=== PATIENT | male | born 1995 | race Caucasian/White ===

== ENCOUNTER 2020-09-13 07:13 | Outpatient (REF) | payer BC, SELFPAY | END 2020-09-13 07:14 | disposition home or self-care (01) | LOC: HO.LAB 07:13 | PROVIDERS: PCP Nurse Practitioner Family; Visit Provider Internal Medicine | DX: Z20.822 Contact with and (suspected) exposure to COVID-19 (principal) | CPT/HCPCS: 36415; C9803; U0003 ==

== ENCOUNTER 2021-04-24 15:04 | Emergency (ER) | payer SELFPAY ==
--- NOTE | ~2021-04-24 | CT_ITS ---
EXAMINATION: CT ABDOMEN AND PELVIS WITH CONTRAST CLINICAL INFORMATION: Abdominal pain. History of gastric bypass and fundoplication. COMPARISON: CT abdomen and pelvis 01/20/2020. TECHNIQUE: Multidetector volumetric images were obtained from the superior aspect of the liver through the pubic symphysis following administration 85 mL of Omnipaque 350 intravenous contrast. Sagittal and coronal reformatted images were obtained on the technologist's workstation. Oral contrast: No This CT examination was performed using dose optimization techniques as appropriate, variously including the following: *Automated exposure control *Adjustment of mA and/or kV according to patient size (this includes techniques or standardized protocols for targeted exams where dose is matched to indication/reason for exam; i.e. extremities or head) *Use of iterative reconstruction technique DLP: 934 mGy-cm FINDINGS: LUNG BASES: The visualized lung bases are unremarkable. LIVER, GALLBLADDER, AND BILIARY TREE: The liver is normal in size, shape, and attenuation. No focal hepatic lesion or biliary ductal dilatation is present. The gallbladder is unremarkable with no evidence of radiopaque gallstones, gallbladder wall thickening, or obvious pericholecystic inflammatory changes. PANCREAS: Unremarkable. SPLEEN: The spleen is unremarkable with a small accessory splenule. ADRENAL GLANDS: Unremarkable. KIDNEYS AND URETERS: The kidneys are normal in size, shape, and attenuation. No hydronephrosis, hydroureter, or calculi seen. No perinephric stranding. There is a 2.4 x 2.1 x 1.9 cm lesion upper/midpole right kidney. No additional cyst or solid mass seen. BLADDER: Unremarkable. GASTROINTESTINAL TRACT: There is scattered stool, gas seen throughout the colon without any significant distention. The small bowel loops are normal caliber. The appendix is not visualized with certainty. No inflammatory process seen in the abdomen. Surgical changes along the gastric fundus are. ABDOMINAL WALL: No significant hernia is appreciated. LYMPH NODES: Normal. VASCULAR: Unremarkable. PELVIC VISCERA: There is no free fluid or free air. OSSEOUS STRUCTURES: Unremarkable. CT/CT abdomen pelvis w con IMPRESSION: No acute intra-abdominal process seen. Postsurgical changes in left epigastric region. Question gastric bypass surgery. Small simple cyst upper/mid pole right kidney, benign.
[2021-04-24 15:36] VITALS: BP 171/110; PULSE 110; RESP 18; TEMP 37; O2SAT 100; BMI 38.7
--- NOTE | 2021-04-24 17:22 | ED.ABDPAIN ---
HPI - Abdominal Pain General Chief Complaint: Abdominal Pain Stated Complaint: HERNIA QUESTION NOT EATING Time Seen by Provider: 04/24/21 21:49 Source: patient Mode of arrival: ambulatory Limitations: no limitations History of Present Illness HPI narrative: 25-year-old male with past medical history of gastric bypass and fundal plication presents with nausea, vomiting, and abdominal pain with tremors. States that his tremor started because of the vomiting, has been vomiting for several days. States that his pain feels similar to when he had a hiatal hernia that required surgical repair. He does not describe any fevers, chills, chest pain or pressure, palpitations, abdominal distention, dysuria, hematuria, diarrhea, constipation, edema, lightheadedness or dizziness. MD elicited complaint: abdominal pain Onset (ago): day(s) Pain Consistency: constant Location: diffuse Severity: moderate Quality: cramping and aching Radiation: epigastric Exacerbating factors: vomiting Associated symptoms: nausea, vomiting and anorexia Related Data Previous Rx's Medication Instructions Recorded ondansetron HCl 4 mg tablet 4 mg PO Q8H PRN #10 tab 04/24/21 (Zofran) Allergies Allergy/AdvReac Type Severity Reaction Status Date / Time amoxicillin Allergy Unknown hives Verified 02/03/20 00:00 Penicillins [PENICILLINS] Allergy Unknown ANAPHYLAXIS Unverified 05/12/20 16:18 red dye [RED DYE] Allergy Unknown UNKNOWN Unverified 05/12/20 16:18 shrimp [SHRIMP] Allergy Unknown UNKNOWN Unverified 05/12/20 16:18 Sulfa (Sulfonamide Allergy Unknown hives Verified 02/03/20 00:00 Antibiotics) sulfamethoxazole Allergy Unknown UNKNOWN Unverified 05/12/20 16:18 [From BACTRIM] trimethoprim [From BACTRIM] Allergy Unknown UNKNOWN Unverified 05/12/20 16:18 Biaxin Allergy Unknown hives Uncoded 02/03/20 00:00 SEAFOOD Allergy Unknown UNKNOWN Uncoded 05/12/20 16:18 Review of Systems Review of Systems Constitutional: No Weight loss, No Fever, No Chills, No Night Sweats, No Fatigue, No Malaise ENT/Mouth: No Hearing loss, No Ear Pain, No Nasal Congestion, No Sinus Pain, No Hoarseness, No sore throat, No Rhinorrhea, No Swallowing Difficulty Eyes: No Eye Pain, No Swelling, No Redness, No Foreign Body, No Discharge, No Vision Changes Cardiovascular: No Chest Pain, No SOB, No Dyspnea on Exertion, No Orthopnea, No Edema, No Palpitations Respiratory: No Cough, No Sputum, No Wheezing, No Smoke Exposure, No Dyspnea Gastrointestinal: Positive Nausea, Positive Vomiting, no Diarrhea, positive abdominal Pain, No Hematochezia, No Melena Genitourinary: no irregular bleeding, No Dysuria, No Urinary Frequency, No Hematuria, No Urinary Incontinence, No Urgency, No Flank Pain, No Urinary Flow Changes, No Hesitancy Musculoskeletal: No joint pain, No Myalgias, No Joint Swelling Skin: No Skin Lesions, No rash Neuro: No Weakness, No Numbness, No Paresthesias, No Loss of Consciousness, No Dizziness, No Headache Psych: No Anxiety/Panic, No Depression, No SI/HI/AH/VH, No Social Issues Heme/Lymph: No Bruising, No Bleeding,No Lymphadenopathy Endocrine: No Polyuria, No Polydipsia, No Temperature Intolerance Yes all other systems are reviewed and are negative Physical Exam Vital Signs: Vital Signs: Last Vital Signs Temp 98 F 04/24/21 22:00 Pulse 88 04/24/21 22:00 Resp 16 04/24/21 22:00 BP 162/93 H 04/24/21 22:00 Pulse Ox 97 04/24/21 22:00 Body Mass Index 38.7 Appearance: Alert. Oriented X3. No acute distress. Eyes: Pupils equal, round and reactive to light. Sclera nonicteric ENT: Pharynx normal. Moist mucous membranes. Neck: Normal inspection. Neck supple. CVS: Tachycardic heart rate and rhythm. Pulses normal. Respiratory: No respiratory distress. Breath sounds normal. Abdomen: Soft and diffusely tender however greater in the epigastric area. Skin: Skin warm and dry. Normal skin color. Normal skin turgor. Extremities: Moves all extremities against resistance. Gait well-balanced and well coordinated. Neuro: No motor deficit. No sensory deficit. Cranial nerves 2-12 intact. Course Course Course Narrative: 25-year-old male status post gastric bypass and fundoplication presents with abdominal pain, nausea, vomiting, and tremors. Will order CT scan of abdomen pelvis with contrast, and labs. Will give something for pain, and Zofran for nausea. Labs indicate hypomagnesemia, CT scan is negative for acute findings. Patient continues with nausea, given Reglan and Benadryl. Patient is able to tolerate p.o. fluids. Discussion with on-call bariatric surgery PA, plan is for patient to follow-up in office as needed. Patient verbalizes understanding of and agrees to plan of care discharge home. Consultations Consultation #1: [place] Time: 22:00 MDM - Abdominal Pain Differential Diagnosis Differential diagnosis: Likely abdominal pain, aortic dissection, acute appendicitis, gastroenteritis, gastritis and pancreatitis Medical Records Attestation: I reviewed the patient's medical records. Lab Data Attestation: I reviewed the patient's lab results. Result diagrams: 04/24/21 18:31 04/24/21 18:31 Labs: Lab Results 04/24/21 04/24/21 04/24/21 Range/Units 18:31 18:31 18:31 WBC 10.5 (4.8-10.8) X10*3/uL RBC 4.33 L (4.60-5.80) X10*6/uL Hgb 14.9 (14.0-18.0) g/dl Hct 40.9 L (42-52) % MCV 94.5 (80-98) fL MCH 34.4 H (27.0-33.0) pg MCHC 36.4 H (31.0-36.0) g/dl RDW 13.9 (11.0-16.0) % Plt Count 266 (160-400) X10*3/uL MPV 9.4 (9.4-12.4) fL Immature Gran % (Auto) 0.3 (0.0-0.4) % Neut % (Auto) 85.6 H (45-73) % Lymph % (Auto) 7.1 L (20-40) % [place] % (Auto) 6.8 (2-11) % Eos % (Auto) 0.0 (0-4) % Baso % (Auto) 0.2 (0-2) % Lymph # (Auto) 0.7 L (1.2-4.9) X10*3/uL [place] # (Auto) 0.7 (0.1-1.2) X10*3/uL Eos # (Auto) 0.0 (0.0-0.4) X10*3/uL Baso # (Auto) 0.0 (0.0-0.2) X10*3/uL Abs Immat Gran (auto) 0.03 (0.00-0.03) X10*3/uL Absolute Neuts (auto) 9.0 H (2.0-8.3) X10*3/uL Absolute Nucleated RBC 0.000 (0.0-0.012) X10*3/uL Nucleated RBC % (auto) 0.0 (0.0-0.2) /100WBC Sodium 136 (135-145) mmol/L Potassium 3.6 (3.3-5.1) mmol/L Chloride 93 L (96-108) mmol/L Carbon Dioxide 26 (22-29) mmol/L Anion Gap 21 H (12-20) BUN 6 L (9-16) mg/dL Creatinine 0.76 (0.5-1.4) mg/dL Estim Creat Clear Calc 193.3 Estimated GFR > 60 Random Glucose 116 H (60-115) mg/dL Lactic Acid (0.5-2.0) mmol/L Calcium 9.8 (8.4-10.2) mg/dL Magnesium 1.3 L* (1.6-2.6) mg/dL Total Bilirubin 1.9 H (0.0-1.0) mg/dL Direct Bilirubin 0.8 H (0.0-0.5) mg/dL AST 74 H (5-37) U/L ALT 49 H (0-40) U/L Alkaline Phosphatase 128 H (39-117) U/L Total Protein 7.6 (6.5-8.0) g/dL Albumin 4.6 (3.5-5.0) g/dL Lipase 23 (8-78) U/L Coronavirus (PCR) (Negative) Influenza Type A (PCR) (Negative) Influenza Type B (PCR) (Negative) RSV RNA Qual (PCR) (Negative) 04/24/21 04/24/21 Range/Units 18:31 18:31 WBC (4.8-10.8) X10*3/uL RBC (4.60-5.80) X10*6/uL Hgb (14.0-18.0) g/dl Hct (42-52) % MCV (80-98) fL MCH (27.0-33.0) pg MCHC (31.0-36.0) g/dl RDW (11.0-16.0) % Plt Count (160-400) X10*3/uL MPV (9.4-12.4) fL Immature Gran % (Auto) (0.0-0.4) % Neut % (Auto) (45-73) % Lymph % (Auto) (20-40) % [place] % (Auto) (2-11) % Eos % (Auto) (0-4) % Baso % (Auto) (0-2) % Lymph # (Auto) (1.2-4.9) X10*3/uL [place] # (Auto) (0.1-1.2) X10*3/uL Eos # (Auto) (0.0-0.4) X10*3/uL Baso # (Auto) (0.0-0.2) X10*3/uL Abs Immat Gran (auto) (0.00-0.03) X10*3/uL Absolute Neuts (auto) (2.0-8.3) X10*3/uL Absolute Nucleated RBC (0.0-0.012) X10*3/uL Nucleated RBC % (auto) (0.0-0.2) /100WBC Sodium (135-145) mmol/L Potassium (3.3-5.1) mmol/L Chloride (96-108) mmol/L Carbon Dioxide (22-29) mmol/L Anion Gap (12-20) BUN (9-16) mg/dL Creatinine (0.5-1.4) mg/dL Estim Creat Clear Calc Estimated GFR Random Glucose (60-115) mg/dL Lactic Acid 1.8 (0.5-2.0) mmol/L Calcium (8.4-10.2) mg/dL Magnesium (1.6-2.6) mg/dL Total Bilirubin (0.0-1.0) mg/dL Direct Bilirubin (0.0-0.5) mg/dL AST (5-37) U/L ALT (0-40) U/L Alkaline Phosphatase (39-117) U/L Total Protein (6.5-8.0) g/dL Albumin (3.5-5.0) g/dL Lipase (8-78) U/L Coronavirus (PCR) NEGATIVE (Negative) Influenza Type A (PCR) NEGATIVE (Negative) Influenza Type B (PCR) NEGATIVE (Negative) RSV RNA Qual (PCR) NEGATIVE (Negative) Imaging Data CT abdomen pelvis: Attestation: I personally reviewed and interpreted this imaging study as follows: Radiologist's impression: FINDINGS: LUNG BASES: The visualized lung bases are unremarkable.? LIVER, GALLBLADDER, AND BILIARY TREE: The liver is normal in size, shape, and attenuation. No focal hepatic lesion or biliary ductal dilatation is present. The gallbladder is unremarkable with no evidence of radiopaque gallstones, gallbladder wall thickening, or obvious pericholecystic inflammatory changes.? PANCREAS: Unremarkable.? SPLEEN: The spleen is unremarkable with a small accessory splenule.? ADRENAL GLANDS: Unremarkable.? KIDNEYS AND URETERS: The kidneys are normal in size, shape, and attenuation. No hydronephrosis, hydroureter, or calculi seen. No perinephric stranding. There is a 2.4 x 2.1 x 1.9 cm lesion upper/midpole right kidney. No additional cyst or solid mass seen. BLADDER: Unremarkable.? GASTROINTESTINAL TRACT: There is scattered stool, gas seen throughout the colon without any significant distention. The small bowel loops are normal caliber. The appendix is not visualized with certainty. No inflammatory process seen in the abdomen. Surgical changes along the gastric fundus are.? ABDOMINAL WALL: No significant hernia is appreciated.? LYMPH NODES: Normal. VASCULAR: Unremarkable. PELVIC VISCERA: There is no free fluid or free air.? OSSEOUS STRUCTURES: Unremarkable.? CT/CT abdomen pelvis w con IMPRESSION: No acute intra-abdominal process seen. ? Postsurgical changes in left epigastric region. Question gastric bypass surgery. ? Small simple cyst upper/mid pole right kidney, benign. Discharge Plan Discharge Clinical Impression: Hypomagnesemia Abdominal pain Qualifiers: Abdominal location: generalized Qualified Code(s): R10.84 - Generalized abdominal pain Nausea & vomiting Qualifiers: Vomiting type: bilious vomiting Qualified Code(s): R11.14 - Bilious vomiting Patient Disposition: Home, Self-Care Instructions: Acute Nausea and Vomiting (ED), Abdominal Pain (ED), Hypomagnesemia (ED) Additional Instructions: You were evaluated for nausea, vomiting, and abdominal pain. Your lab values indicated a low magnesium level. We repleted or replenished your magnesium with IV magnesium. Please follow-up with primary care physician to get your lab values drawn next week Please follow-up with bariatric surgery. You may follow-up with her own surgeon or call Nickie KO. Use Zofran as needed for nausea and vomiting. Please follow the instructions for this medication. Do not take more medication than prescribed. Thank you for choosing this emergency department for evaluation. Please follow-up with primary care physician as needed. Return to the emergency department for any new, concerning, or worsening symptoms. Prescriptions: New ondansetron HCl [Zofran] 4 mg tablet 4 mg PO Q8H PRN (Reason: nausea and vomiting) Qty: 10 RF: 0 Referrals: Nickie Rose PA-C [[facility] [employer]] - 2 days [facility] Past Medical History Attestation statement: The following information was validated with the patient. Source: old records reviewed Medical History (Updated 04/24/21 @ 22:38 by Frances Gutierrez NP) Hernia Social History Social History Advance Directives: No Advance Directives Information Provided: No
--- NOTE | 2021-04-24 17:25 | ECG_ITS ---
Test Reason : MAGNESIUM DEFFICIENC Blood Pressure : / mmHG Vent. Rate : 089 BPM Atrial Rate : 089 BPM P-R Int : 128 ms QRS Dur : 086 ms QT Int : 364 ms P-R-T Axes : 020 021 -04 degrees QTc Int : 442 ms Normal sinus rhythm Normal ECG No previous ECGs available Referred By: Frances Gutierrez Electronically Signed By:NATHAN MOSES
[2021-04-24] MEDS: Morphine Sulfate 4 MG/ML CARTRIDGE IVPUSH (18:36)
[2021-04-24] MEDS: ondansetron HCL 4 MG/2 ML VIAL IVPUSH (18:36)
[2021-04-24 18:37] LABS: MANUAL DIFF FLAG NO
[2021-04-24] MEDS: 0.9 % Sodium Chloride 1,000 ML 999 ML IVCONT (18:37)
[2021-04-24 18:41] LABS: Basophils Percent Auto 0.2 % (0-2); Hematocrit 40.9 % (42-52); Hemoglobin 14.9 g/dl (14.0-18.0); Imm Gran Abs Auto 0.03 X10*3/uL (0.00-0.03); Imm Gran Pct Auto 0.3 % (0.0-0.4); Lymphocytes Absolute Auto 0.7 X10*3/uL (1.2-4.9); Lymphocytes Percent Auto 7.1 % (20-40); Mean Corpuscular HGB Conc 36.4 g/dl (31.0-36.0); Mean Corpuscular Hemoglobin 34.4 pg (27.0-33.0); Mean Corpuscular Volume 94.5 fL (80-98); Mean Platelet Volume 9.4 fL (9.4-12.4); Monocytes Absolute Auto 0.7 X10*3/uL (0.1-1.2); Monocytes Percent Auto 6.8 % (2-11); Neutrophils Percent Auto 85.6 % (45-73); Platelet Count 266 X10*3/uL (160-400); Red Blood Count 4.33 X10*6/uL (4.60-5.80); Red Cell Distribution Width 13.9 % (11.0-16.0); White Blood Count 10.5 X10*3/uL (4.8-10.8)
--- NOTE | 2021-04-24 18:43 | PC.NURSE ---
this rn faied iv x2, 20 gal lla, 20ga rla. iv initiated 22 ga l hand and pt medicated as ordered.
[2021-04-24 18:58] LABS: Magnesium 1.3 mg/dL (1.6-2.6)
[2021-04-24 19:03] LABS: Lactic Acid 1.8 mmol/L (0.5-2.0)
[2021-04-24 19:17] LABS: Alanine Aminotransferase 49 U/L (0-40); Albumin Level 4.6 g/dL (3.5-5.0); Alkaline Phosphatase 128 U/L (39-117); Anion Gap 21 (12-20); Aspartate Amino Transferase 74 U/L (5-37); Bilirubin Direct 0.8 mg/dL (0.0-0.5); Bilirubin Total 1.9 mg/dL (0.0-1.0); Blood Urea Nitrogen 6 mg/dL (9-16); Calcium 9.8 mg/dL (8.4-10.2); Carbon Dioxide 26 mmol/L (22-29); Chloride 93 mmol/L (96-108); Creatinine Clr Calc Pharmacy 193.3; Estimated Glomerular Filt Rate > 60; Glucose Random 116 mg/dL (60-115); Lipase 23 U/L (8-78); Potassium 3.6 mmol/L (3.3-5.1); Sodium 136 mmol/L (135-145); Total Protein 7.6 g/dL (6.5-8.0)
[2021-04-24 19:29] LABS: Influenza A PCR NEGATIVE (Negative); Influenza B PCR NEGATIVE (Negative); Resp Syncy Virus RNA Qual PCR NEGATIVE (Negative); SARS COV2 PCR INHOUSE NEGATIVE (Negative)
[2021-04-24] MEDS: iohexoL 350 MG/ML 100 ML INFUS..BTL IV (19:34)
[2021-04-24 20:00] VITALS: BP 157/91; PULSE 91; RESP 18; TEMP 26.6; O2SAT 96
[2021-04-24 22:00] VITALS: BP 162/93; PULSE 88; RESP 16; TEMP 36.6; O2SAT 97
[2021-04-24] MEDS: Metoclopramide HCl 10 MG/2 ML VIAL IVPUSH (22:27)
[2021-04-24] MEDS: diphenhydrAMINE HCL 50 MG/ML VIAL 25 MG IVPUSH (22:27)
[2021-04-24] MEDS: Magnesium Sulfate/H2O 2 GM/50 ML PIGGYBACK IV (22:27)
[2021-04-24 23:43] VITALS: BP 146/89; PULSE 80; RESP 18; O2SAT 97
== END 2021-04-24 23:46 | disposition home or self-care (01) ==
PROVIDERS: Nurse Practitioner Family; Emergency Provider Internal Medicine; PCP Nurse Practitioner Family
DX: E83.42 Hypomagnesemia (principal); R10.84 Generalized abdominal pain; R11.14 Bilious vomiting; Z20.822 Contact with and (suspected) exposure to COVID-19; Z98.84 Bariatric surgery status; Z79.899 Other long term (current) drug therapy
CPT/HCPCS: 0241U; 36415; 74177; 80053; 80076; 82248; 83605; 83690; 83735; 85025; 87040; 93005; 96361; 96365; 96366; 96375; 99284; J1200; J2270; J2405; J2765; J3475; Q9967

== ENCOUNTER 2021-05-29 15:21 | Outpatient (REF) | payer OTHER, SELFPAY | END 2021-05-29 15:22 | disposition home or self-care (01) | LOC: HO.LAB 15:21 | PROVIDERS: Visit Provider Internal Medicine | DX: Z20.822 Contact with and (suspected) exposure to COVID-19 (principal) | CPT/HCPCS: U0003; U0005 ==

== ENCOUNTER 2022-04-12 20:52 | Emergency (ER) | payer MEDICAID, SELFPAY ==
--- NOTE | 2022-04-12 | ECG_ITS ---
Test Reason : cheat pain Blood Pressure : / mmHG Vent. Rate : 122 BPM Atrial Rate : 122 BPM P-R Int : 126 ms QRS Dur : 082 ms QT Int : 314 ms P-R-T Axes : 029 078 010 degrees QTc Int : 447 ms Sinus tachycardia Low voltage QRS Septal infarct , age undetermined Abnormal ECG When compared with ECG of 24-APR-2021 21:27, Septal infarct is now Present Referred By: Generic ED Physician Electronically Signed By:NATHAN MOSES
--- NOTE | ~2022-04-12 | XR_ITS ---
EXAMINATION: XR CHEST CLINICAL INFORMATION: Chest pain COMPARISON: 07/12/2018 TECHNIQUE: Frontal view of the chest was obtained. FINDINGS: Low lung volumes. Cardiomediastinal silhouette is normal. Lungs are clear without consolidation, pleural effusion or pneumothorax. No acute osseous abnormalities. XR/XR chest 1V IMPRESSION: Low lung volumes. No acute process.
[2022-04-12 20:59] VITALS: BP 148/94; PULSE 122; RESP 20; TEMP 36.7; O2SAT 96; BMI 37.3
[2022-04-12 21:54] VITALS: BP 134/94; PULSE 108; RESP 20; TEMP 37.7; O2SAT 98
--- NOTE | 2022-04-12 22:01 | PC.NURSE ---
COVID SWAB COLLECTED NOW AND SENT TO THE LAB
--- NOTE | 2022-04-12 22:12 | ED.CHESTPAIN ---
HPI - Chest Pain General Chief Complaint: Chest Pain Stated Complaint: Chest pain and vomiting Time Seen by Provider: 04/12/22 21:33 Source: patient Mode of arrival: ambulatory Limitations: no limitations History of Present Illness HPI narrative: Patient comes to the emergency room complaining of nausea and vomiting. Patient states that 4 days ago, patient went to a green party, the next day patient started having a lot of nausea and vomiting. Patient thought this was secondary to alcohol intoxication. However, as the days went by, his symptoms did not improve. Patient denies any significant abdominal pain, patient complaining of occasional chest pains, occasional shortness of breath. No fever, no chills, no diarrhea. Related Data Previous Rx's Medication Instructions Recorded ondansetron HCl 4 mg tablet 4 mg PO Q8H PRN nausea and 04/24/21 (Zofran) vomiting #10 tabs nirmatrelvir 300 mg (150 mg See Rx Instructions PO .COMPLEX 04/13/22 x2)-ritonavir 100 mg tablet,dose #30 ea pack(EUA) (Paxlovid) ondansetron 4 mg disintegrating 4 mg PO Q6H PRN nausea and 04/13/22 tablet vomiting #10 tabs Allergies Allergy/AdvReac Type Severity Reaction Status Date / Time amoxicillin Allergy Unknown hives Verified 04/12/22 22:01 Penicillins [PENICILLINS] Allergy Unknown ANAPHYLAXIS Verified 04/12/22 22:01 red dye [RED DYE] Allergy Unknown UNKNOWN Verified 04/12/22 22:01 shrimp [SHRIMP] Allergy Unknown UNKNOWN Verified 04/12/22 22:01 Sulfa (Sulfonamide Allergy Unknown hives Verified 04/12/22 22:01 Antibiotics) sulfamethoxazole Allergy Unknown UNKNOWN Verified 04/12/22 22:01 [From BACTRIM] trimethoprim [From BACTRIM] Allergy Unknown UNKNOWN Verified 04/12/22 22:01 Biaxin Allergy Unknown hives Uncoded 02/03/20 00:00 SEAFOOD Allergy Unknown UNKNOWN Uncoded 05/12/20 16:18 Review of Systems Review of Systems: Constitutional : No Weight loss, No Fever, No Chills, No Night Sweats, No Fatigue, No Malaise ENT/Mouth : No Hearing loss, No Ear Pain, No Nasal Congestion, No Sinus Pain, No Hoarseness, No sore throat, No Rhinorrhea, No Swallowing Difficulty Eyes: No Eye Pain, No Swelling, No Redness, No Foreign Body, No Discharge, No Vision Changes Cardiovascular : Complaining of intermittent Chest Pain, No SOB, No Dyspnea on Exertion, No Orthopnea, No Edema, No Palpitations Respiratory : No Cough, No Sputum, No Wheezing, No Smoke Exposure, No Dyspnea Gastrointestinal : Complaining of nausea and vomiting No Diarrhea, No Constipation, No abdominal Pain, No Hematochezia, No Melena Genitourinary : no irregular bleeding, No Dysuria, No Urinary Frequency, No Hematuria, No Urinary Incontinence, No Urgency, No Flank Pain, No Urinary Flow Changes, No Hesitancy Musculoskeletal : No joint pain, No Myalgias, No Joint Swelling Skin : No Skin Lesions, No rash Neuro : No Weakness, No Numbness, No Paresthesias, No Loss of Consciousness, No Dizziness, No Headache Psych : No Anxiety/Panic, No Depression, No SI/HI/AH/VH, No Social Issues, Heme/Lymph: No Bruising, No Bleeding,No Lymphadenopathy Endocrine : No Polyuria, No Polydipsia, No Temperature Intolerance [facility] Past Medical History Medical History (Updated 04/13/22 @ 00:05 by Yamileth Encinas MD) Hernia Social History Social History Alcohol intake: unknown Patient Tobacco Use Status: Never used Tobacco Use of substances other than those prescribed or required for medical reasons: No Advance Directives: No Advance Directives Information Provided: No Physical Exam Vital Signs: Vital Signs: Last Vital Signs Temp 99.5 F 04/12/22 23:58 Pulse 94 04/12/22 23:58 Resp 19 04/12/22 23:58 BP 131/83 04/12/22 23:58 Pulse Ox 98 04/12/22 23:58 O2 Del Method 04/12/22 23:58 BMI result Body Mass Index 37.3 Const: Other: Appearance: Alert. Oriented X3. No acute distress. Eyes: Pupils equal, round and reactive to light. ENT: Pharynx normal. Dry oral mucosa Neck: Normal inspection. Neck supple. No lymph nodes noted. No crepitus CVS: Tachycardic, regular rhythm rhythm. Pulses normal. Normal S1 and S2 Respiratory: No respiratory distress. Breath sounds normal. No Wheezing. No rales Abdomen: Soft and nontender. No rigidity. No distention. Skin: Skin warm and dry. Normal skin color. Normal skin turgor. Extremities: No lower extremity edema. No Lacerations. No Rash Neuro: Oriented X 3. No motor deficit. No sensory deficit. Moving all extremities. No slurred speech. CN 2 through 12 grossly intact Psych: calm, cooperative, anxious Course Course Course Narrative: Of patient's labs are pending. Patient receiving IV fluids and Zofran Patient tested positive for COVID-19. Patient is at day 5 since he has been symptomatic. I discussed with the patient that at this point in time, patient still in the window of treatment for COVID-19, but it may not be as effective. Patient decided to go ahead and get treated. Patient states this is the 3rd time that he gets COVID. Patient refuses to get immunized MDM - Chest Pain Lab Data Result diagrams: 04/12/22 22:14 04/12/22 22:14 Labs: Lab Results 04/12/22 04/12/22 04/12/22 Range/Units 21:58 22:14 22:14 WBC 3.6 L (4.8-10.8) X10*3/uL RBC 3.89 L (4.60-5.80) X10*6/uL Hgb 13.4 L (14.0-18.0) g/dl Hct 38.2 L (42.0-52.0) % MCV 98.2 H (80.0-98.0) fL MCH 34.4 H (27.0-33.0) pg MCHC 35.1 (31.0-36.0) g/dl RDW 15.4 (11.0-16.0) % Plt Count 205 (160-400) X10*3/uL MPV 9.4 (9.4-12.4) fL Immature Gran % (Auto) 0.6 H (0.0-0.4) % Neut % (Auto) 77.1 H (45-73) % Lymph % (Auto) 8.1 L (20-40) % [place] % (Auto) 13.9 H (2-11) % Eos % (Auto) 0.0 (0-4) % Baso % (Auto) 0.3 (0-2) % Lymph # (Auto) 0.3 L (1.2-4.9) X10*3/uL [place] # (Auto) 0.5 (0.1-1.2) X10*3/uL Eos # (Auto) 0.0 (0.0-0.4) X10*3/uL Baso # (Auto) 0.0 (0.0-0.2) X10*3/uL Abs Immat Gran (auto) 0.02 (0.00-0.03) X10*3/uL Absolute Neuts (auto) 2.8 (2.0-8.3) x10*3/uL Absolute Nucleated RBC 0.000 (0.0-0.012) X10*3/uL Nucleated RBC % (auto) 0.0 (0.0-0.2) /100WBC Troponin I High Sens < 3.5 (<3.5-35.0) ng/L Urine Color Urine Appearance Urine pH (5.0-8.0) Ur Specific [place] (1.005-1.025) Urine Protein (Neg-Trace) mg/dL Urine Glucose (UA) (Negative) mg/dL Urine Ketones (Negative) mg/dL Urine Blood (Negative) Urine Nitrite (Negative) Ur Leukocyte Esterase (Negative) Urine RBC (0-2) /HPF Urine WBC (0-5) /HPF Ur Squamous Epith Cells (0-2) /HPF Urine Bacteria (None Seen) Hyaline Casts (0-2) /LPF Urine Fentanyl Screen (Not Detect) Ur Barbiturates Screen (Not Detect) Ur Phencyclidine Scrn (Not Detect) Ur Amphetamines Screen (Not Detect) U Benzodiazepines Scrn (Not Detect) Urine Cocaine Screen (Not Detect) U Marijuana (THC) Screen (Not Detect) COVID-19 (SARAH) Positive A (Negative) COVID-19 Clin Com See Note 04/12/22 04/12/22 Range/Units 22:56 22:56 WBC (4.8-10.8) X10*3/uL RBC (4.60-5.80) X10*6/uL Hgb (14.0-18.0) g/dl Hct (42.0-52.0) % MCV (80.0-98.0) fL MCH (27.0-33.0) pg MCHC (31.0-36.0) g/dl RDW (11.0-16.0) % Plt Count (160-400) X10*3/uL MPV (9.4-12.4) fL Immature Gran % (Auto) (0.0-0.4) % Neut % (Auto) (45-73) % Lymph % (Auto) (20-40) % [place] % (Auto) (2-11) % Eos % (Auto) (0-4) % Baso % (Auto) (0-2) % Lymph # (Auto) (1.2-4.9) X10*3/uL [place] # (Auto) (0.1-1.2) X10*3/uL Eos # (Auto) (0.0-0.4) X10*3/uL Baso # (Auto) (0.0-0.2) X10*3/uL Abs Immat Gran (auto) (0.00-0.03) X10*3/uL Absolute Neuts (auto) (2.0-8.3) x10*3/uL Absolute Nucleated RBC (0.0-0.012) X10*3/uL Nucleated RBC % (auto) (0.0-0.2) /100WBC Troponin I High Sens (<3.5-35.0) ng/L Urine Color Dark Yellow Urine Appearance Cloudy Urine pH 6.0 (5.0-8.0) Ur Specific [place] 1.025 (1.005-1.025) Urine Protein 30 (1+) H (Neg-Trace) mg/dL Urine Glucose (UA) Negative (Negative) mg/dL Urine Ketones Trace (Negative) mg/dL Urine Blood Negative (Negative) Urine Nitrite Negative (Negative) Ur Leukocyte Esterase Trace H (Negative) Urine RBC 0-2 (0-2) /HPF Urine WBC 0-5 (0-5) /HPF Ur Squamous Epith Cells 6-10 (0-2) /HPF Urine Bacteria None Seen (None Seen) Hyaline Casts 11-20 (0-2) /LPF Urine Fentanyl Screen Not Detected (Not Detect) Ur Barbiturates Screen Not Detected (Not Detect) Ur Phencyclidine Scrn Not Detected (Not Detect) Ur Amphetamines Screen Not Detected (Not Detect) U Benzodiazepines Scrn Not Detected (Not Detect) Urine Cocaine Screen Not Detected (Not Detect) U Marijuana (THC) Screen POSITIVE H (Not Detect) COVID-19 (SARAH) (Negative) COVID-19 Clin Com Discharge Plan Discharge Clinical Impression: COVID-19, Nausea & vomiting Patient Disposition: Home, Self-Care Instructions: COVID-19 (Coronavirus Disease 2019) (ED) Additional Instructions: Please follow-up with your primary care physician tomorrow. If you have any worsening or new symptoms, please return to the emergency room or call 911 Prescriptions: New Paxlovid (EUA) 300 mg (150 mg x 2)-100 mg tablets,dose pack See Rx Instructions .ROUTE .COMPLEX Qty: 30 0RF Rx Instructions: take TWO 150 mg tablets of nirmatrelvir with ONE 100 mg tablet of ritonavir twice daily for 5 days ondansetron 4 mg tablet,disintegrating 4 mg PO Q6H PRN (Reason: nausea and vomiting) Qty: 10 0RF No Action ondansetron HCl [Zofran] 4 mg tablet 4 mg PO Q8H PRN (Reason: nausea and vomiting) Qty: 10 0RF
[2022-04-12 22:19] LABS: COVID-19 Test Positive (Negative)
[2022-04-12] MEDS: ondansetron HCL 4 MG/2 ML VIAL IVPUSH (22:20)
[2022-04-12 22:23] LABS: Basophils Percent Auto 0.3 % (0-2); Hematocrit 38.2 % (42.0-52.0); Hemoglobin 13.4 g/dl (14.0-18.0); Imm Gran Abs Auto 0.02 X10*3/uL (0.00-0.03); Imm Gran Pct Auto 0.6 % (0.0-0.4); Lymphocytes Absolute Auto 0.3 X10*3/uL (1.2-4.9); Lymphocytes Percent Auto 8.1 % (20-40); MANUAL DIFF FLAG NO; Mean Corpuscular HGB Conc 35.1 g/dl (31.0-36.0); Mean Corpuscular Hemoglobin 34.4 pg (27.0-33.0); Mean Corpuscular Volume 98.2 fL (80.0-98.0); Mean Platelet Volume 9.4 fL (9.4-12.4); Monocytes Absolute Auto 0.5 X10*3/uL (0.1-1.2); Monocytes Percent Auto 13.9 % (2-11); Neutrophils Absolute Auto 2.8 x10*3/uL (2.0-8.3); Neutrophils Percent Auto 77.1 % (45-73); Platelet Count 205 X10*3/uL (160-400); Red Blood Count 3.89 X10*6/uL (4.60-5.80); Red Cell Distribution Width 15.4 % (11.0-16.0); White Blood Count 3.6 X10*3/uL (4.8-10.8)
[2022-04-12] MEDS: 0.9 % Sodium Chloride 2,000 ML 999 ML IVCONT (22:23)
[2022-04-12 22:45] LABS: Troponin-I High Sensitivity < 3.5 ng/L (<3.5-35.0)
[2022-04-12 23:05] LABS: Appearance Urine Cloudy; Color Urine Dark Yellow; Glucose Urine UA Negative (Negative); Leukocyte Esterase Urine Trace (Negative); Nitrite Urine Negative (Negative); Specific Gravity - Urine 1.025 (1.005-1.025); Urine Blood Negative (Negative); Urine Ketones Trace mg/dL (Negative); Urine Protein 30 (1+) mg/dL (Neg-Trace)
[2022-04-12 23:18] LABS: Bacteria Urine None Seen (None Seen); RBC Urine 0-2 /HPF (0-2); WBC Urine 0-5 /HPF (0-5)
[2022-04-12 23:58] VITALS: BP 131/83; PULSE 94; RESP 19; TEMP 37.5; O2SAT 98
--- NOTE | 2022-04-13 00:29 | PC.NURSE ---
d/c education provided, iv access removed, questions address no further concerns at this time, pt left with his father ambulatory steady gait no difficulty, pt able to dress himself with no issues
[2022-04-13 00:36] LABS: Anion Gap 18 (12-20); Blood Urea Nitrogen 2 mg/dL (9-16); Calcium 8.1 mg/dL (8.4-10.2); Carbon Dioxide 25 mmol/L (22-29); Chloride 99 mmol/L (96-108); Creatinine Clr Calc Pharmacy 203.9; Estimated Glomerular Filt Rate > 60; Glucose Random 90 mg/dL (60-115); Magnesium 0.9 mg/dL (1.6-2.6); Potassium 3.6 mmol/L (3.3-5.1); Sodium 138 mmol/L (135-145)
[2022-04-13 01:43] LABS: Amphetamine Screen Urine Not Detected (Not Detect); Barbiturates, Urine Not Detected (Not Detect); Benzodiazepines Screen Urine Not Detected (Not Detect); Cannabinoid Screen Urine POSITIVE (Not Detect); Cocaine Screen Urine Not Detected (Not Detect); Fentanyl, urine Not Detected (Not Detect); Opiate Screen Urine Not Detected (Not Detect); Phencyclidine Screen Urine Not Detected (Not Detect)
== END 2022-04-13 00:32 | disposition home or self-care (01) ==
PROVIDERS: Emergency Provider Emergency Medicine; PCP Nurse Practitioner Family
DX: U07.1 COVID-19 (principal); R11.2 Nausea with vomiting, unspecified; F12.90 Cannabis use, unspecified, uncomplicated
CPT/HCPCS: 36415; 71045; 80048; 80307; 81001; 83735; 84484; 85025; 87635; 93005; 96361; 96374; 99284; 99285; J2405

== ENCOUNTER 2022-04-13 00:51 | Emergency (ER) | payer MEDICAID, SELFPAY ==
[2022-04-13 00:53] VITALS: BP 140/91; PULSE 220; RESP 20; TEMP 36.7; O2SAT 97; BMI 37.3
--- NOTE | 2022-04-13 01:02 | ED_ITS ---
HPI - Recheck/Abnormal Lab/Rx General Chief Complaint: Recheck/Abnormal Lab/Rx Stated Complaint: mg+ low, was called Time Seen by Provider: 04/13/22 01:01 Source: patient Mode of arrival: ambulatory Limitations: no limitations History of Present Illness HPI narrative: Patient was discharged from the hospital, there was a delay in labs. After the patient left, the lab called and informed me that the patient's magnesium is 0.9. I called the patient back. Related Data Previous Rx's Medication Instructions Recorded ondansetron HCl 4 mg tablet 4 mg PO Q8H PRN nausea and 04/24/21 (Zofran) vomiting #10 tabs nirmatrelvir 300 mg (150 mg See Rx Instructions PO .COMPLEX 04/13/22 x2)-ritonavir 100 mg tablet,dose #30 ea pack(EUA) (Paxlovid) ondansetron 4 mg disintegrating 4 mg PO Q6H PRN nausea and 04/13/22 tablet vomiting #10 tabs Allergies Allergy/AdvReac Type Severity Reaction Status Date / Time amoxicillin Allergy Unknown hives Verified 04/12/22 22:01 Penicillins [PENICILLINS] Allergy Unknown ANAPHYLAXIS Verified 04/12/22 22:01 red dye [RED DYE] Allergy Unknown UNKNOWN Verified 04/12/22 22:01 shrimp [SHRIMP] Allergy Unknown UNKNOWN Verified 04/12/22 22:01 Sulfa (Sulfonamide Allergy Unknown hives Verified 04/12/22 22:01 Antibiotics) sulfamethoxazole Allergy Unknown UNKNOWN Verified 04/12/22 22:01 [From BACTRIM] trimethoprim [From BACTRIM] Allergy Unknown UNKNOWN Verified 04/12/22 22:01 Biaxin Allergy Unknown hives Uncoded 02/03/20 00:00 SEAFOOD Allergy Unknown UNKNOWN Uncoded 05/12/20 16:18 Review of Systems Review of Systems: Constitutional : No Weight loss, No Fever, No Chills, No Night Sweats, No Fatigue, No Malaise ENT/Mouth : No Hearing loss, No Ear Pain, No Nasal Congestion, No Sinus Pain, No Hoarseness, No sore throat, No Rhinorrhea, No Swallowing Difficulty Eyes: No Eye Pain, No Swelling, No Redness, No Foreign Body, No Discharge, No Vision Changes Cardiovascular : No Chest Pain, No SOB, No Dyspnea on Exertion, No Orthopnea, No Edema, No Palpitations Respiratory : No Cough, No Sputum, No Wheezing, No Smoke Exposure, No Dyspnea Gastrointestinal : No Nausea, No Vomiting, No Diarrhea, No Constipation, No abdominal Pain, No Hematochezia, No Melena Genitourinary : no irregular bleeding, No Dysuria, No Urinary Frequency, No Hematuria, No Urinary Incontinence, No Urgency, No Flank Pain, No Urinary Flow Changes, No Hesitancy Musculoskeletal : No joint pain, No Myalgias, No Joint Swelling Skin : No Skin Lesions, No rash Neuro : No Weakness, No Numbness, No Paresthesias, No Loss of Consciousness, No Dizziness, No Headache Psych : No Anxiety/Panic, No Depression, No SI/HI/AH/VH, No Social Issues, Heme/Lymph: No Bruising, No Bleeding,No Lymphadenopathy Endocrine : No Polyuria, No Polydipsia, No Temperature Intolerance PMFSH Past Medical History Medical History Hernia Social History Social History Alcohol intake: unknown Patient Tobacco Use Status: Never used Tobacco Use of substances other than those prescribed or required for medical reasons: No Advance Directives: No Physical Exam Vital Signs: Vital Signs: Last Vital Signs Temp 98.0 F 04/13/22 00:53 Pulse 96 04/13/22 01:35 Resp 18 04/13/22 01:35 BP 140/91 H 04/13/22 00:53 Pulse Ox 97 04/13/22 00:53 O2 Del Method 04/13/22 00:53 BMI result Body Mass Index 37.3 Const: Other: Appearance: Alert. Oriented X3. No acute distress. Eyes: Pupils equal, round and reactive to light. ENT: Pharynx normal. Neck: Normal inspection. Neck supple. No lymph nodes noted. No crepitus CVS: Normal heart rate and rhythm. Pulses normal. Normal S1 and S2 Respiratory: No respiratory distress. Breath sounds normal. No Wheezing. No rales Abdomen: Soft and nontender. No rigidity. No distention. Skin: Skin warm and dry. Normal skin color. Normal skin turgor. Extremities: No lower extremity edema. No Lacerations. No Rash Neuro: Oriented X 3. No motor deficit. No sensory deficit. Moving all extremities. No slurred speech. CN 2 through 12 grossly intact Psych: calm, cooperative, normal affect Course Course Course Narrative: Patient is being given IV magnesium 2 g. Magnesium levels need to be recheck. If normal eyes, patient to be discharged. Sign-out given to Dr. Martínez Discharge Plan Discharge Clinical Impression: Hypomagnesemia Patient Disposition: Still a Patient Instructions: Hypomagnesemia (ED) Additional Instructions: Please follow-up with your primary care physician tomorrow. If you have any wor sening or new symptoms, please return to the emergency room or call 911 Prescriptions: No Action ondansetron HCl [Zofran] 4 mg tablet 4 mg PO Q8H PRN (Reason: nausea and vomiting) Qty: 10 0RF Paxlovid (EUA) 300 mg (150 mg x 2)-100 mg tablets,dose pack See Rx Instructions .ROUTE .COMPLEX Qty: 30 0RF Rx Instructions: take TWO 150 mg tablets of nirmatrelvir with ONE 100 mg tablet of ritonavir twice daily for 5 days ondansetron 4 mg tablet,disintegrating 4 mg PO Q6H PRN (Reason: nausea and vomiting) Qty: 10 0RF
[2022-04-13] MEDS: Magnesium Sulfate/H2O 2 GM/50 ML PIGGYBACK IV (01:30)
[2022-04-13 01:35] VITALS: PULSE 96; RESP 18
--- NOTE | 2022-04-13 02:41 | PC.NURSE ---
redraw of blood work being done now
[2022-04-13 03:16] LABS: Magnesium 1.4 mg/dL (1.6-2.6)
[2022-04-13] MEDS: Magnesium Oxide 400 MG TABLET 800 MG PO (03:47)
[2022-04-13 03:55] VITALS: BP 154/94; PULSE 108; RESP 21; TEMP 37.8
== END 2022-04-13 03:58 | disposition home or self-care (01) ==
PROVIDERS: Emergency Provider Emergency Medicine
DX: E83.42 Hypomagnesemia (principal); R79.89 Other specified abnormal findings of blood chemistry; Z79.899 Other long term (current) drug therapy
CPT/HCPCS: 36415; 83735; 96374; 99284; J3475

== ENCOUNTER 2023-08-24 09:08 | Inpatient (IN) | payer MEDICAID, SELFPAY ==
--- NOTE | ~2023-08-24 | XR_ITS ---
EXAMINATION: XR TOES, LEFT CLINICAL INFORMATION: Great toe pain and swelling. Evaluate for fracture. COMPARISON: None available. TECHNIQUE: 3 views of the left toes were obtained. FINDINGS: No acute fracture or dislocation. Tiny first metatarsophalangeal joint marginal osteophytes. No osseous erosion. Small cortical irregularity along the medial aspect of the distal phalangeal base which could represent normal variation versus a small osteochondroma. No concerning lytic or blastic osseous lesion. XR/XR toe LT min 2V IMPRESSION: 1. No acute fracture or dislocation. 2. Mild first metatarsophalangeal degenerative arthritis.
[2023-08-24 09:23] VITALS: BP 140/79; PULSE 126; RESP 20; TEMP 35.9; O2SAT 100; BMI 39.5
[2023-08-24 09:56] LABS: MANUAL DIFF FLAG NO
[2023-08-24 09:58] LABS: Basophils Percent Auto 0.2 % (0-2); Eosinophils Absolute Auto 0.1 X10*3/uL (0.0-0.4); Eosinophils Percent Auto 0.8 % (0-4); Hematocrit 30.4 % (42.0-52.0); Hemoglobin 11.1 g/dl (14.0-18.0); Imm Gran Abs Auto 0.08 X10*3/uL (0.00-0.03); Imm Gran Pct Auto 0.8 % (0.0-0.4); Lymphocytes Absolute Auto 1.6 X10*3/uL (1.2-4.9); Lymphocytes Percent Auto 16.5 % (20-40); Mean Corpuscular HGB Conc 36.5 g/dl (31.0-36.0); Mean Platelet Volume 8.9 fL (9.4-12.4); Monocytes Absolute Auto 0.6 X10*3/uL (0.1-1.2); Monocytes Percent Auto 5.9 % (2-11); NRBC Pct Auto 0.5 /100WBC (0.0-0.2); Neutrophils Absolute Auto 7.5 x10*3/uL (2.0-8.3); Neutrophils Percent Auto 75.8 % (45-73); Platelet Count 399 X10*3/uL (160-400); Red Blood Count 2.64 X10*6/uL (4.60-5.80); Red Cell Distribution Width 18.2 % (11.0-16.0); White Blood Count 9.9 X10*3/uL (4.8-10.8)
[2023-08-24 10:06] LABS: Mean Corpuscular Volume 115.2 fL (80.0-98.0)
[2023-08-24 10:12] LABS: Alanine Aminotransferase 25 U/L (0-40); Albumin Level 3.5 g/dL (3.5-5.0); Alkaline Phosphatase 171 U/L (39-117); Anion Gap 17 (12-20); Aspartate Amino Transferase 40 U/L (5-37); Bilirubin Direct 0.3 mg/dL (0.0-0.5); Bilirubin Total 0.5 mg/dL (0.0-1.0); Blood Urea Nitrogen 3 mg/dL (9-16); Calcium 6.7 mg/dL (8.4-10.2); Carbon Dioxide 25 mmol/L (22-29); Chloride 100 mmol/L (96-108); Creatinine Clr Calc Pharmacy 231.3; Estimated Glomerular Filt Rate > 60; Glucose Random 115 mg/dL (60-115); Lipase 21 U/L (8-78); Magnesium 1.5 mg/dL (1.6-2.6); Potassium 2.8 mmol/L (3.3-5.1); Sodium 139 mmol/L (135-145); Total Protein 6.8 g/dL (6.5-8.0)
--- NOTE | 2023-08-24 11:32 | ECG_ITS ---
Test Reason : SOB Blood Pressure : / mmHG Vent. Rate : 103 BPM Atrial Rate : 103 BPM P-R Int : 124 ms QRS Dur : 080 ms QT Int : 374 ms P-R-T Axes : 010 020 000 degrees QTc Int : 489 ms Sinus tachycardia Otherwise normal ECG When compared with ECG of 12-APR-2022 21:06, Questionable change in QRS axis Referred By: Darlyn Watts Electronically Signed By:FRANCISCO MCKEON
--- NOTE | 2023-08-24 11:49 | ED.WEAKNESS ---
HPI - Weakness General Chief complaint: General Medical Stated complaint: unable to move legs Time Seen by Provider: 08/24/23 11:32 Source: patient and family Mode of arrival: ambulatory Limitations: no limitations History of Present Illness HPI Narrative: 27 yo male with PMH of alcohol abuse drinks a pint or more a day has been trying to cut down denies any recent n/v/d or URI over the past week he tries to walk and his legs feel weak and numb and he has a hard time getting around. He has fallen no head trauma. He went to normal xrays. He has never had a seizure from withdrawal but shakes in the AM without ETOH, last drink was yesterday. MD Complaint: generalized weakness, numbness and difficulty walking Onset (ago): week(s) (1) Duration: intermittent Location: LLE and RLE Migration: none Severity: moderate Quality: numbness and aching Relieving factors: rest Exacerbating factors: movement and exertion Context: other (heavy ETOH use) Associated symptoms: other (anxiety, tremors) Related Data Allergies Allergy/AdvReac Type Severity Reaction Status Date / Time amoxicillin Allergy Unknown hives Verified 08/24/23 09:26 Penicillins [PENICILLINS] Allergy Unknown ANAPHYLAXIS Verified 08/24/23 09:26 red dye [RED DYE] Allergy Unknown UNKNOWN Verified 08/24/23 09:26 shrimp [SHRIMP] Allergy Unknown UNKNOWN Verified 08/24/23 09:26 Sulfa (Sulfonamide Allergy Unknown hives Verified 08/24/23 09:26 Antibiotics) sulfamethoxazole Allergy Unknown UNKNOWN Verified 08/24/23 09:26 [From BACTRIM] trimethoprim [From BACTRIM] Allergy Unknown UNKNOWN Verified 08/24/23 09:26 Biaxin Allergy Unknown hives Uncoded 02/03/20 00:00 SEAFOOD Allergy Unknown UNKNOWN Uncoded 05/12/20 16:18 Review of Systems Review of Systems: Constitutional : No Fever, No Chills, No Fatigue ENT/Mouth : No sore throat, No Rhinorrhea Eyes: No Eye Pain, No Swelling, No Redness Cardiovascular : No Chest Pain, No SOB, No Dyspnea on Exertion Respiratory : No Cough, No Sputum Gastrointestinal : No Nausea, No Vomiting, No Diarrhea, No abdominal Pain Genitourinary : No Dysuria, No Urinary Frequency, No Hematuria, Musculoskeletal : No joint pain, No Myalgias, No Joint Swelling Skin : No Skin Lesions, No rash Neuro : pos Weakness, pos Numbness, No Dizziness, no Headache Psych : pos Anxiety/Panic, No Depression All other systems reviewed and are negative [facility] Past Medical History Source: old records reviewed Medical History (Updated 08/24/23 @ 12:11 by Darlyn Watts DO) Alcoholism Hernia Social History Social History (Updated 08/24/23 @ 12:05 by Darlyn Watts DO) Alcohol intake: current Patient Tobacco Use Status: Never used Tobacco Advance Directives: No Physical Exam Vital Signs: Vital Signs: Last Vital Signs Temp 96.7 F L 08/24/23 09:23 Pulse 126 H 08/24/23 09:23 Resp 20 08/24/23 09:23 BP 140/79 H 08/24/23 09:23 Pulse Ox 100 08/24/23 09:23 O2 Del Method Room Air 08/24/23 09:23 BMI result Body Mass Index 39.5 Appearance: Alert. Oriented X3. No acute distress. Anxious, tremors in both hands noted Eyes: Pupils equal, round and reactive to light. ENT: Pharynx dry MM, tongue fasciculations Neck: Normal inspection. Neck supple. CVS: taachycardic heart rate and rhythm. Pulses normal. Respiratory: No respiratory distress. Breath sounds normal. Abdomen: Soft and non-tender. Skin: Skin warm and dry. Normal skin color. Normal skin turgor. Extremities: No lower extremity edema. No calf ttp Neuro: Oriented X 3. No motor deficit. No sensory deficit. Sensation in legs, normal reflexes, pain to palpation on both plantar surfaces Medications Administered Generic Name Dose Route Start Last Admin Trade Name Freq PRN Reason Stop Dose Admin Sodium Chloride 1,000 mls @ 999 mls/hr 08/24/23 11:45 08/24/23 12:23 Ns IV 08/24/23 12:45 999 mls/hr .Q1H1M MICHAEL Administration Discontinued Medications Generic Name Dose Route Start Last Admin Trade Name Freq PRN Reason Stop Dose Admin Phenobarbital Sodium 292 mg 08/24/23 12:00 08/24/23 12:22 Phenobarbital Sodium 130 Mg/Ml Im Once IM 08/24/23 12:01 292 mg ONCE ONE Administration Protocol Potassium Chloride 40 meq 08/24/23 11:31 08/24/23 12:23 Potassium Chloride Packet 20 Meq Packet PO 08/24/23 11:32 40 meq ONCE ONE Administration Medical Decision Making Medical Decision Making [facility] Narrative: 27 yo male heavy ETOH use with hx of tremors he appears in withdrawal now - at this time has LE weakness and numbness he is NV intact has some form of neuropathy he has hypokalemia and hypomagnesemia - he did not have a preceding GI or URI to this to suggest GBS suspect ETOH neuropathy and lyte abnormality causing symptoms at this tiara IV magnesium, PO K, IV K, phenobarb protocol, thiamine and admission. Differential Diagnosis Differential Diagnoses: The differential diagnosis associated with the presentation includes ETOH withdrawal, neuropathy, GBS seems unlikely, lyte abnormality Admission/Observation Consideration of admission/observation: Escalation of care including admission/observation considered admit for lyte repletion, ETOH withdrawal Consult Healthcare Provider Management of the patient was discussed with: Hospitalist (will admit) Lab Data [facility] Lab Attestation statement: I reviewed the patient's lab results. 08/24/23 09:51 08/24/23 09:51 Labs: Lab Results 08/24/23 Range/Units 09:51 WBC 9.9 (4.8-10.8) X10*3/uL RBC 2.64 L D (4.60-5.80) X10*6/uL Hgb 11.1 L (14.0-18.0) g/dl Hct 30.4 L D (42.0-52.0) % MCV 115.2 H (80.0-98.0) fL MCH 42.0 H (27.0-33.0) pg MCHC 36.5 H (31.0-36.0) g/dl RDW 18.2 H (11.0-16.0) % Plt Count 399 D (160-400) X10*3/uL MPV 8.9 L (9.4-12.4) fL Immature Gran % (Auto) 0.8 H (0.0-0.4) % Neut % (Auto) 75.8 H (45-73) % Lymph % (Auto) 16.5 L (20-40) % [place] % (Auto) 5.9 (2-11) % Eos % (Auto) 0.8 (0-4) % Baso % (Auto) 0.2 (0-2) % Lymph # (Auto) 1.6 (1.2-4.9) X10*3/uL [place] # (Auto) 0.6 (0.1-1.2) X10*3/uL Eos # (Auto) 0.1 (0.0-0.4) X10*3/uL Baso # (Auto) 0.0 (0.0-0.2) X10*3/uL Abs Immat Gran (auto) 0.08 H (0.00-0.03) X10*3/uL Absolute Neuts (auto) 7.5 (2.0-8.3) x10*3/uL Absolute Nucleated RBC 0.050 H (0.0-0.012) X10*3/uL Nucleated RBC % (auto) 0.5 H (0.0-0.2) /100WBC Sodium 139 (135-145) mmol/L Potassium 2.8 L D (3.3-5.1) mmol/L Chloride 100 (96-108) mmol/L Carbon Dioxide 25 (22-29) mmol/L Anion Gap 17 (12-20) BUN 3 L (9-16) mg/dL Creatinine 0.63 (0.5-1.4) mg/dL Estim Creat Clear Calc 231.3 Estimated GFR > 60 Random Glucose 115 (60-115) mg/dL Calcium 6.7 L D (8.4-10.2) mg/dL Magnesium 1.5 L (1.6-2.6) mg/dL Total Bilirubin 0.5 (0.0-1.0) mg/dL Direct Bilirubin 0.3 (0.0-0.5) mg/dL AST 40 H (5-37) U/L ALT 25 (0-40) U/L Alkaline Phosphatase 171 H (39-117) U/L Total Protein 6.8 (6.5-8.0) g/dL Albumin 3.5 (3.5-5.0) g/dL Lipase 21 (8-78) U/L Ethyl Alcohol < 10 mg/dL Independent Interpretation I performed an independent interpretation of an: EKG Interpretation: Rate: 103 Rhythm: sinus tachycardia [place]: normal Normal P waves. Normal JANIE. Normal QRS complex. ST T wave : no DELANEY, inverted t wave III, qTC: 489 prior studies: no acute ischemia The study has been interpreted contemporaneously by me. . Independent Historian Clinical information obtained from an independent historian. History obtained from or confirmed by: Parent External Record Review External record reviewed: Inpatient record Critical Care Time Critical Care Time Critical Care Time: Yes Total Critical Care Time: 45 Attestation: repletion of IV K and IV magnesium, start on phenobarb protocol I attest to this time spent taking care of the patient Discharge Plan Discharge Clinical Impression: Acute hypokalemia, Hypomagnesemia, Difficulty walking Alcohol withdrawal Qualifiers: Complication of substance-induced condition: with unspecified complication Qualified Code(s): F10.939 - Alcohol use, unspecified with withdrawal, unspecified Patient Disposition: Admitted As Inpatient
[2023-08-24 12:05] LABS: Ethanol < 10 mg/dL
[2023-08-24] MEDS: PHENobarbitaL sodium 130 MG/ML IM ONCE 292 MG IM (12:22)
[2023-08-24] MEDS: Potassium Chloride Packet 20 MEQ PACKET 40 MEQ PO (12:23)
[2023-08-24] MEDS: 0.9 % Sodium Chloride 1,000 ML 999 ML IV (12:23)
[2023-08-24] MEDS: Potassium Chloride/H20 10 MEQ/100 ML PIGGYBACK 100 MEQ IV ×4 (12:37→17:00)
[2023-08-24] MEDS: Magnesium Sulfate/H2O 2 GM/50 ML PIGGYBACK IV (12:37)
[2023-08-24] MEDS: Thiamine HCL 200 MG in 0.9 % Sodium Chloride 100 ML 204 MG IV (12:37)
--- NOTE | 2023-08-24 12:48 | PHA.MEDREC ---
Pharmacy Consult ? Medication Reconciliation Pharmacy has completed the medication reconciliation.
[2023-08-24 13:26] VITALS: BP 146/82; PULSE 102; RESP 16; O2SAT 100
--- NOTE | 2023-08-24 13:48 | PM.IMHP ---
History of Present Illness Date of Service: 08/24/23 Chief Complaint: tremors, weakness A 27 years old male with PMH of Alcoholism, obestity post gastric sleeve who presents with few days of weakness, numbness and tremors. He reports drinking 1/2L of Vodka daily for a while now. over the last few days he noticed increased lower extrimities weakness with associated pain and decrease sensation with feeling unsteady on his feet. He continued to drink and reported tremors and abnormal contractions in his hands but no reported seizure. never had seizure before. last drink 08/23 night. Found to have electrolytes imbalance of magnesium and potassium. admitted for further treatment. Review of Systems Review of Systems: No fever, chills but reports weakness and legs pain No chest pain, palpitation No shortness of breath or coughing No abdominal pain, but has nausea No urinary symptoms No rash or wounds PMFSH Medical History Alcoholism Hernia Surgical History H/O gastric sleeve Social History Alcohol intake: current Patient Tobacco Use Status: Never used Tobacco Advance Directives: No Meds Allergies Allergy/AdvReac Type Severity Reaction Status Date / Time amoxicillin Allergy Unknown hives Verified 08/24/23 09:26 Penicillins [PENICILLINS] Allergy Unknown ANAPHYLAXIS Verified 08/24/23 09:26 red dye [RED DYE] Allergy Unknown UNKNOWN Verified 08/24/23 09:26 shrimp [SHRIMP] Allergy Unknown UNKNOWN Verified 08/24/23 09:26 Sulfa (Sulfonamide Allergy Unknown hives Verified 08/24/23 09:26 Antibiotics) sulfamethoxazole Allergy Unknown UNKNOWN Verified 08/24/23 09:26 [From BACTRIM] trimethoprim [From BACTRIM] Allergy Unknown UNKNOWN Verified 08/24/23 09:26 Biaxin Allergy Unknown hives Uncoded 02/03/20 00:00 SEAFOOD Allergy Unknown UNKNOWN Uncoded 05/12/20 16:18 Active Medications: Current Medications Potassium Chloride (Potassium Chloride/H20) 10 meq in 100 mls @ 100 mls/hr IV Q1H MICHAEL Stop: 08/24/23 15:44 Last Admin: 08/24/23 12:37 Dose: 100 mls/hr Pharmacy Consult (Consult Rx Etoh Phenob Im/Po) 1 each MISCELLANE ONCE PRN; Protocol PRN Reason: Consult order Phenobarbital (Phenobarbital 15 Mg Tablet) 45 mg PO BID [facility]; Protocol Stop: 08/26/23 21:01 Phenobarbital (Phenobarbital 30 Mg Tablet) 30 mg PO BID MICHAEL; Protocol Stop: 08/28/23 21:01 Phenobarbital (Phenobarbital 30 Mg Tablet) 30 mg PO DAILY [facility]; Protocol Stop: 08/30/23 09:01 Phenobarbital Sodium (Phenobarbital Sodium 65 Mg/Ml Vial Q3hx2) 219 mg IM Q3H MICHAEL; Protocol Stop: 08/24/23 18:01 Home Medications Medication Instructions Recorded Confirmed Last Taken Type magnesium oxide 400 mg (241.3 mg 400 mg PO DAILY 08/24/23 08/24/23 1 Week Ago History magnesium) tablet ~08/17/23 Physical Exam Vital Signs and Narrative: Vital Signs: Last Vital Signs Temp 96.7 F L 08/24/23 09:23 Pulse 102 H 08/24/23 13:26 Resp 16 08/24/23 13:26 BP 146/82 H 08/24/23 13:26 Pulse Ox 100 08/24/23 13:26 O2 Del Method Room Air 08/24/23 13:26 BMI result Body Mass Index 39.5 Const: Other: Constitutional : Awake, interactive, obese, not in distress Neck : Normal inspection, Supple Cardiovascular : RRR, no JVP, no lower extremity edema Respiratory : good bilateral air entry, no crackles, wheezes or rhonchi Gastrointestinal: soft, lax, Normal bowel sounds, Non tender Skin : Warm, Dry Neurological : Alert & oriented x3, No focal deficit , painful to touch lower extrimities but normal sensation , tremors Results Labs 08/24/23 09:51 08/24/23 09:51 Labs: Laboratory Results - last 24 hr 08/24/23 09:51 MCV 115.2 H MCH 42.0 H MCHC 36.5 H RDW 18.2 H Plt Count 399 D MPV 8.9 L Immature Gran % (Auto) 0.8 H Neut % (Auto) 75.8 H Lymph % (Auto) 16.5 L [place] % (Auto) 5.9 Eos % (Auto) 0.8 Baso % (Auto) 0.2 Lymph # (Auto) 1.6 [place] # (Auto) 0.6 Eos # (Auto) 0.1 Baso # (Auto) 0.0 Abs Immat Gran (auto) 0.08 H Absolute Neuts (auto) 7.5 Absolute Nucleated RBC 0.050 H Nucleated RBC % (auto) 0.5 H Anion Gap 17 Estim Creat Clear Calc 231.3 Estimated GFR > 60 Random Glucose 115 Calcium 6.7 L D Magnesium 1.5 L Total Bilirubin 0.5 Direct Bilirubin 0.3 AST 40 H ALT 25 Alkaline Phosphatase 171 H Total Protein 6.8 Albumin 3.5 Lipase 21 Ethyl Alcohol < 10 Assessment and Plan (1) Difficulty walking: Status: Acute (2) Alcohol withdrawal: Qualifiers: Complication of substance-induced condition: with unspecified complication Qualified Code(s): F10.939 - Alcohol use, unspecified with withdrawal, unspecified Status: Acute (3) Hypomagnesemia: Status: Acute (4) Acute hypokalemia: Status: Acute Plan A 27 years old male with PMH of Alcoholism, obestity post gastric sleeve who presents with few days of weakness, numbness and tremors. He reports drinking 1/2L of Vodka daily for a while now. Alcohol abuse and withdrawal CIWA protocol Phenobarbital therapy Folic, Thiamine and [facility] addiction team consult IVF Neuropathy in LE could be related to alcoholism\hx gastric sleeve check B12, folate Hypokalemia, acute replacement given follow BMP Hypomagnesemia replacement given Obesity advised weight loss DVT PPx Lovenox The patient will likely need 2 night of inpatient stay for treatment of alcohol withdrawal and correcting electrolytes abnomalities Quality Stroke Does the patient have a stroke diagnosis?: No VTE Prior VTE?: No VTE Risk Level:: Medical - moderate - high VTE Device Contraindication: Treatment Not Indicated VTE Drug Contraindication: N/A - Med Ordered
[2023-08-24] MEDS: Enoxaparin Sodium 40 MG/0.4 ML SYRINGE SUBCUT (14:40)
[2023-08-24] MEDS: Thiamine HCL 100 MG TABLET PO (14:41)
[2023-08-24] MEDS: Folic Acid 1 MG TABLET PO (14:41)
[2023-08-24] MEDS: Multivitamin TABLET 1 TAB PO (14:41)
--- NOTE | 2023-08-24 15:11 | PC.NURSE ---
22g iv inserted L hand. all meds given as documented. he reports chronic leg pain, denies any new pain. vss. pt's father is at his bedside
[2023-08-24 15:27] LABS: Appearance Urine Clear; Color Urine Yellow; Glucose Urine UA Negative (Negative); Leukocyte Esterase Urine Trace (Negative); Nitrite Urine Negative (Negative); PH 6.5 (5.0-9.0); Specific Gravity - Urine 1.015 (1.005-1.025); UMIC TRIGGER UACC YES; Urine Blood Negative (Negative); Urine Ketones Negative (Negative); Urine Protein Negative (Neg-Trace)
[2023-08-24 15:29] LABS: Bacteria Urine None Seen (None Seen); RBC Urine 0-2 /HPF (0-2); Squamous Epithelial Cell Urine 0-2 /HPF (0-2); WBC Urine 0-5 /HPF (0-5)
[2023-08-24] MEDS: PHENobarbitaL sodium 65 MG/ML VIAL Q3Hx2 219 MG IM ×2 (15:32→19:19)
[2023-08-24 15:36] LABS: Folate < 2.2 ng/mL (> or = 4.0); Vitamin B12 378 pg/mL (200-900)
[2023-08-24] MEDS: Lactated Ringers 1,000 ML 100 ML IVCONT ×2 (15:41→23:27)
[2023-08-24 15:50] VITALS: BP 125/78; PULSE 107; RESP 23; O2SAT 100
[2023-08-24 19:45] VITALS: BP 131/80; PULSE 99; RESP 14; TEMP 36; O2SAT 98
[2023-08-24 23:00] VITALS: BP 112/56; PULSE 99; RESP 16; TEMP 36.1; O2SAT 97
[2023-08-24] MEDS: Acetaminophen 325 MG TABLET 650 MG PO (23:26)
[2023-08-25 07:06] VITALS: BP 101/51; PULSE 99; RESP 18; TEMP 36.3; O2SAT 95
[2023-08-25] MEDS: Acetaminophen 325 MG TABLET 650 MG PO ×2 (07:36→21:56)
[2023-08-25] MEDS: Folic Acid 1 MG TABLET PO (07:36)
[2023-08-25] MEDS: Multivitamin TABLET 1 TAB PO (07:37)
[2023-08-25] MEDS: Magnesium Oxide 400 MG TABLET PO (07:37)
[2023-08-25] MEDS: PHENobarbitaL 15 MG TABLET 45 MG PO ×2 (07:37→21:57)
[2023-08-25] MEDS: Thiamine HCL 100 MG TABLET PO (07:43)
[2023-08-25] MEDS: Lactated Ringers 1,000 ML 100 ML IVCONT ×2 (07:44→17:25)
[2023-08-25 09:22] LABS: Anion Gap 12 (12-20); Blood Urea Nitrogen 3 mg/dL (9-16); Calcium 5.9 mg/dL (8.4-10.2); Carbon Dioxide 26 mmol/L (22-29); Chloride 104 mmol/L (96-108); Creatinine Clr Calc Pharmacy 280.2; Estimated Glomerular Filt Rate > 60; Glucose Random 82 mg/dL (60-115); Potassium 3.2 mmol/L (3.3-5.1); Sodium 139 mmol/L (135-145)
[2023-08-25 10:19] LABS: Albumin Level 2.7 g/dL (3.5-5.0)
--- NOTE | 2023-08-25 10:21 | P.PNIM_ITS ---
Subjective Subjective Date of Service: 08/25/23 Interval History: Seen and evaluated this morning reporting left foot pain still having mild tremors scoring lower on CIWA no overnight events Review of Systems Review of Systems: Yes all other systems are reviewed and are negative Physical Exam 2 Vital Signs: Vital Signs: Last Vital Signs Temp 97.3 F 08/25/23 07:06 Pulse 99 08/25/23 07:06 Resp 18 08/25/23 07:06 BP 101/51 L 08/25/23 07:06 Pulse Ox 95 08/25/23 07:06 O2 Del Method Room Air 08/25/23 07:06 BMI result Body Mass Index 39.5 Const: Other: Constitutional : Awake, interactive, obese, not in distress Neck : Normal inspection, Supple Cardiovascular : RRR, no JVP, no lower extremity edema Respiratory : good bilateral air entry, no crackles, wheezes or rhonchi Gastrointestinal: soft, lax, Normal bowel sounds, Non tender Skin : Warm, Dry Skeletal: mild swelling over the Lt big toe base Neurological : Alert & oriented x3, No focal deficit ,less painful to touch lower extrimities but normal sensation ,less tremors Objective Data Active Medications Acetaminophen (Acetaminophen 325 Mg Tablet) 650 mg PO Q6H PRN PRN Reason: Pain, Mild (Pain Scale 1-3) Last Admin: 08/25/23 07:36 Dose: 650 mg Documented By: SPRING Enoxaparin Sodium (Enoxaparin Sodium 40 Mg/0.4 Ml Syringe) 40 mg SUBCUT Q24H [facility] Last Admin: 08/24/23 14:40 Dose: 40 mg Documented By: NIRU Folic Acid (Folic Acid 1 Mg Tablet) 1 mg PO DAILY [facility] Last Admin: 08/25/23 07:36 Dose: 1 mg Documented By: SPRING Lactated Ringer's (Lr) 1,000 mls @ 100 mls/hr IVCONT .Q10H [facility] Last Admin: 08/25/23 07:44 Dose: 100 mls/hr Documented By: SPRING Calcium Gluconate (Calcium Gluconate) 2 gm in 100 mls @ 50 mls/hr IV ONCE ONE Stop: 08/25/23 11:34 Ketorolac Tromethamine (Ketorolac Tromethamine 15 Mg/Ml Vial) 15 mg IVPUSH Q6H PRN PRN Reason: Pain, Moderate(Pain Scale 4-6) Magnesium Oxide (Magnesium Oxide 400 Mg Tablet) 400 mg PO DAILY [facility] Last Admin: 08/25/23 07:37 Dose: 400 mg Documented By: SPRING Multivitamins/Vitamin C (Multivitamin Tablet) 1 tab PO DAILY [facility] Last Admin: 08/25/23 07:37 Dose: 1 tab Documented By: SPRING Pharmacy Consult (Consult Rx Etoh Phenob Im/Po) 1 each MISCELLANE ONCE PRN; Protocol PRN Reason: Consult order Phenobarbital (Phenobarbital 15 Mg Tablet) 45 mg PO BID [facility]; Protocol Stop: 08/26/23 21:01 Last Admin: 08/25/23 07:37 Dose: 45 mg Documented By: SPRING Phenobarbital (Phenobarbital 30 Mg Tablet) 30 mg PO BID [facility]; Protocol Stop: 08/28/23 21:01 Phenobarbital (Phenobarbital 30 Mg Tablet) 30 mg PO DAILY [facility]; Protocol Stop: 08/30/23 09:01 Sodium Chloride (0.9 % Sodium Chloride Flush 3 Ml Syringe) 3 ml IVFLUSH QSHIFT [facility] Last Admin: 08/25/23 07:37 Dose: Not Given Documented By: SPRING Non-Admin Reason: IV Running Thiamine HCl (Thiamine Hcl 100 Mg Tablet) 100 mg PO DAILY [facility] Last Admin: 08/25/23 07:43 Dose: 100 mg Documented By: SPRING Labs 08/24/23 09:51 08/25/23 07:50 Labs: Laboratory Results - last 24 hr 08/24/23 08/24/23 08/24/23 09:51 14:31 14:52 Hold Purple Top Anion Gap Estim Creat Clear Calc Estimated GFR Random Glucose Calcium Albumin Vitamin B12 378 Folate < 2.2 L Urine Color Yellow Urine Appearance Clear Urine pH 6.5 Ur Specific Delta 1.015 Urine Protein Negative Urine Glucose (UA) Negative Urine Ketones Negative Urine Blood Negative Urine Nitrite Negative Ur Leukocyte Esterase Trace H Urine RBC 0-2 Urine WBC 0-5 Ur Squamous Epith Cells 0-2 Urine Bacteria None Seen Hyaline Casts 3-5 Ethyl Alcohol < 10 08/25/23 07:50 Hold Purple Top SEE NOTE Anion Gap 12 Estim Creat Clear Calc 280.2 Estimated GFR > 60 Random Glucose 82 Calcium 5.9 L* D Albumin 2.7 L Vitamin B12 Folate Urine Color Urine Appearance Urine pH Ur Specific Delta Urine Protein Urine Glucose (UA) Urine Ketones Urine Blood Urine Nitrite Ur Leukocyte Esterase Urine RBC Urine WBC Ur Squamous Epith Cells Urine Bacteria Hyaline Casts Ethyl Alcohol Assessment and Plan (1) Alcohol withdrawal: Status: Acute (2) Hypomagnesemia: Status: Acute (3) Acute hypokalemia: Status: Acute (4) Folate deficiency: Status: Acute (5) Hypocalcemia: Status: Acute Plan A 27 years old male with PMH of Alcoholism, obestity post gastric sleeve who presents with few days of weakness, numbness and tremors. He reports drinking 1/2L of Vodka daily for a while now. Alcohol abuse and withdrawal CIWA protocol Phenobarbital therapy Folic, Thiamine and MVT addiction team consult Continue IVF Neuropathy in LE could be related to alcoholism\hx gastric sleeve very low Folate check B12, folate Left foot pain XR big Toe pain meds Acute Hypocalcemia Correct Calcium of 6.7 to give IV and PO supplement check vit D and PTH Hypokalemia, acute replacement given follow BMP Hypomagnesemia replacement given Obesity advised weight loss DVT PPx Lovenox The patient will likely need overnight of inpatient stay for treatment of alcohol withdrawal and correcting electrolytes abnomalities Quality Stroke Does the patient have a stroke diagnosis?: No VTE Prior VTE?: No VTE Risk Level:: Medical - moderate - high VTE Device Contraindication: Treatment Not Indicated VTE Drug Contraindication: N/A - Med Ordered
[2023-08-25] MEDS: Ketorolac Tromethamine 30 MG/ML VIAL IVPUSH (10:30)
[2023-08-25 10:57] VITALS: BP 115/54; PULSE 106; RESP 18; TEMP 37.6; O2SAT 96
[2023-08-25] MEDS: Potassium Chloride Packet 20 MEQ PACKET 40 MEQ PO (10:58)
[2023-08-25] MEDS: Calcium Gluconate/NaCl,Iso-Osm 2 GM/100 ML PLAST..BAG IV (10:58)
[2023-08-25 11:10] LABS: Magnesium 1.6 mg/dL (1.6-2.6)
[2023-08-25 11:16] LABS: Vitamin D 25-OH Total 4.6 ng/mL (>30)
--- NOTE | 2023-08-25 12:03 | MHC.CM.PN ---
PT REPORTS HE LIVES WITH HIS FATHER AND GRANDMOTHER AND IS INDEPENDENT WITH CARE HE HAS NO SERVICES AND NO DME HE DECLINES TO COMPLETE A HCP HE REPORTS HIS PCP IS ROSALINDA BURGOS DCP: HOME NO SERVICES VIA FAMILY TRANSPORT
[2023-08-25 12:11] LABS: Parathyroid Hormone Intact 317.3 pg/mL (8.7-77.1)
--- NOTE | 2023-08-25 12:14 | MHC.RECOVRN ---
Met with pt in 350 after consult placed to Addiction Medicine for alcohol use. Pt had presented to the ED reporting difficulty with ambulation x 1 week due to pain and knees giving out. Pt also reported multiple falls. Upon evaluation, pt admitted for treatment of alcohol withdrawal and electrolyte abnormalities. Pt sitting in bed, awake, alert, easily engages in conversation. Appears comfortable, denies withdrawal symptoms. Pt reports this is first hospitalization due to alcohol use. Pt reports currently drinking about 1/2 of a 1.75 L bottle of vodka daily, using sweet tea as a chaser. Pt reports prior to COVID being a social drinker, however, during COVID alcohol use increased to 1.75 L vodka daily. Pt has been able to reduce this amount over time and goal is to continue reducing, perhaps abstinence. Pt reports hx withdrawal including tremors and hallucinations, denies hx withdrawal seizures. Pt is aware that alcohol can not be stopped abruptly due to hx mother experiencing withdrawal seizure. Pt has not received tx for AUD in the past. Pt reports family hx AUD (mother and uncle). Pt reports he is currently unemployed. Discussed importance of taking vitamins to prevent Wernicke-Korsakoff syndrome. Educated pt on recovery resources and supports, including inpatient and outpatient options. Pt reports he may be interested in IOP/PHP since he is not currently working and has the time to focus on recovery. Pt would like to think about options, does not want referrals at this time. Pt provided with written resources as well as t/w contact information if needed.
[2023-08-25] MEDS: Enoxaparin Sodium 40 MG/0.4 ML SYRINGE SUBCUT (13:31)
[2023-08-25 15:14] VITALS: BP 129/93; PULSE 113; RESP 20; TEMP 36.7; O2SAT 98
[2023-08-25] MEDS: Ketorolac Tromethamine 15 MG/ML VIAL IVPUSH (17:21)
[2023-08-25 19:19] VITALS: BP 118/55; PULSE 89; RESP 18; TEMP 37.1; O2SAT 97
[2023-08-26] VITALS: BP 128/60; PULSE 97; RESP 16; TEMP 36.6; O2SAT 96
[2023-08-26] MEDS: Ketorolac Tromethamine 15 MG/ML VIAL IVPUSH (00:38)
[2023-08-26] MEDS: Lactated Ringers 1,000 ML 100 ML IVCONT (04:48)
[2023-08-26 06:40] LABS: Anion Gap 11 (12-20); Blood Urea Nitrogen 7 mg/dL (9-16); Calcium 6.5 mg/dL (8.4-10.2); Carbon Dioxide 26 mmol/L (22-29); Chloride 107 mmol/L (96-108); Creatinine Clr Calc Pharmacy 274.9; Estimated Glomerular Filt Rate > 60; Glucose Random 73 mg/dL (60-115); Potassium 4.2 mmol/L (3.3-5.1); Sodium 140 mmol/L (135-145)
--- NOTE | 2023-08-26 07:01 | PC.NURSE ---
refusing high fall risk interventions.
[2023-08-26 07:42] VITALS: BP 108/62; PULSE 91; RESP 16; TEMP 36.6; O2SAT 95
[2023-08-26] MEDS: PHENobarbitaL 15 MG TABLET 45 MG PO (08:06)
[2023-08-26] MEDS: Folic Acid 1 MG TABLET PO (08:07)
[2023-08-26] MEDS: Cholecalciferol (Vitamin D3) 25 MCG TABLET 50 MCG PO (08:07)
[2023-08-26] MEDS: Multivitamin TABLET 1 TAB PO (08:07)
[2023-08-26] MEDS: Thiamine HCL 100 MG TABLET PO (08:07)
[2023-08-26] MEDS: Magnesium Oxide 400 MG TABLET PO (08:07)
[2023-08-26 09:39] LABS: Anion Gap 14 (12-20); Blood Urea Nitrogen 7 mg/dL (9-16); Calcium 6.9 mg/dL (8.4-10.2); Carbon Dioxide 25 mmol/L (22-29); Chloride 107 mmol/L (96-108); Creatinine Clr Calc Pharmacy 260.2; Estimated Glomerular Filt Rate > 60; Glucose Random 95 mg/dL (60-115); Magnesium 1.8 mg/dL (1.6-2.6); Phosphorus 2.6 mg/dL (2.7-4.5); Sodium 142 mmol/L (135-145)
[2023-08-26 12:20] LABS: Albumin Level 3.2 g/dL (3.5-5.0)
[2023-08-26] MEDS: Sodium,Potassium Phosphates POWD.PACK 1 PACKET PO (12:50)
[2023-08-26] MEDS: Calcium Gluconate/NaCl,Iso-Osm 2 GM/100 ML PLAST..BAG IV (12:50)
[2023-08-26] MEDS: Enoxaparin Sodium 40 MG/0.4 ML SYRINGE SUBCUT (12:54)
--- NOTE | 2023-08-26 14:20 | PM.EVENT ---
Event Note Date of Service: 08/27/23 Event Note: 27 yr old man , s/p Gastric sleeve, with severe hypokalemia and hypocalcemia and normal renal function Severe Hypocalcemia due to Vit D Deficiency Elevated PTH due to hypocalcemia( appropriate response) Suggest Replace Calcium Replace K REplace Vit D aggressively Repeat PTH in 1 week Full consult to follow Time Spent With Patient Time: Total time managing care of this patient today ____ minutes.
[2023-08-26] MEDS: Ibuprofen 400 MG TABLET PO (15:13)
[2023-08-26 15:19] VITALS: BP 154/67; PULSE 76; RESP 18; TEMP 37; O2SAT 99
--- NOTE | 2023-08-26 15:55 | PM.DS ---
DS: Providers Provider Date of Service: 08/26/23 Date of admission: 08/24/23 13:43 Primary care physician: [facility] Consults: 08/24/23 14:13 Addiction Medicine Routine Consulting Provider: Addiction Aide Reason for consultation: Alcoholism for eval and outpatient follow up 08/26/23 07:46 Consult to Nephrology Routine Consulting Provider: [facility] Reason for consultation: 2ndry Hyperparathyroidism, Vit D Def for establish of care and advice DS: Diagnosis Discharge Diagnosis (1) Alcohol withdrawal: Status: Acute (2) Hypomagnesemia: Status: Acute (3) Acute hypokalemia: Status: Acute (4) Folate deficiency: Status: Acute (5) Hypocalcemia: Status: Acute DS: Summary Hospital Course Hospital Course: Admission note HPI A 27 years old male with PMH of Alcoholism, obestity post gastric sleeve who presents with few days of weakness, numbness and tremors. He reports drinking 1/2L of Vodka daily for a while now. over the last few days he noticed increased lower extrimities weakness with associated pain and decrease sensation with feeling unsteady on his feet. He continued to drink and reported tremors and abnormal contractions in his hands but no reported seizure. never had seizure before. last drink 08/23 night. Found to have electrolytes imbalance of magnesium and potassium.admitted for further treatment. Hospital course # Alcohol abuse and withdrawal monitored on CIWA protocol and received Phenobarbital therapy along with Folic, Thiamine and MVT. He was seen by addiction team who provided outpatient resources. # Neuropathy in LE likely related to alcoholism, hx gastric sleeve and deficiencies. Found to have very low folate. started on replacement for Folate and Thiamine. #Left foot pain XR big Toe did not show any fracture, pain meds # Acute Hypocalcemia 2/2 SEcondary hyperparathyroidism from Vit D Defciency. Correct Calcium of 7.5 at day of discharge. received IV and PO supplement as Low Vit D and High PTH. likely malabsorption related to gastric sleeve history. # Hypokalemia, Hypomagnesemia acute replacement given with good response. related to alcohol abuse. Vitamin D and Calcium replacement Thiamine and Folic acid replacement Continue Magnesium supplement We Advise you complete abstinence from Alcohol Follow with PCP/services account manager dr Quiroz as outpatient Time Attestation Discharge coordination time: Greater than 30 minutes Quality: Safe Use of Opioids Does Pt have an Active Cancer Diagnosis on the Problem List?: No Quality: Stroke Does the patient have a stroke diagnosis?: No Physical Exam Vital Signs: Vital Signs: Last Vital Signs Temp 98.6 F 08/26/23 15:19 Pulse 76 08/26/23 15:19 Resp 18 08/26/23 15:19 BP 154/67 H 08/26/23 15:19 Pulse Ox 99 08/26/23 15:19 O2 Del Method Room Air 08/26/23 15:19 BMI result Body Mass Index 39.5 Const: Other: Constitutional : Awake, interactive, obese, not in distress Neck : Normal inspection, Supple Cardiovascular : RRR, no JVP, no lower extremity edema Respiratory : good bilateral air entry, no crackles, wheezes or rhonchi Gastrointestinal: soft, lax, Normal bowel sounds, Non tender Skin : Warm, Dry Skeletal: decreased swelling over the Lt big toe base Neurological : Alert & oriented x3, No focal deficit , less sensitive skin in lower extrimities but normal sensation no tremors DS: Data Data Completed and Pending Labs on day of discharge: Laboratory Results - last 24 hr 08/26/23 08/26/23 05:56 08:50 Hold Purple Top SEE NOTE Sodium 140 142 Potassium 4.2 D 4.0 Chloride 107 107 Carbon Dioxide 26 25 Anion Gap 11 L 14 BUN 7 L 7 L Creatinine 0.53 0.56 Estim Creat Clear Calc 274.9 260.2 Estimated GFR > 60 > 60 Random Glucose 73 95 Calcium 6.5 L D 6.9 L D Phosphorus 2.6 L Magnesium 1.8 Albumin 3.2 L Imaging XR Toe: Radiologist's impression: ITS Impressions Toe X-Ray 08/25/23 10:10 IMPRESSION: 1. No acute fracture or dislocation. 2. Mild first metatarsophalangeal degenerative arthritis. Discharge Plan Discharge Anticipated Discharge Date/Time: 08/26/23 11:56 Patient Disposition: Home, Self-Care Discharge Diagnosis: Alcohol abuse and withdrawal Electrolytes imbalance Folic acid deficiency Calcium and Vit D deficiency Referrals: [facility] [Primary Care Provider] - 1 Week Discharge Medications: New folic acid 1 mg Tablet 1 mg PO DAILY Qty: 90 0RF cholecalciferol (vitamin D3) 25 mcg (1,000 unit) Tablet 50 mcg PO DAILY Qty: 30 1RF thiamine mononitrate (vit B1) 100 mg Tablet 100 mg PO DAILY Qty: 90 0RF calcium carbonate [Oyster Shell Calcium 500] 500 mg calcium (1,250 mg) Tablet 1,000 mg PO BID Qty: 60 1RF Continued magnesium oxide 400 mg (241.3 mg magnesium) Tablet 400 mg PO DAILY Discharge Orders: Discharge Order (Routine); Ordered 08/26/23 Ordered By: Tammy Rasmussen Diet: Advance to usual diet Activity on Discharge: As tolerated Stand Alone Forms: Patient Portal Discharge page Care Plan Goals: Read below Health Concerns: Read below Plan of Treatment: Read below Assessment: You were admitted to the hospital for evaluation of weakness, numbness and tremors with symptoms suggestive of Alcohol withdrawal. blood work was consistent with low levels of Potassium, Magnesium, Calcium, PHosphorus, Folic acid and Vitamin D which all were replaced. Parathyroid hormone was elevated as a result of low Vitamin D. Vitamin D and Calcium replacement Thiamine and Folic acid replacement Continue Magnesium supplement We Advise you complete abstinence from Alcohol Follow with PCP/services account manager dr Quiroz as outpatient
--- NOTE | 2023-08-26 16:05 | MHC.CM.PN ---
pt dcd home no services
== END 2023-08-26 16:30 | disposition home or self-care (01) | DRG 48 ==
LOC: HO.ED 12:11 → HO.EDOVER 13:50 → HO.S3 17:36
PROVIDERS: Admitting Provider Student in an Organized Health Care Education/Training Program; Emergency Provider Emergency Medicine; Visit Provider Student in an Organized Health Care Education/Training Program
DX: G62.1 Alcoholic polyneuropathy (principal); K91.2 Postsurgical malabsorption, not elsewhere classified; E83.42 Hypomagnesemia; E53.8 Deficiency of other specified B group vitamins; E66.9 Obesity, unspecified; M79.672 Pain in left foot; F10.239 Alcohol dependence with withdrawal, unspecified; E87.6 Hypokalemia; E83.51 Hypocalcemia; Z68.39 Body mass index [BMI] 39.0-39.9, adult; Z98.84 Bariatric surgery status; Z79.899 Other long term (current) drug therapy
CPT/HCPCS: 36415; 73660; 80048; 80076; 80307; 81001; 82040; 82306; 82607; 82746; 83690; 83735; 83970; 84100; 85025; 93005; 97162; 99285; J0613; J1650; J1885; J2560; J3411; J3475; J3480; J7120

== ENCOUNTER → 2023-08-24 11:32 | Outpatient (BNV) | payer MEDICAID, SELFPAY | PROVIDERS: Admitting Provider Student in an Organized Health Care Education/Training Program; Emergency Provider Emergency Medicine; Visit Provider Internal Medicine | DX: R00.0 Tachycardia, unspecified (principal); R06.02 Shortness of breath | CPT/HCPCS: 93010 ==

== ENCOUNTER → 2023-08-24 13:43 | Outpatient (BNV) | payer MEDICAID, SELFPAY | PROVIDERS: Admitting Provider Student in an Organized Health Care Education/Training Program; Emergency Provider Emergency Medicine; Visit Provider Student in an Organized Health Care Education/Training Program | DX: F10.939 Alcohol use, unspecified with withdrawal, unspecified (principal); E83.42 Hypomagnesemia; E87.6 Hypokalemia; E53.8 Deficiency of other specified B group vitamins; E83.51 Hypocalcemia | CPT/HCPCS: 99223; 99233; 99239 ==

== ENCOUNTER 2023-09-09 15:49 | Outpatient (AMB) | payer MEDICAID, SELFPAY ==
--- NOTE | 2023-09-09 15:50 | HO.NEPHOV ---
HPI HPI Comments History of Present Illness Details 27 years old male with a history of Alcoholism, obestity post gastric sleeve who presented to ER with few days of weakness, numbness and tremors on August 24. He reported drinking 1/2L of Vodka daily for a while . Prior to the visit he noticed increased lower extrimities weakness with associated pain and decrease sensation with feeling unsteady on his feet. He continued to drink and reported tremors and abnormal contractions in his hands but no reported seizure. never had seizure before. last drink 08/23 night. At the time of admission was found to have severe hypocalcemia and hypokalemia. He was given appropriate supplementation and discharged home. He is here for further follow-up. He has not consumed alcohol since his discharge [facility] Medical History Alcoholism Hernia Surgical History H/O gastric sleeve Social History Household Members: Family Housing: House Do you presently have visiting nurse or other home services: No Alcohol intake: current Comment: refusing fall risk intervention. Patient Tobacco Use Status: Never used Tobacco Substance Use Type: Marijuana service: No Vital Signs 09/09/23 15:52 Height 5 ft 10 in Weight 333 lb 4 oz BMI 47.8 BP 132/82 Blood Pressure Location Lt brachial Position Sitting Pulse 110 H Pulse Source Pulse Oximeter Pulse Oximetry (%) 98 Oxygen Delivery Method Room Air Physical Exam Vital Signs: Last Vital Signs Pulse 110 H 09/09/23 15:52 BP 132/82 09/09/23 15:52 Pulse Ox 98 09/09/23 15:52 Oxygen Delivery Method Room Air 09/09/23 15:52 BMI result Body Mass Index 47.8 Const Other: Uses a cane to walk General: comfortable Nutritional Appearance: obese Orientation/consciousness: patient oriented x3 HEENT Head: No normal to inspection Mouth: moist mucous membranes Neck Neck: Yes supple and Yes no JVD Resp Auscultation: clear to auscultation bilaterally, no rales and rub present Cardio Jugular venous distension: no JVD Palpation: no palpable S3 and no palpable S4 Heart sounds: no rubs GI Palpation (GI): Soft to palpation and nontender Percussion: No Fluid wave present General: Yes no CVA tenderness Back/Spine/Pelvis Back: no CVA tenderness Skin General skin exam: no rashes or lesions noted Neuro General: patient oriented x3 Extrem General: Yes no pedal edema and No clubbing Assessment & Plan Assessment & Plan (1) Hypocalcemia: Code(s): E83.51 - Hypocalcemia (2) Hypomagnesemia: Code(s): E83.42 - Hypomagnesemia (3) Anemia: Code(s): D64.9 - Anemia, unspecified (4) Obesity: Code(s): E66.9 - Obesity, unspecified Plan . 27-year-old man with obesity status post gastric sleeve surgery and history of heavy alcohol abuse had an episode of severe hypocalcemia and hypomagnesemia. At present he has stopped drinking alcohol. With hypocalcemia he had significantly elevated intact PTH of 317 2 weeks ago. At this point I would recheck the serum calcium intake PTH and vitamin-D levels. Continue with calcium supplementation along with vitamin-D and titrate dose accordingly. Encouraged him to continue avoiding alcohol. He has microcytic anemia most likely related to alcohol use. Follow hemoglobin and continue with folic acid and vitamin B1 for now. Orders: Orders Blood Urea Nitrogen 6 Weeks E83.42 - Hypomagnesemia Creatinine 6 Weeks E83.42 - Hypomagnesemia Uric Acid 6 Weeks E83.42 - Hypomagnesemia Parathyroid Hormone Intact 6 Weeks E83.42 - Hypomagnesemia Osmolality Urine 6 Weeks E83.42 - Hypomagnesemia UA and rflx microscopic 6 Weeks E83.42 - Hypomagnesemia Magnesium 6 Weeks E83.42 - Hypomagnesemia Vitamin D 25-OH (D2 and D3) 6 Weeks E83.42 - Hypomagnesemia Electrolytes 6 Weeks E83.42 - Hypomagnesemia Calcium 6 Weeks E83.42 - Hypomagnesemia Phosphorus 6 Weeks E83.42 - Hypomagnesemia Coding Level of Care Code New Pt Level 5 (12810) Diagnoses Hypocalcemia E83.51 Hypomagnesemia E83.42 Anemia D64.9 Obesity E66.9 Results Reviewed Results Reviewed: Repeat labs were done in [facility] and results are pending Nephrology Results: Hgb 11.1 g/dl (14.0-18.0) L 08/24/23 WBC 9.9 X10*3/uL (4.8-10.8) 08/24/23 Plt Count 399 X10*3/uL (160-400) 08/24/23 Sodium 142 mmol/L (135-145) 08/26/23 Potassium 4.0 mmol/L (3.3-5.1) 08/26/23 Chloride 107 mmol/L (96-108) 08/26/23 Carbon Dioxide 25 mmol/L (22-29) 08/26/23 BUN 7 mg/dL (9-16) L 08/26/23 Creatinine 0.56 mg/dL (0.5-1.4) 08/26/23 Calcium 6.9 mg/dL (8.4-10.2) L 08/26/23 Phosphorus 2.6 mg/dL (2.7-4.5) L 08/26/23 PTH Intact 317.3 pg/mL (8.7-77.1) H 08/25/23 Urine Protein Negative mg/dL (Neg-Trace) 08/24/23
[2023-09-09 15:52] VITALS: BP 132/82; PULSE 110; O2SAT 98; BMI 47.8
== END 2023-09-09 16:06 | disposition home or self-care (01) ==
PROVIDERS: PCP Nurse Practitioner Family; Referring Provider Nurse Practitioner Family; Visit Provider Internal Medicine Hypertension Specialist
DX: E83.51 Hypocalcemia (principal); E83.42 Hypomagnesemia; E66.09 Other obesity due to excess calories; Z68.42 Body mass index [BMI] 45.0-49.9, adult; D64.9 Anemia, unspecified; Z98.84 Bariatric surgery status; F10.11 Alcohol abuse, in remission
CPT/HCPCS: 99214

== ENCOUNTER → 2023-09-09 15:49 | Outpatient (BNVA) | payer MEDICAID, SELFPAY | PROVIDERS: PCP Nurse Practitioner Family; Visit Provider Internal Medicine Hypertension Specialist | DX: E83.51 Hypocalcemia (principal); E83.42 Hypomagnesemia; D64.9 Anemia, unspecified; E66.9 Obesity, unspecified; Z68.42 Body mass index [BMI] 45.0-49.9, adult | CPT/HCPCS: 99212 ==

== ENCOUNTER 2024-05-31 15:30 | Inpatient (IN) | payer MEDICAID, SELFPAY ==
[2024-05-31] VITALS (9 sets, daily range): BP systolic 111–140; BP diastolic 66–114; PULSE 94–118; RESP 19–20; TEMP 37.1–38.7; O2SAT 98; BMI 40.2
--- NOTE | ~2024-05-31 | CT_ITS ---
EXAMINATION: CT MAXILLOFACIAL WITHOUT CONTRAST CLINICAL INFORMATION: Dental abscess. Sepsis. COMPARISON: None available. TECHNIQUE: Multidetector helical imaging was performed in the axial plane with generation of coronal and sagittal reformatted images. This CT examination was performed using dose optimization techniques as appropriate, variously including the following: *Automated exposure control *Adjustment of mA and/or kV according to patient size (this includes techniques or standardized protocols for targeted exams where dose is matched to indication/reason for exam; i.e. extremities or head) *Use of iterative reconstruction technique DLP: 642 mGy-cm FINDINGS: FRONTAL SINUSES AND DRAINAGE PATHWAYS: The frontal sinuses are clear. The frontoethmoidal recesses are patent. MAXILLARY SINUSES AND DRAINAGE PATHWAYS: Minimal mucosal thickening of the maxillary sinuses. The maxillary ostia and infundibula are patent. ETHMOID SINUSES: Mild mucosal thickening of the ethmoid air cells. The ethmoid roofs appear symmetric and intact. SPHENOID SINUS AND DRAINAGE PATHWAYS: The sphenoid sinus is clear. The sphenoethmoidal recesses are patent. The carotid canals are normally covered by bone. NASAL PASSAGE: Mild mucosal thickening of the nasal passages. Mild rightward nasal septal deviation with spurring. ORBITS: Normal appearance of the osseous orbits. The lamina papyracea are intact. No significant preseptal or retrobulbar edema. Normal appearance of the globes. Normal symmetric appearance of the extraocular musculature. No abnormalities of the intraconal or extraconal adipose tissue. Normal appearance of the optic nerve sheaths. Normal appearance of the lacrimal glands. No orbital fluid collections. No abnormalities of the orbital apices. TEMPOROMANDIBULAR JOINTS: The temporomandibular joints remain well aligned. Normal appearance of the temporomandibular joints. ADDITIONAL RELEVANT FINDINGS: No evidence of maxillofacial bone fractures. The zygomatic arches remain intact. No nasal bone fracture. No evidence of mandibular or maxillary fracture. Multifocal odontogenic enamel erosions and periapical lucencies, most notably involving the mandibular left 1st molar. Mild soft tissue edema of the outer gums along the left available process of the mandible. No demonstrated discrete drainable fluid collection. The visualized mastoid air cells and middle ear cavities remain well aerated. Limited evaluation of the intracranial structures without significant abnormalities. The premaxillary, retromaxillary, pterygopalatine fossa, temporal fossa, and parapharyngeal adipose tissue is maintained. No demonstrated soft tissue abnormalities within the intrinsic tissues of the tongue. Moderately prominent bilateral levels Ib lymph nodes, measuring up to 1.[address]/CT facial bones wo IV con IMPRESSION: 1. No evidence of acute fracture of the maxillofacial bones. 2. Multifocal odontogenic disease, most notably involving the mandibular left 1st molar. Mild soft tissue edema of the outer gums along the left available process of the mandible. No demonstrated discrete drainable fluid collection. 3. Moderately prominent bilateral levels Ib lymph nodes, likely reactive in nature. Electronically signed by: Garo Weaver DO 05/31/2024 09:28 PM EDT
--- NOTE | 2024-05-31 15:37 | ED_ITS ---
HPI - General Adult General Chief complaint: General Medical Stated complaint: face/throat swelling, weakness, ?allergic reaction Time Seen by Provider: 05/31/24 18:17 Related Data Previous Rx's ?Medication ?Instructions ?Recorded calcium carbonate (Oyster Shell 1,000 mg (2 x 500 mg calcium 08/26/23 Calcium 500) (1,250 mg)) PO BID #60 tabs cholecalciferol (vitamin D3) 25 50 mcg (2 x 25 mcg (1,000 unit)) 08/26/23 mcg (1,000 unit) tablet PO DAILY #30 tabs folic acid 1 mg tablet 1 mg PO DAILY #90 tabs 08/26/23 thiamine mononitrate (vit B1) 100 100 mg PO DAILY #90 tabs 08/26/23 mg tablet Allergies Allergy/AdvReac Type Severity Reaction Status Date / Time amoxicillin Allergy Unknown hives Verified 05/31/24 15:39 Penicillins [PENICILLINS] Allergy Unknown ANAPHYLAXIS Verified 05/31/24 15:39 red dye [RED DYE] Allergy Unknown UNKNOWN Verified 05/31/24 15:39 shrimp [SHRIMP] Allergy Unknown UNKNOWN Verified 05/31/24 15:39 Sulfa (Sulfonamide Allergy Unknown hives Verified 05/31/24 15:39 Antibiotics) sulfamethoxazole Allergy Unknown UNKNOWN Verified 05/31/24 15:39 [From BACTRIM] trimethoprim [From BACTRIM] Allergy Unknown UNKNOWN Verified 05/31/24 15:39 Biaxin Allergy Unknown hives Uncoded 05/31/24 15:39 SEAFOOD Allergy Unknown UNKNOWN Uncoded 05/31/24 15:39 PMFSH Past Medical History Medical History Alcoholism Hernia Surgical History H/O gastric sleeve Social History Social History Household Members: Family Housing: House Do you presently have visiting nurse or other home services: No Alcohol intake: current Comment: refusing fall risk intervention. Patient Tobacco Use Status: Never used Tobacco Substance Use Type: Marijuana Advance Directives: No Advance Directives Information Provided: No Do you have a plan to hurt others: No Plan service: No Physical Exam ED Vital Signs: Vital Signs - 24 hr 05/31/24 15:36 05/31/24 18:13 Temperature 98.7 F 101.7 F H Pulse Rate 118 H Respiratory Rate 19 Blood Pressure 120/80 Pulse Oximetry 98 Oxygen Delivery Method Room Air BMI result Body Mass Index 40.2 Course Course Course Narrative: RME performed by Rosa Maria Arevalo PA-C. Patient is a 28 year old assigned male at presenting to the emergency department with facial swelling and dental issues. Patient states he continues to drink alcohol though he has cut back a lot. Patient states that yesterday he started having jaw pain and began having teeth fall out. Patient states that he has lost 4 teeth in his left lower jaw. Detailed physical exam and review of systems are deferred to the director federal. Labs ordered. Patient placed back in the waiting room pending room availability and results. Medications Administered Generic Name Dose Route Start Last Admin Trade Name Freq PRN Reason Stop Dose Admin Sodium Chloride 1,000 mls @ 999 mls/hr 05/31/24 18:31 05/31/24 18:40 Ns IV 05/31/24 19:31 999 mls/hr .[id number] ONE Administration Discontinued Medications Generic Name Dose Route Start Last Admin Trade Name Freq PRN Reason Stop Dose Admin Acetaminophen 975 mg 05/31/24 18:32 05/31/24 18:40 Acetaminophen 325 Mg Tablet PO 05/31/24 18:33 975 mg ONCE ONE Administration Magnesium Sulfate 2 gm in 50 mls @ 150 mls/hr 05/31/24 18:31 05/31/24 18:41 Magnesium Sulfate/H2o IV 05/31/24 18:50 150 mls/hr ONCE ONE Administration Ceftriaxone Sodium 1 gm/ 50 mls @ 100 mls/hr 05/31/24 18:32 05/31/24 19:01 Sodium Chloride IV 05/31/24 19:01 Infused ONCE ONE Infusion Ketorolac Tromethamine 30 mg 05/31/24 18:32 05/31/24 18:42 Ketorolac Tromethamine 30 Mg/Ml Vial IVPUSH 05/31/24 18:33 30 mg ONCE ONE Administration Lorazepam 2 mg 05/31/24 18:39 05/31/24 18:53 Lorazepam 1 Mg Tablet PO 05/31/24 18:40 2 mg ONCE ONE Administration Potassium Bicarbonate 50 meq 05/31/24 18:31 05/31/24 18:40 Potassium Bicarbonate/Cit Ac 25 Meq Tablet.Eff PO 05/31/24 18:32 50 meq ONCE ONE Administration Medical Decision Making Medical Decision Making [facility] Narrative: Patient alcoholic with hypomagnesemia hypomagnesemia and hyper lactic acidosis low-grade fever with dental pain likely from the cavity lactic acidosis is type B from alcohol use not from sepsis will restrict IV fluids give IV antibiotics for possible dental caries infection and replace magnesium and potassium Lab Data 05/31/24 17:59 05/31/24 17:59 Labs: Lab Results 05/31/24 05/31/24 05/31/24 Range/Units 15:55 17:59 18:26 WBC 8.4 (4.8-10.8) X10*3/uL RBC 2.75 L (4.60-5.80) X10*6/uL Hgb 10.4 L (14.0-18.0) g/dl Hct 27.7 L (42.0-52.0) % MCV 100.7 H (80.0-98.0) fL MCH 37.8 H (27.0-33.0) pg MCHC 37.5 H (31.0-36.0) g/dl RDW 24.8 H (11.0-16.0) % Plt Count 269 D (160-400) X10*3/uL MPV 9.2 L (9.4-12.4) fL Immature Gran % (Auto) Cancelled Neut % (Auto) Cancelled Lymph % (Auto) Cancelled Bledsoe % (Auto) Cancelled Eos % (Auto) Cancelled Baso % (Auto) Cancelled Lymph # (Auto) Cancelled Bledsoe # (Auto) Cancelled Eos # (Auto) Cancelled Baso # (Auto) Cancelled Abs Immat Gran (auto) Cancelled Absolute Neuts (auto) Cancelled Absolute Nucleated RBC 0.780 H (0.0-0.012) X10*3/uL Nucleated RBC % (auto) 9.3 H (0.0-0.2) /100WBC Neutrophils % (Manual) 63 (45-73) % Band Neutrophils % 4 (3-5) % Lymphocytes % (Manual) 22 (20-40) % Atypical Lymphs % (Man) 1 (0-6) % Monocytes % (Manual) 8 (2-11) % Eosinophils % (Manual) 1 (0-4) % Metamyelocytes % 1 % Abs Neuts (Manual) 5.6 (2.0-8.3) X10*3/uL Lymphocytes # (Manual) 1.8 (1.2-4.9) X10*3/uL Atyp Lymphs # (Manual) 0.1 x10*3/uL Monocytes # (Manual) 0.7 (0.1-1.2) X10*3/uL Eosinophils # (Manual) 0.1 (0.0-0.4) X10*3/uL Metamyelocytes # 0.1 X10*3/uL Nucleated RBCs 9 H (0-0) /100WBC Hypersegmented Neuts PRESENT Smudge Cells PRESENT Toxic Vacuolation PRESENT Platelet Estimate NORMAL (NORMAL) Plt Morphology Comment NOTED RBC Morphology NOTED Macrocytosis 1+ (5-14) /OIF Tear Drop Cells 1+ (0-2) /OIF Stomatocytes 1+ (5-14) /OIF Hold Purple Top Hold Blue Top Sodium 131 L (135-145) mmol/L Potassium 2.8 L* (3.3-5.1) mmol/L Chloride 87 L (96-108) mmol/L Carbon Dioxide 24 (22-29) mmol/L Anion Gap 23 H (12-20) BUN 10 (9-16) mg/dL Creatinine 0.77 (0.5-1.4) mg/dL Estim Creat Clear Calc 189.4 Estimated GFR > 60 Random Glucose 114 (60-115) mg/dL Lactic Acid 4.9 H* (0.5-2.0) mmol/L Calcium 6.7 L (8.4-10.2) mg/dL Magnesium 0.8 L* (1.6-2.6) mg/dL Total Bilirubin 2.1 H (0.0-1.0) mg/dL AST 192 H (5-37) U/L ALT 92 H (0-40) U/L Alkaline Phosphatase 361 H (39-117) U/L C-Reactive Protein 18.85 H (< or = 0.50) mg/dL Total Protein 6.9 (6.5-8.0) g/dL Albumin 3.4 L (3.5-5.0) g/dL Influenza Type A (PCR) NEGATIVE (Negative) Influenza Type B (PCR) NEGATIVE (Negative) RSV RNA Qual (PCR) NEGATIVE (Negative) SARS-CoV-2 RNA (RT-PCR) NEGATIVE (Negative) 05/31/24 Range/Units 18:30 WBC (4.8-10.8) X10*3/uL RBC (4.60-5.80) X10*6/uL Hgb (14.0-18.0) g/dl Hct (42.0-52.0) % MCV (80.0-98.0) fL MCH (27.0-33.0) pg MCHC (31.0-36.0) g/dl RDW (11.0-16.0) % Plt Count (160-400) X10*3/uL MPV (9.4-12.4) fL Immature Gran % (Auto) Neut % (Auto) Lymph % (Auto) Bledsoe % (Auto) Eos % (Auto) Baso % (Auto) Lymph # (Auto) Bledsoe # (Auto) Eos # (Auto) Baso # (Auto) Abs Immat Gran (auto) Absolute Neuts (auto) Absolute Nucleated RBC (0.0-0.012) X10*3/uL Nucleated RBC % (auto) (0.0-0.2) /100WBC Neutrophils % (Manual) (45-73) % Band Neutrophils % (3-5) % Lymphocytes % (Manual) (20-40) % Atypical Lymphs % (Man) (0-6) % Monocytes % (Manual) (2-11) % Eosinophils % (Manual) (0-4) % Metamyelocytes % % Abs Neuts (Manual) (2.0-8.3) X10*3/uL Lymphocytes # (Manual) (1.2-4.9) X10*3/uL Atyp Lymphs # (Manual) x10*3/uL Monocytes # (Manual) (0.1-1.2) X10*3/uL Eosinophils # (Manual) (0.0-0.4) X10*3/uL Metamyelocytes # X10*3/uL Nucleated RBCs (0-0) /100WBC Hypersegmented Neuts Smudge Cells Toxic Vacuolation Platelet Estimate (NORMAL) Plt Morphology Comment RBC Morphology Macrocytosis /OIF Tear Drop Cells /OIF Stomatocytes /OIF Hold Purple Top SEE NOTE Hold Blue Top SEE NOTE Sodium (135-145) mmol/L Potassium (3.3-5.1) mmol/L Chloride (96-108) mmol/L Carbon Dioxide (22-29) mmol/L Anion Gap (12-20) BUN (9-16) mg/dL Creatinine (0.5-1.4) mg/dL Estim Creat Clear Calc Estimated GFR Random Glucose (60-115) mg/dL Lactic Acid (0.5-2.0) mmol/L Calcium (8.4-10.2) mg/dL Magnesium (1.6-2.6) mg/dL Total Bilirubin (0.0-1.0) mg/dL AST (5-37) U/L ALT (0-40) U/L Alkaline Phosphatase (39-117) U/L C-Reactive Protein (< or = 0.50) mg/dL Total Protein (6.5-8.0) g/dL Albumin (3.5-5.0) g/dL Influenza Type A (PCR) (Negative) Influenza Type B (PCR) (Negative) RSV RNA Qual (PCR) (Negative) SARS-CoV-2 RNA (RT-PCR) (Negative) Discharge Plan Discharge Prescriptions: No Action folic acid 1 mg Tablet 1 mg PO DAILY Qty: 90 0RF cholecalciferol (vitamin D3) 25 mcg (1,000 unit) Tablet 50 mcg PO DAILY Qty: 30 1RF thiamine mononitrate (vit B1) 100 mg Tablet 100 mg PO DAILY Qty: 90 0RF calcium carbonate [Oyster Shell Calcium 500] 500 mg calcium (1,250 mg) Tablet 1,000 mg PO BID Qty: 60 1RF Print Language: [place]
[2024-05-31 16:47] LABS: Influenza A PCR NEGATIVE (Negative); Influenza B PCR NEGATIVE (Negative); Resp Syncy Virus RNA Qual PCR NEGATIVE (Negative); SARS COV2 PCR INHOUSE NEGATIVE (Negative)
[2024-05-31 18:07] LABS: Hematocrit 27.7 % (42.0-52.0); Hemoglobin 10.4 g/dl (14.0-18.0); Mean Corpuscular HGB Conc 37.5 g/dl (31.0-36.0); Mean Corpuscular Hemoglobin 37.8 pg (27.0-33.0); Mean Corpuscular Volume 100.7 fL (80.0-98.0); Mean Platelet Volume 9.2 fL (9.4-12.4); Platelet Count 269 X10*3/uL (160-400); Red Blood Count 2.75 X10*6/uL (4.60-5.80); Red Cell Distribution Width 24.8 % (11.0-16.0); White Blood Count 8.4 X10*3/uL (4.8-10.8)
[2024-05-31 18:31] LABS: Alanine Aminotransferase 92 U/L (0-40); Albumin Level 3.4 g/dL (3.5-5.0); Alkaline Phosphatase 361 U/L (39-117); Anion Gap 23 (12-20); Aspartate Amino Transferase 192 U/L (5-37); Bilirubin Total 2.1 mg/dL (0.0-1.0); Blood Urea Nitrogen 10 mg/dL (9-16); C Reactive Protein 18.85 mg/dL (< or = 0.50); Calcium 6.7 mg/dL (8.4-10.2); Carbon Dioxide 24 mmol/L (22-29); Chloride 87 mmol/L (96-108); Creatinine Clr Calc Pharmacy 189.4; Estimated Glomerular Filt Rate > 60; Glucose Random 114 mg/dL (60-115); Magnesium 0.8 mg/dL (1.6-2.6); Potassium 2.8 mmol/L (3.3-5.1); Sodium 131 mmol/L (135-145); Total Protein 6.9 g/dL (6.5-8.0)
[2024-05-31 18:32] LABS: NRBC Pct Auto 9.3 /100WBC (0.0-0.2)
--- NOTE | 2024-05-31 18:34 | ECG_ITS ---
Test Reason : CRITICAL LABS Blood Pressure : / mmHG Vent. Rate : 114 BPM Atrial Rate : 114 BPM P-R Int : 130 ms QRS Dur : 084 ms QT Int : 358 ms P-R-T Axes : 014 031 010 degrees QTc Int : 493 ms Sinus tachycardia Nonspecific ST abnormality Abnormal ECG When compared with ECG of 24-AUG-2023 11:52, No significant change was found Referred By: Russ Garcia Electronically Signed By:NATHAN MOSES
[2024-05-31] MEDS: Acetaminophen 325 MG TABLET 975 MG PO (18:40)
[2024-05-31] MEDS: Potassium Bicarbonate/Cit AC 25 MEQ TABLET.EFF 50 MEQ PO (18:40)
[2024-05-31] MEDS: 0.9 % Sodium Chloride 1,000 ML 999 ML IV ×2 (18:40→23:13)
[2024-05-31 18:41] LABS: Atypical Lymph Absolute Manual 0.1 x10*3/uL; Atypical Lymphs Percent Manual 1 % (0-6); Band Neutrophils Percent 4 % (3-5); Eosinophils Absolute Manual 0.1 X10*3/uL (0.0-0.4); Eosinophils Percent Manual 1 % (0-4); Lymphocytes Absolute Manual 1.8 X10*3/uL (1.2-4.9); Lymphocytes Percent Manual 22 % (20-40); Metamyelocytes Absolute 0.1 X10*3/uL; Metamyelocytes Percent 1 %; Monocytes Absolute Manual 0.7 X10*3/uL (0.1-1.2); Monocytes Percent Manual 8 % (2-11); Neutrophils Absolute Manual 5.6 X10*3/uL (2.0-8.3); Neutrophils Percent Manual 63 % (45-73); Nucleated Red Blood Cells 9 /100WBC (0-0)
[2024-05-31] MEDS: cefTRIAXone sodium 1 GM in 0.9 % Sodium Chloride 50 ML IV (18:41)
[2024-05-31] MEDS: Magnesium Sulfate/H2O 2 GM/50 ML PIGGYBACK IV (18:41)
[2024-05-31] MEDS: Ketorolac Tromethamine 30 MG/ML VIAL IVPUSH (18:42)
[2024-05-31 18:45] LABS: Hypersegmented Neutrophils PRESENT; Macrocytosis 1+ (5-14) /OIF; RBC Morphology NOTED; Smudge Cells PRESENT; Stomatocytes 1+ (5-14) /OIF; Toxic Vacuolation PRESENT
[2024-05-31 18:46] LABS: Platelet Estimate NORMAL (NORMAL); Platelet Morphology Comment NOTED; Tear Drop Cells 1+ (0-2) /OIF
[2024-05-31 18:50] LABS: Lactic Acid 4.9 mmol/L (0.5-2.0)
[2024-05-31] MEDS: LORazepam 1 MG TABLET 2 MG PO (18:53)
--- NOTE | 2024-05-31 19:00 | ED_ITS ---
HPI - General Adult General Chief complaint: General Medical Stated complaint: face/throat swelling, weakness, ?allergic reaction Time Seen by Provider: 05/31/24 18:17 Source: patient Mode of arrival: ambulatory Limitations: no limitations History of Present Illness ED Provider: alvaro SEPULVEDA narrative: Patient alcoholic drinks vodka every day with history of hypomagnesemia and hyperpotassemia comes here for lower teeth pain since yesterday had deep cavities and 2 chipped off having chills on arrival noticed to have fever with temperature of 101.7 degrees Related Data Previous Rx's ?Medication ?Instructions ?Recorded calcium carbonate (Oyster Shell 1,000 mg (2 x 500 mg calcium 08/26/23 Calcium 500) (1,250 mg)) PO BID #60 tabs cholecalciferol (vitamin D3) 25 50 mcg (2 x 25 mcg (1,000 unit)) 08/26/23 mcg (1,000 unit) tablet PO DAILY #30 tabs folic acid 1 mg tablet 1 mg PO DAILY #90 tabs 08/26/23 thiamine mononitrate (vit B1) 100 100 mg PO DAILY #90 tabs 08/26/23 mg tablet Allergies Allergy/AdvReac Type Severity Reaction Status Date / Time amoxicillin Allergy Unknown hives Verified 05/31/24 15:39 Penicillins [PENICILLINS] Allergy Unknown ANAPHYLAXIS Verified 05/31/24 15:39 red dye [RED DYE] Allergy Unknown UNKNOWN Verified 05/31/24 15:39 shrimp [SHRIMP] Allergy Unknown UNKNOWN Verified 05/31/24 15:39 Sulfa (Sulfonamide Allergy Unknown hives Verified 05/31/24 15:39 Antibiotics) sulfamethoxazole Allergy Unknown UNKNOWN Verified 05/31/24 15:39 [From BACTRIM] trimethoprim [From BACTRIM] Allergy Unknown UNKNOWN Verified 05/31/24 15:39 Biaxin Allergy Unknown hives Uncoded 05/31/24 15:39 SEAFOOD Allergy Unknown UNKNOWN Uncoded 05/31/24 15:39 Review of Systems 2 Review of Systems: Yes all other systems are reviewed and are negative PMFSH Past Medical History Medical History Alcoholism Hernia Surgical History H/O gastric sleeve Social History Social History Household Members: Family Housing: House Do you presently have visiting nurse or other home services: No Alcohol intake: current Alcohol type: hard liquor Comment: refusing fall risk intervention. Patient Tobacco Use Status: Never used Tobacco Use of substances other than those prescribed or required for medical reasons: No Substance Use Type: Marijuana Advance Directives: No Advance Directives Information Provided: No Do you have a plan to hurt others: No Plan service: No Physical Exam ED Vital Signs: Vital Signs - 24 hr 05/31/24 15:36 05/31/24 18:13 05/31/24 19:01 Temperature 98.7 F 101.7 F H Pulse Rate 118 H 94 Respiratory Rate 19 Blood Pressure 120/80 139/114 H Pulse Oximetry 98 Oxygen Delivery Method Room Air 05/31/24 19:08 05/31/24 19:54 05/31/24 20:16 Temperature Pulse Rate 113 H 113 H 97 Respiratory Rate Blood Pressure 111/83 134/82 115/94 H Pulse Oximetry Oxygen Delivery Method 05/31/24 20:35 05/31/24 20:37 05/31/24 21:14 Temperature 98.9 F 98.9 F Pulse Rate 116 H 112 H Respiratory Rate 20 Blood Pressure 140/66 H 122/82 Pulse Oximetry Oxygen Delivery Method 06/01/24 01:17 Temperature 98.3 F Pulse Rate 109 H Respiratory Rate 24 H Blood Pressure 134/75 Pulse Oximetry 95 Oxygen Delivery Method Room Air BMI result Body Mass Index 40.2 Appearance: Alert. Oriented X3. No acute distress. Eyes: PERRLA, No Nystagmus ENT: Pharynx normal. Oral Mucosa moist poor oral hygiene diffuse dental tenderness no abscess noticed Neck: Normal inspection. Neck supple. CVS: Normal heart rate and rhythm. Pulses normal. Respiratory: No respiratory distress. Equal air entry bilateral, no wheezing/rales/rhonchi Abdomen: Soft and nontender. Bowel sounds are present, no mass palpable, no CVA tenderness Skin: Skin warm and dry. Normal skin color. Normal skin turgor. Extremities: No lower extremity edema. No calf tenderness Neuro: Oriented X 3. No motor deficit. No sensory deficit.No cerebellar signs , cranial nerves II-XII intact [facility] Teeth image: 2 1. Deep cavities tooth 20, 19 no gum swelling Medications Administered Discontinued Medications Generic Name Dose Route Start Last Admin Trade Name [place] PRN Reason Stop Dose Admin Acetaminophen 975 mg 05/31/24 18:32 05/31/24 18:40 Acetaminophen 325 Mg Tablet PO 05/31/24 18:33 975 mg ONCE ONE Administration Folic Acid 1 mg 06/01/24 00:54 06/01/24 02:00 Folic Acid 1 Mg Tablet PO 06/01/24 00:55 1 mg ONCE ONE Administration Sodium Chloride 1,000 mls @ 999 mls/hr 05/31/24 18:31 05/31/24 19:40 Ns IV 05/31/24 19:31 Infused .Q1H1M ONE Infusion Magnesium Sulfate 2 gm in 50 mls @ 150 mls/hr 05/31/24 18:31 05/31/24 19:02 Magnesium Sulfate/H2o IV 05/31/24 18:50 Infused ONCE ONE Infusion Potassium Chloride 10 meq in 100 mls @ 100 mls/hr 05/31/24 18:45 05/31/24 21:34 Potassium Chloride/H20 IV 05/31/24 20:44 Infused Q1H MICHAEL Infusion Ceftriaxone Sodium 1 gm/ 50 mls @ 100 mls/hr 05/31/24 18:32 05/31/24 19:01 Sodium Chloride IV 05/31/24 19:01 Infused ONCE ONE Infusion Sodium Chloride 1,000 mls @ 999 mls/hr 05/31/24 22:48 05/31/24 23:13 Ns IV 05/31/24 23:48 999 mls/hr .Q1H1M ONE Administration Magnesium Sulfate 2 gm in 50 mls @ 150 mls/hr 06/01/24 00:48 06/01/24 02:00 Magnesium Sulfate/H2o IV 06/01/24 01:07 150 mls/hr ONCE ONE Administration Calcium Gluconate 2 gm in 100 mls @ 400 mls/hr 06/01/24 00:48 06/01/24 02:03 Calcium Gluconate IV 06/01/24 01:02 400 mls/hr ONCE ONE Administration Ketorolac Tromethamine 30 mg 05/31/24 18:32 05/31/24 18:42 Ketorolac Tromethamine 30 Mg/Ml Vial IVPUSH 05/31/24 18:33 30 mg ONCE ONE Administration Lorazepam 2 mg 05/31/24 18:39 05/31/24 18:53 Lorazepam 1 Mg Tablet PO 05/31/24 18:40 2 mg ONCE ONE Administration Potassium Bicarbonate 50 meq 05/31/24 18:31 05/31/24 18:40 Potassium Bicarbonate/Cit Ac 25 Meq Tablet.Eff PO 05/31/24 18:32 50 meq ONCE ONE Administration Thiamine HCl 100 mg 06/01/24 00:54 06/01/24 02:00 Thiamine Hcl 100 Mg Tablet PO 06/01/24 00:55 100 mg ONCE ONE Administration Medical Decision Making Medical Decision Making [facility] Narrative: Patient alcoholic with severe malnutrition poor oral hygiene with history of hypomagnesemia and hypokalemia feeling increasingly weak unable to ambulate for last few days drinking heavy alcohol for last 10 yrs patient has received IV potassium and IV magnesium repeat potassium was 2.5 and magnesium is 1.2 CPK 140 calcium was 5.8 will admit patient for IV hydration and electrolyte replacement patient's history is feeling very weak to ambulate Differential Diagnosis Differential Diagnoses: The differential diagnosis associated with the presentation includes Admission/Observation Consideration of admission/observation: Escalation of care including admission/observation considered Consult Healthcare Provider Management of the patient was discussed with: Hospitalist Lab Data [facility] Lab Attestation statement: I reviewed the patient's lab results. 05/31/24 17:59 06/01/24 00:15 Labs: Lab Results 05/31/24 05/31/24 05/31/24 Range/Units 15:55 17:59 18:26 WBC 8.4 (4.8-10.8) X10*3/uL RBC 2.75 L (4.60-5.80) X10*6/uL Hgb 10.4 L (14.0-18.0) g/dl Hct 27.7 L (42.0-52.0) % MCV 100.7 H (80.0-98.0) fL MCH 37.8 H (27.0-33.0) pg MCHC 37.5 H (31.0-36.0) g/dl RDW 24.8 H (11.0-16.0) % Plt Count 269 D (160-400) X10*3/uL MPV 9.2 L (9.4-12.4) fL Immature Gran % (Auto) Cancelled Neut % (Auto) Cancelled Lymph % (Auto) Cancelled [place] % (Auto) Cancelled Eos % (Auto) Cancelled Baso % (Auto) Cancelled Lymph # (Auto) Cancelled Swift # (Auto) Cancelled Eos # (Auto) Cancelled Baso # (Auto) Cancelled Abs Immat Gran (auto) Cancelled Absolute Neuts (auto) Cancelled Absolute Nucleated RBC 0.780 H (0.0-0.012) X10*3/uL Nucleated RBC % (auto) 9.3 H (0.0-0.2) /100WBC Neutrophils % (Manual) 63 (45-73) % Band Neutrophils % 4 (3-5) % Lymphocytes % (Manual) 22 (20-40) % Atypical Lymphs % (Man) 1 (0-6) % Monocytes % (Manual) 8 (2-11) % Eosinophils % (Manual) 1 (0-4) % Metamyelocytes % 1 % Abs Neuts (Manual) 5.6 (2.0-8.3) X10*3/uL Lymphocytes # (Manual) 1.8 (1.2-4.9) X10*3/uL Atyp Lymphs # (Manual) 0.1 x10*3/uL Monocytes # (Manual) 0.7 (0.1-1.2) X10*3/uL Eosinophils # (Manual) 0.1 (0.0-0.4) X10*3/uL Metamyelocytes # 0.1 X10*3/uL Nucleated RBCs 9 H (0-0) /100WBC Hypersegmented Neuts PRESENT Smudge Cells PRESENT Toxic Vacuolation PRESENT Platelet Estimate NORMAL (NORMAL) Plt Morphology Comment NOTED RBC Morphology NOTED Macrocytosis 1+ (5-14) /OIF Tear Drop Cells 1+ (0-2) /OIF Stomatocytes 1+ (5-14) /OIF ESR 28 H (0-15) MM/HR Hold Purple Top Hold Blue Top Sodium 131 L (135-145) mmol/L Potassium 2.8 L* (3.3-5.1) mmol/L Chloride 87 L (96-108) mmol/L Carbon Dioxide 24 (22-29) mmol/L Anion Gap 23 H (12-20) BUN 10 (9-16) mg/dL Creatinine 0.77 (0.5-1.4) mg/dL Estim Creat Clear Calc 189.4 Estimated GFR > 60 Random Glucose 114 (60-115) mg/dL Lactic Acid 4.9 H* (0.5-2.0) mmol/L Lactic Acid F/U @ 2Hr (0.5-2.0) mmol/L Lactic Acid F/U @ 4Hr (0.5-2.0) mmol/L Calcium 6.7 L (8.4-10.2) mg/dL Magnesium 0.8 L* (1.6-2.6) mg/dL Total Bilirubin 2.1 H (0.0-1.0) mg/dL AST 192 H (5-37) U/L ALT 92 H (0-40) U/L Alkaline Phosphatase 361 H (39-117) U/L Total Creatine Kinase (38-174) U/L C-Reactive Protein 18.85 H (< or = 0.50) mg/dL Total Protein 6.9 (6.5-8.0) g/dL Albumin 3.4 L (3.5-5.0) g/dL Urine Color Urine Appearance Urine pH (5.0-9.0) Ur Specific [place] (1.005-1.025) Urine Protein (Neg-Trace) mg/dL Urine Glucose (UA) (Negative) mg/dL Urine Ketones (Negative) mg/dL Urine Blood (Negative) Urine Nitrite (Negative) Ur Leukocyte Esterase (Negative) Urine RBC (0-2) /HPF Urine WBC (0-5) /HPF Ur Squamous Epith Cells (0-2) /HPF Urine Bacteria (None Seen) Hyaline Casts (0-2) /LPF Ethyl Alcohol < 10 mg/dL Influenza Type A (PCR) NEGATIVE (Negative) Influenza Type B (PCR) NEGATIVE (Negative) RSV RNA Qual (PCR) NEGATIVE (Negative) SARS-CoV-2 RNA (RT-PCR) NEGATIVE (Negative) 05/31/24 05/31/24 05/31/24 Range/Units 18:30 20:41 23:59 WBC (4.8-10.8) X10*3/uL RBC (4.60-5.80) X10*6/uL Hgb (14.0-18.0) g/dl Hct (42.0-52.0) % MCV (80.0-98.0) fL MCH (27.0-33.0) pg MCHC (31.0-36.0) g/dl RDW (11.0-16.0) % Plt Count (160-400) X10*3/uL MPV (9.4-12.4) fL Immature Gran % (Auto) Neut % (Auto) Lymph % (Auto) Swift % (Auto) Eos % (Auto) Baso % (Auto) Lymph # (Auto) [place] # (Auto) Eos # (Auto) Baso # (Auto) Abs Immat Gran (auto) Absolute Neuts (auto) Absolute Nucleated RBC (0.0-0.012) X10*3/uL Nucleated RBC % (auto) (0.0-0.2) /100WBC Neutrophils % (Manual) (45-73) % Band Neutrophils % (3-5) % Lymphocytes % (Manual) (20-40) % Atypical Lymphs % (Man) (0-6) % Monocytes % (Manual) (2-11) % Eosinophils % (Manual) (0-4) % Metamyelocytes % % Abs Neuts (Manual) (2.0-8.3) X10*3/uL Lymphocytes # (Manual) (1.2-4.9) X10*3/uL Atyp Lymphs # (Manual) x10*3/uL Monocytes # (Manual) (0.1-1.2) X10*3/uL Eosinophils # (Manual) (0.0-0.4) X10*3/uL Metamyelocytes # X10*3/uL Nucleated RBCs (0-0) /100WBC Hypersegmented Neuts Smudge Cells Toxic Vacuolation Platelet Estimate (NORMAL) Plt Morphology Comment RBC Morphology Macrocytosis /OIF Tear Drop Cells /OIF Stomatocytes /OIF ESR (0-15) MM/HR Hold Purple Top SEE NOTE Hold Blue Top SEE NOTE Sodium (135-145) mmol/L Potassium (3.3-5.1) mmol/L Chloride (96-108) mmol/L Carbon Dioxide (22-29) mmol/L Anion Gap (12-20) BUN (9-16) mg/dL Creatinine (0.5-1.4) mg/dL Estim Creat Clear Calc Estimated GFR Random Glucose (60-115) mg/dL Lactic Acid (0.5-2.0) mmol/L Lactic Acid F/U @ 2Hr 3.5 H* (0.5-2.0) mmol/L Lactic Acid F/U @ 4Hr (0.5-2.0) mmol/L Calcium (8.4-10.2) mg/dL Magnesium (1.6-2.6) mg/dL Total Bilirubin (0.0-1.0) mg/dL AST (5-37) U/L ALT (0-40) U/L Alkaline Phosphatase (39-117) U/L Total Creatine Kinase (38-174) U/L C-Reactive Protein (< or = 0.50) mg/dL Total Protein (6.5-8.0) g/dL Albumin (3.5-5.0) g/dL Urine Color Dark Yellow Urine Appearance Clear Urine pH 6.0 (5.0-9.0) Ur Specific [place] 1.025 (1.005-1.025) Urine Protein Trace (Neg-Trace) mg/dL Urine Glucose (UA) Negative (Negative) mg/dL Urine Ketones Trace (Negative) mg/dL Urine Blood Negative (Negative) Urine Nitrite Negative (Negative) Ur Leukocyte Esterase Small (1+) H (Negative) Urine RBC 3-5 H (0-2) /HPF Urine WBC 0-5 (0-5) /HPF Ur Squamous Epith Cells 3-5 (0-2) /HPF Urine Bacteria None Seen (None Seen) Hyaline Casts 11-20 (0-2) /LPF Ethyl Alcohol mg/dL Influenza Type A (PCR) (Negative) Influenza Type B (PCR) (Negative) RSV RNA Qual (PCR) (Negative) SARS-CoV-2 RNA (RT-PCR) (Negative) 06/01/24 Range/Units 00:15 WBC (4.8-10.8) X10*3/uL RBC (4.60-5.80) X10*6/uL Hgb (14.0-18.0) g/dl Hct (42.0-52.0) % MCV (80.0-98.0) fL MCH (27.0-33.0) pg MCHC (31.0-36.0) g/dl RDW (11.0-16.0) % Plt Count (160-400) X10*3/uL MPV (9.4-12.4) fL Immature Gran % (Auto) Neut % (Auto) Lymph % (Auto) [place] % (Auto) Eos % (Auto) Baso % (Auto) Lymph # (Auto) [place] # (Auto) Eos # (Auto) Baso # (Auto) Abs Immat Gran (auto) Absolute Neuts (auto) Absolute Nucleated RBC (0.0-0.012) X10*3/uL Nucleated RBC % (auto) (0.0-0.2) /100WBC Neutrophils % (Manual) (45-73) % Band Neutrophils % (3-5) % Lymphocytes % (Manual) (20-40) % Atypical Lymphs % (Man) (0-6) % Monocytes % (Manual) (2-11) % Eosinophils % (Manual) (0-4) % Metamyelocytes % % Abs Neuts (Manual) (2.0-8.3) X10*3/uL Lymphocytes # (Manual) (1.2-4.9) X10*3/uL Atyp Lymphs # (Manual) x10*3/uL Monocytes # (Manual) (0.1-1.2) X10*3/uL Eosinophils # (Manual) (0.0-0.4) X10*3/uL Metamyelocytes # X10*3/uL Nucleated RBCs (0-0) /100WBC Hypersegmented Neuts Smudge Cells Toxic Vacuolation Platelet Estimate (NORMAL) Plt Morphology Comment RBC Morphology Macrocytosis /OIF Tear Drop Cells /OIF Stomatocytes /OIF ESR (0-15) MM/HR Hold Purple Top Hold Blue Top Sodium 130 L (135-145) mmol/L Potassium 2.5 L* (3.3-5.1) mmol/L Chloride 91 L (96-108) mmol/L Carbon Dioxide 22 (22-29) mmol/L Anion Gap 20 (12-20) BUN 10 (9-16) mg/dL Creatinine 0.69 (0.5-1.4) mg/dL Estim Creat Clear Calc 211.3 Estimated GFR > 60 Random Glucose 111 (60-115) mg/dL Lactic Acid (0.5-2.0) mmol/L Lactic Acid F/U @ 2Hr (0.5-2.0) mmol/L Lactic Acid F/U @ 4Hr 4.0 H* (0.5-2.0) mmol/L Calcium 5.8 L* D (8.4-10.2) mg/dL Magnesium 1.2 L* (1.6-2.6) mg/dL Total Bilirubin (0.0-1.0) mg/dL AST (5-37) U/L ALT (0-40) U/L Alkaline Phosphatase (39-117) U/L Total Creatine Kinase 114 (38-174) U/L C-Reactive Protein (< or = 0.50) mg/dL Total Protein (6.5-8.0) g/dL Albumin (3.5-5.0) g/dL Urine Color Urine Appearance Urine pH (5.0-9.0) Ur Specific [place] (1.005-1.025) Urine Protein (Neg-Trace) mg/dL Urine Glucose (UA) (Negative) mg/dL Urine Ketones (Negative) mg/dL Urine Blood (Negative) Urine Nitrite (Negative) Ur Leukocyte Esterase (Negative) Urine RBC (0-2) /HPF Urine WBC (0-5) /HPF Ur Squamous Epith Cells (0-2) /HPF Urine Bacteria (None Seen) Hyaline Casts (0-2) /LPF Ethyl Alcohol mg/dL Influenza Type A (PCR) (Negative) Influenza Type B (PCR) (Negative) RSV RNA Qual (PCR) (Negative) SARS-CoV-2 RNA (RT-PCR) (Negative) Independent Interpretation I performed an independent interpretation of an: EKG and CT Scan Interpretation: Sinus tachycardia heart rate 114 beats per minute normal interval normal axis no acute STT wave changes no acute ischemia Radiology Impression Discussion of test interpretation with radiology: I have reviewed the radiologist's reading. Radiologist Impression: CT/CT facial bones wo IV con IMPRESSION: 1. No evidence of acute fracture of the maxillofacial bones. 2. Multifocal odontogenic disease, most notably involving the mandibular left 1st molar. Mild soft tissue edema of the outer gums along the left available process of the mandible. No demonstrated discrete drainable fluid collection. 3. Moderately prominent bilateral levels Ib lymph nodes, likely reactive in nature. Electronically signed by: Garo Weaver DO 05/31/2024 09:28 PM EDT RP Critical Care Time Critical Care Time Critical Care Time: Yes Total Critical Care Time: 55 Attestation: The patient was critically ill with a high probability of imminent or life threatening deterioration. I spent greater than 60???minutes of discontinuous time evaluating the patient,delivering critical care at the bedside, discussing and evaluating pertinent data with consultants. Critical care time does not include time spent performing separately billable procedures or teaching. Total time spent performing critical care was 55???minutes. Discharge Plan Discharge Clinical Impression: Alcohol abuse, Hypocalcemia, Hypomagnesemia, Acute hypokalemia, Weakness, Acidosis, lactic Patient Disposition: Admitted As Inpatient Print Language: Upper Sorbian
[2024-05-31 19:21] LABS: Erythrocyte Sedimentation Rate 28 MM/HR (0-15)
[2024-05-31 19:26] LABS: Ethanol < 10 mg/dL
[2024-05-31] MEDS: Potassium Chloride/H20 10 MEQ/100 ML PIGGYBACK 100 MEQ IV ×2 (19:30→20:34)
[2024-05-31 20:33] LABS: Reflex Lactate? Lactic Acid Added
[2024-05-31 21:03] LABS: ~Lactic Acid-LAB USE ONLY 3.5 mmol/L (0.5-2.0)
--- NOTE | 2024-05-31 21:03 | PC.NURSE ---
3.4 critical lactic rec- MD Radha rudd
[2024-05-31 22:43] LABS: Reflex Lactate? 2 Y
--- NOTE | 2024-05-31 23:34 | PC.NURSE ---
Addendum entered by Jewels Chavarria 06/01/24 00:23: when asked about his weakness/unsteadiness patient states that this has been ongoing for approx 6 months and uses a cane to ambulate at home. does not have primary care provider at this time, contributes his weakness to having bad knees . able to provide urine sample, 400mL of dark urine. repeat labs obtained, fluids infusing at this time. provided with food/drink. awaiting dispo at this time. Original Note: patient attempting to stand and use urinal, patient very unsteady on his feet. unable to urinate at this time. obtaining commode for patient safety.
[2024-06-01 00:09] LABS: Appearance Urine Clear; Color Urine Dark Yellow; Glucose Urine UA Negative (Negative); Leukocyte Esterase Urine Small (1+) (Negative); Nitrite Urine Negative (Negative); Specific Gravity - Urine 1.025 (1.005-1.025); UMIC TRIGGER UACC YES; Urine Blood Negative (Negative); Urine Ketones Trace mg/dL (Negative); Urine Protein Trace mg/dL (Neg-Trace)
[2024-06-01 00:23] LABS: Bacteria Urine None Seen (None Seen); UACC Culture Trigger YES; WBC Urine 0-5 /HPF (0-5)
[2024-06-01 00:49] LABS: Anion Gap 20 (12-20); Blood Urea Nitrogen 10 mg/dL (9-16); Calcium 5.8 mg/dL (8.4-10.2); Carbon Dioxide 22 mmol/L (22-29); Chloride 91 mmol/L (96-108); Creatinine Clr Calc Pharmacy 211.3; Estimated Glomerular Filt Rate > 60; Glucose Random 111 mg/dL (60-115); Magnesium 1.2 mg/dL (1.6-2.6); Potassium 2.5 mmol/L (3.3-5.1); Sodium 130 mmol/L (135-145)
[2024-06-01 01:17] VITALS: BP 134/75; PULSE 109; RESP 24; TEMP 36.8; O2SAT 95
[2024-06-01] MEDS: Folic Acid 1 MG TABLET PO ×2 (02:00→11:42)
[2024-06-01] MEDS: Magnesium Sulfate/H2O 2 GM/50 ML PIGGYBACK IV ×2 (02:00→06:32)
[2024-06-01] MEDS: Thiamine HCL 100 MG TABLET PO (02:00)
[2024-06-01] MEDS: Calcium Gluconate/NaCl,Iso-Osm 2 GM/100 ML PLAST..BAG IV ×3 (02:03→16:19)
--- NOTE | 2024-06-01 02:11 | PC.NURSE ---
patient medicated per the MAR. aware of plan for admission
--- NOTE | 2024-06-01 03:05 | PM.IMHP ---
History of Present Illness Date of Service: 06/01/24 Attending physician on admission: Hernandez Yang Chief Complaint: Lower extremity weakness, teeth pain Dougie Morejon is a 28 years old man with past medical history significant for alcohol abuse and vitamin-D deficiency presents to the emergency department complaining of walking difficulty that has been getting worse over the last 6 month, tooth ache since yesterday, dry mouth and blood tests in his mouth. He did not report any headache, shortness on breath, chest pain, abdominal pain, nausea, vomiting or diarrhea. He has been using a walker for ambulation. 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 He is not taking any medication. He is supposed to take vitamin-D and calcium. Denied tobacco smoking. Uses marijuana but denied illicit drug use. Last time he drank alcohol was Saturday. 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 In the ED, he was found to have stable vital signs, there is mild tachycardia and fever of 101.7. There is lactic acidosis, 4.0. Blood workup was remarkable for multiple electrolyte imbalances including hyponatremia, hypokalemia, hypomagnesemia and hypocalcemia. Total CK is normal. LFTs are elevated. EtOH level < 10. Viral testing is negative for COVID-19, influenza and RSV. ED tx: NS 2 L bolus, calcium 2 g IV, thiamine 10 mg p.o., Ativan 2 mg PO, Toradol 30 mg IV, acetaminophen 975 mg p.o., ceftriaxone 1 g IV, KCl IV, magnesium 2 g IV. Review of Systems Review of Systems: All 12 systems were reviewed and normal except as noted in HPI. [facility] Medical History Alcoholism Hernia Surgical History H/O gastric sleeve Social History Household Members: Family Housing: House Do you presently have visiting nurse or other home services: No Alcohol intake: current Alcohol type: hard liquor Comment: refusing fall risk intervention. Patient Tobacco Use Status: Never used Tobacco Use of substances other than those prescribed or required for medical reasons: No Substance Use Type: Marijuana Advance Directives: No Advance Directives Information Provided: No Do you have a plan to hurt others: No Plan service: No Meds Allergies Allergy/AdvReac Type Severity Reaction Status Date / Time amoxicillin Allergy Unknown hives Verified 05/31/24 15:39 Penicillins [PENICILLINS] Allergy Unknown ANAPHYLAXIS Verified 05/31/24 15:39 red dye [RED DYE] Allergy Unknown UNKNOWN Verified 05/31/24 15:39 shrimp [SHRIMP] Allergy Unknown UNKNOWN Verified 05/31/24 15:39 Sulfa (Sulfonamide Allergy Unknown hives Verified 05/31/24 15:39 Antibiotics) sulfamethoxazole Allergy Unknown UNKNOWN Verified 05/31/24 15:39 [From BACTRIM] trimethoprim [From BACTRIM] Allergy Unknown UNKNOWN Verified 05/31/24 15:39 Biaxin Allergy Unknown hives Uncoded 05/31/24 15:39 SEAFOOD Allergy Unknown UNKNOWN Uncoded 05/31/24 15:39 Active Medications: Current Medications Enoxaparin Sodium (Enoxaparin Sodium 40 Mg/0.4 Ml Syringe) 40 mg SUBCUT Q24H MICHAEL Folic Acid (Folic Acid 1 Mg Tablet) 1 mg PO DAILY MICHAEL Potassium Chloride (Potassium Chloride/H20) 10 meq in 100 mls @ 100 mls/hr IV Q1H MICHAEL Stop: 06/01/24 04:59 Potassium Chloride/Dextrose/Sod Cl (Kcl 40 Meq In 5% Dex/0.9% Sod) 40 meq in 1,000 mls @ 100 mls/hr IVCONT .Q10H MICHAEL Magnesium Sulfate (Magnesium Sulfate/H2o) 2 gm in 50 mls @ 25 mls/hr IV ONCE STA Stop: 06/01/24 04:51 Ceftriaxone Sodium 1 gm/ (Sodium Chloride) 50 mls @ 100 mls/hr IV Q24H MICHAEL Metronidazole (Flagyl) 500 mg in 100 mls @ 100 mls/hr IV Q8H MICHAEL Thiamine HCl 100 mg/ Sodium (Chloride) 101 mls @ 202 mls/hr IV DAILY MICHAEL Lorazepam (Lorazepam 1 Mg Tablet) 2 mg PO RQ4H WHILE AWAKE PRN PRN Reason: Alcohol Withdrawal Magnesium Oxide (Magnesium Oxide 400 Mg Tablet) 400 mg PO DAILY MICHAEL Multivitamins/Vitamin C (Multivitamin Tablet) 1 tab PO DAILY MICHAEL Sodium Chloride (0.9 % Sodium Chloride Flush 3 Ml Syringe) 3 ml IVFLUSH QSHIFT [facility] Physical Exam Vital Signs and Narrative: Vital Signs: Last Vital Signs Temp 98.3 F 06/01/24 01:17 Pulse 109 H 06/01/24 01:17 Resp 24 H 06/01/24 01:17 BP 134/75 06/01/24 01:17 Pulse Ox 95 06/01/24 01:17 O2 Del Method Room Air 06/01/24 01:17 BMI result Body Mass Index 40.2 Constitutional - Awake and Alert, No apparent distress. Pleasant. Cooperative. Obese. Looks chronically ill. HEEN - PERRLA, EOMI. Very dry oral mucosa and dry lips. Left mandibular area is edematous. One of eft lower molar tooth absent. Oropharynx looks normal. Heart - S1S2, RRR, No edema Lungs - Normal lung expansion, Normal respiratory effort, No respiratory distress, CTA bilaterally Abdomen- NT / ND; +BS; No rebound or guarding - No CVA tenderness Extremities - no calf tenderness bilaterally, no swelling. Bilateral lower extremity tenderness and weakness. Musculoskeletal - Normal inspection, normal ROM Skin - Warm/Dry Neurological - Alert & oriented x3. Psychological - Appropriate affect Results Labs 05/31/24 17:59 06/01/24 00:15 Labs: Laboratory Results - last 24 hr 05/31/24 05/31/24 05/31/24 15:55 17:59 18:26 MCV 100.7 H MCH 37.8 H MCHC 37.5 H RDW 24.8 H Plt Count 269 D MPV 9.2 L Immature Gran % (Auto) Cancelled Neut % (Auto) Cancelled Lymph % (Auto) Cancelled [place] % (Auto) Cancelled Eos % (Auto) Cancelled Baso % (Auto) Cancelled Lymph # (Auto) Cancelled [place] # (Auto) Cancelled Eos # (Auto) Cancelled Baso # (Auto) Cancelled Abs Immat Gran (auto) Cancelled Absolute Neuts (auto) Cancelled Absolute Nucleated RBC 0.780 H Nucleated RBC % (auto) 9.3 H Neutrophils % (Manual) 63 Band Neutrophils % 4 Lymphocytes % (Manual) 22 Atypical Lymphs % (Man) 1 Monocytes % (Manual) 8 Eosinophils % (Manual) 1 Metamyelocytes % 1 Abs Neuts (Manual) 5.6 Lymphocytes # (Manual) 1.8 Atyp Lymphs # (Manual) 0.1 Monocytes # (Manual) 0.7 Eosinophils # (Manual) 0.1 Metamyelocytes # 0.1 Nucleated RBCs 9 H Hypersegmented Neuts PRESENT Smudge Cells PRESENT Toxic Vacuolation PRESENT Platelet Estimate NORMAL Plt Morphology Comment NOTED RBC Morphology NOTED Macrocytosis 1+ (5-14) Tear Drop Cells 1+ (0-2) Stomatocytes 1+ (5-14) ESR 28 H Hold Purple Top Hold Blue Top Anion Gap 23 H Estim Creat Clear Calc 189.4 Estimated GFR > 60 Random Glucose 114 Lactic Acid 4.9 H* Lactic Acid F/U @ 2Hr Lactic Acid F/U @ 4Hr Calcium 6.7 L Magnesium 0.8 L* Total Bilirubin 2.1 H AST 192 H ALT 92 H Alkaline Phosphatase 361 H Total Creatine Kinase C-Reactive Protein 18.85 H Total Protein 6.9 Albumin 3.4 L Urine Color Urine Appearance Urine pH Ur Specific [place] Urine Protein Urine Glucose (UA) Urine Ketones Urine Blood Urine Nitrite Ur Leukocyte Esterase Urine RBC Urine WBC Ur Squamous Epith Cells Urine Bacteria Hyaline Casts Ethyl Alcohol < 10 Influenza Type A (PCR) NEGATIVE Influenza Type B (PCR) NEGATIVE RSV RNA Qual (PCR) NEGATIVE SARS-CoV-2 RNA (RT-PCR) NEGATIVE 05/31/24 05/31/24 05/31/24 18:30 20:41 23:59 MCV MCH MCHC RDW Plt Count MPV Immature Gran % (Auto) Neut % (Auto) Lymph % (Auto) [place] % (Auto) Eos % (Auto) Baso % (Auto) Lymph # (Auto) [place] # (Auto) Eos # (Auto) Baso # (Auto) Abs Immat Gran (auto) Absolute Neuts (auto) Absolute Nucleated RBC Nucleated RBC % (auto) Neutrophils % (Manual) Band Neutrophils % Lymphocytes % (Manual) Atypical Lymphs % (Man) Monocytes % (Manual) Eosinophils % (Manual) Metamyelocytes % Abs Neuts (Manual) Lymphocytes # (Manual) Atyp Lymphs # (Manual) Monocytes # (Manual) Eosinophils # (Manual) Metamyelocytes # Nucleated RBCs Hypersegmented Neuts Smudge Cells Toxic Vacuolation Platelet Estimate Plt Morphology Comment RBC Morphology Macrocytosis Tear Drop Cells Stomatocytes ESR Hold Purple Top SEE NOTE Hold Blue Top SEE NOTE Anion Gap Estim Creat Clear Calc Estimated GFR Random Glucose Lactic Acid Lactic Acid F/U @ 2Hr 3.5 H* Lactic Acid F/U @ 4Hr Calcium Magnesium Total Bilirubin AST ALT Alkaline Phosphatase Total Creatine Kinase C-Reactive Protein Total Protein Albumin Urine Color Dark Yellow Urine Appearance Clear Urine pH 6.0 Ur Specific [place] 1.025 Urine Protein Trace Urine Glucose (UA) Negative Urine Ketones Trace Urine Blood Negative Urine Nitrite Negative Ur Leukocyte Esterase Small (1+) H Urine RBC 3-5 H Urine WBC 0-5 Ur Squamous Epith Cells 3-5 Urine Bacteria None Seen Hyaline Casts 11-20 Ethyl Alcohol Influenza Type A (PCR) Influenza Type B (PCR) RSV RNA Qual (PCR) SARS-CoV-2 RNA (RT-PCR) 06/01/24 00:15 MCV MCH MCHC RDW Plt Count MPV Immature Gran % (Auto) Neut % (Auto) Lymph % (Auto) [place] % (Auto) Eos % (Auto) Baso % (Auto) Lymph # (Auto) [place] # (Auto) Eos # (Auto) Baso # (Auto) Abs Immat Gran (auto) Absolute Neuts (auto) Absolute Nucleated RBC Nucleated RBC % (auto) Neutrophils % (Manual) Band Neutrophils % Lymphocytes % (Manual) Atypical Lymphs % (Man) Monocytes % (Manual) Eosinophils % (Manual) Metamyelocytes % Abs Neuts (Manual) Lymphocytes # (Manual) Atyp Lymphs # (Manual) Monocytes # (Manual) Eosinophils # (Manual) Metamyelocytes # Nucleated RBCs Hypersegmented Neuts Smudge Cells Toxic Vacuolation Platelet Estimate Plt Morphology Comment RBC Morphology Macrocytosis Tear Drop Cells Stomatocytes ESR Hold Purple Top Hold Blue Top Anion Gap 20 Estim Creat Clear Calc 211.3 Estimated GFR > 60 Random Glucose 111 Lactic Acid Lactic Acid F/U @ 2Hr Lactic Acid F/U @ 4Hr 4.0 H* Calcium 5.8 L* D Magnesium 1.2 L* Total Bilirubin AST ALT Alkaline Phosphatase Total Creatine Kinase 114 C-Reactive Protein Total Protein Albumin Urine Color Urine Appearance Urine pH Ur Specific [place] Urine Protein Urine Glucose (UA) Urine Ketones Urine Blood Urine Nitrite Ur Leukocyte Esterase Urine RBC Urine WBC Ur Squamous Epith Cells Urine Bacteria Hyaline Casts Ethyl Alcohol Influenza Type A (PCR) Influenza Type B (PCR) RSV RNA Qual (PCR) SARS-CoV-2 RNA (RT-PCR) Imaging Radiologist's Impressions: Impressions Face CT 05/31/24 19:08 IMPRESSION: 1. No evidence of acute fracture of the maxillofacial bones. 2. Multifocal odontogenic disease, most notably involving the mandibular left 1st molar. Mild soft tissue edema of the outer gums along the left available process of the mandible. No demonstrated discrete drainable fluid collection. 3. Moderately prominent bilateral levels Ib lymph nodes, likely reactive in nature. Electronically signed by: Garo Weaver DO 05/31/2024 09:28 PM EDT Assessment and Plan (1) Acidosis, lactic: Status: Acute (2) Electrolyte imbalance: Status: Acute (3) Acute hypokalemia: Status: Acute (4) Hypomagnesemia: Status: Acute (5) Alcohol abuse: Status: Acute (6) Obesity: Qualifiers: Obesity type: due to excess calories Obesity classification: adult class 3 (BMI >= 40) Serious obesity comorbidity presence: unspecified whether serious comorbidity present Body mass index: BMI 40.0-44.9 Qualified Code(s): E66.813 - Obesity, class 3; E66.01 - Morbid (severe) obesity due to excess calories; Z68.41 - Body mass index [BMI] 40.0-44.9, adult Status: Acute (7) Hypocalcemia: Status: Acute Plan Dougie Morejon is a 28 years old man with past medical history significant for alcohol abuse and vitamin-D deficiency Multiple electrolyte imbalances: hypocalcemia, hypokalemia hypomagnesemia hyponatremia; likely multifactorial: Alcohol abuse, secondary hypoparathyroidism due to vitamin-D deficiency. Admit to hospitalist service. Replete all electrolytes as needed (orally and IV). Continue IV fluids. Continue to monitor electrolytes closely. Check vitamin-D level and PTH. Alcohol abuse. [facility] protocol. Phenobarbital as needed. Continue thiamine, folic acid, magnesium multivitamins. Addiction medicine consult. Fever + SIRS criteria, likely secondary to odontogenic disease. Lactic acidosis secondary to alcohol abuse. Start treatment with ceftriaxone and Flagyl. Continue IV fluids. Blood culture obtained-will follow results. Lactic acidosis, secondary to alcohol abuse. Continue to monitor. Lower extremity weakness. 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 Replete potassium. If patient persists with worsening weakness of the lower extremity to consider a lumbar MRI. History of vitamin-D deficiency. Continue vitamin-D and calcium carbonate. Obese. BMI 40.2 kg/m2. Weight loss. History of gastric sleeve. Microcytic anemia, hemoglobin around baseline. Check vitamin B12 and folate. DVT prophylaxis: Lovenox Code status: Full Patient will need hospitalization for at least 2 midnights for multiple electrolyte imbalances treatment with repletion of this. Patient also will need to be in CIWA protocol and IV antibiotic therapy with for odontogenic disease. Quality Stroke Does the patient have a stroke diagnosis?: No VTE Prior VTE?: No VTE Risk Level:: Medical - moderate - high VTE Device Contraindication: Treatment Not Indicated VTE Drug Contraindication: N/A - Med Ordered
--- NOTE | 2024-06-01 03:09 | PC.NURSE ---
patient placed in hospital bed for comfort, fluids infusing at this time. requesting prn ativan
[2024-06-01] MEDS: LORazepam 1 MG TABLET 2 MG PO (03:13)
[2024-06-01 03:16] LABS: Cancel Lactic Acid Canceled
--- NOTE | 2024-06-01 03:30 | PC.NURSE ---
delay in medication administration d/t lack of pumps and difficulty obtaining medications.
[2024-06-01 04:01] LABS: Thyroid Stimulating Hormone 1.37 uIU/mL (0.32-4.0)
[2024-06-01 05:11] LABS: Hematocrit 22.4 % (42.0-52.0); Hemoglobin 8.3 g/dl (14.0-18.0); Mean Corpuscular HGB Conc 37.1 g/dl (31.0-36.0); Mean Corpuscular Hemoglobin 37.7 pg (27.0-33.0); Mean Corpuscular Volume 101.8 fL (80.0-98.0); Mean Platelet Volume 10.1 fL (9.4-12.4); Platelet Count 211 X10*3/uL (160-400); Red Cell Distribution Width 24.8 % (11.0-16.0)
[2024-06-01 05:13] LABS: NRBC Pct Auto 5.3 /100WBC (0.0-0.2)
[2024-06-01] MEDS: Potassium Chloride/H20 10 MEQ/100 ML PIGGYBACK 100 MEQ IV ×8 (05:21→21:12)
[2024-06-01] MEDS: PHENobarbitaL sodium 130 MG/ML IM ONCE 292 MG IM (05:35)
[2024-06-01 05:46] LABS: Band Neutrophils Percent 7 % (3-5); Eosinophils Absolute Manual 0.1 X10*3/uL (0.0-0.4); Eosinophils Percent Manual 1 % (0-4); Lymphocytes Absolute Manual 1.7 X10*3/uL (1.2-4.9); Lymphocytes Percent Manual 29 % (20-40); Macrocytosis 1+ (5-14) /OIF; Metamyelocytes Absolute 0.1 X10*3/uL; Metamyelocytes Percent 2 %; Monocytes Absolute Manual 0.1 X10*3/uL (0.1-1.2); Monocytes Percent Manual 2 % (2-11); Myelocytes Absolute 0.1 X10*/uL; Myelocytes Percent 1 %; Neutrophils Absolute Manual 3.8 X10*3/uL (2.0-8.3); Neutrophils Percent Manual 57 % (45-73); Nucleated Red Blood Cells 18 /100WBC (0-0); Promyelocytes Absolute 0.1 X10*3/uL; Promyelocytes Percent 1 %; RBC Morphology NOTED
[2024-06-01 05:47] LABS: Acanthocytes 1+ (0-2) /OIF; Platelet Estimate NORMAL (NORMAL); Platelet Morphology Comment NORM; Polychromasia 2+ (3-5) /OIF; Schistocytes 1+ (0-2) /OIF; Smudge Cells PRESENT; Stomatocytes 1+ (5-14) /OIF; Target Cells 2+ (15-30) /OIF; Toxic Vacuolation PRESENT
[2024-06-01 05:49] LABS: Alanine Aminotransferase 74 U/L (0-40); Albumin Level 2.7 g/dL (3.5-5.0); Alkaline Phosphatase 294 U/L (39-117); Anion Gap 17 (12-20); Aspartate Amino Transferase 141 U/L (5-37); Bilirubin Total 1.8 mg/dL (0.0-1.0); Blood Urea Nitrogen 10 mg/dL (9-16); Calcium 6.2 mg/dL (8.4-10.2); Carbon Dioxide 23 mmol/L (22-29); Chloride 92 mmol/L (96-108); Creatinine Clr Calc Pharmacy 227.8; Estimated Glomerular Filt Rate > 60; Glucose Random 97 mg/dL (60-115); Magnesium 1.4 mg/dL (1.6-2.6); Potassium 3.2 mmol/L (3.3-5.1); Sodium 129 mmol/L (135-145); Total Protein 5.7 g/dL (6.5-8.0)
[2024-06-01 05:54] LABS: Vitamin D 25-OH Total 16.2 ng/mL (>30)
--- NOTE | 2024-06-01 05:57 | PC.NURSE ---
patient was found to be increasingly altered, responding to visual hallucinations in the room. provider aware and phenobarb protocol initiated. attempted to start 2nd IV d/t medications being behind, this RN unsuccessful. patient continues to bed arm, constant redirection is needed.
[2024-06-01 06:19] VITALS: BP 152/86; PULSE 118; RESP 22; TEMP 36.8; O2SAT 96
--- NOTE | 2024-06-01 07:34 | PC.NURSE ---
multiple attempts at second iv access unsuccessfully.
[2024-06-01] MEDS: PHENobarbitaL sodium 130 MG/ML VIAL IM Q3Hx2 219 MG IM ×2 (07:51→11:43)
[2024-06-01] MEDS: 0.9 % Sodium Chloride Flush 3 ML SYRINGE IVFLUSH (08:39)
--- NOTE | 2024-06-01 09:59 | PHA.MEDREC ---
Addendum entered by Roya Ospina RPh 06/01/24 10:31: MED RED REVIEWED BY [facility] Original Note: Pharmacy Consult ? Medication Reconciliation Pharmacy has completed the medication reconciliation. Confirmed with patient dad at bedside that patient is not currently taking anything OTC or prescription medications.
--- NOTE | 2024-06-01 11:11 | PC.NURSE ---
Assumed care of this patient at 1100, patient only has one positional IV access, meds significantly delayed, charge Odell made aware, plan for RN Kwaku attempt US line when available.
[2024-06-01] MEDS: Enoxaparin Sodium 40 MG/0.4 ML SYRINGE SUBCUT (11:34)
[2024-06-01 11:35] LABS: Hematocrit 21.4 % (42.0-52.0); Hemoglobin 8.1 g/dl (14.0-18.0)
[2024-06-01] MEDS: Multivitamin TABLET 1 TAB PO (11:42)
[2024-06-01] MEDS: Magnesium Oxide 400 MG TABLET PO (11:42)
[2024-06-01] MEDS: Calcium Carbonate 750 MG TAB.CHEW PO ×2 (11:42→20:40)
[2024-06-01 12:01] LABS: Anion Gap 14 (12-20); Blood Urea Nitrogen 9 mg/dL (9-16); Calcium 6.5 mg/dL (8.4-10.2); Carbon Dioxide 29 mmol/L (22-29); Chloride 91 mmol/L (96-108); Creatinine Clr Calc Pharmacy 251.4; Estimated Glomerular Filt Rate > 60; Glucose Random 100 mg/dL (60-115); Magnesium 1.9 mg/dL (1.6-2.6); Potassium 2.7 mmol/L (3.3-5.1); Sodium 131 mmol/L (135-145)
--- NOTE | 2024-06-01 12:25 | PC.NURSE ---
Recieved critical K of 2.7, mde Dr. Foster aware. Previous order for IV K still infusing, patient not able to swallow PO pills d/t lethargy, will order more IV K.
[2024-06-01 12:32] LABS: Folate 6.8 ng/mL (> or = 4.0); Vitamin B12 685 pg/mL (200-900)
[2024-06-01] MEDS: Thiamine HCL 100 MG in 0.9 % Sodium Chloride 100 ML 202 MG IV (13:03)
--- NOTE | 2024-06-01 13:21 | MHC.CM.PN ---
Attempted to meet with patient in regards to discharge planning. Patient currently sleeping. No family present. Will attempt to meet again. Continue to monitor for d/c needs.
[2024-06-01] MEDS: metroNIDAZOLE/NS 500 MG/100 ML PIGGYBACK 100 MG IV (13:37)
--- NOTE | 2024-06-01 14:19 | PM.EVENT ---
Event Note Date of Service: 06/01/24 Event Note: S somnolent unable to obtain ROS O Temp Pulse Resp BP Pulse Ox O2 Del Method 98.3 F 118 H 22 H 152/86 H 96 Room Air 06/01/24 06:19 06/01/24 06:19 06/01/24 06:19 06/01/24 06:19 06/01/24 06:19 06/01/24 06:19 Gen: somnolent, arousable but falls back asleep immediately HEENT: sclera anicteric, moist mucus membranes Neck: supple Lungs: clear to auscultation bilaterally Heart: tachycardic, no murmurs Abd: soft, non-tender, non-distended Ext: no edema Skin: warm/well-perfused Neuro: somnolent but tremulous Psych: impaired insight Laboratory Results - last 24 hr 05/31/24 05/31/24 05/31/24 15:55 17:59 18:26 WBC 8.4 RBC 2.75 L Hgb 10.4 L Hct 27.7 L MCV 100.7 H MCH 37.8 H MCHC 37.5 H RDW 24.8 H Plt Count 269 D MPV 9.2 L Immature Gran % (Auto) Cancelled Neut % (Auto) Cancelled Lymph % (Auto) Cancelled [place] % (Auto) Cancelled Eos % (Auto) Cancelled Baso % (Auto) Cancelled Lymph # (Auto) Cancelled [place] # (Auto) Cancelled Eos # (Auto) Cancelled Baso # (Auto) Cancelled Abs Immat Gran (auto) Cancelled Absolute Neuts (auto) Cancelled Absolute Nucleated RBC 0.780 H Nucleated RBC % (auto) 9.3 H Neutrophils % (Manual) 63 Band Neutrophils % 4 Lymphocytes % (Manual) 22 Atypical Lymphs % (Man) 1 Monocytes % (Manual) 8 Eosinophils % (Manual) 1 Metamyelocytes % 1 Myelocytes % Promyelocytes % Abs Neuts (Manual) 5.6 Lymphocytes # (Manual) 1.8 Atyp Lymphs # (Manual) 0.1 Monocytes # (Manual) 0.7 Eosinophils # (Manual) 0.1 Metamyelocytes # 0.1 Myelocytes # Promyelocytes # Nucleated RBCs 9 H Hypersegmented Neuts PRESENT Smudge Cells PRESENT Toxic Vacuolation PRESENT Platelet Estimate NORMAL Plt Morphology Comment NOTED RBC Morphology NOTED Polychromasia Macrocytosis 1+ (5-14) Target Cells Tear Drop Cells 1+ (0-2) Stomatocytes 1+ (5-14) Acanthocytes (Spur) Schistocytes ESR 28 H Hold Purple Top Hold Blue Top Sodium 131 L Potassium 2.8 L* Chloride 87 L Carbon Dioxide 24 Anion Gap 23 H BUN 10 Creatinine 0.77 Estim Creat Clear Calc 189.4 Estimated GFR > 60 Random Glucose 114 Lactic Acid 4.9 H* Lactic Acid F/U @ 2Hr Lactic Acid F/U @ 4Hr Calcium 6.7 L Magnesium 0.8 L* Total Bilirubin 2.1 H AST 192 H ALT 92 H Alkaline Phosphatase 361 H Total Creatine Kinase C-Reactive Protein 18.85 H Total Protein 6.9 Albumin 3.4 L Vitamin B12 25-OH Vitamin D Total Folate TSH PTH Intact Urine Color Urine Appearance Urine pH Ur Specific [place] Urine Protein Urine Glucose (UA) Urine Ketones Urine Blood Urine Nitrite Ur Leukocyte Esterase Urine RBC Urine WBC Ur Squamous Epith Cells Urine Bacteria Hyaline Casts Ethyl Alcohol < 10 Influenza Type A (PCR) NEGATIVE Influenza Type B (PCR) NEGATIVE RSV RNA Qual (PCR) NEGATIVE SARS-CoV-2 RNA (RT-PCR) NEGATIVE 05/31/24 05/31/24 05/31/24 18:30 20:41 23:59 WBC RBC Hgb Hct MCV MCH MCHC RDW Plt Count MPV Immature Gran % (Auto) Neut % (Auto) Lymph % (Auto) [place] % (Auto) Eos % (Auto) Baso % (Auto) Lymph # (Auto) [place] # (Auto) Eos # (Auto) Baso # (Auto) Abs Immat Gran (auto) Absolute Neuts (auto) Absolute Nucleated RBC Nucleated RBC % (auto) Neutrophils % (Manual) Band Neutrophils % Lymphocytes % (Manual) Atypical Lymphs % (Man) Monocytes % (Manual) Eosinophils % (Manual) Metamyelocytes % Myelocytes % Promyelocytes % Abs Neuts (Manual) Lymphocytes # (Manual) Atyp Lymphs # (Manual) Monocytes # (Manual) Eosinophils # (Manual) Metamyelocytes # Myelocytes # Promyelocytes # Nucleated RBCs Hypersegmented Neuts Smudge Cells Toxic Vacuolation Platelet Estimate Plt Morphology Comment RBC Morphology Polychromasia Macrocytosis Target Cells Tear Drop Cells Stomatocytes Acanthocytes (Spur) Schistocytes ESR Hold Purple Top SEE NOTE Hold Blue Top SEE NOTE Sodium Potassium Chloride Carbon Dioxide Anion Gap BUN Creatinine Estim Creat Clear Calc Estimated GFR Random Glucose Lactic Acid Lactic Acid F/U @ 2Hr 3.5 H* Lactic Acid F/U @ 4Hr Calcium Magnesium Total Bilirubin AST ALT Alkaline Phosphatase Total Creatine Kinase C-Reactive Protein Total Protein Albumin Vitamin B12 25-OH Vitamin D Total Folate TSH PTH Intact Urine Color Dark Yellow Urine Appearance Clear Urine pH 6.0 Ur Specific [place] 1.025 Urine Protein Trace Urine Glucose (UA) Negative Urine Ketones Trace Urine Blood Negative Urine Nitrite Negative Ur Leukocyte Esterase Small (1+) H Urine RBC 3-5 H Urine WBC 0-5 Ur Squamous Epith Cells 3-5 Urine Bacteria None Seen Hyaline Casts 11-20 Ethyl Alcohol Influenza Type A (PCR) Influenza Type B (PCR) RSV RNA Qual (PCR) SARS-CoV-2 RNA (RT-PCR) 06/01/24 06/01/24 06/01/24 00:15 04:53 11:29 WBC 6.0 RBC 2.20 L Hgb 8.3 L D 8.1 L Hct 22.4 L 21.4 L MCV 101.8 H MCH 37.7 H MCHC 37.1 H RDW 24.8 H Plt Count 211 MPV 10.1 Immature Gran % (Auto) Cancelled Neut % (Auto) Cancelled Lymph % (Auto) Cancelled [place] % (Auto) Cancelled Eos % (Auto) Cancelled Baso % (Auto) Cancelled Lymph # (Auto) Cancelled [place] # (Auto) Cancelled Eos # (Auto) Cancelled Baso # (Auto) Cancelled Abs Immat Gran (auto) Cancelled Absolute Neuts (auto) Cancelled Absolute Nucleated RBC 0.320 H Nucleated RBC % (auto) 5.3 H Neutrophils % (Manual) 57 Band Neutrophils % 7 H Lymphocytes % (Manual) 29 Atypical Lymphs % (Man) Monocytes % (Manual) 2 Eosinophils % (Manual) 1 Metamyelocytes % 2 Myelocytes % 1 Promyelocytes % 1 Abs Neuts (Manual) 3.8 Lymphocytes # (Manual) 1.7 Atyp Lymphs # (Manual) Monocytes # (Manual) 0.1 Eosinophils # (Manual) 0.1 Metamyelocytes # 0.1 Myelocytes # 0.1 Promyelocytes # 0.1 Nucleated RBCs 18 H Hypersegmented Neuts Smudge Cells PRESENT Toxic Vacuolation PRESENT Platelet Estimate NORMAL Plt Morphology Comment NORM RBC Morphology NOTED Polychromasia 2+ (3-5) Macrocytosis 1+ (5-14) Target Cells 2+ (15-30) Tear Drop Cells Stomatocytes 1+ (5-14) Acanthocytes ([place]) 1+ (0-2) Schistocytes 1+ (0-2) ESR Hold Purple Top Hold Blue Top Sodium 130 L 129 L 131 L Potassium 2.5 L* 3.2 L D 2.7 L* Chloride 91 L 92 L 91 L Carbon Dioxide 22 23 29 Anion Gap 20 17 14 BUN 10 10 9 Creatinine 0.69 0.64 0.58 Estim Creat Clear Calc 211.3 227.8 251.4 Estimated GFR > 60 > 60 > 60 Random Glucose 111 97 100 Lactic Acid Lactic Acid F/U @ 2Hr Lactic Acid F/U @ 4Hr 4.0 H* Calcium 5.8 L* D 6.2 L D 6.5 L Magnesium 1.2 L* 1.4 L* 1.9 Total Bilirubin 1.8 H AST 141 H ALT 74 H Alkaline Phosphatase 294 H Total Creatine Kinase 114 C-Reactive Protein Total Protein 5.7 L Albumin 2.7 L Vitamin B12 685 25-OH Vitamin D Total 16.2 L Folate 6.8 TSH 1.37 PTH Intact 83.0 H Urine Color Urine Appearance Urine pH Ur Specific [place] Urine Protein Urine Glucose (UA) Urine Ketones Urine Blood Urine Nitrite Ur Leukocyte Esterase Urine RBC Urine WBC Ur Squamous Epith Cells Urine Bacteria Hyaline Casts Ethyl Alcohol Influenza Type A (PCR) Influenza Type B (PCR) RSV RNA Qual (PCR) SARS-CoV-2 RNA (RT-PCR) A/P d1; 28yo M with AUD + vit D deficiency with secondary hyperPTH presenting with progressive difficulty walking x 6mo, 1d hx of toothache, hx withdrawal found to be febrile + tachycardic with lactic acidosis, hypoNa, hypoK, hypomg, hypoCa; EtOH withdrawal hypoK hypoCa - replete IV, recheck levels at 1800 and again in AM hypoMg - repleted hypoNa - improving with fluid resuscitation AUD with withdrawal - phenobarbital taper, thiamine, folic acid, Addiction Medicine consult odontogenic infection - ceftriaxone + metronidazole 06/01-, outpt dental followup lactic acidosis - due to alcohol, not sepsis vit D deficiency secondary hyperPTH - replete vitamin D macrocytic anemia - B12/FA normal; likely due to EtOH-induced myelosuppression; monitor CBC morbid obesity - diet/exercise counseling VTE prophylaxis - enoxaparin dispo - TBD In my clinical judgment, the patient requires continued inpatient hospitalization for the following reasons: multiple electrolyte deficiencies Time Spent With Patient Time: Total time managing care of this patient today ____ minutes.
[2024-06-01 14:50] VITALS: BMI 42.9
[2024-06-01 15:00] VITALS: BP 155/88; PULSE 98; RESP 20; TEMP 36.6; O2SAT 98
[2024-06-01] MEDS: Lactated Ringers 1,000 ML 125 ML IVCONT (15:54)
[2024-06-01 18:54] LABS: Anion Gap 17 (12-20); Blood Urea Nitrogen 8 mg/dL (9-16); Calcium 7.9 mg/dL (8.4-10.2); Carbon Dioxide 24 mmol/L (22-29); Chloride 95 mmol/L (96-108); Creatinine Clr Calc Pharmacy 265.2; Estimated Glomerular Filt Rate > 60; Glucose Random 119 mg/dL (60-115); Potassium 3.2 mmol/L (3.3-5.1); Sodium 133 mmol/L (135-145)
[2024-06-01 19:29] VITALS: BP 146/92; PULSE 120; RESP 18; TEMP 37.2; O2SAT 97
[2024-06-01] MEDS: PHENobarbitaL 15 MG TABLET 45 MG PO (20:39)
[2024-06-01] MEDS: Acetaminophen 325 MG TABLET 650 MG PO (20:39)
[2024-06-01] MEDS: ondansetron HCL 4 MG/2 ML VIAL IVPUSH (21:43)
[2024-06-02] VITALS: BP 170/90; PULSE 101; RESP 20; TEMP 36.7; O2SAT 92
[2024-06-02] MEDS: cefTRIAXone sodium 1 GM in 0.9 % Sodium Chloride 50 ML IV (00:27)
[2024-06-02] MEDS: metroNIDAZOLE/NS 500 MG/100 ML PIGGYBACK 100 MG IV ×3 (01:30→17:08)
[2024-06-02] MEDS: Lactated Ringers 1,000 ML 125 ML IVCONT ×2 (01:30→12:43)
[2024-06-02] MEDS: 0.9 % Sodium Chloride Flush 3 ML SYRINGE IVFLUSH (01:45)
[2024-06-02 03:53] VITALS: BP 124/94; PULSE 100; RESP 20; TEMP 36.6; O2SAT 92
[2024-06-02 06:50] LABS: Hemoglobin 7.6 g/dl (14.0-18.0); Mean Corpuscular HGB Conc 36.7 g/dl (31.0-36.0); Mean Corpuscular Hemoglobin 38.4 pg (27.0-33.0); Mean Corpuscular Volume 104.5 fL (80.0-98.0); Platelet Count 229 X10*3/uL (160-400); Red Blood Count 1.98 X10*6/uL (4.60-5.80); Red Cell Distribution Width 25.5 % (11.0-16.0); White Blood Count 5.4 X10*3/uL (4.8-10.8)
[2024-06-02 07:18] VITALS: BP 132/78; PULSE 95; RESP 18; TEMP 36.3; O2SAT 94
[2024-06-02 07:19] LABS: Hematocrit 20.7 % (42.0-52.0); NRBC Pct Auto 6.3 /100WBC (0.0-0.2)
[2024-06-02 07:36] LABS: Alanine Aminotransferase 57 U/L (0-40); Albumin Level 2.6 g/dL (3.5-5.0); Alkaline Phosphatase 260 U/L (39-117); Anion Gap 12 (12-20); Aspartate Amino Transferase 94 U/L (5-37); Bilirubin Total 1.6 mg/dL (0.0-1.0); Blood Urea Nitrogen 7 mg/dL (9-16); Calcium 7.3 mg/dL (8.4-10.2); Carbon Dioxide 29 mmol/L (22-29); Chloride 97 mmol/L (96-108); Creatinine Clr Calc Pharmacy 296.4; Estimated Glomerular Filt Rate > 60; Glucose Random 85 mg/dL (60-115); Magnesium 1.7 mg/dL (1.6-2.6); Potassium 2.8 mmol/L (3.3-5.1); Sodium 135 mmol/L (135-145); Total Protein 5.2 g/dL (6.5-8.0)
[2024-06-02] MEDS: Potassium Chloride/H20 10 MEQ/100 ML PIGGYBACK 100 MEQ IV ×4 (07:45→11:48)
[2024-06-02 07:57] LABS: Immature Retic Fraction 38.5 % (2.3-13.4); Retic HGB Equivalent 42.8 pg (30.0-35.0); Reticulocytes Absolute 0.126 X10*6/uL (0.026-0.095)
[2024-06-02 07:58] LABS: Reticulocyte Percent 6.2 % (0.5-1.8)
[2024-06-02 08:13] LABS: Iron 111 mcg/dL (45-160); Lactate Dehydrogenase 458 U/L (118-273); Percent Iron Saturation 77 % (15-50); Total Iron Binding Capacity 144 mcg/dL (228-428); Unsaturated Iron Binding 33 ug/dL
[2024-06-02 08:21] LABS: Ferritin 737 ng/mL (20-250)
[2024-06-02] MEDS: Calcium Carbonate 750 MG TAB.CHEW PO ×2 (08:25→21:17)
[2024-06-02] MEDS: Magnesium Oxide 400 MG TABLET PO (08:25)
[2024-06-02] MEDS: PHENobarbitaL 15 MG TABLET 45 MG PO ×2 (08:25→21:17)
[2024-06-02] MEDS: Folic Acid 1 MG TABLET PO (08:26)
[2024-06-02] MEDS: Potassium Chloride ER 20 MEQ TAB.ER.PRT 40 MEQ PO (08:26)
[2024-06-02] MEDS: Enoxaparin Sodium 40 MG/0.4 ML SYRINGE SUBCUT (08:32)
[2024-06-02] MEDS: Multivitamin TABLET 1 TAB PO (08:32)
[2024-06-02] MEDS: Thiamine HCL 100 MG in 0.9 % Sodium Chloride 100 ML 202 MG IV (08:37)
--- NOTE | 2024-06-02 09:06 | MHC.CM.PN ---
CM met with Patient at bedside. Patient lives in a house with his Father and Grandmother and he uses a cane to assist with mobility. Patient may benefit from a PT EVAL to assist with disposition (documented to be a 2 assist). CM has initiated and will follow for dc planning. Patient has no insurance and in turn, no PCP; CM has made a referral to [facility]. Patient's Father will transport to home.
[2024-06-02] MEDS: Nystatin Powder 15 GM BOTTLE 1 APPL TOPICAL ×2 (09:07→21:00)
--- NOTE | 2024-06-02 10:46 | P.PNIM_ITS ---
Subjective Subjective Date of Service: 06/02/24 Interval History: more awake/alert c/o oral pain BCx with GNRs Review of Systems Review of Systems: Yes all other systems are reviewed and are negative Physical Exam 2 Vital Signs: Vital Signs: Last Vital Signs Temp 97.3 F 06/02/24 07:18 Pulse 95 06/02/24 07:18 Resp 18 06/02/24 07:18 BP 132/78 06/02/24 07:18 Pulse Ox 94 06/02/24 07:18 O2 Del Method Room Air 06/02/24 07:18 BMI result Body Mass Index 42.9 Gen: in no acute distress HEENT: sclera anicteric, moist mucus membranes with irritated gums Neck: supple Lungs: clear to auscultation bilaterally Heart: regular rate and rhythm, no murmurs Abd: soft, non-tender, non-distended Ext: no edema Skin: warm/well-perfused Neuro: alert and oriented x3, no focal findings Psych: appropriate affect Objective Data Active Medications Acetaminophen (Acetaminophen 325 Mg Tablet) 650 mg PO Q4H PRN PRN Reason: Pain, Mild (Pain Scale 1-3) Last Admin: 06/01/24 20:39 Dose: 650 mg Documented By: VICKIE Calcium Carbonate (Calcium Carbonate 750 Mg Tab.Chew) 750 mg PO BID [facility] Last Admin: 06/02/24 08:25 Dose: 750 mg Documented By: MARCELO Enoxaparin Sodium (Enoxaparin Sodium 40 Mg/0.4 Ml Syringe) 40 mg SUBCUT Q24H [facility] Last Admin: 06/02/24 08:32 Dose: 40 mg Documented By: MARCELO Ergocalciferol (Ergocalciferol (Vitamin D2) 1,250 Mcg Capsule) 1,250 mcg PO Mo@0900 [facility] Last Admin: 06/01/24 12:24 Dose: Not Given Documented By: COMPA Non-Admin Reason: Med Not Available Folic Acid (Folic Acid 1 Mg Tablet) 1 mg PO DAILY [facility] Last Admin: 06/02/24 08:26 Dose: 1 mg Documented By: MARCELO Thiamine HCl 100 mg/ Sodium (Chloride) 101 mls @ 202 mls/hr IV DAILY [facility] Last Infusion: 06/02/24 09:07 Dose: Infused Documented By: MARCELO Lactated Ringer's (Lr) 1,000 mls @ 125 mls/hr IVCONT .Q8H [facility] Last Admin: 06/02/24 06:43 Dose: Not Given Documented By: VICKIE Non-Admin Reason: IV Running Ceftriaxone Sodium 2 gm/ (Sodium Chloride) 50 mls @ 100 mls/hr IV Q24H [facility] Metronidazole (Flagyl) 500 mg in 100 mls @ 100 mls/hr IV Q8H [facility] Last Admin: 06/02/24 09:50 Dose: 100 mls/hr Documented By: MARCELO Potassium Chloride (Potassium Chloride/H20) 10 meq in 100 mls @ 100 mls/hr IV Q1H [facility] Stop: 06/02/24 11:29 Last Admin: 06/02/24 10:19 Dose: 100 mls/hr Documented By: MARCELO Lorazepam (Lorazepam 1 Mg Tablet) 2 mg PO RQ4H WHILE AWAKE PRN PRN Reason: Alcohol Withdrawal Last Admin: 06/01/24 03:13 Dose: 2 mg Documented By: JOSEPH Magnesium Oxide (Magnesium Oxide 400 Mg Tablet) 400 mg PO DAILY [facility] Last Admin: 06/02/24 08:25 Dose: 400 mg Documented By: MARCELO Multivitamins/Vitamin C (Multivitamin Tablet) 1 tab PO DAILY [facility] Last Admin: 06/02/24 08:32 Dose: 1 tab Documented By: MARCELO Nystatin (Nystatin Powder 15 Gm Bottle) 1 appl TOPICAL BID [facility]; Protocol Last Admin: 06/02/24 09:07 Dose: 1 appl Documented By: MARCELO Ondansetron HCl (Ondansetron Hcl 4 Mg/2 Ml Vial) 4 mg IVPUSH Q6H PRN PRN Reason: Nausea and Vomiting Last Admin: 06/01/24 21:43 Dose: 4 mg Documented By: VICKIE Phenobarbital (Phenobarbital 15 Mg Tablet) 45 mg PO BID [facility]; Protocol Stop: 06/03/24 09:01 Last Admin: 06/02/24 08:25 Dose: 45 mg Documented By: MARCELO Phenobarbital (Phenobarbital 15 Mg Tablet) 15 mg PO BID [facility]; Protocol Stop: 06/05/24 09:01 Phenobarbital (Phenobarbital 15 Mg Tablet) 15 mg PO DAILY [facility]; Protocol Stop: 06/07/24 09:01 Sodium Chloride (0.9 % Sodium Chloride Flush 3 Ml Syringe) 3 ml IVFLUSH QSHIFT [facility] Last Admin: 06/02/24 08:26 Dose: Not Given Documented By: MARCELO Non-Admin Reason: IV Running Labs 06/02/24 05:58 06/02/24 05:58 Labs: Laboratory Results - last 24 hr 06/01/24 06/01/24 06/02/24 11:29 18:22 05:58 MCV 104.5 H MCH 38.4 H MCHC 36.7 H RDW 25.5 H Plt Count 229 MPV 10.0 Absolute Nucleated RBC 0.340 H Nucleated RBC % (auto) 6.3 H Absolute Retic 0.126 H Percent Retic 6.2 H Immature Retic Fraction 38.5 H Retic Hgb Equivalent 42.8 H Anion Gap 14 17 12 Estim Creat Clear Calc 251.4 265.2 296.4 Estimated GFR > 60 > 60 > 60 Random Glucose 100 119 H 85 Calcium 6.5 L 7.9 L D 7.3 L D Magnesium 1.9 1.7 Iron 111 TIBC 144 L % Saturation 77 H Unsat Iron Binding 33 Ferritin 737 H Total Bilirubin 1.6 H AST 94 H ALT 57 H Alkaline Phosphatase 260 H Lactate Dehydrogenase 458 H Total Protein 5.2 L Albumin 2.6 L Vitamin B12 685 Folate 6.8 Microbiology Microbiology Results: Microbiology 06/01/24 Unknown Urine Culture - Final Urine clean catch - Clean Catch Midstream 05/31/24 18:26 Blood Culture - Preliminary Blood - Venous Prelim: GNR Gram Stain only 05/31/24 18:26 Blood Culture - Preliminary Blood - Venous No growth after 24 hours. Assessment and Plan (1) Alcohol abuse: Status: Acute Plan d2 for this 28yo M with AUD + vit D deficiency with secondary hyperPTH presenting with progressive difficulty walking x 6mo, 1d hx of toothache, hx withdrawal found to be febrile + tachycardic with lactic acidosis, hypoNa, hypoK, hypomg, hypoCa; EtOH withdrawal odontogenic infection GNR bacteremia - ceftriaxone + metronidazole 06/01-, outpt dental followup, follow BCx speciation/susceptibilities macrocytic anemia - possible hemolysis; order workup with CASSANDRA, haptoglobin, path review smear; repeat CBC; may need Heme consultation hypoK - replete IV/PO, recheck level at 1300 hypoCa hypoMg - repleted hypoNa - resolved with fluid resuscitation AUD with withdrawal - phenobarbital taper, thiamine, folic acid, Addiction Medicine consult lactic acidosis - due to alcohol, not sepsis vit D deficiency secondary hyperPTH - replete vitamin D morbid obesity - diet/exercise counseling VTE prophylaxis - hold enoxaparin due to severe anemia; place SCDs dispo - TBD In my clinical judgment, the patient requires continued inpatient hospitalization for the following reasons: multiple electrolyte deficiencies, IV ABX Total time managing care of this patient today: 45 minutes. Quality Stroke Does the patient have a stroke diagnosis?: No VTE Prior VTE?: No VTE Risk Level:: Medical - moderate - high VTE Device Contraindication: Treatment Not Indicated VTE Drug Contraindication: N/A - Med Ordered
[2024-06-02 11:07] VITALS: BP 129/69; PULSE 109; RESP 18; TEMP 36.8; O2SAT 92
--- NOTE | 2024-06-02 12:41 | MHC.CM.PN ---
Patient has Medicaid ([id number]).
[2024-06-02 13:36] LABS: Hematocrit 22.7 % (42.0-52.0); Hemoglobin 8.1 g/dl (14.0-18.0)
--- NOTE | 2024-06-02 14:12 | MHC.RECOVRN ---
AUDIT-C Brief Intervention Pt had positive screen for unhealthy alcohol use on admission, subsequently met with t/w to discuss alcohol use and recovery supports/options. This rfp writer met with patient to discuss current alcohol use and concerns related to increased risk of alcohol related problems.? Pt reports 1.75 liters of vodka every 2 days x 8 months. Prior to that pt reports 1.5 month period of recovery. Pt reports he began drinking around age 15. Reports family hx of AUD (mom). Discussed how alcohol use has impacted health, including negative impact on overall physical wellbeing, including resulting electrolyte imbalances. Withdrawal History: denies hx of withdrawal seizures Treatment History: denies treatment for AUD in the past, this is second alcohol use related hospitalization Supports:?parents Discussed risk reduction strategies including drinking below the recommended limit. Provided pt with written resources including information on inpatient and outpatient treatment, JO[facility] ALBERTO, harm reduction, and recovery coaching. Pt is interested in disulfiram and following up with the [facility]. Pt provided with t/w contact information if questions or concerns arise. Denies other questions or concerns at this time.? Discussed with Amena Connors APRN.
[2024-06-02 14:17] LABS: Haptoglobin 152 mg/dL (14-258)
[2024-06-02] MEDS: LORazepam 1 MG TABLET 2 MG PO (14:22)
[2024-06-02 14:23] LABS: Anion Gap 13 (12-20); Blood Urea Nitrogen 7 mg/dL (9-16); Calcium 7.5 mg/dL (8.4-10.2); Carbon Dioxide 29 mmol/L (22-29); Chloride 96 mmol/L (96-108); Creatinine Clr Calc Pharmacy 260.7; Estimated Glomerular Filt Rate > 60; Glucose Random 94 mg/dL (60-115); Magnesium 1.7 mg/dL (1.6-2.6); Potassium 3.9 mmol/L (3.3-5.1); Sodium 134 mmol/L (135-145)
[2024-06-02] MEDS: OLANZapine 5 MG TABLET PO (14:44)
[2024-06-02 15:24] VITALS: BP 160/72; PULSE 111; RESP 18; TEMP 37; O2SAT 92
[2024-06-02 19:52] VITALS: BP 127/71; PULSE 106; RESP 20; TEMP 37.3; O2SAT 97
[2024-06-02] MEDS: cefTRIAXone sodium 2 GM in 0.9 % Sodium Chloride 50 ML IV (21:25)
[2024-06-03] VITALS (7 sets, daily range): BP systolic 134–177; BP diastolic 70–95; PULSE 96–107; RESP 16–20; TEMP 36.3–37.7; O2SAT 95–98
[2024-06-03] MEDS: 0.9 % Sodium Chloride Flush 3 ML SYRINGE IVFLUSH
[2024-06-03] MEDS: Lactated Ringers 1,000 ML 125 ML IVCONT ×2 (02:27→13:06)
[2024-06-03] MEDS: metroNIDAZOLE/NS 500 MG/100 ML PIGGYBACK 100 MG IV ×3 (02:29→17:09)
[2024-06-03] MEDS: LORazepam 1 MG TABLET 2 MG PO (02:37)
[2024-06-03 06:06] LABS: Hematocrit 23.2 % (42.0-52.0); Hemoglobin 8.1 g/dl (14.0-18.0); Mean Corpuscular HGB Conc 34.9 g/dl (31.0-36.0); Mean Corpuscular Hemoglobin 37.5 pg (27.0-33.0); Mean Corpuscular Volume 107.4 fL (80.0-98.0); Mean Platelet Volume 9.5 fL (9.4-12.4); Platelet Count 284 X10*3/uL (160-400); Red Blood Count 2.16 X10*6/uL (4.60-5.80); White Blood Count 6.8 X10*3/uL (4.8-10.8)
[2024-06-03 06:15] LABS: NRBC Pct Auto 6.6 /100WBC (0.0-0.2)
[2024-06-03 06:20] LABS: Alanine Aminotransferase 51 U/L (0-40); Albumin Level 2.6 g/dL (3.5-5.0); Alkaline Phosphatase 254 U/L (39-117); Anion Gap 14 (12-20); Aspartate Amino Transferase 82 U/L (5-37); Bilirubin Total 1.4 mg/dL (0.0-1.0); Blood Urea Nitrogen 6 mg/dL (9-16); C Reactive Protein 11.39 mg/dL (< or = 0.50); Calcium 7.3 mg/dL (8.4-10.2); Carbon Dioxide 27 mmol/L (22-29); Chloride 100 mmol/L (96-108); Creatinine Clr Calc Pharmacy 296.4; Estimated Glomerular Filt Rate > 60; Glucose Random 85 mg/dL (60-115); Magnesium 1.7 mg/dL (1.6-2.6); Potassium 3.6 mmol/L (3.3-5.1); Sodium 137 mmol/L (135-145); Total Protein 5.3 g/dL (6.5-8.0)
[2024-06-03 06:30] LABS: INTERNATIONAL NORM RATIO 1.1 (0.9-1.1)
[2024-06-03] MEDS: Magnesium Oxide 400 MG TABLET PO (07:50)
[2024-06-03] MEDS: Calcium Carbonate 750 MG TAB.CHEW PO ×2 (07:50→21:12)
[2024-06-03] MEDS: Multivitamin TABLET 1 TAB PO (07:51)
[2024-06-03] MEDS: Thiamine HCL 100 MG in 0.9 % Sodium Chloride 100 ML 202 MG IV (07:51)
[2024-06-03] MEDS: Folic Acid 1 MG TABLET PO (07:51)
[2024-06-03] MEDS: Nystatin Powder 15 GM BOTTLE 1 APPL TOPICAL ×2 (07:51→23:38)
[2024-06-03] MEDS: PHENobarbitaL 15 MG TABLET 45 MG PO (07:51)
--- NOTE | 2024-06-03 11:21 | HO.PM.IMPN ---
Subjective Subjective Date of Service: 06/03/24 Interval History: hallucinations resolved electrolytes improved somewhat tremulous Review of Systems Review of Systems: Yes all other systems are reviewed and are negative Physical Exam Vital Signs: Vital Signs: Last Vital Signs Temp 98.3 F 06/03/24 11:02 Pulse 96 06/03/24 11:02 Resp 20 06/03/24 11:02 BP 137/95 H 06/03/24 11:02 Pulse Ox 96 06/03/24 11:02 O2 Del Method Room Air 06/03/24 11:02 BMI result Body Mass Index 42.9 Gen: in no acute distress HEENT: sclera anicteric, moist mucus membranes with irritated gums Neck: supple Lungs: clear to auscultation bilaterally Heart: regular rate and rhythm, no murmurs Abd: soft, non-tender, non-distended, obese Ext: no edema Skin: warm/well-perfused Neuro: alert and oriented x3, no focal findings Psych: appropriate affect Objective Data Active Medications Acetaminophen (Acetaminophen 325 Mg Tablet) 650 mg PO Q4H PRN PRN Reason: Pain, Mild (Pain Scale 1-3) Last Admin: 06/01/24 20:39 Dose: 650 mg Documented By: VICKIE Calcium Carbonate (Calcium Carbonate 750 Mg Tab.Chew) 750 mg PO BID [facility] Last Admin: 06/03/24 07:50 Dose: 750 mg Documented By: MARCELO Enoxaparin Sodium (Enoxaparin Sodium 40 Mg/0.4 Ml Syringe) 40 mg SUBCUT Q24H [facility] Last Admin: 06/02/24 08:32 Dose: 40 mg Documented By: MARCELO Ergocalciferol (Ergocalciferol (Vitamin D2) 1,250 Mcg Capsule) 1,250 mcg PO Mo@0900 [facility] Last Admin: 06/01/24 12:24 Dose: Not Given Documented By: DITOLC Non-Admin Reason: Med Not Available Folic Acid (Folic Acid 1 Mg Tablet) 1 mg PO DAILY [facility] Last Admin: 06/03/24 07:51 Dose: 1 mg Documented By: MARCELO Thiamine HCl 100 mg/ Sodium (Chloride) 101 mls @ 202 mls/hr IV DAILY [facility] Last Infusion: 06/03/24 08:21 Dose: Infused Documented By: MARCELO Lactated Ringer's (Lr) 1,000 mls @ 125 mls/hr IVCONT .Q8H [facility] Last Admin: 06/03/24 10:59 Dose: Not Given Documented By: MARCELO Non-Admin Reason: IV Running Ceftriaxone Sodium 2 gm/ (Sodium Chloride) 50 mls @ 100 mls/hr IV Q24H [facility] Last Infusion: 06/02/24 21:55 Dose: Infused Documented By: VICKIE Metronidazole (Flagyl) 500 mg in 100 mls @ 100 mls/hr IV Q8H [facility] Last Admin: 06/03/24 10:59 Dose: 100 mls/hr Documented By: MARCELO Lidocaine/Diphenhydr/Alum/Mg/Simeth (Mag&Al/Sim/Diphenhyd/Lidocaine 10 Ml Oral.Susp) 10 ml PO Q4H PRN; Protocol PRN Reason: mouth pain Lorazepam (Lorazepam 1 Mg Tablet) 2 mg PO RQ4H WHILE AWAKE PRN PRN Reason: Alcohol Withdrawal Last Admin: 06/03/24 02:37 Dose: 2 mg Documented By: VICKIE Magnesium Oxide (Magnesium Oxide 400 Mg Tablet) 400 mg PO DAILY [facility] Last Admin: 06/03/24 07:50 Dose: 400 mg Documented By: MARCELO Multivitamins/Vitamin C (Multivitamin Tablet) 1 tab PO DAILY [facility] Last Admin: 06/03/24 07:51 Dose: 1 tab Documented By: MARCELO Nystatin (Nystatin Powder 15 Gm Bottle) 1 appl TOPICAL BID [facility]; Protocol Last Admin: 06/03/24 07:51 Dose: 1 appl Documented By: MARCELO Ondansetron HCl (Ondansetron Hcl 4 Mg/2 Ml Vial) 4 mg IVPUSH Q6H PRN PRN Reason: Nausea and Vomiting Last Admin: 06/01/24 21:43 Dose: 4 mg Documented By: VICKIE Phenobarbital (Phenobarbital 15 Mg Tablet) 15 mg PO BID [facility]; Protocol Stop: 06/05/24 09:01 Phenobarbital (Phenobarbital 15 Mg Tablet) 15 mg PO DAILY [facility]; Protocol Stop: 06/07/24 09:01 Sodium Chloride (0.9 % Sodium Chloride Flush 3 Ml Syringe) 3 ml IVFLUSH QSHIFT ON [facility] OF [facility] Last Admin: 06/03/24 07:54 Dose: Not Given Documented By: MARCELO Non-Admin Reason: IV Running Labs 06/03/24 05:51 06/03/24 05:51 Labs: Laboratory Results - last 24 hr 06/02/24 06/03/24 13:23 05:51 MCV 107.4 H MCH 37.5 H MCHC 34.9 RDW 26.0 H Plt Count 284 MPV 9.5 Absolute Nucleated RBC 0.450 H Nucleated RBC % (auto) 6.6 H Smear Path Review SEE NOTE PT 13.0 H INR 1.1 Anion Gap 13 14 Estim Creat Clear Calc 260.7 296.4 Estimated GFR > 60 > 60 Random Glucose 94 85 Haptoglobin 152 Calcium 7.5 L 7.3 L Magnesium 1.7 1.7 Total Bilirubin 1.4 H AST 82 H ALT 51 H Alkaline Phosphatase 254 H C-Reactive Protein 11.39 H Total Protein 5.3 L Albumin 2.6 L Blood Type O Positive Antibody Screen NEGATIVE CASSANDRA, Polyspecific NEGATIVE Positive CASSANDRA Work-up TNP Microbiology Microbiology Results: Microbiology 05/31/24 18:26 Blood Culture - Preliminary Blood - Venous No growth after 48 hours. 06/01/24 Unknown Urine Culture - Final Urine clean catch - Clean Catch Midstream 05/31/24 18:26 Blood Culture - Preliminary Blood - Venous Prelim: GNR Gram Stain only Assessment and Plan (1) Alcohol abuse: Status: Acute Plan d3 for this 28yo M with AUD + vit D deficiency with secondary hyperPTH presenting with progressive difficulty walking x 6mo, 1d hx of toothache, hx withdrawal found to be febrile + tachycardic with lactic acidosis, hypoNa, hypoK, hypomg, hypoCa; EtOH withdrawal odontogenic infection GNR bacteremia - ceftriaxone + metronidazole 06/01-, outpt dental followup, follow BCx speciation/susceptibilities macrocytic anemia - possible hemolysis; CASSANDRA negative, haptoglobin + path review smear resolving; H+H stable hypoK hypoCa hypoMg - repleted hypoNa - resolved with fluid resuscitation AUD with withdrawal - phenobarbital taper, thiamine, folic acid, Addiction Medicine consult lactic acidosis - due to alcohol, not sepsis vit D deficiency secondary hyperPTH - replete vitamin D morbid obesity - diet/exercise counseling VTE prophylaxis - hold enoxaparin due to severe anemia; place SCDs dispo - TBD In my clinical judgment, the patient requires continued inpatient hospitalization for the following reasons: EtOH withdrawal, IV ABX Total time managing care of this patient today: 45 minutes. Quality Stroke Does the patient have a stroke diagnosis?: No VTE Prior VTE?: No VTE Risk Level:: Medical - moderate - high VTE Device Contraindication: Treatment Not Indicated VTE Drug Contraindication: N/A - Med Ordered
[2024-06-03] MEDS: Acetaminophen 325 MG TABLET 650 MG PO ×2 (17:11→21:12)
[2024-06-03 17:21] LABS: OBS Int Ctl Valid YES; OBS1 NEGATIVE (NEGATIVE)
[2024-06-03] MEDS: PHENobarbitaL 15 MG TABLET PO (21:12)
[2024-06-03] MEDS: cefTRIAXone sodium 2 GM in 0.9 % Sodium Chloride 50 ML IV (21:13)
[2024-06-04] MEDS: Lactated Ringers 1,000 ML 125 ML IVCONT (00:29)
[2024-06-04] MEDS: PHENobarbitaL sodium 130 MG/ML VIAL IM (00:49)
[2024-06-04] MEDS: metroNIDAZOLE/NS 500 MG/100 ML PIGGYBACK 100 MG IV ×3 (02:20→17:08)
[2024-06-04 03:32] VITALS: BP 132/64; PULSE 110; RESP 20; TEMP 36.7; O2SAT 91
[2024-06-04 06:46] LABS: Hematocrit 23.1 % (42.0-52.0); Hemoglobin 8.1 g/dl (14.0-18.0); Mean Corpuscular HGB Conc 35.1 g/dl (31.0-36.0); Mean Corpuscular Hemoglobin 37.3 pg (27.0-33.0); Mean Corpuscular Volume 106.5 fL (80.0-98.0); Mean Platelet Volume 9.3 fL (9.4-12.4); Platelet Count 321 X10*3/uL (160-400); Red Blood Count 2.17 X10*6/uL (4.60-5.80); Red Cell Distribution Width 26.4 % (11.0-16.0); White Blood Count 6.8 X10*3/uL (4.8-10.8)
[2024-06-04 06:54] LABS: NRBC Pct Auto 5.4 /100WBC (0.0-0.2)
[2024-06-04 07:01] LABS: Anion Gap 14 (12-20); Blood Urea Nitrogen 6 mg/dL (9-16); Calcium 7.3 mg/dL (8.4-10.2); Carbon Dioxide 26 mmol/L (22-29); Chloride 101 mmol/L (96-108); Estimated Glomerular Filt Rate > 60; Glucose Random 81 mg/dL (60-115); Magnesium 1.6 mg/dL (1.6-2.6); Potassium 3.5 mmol/L (3.3-5.1); Sodium 137 mmol/L (135-145)
[2024-06-04 07:14] VITALS: BP 141/86; PULSE 100; RESP 20; TEMP 36.6; O2SAT 98
[2024-06-04] MEDS: Magnesium Oxide 400 MG TABLET PO (10:41)
[2024-06-04] MEDS: Folic Acid 1 MG TABLET PO (10:41)
[2024-06-04] MEDS: Multivitamin TABLET 1 TAB PO (10:41)
[2024-06-04] MEDS: Calcium Carbonate 750 MG TAB.CHEW PO ×2 (10:41→20:20)
[2024-06-04] MEDS: PHENobarbitaL 15 MG TABLET PO ×2 (10:41→20:21)
[2024-06-04] MEDS: Acetaminophen 325 MG TABLET 650 MG PO (10:42)
--- NOTE | 2024-06-04 10:50 | P.PNADD_ITS ---
Subjective Subjective Date of Service: 06/04/24 Reason For Visit: Multiple electrolyte imbalances Interim History: Patient seen in follow up marine gear keeper met with patient obtained substance use history and provided with treatment options for AUD Seen in room 453 to check in regarding this Patient awake and alert, pleasant and engaged in interview. mother at bedside He expressed interest in disulfiram mainly for the negative side effects if he decided to drink alcohol while taking it. He reports that he drinks at home alone. Has minimal support or social [place]. This engineering technical writer advised that Disulfiram is not 1st line treatment for AUD, and given that he has no other recovery supports in place it would not be advised to start with this medication. Reviewed naltrexone as an option. Discussed dosing, side effects and mechanism of action Patient agreeable to Naltrexone trial He is no longer experiencing withdrawal sx, however is still having difficulty walking and eating Review of Systems Constitutional: Reports as per HPI Mental Status Exam Mental Status Exam Patient Appearance: Appropriate Level of Consciousness: Awake, Appropriate and Alert Patient Behavior: Talkative Diagnostics Vital Signs (24Hr): Vital Signs - 24 hr 06/03/24 11:02 06/03/24 15:19 06/03/24 19:36 Temperature 98.3 F 98.2 F 98.3 F Pulse Rate 96 101 H 105 H Respiratory Rate 20 16 16 Blood Pressure 137/95 H 154/84 H 140/70 H Pulse Oximetry 96 98 98 Oxygen Delivery Method Room Air Room Air Room Air 06/03/24 23:30 06/04/24 03:32 06/04/24 07:14 Temperature 98.6 F 98.1 F 97.9 F Pulse Rate 107 H 110 H 100 Respiratory Rate 20 20 20 Blood Pressure 140/85 H 132/64 141/86 H Pulse Oximetry 96 91 L 98 Oxygen Delivery Method Room Air Room Air Room Air BMI result Body Mass Index 42.9 Labs 06/05/24 13:56 06/05/24 13:56 Labs: Laboratory Results - last 48 hr 06/02/24 06/03/24 06/03/24 13:23 05:51 16:45 WBC 6.8 RBC 2.16 L Hgb 8.1 L 8.1 L Hct 22.7 L 23.2 L MCV 107.4 H MCH 37.5 H MCHC 34.9 RDW 26.0 H Plt Count 284 MPV 9.5 Absolute Nucleated RBC 0.450 H Nucleated RBC % (auto) 6.6 H Smear Path Review SEE NOTE PT 13.0 H INR 1.1 Sodium 134 L 137 Potassium 3.9 D 3.6 Chloride 96 100 Carbon Dioxide 29 27 Anion Gap 13 14 BUN 7 L 6 L Creatinine 0.58 0.51 Estim Creat Clear Calc 260.7 296.4 Estimated GFR > 60 > 60 Random Glucose 94 85 Haptoglobin 152 Calcium 7.5 L 7.3 L Magnesium 1.7 1.7 Total Bilirubin 1.4 H AST 82 H ALT 51 H Alkaline Phosphatase 254 H C-Reactive Protein 11.39 H Total Protein 5.3 L Albumin 2.6 L Stool Occult Blood NEGATIVE Blood Type O Positive Antibody Screen NEGATIVE CASSANDRA, Polyspecific NEGATIVE Positive CASSANDRA Work-up TNP 06/04/24 06:04 WBC 6.8 RBC 2.17 L Hgb 8.1 L Hct 23.1 L MCV 106.5 H MCH 37.3 H MCHC 35.1 RDW 26.4 H Plt Count 321 MPV 9.3 L Absolute Nucleated RBC 0.370 H Nucleated RBC % (auto) 5.4 H Smear Path Review PT INR Sodium 137 Potassium 3.5 Chloride 101 Carbon Dioxide 26 Anion Gap 14 BUN 6 L Creatinine 0.56 Estim Creat Clear Calc 270.0 Estimated GFR > 60 Random Glucose 81 Haptoglobin Calcium 7.3 L Magnesium 1.6 Total Bilirubin AST ALT Alkaline Phosphatase C-Reactive Protein Total Protein Albumin Stool Occult Blood Blood Type Antibody Screen CASSANDRA, Polyspecific Positive CASSANDRA Work-up Imaging Radiology Impressions: ITS Impressions Face CT 05/31/24 19:08 IMPRESSION: 1. No evidence of acute fracture of the maxillofacial bones. 2. Multifocal odontogenic disease, most notably involving the mandibular left 1st molar. Mild soft tissue edema of the outer gums along the left available process of the mandible. No demonstrated discrete drainable fluid collection. 3. Moderately prominent bilateral levels Ib lymph nodes, likely reactive in nature. Electronically signed by: Garo Weaver DO 05/31/2024 09:28 PM EDT RP Medications Medications Current Medications Acetaminophen (Acetaminophen 325 Mg Tablet) 650 mg PO Q4H PRN PRN Reason: Pain, Mild (Pain Scale 1-3) Last Admin: 06/03/24 21:12 Dose: 650 mg Calcium Carbonate (Calcium Carbonate 750 Mg Tab.Chew) 750 mg PO BID [facility] Last Admin: 06/03/24 21:12 Dose: 750 mg Enoxaparin Sodium (Enoxaparin Sodium 40 Mg/0.4 Ml Syringe) 40 mg SUBCUT Q24H [facility] Last Admin: 06/02/24 08:32 Dose: 40 mg Ergocalciferol (Ergocalciferol (Vitamin D2) 1,250 Mcg Capsule) 1,250 mcg PO Mo@0900 [facility] Last Admin: 06/01/24 12:24 Dose: Not Given Folic Acid (Folic Acid 1 Mg Tablet) 1 mg PO DAILY [facility] Last Admin: 06/03/24 07:51 Dose: 1 mg Thiamine HCl 100 mg/ Sodium (Chloride) 101 mls @ 202 mls/hr IV DAILY [facility] Last Infusion: 06/03/24 08:21 Dose: Infused Lactated Ringer's (Lr) 1,000 mls @ 125 mls/hr IVCONT .Q8H [facility] Last Infusion: 06/04/24 00:30 Dose: Infused Ceftriaxone Sodium 2 gm/ (Sodium Chloride) 50 mls @ 100 mls/hr IV Q24H [facility] Last Infusion: 06/03/24 21:43 Dose: Infused Metronidazole (Flagyl) 500 mg in 100 mls @ 100 mls/hr IV Q8H [facility] Last Infusion: 06/04/24 03:23 Dose: Infused Lidocaine/Diphenhydr/Alum/Mg/Simeth (Mag&Al/Sim/Diphenhyd/Lidocaine 10 Ml Oral.Susp) 10 ml PO Q4H PRN; Protocol PRN Reason: mouth pain Lorazepam (Lorazepam 1 Mg Tablet) 2 mg PO RQ4H WHILE AWAKE PRN PRN Reason: Alcohol Withdrawal Last Admin: 06/03/24 02:37 Dose: 2 mg Magnesium Oxide (Magnesium Oxide 400 Mg Tablet) 400 mg PO DAILY [facility] Last Admin: 06/03/24 07:50 Dose: 400 mg Multivitamins/Vitamin C (Multivitamin Tablet) 1 tab PO DAILY [facility] Last Admin: 06/03/24 07:51 Dose: 1 tab Nystatin (Nystatin Powder 15 Gm Bottle) 1 appl TOPICAL BID [facility]; Protocol Last Admin: 06/03/24 23:38 Dose: 1 appl Ondansetron HCl (Ondansetron Hcl 4 Mg/2 Ml Vial) 4 mg IVPUSH Q6H PRN PRN Reason: Nausea and Vomiting Last Admin: 06/01/24 21:43 Dose: 4 mg Phenobarbital (Phenobarbital 15 Mg Tablet) 15 mg PO BID [facility]; Protocol Stop: 06/05/24 09:01 Last Admin: 06/03/24 21:12 Dose: 15 mg Phenobarbital (Phenobarbital 15 Mg Tablet) 15 mg PO DAILY [facility]; Protocol Stop: 06/07/24 09:01 Sodium Chloride (0.9 % Sodium Chloride Flush 3 Ml Syringe) 3 ml IVFLUSH QSHIFT [facility] Last Admin: 06/04/24 00:56 Dose: Not Given Allergies Allergies Allergy/AdvReac Type Severity Reaction Status Date / Time amoxicillin Allergy Unknown hives Verified 05/31/24 15:39 Penicillins [PENICILLINS] Allergy Unknown ANAPHYLAXIS Verified 05/31/24 15:39 red dye [RED DYE] Allergy Unknown UNKNOWN Verified 05/31/24 15:39 shrimp [SHRIMP] Allergy Unknown UNKNOWN Verified 05/31/24 15:39 Sulfa (Sulfonamide Allergy Unknown hives Verified 05/31/24 15:39 Antibiotics) sulfamethoxazole Allergy Unknown UNKNOWN Verified 05/31/24 15:39 [From BACTRIM] trimethoprim [From BACTRIM] Allergy Unknown UNKNOWN Verified 05/31/24 15:39 Biaxin Allergy Unknown hives Uncoded 05/31/24 15:39 SEAFOOD Allergy Unknown UNKNOWN Uncoded 05/31/24 15:39 Assessment & Plan Assessment & Plan (1) Alcohol use disorder, severe, dependence: Status: Acute Code(s): F10.20 - Alcohol dependence, uncomplicated Assessment and Plan: * naltrexone prior to d/c * recovery support resources * RN to follow up during hospitalization Total time managing care of this patient today ___25_ minutes.
[2024-06-04] MEDS: Thiamine HCL 100 MG in 0.9 % Sodium Chloride 100 ML 202 MG IV (11:00)
[2024-06-04] MEDS: 0.9 % Sodium Chloride Flush 3 ML SYRINGE IVFLUSH ×3 (11:06→20:21)
[2024-06-04] MEDS: Nystatin Powder 15 GM BOTTLE 1 APPL TOPICAL ×2 (11:06→20:21)
--- NOTE | 2024-06-04 11:08 | MHC.CM.PN ---
PT is recommending STR; CM will follow.
--- NOTE | 2024-06-04 11:32 | HO.PM.IMPN ---
Subjective Subjective Date of Service: 06/04/24 Interval History: still having some visual hallucinations very unsteady on his feet no abd pain c/o tooth + gum + jaw pain Review of Systems Review of Systems: Yes all other systems are reviewed and are negative Physical Exam Vital Signs: Vital Signs: Last Vital Signs Temp 97.9 F 06/04/24 07:14 Pulse 100 06/04/24 07:14 Resp 20 06/04/24 07:14 BP 141/86 H 06/04/24 07:14 Pulse Ox 98 06/04/24 07:14 O2 Del Method Room Air 06/04/24 07:14 BMI result Body Mass Index 42.9 Gen: in no acute distress HEENT: sclera anicteric, moist mucus membranes with irritated gums, L mandibular pain Neck: supple Lungs: clear to auscultation bilaterally Heart: regular rate and rhythm, no murmurs Abd: soft, non-tender, non-distended, obese Ext: no edema Skin: warm/well-perfused Neuro: alert and oriented x3, no focal findings Psych: appropriate affect Objective Data Active Medications Acetaminophen (Acetaminophen 325 Mg Tablet) 650 mg PO Q4H PRN PRN Reason: Pain, Mild (Pain Scale 1-3) Last Admin: 06/04/24 10:42 Dose: 650 mg Documented By: ANSELMO Calcium Carbonate (Calcium Carbonate 750 Mg Tab.Chew) 750 mg PO BID [facility] Last Admin: 06/04/24 10:41 Dose: 750 mg Documented By: ANSELMO Enoxaparin Sodium (Enoxaparin Sodium 40 Mg/0.4 Ml Syringe) 40 mg SUBCUT Q24H [facility] Last Admin: 06/02/24 08:32 Dose: 40 mg Documented By: MARCELO Ergocalciferol (Ergocalciferol (Vitamin D2) 1,250 Mcg Capsule) 1,250 mcg PO Mo@0900 [facility] Last Admin: 06/01/24 12:24 Dose: Not Given Documented By: COMPA Non-Admin Reason: Med Not Available Folic Acid (Folic Acid 1 Mg Tablet) 1 mg PO DAILY [facility] Last Admin: 06/04/24 10:41 Dose: 1 mg Documented By: ANSELMO Thiamine HCl 100 mg/ Sodium (Chloride) 101 mls @ 202 mls/hr IV DAILY [facility] Last Admin: 06/04/24 11:00 Dose: 202 mls/hr Documented By: ANSELMO Ceftriaxone Sodium 2 gm/ (Sodium Chloride) 50 mls @ 100 mls/hr IV Q24H [facility] Last Infusion: 06/03/24 21:43 Dose: Infused Documented By: LAVELL Metronidazole (Flagyl) 500 mg in 100 mls @ 100 mls/hr IV Q8H [facility] Last Admin: 06/04/24 10:42 Dose: 100 mls/hr Documented By: ANSELMO Lidocaine/Diphenhydr/Alum/Mg/Simeth (Mag&Al/Sim/Diphenhyd/Lidocaine 10 Ml Oral.Susp) 10 ml PO Q4H PRN; Protocol PRN Reason: mouth pain Lorazepam (Lorazepam 1 Mg Tablet) 2 mg PO RQ4H WHILE AWAKE PRN PRN Reason: Alcohol Withdrawal Last Admin: 06/03/24 02:37 Dose: 2 mg Documented By: VICKIE Magnesium Oxide (Magnesium Oxide 400 Mg Tablet) 400 mg PO DAILY [facility] Last Admin: 06/04/24 10:41 Dose: 400 mg Documented By: ANSELMO Multivitamins/Vitamin C (Multivitamin Tablet) 1 tab PO DAILY [facility] Last Admin: 06/04/24 10:41 Dose: 1 tab Documented By: ANSELMO Nystatin (Nystatin Powder 15 Gm Bottle) 1 appl TOPICAL BID [facility]; Protocol Last Admin: 06/04/24 11:06 Dose: 1 appl Documented By: ANSELMO Ondansetron HCl (Ondansetron Hcl 4 Mg/2 Ml Vial) 4 mg IVPUSH Q6H PRN PRN Reason: Nausea and Vomiting Last Admin: 06/01/24 21:43 Dose: 4 mg Documented By: VICKIE Phenobarbital (Phenobarbital 15 Mg Tablet) 15 mg PO BID [facility]; Protocol Stop: 06/05/24 09:01 Last Admin: 06/04/24 10:41 Dose: 15 mg Documented By: ANSELMO Phenobarbital (Phenobarbital 15 Mg Tablet) 15 mg PO DAILY [facility]; Protocol Stop: 06/07/24 09:01 Sodium Chloride (0.9 % Sodium Chloride Flush 3 Ml Syringe) [facility] Last Admin: 06/04/24 11:06 Dose: 3 ml Documented By: ANSELMO Labs 06/04/24 06:04 06/04/24 06:04 Labs: Laboratory Results - last 24 hr 06/03/24 06/04/24 16:45 06:04 MCV 106.5 H MCH 37.3 H MCHC 35.1 RDW 26.4 H Plt Count 321 MPV 9.3 L Absolute Nucleated RBC 0.370 H Nucleated RBC % (auto) 5.4 H Anion Gap 14 Estim Creat Clear Calc 270.0 Estimated GFR > 60 Random Glucose 81 Calcium 7.3 L Magnesium 1.6 Stool Occult Blood NEGATIVE Microbiology Microbiology Results: Microbiology 05/31/24 18:26 Blood Culture - Preliminary Blood - Venous Prelim: GNR Gram Stain only Assessment and Plan (1) Alcohol abuse: Status: Acute Plan d4 for this 28yo M with AUD + vit D deficiency with secondary hyperPTH presenting with progressive difficulty walking x 6mo, 1d hx of toothache, hx withdrawal found to be febrile + tachycardic with lactic acidosis, hypoNa, hypoK, hypomg, hypoCa; EtOH withdrawal odontogenic infection GNR bacteremia - ceftriaxone + metronidazole 06/01-, outpt dental followup, follow BCx speciation/susceptibilities macrocytic anemia - likely due to EtOH; H+H stable and FOBT negative hypoK hypoCa hypoMg - repleted hypoNa - resolved with fluid resuscitation AUD with withdrawal - phenobarbital taper, thiamine, folic acid, Addiction Medicine consulted and interested in disulfiram lactic acidosis - due to alcohol, not sepsis vit D deficiency secondary hyperPTH - replete vitamin D morbid obesity - diet/exercise counseling VTE prophylaxis - hold enoxaparin due to severe anemia; place SCDs dispo - PT evaluation: recommend STR In my clinical judgment, the patient requires continued inpatient hospitalization for the following reasons: EtOH withdrawal, IV ABX, bacteremia, placement Total time managing care of this patient today: 45 minutes. Quality Stroke Does the patient have a stroke diagnosis?: No VTE Prior VTE?: No VTE Risk Level:: Medical - moderate - high VTE Device Contraindication: Treatment Not Indicated VTE Drug Contraindication: N/A - Med Ordered
[2024-06-04 11:49] VITALS: BP 134/71; PULSE 100; RESP 20; TEMP 36.4; O2SAT 93
[2024-06-04 15:36] VITALS: BP 139/73; PULSE 96; RESP 18; TEMP 36.8; O2SAT 96
[2024-06-04] MEDS: LORazepam 1 MG TABLET 2 MG PO (17:07)
[2024-06-04] MEDS: Gabapentin 300 MG CAPSULE PO ×2 (18:24→20:21)
[2024-06-04 19:24] VITALS: BP 119/70; PULSE 101; RESP 18; TEMP 36.3; O2SAT 94
[2024-06-04] MEDS: cefTRIAXone sodium 2 GM in 0.9 % Sodium Chloride 50 ML IV (20:21)
[2024-06-04 23:18] VITALS: BP 127/73; PULSE 95; RESP 18; TEMP 36.4; O2SAT 92
[2024-06-05] VITALS (7 sets, daily range): BP systolic 133–142; BP diastolic 80–87; PULSE 94–118; RESP 18–20; TEMP 36.1–36.6; O2SAT 94–99
[2024-06-05] MEDS: metroNIDAZOLE/NS 500 MG/100 ML PIGGYBACK 100 MG IV ×2 (02:22→08:45)
[2024-06-05] MEDS: Thiamine HCL 100 MG in 0.9 % Sodium Chloride 100 ML 202 MG IV (08:45)
[2024-06-05] MEDS: Magnesium Oxide 400 MG TABLET PO (08:46)
[2024-06-05] MEDS: Calcium Carbonate 750 MG TAB.CHEW PO (08:46)
[2024-06-05] MEDS: Multivitamin TABLET 1 TAB PO (08:46)
[2024-06-05] MEDS: Gabapentin 300 MG CAPSULE PO ×3 (08:46→21:41)
[2024-06-05] MEDS: Folic Acid 1 MG TABLET PO (08:46)
[2024-06-05] MEDS: PHENobarbitaL 15 MG TABLET PO (08:46)
[2024-06-05] MEDS: 0.9 % Sodium Chloride Flush 3 ML SYRINGE IVFLUSH ×3 (09:10→21:42)
--- NOTE | 2024-06-05 10:17 | MHC.CM.PN ---
Per ROUNDS discussion, Patient is not yet medically cleared for dc (Hallucinating); PT is recommending STR and CM will continue to follow.
--- NOTE | 2024-06-05 12:56 | HO.PM.IMPN ---
Subjective Subjective Date of Service: 06/05/24 Interval History: having visual hallucinations which are actually not distressing to him burning pain of feet improved still has L jaw pain no fever Review of Systems Review of Systems: Yes all other systems are reviewed and are negative Physical Exam Vital Signs: Vital Signs: Last Vital Signs Temp 97.2 F 06/05/24 11:04 Pulse 94 06/05/24 11:04 Resp 18 06/05/24 11:04 BP 142/86 H 06/05/24 11:04 Pulse Ox 98 06/05/24 11:04 O2 Del Method Room Air 06/05/24 11:04 BMI result Body Mass Index 42.9 Gen: in no acute distress HEENT: sclera anicteric, moist mucus membranes with irritated gums, L mandibular tenderness Neck: supple Lungs: clear to auscultation bilaterally Heart: regular rate and rhythm, no murmurs Abd: soft, non-tender, non-distended, obese Ext: no edema Skin: warm/well-perfused Neuro: alert and oriented x3, hyperesthesia of feet Psych: appropriate affect Objective Data Active Medications Acetaminophen (Acetaminophen 325 Mg Tablet) 650 mg PO Q4H PRN PRN Reason: Pain, Mild (Pain Scale 1-3) Last Admin: 06/04/24 10:42 Dose: 650 mg Documented By: ANSELMO Calcium Carbonate (Calcium Carbonate 750 Mg Tab.Chew) 750 mg PO BID [facility] Last Admin: 06/05/24 08:46 Dose: 750 mg Documented By: ANSELMO Enoxaparin Sodium (Enoxaparin Sodium 40 Mg/0.4 Ml Syringe) 40 mg SUBCUT Q24H [facility] Last Admin: 06/02/24 08:32 Dose: 40 mg Documented By: MARCELO Ergocalciferol (Ergocalciferol (Vitamin D2) 1,250 Mcg Capsule) 1,250 mcg PO Mo@0900 [facility] Last Admin: 06/01/24 12:24 Dose: Not Given Documented By: COMPA Non-Admin Reason: Med Not Available Folic Acid (Folic Acid 1 Mg Tablet) 1 mg PO DAILY [facility] Last Admin: 06/05/24 08:46 Dose: 1 mg Documented By: ANSELMO Gabapentin (Gabapentin 300 Mg Capsule) 300 mg PO TID [facility] Last Admin: 06/05/24 08:46 Dose: 300 mg Documented By: ANSELMO Thiamine HCl 100 mg/ Sodium (Chloride) 101 mls @ 202 mls/hr IV DAILY [facility] Last Infusion: 06/05/24 11:22 Dose: Infused Documented By: ANSELMO Ceftriaxone Sodium 2 gm/ (Sodium Chloride) 50 mls @ 100 mls/hr IV Q24H [facility] Last Infusion: 06/04/24 21:06 Dose: Infused Documented By: YAN Lidocaine/Diphenhydr/Alum/Mg/Simeth (Mag&Al/Sim/Diphenhyd/Lidocaine 10 Ml Oral.Susp) 10 ml PO Q4H PRN; Protocol PRN Reason: mouth pain Magnesium Oxide (Magnesium Oxide 400 Mg Tablet) 400 mg PO DAILY [facility] Last Admin: 06/05/24 08:46 Dose: 400 mg Documented By: ANSELMO Metronidazole (Metronidazole 500 Mg Tablet) 500 mg PO Q8H [facility] Multivitamins/Vitamin C (Multivitamin Tablet) 1 tab PO DAILY [facility] Last Admin: 06/05/24 08:46 Dose: 1 tab Documented By: ANSELMO Nystatin (Nystatin Powder 15 Gm Bottle) 1 appl TOPICAL BID [facility]; Protocol Last Admin: 06/04/24 20:21 Dose: 1 appl Documented By: YAN Ondansetron HCl (Ondansetron Hcl 4 Mg/2 Ml Vial) 4 mg IVPUSH Q6H PRN PRN Reason: Nausea and Vomiting Last Admin: 06/01/24 21:43 Dose: 4 mg Documented By: VICKIE Phenobarbital (Phenobarbital 15 Mg Tablet) 15 mg PO DAILY [facility]; Protocol Stop: 06/07/24 09:01 Sodium Chloride (0.9 % Sodium Chloride Flush 3 Ml Syringe) 3 ml IVFLUSH QSHIFT [facility] Last Admin: 06/04/24 20:21 Dose: 3 ml Documented By: YAN Labs 06/04/24 06:04 06/04/24 06:04 Assessment and Plan (1) Alcohol abuse: Status: Acute Plan d5 for this 28yo M with AUD + vit D deficiency with secondary hyperPTH presenting with progressive difficulty walking x 6mo, 1d hx of toothache, hx withdrawal found to be febrile + tachycardic with lactic acidosis, hypoNa, hypoK, hypomg, hypoCa; EtOH withdrawal odontogenic infection GNR bacteremia - ceftriaxone + metronidazole 06/01-, outpt dental followup, follow BCx speciation/susceptibilities macrocytic anemia - likely due to EtOH; H+H stable and FOBT negative hypoK hypoCa hypoMg - repleted hypoNa - resolved with fluid resuscitation AUD with withdrawal - phenobarbital taper, thiamine, folic acid, Addiction Medicine consulted and interested in disulfiram hallucinations - suspect part of alcohol withdrawal but will consult Psychiatry; did get 1-time dose of olanzapine peripheral neuropathy - likely due to EtOH, improved with gabapentin lactic acidosis - due to alcohol, not sepsis vit D deficiency secondary hyperPTH - replete vitamin D morbid obesity - diet/exercise counseling VTE prophylaxis - hold enoxaparin due to severe anemia; place SCDs dispo - PT evaluation: recommend STR In my clinical judgment, the patient requires continued inpatient hospitalization for the following reasons: EtOH withdrawal, IV ABX, bacteremia, placement Total time managing care of this patient today: 40 minutes. Quality Stroke Does the patient have a stroke diagnosis?: No VTE Prior VTE?: No VTE Risk Level:: Medical - moderate - high VTE Device Contraindication: Treatment Not Indicated VTE Drug Contraindication: N/A - Med Ordered
[2024-06-05 14:16] LABS: Hematocrit 26.1 % (42.0-52.0); Hemoglobin 9.1 g/dl (14.0-18.0); Mean Corpuscular HGB Conc 34.9 g/dl (31.0-36.0); Mean Corpuscular Hemoglobin 37.9 pg (27.0-33.0); Mean Corpuscular Volume 108.8 fL (80.0-98.0); PLT CLUMP 1
[2024-06-05 14:30] LABS: Alanine Aminotransferase 46 U/L (0-40); Albumin Level 2.7 g/dL (3.5-5.0); Alkaline Phosphatase 268 U/L (39-117); Anion Gap 11 (12-20); Aspartate Amino Transferase 78 U/L (5-37); Bilirubin Total 0.9 mg/dL (0.0-1.0); Blood Urea Nitrogen 5 mg/dL (9-16); Carbon Dioxide 25 mmol/L (22-29); Chloride 104 mmol/L (96-108); Estimated Glomerular Filt Rate > 60; Glucose Random 124 mg/dL (60-115); Magnesium 1.6 mg/dL (1.6-2.6); Potassium 3.7 mmol/L (3.3-5.1); Sodium 136 mmol/L (135-145); Total Protein 5.5 g/dL (6.5-8.0)
--- NOTE | 2024-06-05 14:36 | P.CDIM_ITS ---
PROVIDER RESPONSE TEXT: To clarify, the appropriate diagnosis supported by the clinical indicators: Acute QUERY TEXT: PHYSICIAN'S DOCUMENTATION REQUEST Date of Query: 06/02/2024 07:35 AM EDT Patient Name: Tab Morejon Admit Date: 06/01/2024 Dear Elizabeth Foster MD, A review of the medical record indicates additional documentation may be needed. Please review below and update the documentation accordingly. Clinical Indicators: H&P: Lactic acidosis, secondary to alcohol use. Continue to monitor. Event note: Lactic acidosis, due to alcohol not Sepsis. Clarify which of the following accurately represents the acuity of the Lactic acidosis: Acute Chronic Other (explain) Clinically unable to determine (explain) Thank you, Marilee aJde, CCS, CDIS Use of terms such as suspected, likely, concern for, or probable (associated with a specific diagnosi s that is being evaluated, monitored, or treated as if it exists) are acceptable and can be coded in the inpatient se tting, when documented at the time of discharge. Please use your independent medical judgment in providing your response. THIS QUERY IS PART OF THE PERMANENT MEDICAL RECORD
[2024-06-05 14:44] LABS: NRBC Pct Auto 3.1 /100WBC (0.0-0.2); White Blood Count 6.8 X10*3/uL (4.8-10.8)
[2024-06-05 14:45] LABS: Platelet Count 371 X10*3/uL (160-400)
[2024-06-05] MEDS: Nystatin Powder 15 GM BOTTLE 1 APPL TOPICAL ×2 (17:13→21:43)
[2024-06-05] MEDS: metroNIDAZOLE 500 MG TABLET PO (17:13)
[2024-06-05] MEDS: Acetaminophen 325 MG TABLET 650 MG PO ×2 (17:13→21:41)
[2024-06-05] MEDS: LORazepam 0.5 MG TABLET PO (21:42)
[2024-06-05] MEDS: cefTRIAXone sodium 2 GM VIAL IVPUSH (21:47)
[2024-06-06] VITALS: BP 139/82; PULSE 106; RESP 18; TEMP 36.6; O2SAT 96
[2024-06-06] MEDS: metroNIDAZOLE 500 MG TABLET PO ×3 (00:19→16:57)
[2024-06-06 03:46] VITALS: BP 99/53; PULSE 97; RESP 20; TEMP 37.1; O2SAT 90
[2024-06-06 08:00] VITALS: BP 126/77; PULSE 97; RESP 20; TEMP 36.5; O2SAT 100
[2024-06-06 08:09] LABS: Alanine Aminotransferase 41 U/L (0-40); Albumin Level 2.7 g/dL (3.5-5.0); Alkaline Phosphatase 229 U/L (39-117); Anion Gap 11 (12-20); Aspartate Amino Transferase 63 U/L (5-37); Bilirubin Total 0.8 mg/dL (0.0-1.0); Blood Urea Nitrogen 5 mg/dL (9-16); C Reactive Protein 2.63 mg/dL (< or = 0.50); Calcium 7.9 mg/dL (8.4-10.2); Carbon Dioxide 28 mmol/L (22-29); Chloride 103 mmol/L (96-108); Creatinine Clr Calc Pharmacy 274.9; Estimated Glomerular Filt Rate > 60; Glucose Random 75 mg/dL (60-115); Magnesium 1.7 mg/dL (1.6-2.6); Potassium 3.4 mmol/L (3.3-5.1); Sodium 139 mmol/L (135-145); Total Protein 5.2 g/dL (6.5-8.0)
[2024-06-06 08:30] LABS: Hematocrit 25.9 % (42.0-52.0); Hemoglobin 8.9 g/dl (14.0-18.0); Mean Corpuscular HGB Conc 34.4 g/dl (31.0-36.0); Mean Corpuscular Volume 110.7 fL (80.0-98.0); Mean Platelet Volume 9.3 fL (9.4-12.4); NRBC Pct Auto 1.6 /100WBC (0.0-0.2); Platelet Count 385 X10*3/uL (160-400); Red Blood Count 2.34 X10*6/uL (4.60-5.80); White Blood Count 6.4 X10*3/uL (4.8-10.8)
[2024-06-06] MEDS: Magnesium Oxide 400 MG TABLET PO (10:46)
[2024-06-06] MEDS: Multivitamin TABLET 1 TAB PO (10:46)
[2024-06-06] MEDS: Folic Acid 1 MG TABLET PO (10:46)
[2024-06-06] MEDS: PHENobarbitaL 15 MG TABLET PO (10:46)
[2024-06-06] MEDS: Gabapentin 300 MG CAPSULE PO ×3 (10:47→23:11)
[2024-06-06] MEDS: Calcium Carbonate 750 MG TAB.CHEW PO (10:47)
[2024-06-06] MEDS: ondansetron HCL 4 MG/2 ML VIAL IVPUSH (10:56)
[2024-06-06] MEDS: Acetaminophen 325 MG TABLET 650 MG PO ×3 (10:58→23:12)
[2024-06-06 12:00] VITALS: BP 135/73; PULSE 107; RESP 20; TEMP 36.8; O2SAT 94
[2024-06-06] MEDS: Thiamine HCL 100 MG in 0.9 % Sodium Chloride 100 ML 202 MG IV (12:13)
--- NOTE | 2024-06-06 12:43 | P.PNIM_ITS ---
Subjective Subjective Date of Service: 06/06/24 Interval History: hallucinations improved but still quite anxious burning foot pain improved jaw pain improved Review of Systems Review of Systems: Yes all other systems are reviewed and are negative Physical Exam 2 Vital Signs: Vital Signs: Last Vital Signs Temp 98.2 F 06/06/24 12:00 Pulse 107 H 06/06/24 12:00 Resp 20 06/06/24 12:00 BP 135/73 06/06/24 12:00 Pulse Ox 94 06/06/24 12:00 O2 Del Method Room Air 06/06/24 12:00 BMI result Body Mass Index 42.9 Gen: in no acute distress HEENT: sclera anicteric, moist mucus membranes moist Neck: supple Lungs: clear to auscultation bilaterally Heart: regular rate and rhythm, no murmurs Abd: soft, non-tender, non-distended, obese Ext: no edema Skin: warm/well-perfused Neuro: alert and oriented x3, hyperesthesia of feet Psych: appropriate affect Objective Data Active Medications Acetaminophen (Acetaminophen 325 Mg Tablet) 650 mg PO Q4H PRN PRN Reason: Pain, Mild (Pain Scale 1-3) Last Admin: 06/06/24 10:58 Dose: 650 mg Documented By: KERRY Calcium Carbonate (Calcium Carbonate 750 Mg Tab.Chew) 750 mg PO BID [facility] Last Admin: 06/06/24 10:47 Dose: 750 mg Documented By: KERRY Ceftriaxone Sodium (Ceftriaxone Sodium 2 Gm Vial) 2 gm IVPUSH Q24H [facility] Last Admin: 06/05/24 21:47 Dose: 2 gm Documented By: VICKIE Enoxaparin Sodium (Enoxaparin Sodium 40 Mg/0.4 Ml Syringe) 40 mg SUBCUT Q24H [facility] Last Admin: 06/02/24 08:32 Dose: 40 mg Documented By: MARCELO Ergocalciferol (Ergocalciferol (Vitamin D2) 1,250 Mcg Capsule) 1,250 mcg PO Mo@0900 [facility] Last Admin: 06/01/24 12:24 Dose: Not Given Documented By: COMPA Non-Admin Reason: Med Not Available Folic Acid (Folic Acid 1 Mg Tablet) 1 mg PO DAILY [facility] Last Admin: 06/06/24 10:46 Dose: 1 mg Documented By: KERRY Gabapentin (Gabapentin 300 Mg Capsule) 300 mg PO TID [facility] Last Admin: 06/06/24 10:47 Dose: 300 mg Documented By: KERRY Thiamine HCl 100 mg/ Sodium (Chloride) 101 mls @ 202 mls/hr IV DAILY [facility] Last Admin: 06/06/24 12:13 Dose: 202 mls/hr Documented By: KERRY Lidocaine/Diphenhydr/Alum/Mg/Simeth (Mag&Al/Sim/Diphenhyd/Lidocaine 10 Ml Oral.Susp) 10 ml PO Q4H PRN; Protocol PRN Reason: mouth pain Magnesium Oxide (Magnesium Oxide 400 Mg Tablet) 400 mg PO DAILY [facility] Last Admin: 06/06/24 10:46 Dose: 400 mg Documented By: KERRY Metronidazole (Metronidazole 500 Mg Tablet) 500 mg PO Q8H [facility] Last Admin: 06/06/24 10:47 Dose: 500 mg Documented By: KERRY Multivitamins/Vitamin C (Multivitamin Tablet) 1 tab PO DAILY [facility] Last Admin: 06/06/24 10:46 Dose: 1 tab Documented By: KERRY Nystatin (Nystatin Powder 15 Gm Bottle) 1 appl TOPICAL BID [facility]; Protocol Last Admin: 06/06/24 10:52 Dose: Not Given Documented By: KERRY Non-Admin Reason: Patient Refused Ondansetron HCl (Ondansetron Hcl 4 Mg/2 Ml Vial) 4 mg IVPUSH Q6H PRN PRN Reason: Nausea and Vomiting Last Admin: 06/06/24 10:56 Dose: 4 mg Documented By: KERRY Phenobarbital (Phenobarbital 15 Mg Tablet) 15 mg PO DAILY [facility]; Protocol Stop: 06/07/24 09:01 Last Admin: 06/06/24 10:46 Dose: 15 mg Documented By: KERRY Sodium Chloride (0.9 % Sodium Chloride Flush 3 [facility]l [facility]) [facility] Last Admin: 06/05/24 21:42 Dose: 3 ml Documented By: VICKIE Labs 06/06/24 07:10 06/06/24 07:10 Labs: Laboratory Results - last 24 hr 06/05/24 06/06/24 13:56 07:10 MCV 108.8 H 110.7 H MCH 37.9 H 38.0 H MCHC 34.9 34.4 RDW Not Reportable Not Reportable Plt Count 371 385 MPV Not Reportable 9.3 L Absolute Nucleated RBC 0.210 H 0.100 H Nucleated RBC % (auto) 3.1 H 1.6 H Anion Gap 11 L 11 L Estim Creat Clear Calc 270.0 274.9 Estimated GFR > 60 > 60 Random Glucose 124 H 75 Calcium 8.0 L D 7.9 L Magnesium 1.6 1.7 Total Bilirubin 0.9 0.8 AST 78 H 63 H ALT 46 H 41 H Alkaline Phosphatase 268 H 229 H C-Reactive Protein 2.63 H Total Protein 5.5 L 5.2 L Albumin 2.7 L 2.7 L Microbiology Microbiology Results: Microbiology 05/31/24 18:26 Blood Culture - Final Blood - Venous No growth after 5 days. Assessment and Plan (1) Alcohol abuse: Status: Acute Plan d6 for this 28yo M with AUD + vit D deficiency with secondary hyperPTH presenting with progressive difficulty walking x 6mo, 1d hx of toothache, hx withdrawal found to be febrile + tachycardic with lactic acidosis, hypoNa, hypoK, hypomg, hypoCa; EtOH withdrawal odontogenic infection GNR bacteremia - ceftriaxone + metronidazole 06/01-, outpt dental followup, follow BCx speciation/susceptibilities- called Micro and sent out to [facility] for speciation/susceptibilities macrocytic anemia - likely due to EtOH; H+H stable and FOBT negative hypoK hypoCa hypoMg - repleted hypoNa - resolved with fluid resuscitation AUD with withdrawal - phenobarbital taper for 2 more days, thiamine, folic acid, Addiction Medicine consulted and interested in naltrexone which will be prescribed upon discharge hallucinations - suspect part of alcohol withdrawal; Psych consult pending; did get 1-time dose of olanzapine peripheral neuropathy - likely due to EtOH, improved with gabapentin lactic acidosis - due to alcohol, not sepsis vit D deficiency secondary hyperPTH - replete vitamin D morbid obesity - diet/exercise counseling VTE prophylaxis - enoxaparin dispo - PT evaluation: recommend STR In my clinical judgment, the patient requires continued inpatient hospitalization for the following reasons: EtOH withdrawal, IV ABX, bacteremia, placement Total time managing care of this patient today: 40 minutes. Quality Stroke Does the patient have a stroke diagnosis?: No VTE Prior VTE?: No VTE Risk Level:: Medical - moderate - high VTE Device Contraindication: Treatment Not Indicated VTE Drug Contraindication: N/A - Med Ordered
[2024-06-06 15:29] VITALS: BP 135/92; PULSE 109; RESP 20; TEMP 36.1; O2SAT 96
[2024-06-06] MEDS: LORazepam 1 MG TABLET PO (15:43)
[2024-06-06 20:00] VITALS: BP 140/80; PULSE 98; RESP 20; TEMP 36.8; O2SAT 96
[2024-06-06] MEDS: cefTRIAXone sodium 2 GM VIAL IVPUSH (23:08)
[2024-06-07] VITALS: BP 127/73; PULSE 98; RESP 20; TEMP 36.1; O2SAT 97
[2024-06-07] MEDS: metroNIDAZOLE 500 MG TABLET PO ×3 (00:39→16:22)
[2024-06-07] MEDS: 0.9 % Sodium Chloride Flush 3 ML SYRINGE IVFLUSH ×3 (00:40→21:17)
[2024-06-07 04:00] VITALS: BP 130/76; PULSE 92; RESP 20; TEMP 36.2; O2SAT 96
[2024-06-07 07:59] VITALS: BP 128/82; PULSE 91; RESP 18; TEMP 36.8; O2SAT 98
[2024-06-07] MEDS: Thiamine HCL 100 MG TABLET PO (09:07)
[2024-06-07] MEDS: PHENobarbitaL 15 MG TABLET PO (09:07)
[2024-06-07] MEDS: Gabapentin 300 MG CAPSULE PO ×3 (09:07→21:09)
[2024-06-07] MEDS: Magnesium Oxide 400 MG TABLET PO (09:07)
[2024-06-07] MEDS: Folic Acid 1 MG TABLET PO (09:07)
[2024-06-07] MEDS: Multivitamin TABLET 1 TAB PO (09:07)
[2024-06-07] MEDS: Enoxaparin Sodium 40 MG/0.4 ML SYRINGE SUBCUT (09:08)
[2024-06-07] MEDS: Calcium Carbonate 750 MG TAB.CHEW PO ×2 (09:09→21:09)
[2024-06-07] MEDS: Nystatin Powder 15 GM BOTTLE 1 APPL TOPICAL ×2 (09:19→22:24)
--- NOTE | 2024-06-07 10:43 | P.PNIM_ITS ---
Subjective Subjective Date of Service: 06/07/24 Interval History: feeling much better today, fewer tremors and neuropathy improved c/o L jaw pain no fever Review of Systems Review of Systems: Yes all other systems are reviewed and are negative Physical Exam 2 Vital Signs: Vital Signs: Last Vital Signs Temp 98.3 F 06/07/24 07:59 Pulse 91 06/07/24 07:59 Resp 18 06/07/24 07:59 BP 128/82 06/07/24 07:59 Pulse Ox 98 06/07/24 07:59 O2 Del Method Room Air 06/07/24 07:59 BMI result Body Mass Index 42.9 Gen: in no acute distress HEENT: sclera anicteric, moist mucus membranes moist, L mandibular tenderness Neck: supple Lungs: clear to auscultation bilaterally Heart: regular rate and rhythm, no murmurs Abd: soft, non-tender, non-distended, obese Ext: no edema Skin: warm/well-perfused Neuro: alert and oriented x3, hyperesthesia of feet Psych: appropriate affect Objective Data Active Medications Acetaminophen (Acetaminophen 325 Mg Tablet) 650 mg PO Q4H PRN PRN Reason: Pain, Mild (Pain Scale 1-3) Last Admin: 06/06/24 23:12 Dose: 650 mg Documented By: VICKIE Calcium Carbonate (Calcium Carbonate 750 Mg Tab.Chew) 750 mg PO BID [facility] Last Admin: 06/07/24 09:09 Dose: 750 mg Documented By: KERRY Ceftriaxone Sodium (Ceftriaxone Sodium 2 Gm Vial) 2 gm IVPUSH Q24H [facility] Last Admin: 06/06/24 23:08 Dose: 2 gm Documented By: VICKIE Enoxaparin Sodium (Enoxaparin Sodium 40 Mg/0.4 Ml Syringe) 40 mg SUBCUT Q24H [facility] Last Admin: 06/07/24 09:08 Dose: 40 mg Documented By: KERRY Ergocalciferol (Ergocalciferol (Vitamin D2) 1,250 Mcg Capsule) 1,250 mcg PO Mo@0900 [facility] Last Admin: 06/01/24 12:24 Dose: Not Given Documented By: COMPA Non-Admin Reason: Med Not Available Folic Acid (Folic Acid 1 Mg Tablet) 1 mg PO DAILY [facility] Last Admin: 06/07/24 09:07 Dose: 1 mg Documented By: KERRY Gabapentin (Gabapentin 300 Mg Capsule) 300 mg PO TID [facility] Last Admin: 06/07/24 09:07 Dose: 300 mg Documented By: KERRY Lidocaine/Diphenhydr/Alum/Mg/Simeth (Mag&Al/Sim/Diphenhyd/Lidocaine 10 Ml Oral.Susp) 10 ml PO Q4H PRN; Protocol PRN Reason: mouth pain Magnesium Oxide (Magnesium Oxide 400 Mg Tablet) 400 mg PO DAILY [facility] Last Admin: 06/07/24 09:07 Dose: 400 mg Documented By: KERRY Metronidazole (Metronidazole 500 Mg Tablet) 500 mg PO Q8H [facility] Last Admin: 06/07/24 09:07 Dose: 500 mg Documented By: KERRY Multivitamins/Vitamin C (Multivitamin Tablet) 1 tab PO DAILY [facility] Last Admin: 06/07/24 09:07 Dose: 1 tab Documented By: KERRY Nystatin (Nystatin Powder 15 Gm Bottle) 1 appl TOPICAL BID [facility]; Protocol Last Admin: 06/07/24 09:19 Dose: 1 appl Documented By: KERRY Ondansetron HCl (Ondansetron Hcl 4 Mg/2 Ml Vial) 4 mg IVPUSH Q6H PRN PRN Reason: Nausea and Vomiting Last Admin: 06/06/24 10:56 Dose: 4 mg Documented By: KERRY Sodium Chloride (0.9 % Sodium Chloride Flush 3 Ml Syringe) 3 ml IVFLUSH QSHIFT [facility] Last Admin: 06/07/24 09:08 Dose: 3 ml Documented By: KERRY Thiamine HCl (Thiamine Hcl 100 Mg Tablet) 100 mg PO DAILY [facility] Last Admin: 06/07/24 09:07 Dose: 100 mg Documented By: KERRY Labs 06/06/24 07:10 06/06/24 07:10 Microbiology Microbiology Results: Microbiology 05/31/24 18:26 Blood Culture - Preliminary Blood - Venous Gram negative hank Assessment and Plan (1) Alcohol abuse: Status: Acute Plan d7 for this 28yo M with AUD + vit D deficiency with secondary hyperPTH presenting with progressive difficulty walking x 6mo, 1d hx of toothache, hx withdrawal found to be febrile + tachycardic with lactic acidosis, hypoNa, hypoK, hypomg, hypoCa; EtOH withdrawal odontogenic infection GNR bacteremia - ceftriaxone + metronidazole 06/01-, outpt dental followup, follow BCx speciation/susceptibilities- called Micro and sent out to [facility] for speciation/susceptibilities; pending macrocytic anemia - likely due to EtOH; H+H stable and FOBT negative hypoK hypoCa hypoMg - repleted hypoNa - resolved with fluid resuscitation AUD with withdrawal - today is last day of phenobarbital taper; continue thiamine, folic acid; Addiction Medicine consulted and interested in naltrexone which will be prescribed upon discharge hallucinations - suspect part of alcohol withdrawal; Psych consult pending; did get 1-time dose of olanzapine peripheral neuropathy - likely due to EtOH, improved with gabapentin lactic acidosis - due to alcohol, not sepsis vit D deficiency secondary hyperPTH - replete vitamin D morbid obesity - diet/exercise counseling VTE prophylaxis - enoxaparin dispo - PT evaluation: recommend STR In my clinical judgment, the patient requires continued inpatient hospitalization for the following reasons: IV ABX, bacteremia, placement Total time managing care of this patient today: 40 minutes. Quality Stroke Does the patient have a stroke diagnosis?: No VTE Prior VTE?: No VTE Risk Level:: Medical - moderate - high VTE Device Contraindication: Treatment Not Indicated VTE Drug Contraindication: N/A - Med Ordered
[2024-06-07 12:00] VITALS: BP 119/67; PULSE 98; RESP 20; TEMP 36.4; O2SAT 99
[2024-06-07] MEDS: LORazepam 2 MG/ML VIAL 1 MG IVPUSH ×2 (15:24→21:09)
--- NOTE | 2024-06-07 16:18 | PC.NURSE ---
Pt arrived from [facility] transfer. A&Ox3, no c/o pain, Lungs clear, no n/v. Asked to shower, pt unsteady on feet, advise against showering at this time. Plan STR. Call [facility] within reach. Refusing High Fall Risk Interventions.
[2024-06-07 16:29] VITALS: BP 138/78; PULSE 99; RESP 20; TEMP 36.1; O2SAT 98
[2024-06-07 19:17] VITALS: BP 118/65; PULSE 99; RESP 20; TEMP 36.7; O2SAT 96
[2024-06-07] MEDS: cefTRIAXone sodium 2 GM VIAL IVPUSH (21:15)
[2024-06-07] MEDS: Hydrocortisone 1 % Ointment 28.35 GM TUBE 1 APPL TOPICAL (22:17)
[2024-06-07] MEDS: hydrOXYzine HCL 25 MG TABLET PO (22:17)
[2024-06-08] MEDS: metroNIDAZOLE 500 MG TABLET PO ×3 (01:38→17:05)
[2024-06-08 04:00] VITALS: BP 114/56; PULSE 87; RESP 18; TEMP 36; O2SAT 94
[2024-06-08 07:34] VITALS: BP 129/77; PULSE 103; RESP 20; TEMP 36; O2SAT 93
[2024-06-08] MEDS: Folic Acid 1 MG TABLET PO (08:24)
[2024-06-08] MEDS: Magnesium Oxide 400 MG TABLET PO (08:24)
[2024-06-08] MEDS: Gabapentin 300 MG CAPSULE PO ×3 (08:24→21:31)
[2024-06-08] MEDS: Ergocalciferol (Vitamin D2) 1,250 MCG CAPSULE 1250 MCG PO (08:25)
[2024-06-08] MEDS: Thiamine HCL 100 MG TABLET PO (08:25)
[2024-06-08] MEDS: Multivitamin TABLET 1 TAB PO (08:25)
[2024-06-08] MEDS: Enoxaparin Sodium 40 MG/0.4 ML SYRINGE SUBCUT (08:28)
[2024-06-08] MEDS: 0.9 % Sodium Chloride Flush 3 ML SYRINGE IVFLUSH ×3 (08:29→21:41)
[2024-06-08] MEDS: LORazepam 2 MG/ML VIAL 1 MG IVPUSH ×3 (08:33→21:30)
[2024-06-08] MEDS: Hydrocortisone 1 % Ointment 28.35 GM TUBE 1 APPL TOPICAL ×2 (08:34→21:33)
[2024-06-08] MEDS: Nystatin Powder 15 GM BOTTLE 1 APPL TOPICAL ×2 (08:35→21:34)
[2024-06-08] MEDS: Acetaminophen 325 MG TABLET 650 MG PO (08:37)
--- NOTE | 2024-06-08 08:37 | P.PNIM_ITS ---
Subjective Subjective Date of Service: 06/08/24 Interval History: feels the same as yesterday still with L jaw pain Review of Systems Negative except HPI/interval history. Physical Exam 2 Vital Signs: Vital Signs: Last Vital Signs Temp 96.8 F 06/08/24 07:34 Pulse 103 H 06/08/24 07:34 Resp 20 06/08/24 07:34 BP 129/77 06/08/24 07:34 Pulse Ox 93 06/08/24 07:34 O2 Del Method Room Air 06/08/24 07:34 BMI result Body Mass Index 42.9 Const: Other: Gen: in no acute distress HEENT: sclera anicteric, moist mucus membranes moist, L mandibular tenderness Neck: supple Lungs: clear to auscultation bilaterally Heart: regular rate and rhythm, no murmurs Abd: soft, non-tender, non-distended, obese Ext: no edema Skin: warm/well-perfused Neuro: alert and oriented x3, hyperesthesia of feet Psych: appropriate affect Objective Data Active Medications Acetaminophen (Acetaminophen 325 Mg Tablet) 650 mg PO Q4H PRN PRN Reason: Pain, Mild (Pain Scale 1-3) Last Admin: 06/06/24 23:12 Dose: 650 mg Documented By: VICKIE Calcium Carbonate (Calcium Carbonate 750 Mg Tab.Chew) 750 mg PO BID [facility] Last Admin: 06/08/24 08:28 Dose: Not Given Documented By: GINA Non-Admin Reason: Patient Refused Ceftriaxone Sodium (Ceftriaxone Sodium 2 Gm Vial) 2 gm IVPUSH Q24H [facility] Last Admin: 06/07/24 21:15 Dose: 2 gm Documented By: PASTOR Enoxaparin Sodium (Enoxaparin Sodium 40 Mg/0.4 Ml Syringe) 40 mg SUBCUT Q24H [facility] Last Admin: 06/08/24 08:28 Dose: 40 mg Documented By: GINA Ergocalciferol (Ergocalciferol (Vitamin D2) 1,250 Mcg Capsule) 1,250 mcg PO Mo@0900 [facility] Last Admin: 06/08/24 08:25 Dose: 1,250 mcg Documented By: GINA Folic Acid (Folic Acid 1 Mg Tablet) 1 mg PO DAILY [facility] Last Admin: 06/08/24 08:24 Dose: 1 mg Documented By: GINA Gabapentin (Gabapentin 300 Mg Capsule) 300 mg PO TID [facility] Last Admin: 06/08/24 08:24 Dose: 300 mg Documented By: GINA Hydrocortisone (Hydrocortisone 1 % Ointment 28.35 Gm Tube) 1 appl TOPICAL BID [facility]; Protocol Last Admin: 06/08/24 08:34 Dose: 1 appl Documented By: GINA Lidocaine/Diphenhydr/Alum/Mg/Simeth (Mag&Al/Sim/Diphenhyd/Lidocaine 10 Ml Oral.Susp) 10 ml PO Q4H PRN; Protocol PRN Reason: mouth pain Lorazepam (Lorazepam 2 Mg/Ml Vial) 1 mg IVPUSH Q6H PRN PRN Reason: Anxiety Last Admin: 06/08/24 08:33 Dose: 1 mg Documented By: GINA Magnesium Oxide (Magnesium Oxide 400 Mg Tablet) 400 mg PO DAILY [facility] Last Admin: 06/08/24 08:24 Dose: 400 mg Documented By: GINA Metronidazole (Metronidazole 500 Mg Tablet) 500 mg PO Q8H [facility] Last Admin: 06/08/24 08:25 Dose: 500 mg Documented By: GINA Multivitamins/Vitamin C (Multivitamin Tablet) 1 tab PO DAILY [facility] Last Admin: 06/08/24 08:25 Dose: 1 tab Documented By: GINA Nystatin (Nystatin Powder 15 Gm Bottle) 1 appl TOPICAL BID [facility]; Protocol Last Admin: 06/08/24 08:35 Dose: 1 appl Documented By: GINA Ondansetron HCl (Ondansetron Hcl 4 Mg/2 Ml Vial) 4 mg IVPUSH Q6H PRN PRN Reason: Nausea and Vomiting Last Admin: 06/06/24 10:56 Dose: 4 mg Documented By: KERRY Sodium Chloride (0.9 % Sodium Chloride Flush 3 Ml Syringe) 3 ml IVFLUSH QSHIFT [facility] Last Admin: 06/08/24 08:29 Dose: 3 ml Documented By: GINA Thiamine HCl (Thiamine Hcl 100 Mg Tablet) 100 mg PO DAILY [facility] Last Admin: 06/08/24 08:25 Dose: 100 mg Documented By: GINA Labs 06/06/24 07:10 06/06/24 07:10 Assessment and Plan (1) Alcohol abuse: Status: Acute Plan d7 for this 28yo M with AUD + vit D deficiency with secondary hyperPTH presenting with progressive difficulty walking x 6mo, 1d hx of toothache, hx withdrawal found to be febrile + tachycardic with lactic acidosis, hypoNa, hypoK, hypomg, hypoCa; EtOH withdrawal odontogenic infection GNR bacteremia - ceftriaxone + metronidazole 06/01-, outpt dental followup follow BCx speciation/susceptibilities- called [facility] and sent out to [facility] for speciation/susceptibilities; pending macrocytic anemia - likely due to EtOH; H+H stable and FOBT negative hypoK hypoCa hypoMg - repleted hypoNa - resolved with fluid resuscitation AUD with withdrawal - today is last day of phenobarbital taper; continue thiamine, folic acid; Addiction Medicine consulted and interested in naltrexone which will be prescribed upon discharge hallucinations - suspect part of alcohol withdrawal; Psych consult pending; did get 1-time dose of olanzapine peripheral neuropathy - likely due to EtOH, improved with gabapentin lactic acidosis - due to alcohol, not sepsis vit D deficiency secondary hyperPTH - replete vitamin D morbid obesity - diet/exercise counseling VTE prophylaxis - enoxaparin dispo - PT evaluation: recommend STR In my clinical judgment, the patient requires continued inpatient hospitalization for the following reasons: IV ABX, bacteremia, placement Total time managing care of this patient today: 40 minutes. Quality Stroke Does the patient have a stroke diagnosis?: No VTE Prior VTE?: No VTE Risk Level:: Medical - moderate - high VTE Device Contraindication: Treatment Not Indicated VTE Drug Contraindication: N/A - Med Ordered
--- NOTE | 2024-06-08 10:48 | MHC.CM.PN ---
EMR reviewed, pt is not medically cleared for discharge due to management of bacteremia.
[2024-06-08 15:40] VITALS: BP 103/52; PULSE 110; RESP 16; TEMP 36.2; O2SAT 95
[2024-06-08 19:21] VITALS: BP 136/80; PULSE 107; RESP 18; TEMP 36.1; O2SAT 96
[2024-06-08] MEDS: cefTRIAXone sodium 2 GM VIAL IVPUSH (21:31)
[2024-06-09] MEDS: metroNIDAZOLE 500 MG TABLET PO ×3 (00:16→16:19)
[2024-06-09] MEDS: ondansetron HCL 4 MG/2 ML VIAL IVPUSH (02:03)
[2024-06-09] MEDS: diphenhydrAMINE HCL 50 MG/ML VIAL 25 MG IVPUSH (02:17)
[2024-06-09 03:38] VITALS: BP 116/62; PULSE 92; RESP 18; TEMP 36.4; O2SAT 96
[2024-06-09 07:43] VITALS: BP 110/64; PULSE 90; RESP 18; TEMP 36.5; O2SAT 96
[2024-06-09] MEDS: Gabapentin 300 MG CAPSULE PO ×3 (08:05→21:01)
[2024-06-09] MEDS: Thiamine HCL 100 MG TABLET PO (08:06)
[2024-06-09] MEDS: Magnesium Oxide 400 MG TABLET PO (08:06)
[2024-06-09] MEDS: Folic Acid 1 MG TABLET PO (08:06)
[2024-06-09] MEDS: Multivitamin TABLET 1 TAB PO (08:06)
[2024-06-09] MEDS: Enoxaparin Sodium 40 MG/0.4 ML SYRINGE SUBCUT (08:06)
[2024-06-09] MEDS: Nystatin Powder 15 GM BOTTLE 1 APPL TOPICAL ×2 (08:07→21:03)
[2024-06-09] MEDS: 0.9 % Sodium Chloride Flush 3 ML SYRINGE IVFLUSH ×2 (08:07→16:14)
[2024-06-09] MEDS: Acetaminophen 325 MG TABLET 650 MG PO ×2 (08:12→21:01)
[2024-06-09] MEDS: LORazepam 2 MG/ML VIAL 1 MG IVPUSH ×3 (08:12→22:40)
[2024-06-09 08:21] LABS: HIV AB/AG Nonreactive (Nonreactive); HIV Num 1 0.07 S/CO (0.00-0.99); ~HepC Num1 0.17 S/CO (0.00-0.79); ~Hepatitis C Antibody Nonreactive (Nonreactive)
[2024-06-09] MEDS: Hydrocortisone 1 % Ointment 28.35 GM TUBE 1 APPL TOPICAL ×2 (08:21→21:03)
--- NOTE | 2024-06-09 11:30 | PC.NURSE ---
At approximately 0900 this RN noticed Marijuana smell in room, when asked patient if he had any Marijuana at the bedside or in belongings pt stated he had a vape pen he had been using it frequently at the bedside. This RN educated pt on importance of not using vape at bedside as we are unable to regulate amount and dose of pen and is inappropriate for hospital setting. Pt verbalizes understanding of education. Pt allowed this RN to remove vape pen from bedside. Pen labeled and sent to security via unit clerk. MD Jacobo made aware.
--- NOTE | 2024-06-09 12:57 | W.PM.IDCN ---
History of Present Illness Data of Consult Service Date: 06/08/24 Requesting physician: Cody Brunson Primary Care Provider: None Physician HPI Reason for consult: sphingomonas bacteremia He presents with facial and throat swelling on for last week before admission on 05/31. He had temperature to 101.2 He reports not going to dentist last few years. He has been drinking alcohol recently. He has sphingomonas paucimobiiis bacteremia on admission,one culture. He was started on Ceftriaxone and flagyl and feels better now. Review of Systems Review of Systems: Yes all other systems are reviewed and are negative Eyes: Comments: gum discomfort PMFSH Past Medical History Medical History (Updated 06/09/24 @ 13:06 by Elizabeth Murphy MD) Periodontitis Alcoholism Hernia Family History Family history: reviewed and not pertinent Surgical History Surgical History H/O gastric sleeve Social History Social History Household Members: Family Housing: House Do you presently have visiting nurse or other home services: No Alcohol intake: current Alcohol type: hard liquor Comment: refusing fall risk intervention. Patient Tobacco Use Status: Never used Tobacco Substance Use Type: Marijuana service: No Meds Allergies Allergy/AdvReac Type Severity Reaction Status Date / Time amoxicillin Allergy Unknown hives Verified 05/31/24 15:39 Penicillins [PENICILLINS] Allergy Unknown ANAPHYLAXIS Verified 05/31/24 15:39 red dye [RED DYE] Allergy Unknown UNKNOWN Verified 05/31/24 15:39 shrimp [SHRIMP] Allergy Unknown UNKNOWN Verified 05/31/24 15:39 Sulfa (Sulfonamide Allergy Unknown hives Verified 05/31/24 15:39 Antibiotics) sulfamethoxazole Allergy Unknown UNKNOWN Verified 05/31/24 15:39 [From BACTRIM] trimethoprim [From BACTRIM] Allergy Unknown UNKNOWN Verified 05/31/24 15:39 Biaxin Allergy Unknown hives Uncoded 05/31/24 15:39 SEAFOOD Allergy Unknown UNKNOWN Uncoded 05/31/24 15:39 Active Medications: Current Medications Acetaminophen (Acetaminophen 325 Mg Tablet) 650 mg PO Q4H PRN PRN Reason: Pain, Mild (Pain Scale 1-3) Last Admin: 06/09/24 08:12 Dose: 650 mg Calcium Carbonate (Calcium Carbonate 750 Mg Tab.Chew) 750 mg PO BID [facility] Last Admin: 06/09/24 09:25 Dose: Not Given Ceftriaxone Sodium (Ceftriaxone Sodium 2 Gm Vial) 2 gm IVPUSH Q24H [facility] Last Admin: 06/08/24 21:31 Dose: 2 gm Enoxaparin Sodium (Enoxaparin Sodium 40 Mg/0.4 Ml Syringe) 40 mg SUBCUT Q24H [facility] Last Admin: 06/09/24 08:06 Dose: 40 mg Ergocalciferol (Ergocalciferol (Vitamin D2) 1,250 Mcg Capsule) 1,250 mcg PO Mo@0900 [facility] Last Admin: 06/08/24 08:25 Dose: 1,250 mcg Folic Acid (Folic Acid 1 Mg Tablet) 1 mg PO DAILY [facility] Last Admin: 06/09/24 08:06 Dose: 1 mg Gabapentin (Gabapentin 300 Mg Capsule) 300 mg PO TID [facility] Last Admin: 06/09/24 08:05 Dose: 300 mg Hydrocortisone (Hydrocortisone 1 % Ointment 28.35 Gm Tube) 1 appl TOPICAL BID [facility]; Protocol Last Admin: 06/09/24 08:21 Dose: 1 appl Lidocaine/Diphenhydr/Alum/Mg/Simeth (Mag&Al/Sim/Diphenhyd/Lidocaine 10 Ml Oral.Susp) 10 ml PO Q4H PRN; Protocol PRN Reason: mouth pain Lorazepam (Lorazepam 2 Mg/Ml Vial) 1 mg IVPUSH TID PRN PRN Reason: Anxiety Magnesium Oxide (Magnesium Oxide 400 Mg Tablet) 400 mg PO DAILY [facility] Last Admin: 06/09/24 08:06 Dose: 400 mg Metronidazole (Metronidazole 500 Mg Tablet) 500 mg PO Q8H [facility] Last Admin: 06/09/24 08:05 Dose: 500 mg Multivitamins/Vitamin C (Multivitamin Tablet) 1 tab PO DAILY [facility] Last Admin: 06/09/24 08:06 Dose: 1 tab Nystatin (Nystatin Powder 15 Gm Bottle) 1 appl TOPICAL BID [facility]; Protocol Last Admin: 06/09/24 08:07 Dose: 1 appl Ondansetron HCl (Ondansetron Hcl 4 Mg/2 Ml Vial) 4 mg IVPUSH Q6H PRN PRN Reason: Nausea and Vomiting Last Admin: 06/09/24 02:03 Dose: 4 mg Sodium Chloride (0.9 % Sodium Chloride Flush 3 Ml Syringe) 3 ml IVFLUSH QSHIFT [facility] Last Admin: 06/09/24 08:07 Dose: 3 ml Thiamine HCl (Thiamine Hcl 100 Mg Tablet) 100 mg PO DAILY [facility] Last Admin: 06/09/24 08:06 Dose: 100 mg Home Medications ?Medication ?Instructions ?Recorded ?Confirmed ?Last Taken ?Type No Known Home Meds 06/01/24 06/01/24 Unknown History Physical Exam Vital Signs: Vital Signs: Last Vital Signs Temp 97.7 F 06/09/24 07:43 Pulse 90 06/09/24 07:43 Resp 18 06/09/24 07:43 BP 110/64 06/09/24 07:43 Pulse Ox 96 06/09/24 07:43 O2 Del Method Room Air 06/09/24 07:43 BMI result Body Mass Index 42.9 Const: General: cooperative HEENT: Other: swelling mouth ,periodontal disease Face and sinus: Yes normal facial exam Mouth: Normal oral and palatal mucosa present Teeth and gingiva: dentition normal Eyes: General: appearance normal, both eyes and all related structures Pupils: Equal, round and reactive pupils present Resp: Effort & Inspection: normal respiratory effort Cardio: Rate: regular rate Rhythm: regular rhythm GI: Palpation (GI): Soft to palpation and nontender : General: Yes no CVA tenderness Back/Spine/Pelvis: Back: no CVA tenderness Skin: General skin exam: no rashes or lesions noted Neuro: General: moves all extremities Cranial nerves: Yes Equal, round and reactive pupils present Extrem: General: Yes normal to inspection Psych: Appearance: grossly normal Results Labs 06/06/24 07:10 06/06/24 07:10 Microbiology Microbiology Results: Microbiology 05/31/24 18:26 Blood - Venous Blood Culture - Preliminary Sphingomonas paucimobilis 05/31/24 18:26 Blood - Venous Blood Culture - Final No growth after 5 days. 06/01/24 Unknown Urine clean catch - Clean Catch Midstream Urine Culture - Final Assessment and Plan (1) Alcohol use disorder, severe, dependence: Status: Acute (2) Periodontitis: Status: Acute Plan He has been doing better. Sphingomonas may be contaminant or may be part of bita sensitive to cephalosporin Would switch to po cephalosporin as well as metronidazole for a week now that is eating well. He needs dentist visit jake.
--- NOTE | 2024-06-09 14:55 | HO.PM.IMPN ---
Subjective Subjective Date of Service: 06/09/24 Interval History: seems similar jaw pain seems improving Review of Systems Review of Systems: Yes all other systems are reviewed and are negative Physical Exam Vital Signs: Vital Signs: Last Vital Signs Temp 97.7 F 06/09/24 07:43 Pulse 90 06/09/24 07:43 Resp 18 06/09/24 07:43 BP 110/64 06/09/24 07:43 Pulse Ox 96 06/09/24 07:43 O2 Del Method Room Air 06/09/24 07:43 BMI result Body Mass Index 42.9 Gen: in no acute distress HEENT: sclera anicteric, moist mucus membranes moist, L mandibular tenderness imrpoving Lungs: clear to auscultation bilaterally Heart: regular rate and rhythm, no murmurs Abd: soft, non-tender, non-distended, obese Ext: no edema Skin: warm/well-perfused neuro: awake ,moves all ext Objective Data Active Medications Acetaminophen (Acetaminophen 325 Mg Tablet) 650 mg PO Q4H PRN PRN Reason: Pain, Mild (Pain Scale 1-3) Last Admin: 06/09/24 08:12 Dose: 650 mg Documented By: JONATAN Calcium Carbonate (Calcium Carbonate 750 Mg Tab.Chew) 750 mg PO BID [facility] Last Admin: 06/09/24 09:25 Dose: Not Given Documented By: JONATAN Non-Admin Reason: Patient Refused Ceftriaxone Sodium (Ceftriaxone Sodium 2 Gm Vial) 2 gm IVPUSH Q24H [facility] Last Admin: 06/08/24 21:31 Dose: 2 gm Documented By: THERESA Enoxaparin Sodium (Enoxaparin Sodium 40 Mg/0.4 Ml Syringe) 40 mg SUBCUT Q24H [facility] Last Admin: 06/09/24 08:06 Dose: 40 mg Documented By: JONATAN Ergocalciferol (Ergocalciferol (Vitamin D2) 1,250 Mcg Capsule) 1,250 mcg PO Mo@0900 [facility] Last Admin: 06/08/24 08:25 Dose: 1,250 mcg Documented By: GRAZKATHIE Folic Acid (Folic Acid 1 Mg Tablet) 1 mg PO DAILY [facility] Last Admin: 06/09/24 08:06 Dose: 1 mg Documented By: JONATAN Gabapentin (Gabapentin 300 Mg Capsule) 300 mg PO TID [facility] Last Admin: 06/09/24 08:05 Dose: 300 mg Documented By: JONATAN Hydrocortisone (Hydrocortisone 1 % Ointment 28.35 Gm Tube) 1 appl TOPICAL BID [facility]; Protocol Last Admin: 06/09/24 08:21 Dose: 1 appl Documented By: JONATAN Lidocaine/Diphenhydr/Alum/Mg/Simeth (Mag&Al/Sim/Diphenhyd/Lidocaine 10 Ml Oral.Susp) 10 ml PO Q4H PRN; Protocol PRN Reason: mouth pain Lorazepam (Lorazepam 2 Mg/Ml Vial) 1 mg IVPUSH TID PRN PRN Reason: Anxiety Magnesium Oxide (Magnesium Oxide 400 Mg Tablet) 400 mg PO DAILY [facility] Last Admin: 06/09/24 08:06 Dose: 400 mg Documented By: JONATAN Metronidazole (Metronidazole 500 Mg Tablet) 500 mg PO Q8H [facility] Last Admin: 06/09/24 08:05 Dose: 500 mg Documented By: JONATAN Multivitamins/Vitamin C (Multivitamin Tablet) 1 tab PO DAILY [facility] Last Admin: 06/09/24 08:06 Dose: 1 tab Documented By: JONATAN Nystatin (Nystatin Powder 15 Gm Bottle) 1 appl TOPICAL BID [facility]; Protocol Last Admin: 06/09/24 08:07 Dose: 1 appl Documented By: JONATAN Ondansetron HCl (Ondansetron Hcl 4 Mg/2 Ml Vial) 4 mg IVPUSH Q6H PRN PRN Reason: Nausea and Vomiting Last Admin: 06/09/24 02:03 Dose: 4 mg Documented By: CHRIS Sodium Chloride (0.9 % Sodium Chloride Flush 3 Ml Syringe) 3 ml IVFLUSH QSHIFT [facility] Last Admin: 06/09/24 08:07 Dose: 3 ml Documented By: JONATAN Thiamine HCl (Thiamine Hcl 100 Mg Tablet) 100 mg PO DAILY [facility] Last Admin: 06/09/24 08:06 Dose: 100 mg Documented By: JONATAN Labs 06/06/24 07:10 06/06/24 07:10 Labs: Laboratory Results - last 24 hr 06/09/24 05:39 Hepatitis C Ab (EIA) Nonreactive HIV 1&2 Ab/P24 Ag 4thGn Nonreactive Assessment and Plan (1) Alcohol abuse: Status: Acute Plan admitted on 06/01/24 day-8 28yo M with AUD + vit D deficiency with secondary hyperPTH presenting with progressive difficulty walking x 6mo, 1d hx of toothache, hx withdrawal found to be febrile + tachycardic with lactic acidosis, hypoNa, hypoK, hypomg, hypoCa; EtOH withdrawal odontogenic infection GNR bacteremia - ceftriaxone + metronidazole 06/01, repeat blood cultures pending follow BCx speciation/susceptibilities pending,outpt dental followup Id followup macrocytic anemia - likely due to EtOH; H+H stable and FOBT negative hypoK hypoCa hypoMg - repleted hypoNa - resolved with fluid resuscitation AUD with withdrawal - today is last day of phenobarbital taper; continue thiamine, folic acid; Addiction Medicine consulted and interested in naltrexone which will be prescribed upon discharge hallucinations - suspect part of alcohol withdrawal; Psych consult pending; did get 1-time dose of olanzapine peripheral neuropathy - likely due to EtOH, improved with gabapentin lactic acidosis - due to alcohol, not sepsis vit D deficiency secondary hyperPTH - replete vitamin D morbid obesity - diet/exercise counseling VTE prophylaxis - enoxaparin dispo - PT evaluation: recommend STR In my clinical judgment, the patient requires continued inpatient hospitalization for the following reasons: IV ABX, bacteremia,awaiting for culture/suceptibility, repeat blood cultures, placement Id follow up Total time managing care of this patient today: 40 minutes. Quality Stroke Does the patient have a stroke diagnosis?: No VTE Prior VTE?: No VTE Risk Level:: Medical - moderate - high VTE Device Contraindication: Treatment Not Indicated VTE Drug Contraindication: N/A - Med Ordered
[2024-06-09 15:30] VITALS: BP 126/70; PULSE 112; RESP 20; TEMP 36; O2SAT 97
[2024-06-09 19:14] VITALS: BP 140/91; PULSE 92; RESP 14; TEMP 36; O2SAT 96
[2024-06-09] MEDS: cefTRIAXone sodium 2 GM VIAL IVPUSH (21:00)
[2024-06-09] MEDS: Mag&Al/Sim/Diphenhyd/Lidocaine 10 ML ORAL.SUSP PO (21:02)
[2024-06-09] MEDS: diphenhydrAMINE HCL 50 MG/ML VIAL 12.5 MG IVPUSH (23:09)
[2024-06-10] MEDS: metroNIDAZOLE 500 MG TABLET PO ×2 (00:18→08:37)
[2024-06-10] MEDS: 0.9 % Sodium Chloride Flush 3 ML SYRINGE IVFLUSH ×2 (00:19→08:39)
[2024-06-10 03:36] VITALS: BP 140/90; PULSE 99; RESP 16; TEMP 36.1; O2SAT 95
[2024-06-10 07:19] VITALS: BP 140/86; PULSE 95; RESP 16; TEMP 36.2; O2SAT 95
[2024-06-10] MEDS: Folic Acid 1 MG TABLET PO (08:37)
[2024-06-10] MEDS: Gabapentin 300 MG CAPSULE PO (08:37)
[2024-06-10] MEDS: Thiamine HCL 100 MG TABLET PO (08:37)
[2024-06-10] MEDS: Multivitamin TABLET 1 TAB PO (08:38)
[2024-06-10] MEDS: Enoxaparin Sodium 40 MG/0.4 ML SYRINGE SUBCUT (08:38)
[2024-06-10] MEDS: Magnesium Oxide 400 MG TABLET PO (08:38)
[2024-06-10] MEDS: Hydrocortisone 1 % Ointment 28.35 GM TUBE 1 APPL TOPICAL (08:41)
[2024-06-10] MEDS: Nystatin Powder 15 GM BOTTLE 1 APPL TOPICAL (08:41)
[2024-06-10] MEDS: LORazepam 2 MG/ML VIAL 1 MG IVPUSH (08:48)
[2024-06-10 10:43] VITALS: BP 112/62; PULSE 104
[2024-06-10] MEDS: Furosemide 20 MG/2 ML VIAL IVPUSH (10:44)
--- NOTE | 2024-06-10 13:17 | MHC.CM.PN ---
DP: PT HAS BEEN MEDICALLY CLEARED FOR DC HOME, NO SERVICES. P.T. REC OP PHYSICAL THERAPY, INFORMATION ON C[facility] PROVIDED WELL DENTISTS AND PCP'S IN THE COMMUNITY THAT ARE CONTRACTED WITH HIS INSURANCE. PT'S FATHER WILL TRANSPORT HOME.
[2024-06-10] MEDS: cefuroxime axetiL 500 MG TABLET PO (13:32)
--- NOTE | 2024-06-10 13:47 | P.DS_ITS ---
DS: Providers Provider Date of Service: 06/10/24 Date of admission: 06/01/24 02:48 Date of discharge: 06/10/24 Primary care physician: None Physician Consults: 06/01/24 03:41 Addiction Medicine Routine Consulting Provider: Addiction Covering Reason for consultation: Alcohol abuse Has provider been notified: No 06/05/24 12:56 Consult to Psychiatry Routine Consulting Provider: Psych Covering Reason for consultation: hallucinations while on EtOH withdrwal 06/08/24 11:47 Consult to Infectious Diseases Routine Consulting Provider: [facility] Reason for consultation: Sphingomonas bacteremia Attending physician on discharge: Su Jacobo Discharging clinician: Su Jacobo DS: Diagnosis Discharge Diagnosis (1) Alcohol abuse: Status: Acute DS: Summary Hospital Course Hospital Course: 28 years old man with past medical history significant for alcohol abuse and vitamin-D deficiency presents to the emergency department complaining of walking difficulty that has been getting worse over the last 6 month, tooth ache since yesterday, dry mouth and blood tests in his mouth. He did not report any headache, shortness on breath, chest pain, abdominal pain, nausea, vomiting or diarrhea. He has been using a walker for ambulation. 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 He is not taking any medication. He is supposed to take vitamin-D and calcium. Denied tobacco smoking. Uses marijuana but denied illicit drug use. Last time he drank alcohol was Saturday. 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 In the ED, he was found to have stable vital signs, there is mild tachycardia and fever of 101.7. There is lactic acidosis, 4.0. Blood workup was remarkable for multiple electrolyte imbalances including hyponatremia, hypokalemia, hypomagnesemia and hypocalcemia. Total CK is normal. LFTs are elevated. EtOH level < 10. Viral testing is negative for COVID-19, influenza and RSV. ED tx: NS 2 L bolus, calcium 2 g IV, thiamine 10 mg p.o., Ativan 2 mg PO, Toradol 30 mg IV, acetaminophen 975 mg p.o., ceftriaxone 1 g IV, KCl IV, Hospital course: 28yo M with AUD + vit D deficiency with secondary hyperPTH presenting with progressive difficulty walking , toothache, hx withdrawal found to be febrile + tachycardic with lactic acidosis, hypoNa, hypoK, hypomg, hypoCa; EtOH withdrawal: Patient was started on IV antibiotics, blood cultures sent, also patient had multiple electrolytic abnormalities(hypokalemia, hypocalcemia, hypomagnesemia)-which are repleted and resolved. Low calcium level when corrected for albumin is seems fine. Patient also found to have vitamin-D deficiency-was started on vitamin-D, given replacement for 6 week after that patient is to get check vitamin-D out patiently and further use accordingly. In addition patient had lactic acidosis and mild elevated LFTs which was thought to be related to alcohol. odontogenic infection-patient was initially started on IV antibiotics ceftriaxone and Flagyl, initial blood culture 1/4growing Sphingomonas, repeated blood culture after that negative at 24 hour. No leukocytosis or fever, patient has jaw pain and pain also improving significantly: Patient will be going home with p.o. Ceftin 500 mg b.i.d.and Flagyl 500 mg p.o. Q 8 hour(both for 12 more days.) Patient was strongly advised to follow-up with dentist out patiently. Alcohol withdrawal: Treated with phenobarb protocol seems to be improved significantly initially had hallucinations probably related to alcohol withdrawal. Has anxiety-psych evaluation Peripheral neuropathy was thought to be secondary to alcohol use, started on gabapentin. Morbid obesity: Patient was encouraged to lose weight, cutdown calories. Patient was strongly advised to get outpatient PCP appointment, check labs BMP, lft and electrolytes outpatient, also follow up with the dentist. Complete course of antibiotics as above. plan: Complete p.o. Ceftin 500 mg b.i.d.and Flagyl 500 mg p.o. Q 8 hour(both for 12 more days.) Patient was strongly advised to follow-up with dentist out patient. continue gabapentin 300 mg po bid -2 week supply given. naltrexone 25 mg daily for 1 month supply given. magnesium 400mg daily vitamin d 1250 mcg -6 weeks supply given, check vitamin d levels in 6 weeks . strongly encouraged for weight loss(cutdown calories and exercise), strongly advised also to abstain from alcohol. check labs BMP, lft and electrolytes outpatient. also follow up with the dentist.Patient was strongly advised to get outpatient PCP appointment( psych will help with it also), follow up with psych,Complete course of antibiotics as above. Patient was also told to follow-up with outpatient PT, information given by case fitter. Above management discussed with the patient and his father in detail length they both understand and in agreement with the above plan, time spent 40 minute. Time Attestation Total time managing care of this patient today: 40 mintues. Discharge Coordination Time (in mins): 40 min Quality: Safe Use of Opioids Does Pt have an Active Cancer Diagnosis on the Problem List?: No Quality: Stroke Does the patient have a stroke diagnosis?: No Physical Exam Vital Signs: Vital Signs: Last Vital Signs Temp 97.2 F 06/10/24 07:19 Pulse 104 H 06/10/24 10:43 Resp 16 06/10/24 07:19 BP 112/62 06/10/24 10:43 Pulse Ox 95 06/10/24 07:19 O2 Del Method Room Air 06/10/24 07:19 BMI result Body Mass Index 42.9 Gen: in no acute distress HEENT: sclera anicteric, moist mucus membranes moist, L mandibular tenderness imrpoved. Lungs: clear to auscultation bilaterally Heart: regular rate and rhythm, no murmurs Abd: soft, non-tender, non-distended, obese Ext: no edema Skin: warm/well-perfused neuro: awake ,moves all ext DS: Data Data Completed and Pending Completed studies during hospitalization [Text1]: Procedures Detoxification Services for Substance Abuse Treatment (08/24/23) Labs on day of discharge: Preliminary micro results at discharge 06/08/24 14:07 Blood Culture - Preliminary Blood - Venous No growth after 24 hours. 06/08/24 13:15 Blood Culture - Preliminary Blood - Venous No growth after 24 hours. 05/31/24 18:26 Blood Culture - Preliminary Blood - Venous Sphingomonas paucimobilis Imaging Chest x-ray: Radiologist's impression: ITS Impressions Face CT 05/31/24 19:08 IMPRESSION: 1. No evidence of acute fracture of the maxillofacial bones. 2. Multifocal odontogenic disease, most notably involving the mandibular left 1st molar. Mild soft tissue edema of the outer gums along the left available process of the mandible. No demonstrated discrete drainable fluid collection. 3. Moderately prominent bilateral levels Ib lymph nodes, likely reactive in nature. Electronically signed by: Garo Weaver DO 05/31/2024 09:28 PM EDT RP Discharge Plan Discharge Anticipated Discharge Date/Time: 06/10/24 13:11 Patient Disposition: Home, Self-Care Discharge Diagnosis: odontogenic infection Referrals: [facility] [Other] - 1 Week (OUTPATIENT REHAB SERVICES) Physician,None [Primary Care Provider] - 1 Week Discharge Medications: New ergocalciferol (vitamin D2) [Vitamin D2] 1,250 mcg (50,000 unit) Capsule 1,250 mcg PO Mo@0900 Qty: 6 0RF thiamine mononitrate (vit B1) 100 mg Tablet 100 mg PO DAILY Qty: 30 0RF hydrocortisone 1 % Ointment 1 appl topical BID Qty: 1 0RF Protocol: Apply to: Apply to: rashes from sticker metronidazole 500 mg tablet 500 mg PO Q8H 12 Days Qty: 36 0RF folic acid 1 mg Tablet 1 mg PO DAILY Qty: 30 0RF magnesium oxide 400 mg (241.3 mg magnesium) Tablet 400 mg PO DAILY Qty: 30 0RF multivitamin [Daily-Preeti] Tablet 1 tab PO DAILY Qty: 30 0RF nystatin 100,000 unit/gram Powder 1 appl topical BID Qty: 1 0RF Protocol: Apply to: Apply to: groin and underarms gabapentin 300 mg Capsule 300 mg PO BID Qty: 30 0RF cefuroxime axetil 500 mg Tablet 500 mg PO BID Qty: 24 0RF No Action No Known Home Meds Discharge Orders: Discharge Order (Routine); Ordered 06/10/24 Ordered By: Su Jacobo Diet: Advance to usual diet Activity on Discharge: As tolerated Stand Alone Forms: Patient Portal Discharge page Print Language: Amharic Care Plan Goals: 28yo M with AUD + vit D deficiency with secondary hyperPTH presenting with progressive difficulty walking , toothache, hx withdrawal found to be febrile + tachycardic with lactic acidosis, hypoNa, hypoK, hypomg, hypoCa; EtOH withdrawal: Patient was started on IV antibiotics, blood cultures sent, also patient had multiple electrolytic abnormalities(hypokalemia, hypocalcemia, hypomagnesemia)-which are repleted and resolved. Low calcium lev el when corrected for albumin is seems fine. Patient also found to have vitamin-D deficiency-was started on vitamin-D, given replacement for 6 week after that patient is to get check vitamin-D out pat iently and further use accordingly. In addition patient had lactic acidosis and mild elevated LFTs which was thought to be related to alcohol. odontogenic infection-patient was initially started on IV antibiotics ceftriaxone and Flagyl, initial blood culture 1/4growing Sphingomonas, repeated blood culture after that negative at 24 hour. No leukocytosis or fever, patient has jaw pain and pain also improving significantly: Patient will be going home with p.o. Ceftin 500 mg b.i.d.and Flagyl 500 mg p.o. Q 8 hour(both for 12 more days.) Patient was strongly advised to follow-up with dentist out patiently. Alcohol withdrawal: Treated with phenobarb protocol seems to be improved significantly initially had hallucinations probably related to alcohol withdrawal. He has more craving episode rather than anxiety-discussed with psych we will avoid benzodiazepines and currently recommended naltrexone 25 mg daily. Peripheral neuropathy was thought to be secondary to alcohol use, started on cecilia apentin. Morbid obesity: Patient was encouraged to lose weight, cutdown calories. Patient was strongly advised to get outpatient PCP appointment, check labs BMP, lft and electrolytes outpatient, also follow up with the dentist. Complete course of antibiotics as above. Health Concerns: Complete p.o. Ceftin 500 mg b.i.d.and Flagyl 500 mg p.o. Q 8 hour(both for 12 more days.) Patient was strongly advised to follow-up with dentist out patient. continue gabapentin 300 mg po bid -2 week supply given. naltrexone 25 mg daily for 1 month supply given. magnesium 400mg daily vitamin d 1250 mcg -6 weeks supply given, check vitamin d levels in 6 weeks . strongly encouraged for weight loss(cutdown calories and exercise), strongly advised also to abstain from alcohol. check labs BMP, lft and electrolytes outpatient. also follow up with the dentist.Patient was strongly advised to get outpatient PCP appointment( psych will help with it also), follow up with psych,Complete course of antibiotics as above. Patient was also told to follow-up with outpatient PT, information given by case fitter. Plan of Treatment: As above. Assessment: As above.
--- NOTE | 2024-06-10 16:53 | PM.PSYCN ---
History of Present Illness Date of Service: 06/10/24 Chief Complaint: Multiple electrolyte imbalances Reason for Consult: Hallucinations during alcohol withdrawal Requesting physician: Su Jacobo Discussed with referring provider: Yes Sources of Information: patient interviewed, chart reviewed and crisis/core team assessment reviewed Additional Sources of Information: Pt's father, with whom he lives with, present during our meeting. HPI Narrative: 28 yo male, history of anxiety, ADHD presented on 05/31/24 to ER with report of dental pain, fever of 101.7, malnutrition, weakness, decrease in ambulation. Pt found to have a dental infection requiring antibiotics, alcohol withdrawal which was managed with a phenobarbital detox and peripheral neuropathy from alcoholism which was treated with gabapentin. He received IV fluids, antibiotics and electrolyte replacement. Consult initially on 06/05 for hallucinations during withdrawal. Today, pt has completed withdrawal and is preparing to return to his home that he shares with his father, grandmother and his girlfrend. Reports he has just been approved for insurance and will be chosing a PCP so he will be able to return to out patient psychiatric care. Reports I go on benders . The last one was carlos de martinez weekend. Then I stop for a few weeks, but this time it was radical and way out of control Describes loss of ability to ambulate, loss of some motor functions. They told me I have been in alcohol poisoning for the past several months . Describes himself as an anxious person. Started Adderall at age 5 and stopped and restarted in high school. It made it all OK . States he lost his insurance and was no longer able to receive this medication. I have tried to wing it. Other meds have not worked . Adderall manages my anxiety too. I was with [facility] for 12 years for ADD, ODD and when I lost my insurance and meds I have used alcohol just to get by. Reports an increase in sx at age 25, around the beginning of COVID. 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 States partner works in a liquor store and she has stopped drinking. Current experience pt reports has been frightening and he plans to stop as well. Reports feeling improved and happier but anxious to leave, is my happiness false?, time will tell. Denies SI, HI, AH. VH. No sx of benjamin, psychosis Past Psychiatric History: IP: Denies OP: Several year hx with [employer] Trials: Adderall 30 mg XR daily for several years which was very effective pt reports. Medical Evaluation Reviewed: Yes Review of Systems Review of Systems Reports feeling improved with medical treatment Yes all other systems are reviewed and are negative [facility] Medical History (Updated 06/11/24 @ 16:17 by Angela Terrell APRN) Anxiety ADHD Periodontitis Alcoholism Hernia Surgical History H/O gastric sleeve Family History: Mother- Alcoholism Sister-hx of emotional breakdown. Social History: Born in [place]. One sister, estranged, Lives in [place]. Lives with father, grandmother and girlfriend. Mom lives in [place] No children. Girlfriend has 3 children but does not have custody. 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 Substance History: Alcohol Cocaine - once weekly Trauma History: Affirms Diagnostics Vital Signs (24Hr): Vital Signs - 24 hr 06/09/24 19:14 06/10/24 03:36 06/10/24 07:19 Temperature 96.8 F 97 F 97.2 F Pulse Rate 92 99 95 Respiratory Rate 14 16 16 Blood Pressure 140/91 H 140/90 H 140/86 H Pulse Oximetry 96 95 95 Oxygen Delivery Method Room Air Room Air Room Air 06/10/24 10:43 Temperature Pulse Rate 104 H Respiratory Rate Blood Pressure 112/62 Pulse Oximetry Oxygen Delivery Method BMI result Body Mass Index 42.9 Labs 06/06/24 07:10 06/06/24 07:10 Labs: Laboratory Results - last 48 hr 06/09/24 05:39 Hepatitis C Ab (EIA) Nonreactive HIV 1&2 Ab/P24 Ag 4thGn Nonreactive Imaging Radiology Impressions: ITS Impressions Face CT 05/31/24 19:08 IMPRESSION: 1. No evidence of acute fracture of the maxillofacial bones. 2. Multifocal odontogenic disease, most notably involving the mandibular left 1st molar. Mild soft tissue edema of the outer gums along the left available process of the mandible. No demonstrated discrete drainable fluid collection. 3. Moderately prominent bilateral levels Ib lymph nodes, likely reactive in nature. Electronically signed by: Garo Weaver DO 05/31/2024 09:28 PM EDT RP Mental Status Exam Mental Status Exam Patient Appearance: Appropriate Patient Orientation: Person, Place, Time and Situation Level of Consciousness: Alert Patient Behavior: Appropriate, Talkative and Good Eye Contact Mood Description: Appropriate and Apprehensive Affect Description: Appropriate Patient Cognition Impaired: No Ability to Follow Directions: Good Speech Pattern: Spontaneous Speech Memory Description: Episodic Impaired Hallucinations: None Delusions: Not Present Thought Process: Intact and Goal Oriented Thought Content: positive for Intact and positive for Goal Oriented Depressive Symptoms: Low Self Esteem Judgement: Good Medications Allergies Allergies Allergy/AdvReac Type Severity Reaction Status Date / Time amoxicillin Allergy Unknown hives Verified 05/31/24 15:39 Penicillins [PENICILLINS] Allergy Unknown ANAPHYLAXIS Verified 05/31/24 15:39 red dye [RED DYE] Allergy Unknown UNKNOWN Verified 05/31/24 15:39 shrimp [SHRIMP] Allergy Unknown UNKNOWN Verified 05/31/24 15:39 Sulfa (Sulfonamide Allergy Unknown hives Verified 05/31/24 15:39 Antibiotics) sulfamethoxazole Allergy Unknown UNKNOWN Verified 05/31/24 15:39 [From BACTRIM] trimethoprim [From BACTRIM] Allergy Unknown UNKNOWN Verified 05/31/24 15:39 Biaxin Allergy Unknown hives Uncoded 05/31/24 15:39 SEAFOOD Allergy Unknown UNKNOWN Uncoded 05/31/24 15:39 Assessment & Plan Assessment & Plan (1) Alcohol use disorder, severe, dependence: Status: Acute Code(s): F10.20 - Alcohol dependence, uncomplicated (2) ADHD: Status: Acute Code(s): F90.9 - Attention-deficit hyperactivity disorder, unspecified type (3) Anxiety: Status: Acute Code(s): F41.9 - Anxiety disorder, unspecified (4) Cocaine abuse: Status: Acute Code(s): F14.10 - Cocaine abuse, uncomplicated Plan Anxiety, ADHD, hx of ODD, Alcohol Use Disorder, Dependence, Cocaine Abuse. Pt will discharge today. He has just received active health insurance and will choose a PCP when at home. Pt and father have our contact information, we will be in contact with out patient options for continued treatment. At this time, pt declines transfer for longer term rehab, CSS. He will accept OP therapy and psychopharmacolgy . Total time managing care of this patient today ____ minutes. Patient educated on: diagnosis, medication risk/benefits, substance abuse, therapeutic strategies and medical condition Guardian/Caregiver educated on: diagnosis, medication risk/benefits, substance abuse, therapeutic strategies and medical condition Informed Consent: understands
== END 2024-06-10 15:31 | disposition home or self-care (01) | DRG 114 ==
LOC: HO.ED 06-01 02:36 → HO.EDOVER 06-01 03:18 → HO.IMC 06-01 13:30 → HO.S3 06-07 15:27
PROVIDERS: Family Medicine; Physician Assistant Medical; Admitting Provider Internal Medicine; Emergency Provider Internal Medicine; Visit Provider Internal Medicine
DX: K05.30 Chronic periodontitis, unspecified (principal); E87.21 Acute metabolic acidosis; F10.231 Alcohol dependence with withdrawal delirium; R78.81 Bacteremia; E83.51 Hypocalcemia; D50.9 Iron deficiency anemia, unspecified; F14.10 Cocaine abuse, uncomplicated; G62.1 Alcoholic polyneuropathy; N25.81 Secondary hyperparathyroidism of renal origin; K02.9 Dental caries, unspecified; E83.42 Hypomagnesemia; F90.9 Attention-deficit hyperactivity disorder, unspecified type; F41.9 Anxiety disorder, unspecified; E87.6 Hypokalemia; E66.01 Morbid (severe) obesity due to excess calories; Z68.41 Body mass index [BMI] 40.0-44.9, adult; Z20.822 Contact with and (suspected) exposure to COVID-19; Z79.899 Other long term (current) drug therapy
CPT/HCPCS: 0241U; 36415; 70486; 80048; 80053; 80307; 81001; 82272; 82306; 82550; 82607; 82728; 82746; 83010; 83540; 83605; 83615; 83735; 83970; 84443; 85007; 85014; 85018; 85027; 85045; 85610; 85652; 86140; 86803; 86850; 86880; 86900; 86901; 87040; 87076; 87086; 87186; 87205; 87389; 93005; 97116; 97162; 97530; 99285; J0613; J0696; J1200; J1650; J1836; J1885; J1940; J2060; J2405; J2560; J3411; J3475; J3480; J7120

== ENCOUNTER → 2024-06-01 02:48 | Outpatient (BNV) | payer MEDICAID, SELFPAY | PROVIDERS: Admitting Provider Internal Medicine; Emergency Provider Internal Medicine; Visit Provider Internal Medicine | DX: F10.20 Alcohol dependence, uncomplicated (principal); K05.30 Chronic periodontitis, unspecified | CPT/HCPCS: 99222 ==

== ENCOUNTER → 2024-06-01 02:48 | Outpatient (BNV) | payer MEDICAID, SELFPAY | PROVIDERS: Admitting Provider Internal Medicine; Emergency Provider Internal Medicine; Visit Provider Internal Medicine | DX: F10.139 Alcohol abuse with withdrawal, unspecified (principal) | CPT/HCPCS: 99223; 99232; 99239; 99499 ==

== ENCOUNTER → 2024-06-01 02:48 | Outpatient (BNV) | payer MEDICAID, SELFPAY | PROVIDERS: Admitting Provider Internal Medicine; Emergency Provider Internal Medicine; Visit Provider Nurse Practitioner Psychiatric/Mental Health | DX: F10.20 Alcohol dependence, uncomplicated (principal) | CPT/HCPCS: 99232 ==

== ENCOUNTER → 2024-06-01 02:48 | Outpatient (BNV) | payer OTHER, SELFPAY | PROVIDERS: Admitting Provider Internal Medicine; Emergency Provider Internal Medicine; Visit Provider Clinical Nurse Specialist Psychiatric/Mental Health, Adult | DX: F14.10 Cocaine abuse, uncomplicated (principal); F10.20 Alcohol dependence, uncomplicated; F90.9 Attention-deficit hyperactivity disorder, unspecified type; F41.9 Anxiety disorder, unspecified | CPT/HCPCS: 99232 ==

== ENCOUNTER 2024-06-17 13:30 | Outpatient (AMB) | payer MEDICAID, SELFPAY ==
--- NOTE | 2024-06-17 13:31 | A.OFFVISCC_ITS ---
Intake Visit Reasons: MAT Allergies amoxicillin Allergy (Unknown, Verified 05/31/24 15:39) hives Penicillins [PENICILLINS] Allergy (Unknown, Verified 05/31/24 15:39) ANAPHYLAXIS red dye [RED DYE] Allergy (Unknown, Verified 05/31/24 15:39) UNKNOWN shrimp [SHRIMP] Allergy (Unknown, Verified 05/31/24 15:39) UNKNOWN Sulfa (Sulfonamide Antibiotics) Allergy (Unknown, Verified 05/31/24 15:39) hives sulfamethoxazole [From BACTRIM] Allergy (Unknown, Verified 05/31/24 15:39) UNKNOWN trimethoprim [From BACTRIM] Allergy (Unknown, Verified 05/31/24 15:39) UNKNOWN Biaxin Allergy (Unknown, Uncoded 05/31/24 15:39) hives SEAFOOD Allergy (Unknown, Uncoded 05/31/24 15:39) UNKNOWN HPI HPI MAT: Details: Patient presents for follow up via telehealth Seen by this health science writer and measurer while medically admitted for alcohol use disorder Started on Naltrexone shortly after getting home Has been home now about 10 days. Reports he is basically limited to his home due to pain, ambulation and requirement of having someone with him Father and girlfriend have been helpful in helping care for him No issues since starting Naltrexone Denies any alcohol use PCP appt in December, but should be seen sooner due to recent hospitalization [facility] Medical History (Updated 06/18/24 @ 00:03 by Santana Alfonso) Alcohol use disorder, severe, dependence Electrolyte imbalance Acidosis, lactic Weakness Acute hypokalemia Hypomagnesemia Alcohol abuse Obesity Hypocalcemia Anxiety ADHD Periodontitis Alcoholism Hernia Surgical History H/O gastric sleeve Social History Household Members: Family Housing: House Do you presently have visiting nurse or other home services: No Alcohol intake: current Alcohol type: hard liquor Comment: refusing fall risk intervention. Patient Tobacco Use Status: Never used Tobacco Substance Use Type: Marijuana service: No Review of Systems Const Reports as per HPI, Reports difficulty sleeping, Reports malaise and Reports weakness Musc Reports abnormal gait and Reports numbness Neuro Reports abnormal gait, Reports numbness and Reports weakness Telehealth Telehealth Telehealth Platform: Telephone Location of provider rendering services: practice address Location of patient: address on file Patient Identification confirmed using: Name, : Yes Telehealth method: voice only Patient verbally consented to treatment: Yes Patient verbally consented to billing insurance company: Yes Minutes spent on Phone/Video with Pt.: 20 Assessment & Plan Assessment & Plan (1) Alcohol use disorder, severe, dependence: Code(s): F10.20 - Alcohol dependence, uncomplicated Category: Medical Plan: * continue naltrexone * relapse prevention discussion * recovery supports reviewed --will follow up on this at next visit * discussed case with patient navigation RN --she will follow up with patient regarding appt
== END 2024-06-17 14:27 | disposition home or self-care (01) ==
PROVIDERS: Visit Provider Nurse Practitioner Psychiatric/Mental Health
DX: F10.20 Alcohol dependence, uncomplicated (principal)
CPT/HCPCS: 99214

== ENCOUNTER → 2024-06-17 13:30 | Outpatient (BNVA) | payer MEDICAID, SELFPAY | PROVIDERS: Visit Provider Nurse Practitioner Psychiatric/Mental Health ==

== ENCOUNTER 2024-06-29 10:58 | Outpatient (AMB) | payer MEDICAID, SELFPAY ==
--- NOTE | 2024-06-29 11:08 | A.OFFPC_ITS ---
Vital Signs 06/29/24 11:15 Height 5 ft 10 in Weight 290 lb BMI 41.6 BP 116/59 L Blood Pressure Location Lt brachial Position Sitting Respiration 16 Pulse 109 H Pulse Source Pulse Oximeter Temp 98.4 F Temp Source Temporal Artery Scan Pulse Oximetry (%) 99 Oxygen Delivery Method Room Air Intake Visit Reasons: dfu/medications per brandy(nn) district plant engineer appt in december Intake Note: ED d/c Allergies amoxicillin Allergy (Unknown, Verified 06/29/24 11:11) hives Penicillins [PENICILLINS] Allergy (Unknown, Verified 06/29/24 11:11) ANAPHYLAXIS red dye [RED DYE] Allergy (Unknown, Verified 06/29/24 11:11) UNKNOWN shrimp [SHRIMP] Allergy (Unknown, Verified 06/29/24 11:11) UNKNOWN Sulfa (Sulfonamide Antibiotics) Allergy (Unknown, Verified 06/29/24 11:11) hives sulfamethoxazole [From BACTRIM] Allergy (Unknown, Verified 06/29/24 11:11) UNKNOWN trimethoprim [From BACTRIM] Allergy (Unknown, Verified 06/29/24 11:11) UNKNOWN Biaxin Allergy (Unknown, Uncoded 05/31/24 15:39) hives SEAFOOD Allergy (Unknown, Uncoded 05/31/24 15:39) UNKNOWN HPI dfu/medications per brandy(nn) district plant engineer appt in december HPI Details 28 y/o male presents for a hospital [facility] f/u. Had presented with complaints of difficulty walking, EtOH withdrawal. Alcohol withdrawal treated with phenobarb protocol, initially had halluctionations most likely related to withdrawal. Also had jaw pain/dental infection. Difficulty walking/neuropathy thought to be secondary to EtOH use. Was started on gabapentin. Reports ongoing jaw pain. Notes he does have an appt. with a dentist. Does not have a therapist or psychiatrist for his mental health. Notes he had been in therapy for 12 years and is reluctant about going back, but he notes it could be good for him. [facility] Medical History (Updated 06/29/24 @ 11:47 by Miguel Rebolledo MD) Alcohol use disorder, severe, dependence Electrolyte imbalance Acidosis, lactic Weakness Acute hypokalemia Hypomagnesemia Alcohol abuse Obesity Hypocalcemia Anxiety ADHD Periodontitis Alcoholism Hernia Surgical History H/O gastric sleeve Social History Household Members: Family Housing: House Do you presently have visiting nurse or other home services: No Alcohol intake: current Alcohol type: hard liquor Comment: refusing fall risk intervention. Patient Tobacco Use Status: Never used Tobacco Substance Use Type: Marijuana service: No Questionnaire PHQ-9 Over the last 2 weeks, how often have you been bothered by any of the following problems? 1. Little interest or pleasure in doing things: more than half the days 2. Feeling down, depressed, or hopeless: several days 3. Trouble falling or staying asleep, or sleeping too much: nearly every day 4. Feeling tired or having little energy: nearly every day 5. Poor appetite or overeating: not at all 6. Feeling bad about yourself - or that you are a failure or have let yourself or your family down: not at all 7. Trouble concentrating on things, such as reading the newspaper or watching television: nearly every day 8. Moving or speaking so slowly that other people could have noticed. Or the opposite - being so fidgety or restless that you have been moving around a lot more than usual: not at all 9. Thoughts that you would be better off or of hurting yourself in some way: not at all Total score: 12 Source: Developed by Drs. Badnar Kwong, Donna Romero, Kirill Bell and colleagues, with an educational ortiz from [employer]. Thrive Questionnaire Date Thrive assessed: 06/02/24 I am a: Patient What is your living situation today?: I have a steady place to live Within the past 12 months, did the food you bought not last and you didn't have the money to get more?: Never true Within the past 12 months, did you worry whether your food would run out before you got money to buy more?: Never true Do you have trouble paying for medicines?: No Do you have trouble getting transportation to medical appointments?: I choose not to answer this question Do you have trouble paying your heating and electricity bill?: No Do you have trouble taking care of your child, family member or friend?: No Do you have trouble with day-to-day activities such as bathing, preparing meals, shopping, managing finances, etc.?: Yes Are you currently unemployed and looking for a job?: Yes Are you interested in more education?: No Please select the resources that you would like help with: Transportation Currently or been in a relationship where the following occur: No concerns reported THRIVE Score: 0 AUDIT C Alcohol Use Questionnaire (AUDIT-C) 1. How often do you have a drink containing alcohol?: Never Total Score: 0 ODETTE-7 AMB Questionnaire ODETTE-7 Feeling nervous, anxious, or on edge: 3 = Nearly every day Not being able to stop or control worryin = Nearly every day Worrying too much about different things: 3 = Nearly every day Trouble relaxin = More than half the days Being so restless that it is hard to sit still: 2 = More than half the days Becoming easily annoyed or irritable: 1 = Several days Feeling afraid as if something awful might happen: 1 = Several days Total ODETTE-7 score (0-4 normal; 5-9 mild; 10-14 moderate; 15-21 severe): 15 Source: Developed by Drs. Bandar Kwong, Donna Romero, Kirill Bell and colleagues, with an educational ortiz from [employer]. Physical exam (Primary Care) Vital Signs: Last Vital Signs Temp 98.4 F 06/29/24 11:15 Pulse 109 H 06/29/24 11:15 Resp 16 06/29/24 11:15 BP 116/59 L 06/29/24 11:15 Pulse Ox 99 06/29/24 11:15 Oxygen Delivery Method Room Air 06/29/24 11:15 BMI result Body Mass Index 41.6 Tobacco/Smoking Status: Tobacco use Status Patient Tobacco Use Status Never used Tobacco 06/29/24 11:08 PHQ-9: PHQ-9 Score PHQ-9: Total score 12 06/29/24 11:25 Thrive Assessment: Date of Thrive Assessment Date Thrive assessed 06/02/24 06/29/24 11:08 Currently or been in a relationship where the following occur: No concerns reported Coding Level of Care Code New Pt Level 3 (17479) Diagnoses Dental infection K04.7 Alcohol abuse F10.10 Anxiety F41.9 Tachycardia R00.0 Unsteady gait R26.81 Numbness of upper extremity R20.0 Assessment & Plan Assessment & Plan (1) Dental infection: Code(s): K04.7 - Periapical abscess without sinus Category: Medical Plan: Recent?dental?infection Patient?has?been?taking?antibiotics?and?has?seen?the?dentist?once.??He?has?follo w-up?appointment?scheduled Continue?antibiotic?and?follow-up?with?dentist?as?recommended (2) Alcohol abuse: Code(s): F10.10 - Alcohol abuse, uncomplicated Category: Social Hx Plan: Significant?history?of?alcohol?abuse?and?withdrawal. Also?has consequent vitamin?and?electrolyte?abnormality Check?labs Patient?has?remained?abstinent?since?his?visit?to?the?emergency?department.??Enc ouraged?ongoing?abstinence. Offered?referral?to?therapist?and?patient?accepts?this.??Also ?briefly?discussed?the?comprehensive?Care?Clinic. Referred?to?[facility]?outpatient?psychiatric?team (3) Anxiety: Code(s): F41.9 - Anxiety disorder, unspecified Category: Medical Plan: Referred?as?above (4) Tachycardia: Code(s): R00.0 - Tachycardia, unspecified Category: Medical Plan: Tachycardia?on?initial?presentation Patient?has?concerns?that?he?was?told?he??had?a?heart?attack EKG?shows?normal?sinus?rhythm,?normal?axis, normal?interval, no?hypertrophy, no?ST-T-wave?changes, no?Q-waves. Normal?EKG Reassured?patient (5) Unsteady gait: Code(s): R26.81 - Unsteadiness on feet Category: Medical Plan: Numbness?and?weakness?in?legs?and?arms. Checking?labs Start?occupational?therapy?for?upper?extremities/hands?and?physical?therapy?for? lower?extremities?and?balance. (6) Numbness of upper extremity: Code(s): R20.0 - Anesthesia of skin Category: Medical Plan: As?above Orders: Orders AMB EKG-In Office Today R00.0 - Tachycardia, unspecified OT Evaluation and Treatment Today R20.0 - Anesthesia of skin, R29.898 - Other symptoms and signs involving the musculoskeletal system Comprehensive Met. Panel Today F10.10 - Alcohol abuse, uncomplicated Vitamin B12 and Folate Today E53.8 - Deficiency of other specified B group vitamins, G62.9 - Polyneuropathy, unspecified Vitamin D 25-OH Total Today E55.9 - Vitamin D deficiency, unspecified, G62.9 - Polyneuropathy, unspecified PT Evaluation and Treatment Today G62.9 - Polyneuropathy, unspecified, R26.81 - Unsteadiness on feet, R29.898 - Other symptoms and signs involving the musculoskeletal system Complete Blood Count Auto Diff Today K04.7 - Periapical abscess without sinus, Z00.00 - Encounter for general adult medical examination without abnormal findings Referrals Psychiatry Outpatient Consultation Service F10.10 - Alcohol abuse, uncomplicated, F41.9 - Anxiety disorder, unspecified
[2024-06-29 11:15] VITALS: BP 116/59; PULSE 109; RESP 16; TEMP 36.9; O2SAT 99; BMI 41.6
== END 2024-06-29 11:47 | disposition home or self-care (01) ==
LOC: HO.HMCFM 10:59
PROVIDERS: Visit Provider Family Medicine
DX: K04.7 Periapical abscess without sinus (principal); F10.10 Alcohol abuse, uncomplicated; F41.9 Anxiety disorder, unspecified; R00.0 Tachycardia, unspecified; R26.81 Unsteadiness on feet; R20.0 Anesthesia of skin

== ENCOUNTER → 2024-06-29 10:58 | Outpatient (BNVA) | payer MEDICAID, SELFPAY | PROVIDERS: Visit Provider Family Medicine | DX: K04.7 Periapical abscess without sinus (principal); F10.10 Alcohol abuse, uncomplicated; F41.9 Anxiety disorder, unspecified; R00.0 Tachycardia, unspecified; R26.81 Unsteadiness on feet; R20.0 Anesthesia of skin | CPT/HCPCS: 36415; 80053; 82306; 82607; 82746; 85025; 96127; 99202 ==

== ENCOUNTER 2024-06-29 11:58 | Outpatient (REF) | payer MEDICAID, SELFPAY ==
[2024-06-29 14:40] LABS: MANUAL DIFF FLAG NO
[2024-06-29 14:49] LABS: Basophils Absolute Auto 0.1 X10*3/uL (0.0-0.2); Basophils Percent Auto 0.9 % (0-2); Eosinophils Absolute Auto 0.2 X10*3/uL (0.0-0.4); Eosinophils Percent Auto 2.8 % (0-4); Hematocrit 36.5 % (42.0-52.0); Hemoglobin 11.7 g/dl (14.0-18.0); Imm Gran Abs Auto 0.02 X10*3/uL (0.00-0.03); Imm Gran Pct Auto 0.3 % (0.0-0.4); Lymphocytes Absolute Auto 1.8 X10*3/uL (1.2-4.9); Lymphocytes Percent Auto 31.1 % (20-40); Mean Corpuscular HGB Conc 32.1 g/dl (31.0-36.0); Mean Corpuscular Volume 102.8 fL (80.0-98.0); Monocytes Absolute Auto 0.5 X10*3/uL (0.1-1.2); Neutrophils Absolute Auto 3.3 x10*3/uL (2.0-8.3); Neutrophils Percent Auto 56.9 % (45-73); Platelet Count 499 X10*3/uL (160-400); Red Blood Count 3.55 X10*6/uL (4.60-5.80); Red Cell Distribution Width 18.5 % (11.0-16.0); White Blood Count 5.8 X10*3/uL (4.8-10.8)
[2024-06-29 16:14] LABS: Alanine Aminotransferase 16 U/L (0-40); Albumin Level 3.2 g/dL (3.5-5.0); Alkaline Phosphatase 97 U/L (39-117); Anion Gap 12 (12-20); Aspartate Amino Transferase 45 U/L (5-37); Bilirubin Total 0.5 mg/dL (0.0-1.0); Blood Urea Nitrogen 9 mg/dL (9-16); Calcium 9.4 mg/dL (8.4-10.2); Carbon Dioxide 29 mmol/L (22-29); Chloride 107 mmol/L (96-108); Estimated Glomerular Filt Rate > 60; Glucose Random 82 mg/dL (60-115); Sodium 144 mmol/L (135-145); Total Protein 6.5 g/dL (6.5-8.0)
[2024-06-29 16:33] LABS: Vitamin D 25-OH Total 22.8 ng/mL (>30)
[2024-06-29 17:09] LABS: Folate 6.2 ng/mL (> or = 4.0); Vitamin B12 483 pg/mL (200-900)
== END 2024-06-29 11:59 | disposition home or self-care (01) ==
LOC: HO.WFDLDS 11:58
PROVIDERS: Visit Provider Family Medicine
DX: Z00.00 Encounter for general adult medical examination without abnormal findings (principal); E53.8 Deficiency of other specified B group vitamins; G62.9 Polyneuropathy, unspecified; E55.9 Vitamin D deficiency, unspecified; K04.7 Periapical abscess without sinus; F10.10 Alcohol abuse, uncomplicated
CPT/HCPCS: 36415; 80053; 82306; 82607; 82746; 85025

== ENCOUNTER → 2024-07-15 13:03 | Outpatient (BNVA) | payer SELFPAY | PROVIDERS: Visit Provider Nurse Practitioner Psychiatric/Mental Health ==

== ENCOUNTER → 2024-07-17 11:09 | Outpatient (AMB) | payer SELFPAY ==
--- NOTE | 2024-07-17 11:06 | A.OFFPC_ITS ---
Intake Visit Reasons: f/u anxiety/depression, labs via telemedicine Intake Note: f/u labs and anxiety and depression Allergies amoxicillin Allergy (Unknown, Verified 07/17/24 11:06) hives Penicillins [PENICILLINS] Allergy (Unknown, Verified 07/17/24 11:06) ANAPHYLAXIS red dye [RED DYE] Allergy (Unknown, Verified 07/17/24 11:06) UNKNOWN shrimp [SHRIMP] Allergy (Unknown, Verified 07/17/24 11:06) UNKNOWN Sulfa (Sulfonamide Antibiotics) Allergy (Unknown, Verified 07/17/24 11:06) hives sulfamethoxazole [From BACTRIM] Allergy (Unknown, Verified 07/17/24 11:06) UNKNOWN trimethoprim [From BACTRIM] Allergy (Unknown, Verified 07/17/24 11:06) UNKNOWN Biaxin Allergy (Unknown, Uncoded 05/31/24 15:39) hives SEAFOOD Allergy (Unknown, Uncoded 05/31/24 15:39) UNKNOWN Medication List - Last Reconciled 07/17/24 by Miguel Rebolledo MD cefuroxime axetil 500 mg PO BID ergocalciferol (vitamin D2) (Vitamin D2) 1,250 mcg PO Mo@0900 folic acid 1 mg PO DAILY gabapentin 300 mg PO BID hydrocortisone 1% 1 appl See Protocol topical BID magnesium oxide 400 mg PO DAILY metronidazole 500 mg PO Q8H 12 days multivitamin (Daily-Preeti tablet) 1 tab PO DAILY naltrexone 50 mg PO DAILY nystatin 1 appl See Protocol topical BID thiamine mononitrate (vit B1) 100 mg PO DAILY HPI f/u anxiety/depression, labs via telemedicine HPI Details 28 y/o male presents to f/u labs and anx iety/depression. Labs drawn 06/29/24. Reviewed labs with pt. Ongoing anemia, improving. Liver enzymes improved - ALT 16, AST 45. Low Vitamin D 22.8. Pt notes he remains abstinent with EtOH. Notes he feels he has not been able to be more social without going out to drink which has been affecting his mood. He is not on any meds for anxiety/depression. HPI Comments History of Present Illness Details Documentation assistance for Miguel Rebolledo MD, was provided by Spike Lizarraga,? [employer] Be[employer]er on 07/17/2024 at 12:00 PM EST. I, Dr. Rebolledo, have read, observed, and verified documentation. [facility] Medical History (Updated 07/17/24 @ 12:13 by Spike Lizarraga) Alcohol use disorder, severe, dependence Electrolyte imbalance Acidosis, lactic Weakness Acute hypokalemia Hypomagnesemia Alcohol abuse Obesity Hypocalcemia Anxiety ADHD Periodontitis Alcoholism Hernia Surgical History H/O gastric sleeve Social History Household Members: Family Housing: House Do you presently have visiting nurse or other home services: No Alcohol intake: current Alcohol type: hard liquor Comment: refusing fall risk intervention. Patient Tobacco Use Status: Never used Tobacco Substance Use Type: Marijuana service: No Questionnaire Thrive Questionnaire Date Thrive assessed: 06/02/24 Review of Systems Const Denies chills, Denies fatigue, Denies fever(s), Denies headache(s) and Denies weakness ENT Denies dizziness and Denies headache(s) Card Denies dyspnea Resp Denies cough, Denies dyspnea, Denies wheezing and Denies other (shortness of breath) Musc Denies numbness and Denies tingling Neuro Denies dizziness, Denies headache(s), Denies numbness, Denies tingling and Denies weakness Psych Reports anxiety and Reports depression Endo Denies fatigue Aller/Immun Denies wheezing Physical exam (Primary Care) Tobacco/Smoking Status: Tobacco use Status Patient Tobacco Use Status Never used Tobacco 07/17/24 11:10 Thrive Assessment: Date of Thrive Assessment Date Thrive assessed 06/02/24 07/17/24 11:10 Telehealth Telehealth Telehealth Platform: Telephone Location of provider rendering services: practice address Location of patient: address on file Patient Identification confirmed using: Name, : Yes Telehealth method: voice only Patient verbally consented to treatment: Yes Patient verbally consented to billing insurance company: Yes Patient informed of any privacy concerns related to visit: Yes Minutes spent on Phone/Video with Pt.: 13 Coding Level of Care Code Tele Est Pt Level 2 (32192) Diagnoses Anxiety F41.9 Alcohol abuse F10.10 Anemia D64.9 Elevated liver enzymes R74.8 Low vitamin D level R79.89 Assessment & Plan Assessment & Plan (1) Anxiety: Code(s): F41.9 - Anxiety disorder, unspecified Category: Medical Plan: Had?referred?patient?to?[facility]?outpatient?psychiatry?team?but?they?do?not?take?his? insurance I?have?asked?the?nurse?navigator?to?try?to?find?a?therapist?that? will?take?insurance. Sent?a?script?for?Celexa?and?patient?agrees?to?try?this He?has?a?diagnosis?of?ADHD?and?symptoms?from?this?may?also?be?aggravating?anxiet y?and?depression?but?I?advised?him?to?try?C elexa?1st?as?medications?such?as?Adderall?may?not?be?the?choice?for?him?at?this? particular?time. (2) Alcohol abuse: Code(s): F10.10 - Alcohol abuse, uncomplicated Category: Social Hx Plan: Patient?remains?abstinent?and?I?congratulated?him?on?this. ??Encouraged?him?to?continue?abstinence (3) Anemia: Code(s): D64.9 - Anemia, unspecified Category: Medical Plan: Likely?due?to?dry?suppression?from?alcohol.??Patient?has?remained?abstinent?and? his?blood?counts?are?improving?significantly. We?can?monitor (4) Elevated liver enzymes: Code(s): R74.8 - Abnormal levels of other serum enzymes Category: Medical Plan: Patient?remains?abstinent?and?liver?enzymes?are?much?improved Also?albumin?levels?are?increasing (5) Low vitamin D level: Code(s): R79.89 - Other specified abnormal findings of blood chemistry Category: Medical Plan: Improved. Gave?him?a?script?for?vitamin?D?that?can?take?daily?winter?months. Orders: Referrals Nurse Navigator Referral F41.9 - Anxiety disorder, unspecified, F10.10 - Alcohol abuse, uncomplicated Medications: New cholecalciferol (vitamin D3) 50 mcg PO DAILY 90 caps 2RF 90 days citalopram (Celexa) 10 mg PO DAILY 90 tabs 1RF 90 days Refilled thiamine mononitrate (vit B1) 100 mg PO DAILY 30 tabs 0RF magnesium oxide 400 mg PO DAILY 30 tabs 0RF multivitamin (Daily-Preeti tablet) 1 tab PO DAILY 30 tabs 0RF folic acid 1 mg PO DAILY 30 tabs 0RF Discontinued ergocalciferol (vitamin D2) Discontinued Reason: Doctor's Order 1,250 mcg PO Mo@0900 6 caps 0RF gabapentin Discontinued Reason: Doctor's Order 300 mg PO BID 30 caps 0RF
== END ==
LOC: HO.HMCFM 11:09
PROVIDERS: Visit Provider Family Medicine
DX: F41.9 Anxiety disorder, unspecified (principal); F10.10 Alcohol abuse, uncomplicated; D64.9 Anemia, unspecified; R74.8 Abnormal levels of other serum enzymes; R79.89 Other specified abnormal findings of blood chemistry

== ENCOUNTER → 2024-08-04 05:29 | Outpatient (BNV) | payer OTHER, SELFPAY | PROVIDERS: Admitting Provider Physician Assistant; Emergency Provider Emergency Medicine; Visit Provider Internal Medicine Cardiovascular Disease | DX: R94.31 Abnormal electrocardiogram [ECG] [EKG] (principal) | CPT/HCPCS: 93010 ==

== ENCOUNTER 2024-08-04 17:41 | Inpatient (IN) | payer OTHER, SELFPAY ==
--- NOTE | ~2024-08-04 | CT_ITS ---
EXAMINATION: CT HEAD WITHOUT CONTRAST CLINICAL INFORMATION: Headache. Nausea and vomiting. EtOH. COMPARISON: None available. TECHNIQUE: Contiguous axial imaging was performed from the skull base to vertex without intravenous administration of contrast. This CT examination was performed using dose optimization techniques as appropriate, variously including the following: *Automated exposure control *Adjustment of mA and/or kV according to patient size (this includes techniques or standardized protocols for targeted exams where dose is matched to indication/reason for exam; i.e. extremities or head) *Use of iterative reconstruction technique DLP: 1706 mGy-cm FINDINGS: No acute intracranial hemorrhage. No mass effect or midline shift. No parenchymal lesion. The burgos-white differentiation is maintained. No extra-axial fluid collection. The ventricles and sulci are unremarkable. The basal cisterns are patent. The calvarium is intact. The visualized paranasal sinuses and mastoid air cells are clear. CT/CT head/brain wo IV con IMPRESSION: No acute intracranial hemorrhage or mass effect. Electronically signed by: Mike Arreola MD 08/04/2024 09:22 PM [facility] [place]
--- NOTE | ~2024-08-04 | CT_ITS ---
EXAMINATION: CT ABDOMEN AND PELVIS WITH CONTRAST CLINICAL INFORMATION: Nausea and vomiting. Epigastric/left upper quadrant pain. EtOH. COMPARISON: CT abdomen/pelvis dated 04/24/2021. TECHNIQUE: Multidetector volumetric images were obtained from the superior aspect of the liver through the pubic symphysis following administration 85 mL of Omnipaque 350 intravenous contrast. Sagittal and coronal reformatted images were obtained on the technologist's workstation. Oral Contrast: No. This CT examination was performed using dose optimization techniques as appropriate, variously including the following: *Automated exposure control. *Adjustment of mA and/or kV according to patient size (this includes techniques or standardized protocols for targeted exams where dose is matched to indication/reason for exam; i.e. extremities or head). *Use of iterative reconstruction technique. DLP: 1706 mGy-cm FINDINGS: LUNG BASES: The visualized lung bases are unremarkable. LIVER, GALLBLADDER, AND BILIARY TREE: The liver is normal in size and shape. Diffuse parenchymal hypoattenuation, consistent with steatosis. No focal hepatic lesion or biliary ductal dilatation is present. The gallbladder is unremarkable with no evidence of radiopaque gallstones, gallbladder wall thickening, or obvious pericholecystic inflammatory changes. PANCREAS: Unremarkable. SPLEEN: Unremarkable. Redemonstration of a splenule. ADRENAL GLANDS: Unremarkable. KIDNEYS AND URETERS: The kidneys are normal in size, shape, and attenuation. No hydronephrosis, hydroureter, or calculi seen. No perinephric stranding. BLADDER: Unremarkable. GASTROINTESTINAL TRACT: Status post sleeve gastrectomy. Small, sliding hiatal hernia. No small or large bowel obstruction. No bowel wall thickening or inflammatory change. Unremarkable appendix. PERITONEAL CAVITY: No intra-abdominal free air or free fluid. No intra-abdominal mass or organized fluid collection/abscess formation. ABDOMINAL WALL: No significant hernia is appreciated. LYMPH NODES: Redemonstration of small retroperitoneal and periportal lymph nodes, not significantly changed. VASCULAR: Unremarkable. PELVIC VISCERA: The prostate and seminal vesicles are unremarkable. OSSEOUS STRUCTURES: Healed left-sided rib fractures. No acute osseous abnormality. CT/CT abdomen pelvis w IV con IMPRESSION: 1. Status post sleeve gastrectomy. Small, sliding hiatal hernia. No small or large bowel obstruction. No bowel wall thickening or inflammatory change. Unremarkable appendix. 2. Hepatic steatosis. No hepatic parenchymal lesion or biliary ductal dilatation. 3. No new intra-abdominal mass, lymphadenopathy, or ascites. Fleischner guidelines were followed. Electronically signed by: Mike Arreola MD 08/04/2024 09:30 PM [facility]
--- NOTE | 2024-08-04 05:29 | ECG_ITS ---
Test Reason : ETOH WITHDRAWL Blood Pressure : / mmHG Vent. Rate : 095 BPM Atrial Rate : 095 BPM P-R Int : 136 ms QRS Dur : 084 ms QT Int : 362 ms P-R-T Axes : 021 008 -02 degrees QTc Int : 454 ms Normal sinus rhythm Cannot rule out Anterior infarct , age undetermined Abnormal ECG No previous ECGs available Referred By: Brooke Thurman Electronically Signed By:BON KELLY MD
--- NOTE | 2024-08-04 17:44 | ED_ITS ---
HPI - Psych General Chief Complaint: Psychiatric Symptoms Stated Complaint: having suicidal dreams Time Seen by Provider: 08/04/24 18:40 Source: patient Limitations: no limitations History of Present Illness ED Provider: Brooke Thurman NP HPI Narrative: Patient is a 28-year-old male who presents emergency department for evaluation, father is at bedside. He reports to the ED with initial complaint of suicidal ideations with a plan to swallow razor blades, has not acted on this. He states that he was recently sober from alcohol since 12/29/2023, with a recent relapse a few days ago. Reports his last drink was 2 days ago ?a handle of vodka?. Father at bedside reports that he has a history of alcohol withdrawal including alcohol withdrawal seizures. He states that he has been having constant nausea and vomiting, inability to tolerate any oral intake. Has diffuse upper abdominal pain and cramping to the lower abdomen. Denies hematemesis, hematochezia, melena. He also reports that he had a fall 2 days ago while intoxicated. He is unable to tell me the exact circumstances around this. He is endorsing a bilateral headache localized to the temporal region. Denies use of anticoagulants or known coagulation disorders. Denies associated dizziness lightheadedness or vision changes. No neck pain. No chest pain or shortness breath. Denies genitourinary symptoms. Related Data Allergies Allergy/AdvReac Type Severity Reaction Status Date / Time amoxicillin Allergy Unknown Verified 08/04/24 17:54 Penicillins Allergy Unknown Verified 08/04/24 17:54 sulfamethoxazole Allergy Unknown Verified 08/04/24 17:54 [From Bactrim] trimethoprim [From Bactrim] Allergy Unknown Verified 08/04/24 17:54 Review of Systems 2 Review of Systems: Yes all other systems are reviewed and are negative PMFSH Past Medical History Attestation statement: The following information was validated with the patient. Source: old records reviewed Medical History (Updated 08/05/24 @ 02:42 by Brooke Thurman CNP) Hyperparathyroidism Vitamin D deficiency Alcohol use disorder Social History Social History Advance Directives: No Advance Directives Information Provided: No Physical Exam 2 Vital Signs: Vital Signs: Last Vital Signs Temp 98.4 F 08/05/24 00:00 Pulse 91 08/05/24 00:00 Resp 17 08/05/24 00:00 BP 126/74 08/05/24 00:00 Pulse Ox 93 08/05/24 00:00 O2 Del Method Room Air 08/05/24 00:00 BMI result Body Mass Index 41.6 Appearance: Alert.?Oriented to person, place and time. No acute distress.?Normal affect.?? Neck: Normal inspection.? Neck supple.?? CVS: Heart sounds normal. Normal heart rate and rhythm.? Pulses normal.?? Respiratory: No respiratory distress.? Lung sounds clear to auscultation bilaterally?? Abdomen: Soft and non-tender. No rebound tenderness at McBurney's point. Negative psoas sign. Negative Rovsing sign. Negative Gold sign. No CVAT. Normoactive bowel sounds. No pulsatile mass.?? Skin: Skin warm and dry.? Normal skin color.? Extremities: No lower extremity edema.? Neuro: Moves all extremities spontaneously. Sensation intact bilaterally. Ambulates with normal steady gait. Course Course Course Narrative: This is an RME: Additional HPI, ROS, PE not included below will be deferred to primary provider. RME assessment and note performed by: Radha Matamoros PA-C This is a [id number]-male who presents to the ER with complaints of worsening suicidal ideations. Pt also endorsing nausea and is actively vomiting. Reports SI plan to swallow razors, has not acted on this. Reporting last drink was on saturday. no hx of etoh withdrawal seizures. Plan: Labs, UA, zofran 4mg ODT Reevaluation(s) Reevaluation #1: Critical lactic acidosis of 4.9, suspect this may be in part due to combination starvation and alcoholic ketoacidosis as he has not had anything to eat over the past few days due to excessive nausea and vomiting. He has already received 1 L normal saline IV fluid; sepsis fluid bolus would call for a total of 3946 mL, I calculated this based on ideal body weight given his past medical history of obesity which prompts for an additional 2190 mL (with a total once completed of 3,190 mL). Also hypokalemic 2.7 will replete with 40 mEq IV in 10 mEq dosages as well as 40 mEq p.o., magnesium 1.3 will replace with 2 g IV. Will obtain EKG to check QTC. At this time no clear source of infection, possibly cholecystitis in the setting of his history presenting symptoms, will obtain blood cultures and plan for coverage with cefazolin, allergy to amoxicillin/penicillin with unknown reaction Elevated LFTs with AST 475, ALT 166, alk-phos 219, normal lipase. On review of his additional medical record notably higher on date of previous admission AST 192, ALT 92, alk-phos 361. Although patient denies any alcohol consumption over the past 2 days, ethyl alcohol level resulted at 116. I suspect patient is a likely alcoholic hepatitis Time: 20:16 Reevaluation #2: Head CT is without acute intracranial pathology, no evidence of ICH as etiology for nausea and vomiting in the setting of recent injury, no skull fracture. CT of the abdomen and pelvis revealing a small sliding hiatal hernia, no acute intra-abdominal pathology, hepatic steatosis no biliary ductal dilation. Lactic acid down trending at 3.1, potassium is only increased to 2.8 after receiving 30 mEq IV 40 mEq p.o. patient received calcium gluconate 2 g. Downtrending LFTs. Admitting to medicine service for electrolyte derangement, alcoholic hepatitis, alcohol withdrawal and suicidal ideations Medications Administered Generic Name Dose Route Start Last Admin Trade Name Freq PRN Reason Stop Dose Admin Calcium Gluconate 2 gm in 100 mls @ 50 mls/hr 08/05/24 01:15 08/05/24 02:35 Calcium Gluconate IV 08/05/24 03:14 50 mls/hr ONCE ONE Administration Discontinued Medications Generic Name Dose Route Start Last Admin Trade Name Freq PRN Reason Stop Dose Admin Sodium Chloride 1,000 mls @ 999 mls/hr 08/04/24 19:45 08/04/24 21:09 Ns IV 08/04/24 20:45 Infused .Q1H1M MICHAEL Infusion Sodium Chloride 2,190 mls @ 2,190 mls/hr 08/04/24 20:13 08/04/24 21:50 Ns IV 08/04/24 21:12 Infused .Q1H STA Infusion Potassium Chloride 10 meq in 100 mls @ 100 mls/hr 08/04/24 21:00 08/05/24 00:49 Potassium Chloride/H20 IV 08/05/24 00:59 100 mls/hr Q1H MICHAEL Administration Magnesium Sulfate 2 gm in 50 mls @ 25 mls/hr 08/04/24 20:18 08/04/24 22:42 Magnesium Sulfate/H2o IV 08/04/24 22:17 Infused ONCE ONE Infusion Cefazolin Sodium/Dextrose 2 gm in 50 mls @ 100 mls/hr 08/04/24 20:27 08/04/24 21:30 Ancef IV 08/04/24 20:56 Infused ONCE ONE Infusion Sodium Chloride 1,000 mls @ 999 mls/hr 08/04/24 22:30 08/05/24 00:49 Ns IV 08/04/24 23:30 Infused .Q1H1M MICHAEL Infusion Ibuprofen 400 mg 08/05/24 00:55 08/05/24 02:35 Ibuprofen 400 Mg Tablet PO 08/05/24 00:56 400 mg ONCE ONE Administration Iohexol 85 ml 08/04/24 20:30 08/04/24 20:30 Iohexol 350 Mg/Ml 100 Ml Infus..Btl IV 08/04/24 20:31 85 ml ONCE ONE Administration Ondansetron HCl 4 mg 08/04/24 17:52 08/04/24 18:28 Ondansetron Odt 4 Mg Tab.Rapdis TRANSLINGU 08/04/24 17:53 4 mg ONCE ONE Administration Ondansetron HCl 4 mg 08/04/24 19:34 08/04/24 20:08 Ondansetron Hcl 4 Mg/2 Ml Vial IVPUSH 08/04/24 19:35 4 mg ONCE ONE Administration Phenobarbital Sodium 351 mg 08/05/24 00:00 08/05/24 00:09 Phenobarbital Sodium 130 Mg/Ml Im Once IM 08/05/24 00:01 351 mg ONCE ONE Administration Protocol Potassium Chloride 40 meq 08/04/24 20:18 08/04/24 20:38 Potassium Chloride Er 20 Meq Tab.Er.Prt PO 08/04/24 20:19 40 meq ONCE ONE Administration Medical Decision Making Medical Decision Making MDM Narrative: Patient is a 28-year-old male with past medical History of alcohol use disorder, alcohol withdrawal, anxiety/depression, electrolyte derangements, gastric sleeve in 2015 through [facility] presenting for evaluation of suicidal ideations with a plan as per HPI in addition to abdominal pain with nausea and vomiting in the setting of recent reported relapse of alcohol use as per HPI. He appears fatigued, anxious, arrived tachycardic though this may be due to volume depletion/anxiety versus potentially alcohol withdrawal. On examination his tenderness upon palpation over the epigastrium as well as the left upper quadrant, possibly acute pancreatitis. Can not completely exclude possibility for acute cholecystitis, choledocholithiasis given presenting symptoms. Will obtain CBC to evaluate for leukocytosis/ anemia, CMP and lipase to evaluate for abnormal electrolytes /abnormal renal function/ abnormal hepatic/biliary function, and Urinalysis as well as toxicology testing. Patient will receive 1 L normal saline IV fluid, Zofran 4 mg IV. Plan to monitor CIWA for alcohol withdrawal. No associated chest pain shortness of breath or URI symptoms to suggest pneumonia, no clinical evidence of DVT or personal history of VTE/malignancy to suggest pulmonary embolism. No high-risk past medical history to suggest myocardial infarction and is without chest pain, less likely AAA, aortic dissection. No rebound tenderness at McBurney's point, rigidity, guarding to suggest acute appendicitis. No tenderness of the left lower quadrant nor associated nausea, vomiting, diarrhea, constipation, hematochezia or melena to suggest diverticulitis or GI bleed. No appreciable hernia to suggest strangulation/incarceration. Lower suspicion for bowel obstruction. No distention or rigidity to suggest GI perforation. No associated genitourinary symptoms to suggest UTI/pyelonephritis, renal colic, hydronephrosis. Differential Diagnosis Differential Diagnoses: The differential diagnosis associated with the presentation includes (See narrative above) Admission/Observation Consideration of admission/observation: Escalation of care including admission/observation considered (See narrative above ) Lab Data MDM Lab Attestation statement: I reviewed the patient's lab results. 08/04/24 19:47 08/05/24 00:24 Labs: Lab Results 08/04/24 08/04/24 08/04/24 Range/Units 18:35 19:47 22:00 WBC 7.5 (4.8-10.8) X10*3/uL RBC 5.01 (4.60-5.80) X10*6/uL Hgb 14.2 (14.0-18.0) g/dl Hct 41.8 L (42.0-52.0) % MCV 83.4 (80.0-98.0) fL MCH 28.3 (27.0-33.0) pg MCHC 34.0 (31.0-36.0) g/dl RDW 15.9 (11.0-16.0) % Plt Count 268 (160-400) X10*3/uL MPV 9.3 L (9.4-12.4) fL Immature Gran % (Auto) 0.3 (0.0-0.4) % Neut % (Auto) 79.9 H (45-73) % Lymph % (Auto) 13.4 L (20-40) % Sunflower % (Auto) 5.7 (2-11) % Eos % (Auto) 0.3 (0-4) % Baso % (Auto) 0.4 (0-2) % Lymph # (Auto) 1.0 L (1.2-4.9) X10*3/uL Sunflower # (Auto) 0.4 (0.1-1.2) X10*3/uL Eos # (Auto) 0.0 (0.0-0.4) X10*3/uL Baso # (Auto) 0.0 (0.0-0.2) X10*3/uL Abs Immat Gran (auto) 0.02 (0.00-0.03) X10*3/uL Absolute Neuts (auto) 6.0 (2.0-8.3) x10*3/uL Absolute Nucleated RBC 0.000 (0.0-0.012) X10*3/uL Nucleated RBC % (auto) 0.0 (0.0-0.2) /100WBC Sodium 142 (135-145) mmol/L Potassium 2.7 L* (3.3-5.1) mmol/L Chloride 96 (96-108) mmol/L Carbon Dioxide 26 (22-29) mmol/L Anion Gap 23 H (12-20) BUN < 3 L (9-16) mg/dL Creatinine 0.66 (0.5-1.4) mg/dL Estim Creat Clear Calc 225.2 Estimated GFR > 60 Random Glucose 110 (60-115) mg/dL Lactic Acid 4.9 H* (0.5-2.0) mmol/L Lactic Acid F/U @ 2Hr 4.7 H* (0.5-2.0) mmol/L Lactic Acid F/U @ 4Hr (0.5-2.0) mmol/L Calcium 7.8 L (8.4-10.2) mg/dL Magnesium 1.3 L* (1.6-2.6) mg/dL Total Bilirubin 0.7 (0.0-1.0) mg/dL Direct Bilirubin 0.4 (0.0-0.5) mg/dL AST 475 H (5-37) U/L ALT 166 H (0-40) U/L Alkaline Phosphatase 219 H (39-117) U/L Total Protein 7.0 (6.5-8.0) g/dL Albumin 3.4 L (3.5-5.0) g/dL Lipase 13 (8-78) U/L Ethyl Alcohol 116 mg/dL Influenza Type A (PCR) NEGATIVE (Negative) Influenza Type B (PCR) NEGATIVE (Negative) RSV RNA Qual (PCR) NEGATIVE (Negative) SARS-CoV-2 RNA (RT-PCR) NEGATIVE (Negative) 08/05/24 Range/Units 00:24 WBC (4.8-10.8) X10*3/uL RBC (4.60-5.80) X10*6/uL Hgb (14.0-18.0) g/dl Hct (42.0-52.0) % MCV (80.0-98.0) fL MCH (27.0-33.0) pg MCHC (31.0-36.0) g/dl RDW (11.0-16.0) % Plt Count (160-400) X10*3/uL MPV (9.4-12.4) fL Immature Gran % (Auto) (0.0-0.4) % Neut % (Auto) (45-73) % Lymph % (Auto) (20-40) % Sunflower % (Auto) (2-11) % Eos % (Auto) (0-4) % Baso % (Auto) (0-2) % Lymph # (Auto) (1.2-4.9) X10*3/uL Sunflower # (Auto) (0.1-1.2) X10*3/uL Eos # (Auto) (0.0-0.4) X10*3/uL Baso # (Auto) (0.0-0.2) X10*3/uL Abs Immat Gran (auto) (0.00-0.03) X10*3/uL Absolute Neuts (auto) (2.0-8.3) x10*3/uL Absolute Nucleated RBC (0.0-0.012) X10*3/uL Nucleated RBC % (auto) (0.0-0.2) /100WBC Sodium 139 (135-145) mmol/L Potassium 2.8 L* (3.3-5.1) mmol/L Chloride 100 (96-108) mmol/L Carbon Dioxide 23 (22-29) mmol/L Anion Gap 19 (12-20) BUN < 3 L (9-16) mg/dL Creatinine 0.58 (0.5-1.4) mg/dL Estim Creat Clear Calc 256.2 Estimated GFR > 60 Random Glucose 95 (60-115) mg/dL Lactic Acid (0.5-2.0) mmol/L Lactic Acid F/U @ 2Hr (0.5-2.0) mmol/L Lactic Acid F/U @ 4Hr 3.1 H* (0.5-2.0) mmol/L Calcium 6.6 L D (8.4-10.2) mg/dL Magnesium 1.5 L (1.6-2.6) mg/dL Total Bilirubin 0.7 (0.0-1.0) mg/dL Direct Bilirubin 0.4 (0.0-0.5) mg/dL AST 374 H (5-37) U/L ALT 138 H (0-40) U/L Alkaline Phosphatase 191 H (39-117) U/L Total Protein 6.0 L (6.5-8.0) g/dL Albumin 2.9 L (3.5-5.0) g/dL Lipase (8-78) U/L Ethyl Alcohol mg/dL Influenza Type A (PCR) (Negative) Influenza Type B (PCR) (Negative) RSV RNA Qual (PCR) (Negative) SARS-CoV-2 RNA (RT-PCR) (Negative) Independent Interpretation I performed an independent interpretation of an: EKG Interpretation: EKG revealing normal sinus rhythm, normal JANIE, no ST depression, no ST depression, no peaked T-waves, QTC 454 Radiology Impression Discussion of test interpretation with radiology: I have reviewed the radiologist's reading. Radiologist Impression: CT/CT head/brain wo IV con IMPRESSION: No acute intracranial hemorrhage or mass effect. CT/CT abdomen pelvis w IV con IMPRESSION: 1. Status post sleeve gastrectomy. Small, sliding hiatal hernia. No small or large bowel obstruction. No bowel wall thickening or inflammatory change. Unremarkable appendix. 2. Hepatic steatosis. No hepatic parenchymal lesion or biliary ductal dilatation. 3. No new intra-abdominal mass, lymphadenopathy, or ascites. Independent Historian Clinical information obtained from an independent historian. History obtained from or confirmed by: Parent External Record Review External record reviewed: Inpatient record (Patient with 2 medical records, MRN number [id number]) Admission to [facility] [place] 06/01/2024-06/10/2024 with multiple electrolyte derangements; hypokalemia, hypocalcemia, hypomagnesemia, vitamin-D deficiency with secondary hyper PTH, odontogenic infection discharged home with Ceftin and Flagyl advised to follow-up outpatient with dental provider, alcohol withdrawal treated with phenobarbital protocol initially had hallucinations that resolved, 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
[2024-08-04 17:49] VITALS: BP 154/99; PULSE 129; RESP 20; TEMP 36.8; O2SAT 100; BMI 41.6
[2024-08-04] MEDS: Ondansetron ODT 4 MG TAB.RAPDIS TRANSLINGU (18:28)
[2024-08-04 19:21] LABS: Influenza A PCR NEGATIVE (Negative); Influenza B PCR NEGATIVE (Negative); Resp Syncy Virus RNA Qual PCR NEGATIVE (Negative); SARS COV2 PCR INHOUSE NEGATIVE (Negative)
[2024-08-04 19:54] LABS: Basophils Percent Auto 0.4 % (0-2); Eosinophils Percent Auto 0.3 % (0-4); Hematocrit 41.8 % (42.0-52.0); Hemoglobin 14.2 g/dl (14.0-18.0); Imm Gran Abs Auto 0.02 X10*3/uL (0.00-0.03); Imm Gran Pct Auto 0.3 % (0.0-0.4); Lymphocytes Percent Auto 13.4 % (20-40); Mean Corpuscular Hemoglobin 28.3 pg (27.0-33.0); Mean Corpuscular Volume 83.4 fL (80.0-98.0); Mean Platelet Volume 9.3 fL (9.4-12.4); Monocytes Absolute Auto 0.4 X10*3/uL (0.1-1.2); Monocytes Percent Auto 5.7 % (2-11); Neutrophils Percent Auto 79.9 % (45-73); Platelet Count 268 X10*3/uL (160-400); Red Blood Count 5.01 X10*6/uL (4.60-5.80); Red Cell Distribution Width 15.9 % (11.0-16.0); White Blood Count 7.5 X10*3/uL (4.8-10.8)
[2024-08-04] MEDS: 0.9 % Sodium Chloride 1,000 ML 999 ML IV ×2 (20:05→22:50)
[2024-08-04] MEDS: ondansetron HCL 4 MG/2 ML VIAL IVPUSH (20:08)
[2024-08-04 20:14] LABS: Alanine Aminotransferase 166 U/L (0-40); Albumin Level 3.4 g/dL (3.5-5.0); Alkaline Phosphatase 219 U/L (39-117); Anion Gap 23 (12-20); Aspartate Amino Transferase 475 U/L (5-37); Bilirubin Direct 0.4 mg/dL (0.0-0.5); Bilirubin Total 0.7 mg/dL (0.0-1.0); Blood Urea Nitrogen < 3 mg/dL (9-16); Calcium 7.8 mg/dL (8.4-10.2); Carbon Dioxide 26 mmol/L (22-29); Chloride 96 mmol/L (96-108); Creatinine Clr Calc Pharmacy 225.2; Estimated Glomerular Filt Rate > 60; Ethanol 116 mg/dL; Glucose Random 110 mg/dL (60-115); Lactic Acid 4.9 mmol/L (0.5-2.0); Lipase 13 U/L (8-78); Magnesium 1.3 mg/dL (1.6-2.6); Potassium 2.7 mmol/L (3.3-5.1); Sodium 142 mmol/L (135-145)
[2024-08-04] MEDS: iohexoL 350 MG/ML 100 ML INFUS..BTL 85 ML IV (20:30)
[2024-08-04] MEDS: Potassium Chloride ER 20 MEQ TAB.ER.PRT 40 MEQ PO (20:38)
[2024-08-04] MEDS: Magnesium Sulfate/H2O 2 GM/50 ML PIGGYBACK IV (20:42)
[2024-08-04] MEDS: 0.9 % Sodium Chloride 2,190 ML 2190 ML IV (20:50)
[2024-08-04] MEDS: Potassium Chloride/H20 10 MEQ/100 ML PIGGYBACK 100 MEQ IV ×3 (20:51→23:32)
--- NOTE | 2024-08-04 20:51 | PC.NURSE ---
re:delay in abx admin-pt is difficult stick rthis nurse and 2 technicians have attempte labs x2
--- NOTE | 2024-08-04 21:02 | MHC.EDTECH ---
This tech assisted with drawing blood cultures,sent to lab
[2024-08-04] MEDS: ceFAZolin Sodium/Dextrose,Iso 2 GM/50 ML PIGGYBACK IV (21:04)
[2024-08-04 21:08] VITALS: BP 135/93; PULSE 100; RESP 17; TEMP 36.6; O2SAT 99
[2024-08-04 21:09] VITALS: BP 135/93
[2024-08-04 21:22] VITALS: BP 141/88
[2024-08-04 21:49] VITALS: BP 143/84; PULSE 87; RESP 20; O2SAT 98
[2024-08-04 21:52] LABS: Reflex Lactate? Lactic Acid Added
--- NOTE | 2024-08-04 22:04 | MHC.EDTECH ---
This tech assisted with drawing a repeat lactic
[2024-08-04 22:11] LABS: MANUAL DIFF FLAG NO
[2024-08-04 22:24] LABS: ~Lactic Acid-LAB USE ONLY 4.7 mmol/L (0.5-2.0)
--- NOTE | 2024-08-04 22:45 | PC.NURSE ---
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
[2024-08-05] VITALS (9 sets, daily range): BP systolic 126–153; BP diastolic 74–96; PULSE 56–91; RESP 16–22; TEMP 36.6–37.6; O2SAT 93–99; BMI 41.6; BMI 39.5
[2024-08-05 00:04] LABS: Reflex Lactate? 2 Y
[2024-08-05] MEDS: PHENobarbitaL sodium 130 MG/ML IM ONCE 351 MG IM (00:09)
[2024-08-05] MEDS: Potassium Chloride/H20 10 MEQ/100 ML PIGGYBACK 100 MEQ IV ×5 (00:49→11:13)
[2024-08-05 00:57] LABS: Anion Gap 19 (12-20); Blood Urea Nitrogen < 3 mg/dL (9-16); Calcium 6.6 mg/dL (8.4-10.2); Carbon Dioxide 23 mmol/L (22-29); Chloride 100 mmol/L (96-108); Creatinine Clr Calc Pharmacy 256.2; Estimated Glomerular Filt Rate > 60; Glucose Random 95 mg/dL (60-115); Magnesium 1.5 mg/dL (1.6-2.6); Potassium 2.8 mmol/L (3.3-5.1); Sodium 139 mmol/L (135-145)
[2024-08-05 00:58] LABS: ~Lactic Acid-LAB USE ONLY 3.1 mmol/L (0.5-2.0)
[2024-08-05 01:11] LABS: Alanine Aminotransferase 138 U/L (0-40); Albumin Level 2.9 g/dL (3.5-5.0); Alkaline Phosphatase 191 U/L (39-117); Aspartate Amino Transferase 374 U/L (5-37); Bilirubin Direct 0.4 mg/dL (0.0-0.5); Bilirubin Total 0.7 mg/dL (0.0-1.0)
--- NOTE | 2024-08-05 01:19 | MHC.EDTECH ---
belongings in shelf 3, pod do port closet
--- NOTE | 2024-08-05 02:19 | P.HPHOSP_ITS ---
History of Present Illness Date of Service: 08/05/24 Attending physician on admission: Hernandez Yang Chief Complaint: SI, nausea, vomiting Patient is a 28-year-old male with a past medical history significant for alcohol use disorder, vitamin-D deficiency, hyperparathyroidism, and history of alcohol withdrawal seizure, who presented to the ED yesterday with nausea, vomiting, upper abdominal pain and SI. He reported a plan to swallow razors. He has a history of heavy alcohol use reports he has been sober up until recently a few days ago when he started drinking 1 handle of vodka daily. He denies any smoking history or drug use aside from occasional marijuana. He reports a recent fall while intoxicated with an unsteady gait and states he fell on to his back. 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 He also reported a history of withdrawal hallucinations and possible seizure. He has a bilateral headache since his fall recently. He describes sharp right upper quadrant pain rating it a 3/10 now but previously was much more severe. He was also nauseous and vomiting frequently which has now subsided. He denies any hematemesis or issues with his bowels including melena or hematochezia. He also denies any fever, chills, chest pain, shortness of breath or URI symptoms. Review of Systems 2 Constitutional: Constitutional: Denies body ache(s), Denies chills, Denies fatigue, Denies fever(s) and Reports headache(s) Eyes: Eyes: Denies change in vision ENT: Reports headache(s), Denies nasal congestion, Denies nasal discharge and Denies sore throat Cardiovascular: Cardiovascular: Denies chest pain, Denies rapid heart rate, Denies leg edema and Denies dyspnea Respiratory: Respiratory: Denies chest congestion, Denies cough, Denies dyspnea and Denies wheezing Gastrointestinal: Gastrointestinal: Denies coffee ground emesis, Denies constipation, Denies diarrhea, Reports nausea, Reports vomiting and Denies hematemesis Genitourinary: Genitourinary: Denies dysuria and Denies urinary urgency Musculoskeletal: Musculoskeletal: Reports back pain Integumentary/Breasts: Skin/Breast: Denies rash Neurologic: Reports headache(s), Denies Other visual disturbances and Denies seizure-like activity Psychiatric: Psychiatric: Denies visual hallucinations, Denies hallucinations and Denies tactile hallucinations Endocrine: Endocrine: Denies fatigue Hematologic/Lymphatic: Hematologic/Lymphatic: Denies easy bleeding Allergic/Immunologic: Allergic/Immunologic: Denies wheezing [facility] Medical History (Updated 08/05/24 @ 02:42 by Brooke Thurman CNP) Hyperparathyroidism Vitamin D deficiency Alcohol use disorder Functional capacity: uses cane/walker Social History Advance Directives: No Advance Directives Information Provided: No Narrative: Currently drinking 1 handle of vodka per day, smokes occasional marijuana, no cigarettes Meds Allergies Allergy/AdvReac Type Severity Reaction Status Date / Time amoxicillin Allergy Unknown Verified 08/04/24 17:54 Penicillins Allergy Unknown Verified 08/04/24 17:54 sulfamethoxazole Allergy Unknown Verified 08/04/24 17:54 [From Bactrim] trimethoprim [From Bactrim] Allergy Unknown Verified 08/04/24 17:54 Active Medications: Current Medications Calcium Gluconate (Calcium Gluconate) 2 gm in 100 mls @ 50 mls/hr IV ONCE ONE Stop: 08/05/24 03:14 Pharmacy Consult (Consult Rx Etoh Phenob Im/Po) 1 each MISCELLANE ONCE PRN; Protocol PRN Reason: Consult order Phenobarbital (Phenobarbital 15 Mg Tablet) 45 mg PO BID MICHAEL; Protocol Stop: 08/06/24 21:01 Phenobarbital (Phenobarbital 15 Mg Tablet) 15 mg PO BID MICHAEL; Protocol Stop: 08/08/24 21:01 Phenobarbital (Phenobarbital 15 Mg Tablet) 15 mg PO DAILY MICHAEL; Protocol Stop: 08/10/24 09:01 Phenobarbital Sodium (Phenobarbital Sodium 130 Mg/Ml Vial Im Q3hx2) 263 mg IM Q3H MICHAEL; Protocol Stop: 08/05/24 06:01 Physical Exam 2 Vital Signs and Narrative: Vital Signs: Last Vital Signs Temp 98.4 F 08/05/24 00:00 Pulse 91 08/05/24 00:00 Resp 17 08/05/24 00:00 BP 126/74 08/05/24 00:00 Pulse Ox 93 08/05/24 00:00 O2 Del Method Room Air 08/05/24 00:00 BMI result Body Mass Index 41.6 General: AOx3, no acute distress Resp: CTA bilaterally CVS: S1, S2, RRR GI: +BS, NT, no distention Skin: Warm, dry, no bruising on the back Neuro: Cranial nerves II-XII grossly intact bilaterally. Motor grossly intact bilaterally MSK: No LE edema, pain with palpation of lower spine, no bruising, no obvious deformity Psych: Appropriate affect Results Labs 08/04/24 19:47 08/05/24 00:24 Labs: Laboratory Results - last 24 hr 08/04/24 08/04/24 08/04/24 18:35 19:47 22:00 MCV 83.4 MCH 28.3 MCHC 34.0 RDW 15.9 Plt Count 268 MPV 9.3 L Immature Gran % (Auto) 0.3 Neut % (Auto) 79.9 H Lymph % (Auto) 13.4 L Piatt % (Auto) 5.7 Eos % (Auto) 0.3 Baso % (Auto) 0.4 Lymph # (Auto) 1.0 L Piatt # (Auto) 0.4 Eos # (Auto) 0.0 Baso # (Auto) 0.0 Abs Immat Gran (auto) 0.02 Absolute Neuts (auto) 6.0 Absolute Nucleated RBC 0.000 Nucleated RBC % (auto) 0.0 Anion Gap 23 H Estim Creat Clear Calc 225.2 Estimated GFR > 60 Random Glucose 110 Lactic Acid 4.9 H* Lactic Acid F/U @ 2Hr 4.7 H* Lactic Acid F/U @ 4Hr Calcium 7.8 L Magnesium 1.3 L* Total Bilirubin 0.7 Direct Bilirubin 0.4 AST 475 H ALT 166 H Alkaline Phosphatase 219 H Total Protein 7.0 Albumin 3.4 L Lipase 13 Ethyl Alcohol 116 Influenza Type A (PCR) NEGATIVE Influenza Type B (PCR) NEGATIVE RSV RNA Qual (PCR) NEGATIVE SARS-CoV-2 RNA (RT-PCR) NEGATIVE 08/05/24 00:24 MCV MCH MCHC RDW Plt Count MPV Immature Gran % (Auto) Neut % (Auto) Lymph % (Auto) Piatt % (Auto) Eos % (Auto) Baso % (Auto) Lymph # (Auto) Piatt # (Auto) Eos # (Auto) Baso # (Auto) Abs Immat Gran (auto) Absolute Neuts (auto) Absolute Nucleated RBC Nucleated RBC % (auto) Anion Gap 19 Estim Creat Clear Calc 256.2 Estimated GFR > 60 Random Glucose 95 Lactic Acid Lactic Acid F/U @ 2Hr Lactic Acid F/U @ 4Hr 3.1 H* Calcium 6.6 L D Magnesium 1.5 L Total Bilirubin 0.7 Direct Bilirubin 0.4 AST 374 H ALT 138 H Alkaline Phosphatase 191 H Total Protein 6.0 L Albumin 2.9 L Lipase Ethyl Alcohol Influenza Type A (PCR) Influenza Type B (PCR) RSV RNA Qual (PCR) SARS-CoV-2 RNA (RT-PCR) Imaging Radiologist's Impressions: Impressions Abdomen/Pelvis CT 08/04/24 20:38 IMPRESSION: 1. Status post sleeve gastrectomy. Small, sliding hiatal hernia. No small or large bowel obstruction. No bowel wall thickening or inflammatory change. Unremarkable appendix. 2. Hepatic steatosis. No hepatic parenchymal lesion or biliary ductal dilatation. 3. No new intra-abdominal mass, lymphadenopathy, or ascites. Fleischner guidelines were followed. Electronically signed by: Mike Arreola MD 08/04/2024 09:30 PM [employer] RP Workstation: [id number] Head CT 08/04/24 20:38 IMPRESSION: No acute intracranial hemorrhage or mass effect. Electronically signed by: Mike Arreola MD 08/04/2024 09:22 PM EST RP Workstation: [id number] Assessment and Plan (1) Alcoholic hepatitis: Status: Acute (2) Alcohol withdrawal: Status: Acute (3) Hypokalemia: Status: Acute (4) Hypomagnesemia: Status: Acute (5) Hypocalcemia: Status: Acute (6) Alcohol use disorder: Status: Acute (7) Morbid obesity with BMI of 40.0-44.9, adult: Status: Chronic Plan Patient is a 28-year-old male with a past medical history significant for alcohol use disorder, vitamin-D deficiency, hyperparathyroidism, and history of alcohol withdrawal seizure, who presented to the ED yesterday with nausea, vomiting, upper abdominal pain and SI. Given fluid bolus due to lactic acid of 4.9, no obvious source of infection, no fever, leukocytosis or tachycardia. Not sepsis, likely starvation/alcoholic ketosis. RUQ pain, likely acute alcoholic hepatitis - AST 374, ALT 138, alk-phos 191 - no leukocytosis or infectious symptoms - abdominopelvic CT without CBD obstruction, cholelithiasis or pancreatitis - given fluid bolus due to elevated lactic acid of 4.9, likely related to starvation/alcoholic ketosis - continue LR 100 mL/hr ,poor PO intake Severe electrolyte abnormalities - K 2.8, given 40 mEq IV and p.o. - magnesium 1.5, given 2 g - hypocalcemia likely secondary to vitamin-D deficiency - multivitamin daily - IV fluids as above - monitor BMP and magnesium - admit to med tele Alcohol withdrawal - phenobarb protocol - electrolytes as above - monitor CIWA scale - seizure precautions - addiction med consult - folic acid, thiamine and multivitamin daily - famotidine 20 mg b.i.d. for gastritis SI - care team consult Morbid obesity - BMI 41.6 - weight loss encouraged Full code VTE prophylaxis: Lovenox Patient with right upper quadrant pain and elevated LFTs likely secondary to acute alcoholic hepatitis complicated by severe electrolyte abnormalities and alcohol withdrawal as well as suicidal ideation, requiring admission for at least 2 midnight stay for monitoring and medication withdrawal. Quality Stroke Does the patient have a stroke diagnosis?: No VTE Prior VTE?: No VTE Risk Level:: Medical - moderate - high VTE Device Contraindication: Treatment Not Indicated VTE Drug Contraindication: N/A - Med Ordered
[2024-08-05] MEDS: Ibuprofen 400 MG TABLET PO (02:35)
[2024-08-05] MEDS: Calcium Gluconate/NaCl,Iso-Osm 2 GM/100 ML PLAST..BAG IV (02:35)
[2024-08-05] MEDS: PHENobarbitaL sodium 130 MG/ML VIAL IM Q3Hx2 263 MG IM ×2 (03:17→07:55)
[2024-08-05] MEDS: Lactated Ringers 1,000 ML 100 ML IVCONT ×2 (03:18→14:33)
[2024-08-05 04:59] LABS: Amphetamine Screen Urine Not Detected (Not Detect); Barbiturates, Urine POSITIVE (Not Detect); Benzodiazepines Screen Urine Not Detected (Not Detect); Buprenorphine Scr Not Detected (Not Detect); Cannabinoid Screen Urine POSITIVE (Not Detect); Cocaine Screen Urine POSITIVE (Not Detect); Fentanyl, urine Not Detected (Not Detect); Methadone Screen, Urine Not Detected (Not Detect); Opiate Screen Urine Not Detected (Not Detect); Oxycodone Screen Urine Not Detected (Not Detect); Phencyclidine Screen Urine Not Detected (Not Detect)
[2024-08-05 05:03] LABS: Appearance Urine Clear; Color Urine Dark Yellow; Glucose Urine UA Negative (Negative); Leukocyte Esterase Urine Negative (Negative); Nitrite Urine Negative (Negative); PH 6.5 (5.0-9.0); Specific Gravity - Urine >= 1.030 (1.005-1.025); Urine Blood Negative (Negative); Urine Ketones 15 mg/dL (Negative); Urine Protein Trace mg/dL (Neg-Trace)
[2024-08-05 05:08] LABS: Basophils Percent Auto 0.3 % (0-2); Eosinophils Percent Auto 0.1 % (0-4); Hematocrit 34.6 % (42.0-52.0); Hemoglobin 11.5 g/dl (14.0-18.0); Imm Gran Abs Auto 0.02 X10*3/uL (0.00-0.03); Imm Gran Pct Auto 0.3 % (0.0-0.4); Lymphocytes Absolute Auto 0.8 X10*3/uL (1.2-4.9); MANUAL DIFF FLAG NO; Mean Corpuscular HGB Conc 33.2 g/dl (31.0-36.0); Mean Corpuscular Hemoglobin 28.3 pg (27.0-33.0); Mean Corpuscular Volume 85.2 fL (80.0-98.0); Mean Platelet Volume 10.1 fL (9.4-12.4); Monocytes Absolute Auto 0.5 X10*3/uL (0.1-1.2); Monocytes Percent Auto 7.3 % (2-11); Neutrophils Absolute Auto 5.6 x10*3/uL (2.0-8.3); Platelet Count 191 X10*3/uL (160-400); Red Blood Count 4.06 X10*6/uL (4.60-5.80); Red Cell Distribution Width 15.9 % (11.0-16.0)
[2024-08-05 05:48] LABS: Alanine Aminotransferase 125 U/L (0-40); Albumin Level 2.9 g/dL (3.5-5.0); Alkaline Phosphatase 181 U/L (39-117); Anion Gap 16 (12-20); Aspartate Amino Transferase 331 U/L (5-37); Bilirubin Total 0.9 mg/dL (0.0-1.0); Blood Urea Nitrogen < 3 mg/dL (9-16); Calcium 7.3 mg/dL (8.4-10.2); Carbon Dioxide 22 mmol/L (22-29); Chloride 102 mmol/L (96-108); Creatinine Clr Calc Pharmacy 235.9; Estimated Glomerular Filt Rate > 60; Glucose Random 105 mg/dL (60-115); Magnesium 1.5 mg/dL (1.6-2.6); Potassium 2.9 mmol/L (3.3-5.1); Sodium 137 mmol/L (135-145); Total Protein 5.5 g/dL (6.5-8.0)
[2024-08-05 07:43] LABS: Glucose, Whole Blood 93 mg/dL (60-115)
[2024-08-05] MEDS: Magnesium Sulfate/H2O 2 GM/50 ML PIGGYBACK IV (07:55)
--- NOTE | 2024-08-05 08:16 | PC.NURSE ---
patient laying quietly in hospital bed, has sitter 1:1. patient ambulates with steady gait to the bathroom. patient is alert, awake and oriented. patient has LR running at 100ml/hr, medicated per OCT. patient resp even and unlabored, skin dry and intact. patient on tele monitor, normal sinus rhythm.
[2024-08-05] MEDS: Folic Acid 1 MG TABLET PO (09:20)
[2024-08-05] MEDS: Thiamine HCL 100 MG TABLET PO (09:20)
[2024-08-05] MEDS: Multivitamin TABLET 1 TAB PO (09:20)
[2024-08-05] MEDS: Famotidine/PF 20 MG/2 ML VIAL IVPUSH ×2 (09:21→20:24)
[2024-08-05] MEDS: Enoxaparin Sodium 40 MG/0.4 ML SYRINGE SUBCUT (09:21)
[2024-08-05] MEDS: Potassium Chloride Packet 20 MEQ PACKET 40 MEQ PO ×2 (10:06→12:35)
--- NOTE | 2024-08-05 10:13 | PHA.MEDREC ---
Addendum entered by Herman Quezada RPh 08/05/24 10:40: Med rec was reviewed by [facility]. Original Note: Pharmacy Consult ? Medication Reconciliation Pharmacy has completed the medication reconciliation. Spoke to patient to confirm med list. Patient states he is no longer using Nystop powder.
--- NOTE | 2024-08-05 13:02 | HO.PM.IMPN ---
Subjective Subjective Date of Service: 08/05/24 Interval History: Seen and evaluated this morning feels mildly better potassium low no other events Review of Systems Review of Systems: Yes all other systems are reviewed and are negative Physical Exam Vital Signs: Vital Signs: Last Vital Signs Temp 99.4 F 08/05/24 08:58 Pulse 91 08/05/24 08:58 Resp 22 H 08/05/24 08:58 BP 134/82 08/05/24 08:58 Pulse Ox 96 08/05/24 08:58 O2 Del Method Room Air 08/05/24 08:58 BMI result Body Mass Index 41.6 Const: Other: Constitutional : interactive, not in distress Cardiovascular : no JVP, no lower extremity edema Respiratory : bilateral chest movement, not in resp distress Gastrointestinal: soft, lax, Non tender Skin : Warm, Dry Neurological : Alert & oriented , No focal deficit Objective Data Active Medications Acetaminophen (Acetaminophen 325 Mg Tablet) 975 mg PO Q6H PRN PRN Reason: Pain, Mild (Pain Scale 1-3), fever or headache Calcium Carbonate (Calcium Carbonate 750 Mg Tab.Chew) 750 mg PO Q4H PRN PRN Reason: Heartburn Cyanocobalamin (Cyanocobalamin (Vitamin B-12) 1,000 Mcg Tablet) 1,000 mcg PO DAILY [facility] Enoxaparin Sodium (Enoxaparin Sodium 40 Mg/0.4 Ml Syringe) 40 mg SUBCUT Q24H [facility] Last Admin: 08/05/24 09:21 Dose: 40 mg Documented By: LITO Escitalopram Oxalate (Escitalopram Oxalate 5 Mg Tablet) 5 mg PO DAILY [facility] Famotidine (Famotidine/Pf 20 Mg/2 Ml Vial) 20 mg IVPUSH BID [facility] Last Admin: 08/05/24 09:21 Dose: 20 mg Documented By: LITO Folic Acid (Folic Acid 1 Mg Tablet) 1 mg PO DAILY [facility] Stop: 08/08/24 08:59 Last Admin: 08/05/24 09:20 Dose: 1 mg Documented By: LITO Lactated Ringer's (Lr) 1,000 mls @ 100 mls/hr IVCONT .Q10H [facility] Last Admin: 08/05/24 03:18 Dose: 100 mls/hr Documented By: BRO Magnesium Hydroxide (Milk Of Magnesia 30 Ml Oral.Susp) 30 ml PO DAILY PRN PRN Reason: Constipation Magnesium Oxide (Magnesium Oxide 400 Mg Tablet) 400 mg PO DAILY [facility] Melatonin (Melatonin 3 Mg Tablet) 6 mg PO BEDTIME PRN PRN Reason: Insomnia Morphine Sulfate (Morphine Sulfate 2 Mg/Ml Cartridge) 2 mg IVPUSH Q6H PRN; Protocol PRN Reason: Pain, Severe (Pain Scale 7-10) Multivitamins/Vitamin C (Multivitamin Tablet) 1 tab PO DAILY [facility] Stop: 08/08/24 08:59 Last Admin: 08/05/24 09:20 Dose: 1 tab Documented By: LITO Ondansetron HCl (Ondansetron Hcl 4 Mg/2 Ml Vial) 4 mg IVPUSH Q8H PRN PRN Reason: Nausea and Vomiting Oxycodone HCl (Oxycodone Hcl Immed Release 5 Mg Tablet) 5 mg PO Q6H PRN PRN Reason: Pain, Moderate(Pain Scale 4-6) Pharmacy Consult (Consult Rx Etoh Phenob Im/Po) 1 each MISCELLANE ONCE PRN; Protocol PRN Reason: Consult order Phenobarbital (Phenobarbital 15 Mg Tablet) 45 mg PO BID [facility]; Protocol Stop: 08/06/24 21:01 Phenobarbital (Phenobarbital 15 Mg Tablet) 15 mg PO BID [facility]; Protocol Stop: 08/08/24 21:01 Phenobarbital (Phenobarbital 15 Mg Tablet) 15 mg PO DAILY [facility]; Protocol Stop: 08/10/24 09:01 Sodium Chloride (0.9 % Sodium Chloride Flush 3 Ml Syringe) 3 ml IVFLUSH [facility] Last Admin: 08/05/24 08:16 Dose: Not Given Documented By: JESSICA Non-Admin Reason: IV Running Thiamine HCl (Thiamine Hcl 100 Mg Tablet) 100 mg PO DAILY [facility] Stop: 08/08/24 08:59 Last Admin: 08/05/24 09:20 Dose: 100 mg Documented By: LITO Vitamin D (Cholecalciferol (Vitamin D3) 25 Mcg Tablet) 50 mcg PO DAILY [facility] Labs 08/05/24 05:01 08/05/24 05:01 Labs: Laboratory Results - last 24 hr 08/04/24 08/04/24 08/04/24 18:35 19:47 22:00 MCV 83.4 MCH 28.3 MCHC 34.0 RDW 15.9 Plt Count 268 MPV 9.3 L Immature Gran % (Auto) 0.3 Neut % (Auto) 79.9 H Lymph % (Auto) 13.4 L Bartholomew % (Auto) 5.7 Eos % (Auto) 0.3 Baso % (Auto) 0.4 Lymph # (Auto) 1.0 L Bartholomew # (Auto) 0.4 Eos # (Auto) 0.0 Baso # (Auto) 0.0 Abs Immat Gran (auto) 0.02 Absolute Neuts (auto) 6.0 Absolute Nucleated RBC 0.000 Nucleated RBC % (auto) 0.0 Anion Gap 23 H Estim Creat Clear Calc 225.2 Estimated GFR > 60 POC Glucose Random Glucose 110 Lactic Acid 4.9 H* Lactic Acid F/U @ 2Hr 4.7 H* Lactic Acid F/U @ 4Hr Calcium 7.8 L Magnesium 1.3 L* Total Bilirubin 0.7 Direct Bilirubin 0.4 AST 475 H ALT 166 H Alkaline Phosphatase 219 H Total Protein 7.0 Albumin 3.4 L Lipase 13 Urine Color Urine Appearance Urine pH Ur Specific Dexter Urine Protein Urine Glucose (UA) Urine Ketones Urine Blood Urine Nitrite Ur Leukocyte Esterase Urine Opiates Screen Ur Buprenorphine Scrn Ur Oxycodone Screen Urine Methadone Screen Urine Fentanyl Screen Ur Barbiturates Screen Ur Phencyclidine Scrn Ur Amphetamines Screen U Benzodiazepines Scrn Urine Cocaine Screen U Marijuana (THC) Screen Ethyl Alcohol 116 Influenza Type A (PCR) NEGATIVE Influenza Type B (PCR) NEGATIVE RSV RNA Qual (PCR) NEGATIVE SARS-CoV-2 RNA (RT-PCR) NEGATIVE 08/05/24 08/05/24 08/05/24 00:24 04:44 05:01 MCV 85.2 MCH 28.3 MCHC 33.2 RDW 15.9 Plt Count 191 D MPV 10.1 Immature Gran % (Auto) 0.3 Neut % (Auto) 80.0 H Lymph % (Auto) 12.0 L Bartholomew % (Auto) 7.3 Eos % (Auto) 0.1 Baso % (Auto) 0.3 Lymph # (Auto) 0.8 L Bartholomew # (Auto) 0.5 Eos # (Auto) 0.0 Baso # (Auto) 0.0 Abs Immat Gran (auto) 0.02 Absolute Neuts (auto) 5.6 Absolute Nucleated RBC 0.000 Nucleated RBC % (auto) 0.0 Anion Gap 19 16 Estim Creat Clear Calc 256.2 235.9 Estimated GFR > 60 > 60 POC Glucose Random Glucose 95 105 Lactic Acid Lactic Acid F/U @ 2Hr Lactic Acid F/U @ 4Hr 3.1 H* Calcium 6.6 L D 7.3 L D Magnesium 1.5 L 1.5 L Total Bilirubin 0.7 0.9 Direct Bilirubin 0.4 AST 374 H 331 H ALT 138 H 125 H Alkaline Phosphatase 191 H 181 H Total Protein 6.0 L 5.5 L Albumin 2.9 L 2.9 L Lipase Urine Color Dark Yellow Urine Appearance Clear Urine pH 6.5 Ur Specific Dexter >= 1.030 H Urine Protein Trace Urine Glucose (UA) Negative Urine Ketones 15 Urine Blood Negative Urine Nitrite Negative Ur Leukocyte Esterase Negative Urine Opiates Screen Not Detected Ur Buprenorphine Scrn Not Detected Ur Oxycodone Screen Not Detected Urine Methadone Screen Not Detected Urine Fentanyl Screen Not Detected Ur Barbiturates Screen POSITIVE H Ur Phencyclidine Scrn Not Detected Ur Amphetamines Screen Not Detected U Benzodiazepines Scrn Not Detected Urine Cocaine Screen POSITIVE H U Marijuana (THC) Screen POSITIVE H Ethyl Alcohol Influenza Type A (PCR) Influenza Type B (PCR) RSV RNA Qual (PCR) SARS-CoV-2 RNA (RT-PCR) 08/05/24 07:39 MCV MCH MCHC RDW Plt Count MPV Immature Gran % (Auto) Neut % (Auto) Lymph % (Auto) Bartholomew % (Auto) Eos % (Auto) Baso % (Auto) Lymph # (Auto) Bartholomew # (Auto) Eos # (Auto) Baso # (Auto) Abs Immat Gran (auto) Absolute Neuts (auto) Absolute Nucleated RBC Nucleated RBC % (auto) Anion Gap Estim Creat Clear Calc Estimated GFR POC Glucose 93 Random Glucose Lactic Acid Lactic Acid F/U @ 2Hr Lactic Acid F/U @ 4Hr Calcium Magnesium Total Bilirubin Direct Bilirubin AST ALT Alkaline Phosphatase Total Protein Albumin Lipase Urine Color Urine Appearance Urine pH Ur Specific Dexter Urine Protein Urine Glucose (UA) Urine Ketones Urine Blood Urine Nitrite Ur Leukocyte Esterase Urine Opiates Screen Ur Buprenorphine Scrn Ur Oxycodone Screen Urine Methadone Screen Urine Fentanyl Screen Ur Barbiturates Screen Ur Phencyclidine Scrn Ur Amphetamines Screen U Benzodiazepines Scrn Urine Cocaine Screen U Marijuana (THC) Screen Ethyl Alcohol Influenza Type A (PCR) Influenza Type B (PCR) RSV RNA Qual (PCR) SARS-CoV-2 RNA (RT-PCR) Assessment and Plan (1) Suicidal ideation: Status: Acute (2) Hypocalcemia: Status: Acute (3) Hypomagnesemia: Status: Acute (4) Hypokalemia: Status: Acute (5) Alcoholic hepatitis: Status: Acute (6) Alcohol withdrawal: Status: Acute Plan Patient is a 28-year-old male with a past medical history significant for alcohol use disorder, vitamin-D deficiency, hyperparathyroidism, and history of alcohol withdrawal seizure, who presented to the ED yesterday with nausea, vomiting, upper abdominal pain and SI. Given fluid bolus due to lactic acid of 4.9, no obvious source of infection, no fever, leukocytosis or tachycardia. Not sepsis, likely starvation/alcoholic ketosis. RUQ pain, likely acute alcoholic hepatitis LFT trending down abdominopelvic CT without CBD obstruction, cholelithiasis or pancreatitis Lactic acidosis improved with fluids continue LR 100 mL/hr ,poor PO intake Severe electrolyte abnormalities K 2.9, given IV and p.o. magnesium 1.5, given 2 g multivitamin daily monitor electrolytes Telemetry Alcohol withdrawal phenobarb protocol CIWA scale seizure precautions addiction med consult folic acid, thiamine and multivitamin daily famotidine 20 mg b.i.d. for gastritis SI care team consult Morbid obesity BMI 41.6 weight loss encouraged Full code VTE prophylaxis: Lovenox Patient with acute alcoholic hepatitis complicated by severe electrolyte abnormalities and alcohol withdrawal as well as suicidal ideation, requiring overnight stay for monitoring and medication withdrawal. Quality Stroke Does the patient have a stroke diagnosis?: No VTE Prior VTE?: No VTE Risk Level:: Medical - moderate - high VTE Device Contraindication: Treatment Not Indicated VTE Drug Contraindication: N/A - Med Ordered
[2024-08-05] MEDS: PHENobarbitaL 15 MG TABLET 45 MG PO ×2 (14:32→20:24)
--- NOTE | 2024-08-05 14:40 | MHC.CM.PN ---
Attempted to meet with patient in regards to discharge planning. Nursing care currently being provided. Will attempt to meet again. Continue to monitor for d/c needs.
--- NOTE | 2024-08-05 14:43 | PC.NURSE ---
patient resting quietly in room, resp even and unlabored, patient in normal sinus rhythm. patient has LR running 100ml/hr. inpatient attending deemed patient is no longer SI and does not need sitter 1:1, sitter removed by charger. patient is polite and calm, able to make needs known. ambulates to the bathroom with steady gait
--- NOTE | 2024-08-05 18:30 | PC.NURSE ---
This RN found one 15mg tablet of phenobarb in pts bed. Grady BEGUM notified. wasted with Peace CHANDRA.
[2024-08-05] MEDS: oxyCODONE HCl Immed Release 5 MG TABLET PO (20:25)
[2024-08-06] MEDS: Lactated Ringers 1,000 ML 100 ML IVCONT ×3 (00:20→19:38)
[2024-08-06 03:05] VITALS: BP 150/90; PULSE 69; RESP 16; TEMP 37; O2SAT 97
[2024-08-06 07:47] VITALS: BP 132/78; PULSE 72; RESP 18; TEMP 36.6; O2SAT 98
[2024-08-06] MEDS: PHENobarbitaL 15 MG TABLET 45 MG PO ×2 (08:05→21:57)
[2024-08-06] MEDS: Thiamine HCL 100 MG TABLET PO (08:06)
[2024-08-06] MEDS: Magnesium Oxide 400 MG TABLET PO (08:06)
[2024-08-06] MEDS: Multivitamin TABLET 1 TAB PO (08:06)
[2024-08-06] MEDS: Escitalopram Oxalate 5 MG TABLET PO (08:06)
[2024-08-06] MEDS: Folic Acid 1 MG TABLET PO (08:06)
[2024-08-06] MEDS: Cyanocobalamin (Vitamin B-12) 1,000 MCG TABLET 1000 MCG PO (08:07)
[2024-08-06] MEDS: Famotidine/PF 20 MG/2 ML VIAL IVPUSH ×2 (08:07→21:57)
[2024-08-06] MEDS: Cholecalciferol (Vitamin D3) 25 MCG TABLET 50 MCG PO (08:07)
[2024-08-06] MEDS: Acetaminophen 325 MG TABLET 975 MG PO ×2 (08:07→18:04)
[2024-08-06] MEDS: Enoxaparin Sodium 40 MG/0.4 ML SYRINGE SUBCUT (08:08)
[2024-08-06] MEDS: 0.9 % Sodium Chloride Flush 3 ML SYRINGE IVFLUSH ×2 (08:16→21:57)
--- NOTE | 2024-08-06 08:34 | MHC.CM.PN ---
Patient lives in a house with his Father and he uses a cane to assist with mobility. Patient is here with SI(plan to swallow razors) and he will benefit from a Care Team and Recovery Team (ETOH)Consults to assist with disposition. CM has initiated and will follow for dc planning. Patient has no PCP and his Father will transport to home.
--- NOTE | 2024-08-06 09:34 | P.CDIM_ITS ---
PROVIDER RESPONSE TEXT: To clarify, the appropriate diagnosis supported by the clinical indicators: Acute QUERY TEXT: PHYSICIAN'S DOCUMENTATION REQUEST Date of Query: 08/06/2024 07:55 AM EST Patient Name: Tab Morejon Admit Date: 08/05/2024 Dear Tammy Rasmussen MD, A review of the medical record indicates additional documentation may be needed. Please review below and update the documentation accordingly. Clinical Indicators: Progress note dated 08/05 - Lactic acidosis improved with fluids. LA 4.7 3.1 Clarify which of the following accurately represents the acuity of the Lactic acidosis: Possible options might include: Acute Chronic Other (explain) Clinically unable to determine (explain) Thank you, Marilee Jade, CCS, CDIS Use of terms such as suspected, likely, concern for, or probable (associated with a specific diagnosi s that is being evaluated, monitored, or treated as if it exists) are acceptable and can be coded in the inpatient se tting, when documented at the time of discharge. Please use your independent medical judgment in providing your response. THIS QUERY IS PART OF THE PERMANENT MEDICAL RECORD
[2024-08-06 10:13] LABS: MANUAL DIFF FLAG NO
[2024-08-06 10:29] LABS: Basophils Percent Auto 0.5 % (0-2); Eosinophils Absolute Auto 0.3 X10*3/uL (0.0-0.4); Eosinophils Percent Auto 7.1 % (0-4); Hematocrit 38.1 % (42.0-52.0); Hemoglobin 12.1 g/dl (14.0-18.0); Imm Gran Abs Auto 0.01 X10*3/uL (0.00-0.03); Imm Gran Pct Auto 0.3 % (0.0-0.4); Lymphocytes Absolute Auto 0.9 X10*3/uL (1.2-4.9); Lymphocytes Percent Auto 23.2 % (20-40); Mean Corpuscular HGB Conc 31.8 g/dl (31.0-36.0); Mean Corpuscular Volume 88.2 fL (80.0-98.0); Monocytes Absolute Auto 0.2 X10*3/uL (0.1-1.2); Neutrophils Absolute Auto 2.5 x10*3/uL (2.0-8.3); Neutrophils Percent Auto 62.9 % (45-73); Red Blood Count 4.32 X10*6/uL (4.60-5.80); Red Cell Distribution Width 15.8 % (11.0-16.0)
[2024-08-06 10:52] VITALS: BP 138/89; PULSE 97; RESP 16; TEMP 37; O2SAT 97
[2024-08-06 11:07] LABS: Platelet Count 133 X10*3/uL (160-400)
[2024-08-06 11:21] LABS: Alanine Aminotransferase 110 U/L (0-40); Albumin Level 2.9 g/dL (3.5-5.0); Alkaline Phosphatase 190 U/L (39-117); Anion Gap 12 (12-20); Aspartate Amino Transferase 263 U/L (5-37); Bilirubin Direct 0.5 mg/dL (0.0-0.5); Bilirubin Total 0.9 mg/dL (0.0-1.0); Blood Urea Nitrogen < 3 mg/dL (9-16); Calcium 8.1 mg/dL (8.4-10.2); Carbon Dioxide 27 mmol/L (22-29); Chloride 105 mmol/L (96-108); Creatinine Clr Calc Pharmacy 262.9; Estimated Glomerular Filt Rate > 60; Glucose Random 94 mg/dL (60-115); Magnesium 1.7 mg/dL (1.6-2.6); Potassium 3.3 mmol/L (3.3-5.1); Sodium 141 mmol/L (135-145); Total Protein 5.8 g/dL (6.5-8.0)
--- NOTE | 2024-08-06 12:32 | P.PNIM_ITS ---
Subjective Subjective Date of Service: 08/06/24 Interval History: Seen and evaluated this morning feels mildly better electrolytes recovering no other events Review of Systems Review of Systems: Yes all other systems are reviewed and are negative Physical Exam 2 Vital Signs: Vital Signs: Last Vital Signs Temp 98.6 F 08/06/24 10:52 Pulse 97 08/06/24 10:52 Resp 16 08/06/24 10:52 BP 138/89 08/06/24 10:52 Pulse Ox 97 08/06/24 10:52 O2 Del Method Room Air 08/06/24 10:52 BMI result Body Mass Index 39.5 Const: Other: Constitutional : interactive, not in distress Cardiovascular : no JVP, no lower extremity edema Respiratory : bilateral chest movement, not in resp distress Gastrointestinal: soft, lax, Non tender Skin : Warm, Dry Neurological : Alert & oriented , No focal deficit Objective Data Active Medications Acetaminophen (Acetaminophen 325 Mg Tablet) 975 mg PO Q6H PRN PRN Reason: Pain, Mild (Pain Scale 1-3), fever or headache Last Admin: 08/06/24 08:07 Dose: 975 mg Documented By: LENA Calcium Carbonate (Calcium Carbonate 750 Mg Tab.Chew) 750 mg PO Q4H PRN PRN Reason: Heartburn Cyanocobalamin (Cyanocobalamin (Vitamin B-12) 1,000 Mcg Tablet) 1,000 mcg PO DAILY COUNT INCLUDES THE [facility] Last Admin: 08/06/24 08:07 Dose: 1,000 mcg Documented By: LENA Enoxaparin Sodium (Enoxaparin Sodium 40 Mg/0.4 Ml Syringe) 40 mg SUBCUT Q24H COUNT INCLUDES THE [facility] Last Admin: 08/06/24 08:08 Dose: 40 mg Documented By: LENA Escitalopram Oxalate (Escitalopram Oxalate 5 Mg Tablet) 5 mg PO DAILY COUNT INCLUDES THE [facility] Last Admin: 08/06/24 08:06 Dose: 5 mg Documented By: LENA Famotidine (Famotidine/Pf 20 Mg/2 Ml Vial) 20 mg IVPUSH BID COUNT INCLUDES THE [facility] Last Admin: 08/06/24 08:07 Dose: 20 mg Documented By: LENA Folic Acid (Folic Acid 1 Mg Tablet) 1 mg PO DAILY COUNT INCLUDES THE [facility] Stop: 08/08/24 08:59 Last Admin: 08/06/24 08:06 Dose: 1 mg Documented By: LENA Lactated Ringer's (Lr) 1,000 mls @ 100 mls/hr IVCONT .Q10H COUNT INCLUDES THE [facility] Last Admin: 08/06/24 10:30 Dose: 100 mls/hr Documented By: LENA Magnesium Hydroxide (Milk Of Magnesia 30 Ml Oral.Susp) 30 ml PO DAILY PRN PRN Reason: Constipation Magnesium Oxide (Magnesium Oxide 400 Mg Tablet) 400 mg PO DAILY COUNT INCLUDES THE [facility] Last Admin: 08/06/24 08:06 Dose: 400 mg Documented By: LENA Melatonin (Melatonin 3 Mg Tablet) 6 mg PO BEDTIME PRN PRN Reason: Insomnia Morphine Sulfate (Morphine Sulfate 2 Mg/Ml Cartridge) 2 mg IVPUSH Q6H PRN; Protocol PRN Reason: Pain, Severe (Pain Scale 7-10) Multivitamins/Vitamin C (Multivitamin Tablet) 1 tab PO DAILY COUNT INCLUDES THE [facility] Stop: 08/08/24 08:59 Last Admin: 08/06/24 08:06 Dose: 1 tab Documented By: LENA Ondansetron HCl (Ondansetron Hcl 4 Mg/2 Ml Vial) 4 mg IVPUSH Q8H PRN PRN Reason: Nausea and Vomiting Oxycodone HCl (Oxycodone Hcl Immed Release 5 Mg Tablet) 5 mg PO Q6H PRN PRN Reason: Pain, Moderate(Pain Scale 4-6) Last Admin: 08/05/24 20:25 Dose: 5 mg Documented By: LENA Pharmacy Consult (Consult Rx Etoh Phenob Im/Po) 1 each MISCELLANE ONCE PRN; Protocol PRN Reason: Consult order Phenobarbital (Phenobarbital 15 Mg Tablet) 45 mg PO BID COUNT INCLUDES THE [facility]; Protocol Stop: 08/06/24 21:01 Last Admin: 08/06/24 08:05 Dose: 45 mg Documented By: LENA Phenobarbital (Phenobarbital 15 Mg Tablet) 15 mg PO BID COUNT INCLUDES THE [facility]; Protocol Stop: 08/08/24 21:01 Phenobarbital (Phenobarbital 15 Mg Tablet) 15 mg PO DAILY COUNT INCLUDES THE [facility]; Protocol Stop: 08/10/24 09:01 Sodium Chloride (0.9 % Sodium Chloride Flush 3 Ml Syringe) [facility] Last Admin: 08/06/24 08:16 Dose: 3 ml Documented By: LENA Thiamine HCl (Thiamine Hcl 100 Mg Tablet) 100 mg PO DAILY COUNT INCLUDES THE [facility] Stop: 08/08/24 08:59 Last Admin: 08/06/24 08:06 Dose: 100 mg Documented By: LENA Vitamin D (Cholecalciferol (Vitamin D3) 25 Mcg Tablet) 50 mcg PO DAILY COUNT INCLUDES THE [facility] Last Admin: 08/06/24 08:07 Dose: 50 mcg Documented By: LENA Labs 08/06/24 09:16 08/06/24 09:16 Labs: Laboratory Results - last 24 hr 08/06/24 09:16 MCV 88.2 MCH 28.0 MCHC 31.8 RDW 15.8 Plt Count 133 L D MPV 11.0 Immature Gran % (Auto) 0.3 Neut % (Auto) 62.9 Lymph % (Auto) 23.2 [place] % (Auto) 6.0 Eos % (Auto) 7.1 H Baso % (Auto) 0.5 Lymph # (Auto) 0.9 L [place] # (Auto) 0.2 Eos # (Auto) 0.3 Baso # (Auto) 0.0 Abs Immat Gran (auto) 0.01 Absolute Neuts (auto) 2.5 Absolute Nucleated RBC 0.000 Nucleated RBC % (auto) 0.0 Anion Gap 12 Estim Creat Clear Calc 262.9 Estimated GFR > 60 Random Glucose 94 Calcium 8.1 L D Magnesium 1.7 Total Bilirubin 0.9 Direct Bilirubin 0.5 AST 263 H ALT 110 H Alkaline Phosphatase 190 H Total Protein 5.8 L Albumin 2.9 L Microbiology Microbiology Results: Microbiology 08/04/24 21:02 Blood Culture - Preliminary Blood - Venous No growth after 24 hours. 08/04/24 21:02 Blood Culture - Preliminary Blood - Venous No growth after 24 hours. Assessment and Plan (1) Suicidal ideation: Status: Acute (2) Hypocalcemia: Status: Acute (3) Hypomagnesemia: Status: Acute (4) Hypokalemia: Status: Acute (5) Morbid obesity with BMI of 40.0-44.9, adult: Status: Chronic (6) Alcoholic hepatitis: Status: Acute (7) Alcohol withdrawal: Status: Acute Plan Patient is a 28-year-old male with a past medical history significant for alcohol use disorder, vitamin-D deficiency, hyperparathyroidism, and history of alcohol withdrawal seizure, who presented to the ED yesterday with nausea, vomiting, upper abdominal pain and SI. Given fluid bolus due to lactic acid of 4.9, no obvious source of infection, no fever, leukocytosis or tachycardia. Not sepsis, likely starvation/alcoholic ketosis. RUQ pain, likely acute alcoholic hepatitis LFT trending down abdomin/pelvic CT without CBD obstruction, cholelithiasis or pancreatitis Lactic acidosis improved with fluids continue LR 100 mL/hr , PO intake as tolerated Severe electrolyte abnormalities resolved with supplements multivitamin daily monitor electrolytes Telemetry Alcohol withdrawal phenobarb protocol CIWA scale seizure precautions addiction med consult folic acid, thiamine and multivitamin daily famotidine 20 mg b.i.d. for gastritis SI denies any plans or intentions at this point care team consult when medically clear Morbid obesity BMI 41.6 weight loss encouraged Full code VTE prophylaxis: Lovenox Patient with acute alcoholic hepatitis complicated by severe electrolyte abnormalities and alcohol withdrawal as well as suicidal ideation, requiring overnight stay for monitoring and medication withdrawal. Quality Stroke Does the patient have a stroke diagnosis?: No VTE Prior VTE?: No VTE Risk Level:: Medical - moderate - high VTE Device Contraindication: Treatment Not Indicated VTE Drug Contraindication: N/A - Med Ordered
--- NOTE | 2024-08-06 12:45 | MHC.RECOVRN ---
AUDIT-C Brief Intervention Pt had positive screen for unhealthy alcohol use on admission, subsequently met with t/w to discuss alcohol use and recovery supports/options. This lead technical writer met with patient to discuss current alcohol use and concerns related to increased risk of alcohol related problems.? Pt reports 1 handle of vodka over the span of 2 days this past weekend. Pt reports prior to that his last drink was December 29, 2023. Pt reports recurrence occurred due to mental health. Pt reports he was manic and had alcohol delivered. Discussed how alcohol use has impacted health, including negative impact on overall physical wellbeing. Withdrawal History: reports history of withdrawal seizures Treatment History: one hospitalization, connected to the [facility] and is prescribed naltrexone (pt reports he lost his naltrexone 2 weeks ago and has not been taking it) Supports:?parents and girlfriend Discussed risk reduction strategies including drinking below the recommended limit. Provided pt with written resources including information on inpatient and outpatient treatment, [facility], harm reduction, and recovery coaching. Pt plans to continue care with the [facility] upon discharge. Pt provided with t/w contact information if questions or concerns arise. Denies other questions or concerns at this time.?
[2024-08-06 15:11] VITALS: BP 120/80; PULSE 85; RESP 18; TEMP 36.8; O2SAT 99
[2024-08-06] MEDS: ondansetron HCL 4 MG/2 ML VIAL IVPUSH (18:08)
[2024-08-06 19:16] VITALS: BP 126/83; PULSE 87; RESP 18; TEMP 36.7; O2SAT 98
[2024-08-06 23:32] VITALS: BP 145/80; PULSE 65; RESP 18; TEMP 36.2; O2SAT 98
[2024-08-07 03:43] VITALS: BP 125/80; PULSE 58; RESP 18; TEMP 36.4; O2SAT 97
[2024-08-07] MEDS: oxyCODONE HCl Immed Release 5 MG TABLET PO (05:05)
[2024-08-07 07:00] LABS: MANUAL DIFF FLAG NO
[2024-08-07 07:07] LABS: Basophils Percent Auto 0.6 % (0-2); Eosinophils Absolute Auto 0.3 X10*3/uL (0.0-0.4); Eosinophils Percent Auto 7.7 % (0-4); Hematocrit 39.5 % (42.0-52.0); Hemoglobin 12.9 g/dl (14.0-18.0); Imm Gran Abs Auto 0.02 X10*3/uL (0.00-0.03); Imm Gran Pct Auto 0.6 % (0.0-0.4); Lymphocytes Absolute Auto 1.2 X10*3/uL (1.2-4.9); Lymphocytes Percent Auto 32.6 % (20-40); Mean Corpuscular HGB Conc 32.7 g/dl (31.0-36.0); Mean Corpuscular Hemoglobin 28.1 pg (27.0-33.0); Mean Corpuscular Volume 86.1 fL (80.0-98.0); Mean Platelet Volume 10.7 fL (9.4-12.4); Monocytes Absolute Auto 0.3 X10*3/uL (0.1-1.2); Monocytes Percent Auto 7.7 % (2-11); Neutrophils Absolute Auto 1.8 x10*3/uL (2.0-8.3); Neutrophils Percent Auto 50.8 % (45-73); Platelet Count 111 X10*3/uL (160-400); Red Blood Count 4.59 X10*6/uL (4.60-5.80); Red Cell Distribution Width 15.5 % (11.0-16.0); White Blood Count 3.6 X10*3/uL (4.8-10.8)
[2024-08-07 07:24] LABS: Alanine Aminotransferase 100 U/L (0-40); Albumin Level 2.6 g/dL (3.5-5.0); Alkaline Phosphatase 178 U/L (39-117); Anion Gap 10 (12-20); Aspartate Amino Transferase 217 U/L (5-37); Bilirubin Total 0.6 mg/dL (0.0-1.0); Blood Urea Nitrogen < 3 mg/dL (9-16); Calcium 7.6 mg/dL (8.4-10.2); Carbon Dioxide 26 mmol/L (22-29); Chloride 106 mmol/L (96-108); Creatinine Clr Calc Pharmacy 289.2; Estimated Glomerular Filt Rate > 60; Glucose Random 76 mg/dL (60-115); Magnesium 1.8 mg/dL (1.6-2.6); Potassium 3.5 mmol/L (3.3-5.1); Sodium 138 mmol/L (135-145); Total Protein 5.5 g/dL (6.5-8.0)
[2024-08-07 07:45] VITALS: BP 126/80; PULSE 61; RESP 18; TEMP 36.2; O2SAT 98
[2024-08-07] MEDS: Cyanocobalamin (Vitamin B-12) 1,000 MCG TABLET 1000 MCG PO (09:35)
[2024-08-07] MEDS: Cholecalciferol (Vitamin D3) 25 MCG TABLET 50 MCG PO (09:35)
[2024-08-07] MEDS: Folic Acid 1 MG TABLET PO (09:35)
[2024-08-07] MEDS: Famotidine/PF 20 MG/2 ML VIAL IVPUSH (09:36)
[2024-08-07] MEDS: Multivitamin TABLET 1 TAB PO (09:36)
[2024-08-07] MEDS: Enoxaparin Sodium 40 MG/0.4 ML SYRINGE SUBCUT (09:36)
[2024-08-07] MEDS: PHENobarbitaL 15 MG TABLET PO (09:36)
[2024-08-07] MEDS: Magnesium Oxide 400 MG TABLET PO (09:36)
[2024-08-07] MEDS: 0.9 % Sodium Chloride Flush 3 ML SYRINGE IVFLUSH (09:36)
[2024-08-07] MEDS: Thiamine HCL 100 MG TABLET PO (09:36)
[2024-08-07] MEDS: Escitalopram Oxalate 5 MG TABLET PO (09:36)
--- NOTE | 2024-08-07 11:13 | P.DS_ITS ---
DS: Providers Provider Date of Service: 08/07/24 Date of admission: 08/05/24 02:13 Date of discharge: 08/07/24 Primary care physician: Miguel Rebolledo MD Consults: 08/04/24 17:52 Consult to Care Team Stat Comment: Reason for consultation: suicidal ideation 08/05/24 02:13 Addiction Medicine Routine Consulting Provider: Addiction Covering Reason for consultation: etoh abuse, withdrawal Has provider been notified: No 08/07/24 07:59 Consult to Care Team Routine Comment: Reason for consultation: Medically clear, suicidal ideation DS: Diagnosis Discharge Diagnosis (1) Suicidal ideation: Status: Acute (2) Hypocalcemia: Status: Acute (3) Hypomagnesemia: Status: Acute (4) Hypokalemia: Status: Acute (5) Morbid obesity with BMI of 40.0-44.9, adult: Status: Chronic (6) Alcoholic hepatitis: Status: Acute (7) Alcohol withdrawal: Status: Acute DS: Summary Hospital Course Hospital Course: Admission note HPI Patient is a 28-year-old male with a past medical history significant for alcohol use disorder, vitamin-D deficiency, hyperparathyroidism, and history of alcohol withdrawal seizure, who presented to the ED yesterday with nausea, vomiting, upper abdominal pain and SI. He reported a plan to swallow razors. He has a history of heavy alcohol use reports he has been sober up until recently a few days ago when he started drinking 1 handle of vodka daily. He denies any smoking history or drug use aside from occasional marijuana. He reports a recent fall while intoxicated with an unsteady gait and states he fell on to his back. 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 He also reported a history of withdrawal hallucinations and possible seizure. He has a bilateral headache since his fall recently. He describes sharp right upper quadrant pain rating it a 3/10 now but previously was much more severe. He was also nauseous and vomiting frequently which has now subsided. He denies any hematemesis or issues with his bowels including melena or hematochezia. He also denies any fever, chills, chest pain, shortness of breath or URI symptoms. Hospital course The patient was evaluated for right upper quaderent abdominal pain after binge drinking episode. abdomin/pelvic CT without CBD obstruction, cholelithiasis or pancreatitis. LFT trended down during the hospital stay. He had Lactic acidosis improved with fluids. pain resolved. unlikely to be alcoholic hepatitis as Bilirubin and INR normal. Transaminitis likely from alcohol consumption. To be followed as outpatient. He was noted to have Severe electrolyte abnormalities of low Mg, low K and low Ca. resolved with supplements Treated for Alcohol withdrawal with phenobarb protocol and CIWA scale with seizure precautions, He was seen by addiction med consult who sent Naltrexone for alcohol abuse. Continue folic acid, thiamine and multivitamin daily. Start famotidine 20 mg for gastritis He reported suicidal ideation at time of presentation but the denied any plans or intentions at this point. Seen by care team consult who cleared him to go home and provided outpatient resources. Discharge plan We advise you complete abstinence from Alcohol Naltrexone was prescribed by recovery team; to follow as outpatient Stay well hydrated Follow with outpatient resources as provided Time Attestation Discharge Coordination Time (in mins): 38 Quality: Safe Use of Opioids Does Pt have an Active Cancer Diagnosis on the Problem List?: No Quality: Stroke Does the patient have a stroke diagnosis?: No Physical Exam Vital Signs: Vital Signs: Last Vital Signs Temp 97.1 F 08/07/24 07:45 Pulse 61 08/07/24 07:45 Resp 18 08/07/24 07:45 BP 126/80 08/07/24 07:45 Pulse Ox 98 08/07/24 07:45 O2 Del Method Room Air 08/07/24 07:45 BMI result Body Mass Index 39.5 Const: Other: Constitutional : interactive, not in distress Cardiovascular : no JVP, no lower extremity edema Respiratory : bilateral chest movement, not in resp distress Gastrointestinal: soft, lax, Non tender Skin : Warm, Dry Neurological : Alert & oriented , No focal deficit DS: Data Data Completed and Pending Completed studies during hospitalization [Text1]: Procedures Detoxification Services for Substance Abuse Treatment (06/01/24) Labs on day of discharge: Laboratory Results - last 24 hr 08/06/24 08/07/24 09:16 06:40 WBC 3.6 L RBC 4.59 L Hgb 12.9 L Hct 39.5 L MCV 86.1 MCH 28.1 MCHC 32.7 RDW 15.5 Plt Count 111 L MPV 10.7 Immature Gran % (Auto) 0.6 H Neut % (Auto) 50.8 Lymph % (Auto) 32.6 [place] % (Auto) 7.7 Eos % (Auto) 7.7 H Baso % (Auto) 0.6 Lymph # (Auto) 1.2 [place] # (Auto) 0.3 Eos # (Auto) 0.3 Baso # (Auto) 0.0 Abs Immat Gran (auto) 0.02 Absolute Neuts (auto) 1.8 L Absolute Nucleated RBC 0.000 Nucleated RBC % (auto) 0.0 Sodium 141 138 Potassium 3.3 3.5 Chloride 105 106 Carbon Dioxide 27 26 Anion Gap 12 10 L BUN < 3 L < 3 L Creatinine 0.55 0.50 Estim Creat Clear Calc 262.9 289.2 Estimated GFR > 60 > 60 Random Glucose 94 76 Calcium 8.1 L D 7.6 L D Magnesium 1.7 1.8 Total Bilirubin 0.9 0.6 Direct Bilirubin 0.5 AST 263 H 217 H ALT 110 H 100 H Alkaline Phosphatase 190 H 178 H Total Protein 5.8 L 5.5 L Albumin 2.9 L 2.6 L Preliminary micro results at discharge 08/04/24 21:02 Blood Culture - Preliminary Blood - Venous No growth after 48 hours. 08/04/24 21:02 Blood Culture - Preliminary Blood - Venous No growth after [address] scan - abdomen: Radiologist's impression: ITS Impressions Abdomen/Pelvis CT 08/04/24 20:38 IMPRESSION: 1. Status post sleeve gastrectomy. Small, sliding hiatal hernia. No small or large bowel obstruction. No bowel wall thickening or inflammatory change. Unremarkable appendix. 2. Hepatic steatosis. No hepatic parenchymal lesion or biliary ductal dilatation. 3. No new intra-abdominal mass, lymphadenopathy, or ascites. Fleischner guidelines were followed. Electronically signed by: Mike Arreola MD 08/04/2024 09:30 PM EST RP Head CT 08/04/24 20:38 IMPRESSION: No acute intracranial hemorrhage or mass effect. Electronically signed by: Mike Arreola MD 08/04/2024 09:22 PM [facility] RP Discharge Plan Discharge Anticipated Discharge Date/Time: 08/07/24 11:09 Patient Disposition: Home, Self-Care Discharge Diagnosis: Electrolytes imbalance Suicidal ideation Alcohol withdrawal and abuse Referrals: Physician,None [Physician] - 1 Week Way[place],Amena, PHYSICAL EDUCATION TEACHER [Nurse Practitioner] - 08/21/24 11:30 am (Telehealth appt with Amena Connors 08/21/24 11:30AM) Discharge Medications: New famotidine 40 mg tablet 40 mg PO DAILY Qty: 90 0RF Continued folic acid 1 mg tablet 1 mg PO DAILY Qty: 90 0RF multivitamin Tablet 1 tab PO DAILY citalopram 10 mg tablet 10 mg PO DAILY thiamine HCl (vitamin B1) [Vitamin B-1] 100 mg tablet 100 mg PO DAILY magnesium oxide 400 mg (241.3 mg magnesium) tablet 400 mg PO DAILY cholecalciferol (vitamin D3) 50 mcg (2,000 unit) capsule 50 mcg PO DAILY cyanocobalamin (vitamin B-12) [Vitamin B-12] 1,000 mcg Tablet 1,000 mcg PO DAILY Discharge Orders: Discharge Order (Routine); Ordered 08/07/24 Ordered By: Tammy Rasmussen Diet: Advance to usual diet Activity on Discharge: As tolerated Stand Alone Forms: Patient Portal Discharge page Print Language: Pashto Other Ambulatory Orders: Liver Panel (Routine) Timeframe: 1 Week Facility: [facility] - Location: Laboratory Ordered By: Tammy Rasmussen Care Plan Goals: We advise you complete abstinence from Alcohol Naltrexone was prescribed by recovery team; to follow as outpatient Stay well hydrated Follow with outpatient resources as provided Follow liver function test with primary physician Health Concerns: Alcohol abuse and withdrawal Plan of Treatment: Abstinence Naltrexone Assessment: as above
--- NOTE | 2024-08-07 11:29 | MHC.CM.PN ---
Patient has been medically cleared for dc to home today, self care.
[2024-08-07 11:43] VITALS: BP 133/79; PULSE 85; RESP 18; TEMP 37; O2SAT 97
--- NOTE | 2024-08-07 12:21 | MHC.CARE ---
Referral to [facility] and [facility] were complete.
--- NOTE | 2024-08-07 12:36 | MHC.CM.PN ---
Patient will dc to home today at 1:30 PM, via [facility] Shuttle.
--- NOTE | 2024-08-07 13:05 | MHC.CM.PN ---
Patient's Father arrived to provide transport to home; [facility] Shuttle ride has been canceled.
== END 2024-08-07 13:15 | disposition home or self-care (01) | DRG 280 ==
LOC: HO.ED 08-05 02:42 → HO.EDOVER 08-05 03:00 → HO.IMC 08-05 15:42
PROVIDERS: Nurse Practitioner Family; Physician Assistant Medical; Admitting Provider Physician Assistant; Emergency Provider Emergency Medicine; PCP Family Medicine; Visit Provider Student in an Organized Health Care Education/Training Program
DX: K70.10 Alcoholic hepatitis without ascites (principal); E87.21 Acute metabolic acidosis; R45.851 Suicidal ideations; E66.01 Morbid (severe) obesity due to excess calories; G62.1 Alcoholic polyneuropathy; F10.288 Alcohol dependence with other alcohol-induced disorder; E83.42 Hypomagnesemia; E87.6 Hypokalemia; F10.239 Alcohol dependence with withdrawal, unspecified; Y90.5 Blood alcohol level of 100-119 mg/100 ml; Z68.41 Body mass index [BMI] 40.0-44.9, adult; Z71.41 Alcohol abuse counseling and surveillance of alcoholic; Z20.822 Contact with and (suspected) exposure to COVID-19; Z98.84 Bariatric surgery status; Z79.899 Other long term (current) drug therapy
CPT/HCPCS: 0241U; 36415; 70450; 74177; 80048; 80053; 80076; 80307; 81003; 82947; 83605; 83690; 83735; 85025; 87040; 93005; 99285; J0613; J0690; J1650; J2405; J2560; J3475; J3480; J7120; Q9967

== ENCOUNTER → 2024-08-05 02:13 | Outpatient (BNV) | payer OTHER, SELFPAY | PROVIDERS: Admitting Provider Physician Assistant; Emergency Provider Emergency Medicine; Visit Provider Student in an Organized Health Care Education/Training Program | DX: R45.851 Suicidal ideations (principal); E83.51 Hypocalcemia; E83.42 Hypomagnesemia; E87.6 Hypokalemia; E66.01 Morbid (severe) obesity due to excess calories; Z68.41 Body mass index [BMI] 40.0-44.9, adult; K70.10 Alcoholic hepatitis without ascites; F10.939 Alcohol use, unspecified with withdrawal, unspecified | CPT/HCPCS: 99232; 99239 ==

== ENCOUNTER 2024-08-14 08:48 | Outpatient (AMB) | payer OTHER, SELFPAY ==
[2024-08-14 08:53] VITALS: BP 140/90; PULSE 71; O2SAT 92
--- NOTE | 2024-08-14 08:53 | MHC.AM.SUB ---
Vital Signs 08/14/24 08:53 BP 140/90 H Blood Pressure Location Lt brachial Position Sitting Pulse 71 Pulse Source Pulse Oximeter Pulse Oximetry (%) 92 Oxygen Delivery Method Room Air Intake Visit Reasons: MAT Allergies amoxicillin Allergy (Unknown, Verified 08/05/24 07:35) hives Penicillins [PENICILLINS] Allergy (Unknown, Verified 08/05/24 07:35) ANAPHYLAXIS red dye [RED DYE] Allergy (Unknown, Verified 08/05/24 07:35) UNKNOWN shrimp [SHRIMP] Allergy (Unknown, Verified 08/05/24 07:35) UNKNOWN Sulfa (Sulfonamide Antibiotics) Allergy (Unknown, Verified 08/05/24 07:35) hives sulfamethoxazole [From BACTRIM] Allergy (Unknown, Verified 08/05/24 07:35) UNKNOWN trimethoprim [From BACTRIM] Allergy (Unknown, Verified 08/05/24 07:35) UNKNOWN Biaxin Allergy (Unknown, Uncoded 08/05/24 07:35) hives SEAFOOD Allergy (Unknown, Uncoded 08/05/24 07:35) UNKNOWN HPI HPI MAT: Details: Patient presents for AUD treatment follow up Recently discharged from hospital Restarted Naltrexone which he finds to be helpful with cravings Denies any alcohol intake since prior to admission Bright affect Met with Cat Hooker from [facility] --did not go well, encouraged patient to meet with someone else Therapy intake soon Discussed triggers --GF still drinking ---reviewed how to approach that Sleep improved overall physically improved --energy, lack of headaches, sleep improved. Acknowledges how much has improved since etoh stopped ambulation improved, but still can not do stairs Review of Systems Const Reports as per HPI Physical Exam Vital Signs: Last Vital Signs Pulse 71 08/14/24 08:53 BP 140/90 H 08/14/24 08:53 Pulse Ox 92 08/14/24 08:53 Oxygen Delivery Method Room Air 08/14/24 08:53 Const General: cooperative, healthy appearing, comfortable and well groomed Orientation/consciousness: patient oriented x3 Neuro General: patient oriented x3 Psych Appearance: well kempt Speech and movement: Normal speech and movement present Affect: normal affect Attitude: cooperative Thought process: Normal thought process present Thought content: Normal thought content present Insight: Good insight present (Psych) Judgement: Good judgement present (Psych) Assessment & Plan Assessment & Plan (1) Alcohol use disorder, severe, dependence: Code(s): F10.20 - Alcohol dependence, uncomplicated Category: Medical Plan: continue naltrexone continue with [facility] for treatment follow up 3 weeks relapse prevention discussion [facility] Medical History (Updated 08/14/24 @ 09:16 by Amena Connors CNP) Alcohol use disorder, severe, dependence Hyperparathyroidism Vitamin D deficiency Alcohol use disorder Electrolyte imbalance Acidosis, lactic Weakness Acute hypokalemia Hypomagnesemia Alcohol abuse Obesity Hypocalcemia Anxiety ADHD Periodontitis Alcoholism Hernia Surgical History H/O gastric sleeve Social History (System 08/05/24 @ 07:35 by Luisa Hull) Household Members: Family Household Members Other:: parents, grandma and girlfriend Housing: House Do you presently have visiting nurse or other home services: No Alcohol intake: current Alcohol type: hard liquor Comment: refusing fall risk intervention. Patient Tobacco Use Status: Never used Tobacco Substance Use Type: Marijuana service: No Social History: Born in [place]. One sister, estranged, Lives in [place]. Lives with father, grandmother and girlfriend. Mom lives in [place] No children. Girlfriend has 3 children but does not have custody. 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 Substance History: Alcohol Cocaine - once weekly Trauma History: Affirms
== END 2024-08-14 10:06 | disposition home or self-care (01) ==
PROVIDERS: Visit Provider Nurse Practitioner Psychiatric/Mental Health
DX: F10.20 Alcohol dependence, uncomplicated (principal)
CPT/HCPCS: 99214

== ENCOUNTER → 2024-08-14 08:48 | Outpatient (BNVA) | payer OTHER, SELFPAY | PROVIDERS: Visit Provider Nurse Practitioner Psychiatric/Mental Health | DX: F10.20 Alcohol dependence, uncomplicated (principal); Z51.81 Encounter for therapeutic drug level monitoring; Z79.899 Other long term (current) drug therapy | CPT/HCPCS: 99212 ==

== ENCOUNTER 2024-08-20 15:43 | Outpatient (AMB) | payer OTHER, SELFPAY ==
--- NOTE | 2024-08-20 15:44 | A.OFFPC_ITS ---
Vital Signs 08/20/24 15:48 Height 5 ft 10 in Weight 278 lb BMI 39.9 BP 118/72 Blood Pressure Location Lt brachial Position Sitting Respiration 12 Pulse 86 Pulse Source Pulse Oximeter Pulse Oximetry (%) 98 Oxygen Delivery Method Room Air Intake Visit Reasons: dis from [facility] Intake Note: follow up discharge from [facility] Fence Repairman Required: No Allergies amoxicillin Allergy (Unknown, Verified 08/20/24 15:45) hives Penicillins [PENICILLINS] Allergy (Unknown, Verified 08/20/24 15:45) ANAPHYLAXIS red dye [RED DYE] Allergy (Unknown, Verified 08/20/24 15:45) UNKNOWN shrimp [SHRIMP] Allergy (Unknown, Verified 08/20/24 15:45) UNKNOWN Sulfa (Sulfonamide Antibiotics) Allergy (Unknown, Verified 08/20/24 15:45) hives sulfamethoxazole [From BACTRIM] Allergy (Unknown, Verified 08/20/24 15:45) UNKNOWN trimethoprim [From BACTRIM] Allergy (Unknown, Verified 08/20/24 15:45) UNKNOWN Biaxin Allergy (Unknown, Uncoded 08/05/24 07:35) hives SEAFOOD Allergy (Unknown, Uncoded 08/05/24 07:35) UNKNOWN Tobacco use date assessed: 08/20/24 Dental Screening Dental Screen Date: 08/20/24 Did you have a dental visit in the last 12 months?: Yes Did you have a dental problem in the last 6 months where you did not have access to dental care?: No Was dental information given to patient?: Patient has dentist HPI HPI Comments History of Present Illness Details This is a 28-year-old male with a past medical history of severe alcohol use disorder, cocaine abuse, ADHD, anxiety and neuropathy presenting for hospital follow up. Patient was [place] [facility] [place]05[place] through 08/07/2024 for alcohol withdrawal. He presented to the ED with nausea, vomiting, upper abdominal pain, suicide ideation. He reported a plan to swallow razors. He had been sober reportedly up until a few days before going to the ER when he started drinking 1 handle of vodka daily. He denied drug use aside from occasional marijuana. He reported a fall while intoxicated and had low back pain but no numbness or tingling. He also reported a history of withdrawal hallucinations and possibly seizure. He reported bilateral headaches since his fall. Patient had reported abdominal pain after binge drinking. Abdomen/pelvic CT was without CBD obstruction, cholelithiasis or pancreatitis. LFTs trended down during hospital stay. Had lactic acidosis with improvement on fluids. This pain resolved. He was noted to have severe electrolyte abnormalities of low Mag, K and calcium. This resolved with supplements. He was instructed to finish the supplements. He is still taking them. He was treated for alcohol withdrawal with phenobarbital protocol and he was seen by addiction Medicine who sent naltrexone for alcohol use. He was instructed to continue folic acid, thiamine, multivitamin and start famotidine 20 mg twice daily for gastritis. He is compliant with naltrexone. He endorses sobriety from alcohol since before admission. He has no further abdominal pain. Smokes marijuana. He occasionally uses cocaine. He was seen by behavioral health team who cleared him to go home and provided outpatient resources. Patient denies further episodes of SI or HI. He had a follow up with addiction Medicine on 08/14/2024. The patient is scheduled with a therapist and psychiatrist at [facility] in August. He met with a track coach, but he was not satisfied with the visit. He would like to know if he can increase citalopram from 10 mg to 20 mg. He is still having a lot of anxiety. He says this causes depressive symptoms. He also reports history of ADHD. Continues to endorse pain on both sides of his lower back since the fall. He has had episodes of muscle spasms in his requesting a muscle relaxant. Patient has stable neuropathy but no new numbness or tingling. No loss of bowel or bladder control. ROS: Constitutional: No unexplained weight loss, fever, chills, fatigue or night sweats. Genitourinary: No dysuria, hematuria, urinary frequency. Neurologic: No headache, dizziness, syncope Musculoskeletal: see HPI Psychiatric: No SI/HI. Physical exam: Respiratory: Clear to auscultation. Cardiovascular: S1 S2 regular. No murmurs Genitourinary: No costovertebral angle tenderness. Spine: No midline tenderness. Tender lumbar paraspinal muscles bilaterally. pain reproduced with lumbar flexion. Symmetric patellar reflexes. Normal gait. Psychiatric: Normal mood and affect [facility] Medical History (Updated 08/20/24 @ 17:14 by STEFANI Herrera) Low back pain Morbid obesity with BMI of 40.0-44.9, adult Alcohol use disorder, severe, dependence Hyperparathyroidism Vitamin D deficiency Alcohol use disorder Electrolyte imbalance Acidosis, lactic Weakness Acute hypokalemia Hypomagnesemia Alcohol abuse Obesity Hypocalcemia Anxiety ADHD Periodontitis Alcoholism Hernia Surgical History H/O gastric sleeve Social History (System 08/05/24 @ 07:35 by Luisa Hull) Household Members: Family Household Members Other:: parents, grandma and girlfriend Housing: House Do you presently have visiting nurse or other home services: No Alcohol intake: current Alcohol type: hard liquor Comment: refusing fall risk intervention. Patient Tobacco Use Status: Never used Tobacco Substance Use Type: Marijuana service: No Cognitive needs: No Hearing needs: No Vision needs: No Questionnaire PHQ-9 Over the last 2 weeks, how often have you been bothered by any of the following problems? 03992 - PHQ-9 Billing: Patient declined-do not bill Source: Developed by Drs. Bandar Kwong, Donna Romero, Kirill Bell and colleagues, with an educational ortiz from [employer]. Thrive Questionnaire Date Thrive assessed: 08/20/24 I am a: Patient What is your living situation today?: I have a steady place to live Within the past 12 months, did the food you bought not last and you didn't have the money to get more?: Never true Within the past 12 months, did you worry whether your food would run out before you got money to buy more?: Never true Do you have trouble paying for medicines?: No Do you have trouble getting transportation to medical appointments?: I choose not to answer this question Do you have trouble paying your heating and electricity bill?: No Do you have trouble taking care of your child, family member or friend?: No Do you have trouble with day-to-day activities such as bathing, preparing meals, shopping, managing finances, etc.?: Yes Are you currently unemployed and looking for a job?: Yes Are you interested in more education?: No Please select the resources that you would like help with: Transportation Currently or been in a relationship where the following occur: No concerns reported THRIVE Score: 0 ODETTE-7 AMB Questionnaire ODETTE-7 Date ODETTE - 7 assessed: 08/20/24 Feeling nervous, anxious, or on edge: 0 = Not at all Not being able to stop or control worryin = Not at all Worrying too much about different things: 0 = Not at all Trouble relaxin = Not at all Being so restless that it is hard to sit still: 0 = Not at all Becoming easily annoyed or irritable: 0 = Not at all Feeling afraid as if something awful might happen: 0 = Not at all Total ODETTE-7 score (0-4 normal; 5-9 mild; 10-14 moderate; 15-21 severe): 0 Source: Developed by Drs. Bandar Kwong, Donna Romero, Kirill Bell and colleagues, with an educational ortiz from [employer]. ODETTE-7 Assessment Billing ODETTE-7 Assessment Tool: ODETTE-7 Assessment 36197 Physical exam (Primary Care) Vital Signs: Last Vital Signs Pulse 86 08/20/24 15:48 Resp 12 08/20/24 15:48 BP 118/72 08/20/24 15:48 Pulse Ox 98 08/20/24 15:48 Oxygen Delivery Method Room Air 08/20/24 15:48 BMI result Body Mass Index 39.9 Tobacco/Smoking Status: Tobacco use Status Tobacco use date assessed 08/20/24 08/20/24 15:47 Patient Tobacco Use Status Never used Tobacco 08/20/24 15:45 Thrive Assessment: Date of Thrive Assessment Date Thrive assessed 08/20/24 08/20/24 15:45 Currently or been in a relationship where the following occur: No concerns reported Coding Level of Care Code Est Pt Level 4 (11776) Complex EM visit Add On G2211 Diagnoses Hospital discharge follow-up Z09 Alcohol use disorder, severe, dependence F10.20 Low back pain M54.50 Anxiety F41.9 Additional Codes ODETTE-7 Assessment Billing - ODETTE-7 Assessment Tool: ODETTE-7 Assessment 71007 ([id number]) Assessment & Plan Assessment & Plan (1) Hospital discharge follow-up: Code(s): Z09 - Encounter for follow-up examination after completed treatment for conditions other than malignant neoplasm (2) Alcohol use disorder, severe, dependence: Code(s): F10.20 - Alcohol dependence, uncomplicated Category: Medical (3) Low back pain: Code(s): M54.50 - Low back pain, unspecified Category: Medical (4) Anxiety: Code(s): F41.9 - Anxiety disorder, unspecified Category: Medical Plan Continue naltrexone 50 mg daily. He did not need refills on this today. He has a follow up with the addiction Medicine in August. Finish supplements for electrolyte disturbances. Recheck labs. Patient feels health is much better off alcohol. He wants to maintain sobriety. He has upcoming appointments at [facility] to establish care with a therapist and psychiatrist. Increase citalopram to 20 mg daily. Side effects and black box warning reviewed. Patient instructed to call if he has any difficulty with the medication. Schedule follow up in 6 weeks for med check here unless psychiatrist has taken over prescribing by that time. Refer to physical therapy for back pain. Per daily meds Zanaflex does not contain red dye as patient has allergy. Sent 4 mg every 8 hours as needed. Cautioned this is sedating and causes drowsiness and not to drive or operate heavy machinery with this medication. Follow up in 6 weeks. Orders: Orders Magnesium Today F10.20 - Alcohol dependence, uncomplicated, R79.89 - Other specified abnormal findings of blood chemistry Comprehensive Met. Panel Today F10.20 - Alcohol dependence, uncomplicated, R79.89 - Other specified abnormal findings of blood chemistry Complete Blood Count no Diff Today F10.20 - Alcohol dependence, uncomplicated, R79.89 - Other specified abnormal findings of blood chemistry Vitamin B12 and Folate Today F10.20 - Alcohol dependence, uncomplicated, R79.89 - Other specified abnormal findings of blood chemistry PT Evaluation and Treatment Today M54.9 - Dorsalgia, unspecified Medications: New citalopram 20 mg PO DAILY 30 tabs 0RF tizanidine (Zanaflex) 4 mg PO Q8H PRN 30 caps 0RF muscle spasticity
[2024-08-20 15:48] VITALS: BP 118/72; PULSE 86; RESP 12; O2SAT 98; BMI 39.9
== END 2024-08-20 16:29 | disposition home or self-care (01) ==
PROVIDERS: PCP Family Medicine; Visit Provider Physician Assistant Medical
DX: Z09 Encounter for follow-up examination after completed treatment for conditions other than malignant neoplasm (principal); F10.20 Alcohol dependence, uncomplicated; M54.50 Low back pain, unspecified; F41.9 Anxiety disorder, unspecified

== ENCOUNTER → 2024-08-20 15:43 | Outpatient (BNVA) | payer OTHER, SELFPAY | PROVIDERS: PCP Family Medicine; Visit Provider Physician Assistant Medical | DX: Z09 Encounter for follow-up examination after completed treatment for conditions other than malignant neoplasm (principal); F10.20 Alcohol dependence, uncomplicated; M54.50 Low back pain, unspecified; F41.9 Anxiety disorder, unspecified; F14.10 Cocaine abuse, uncomplicated; F90.9 Attention-deficit hyperactivity disorder, unspecified type; G62.9 Polyneuropathy, unspecified; Z79.899 Other long term (current) drug therapy | CPT/HCPCS: 96127; 99212 ==

== ENCOUNTER 2024-09-04 11:00 | Outpatient (AMB) | payer OTHER, SELFPAY ==
--- NOTE | 2024-09-04 11:01 | A.OFFVISCC_ITS ---
Intake Visit Reasons: MAT Allergies amoxicillin Allergy (Unknown, Verified 08/20/24 15:45) hives Penicillins [PENICILLINS] Allergy (Unknown, Verified 08/20/24 15:45) ANAPHYLAXIS red dye [RED DYE] Allergy (Unknown, Verified 08/20/24 15:45) UNKNOWN shrimp [SHRIMP] Allergy (Unknown, Verified 08/20/24 15:45) UNKNOWN Sulfa (Sulfonamide Antibiotics) Allergy (Unknown, Verified 08/20/24 15:45) hives sulfamethoxazole [From BACTRIM] Allergy (Unknown, Verified 08/20/24 15:45) UNKNOWN trimethoprim [From BACTRIM] Allergy (Unknown, Verified 08/20/24 15:45) UNKNOWN Biaxin Allergy (Unknown, Uncoded 08/05/24 07:35) hives SEAFOOD Allergy (Unknown, Uncoded 08/05/24 07:35) UNKNOWN HPI HPI MAT: Details: Patient presents for AUD treatment follow up feeling positive about abstaining from alcohol mood improved with citalopram had to reschedule psychiatry appt no issues related to medication Review of Systems Const Reports as per HPI and Reports difficulty sleeping Telehealth Telehealth Telehealth Platform: Telephone Location of provider rendering services: practice address Location of patient: address on file Patient Identification confirmed using: Name, : Yes Telehealth method: voice only Patient verbally consented to treatment: Yes Patient verbally consented to billing insurance company: Yes Minutes spent on Phone/Video with Pt.: 15 [facility] Medical History (Updated 08/20/24 @ 17:14 by STEFANI Herrera) Low back pain Morbid obesity with BMI of 40.0-44.9, adult Alcohol use disorder, severe, dependence Hyperparathyroidism Vitamin D deficiency Alcohol use disorder Electrolyte imbalance Acidosis, lactic Weakness Acute hypokalemia Hypomagnesemia Alcohol abuse Obesity Hypocalcemia Anxiety ADHD Periodontitis Alcoholism Hernia Surgical History H/O gastric sleeve Social History (System 08/05/24 @ 07:35 by Luisa Hull) Household Members: Family Household Members Other:: parents, grandma and girlfriend Housing: House Do you presently have visiting nurse or other home services: No Alcohol intake: current Alcohol type: hard liquor Comment: refusing fall risk intervention. Patient Tobacco Use Status: Never used Tobacco Substance Use Type: Marijuana service: No Cognitive needs: No Hearing needs: No Vision needs: No Social History: Born in [place]. One sister, estranged, Lives in [place]. Lives with father, grandmother and girlfriend. Mom lives in [place] No children. Girlfriend has 3 children but does not have custody. 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 Substance History: Alcohol Cocaine - once weekly Trauma History: Affirms Assessment & Plan Assessment & Plan (1) Alcohol use disorder, severe, dependence: Code(s): F10.20 - Alcohol dependence, uncomplicated Category: Medical Plan: * continue naltrexone as prescribed * follow up 4 weeks * relapse prevention discussion
== END 2024-09-04 11:15 | disposition home or self-care (01) ==
PROVIDERS: Visit Provider Nurse Practitioner Psychiatric/Mental Health
DX: F10.20 Alcohol dependence, uncomplicated (principal)
CPT/HCPCS: 99213

== ENCOUNTER → 2024-09-04 11:00 | Outpatient (BNVA) | payer OTHER, SELFPAY | PROVIDERS: Visit Provider Nurse Practitioner Psychiatric/Mental Health ==

== ENCOUNTER 2024-10-02 09:24 | Outpatient (AMB) | payer OTHER, SELFPAY ==
--- NOTE | 2024-10-02 09:25 | A.OFFVISCC_ITS ---
Intake Visit Reasons: MAT Tele Allergies amoxicillin Allergy (Unknown, Verified 08/20/24 15:45) hives Penicillins [PENICILLINS] Allergy (Unknown, Verified 08/20/24 15:45) ANAPHYLAXIS red dye [RED DYE] Allergy (Unknown, Verified 08/20/24 15:45) UNKNOWN shrimp [SHRIMP] Allergy (Unknown, Verified 08/20/24 15:45) UNKNOWN Sulfa (Sulfonamide Antibiotics) Allergy (Unknown, Verified 08/20/24 15:45) hives sulfamethoxazole [From BACTRIM] Allergy (Unknown, Verified 08/20/24 15:45) UNKNOWN trimethoprim [From BACTRIM] Allergy (Unknown, Verified 08/20/24 15:45) UNKNOWN Biaxin Allergy (Unknown, Uncoded 08/05/24 07:35) hives SEAFOOD Allergy (Unknown, Uncoded 08/05/24 07:35) UNKNOWN HPI HPI MAT Tele: Details: Patient presents for AUD treatment follow up Currently prescribed Naltrexone 50mg daily Reports he recently increased Citalopram dose Concerned that he was having hallucinations because of the medicaiton Also was very sick during this time, and unsure if he was febrile Has not had another episode in 2-3 days since I started feeling better Hallucinations consisted of talking to household family members Next PCP appt 10/16 Needs to reschedule psychaitry appt Review of Systems Const Reports as per HPI and Reports no additional complaints Telehealth Telehealth Telehealth Platform: Telephone Location of provider rendering services: practice address Location of patient: address on file Patient Identification confirmed using: Name, : Yes Telehealth method: voice only Patient verbally consented to treatment: Yes Patient verbally consented to billing insurance company: Yes Minutes spent on Phone/Video with Pt.: 15 [facility] Medical History (Updated 08/20/24 @ 17:14 by STEFANI Herrera) Low back pain Morbid obesity with BMI of 40.0-44.9, adult Alcohol use disorder, severe, dependence Hyperparathyroidism Vitamin D deficiency Alcohol use disorder Electrolyte imbalance Acidosis, lactic Weakness Acute hypokalemia Hypomagnesemia Alcohol abuse Obesity Hypocalcemia Anxiety ADHD Periodontitis Alcoholism Hernia Surgical History H/O gastric sleeve Social History (System 08/05/24 @ 07:35 by Luisa Hull) Household Members: Family Household Members Other:: parents, grandma and girlfriend Housing: House Do you presently have visiting nurse or other home services: No Alcohol intake: current Alcohol type: hard liquor Comment: refusing fall risk intervention. Patient Tobacco Use Status: Never used Tobacco Substance Use Type: Marijuana service: No Cognitive needs: No Hearing needs: No Vision needs: No Social History: Born in [place]. One sister, estranged, Lives in [place]. Lives with father, grandmother and girlfriend. Mom lives in [place] No children. Girlfriend has 3 children but does not have custody. 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 Substance History: Alcohol Cocaine - once weekly Trauma History: Affirms Assessment & Plan Assessment & Plan (1) Alcohol use disorder, severe, dependence: Code(s): F10.20 - Alcohol dependence, uncomplicated Category: Medical Plan: * continue naltrexone at current dose * encouraged to reschedule with providers * advised to d/c Citalopram should he have any other hallucinations
== END 2024-10-02 10:16 | disposition home or self-care (01) ==
PROVIDERS: Visit Provider Nurse Practitioner Psychiatric/Mental Health
DX: F10.20 Alcohol dependence, uncomplicated (principal)
CPT/HCPCS: 99213

== ENCOUNTER 2024-10-16 13:59 | Outpatient (AMB) | payer OTHER, SELFPAY ==
--- NOTE | 2024-10-16 14:17 | A.OFFPC_ITS ---
Vital Signs 10/16/24 14:35 Height 5 ft 10 in Weight 259 lb 4 oz BMI 37.2 BP 110/70 Blood Pressure Location Rt brachial Position Sitting Respiration 16 Pulse 101 H Pulse Source Pulse Oximeter Temp 98.6 F Temp Source Oral Pulse Oximetry (%) 98 Oxygen Delivery Method Room Air Intake Visit Reasons: EST CARE/ANXIETY Intake Note: establish care Service Dismantler Required: No Allergies amoxicillin Allergy (Unknown, Verified 10/16/24 14:32) hives Penicillins [PENICILLINS] Allergy (Unknown, Verified 10/16/24 14:32) ANAPHYLAXIS red dye [RED DYE] Allergy (Unknown, Verified 10/16/24 14:32) UNKNOWN shrimp [SHRIMP] Allergy (Unknown, Verified 10/16/24 14:32) UNKNOWN Sulfa (Sulfonamide Antibiotics) Allergy (Unknown, Verified 10/16/24 14:32) hives sulfamethoxazole [From BACTRIM] Allergy (Unknown, Verified 10/16/24 14:32) UNKNOWN trimethoprim [From BACTRIM] Allergy (Unknown, Verified 10/16/24 14:32) UNKNOWN Biaxin Allergy (Unknown, Uncoded 08/05/24 07:35) hives SEAFOOD Allergy (Unknown, Uncoded 08/05/24 07:35) UNKNOWN Medication List - Last Reconciled 10/16/24 by Miguel Rebolledo MD cholecalciferol (vitamin D3) 50 mcg PO DAILY citalopram 20 mg PO DAILY cyanocobalamin (vitamin B-12) (Vitamin B-12) 1,000 mcg PO DAILY famotidine 40 mg PO DAILY magnesium oxide 400 mg PO DAILY multivitamin 1 tab PO DAILY naltrexone 50 mg PO DAILY thiamine HCl (vitamin B1) (Vitamin B-1) 100 mg PO DAILY tizanidine (Zanaflex) 4 mg PO Q8H PRN Tobacco use date assessed: 10/16/24 Dental Screening Dental Screen Date: 10/16/24 Did you have a dental visit in the last 12 months?: Yes Did you have a dental problem in the last 6 months where you did not have access to dental care?: Yes Was dental information given to patient?: No HPI EST CARE/ANXIETY HPI Details 28 y/o male presents for an extended exa m with f/u labs and health maintenance. No recent CPE labs to review. Had been following up with Amena Connors for alcohol use disorder. He notes naltrexone has been working well. PFSH Medical History Low back pain Morbid obesity with BMI of 40.0-44.9, adult Alcohol use disorder, severe, dependence Hyperparathyroidism Vitamin D deficiency Alcohol use disorder Electrolyte imbalance Acidosis, lactic Weakness Acute hypokalemia Hypomagnesemia Alcohol abuse Obesity Hypocalcemia Anxiety ADHD Periodontitis Alcoholism Hernia Surgical History H/O gastric sleeve Social History Household Members: Family Household Members Other:: parents, grandma and girlfriend Housing: House Do you presently have visiting nurse or other home services: No Alcohol intake: current Alcohol type: hard liquor Comment: refusing fall risk intervention. Patient Tobacco Use Status: Never used Tobacco e-Cigarette/Vaping Use: Never Used Substance Use Type: Marijuana service: No Current occupational status: unemployed Current occupational exposures/hazards: No Cognitive needs: No Hearing needs: No Vision needs: No Questionnaire PHQ-9 Over the last 2 weeks, how often have you been bothered by any of the following problems? 1. Little interest or pleasure in doing things: more than half the days 2. Feeling down, depressed, or hopeless: more than half the days 3. Trouble falling or staying asleep, or sleeping too much: more than half the days 4. Feeling tired or having little energy: more than half the days 5. Poor appetite or overeating: several days 6. Feeling bad about yourself - or that you are a failure or have let yourself or your family down: more than half the days 7. Trouble concentrating on things, such as reading the newspaper or watching television: nearly every day 8. Moving or speaking so slowly that other people could have noticed. Or the opposite - being so fidgety or restless that you have been moving around a lot more than usual: more than half the days 9. Thoughts that you would be better off or of hurting yourself in some way: not at all Total score: 16 Depression Screening Interpretation: Positive Depression Screening Done: Yes 00913 - PHQ-9 Billing: Yes Source: Developed by Drs. Bandar Kwong, Donna Romero, Kirill Bell and colleagues, with an educational ortiz from [employer]. Thrive Questionnaire Date Thrive assessed: 10/16/24 I am a: Patient What is your living situation today?: I have a steady place to live Within the past 12 months, did the food you bought not last and you didn't have the money to get more?: Never true Within the past 12 months, did you worry whether your food would run out before you got money to buy more?: Never true Do you have trouble paying for medicines?: No Do you have trouble getting transportation to medical appointments?: Yes Do you have trouble paying your heating and electricity bill?: No Do you have trouble taking care of your child, family member or friend?: No Do you have trouble with day-to-day activities such as bathing, preparing meals, shopping, managing finances, etc.?: No Are you currently unemployed and looking for a job?: Yes Are you interested in more education?: No Please select the resources that you would like help with: Job search/training Currently or been in a relationship where the following occur: No concerns reported THRIVE Score: 1 AUDIT C Alcohol Use Questionnaire (AUDIT-C) 1. How often do you have a drink containing alcohol?: 2-3 times a week 2. How many drinks containing alcohol do you have on a typical day when you are drinking?: 1 or 2 3. How often do you have six or more drinks on one occasion?: Never Total Score: 3 Score Reviewed/Action Taken: Yes ODETTE-7 AMB Questionnaire ODETTE-7 Date ODETTE - 7 assessed: 10/16/24 Feeling nervous, anxious, or on edge: 3 = Nearly every day Not being able to stop or control worryin = Nearly every day Worrying too much about different things: 3 = Nearly every day Trouble relaxin = Nearly every day Being so restless that it is hard to sit still: 3 = Nearly every day Becoming easily annoyed or irritable: 2 = More than half the days Feeling afraid as if something awful might happen: 1 = Several days Total ODETTE-7 score (0-4 normal; 5-9 mild; 10-14 moderate; 15-21 severe): 18 Source: Developed by Drs. Bandar Kwong, Kirill Bruce and colleagues, with an educational ortiz from [employer]. ODETTE-7 Assessment Billing ODETTE-7 Assessment Tool: ODETTE-7 Assessment 84363 Review of Systems Const Denies chills, Denies fatigue, Denies fever(s), Denies headache(s) and Denies weakness Eyes Denies change in vision ENT Denies dizziness, Denies headache(s), Denies hearing loss, Denies nasal congestion, Denies sinus pain, Denies sinus pressure and Denies sore throat Card Denies chest pain, Denies lightheadedness, Denies dyspnea and Denies other (palpitations) Resp Denies cough, Denies dyspnea and Denies wheezing GI Denies abdominal pain, Denies melena, Denies hematochezia, Denies change in bowel habits, Denies dyspepsia and Denies nausea Denies hematuria and Denies dysuria Musc Denies abnormal gait, Denies myalgias, Denies arthralgias, Denies numbness and Denies tingling Skin/Breast Denies rash, Denies unusual bruising and Denies wounds Neuro Denies abnormal gait, Denies dizziness, Denies headache(s), Denies memory loss, Denies numbness, Denies Sensory deficit (Neuro), Denies tingling and Denies weakness Psych Denies anxiety, Denies depression and Denies memory loss Endo Denies cold intolerance, Denies fatigue, Denies heat intolerance, Denies polydipsia and Denies polyuria Josue/Lymph Denies easy bleeding and Denies easy bruising Aller/Immun Denies wheezing Physical exam (Primary Care) Vital Signs: Last Vital Signs Temp 98.6 F 10/16/24 14:35 Pulse 101 H 10/16/24 14:35 Resp 16 10/16/24 14:35 BP 110/70 10/16/24 14:35 Pulse Ox 98 10/16/24 14:35 Oxygen Delivery Method Room Air 10/16/24 14:35 BMI result Body Mass Index 37.2 Tobacco/Smoking Status: Tobacco use Status Tobacco use date assessed 10/16/24 10/16/24 14:38 Patient Tobacco Use Status Never used Tobacco 10/16/24 14:19 e-Cigarette/Vaping Use Never Used 10/16/24 14:38 PHQ-9: PHQ-9 Score PHQ-9: Total score 16 10/16/24 14:40 Depression Screening Interpretation: Positive Thrive Assessment: Date of Thrive Assessment Date Thrive assessed 10/16/24 10/16/24 14:38 Currently or been in a relationship where the following occur: No concerns reported Const General: no acute distress, well developed, alert and awake Nutritional Appearance: well nourished Orientation/consciousness: patient oriented x3 HENMT Head: Yes normocephalic and Yes atraumatic Ears: hearing grossly normal bilaterally and TM's normal bilaterally General nose exam: Normal external nose present and Normal nares present Mouth: Normal oral and palatal mucosa present and moist mucous membranes Teeth and gingiva: dentition normal Throat: Yes posterior oropharynx normal Eyes General: appearance normal, both eyes and all related structures Pupils: Equal, round and reactive pupils present and Pupil accommodation reflex normal EOM: EOMs intact bilaterally Neck Neck: Yes normal visual inspection, Yes no lymphadenopathy and Yes trachea midline Thyroid: Thyroid normal Carotids: no bruits Lymphatic: no lymphadenopathy noted Chest Chest palpation & inspection: normal inspection of the chest Resp Effort & Inspection: normal respiratory effort Auscultation: clear to auscultation bilaterally Cardio Rate: regular rate Rhythm: regular rhythm Heart sounds: S1 normal heart sound present, S2 normal heart sound present, no gallops, no murmurs and no rubs Bruits: no abdominal aortic bruits and no carotid bruits GI Palpation (GI): No Abdominal aortic bruit present, Soft to palpation, nontender, No hepatosplenomegaly present and No Rebound tenderness present Auscultation: normal bowel sounds General: Yes no CVA tenderness Back/Spine/Pelvis Back: no CVA tenderness Cervical Spine: cervical ROM normal and No Cervical spine tenderness Thoracic/Lumbar Spine: thoraco-lumbar ROM normal, No pain with thoraco-lumbar ROM, No thoracic spinal tenderness and No lumbar spinal tenderness Skin Lesions: no lesions Rashes: no rashes Trauma: no lacerations or abrasions Wounds: no wounds Nails: normal Neuro General: patient oriented x3 Cranial nerves: Yes Equal, round and reactive pupils present Cognition (Neuro): normal cognition Gait exam (Neuro): Normal gait present Motor exam (neuro): 5/5 motor strength present throughout Sensory Exam: No Sensory deficit (Neuro) Deep tendon reflexes (DTR's): Right patellar reflex intensity grade: 2+ and Left patellar reflex intensity grade: 2+ Extrem General: Yes normal to inspection and No edema Psych Appearance: grossly normal Affect: normal affect Attitude: cooperative Thought process: Normal thought process present Coding Level of Care Code Est Pt Level 4 (74812) Diagnoses Alcohol use disorder, severe, dependence F10.20 Elevated liver enzymes R74.8 Anemia D64.9 ADHD F90.9 Adult general medical examination Z00.00 Additional Codes ODETTE-7 Assessment Billing - ODETTE-7 Assessment Tool: ODETTE-7 Assessment 03093 ([id number]) PHQ-9 - 34018 - PHQ-9 Billing: Yes ([id number]) Assessment & Plan Assessment & Plan (1) Alcohol use disorder, severe, dependence: Code(s): F10.20 - Alcohol dependence, uncomplicated Category: Medical Plan: Patient?[facility] Doing?well?with?naltrexone Continue?current?medication?and?follow-up?with Amena?Waylon?as?recommended (2) Elevated liver enzymes: Code(s): R74.8 - Abnormal levels of other serum enzymes Category: Medical Plan: Liver?enzymes?have?been?quite?high?though?are?decreasing Remain?abstinent?of?alcohol Hydrate?well Work?on?weight?loss Will?continue?to?monitor (3) Anemia: Code(s): D64.9 - Anemia, unspecified Category: Medical Plan: Likely?secondary?to?dry?suppression?from?alcohol?but?patient?has?been?taking?nal trexone?in?working?on?abstinence Recheck?CBC (4) ADHD: Code(s): F90.9 - Attention-deficit hyperactivity disorder, unspecified type Category: Medical Plan: A?we?records?from?prior?PCP Will?try?Strattera (5) Adult general medical examination: Code(s): Z00.00 - Encounter for general adult medical examination without abnormal findings Category: Medical Plan: 28-year-old?male?presents?for?an?extended?exam Encouraged?healthy?diet?with?active?lifestyle?and?plenty?of?exercise.??Encourage d?resistance?exercise Encouraged?good?sources?of?protein Medications: New atomoxetine (Strattera) 40 mg (4 x 10 mg) PO QAM 30 days 120 caps 0RF Changed From famotidine 40 mg PO DAILY 90 tabs 0RF To famotidine 40 mg PO DAILY 90 days 90 tabs 3RF
[2024-10-16 14:35] VITALS: BP 110/70; PULSE 101; RESP 16; TEMP 37; O2SAT 98; BMI 37.2
== END 2024-10-16 15:12 | disposition home or self-care (01) ==
PROVIDERS: PCP Family Medicine; Visit Provider Family Medicine
DX: F10.20 Alcohol dependence, uncomplicated (principal); R74.8 Abnormal levels of other serum enzymes; D64.9 Anemia, unspecified; F90.9 Attention-deficit hyperactivity disorder, unspecified type; Z00.00 Encounter for general adult medical examination without abnormal findings

== ENCOUNTER → 2024-10-16 13:59 | Outpatient (BNVA) | payer OTHER, SELFPAY | PROVIDERS: PCP Family Medicine; Visit Provider Family Medicine | DX: F10.20 Alcohol dependence, uncomplicated (principal); R74.8 Abnormal levels of other serum enzymes; D64.9 Anemia, unspecified; F90.9 Attention-deficit hyperactivity disorder, unspecified type | CPT/HCPCS: 96127; 99212 ==

== ENCOUNTER 2024-11-04 14:31 | Outpatient (AMB) | payer OTHER, SELFPAY ==
--- NOTE | 2024-11-04 14:35 | A.OFFVISCC_ITS ---
Intake Visit Reasons: MAT Office Allergies amoxicillin Allergy (Unknown, Verified 10/16/24 14:32) hives Penicillins [PENICILLINS] Allergy (Unknown, Verified 10/16/24 14:32) ANAPHYLAXIS red dye [RED DYE] Allergy (Unknown, Verified 10/16/24 14:32) UNKNOWN shrimp [SHRIMP] Allergy (Unknown, Verified 10/16/24 14:32) UNKNOWN Sulfa (Sulfonamide Antibiotics) Allergy (Unknown, Verified 10/16/24 14:32) hives sulfamethoxazole [From BACTRIM] Allergy (Unknown, Verified 10/16/24 14:32) UNKNOWN trimethoprim [From BACTRIM] Allergy (Unknown, Verified 10/16/24 14:32) UNKNOWN Biaxin Allergy (Unknown, Uncoded 08/05/24 07:35) hives SEAFOOD Allergy (Unknown, Uncoded 08/05/24 07:35) UNKNOWN HPI HPI MAT Office: Details: Patient presents for AUD treatment follow up Currently prescribed Naltrexone 50mg daily--tolerating current dose Discussed taking 2 tabs daily if needed for cravings Reporting sleep has been poor recently--insomnia has been a chronic issue for him Appetite has been poor--using edibles to help stimulate appetite motivation has been low, feels lethargic, I feel hungover, but I'm not Has PCP appt at the end of October--will complete lab work before then Reports cocaine use on the weekends Finds that he is decreasing this as well since he is no longer drinking [facility] Medical History Low back pain Morbid obesity with BMI of 40.0-44.9, adult Alcohol use disorder, severe, dependence Hyperparathyroidism Vitamin D deficiency Alcohol use disorder Electrolyte imbalance Acidosis, lactic Weakness Acute hypokalemia Hypomagnesemia Alcohol abuse Obesity Hypocalcemia Anxiety ADHD Periodontitis Alcoholism Hernia Surgical History H/O gastric sleeve Social History Household Members: Family Household Members Other:: parents, grandma and girlfriend Housing: House Do you presently have visiting nurse or other home services: No Alcohol intake: current Alcohol type: hard liquor Comment: refusing fall risk intervention. Patient Tobacco Use Status: Never used Tobacco e-Cigarette/Vaping Use: Never Used Substance Use Type: Marijuana service: No Current occupational status: unemployed Current occupational exposures/hazards: No Cognitive needs: No Hearing needs: No Vision needs: No Social History: Born in [place]. One sister, estranged, Lives in [place]. Lives with father, grandmother and girlfriend. Mom lives in [place] No children. Girlfriend has 3 children but does not have custody. 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 Substance History: Alcohol Cocaine - once weekly Trauma History: Affirms Assessment & Plan Assessment & Plan (1) Alcohol use disorder, severe, dependence: Code(s): F10.20 - Alcohol dependence, uncomplicated Category: Medical Plan: * continue naltrexone --may take 2 daily as needed * provided information on peer recovery centers * risk reduction discussion related to weekend cocaine use Medications: Refilled naltrexone 50 mg PO DAILY 90 tabs 0RF
== END 2024-11-04 14:58 | disposition home or self-care (01) ==
LOC: HO.HCC 14:32
PROVIDERS: Visit Provider Nurse Practitioner Psychiatric/Mental Health
DX: F10.20 Alcohol dependence, uncomplicated (principal)
CPT/HCPCS: 99214

== ENCOUNTER → 2024-11-04 14:31 | Outpatient (BNVA) | payer OTHER, SELFPAY | PROVIDERS: Visit Provider Nurse Practitioner Psychiatric/Mental Health | DX: F10.20 Alcohol dependence, uncomplicated (principal) | CPT/HCPCS: 99212 ==

== ENCOUNTER 2024-12-15 15:55 | Outpatient (REF) | payer OTHER, SELFPAY ==
[2024-12-15 16:12] LABS: MANUAL DIFF FLAG NO
[2024-12-15 17:08] LABS: Basophils Percent Auto 0.5 % (0-2); Hemoglobin 14.2 g/dl (14.0-18.0); Imm Gran Abs Auto 0.01 X10*3/uL (0.00-0.03); Imm Gran Pct Auto 0.3 % (0.0-0.4); Lymphocytes Absolute Auto 0.7 X10*3/uL (1.2-4.9); Lymphocytes Percent Auto 17.4 % (20-40); Mean Corpuscular HGB Conc 33.8 g/dl (31.0-36.0); Mean Corpuscular Hemoglobin 29.4 pg (27.0-33.0); Mean Platelet Volume 10.8 fL (9.4-12.4); Monocytes Absolute Auto 0.4 X10*3/uL (0.1-1.2); Monocytes Percent Auto 10.3 % (2-11); Neutrophils Absolute Auto 2.8 x10*3/uL (2.0-8.3); Neutrophils Percent Auto 70.5 % (45-73); Platelet Count 115 X10*3/uL (160-400); Red Blood Count 4.83 X10*6/uL (4.60-5.80); Red Cell Distribution Width 17.2 % (11.0-16.0)
[2024-12-15 17:16] LABS: Appearance Urine Cloudy; Color Urine Dark Yellow; Glucose Urine UA Negative (Negative); Leukocyte Esterase Urine Small (1+) (Negative); Nitrite Urine Positive (Negative); Specific Gravity - Urine 1.025 (1.005-1.025); UMIC TRIGGER UA YES; Urine Blood Negative (Negative); Urine Ketones Trace mg/dL (Negative); Urine Protein 30 (1+) mg/dL (Neg-Trace)
[2024-12-15 17:33] LABS: Bacteria Urine None Seen (None Seen); RBC Urine 0-2 /HPF (0-2); WBC Urine 0-5 /HPF (0-5)
[2024-12-15 18:02] LABS: Folate 4.5 ng/mL (> or = 4.0); Vitamin B12 475 pg/mL (200-900)
[2024-12-15 18:53] LABS: Creatinine Urine 348.24 mg/dL; Microalbum/Creatinine Ratio Ur 16.9 ug/mg cr (<30)
[2024-12-15 19:43] LABS: Alanine Aminotransferase 127 U/L (0-40); Albumin Level 3.5 g/dL (3.5-5.0); Aspartate Amino Transferase 410 U/L (5-37); Bilirubin Direct 0.8 mg/dL (0.0-0.5); Bilirubin Total 1.6 mg/dL (0.0-1.0); Total Protein 6.6 g/dL (6.5-8.0)
[2024-12-15 20:02] LABS: Alkaline Phosphatase 242 U/L (39-117)
[2024-12-15 20:39] LABS: Alanine Aminotransferase 128 U/L (0-40); Albumin Level 3.5 g/dL (3.5-5.0); Alkaline Phosphatase 246 U/L (39-117); Anion Gap 16 (12-20); Aspartate Amino Transferase 413 U/L (5-37); Bilirubin Total 1.6 mg/dL (0.0-1.0); Blood Urea Nitrogen 4 mg/dL (9-16); Calcium 8.5 mg/dL (8.4-10.2); Carbon Dioxide 28 mmol/L (22-29); Chloride 98 mmol/L (96-108); Estimated Glomerular Filt Rate > 60; Glucose Random 97 mg/dL (60-115); Magnesium 0.9 mg/dL (1.6-2.6); Potassium 3.4 mmol/L (3.3-5.1); Sodium 139 mmol/L (135-145); Total Protein 6.7 g/dL (6.5-8.0)
== END 2024-12-15 15:56 | disposition home or self-care (01) ==
LOC: HO.LAB 15:55
PROVIDERS: Physician Assistant Medical; Student in an Organized Health Care Education/Training Program; PCP Family Medicine; Visit Provider Family Medicine
DX: Z00.00 Encounter for general adult medical examination without abnormal findings (principal); R74.8 Abnormal levels of other serum enzymes; I10 Essential (primary) hypertension; F10.20 Alcohol dependence, uncomplicated; R79.89 Other specified abnormal findings of blood chemistry
CPT/HCPCS: 36415; 80053; 80076; 81001; 82043; 82248; 82570; 82607; 82746; 83735; 84443; 85025; 85027

== ENCOUNTER 2024-12-18 14:32 | Outpatient (AMB) | payer OTHER, SELFPAY ==
[2024-12-18 15:04] VITALS: BP 126/72; PULSE 97; O2SAT 99; BMI 36.3
--- NOTE | 2024-12-18 15:04 | A.OFFVIS_ITS ---
Vital Signs 12/18/24 15:04 Height 5 ft 10 in Weight 253 lb BMI 36.3 BP 126/72 Pulse 97 Pulse Oximetry (%) 99 Intake Visit Reasons: MAT Allergies amoxicillin Allergy (Unknown, Verified 10/16/24 14:32) hives Penicillins [PENICILLINS] Allergy (Unknown, Verified 10/16/24 14:32) ANAPHYLAXIS red dye [RED DYE] Allergy (Unknown, Verified 10/16/24 14:32) UNKNOWN shrimp [SHRIMP] Allergy (Unknown, Verified 10/16/24 14:32) UNKNOWN Sulfa (Sulfonamide Antibiotics) Allergy (Unknown, Verified 10/16/24 14:32) hives sulfamethoxazole [From BACTRIM] Allergy (Unknown, Verified 10/16/24 14:32) UNKNOWN trimethoprim [From BACTRIM] Allergy (Unknown, Verified 10/16/24 14:32) UNKNOWN Biaxin Allergy (Unknown, Uncoded 08/05/24 07:35) hives SEAFOOD Allergy (Unknown, Uncoded 08/05/24 07:35) UNKNOWN HPI HPI MAT: Details: He is doing well on Naltrexone 50 mg daily. He drank last weekend vodka and doesnt drink during week. His girlfriend works at [employer] and is attending AA and I told patient he should attend AA as well. He is taking vitamin B6 and folic acid also. [facility] Medical History Hypomagnesemia Low back pain Morbid obesity with BMI of 40.0-44.9, adult Alcohol use disorder, severe, dependence Hyperparathyroidism Vitamin D deficiency Alcohol use disorder Electrolyte imbalance Acidosis, lactic Weakness Acute hypokalemia Alcohol abuse Obesity Hypocalcemia Anxiety ADHD Periodontitis Alcoholism Hernia Surgical History H/O gastric sleeve Social History Household Members: Family Household Members Other:: parents, grandma and girlfriend Housing: House Do you presently have visiting nurse or other home services: No Alcohol intake: current Alcohol type: hard liquor Comment: refusing fall risk intervention. Patient Tobacco Use Status: Never used Tobacco e-Cigarette/Vaping Use: Never Used Substance Use Type: Marijuana service: No Current occupational status: unemployed Current occupational exposures/hazards: No Cognitive needs: No Hearing needs: No Vision needs: No Review of Systems Const All systems reviewed & are unremarkable except as noted in HPI and below Physical Exam Vital Signs: Last Vital Signs Pulse 97 12/18/24 15:04 BP 126/72 12/18/24 15:04 Pulse Ox 99 12/18/24 15:04 BMI result Body Mass Index 36.3 Const General: cooperative Assessment & Plan Assessment & Plan (1) Alcohol use disorder, severe, dependence: Comment: He is doing well He is drinking only on weekends now Code(s): F10.20 - Alcohol dependence, uncomplicated Category: Medical Plan: Would continue Naltrexone 50 mg daily and start acamprosate 333 bid. See in two to three months. (2) Neuropathy: Code(s): G62.9 - Polyneuropathy, unspecified Category: Medical Plan: na (3) Weakness of both hands: Code(s): R29.898 - Other symptoms and signs involving the musculoskeletal system Category: Medical Plan: na (4) Numbness of upper extremity: Code(s): R20.0 - Anesthesia of skin Category: Medical Plan: na Medications: New naltrexone 50 mg PO DAILY 30 tabs 2RF 30 days acamprosate administer with mid-day and evening meals 333 mg PO BID 120 tabs 2RF 60 days Coding Level of Care Code Est Pt Level 3 (64626) Diagnoses Alcohol use disorder, severe, dependence F10.20 Neuropathy G62.9 Weakness of both hands R29.898 Numbness of upper extremity R20.0
== END 2024-12-18 15:55 | disposition home or self-care (01) ==
LOC: HO.HCC 14:33
PROVIDERS: Visit Provider Internal Medicine
DX: F10.20 Alcohol dependence, uncomplicated (principal); G62.9 Polyneuropathy, unspecified; R29.898 Other symptoms and signs involving the musculoskeletal system; R20.0 Anesthesia of skin
CPT/HCPCS: 99213

== ENCOUNTER → 2024-12-18 14:32 | Outpatient (BNVA) | payer OTHER, SELFPAY | PROVIDERS: Visit Provider Internal Medicine | DX: F10.20 Alcohol dependence, uncomplicated (principal); G62.9 Polyneuropathy, unspecified; R29.898 Other symptoms and signs involving the musculoskeletal system; R20.0 Anesthesia of skin; Z51.81 Encounter for therapeutic drug level monitoring; Z79.899 Other long term (current) drug therapy | CPT/HCPCS: 99212 ==

== ENCOUNTER 2025-01-26 16:19 | Outpatient (REF) | payer OTHER, SELFPAY ==
[2025-01-26 17:45] LABS: Magnesium 1.5 mg/dL (1.6-2.6)
== END 2025-01-26 16:20 | disposition home or self-care (01) ==
LOC: HO.LAB 16:19
PROVIDERS: PCP Family Medicine; Visit Provider Physician Assistant Medical
DX: E83.42 Hypomagnesemia (principal)
CPT/HCPCS: 36415; 83735

== ENCOUNTER 2025-05-22 06:19 | Inpatient (IN) | payer OTHER, SELFPAY ==
[2025-05-22] VITALS (7 sets, daily range): BP systolic 131–157; BP diastolic 74–97; PULSE 102–138; RESP 14–20; TEMP 36.4–37.2; O2SAT 93–98; BMI 40.2; BMI 35.3
--- NOTE | 2025-05-22 | ECG_ITS ---
Test Reason : N/V/ABD PAIN Blood Pressure : */* mmHG Vent. Rate : 115 BPM Atrial Rate : 115 BPM P-R Int : 122 ms QRS Dur : 82 ms QT Int : 338 ms P-R-T Axes : 23 14 -10 degrees QTcB Int : 467 ms Sinus tachycardia Possible Anterolateral infarct (cited on or before 04-Aug-2024) Abnormal ECG When compared with ECG of 04-Aug-2024 21:05, Nonspecific T wave abnormality no longer evident in Anterior leads Referred By: Generic ED Physician Electronically Signed By: Hu Blackburn
--- NOTE | ~2025-05-22 | US_ITS ---
EXAMINATION: US GUIDED PARACENTESIS CLINICAL INFORMATION: Ascites. Alcoholic hepatitis. COMPARISON: None available. TECHNIQUE: Following explaining ultrasound-guided paracentesis procedure, benefits and risk, a written consent was obtained. Patient was placed supine on fluoroscopy table and preliminary ultrasound imaging was obtained through the abdomen. An optimal site was selected along the left lower quadrant and marked. The marked site was cleaned and draped in usual sterile manner. 1% lidocaine was injected puncture site. Through a small skin incision a 5 Frisian short Yueh catheter was advanced from the skin intraperitoneally. After obtaining fluid return, stylet was withdrawn and catheter connected to vacuum bottle via connecting cannula. After obtaining all fluid and observing normal fluid return, catheter was withdrawn and complete hemostasis achieved at puncture site. Sterile dressing applied post procedure. Patient tolerated procedure extremely well. FINDINGS: On preliminary ultrasound imaging there is small to moderate amount of ascites fluid seen. Approximately 2.4 L of clear yellowish fluid was drained from left lower quadrant. Part of this fluid was sent to lab as requested by the referring physician. US/US paracentesis abd w/image IMPRESSION: Successful ultrasound-guided diagnostic paracentesis performed without immediate complications. Electronically signed by: Lb Velasco MD 05/24/2025 03:55 PM EDT
--- NOTE | ~2025-05-22 | XR_ITS ---
CLINICAL HISTORY: tachycardia Single view of the chest. COMPARISON: None provided. FINDINGS: Low lung volumes. Normal heart size. Crowding of the bronchovascular markings, likely exaggerated secondary to low lung volumes. No focal consolidation. Calcified granuloma along the left lung base. No pleural effusion or pneumothorax. No acute fracture. IMPRESSION: 1. Low lung volumes with associated crowding of the bronchovascular markings. No consolidation. This document has been electronically signed by: Yoni Velásquez MD on 05/22/2025 14:55:09
--- NOTE | ~2025-05-22 | NM_ITS ---
CLINICAL HISTORY: Gallstones, ascites, ruq abdominal pain NM HIDA Scan Comparison: None provided Technique: Gallstones, ascites, ruq abdominal pain (Hx) / Dynamic 60-120 MIN (DICOM Hx) (DICOM Hx) Findings: Relatively normal hepatic uptake with abnormal excretion/clearing suggestive of hepatic dysfunction. Gallbladder appears 25 minutes. Central bile ducts appear at 30 minutes. Duodenum visualized at 30 minutes. IMPRESSION: The gallbladder is visualized arguing against acute cholecystitis. Hepatic uptake retention consistent with hepatic dysfunction. This document has been electronically signed by: Matthew Chauhan MD on 05/23/2025 12:09:55
--- NOTE | ~2025-05-22 | CT_ITS ---
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 The liver is enlarged and cirrhotic appearing. The gallbladder is distended and contains stones in the region of the neck. Moderate volume ascites, new from prior. The kidneys, spleen and adrenal glands appear stable. The pancreas enhances expectedly. There is peripancreatic stranding, nonspecific given presence of ascites. No bowel obstruction or free air. No acute osseous finding. Small hiatal hernia. Postsurgical changes along the greater curvature of the stomach. Impression: Cirrhotic appearing liver with new moderate volume ascites. Distended gallbladder with stones in the region of the gallbladder neck. No definite gallbladder wall thickening. Stranding about the pancreas, nonspecific, given diffuse ascites. Pancreatitis unable to be excluded. This document has been electronically signed by: Matthew Chauhan MD on 05/22/2025 09:12:03
--- NOTE | ~2025-05-22 | US_ITS ---
CLINICAL HISTORY: alcoholic hepatitis US abdomen complete Comparison: CT/REG/SR - CT ABDOMEN PELVIS W IV CON - 05/22/25 08:05 EDT Findings: The visualized pancreas is normal. The aorta and inferior vena cava are normal caliber. The liver is enlarged and heterogeneous. There is no intrahepatic bile duct dilatation. The common duct is 8.0 mm in diameter. The gallbladder is demonstrates stones and sludge including an impacted appearing stone within the gallbladder neck measuring up to 16 mm. Reportedly there is a positive sonographic Gold's. Portal venous flow is retrograde. The right kidney is 10.5 cm in length. The left kidney is 10.2 cm in length. The spleen is normal. [id number] volume of ascites. IMPRESSION: The liver is enlarged and heterogeneous, likely cirrhotic with evidence of reversal of flow within the main portal vein. Gallstones within the gallbladder with a reported positive sonographic Gold's. Cholecystitis not excludable. The gallbladder wall thickening is nonspecific and can be explained by the presence of cirrhosis and ascites. [id number] volume ascites. This document has been electronically signed by: Matthew Chauhan MD on 05/23/2025 09:17:52
--- OUTSIDE RECORDS SUMMARY | 2025-05-22 06:36 | XMS_ITS | Clinical Summary ---
Author Organization [facility] Address [address] [address] Phone Care Team Providers Care Granite Setter Name Role Phone Unknown, Unknown Primary Care Provider Con estrada Allergies Active Allergy Reactions Criticality Noted Date Comments Amoxicillin Hives 08/02/2017 Sulfamethoxazole-Trimethoprim Hives 2016 Clarithromycin Hives 08/02/2017 Red Dye Hives High Shrimp Swelling High Medications OYSTER SHELL CALCIUM 500 500 mg calcium (1,250 mg) tablet Take 2 tablets by mouth 2 (two) times a day. 08/27/2023 Active cholecalciferol (VITAMIN D3) 25 MCG (1,000 unit) tablet Take 2 tablets by mouth every morning. 08/27/2023 Active folic acid (FOLVITE) 1 MG tablet Take 1 tablet by mouth daily. 08/27/2023 Active VITAMIN B-1, MONONITRATE, 100 mg Tab tablet Take 1 tablet by mouth daily. 08/27/2023 Active omeprazole (PRILOSEC) 20 MG capsule TAKE 1 CAPSULE(20 MG) BY MOUTH DAILY 90 capsule 3 09/10/2023 Active Active Problems Problem Noted Date Diagnosed Date Alcohol abuse 09/06/2023 Heartburn 09/22/2019 Cellulitis of left elbow 07/04/2018 Attention deficit disorder (ADD) without hyperac tivity 08/02/2017 Anxiety 08/02/2017 History of bariatric surgery 08/02/2017 Hypertriglyceridemia 08/02/2017 Intertriginous dermatitis associated with moistu re 08/02/2017 Mood disorder 08/02/2017 Psychophysiological insomnia 08/02/2017 Mild oppositional defiant disorder 08/02/2017 Resolved Problems Problem Noted Date Diagnosed Date Resolved Date Acute upper respiratory infection 11/23/2019 12/03/2019 Assessment & Plan (11/23/2019 3:58 PM EDT): This visit was more about questions whether he should stay at home or whether he may return to work. Patient having a fever 2 days ago that potentially could be CO VID 19 in its beginning phase or could be a upper respiratory virus. Either way the recommendation is 14 days of quarantine since onset of symptoms so we will write a letter to clear him from work for the next 14 days. Social distancing from his girlfriend who also lives with him and is healthy, spoke about drinking plenty of fluids and consider zinc lozenges. Vitamin C intake. Mainly his concern was about work and questions about how long the quarantine should be. Patient did not require to go to the [facility]. No antibiotics necessary. This virtual telephone visit was completed from the patient's home/residence, and from the author's clinic/home office. A virtual visit was used during the COVID- [address] of an in-person visit. Consent for virtual care, including informing the patient that insurance will be billed, was discussed at the time of scheduling. I personally spent 20 minutes with the patient during this real-time interactive virtual clinical encounter, which was conducted using telephone-only technology, and >50% of which was devoted to counseling and coordinating care for the above issues. Gastroesophageal reflux dise ase without esophagitis 08/02/2017 08/02/2017 Immunizations Immunization Administration Dates Next Due Tdap 01/20/2020,11/03/2012 Family History Medical History Relation Comments Hyperlipidemia Father Cancer Maternal Grandfather Breast cancer Maternal Grandmother Anxiety disorder Mother Bipolar disorder Mother Pancreatic cancer Paternal Grandfather No Known Problems Sister Relation Status Comments Father Maternal Grandfather Maternal Grandmother Mother Paternal Grandfather Sister Alive Social History Tobacco Use Types Packs/Day Years Used Date Smoking Tobacco: Never Smokeless Tobacco: Never Tobacco Cessation:Counseling Given: Not Answered Alcohol Use Standard Drinks/Week Comments Not Currently 0 (1 standard drink = 0.6 oz pur e alcohol) none now, was 1L daily Education Answer Date Recorded Are you interested in more education? Not on jack e 12/21/2022 Are you concerned about learning? Not on file 12/21/2022 No 12/21/2022 No 12/21/2022 Digital Access Answer Date Recorded No 01/21/2023 No 01/21/2023 Reliable internet access at home? Not on file 01/21/2023 Device with a working camera? Not on file Sex and Gender Information Value Date Recorded Sex Assigned at Not on file Legal Sex Male 8:53 PM EDT Gender Identity Not on file Sexual Orientation Not on file Last Filed Vital Signs Vital Sign Reading Time Taken Comments Blood Pressure 122/84 09/06/2023 2:59 PM EST Pulse 121 09/06/2023 2:59 PM EST Temperature 36.1 C (96.9 F) 12/03/2019 1:35 PM EDT patient reported Respiratory Rate 16 09/06/2023 2:59 PM EST Oxygen Saturation 95% 09/06/2023 2:5 9 PM EST Inhaled Oxygen Concentration - - Weight 149.5 kg (329 lb 9.6 oz) 09/06/2023 2:59 PM EST Height 177.8 cm (5' 10 ) 09/06/2023 2:5 9 PM EST Body Mass Index 47.29 09/06/2023 2:59 PM EST Plan of Treatment Health Maintenance Due Date Last Done Comments DEPRESSION SCREENING 09/06/2024 09/06/2023 INFLUENZA VACCINE (#1) 2025 COVID-19 VACCINE ( - 2023-2 5 season) 2025 Adult Td,Tdap Booster 01/19/2030 01/20/2020 , 11/03/2012 HEPATITIS C SCREENING Completed 04/04/2018 HIV ONE-TIME SCREENING (18-6 5 YEARS) Completed 04/04/2018 SMOKING STATUS SCREENING (On ce After 26 Yrs) Completed 09/06/2023 HEPATITIS A VACCINES Aged Out No long er eligible based on patient's age to complete this topic HIB VACCINES Aged Out No longer eligi ble based on patient's age to complete this topic MENINGOCOCCAL VACCINES (ACWY) Aged Out No longer eligible based on patient's age to complete this topic MENINGOCOCCAL VACCINES (B) Aged Out N o longer eligible based on patient's age to complete this topic PNEUMOCOCCAL VACCINES (0-49 years) Aged Out No longer eligible b ased on patient's age to complete this topic Medical Devices Not on file Procedures Procedure Name Priority Date/Time Associated Diagnosis Comments HEPATITIS C ANTIBODY, QUALITATIVE Routine 04/04/2018 12:26 PM EDT Screening examination for STD (sexually transmitted disease) from Last 3 Months or Most Recently Relevant to Health Maintenance Results * Hepatitis C antibody, qualitative (04/04/2018 12:26 PM EDT) HCV Negative Negative [facility] Comment: This is a screening test and should be confirmed with molecular testing Blood 04/04/2018 12:2 6 PM EDT 04/04/2018 8:09 PM EDT us Annalee Licona NP LAB BLOOD ORDERABLES Final Resu lt [facility] [address] [place] [address] from Last 3 Months or Most Recently Relevant to Health Maintenance Insurance [facility] C3 ACO [facility] [address] [place] [address] [place] [address] C3 ACO [facility] C3 ACO Care Teams Granite Setter Relationship Specialty Start Date End Date Unknown, Unknown, PCP - General 11/20/23 Additional Source Comments The information contained in this document represents components of the legal health record. It is not the complete legal health record.[facility]
[2025-05-22 06:49] LABS: Glucose, Whole Blood 97 mg/dL (60-115); Hematocrit 31.4 % (42.0-52.0); Hemoglobin 11.4 g/dl (14.0-18.0); Imm Gran Abs Auto 0.12 X10*3/uL (0.00-0.03); Imm Gran Pct Auto 0.9 % (0.0-0.4); Lymphocytes Absolute Auto 2.6 X10*3/uL (1.2-4.9); MANUAL DIFF FLAG NO; Mean Corpuscular HGB Conc 36.3 g/dl (31.0-36.0); Mean Corpuscular Hemoglobin 34.2 pg (27.0-33.0); Mean Corpuscular Volume 94.3 fL (80.0-98.0); NRBC Abs Auto 0.040 X10*3/uL (0.0-0.012); NRBC Pct Auto 0.3 /100WBC (0.0-0.2); Platelet Count 228 X10*3/uL (160-400); Red Blood Count 3.33 X10*6/uL (4.60-5.80); White Blood Count 13.9 X10*3/uL (4.8-10.8)
--- NOTE | 2025-05-22 06:50 | ED.ABDPAIN ---
HPI - Abdominal Pain General Chief Complaint: Abdominal Pain Stated Complaint: lower abd pain Time Seen by Provider: 05/22/25 06:46 Source: patient Limitations: no limitations History of Present Illness ED Provider: Dr. Honorio Francisco HPI narrative: 29-year-old man with a history of alcohol use disorder, vitamin-D deficiency, hyperparathyroidism, alcohol withdrawal seizure, gastric sleeve surgery at [facility] 10 years prior, penectomy who presented to the emergency department for evaluation of lower abdominal pain x2 days and a 20 lb weight loss for 2 weeks. The patient states that he stopped drinking alcohol 2 weeks prior. He states that 2 days prior he had a gradual onset of lower abdominal pain which is gotten progressively worse. He describes the pain is a constant, pressure-like pain and he points to his lower abdomen when asked to localize the pain. He states the pain is 10/10. He also states that he feels like his abdomen is distended and he has gained 20 lb. Patient did notice a change in the color of his urine. States his urine became very dark and orange. On presentation the patient has obvious jaundice. Related Data Home Medications ?Medication ?Instructions ?Recorded ?Confirmed cholecalciferol (vitamin D3) 50 50 mcg PO DAILY 08/05/24 05/22/25 mcg (2,000 unit) capsule cyanocobalamin (vitamin B-12) 1,000 mcg PO DAILY 08/05/24 05/22/25 1,000 mcg tablet (Vitamin B-12) multivitamin 1 tab PO DAILY 08/05/24 05/22/25 thiamine HCl (vitamin B1) 100 mg 100 mg PO DAILY 08/05/24 05/22/25 tablet (Vitamin B-1) atomoxetine 10 mg capsule 40 mg PO DAILY 05/22/25 05/22/25 ibuprofen 200 mg tablet 400 mg PO Q8H PRN Pain (Scale 05/22/25 05/22/25 Score 4-6) Previous Rx's ?Medication ?Instructions ?Recorded acamprosate 333 mg tablet,delayed 333 mg PO BID 60 days #120 tabs 12/18/24 release naltrexone 50 mg tablet 50 mg PO DAILY 30 days #30 tabs 12/18/24 magnesium oxide 400 mg (241.3 mg 400 mg PO DAILY 30 days #30 tabs 01/03/25 magnesium) tablet citalopram 20 mg tablet 20 mg PO DAILY 30 days #30 tabs 03/29/25 famotidine 40 mg tablet 40 mg PO DAILY 90 days #90 tabs 03/29/25 Allergies Allergy/AdvReac Type Severity Reaction Status Date / Time amoxicillin Allergy Unknown hives Verified 05/22/25 06:23 Penicillins (PENICILLINS) Allergy Unknown ANAPHYLAXIS Verified 05/22/25 06:23 red dye (RED DYE) Allergy Unknown UNKNOWN Verified 05/22/25 06:23 shrimp (SHRIMP) Allergy Unknown UNKNOWN Verified 05/22/25 06:23 Sulfa (Sulfonamide Allergy Unknown hives Verified 05/22/25 06:23 Antibiotics) sulfamethoxazole (From Allergy Unknown UNKNOWN Verified 05/22/25 06:23 BACTRIM) trimethoprim (From BACTRIM) Allergy Unknown UNKNOWN Verified 05/22/25 06:23 Biaxin Allergy Unknown hives Uncoded 05/22/25 06:23 SEAFOOD Allergy Unknown UNKNOWN Uncoded 05/22/25 06:23 Review of Systems Review of Systems Yes all other systems are reviewed and are negative PMFSH Past Medical History [facility] Narrative: Social history: The patient denies tobacco use. He states that he smokes marijuana every other day. Patient states that he stopped drinking 2 weeks prior but he seemed evasive regarding his alcohol comsumption much he was drinking at that time. Medical History Low back pain Morbid obesity with BMI of 40.0-44.9, adult Hyperparathyroidism Vitamin D deficiency Alcohol use disorder Weakness Anxiety ADHD Periodontitis Alcoholism Hernia Surgical History H/O gastric sleeve Social History Social History Household Members: Family Household Members Other:: Father, grandma and girlfriend Housing: House Do you presently have visiting nurse or other home services: No Alcohol intake: current Alcohol type: hard liquor Comment: A handle of vodka a day Patient Tobacco Use Status: Never used Tobacco e-Cigarette/Vaping Use: Never Used Substance Use Type: Marijuana service: No Current occupational status: unemployed Current occupational exposures/hazards: No Cognitive needs: No Hearing needs: No Vision needs: No Physical Exam ED Vital Signs: Vital Signs - 24 hr 05/22/25 06:21 05/22/25 08:22 Temperature 98.3 F 98.3 F Pulse Rate 138 H 105 H Respiratory Rate 20 20 Blood Pressure 131/90 H 134/84 Pulse Oximetry 98 94 Oxygen Delivery Method Room Air Room Air BMI result Body Mass Index 40.2 Vital signs revealed an elevated heart rate of 138 and an elevated blood pressure of 131/90 Exam: General: Awake, in moderate distress secondary to abdominal pain, obvious jaundice Head: Normocephalic, atraumatic EENT: PERRL, sclera and conjunctiva are normal, mouth with no erythema or exudates Neck: Supple, no adenopathy Lung: breath sounds symmetric, no wheezing, no rales and no rhonchi Chest: symmetric movement, nontender Heart: regular rate and rhythm, normal S1, S2 no murmurs or rubs Abdomen: soft, moderate diffuse tenderness, moderate to severe right upper quadrant tenderness, moderate lower abdominal tenderness, no rebound, obese and distended, normal bowel sounds Back: no vertebral tenderness, no CVAT Extremities: no deformities, moves all extremities symmetrically, no edema Neuro: Awake, alert, oriented, normal speech, cranial nerves 2-12 intact, moves all extremities symmetrically Psych: Pleasant, cooperative Medical Decision Making Medical Decision Making MDM Narrative: 29-year-old man with a history of alcohol use disorder, vitamin-D deficiency, hyperparathyroidism, alcohol withdrawal seizure, gastric sleeve surgery at [facility] 10 years prior, penectomy who presented to the emergency department for evaluation of lower abdominal pain x2 days and a 20 lb weight loss for 2 weeks. The patient states that he stopped drinking alcohol 2 weeks prior. He states that 2 days prior he had a gradual onset of lower abdominal pain which is gotten progressively worse. He describes the pain is a constant, pressure-like pain and he points to his lower abdomen when asked to localize the pain. He states the pain is 10/10. He also states that he feels like his abdomen is distended and he has gained 20 lb. Patient did notice a change in the color of his urine. States his urine became very dark and orange. On presentation the patient has obvious jaundice. Vital signs were unremarkable. Exam revealed obvious jaundice. Patient had diffuse abdominal tenderness with increased right upper quadrant and bilateral lower quadrant tenderness. Differential diagnosis: ?Includes but is not limited to acute obstructive cholecystitis, alcoholic cirrhosis, ascites, SBP, viral hepatitis, anemia, electrolyte abnormalities Course: 10:00 My independent interpretation patient's laboratory evaluation is as follows: WBC elevated 13,900, normocytic anemia with an H&H of 11.4 and 31.4-chronic. AST and ALT elevated 284 and 77. LDH elevated 459. Alk-phos elevated 479. Direct bilirubin and indirect bilirubin were elevated at 13.4 9.1. Bicarb elevated 30. BUN creatinine were normal. Troponin was elevated 4.5. ETOH was elevated at 95. Lactic acid was elevated at 5.1-most likely due to liver failure and not sepsis. The patient was initially treated with morphine 4 mg IV, Reglan 10 mg IV and Benadryl 50 mg IV. I also ordered normal saline IV. Patient did get relief of his pain however his pain has persistence in his ordered to get a 2nd dose of morphine 4 mg IV. Repeat exam revealed significant right upper quadrant tenderness with a positive Gold sign. CT abdomen pelvis with IV contrast is consistent with a acute cholecystitis secondary to gallstones. The patient also has cirrhosis of the liver with a ascites-most likely secondary to his alcohol use disorder. I did discuss the patient's presentation with the covering surgeon, Dr. Osorio and he did evaluate the patient in the emergency department. He recommended admission to the hospitalist service for IV antibiotics and pain management. He did not think that the patient needs an acute surgical intervention at this time. He also recommending GI consult. I will discuss admission with the covering hospitalist in his well. Patient has a penicillin allergy and he gets hives when he receives penicillins. Therefore I ordered ceftriaxone 2 g IV and metronidazole 500 mg IV. I will repeat the patient's troponin since the 1st 1 was detectable but not elevated. And I do not think that the patient has had a myocardial infarction. The patient has had alcohol withdrawal in the past, I did order a CIWA scale q4 hours. Does not appear to be actively withdrawing from alcohol at this time. 10:35 I discuss admission over tiger connect with the covering hospitalist, nurse practitioner Shelia Jackson and the patient will be admitted for further treatment. Differential Diagnosis Differential Diagnoses: The differential diagnosis associated with the presentation includes (See above) Admission/Observation Consideration of admission/observation: Escalation of care including admission/observation considered (Yes) Consult Healthcare Provider Management of the patient was discussed with: Hospitalist and [employer] Teacher (Covering surgeon-Dr. Osorio) Lab Data MDM Lab Attestation statement: I reviewed the patient's lab results. 05/23/25 06:41 05/23/25 02:58 Labs: Lab Results 05/22/25 05/22/25 05/22/25 Range/Units 06:45 06:49 07:58 WBC 13.9 H (4.8-10.8) X10*3/uL RBC 3.33 L D (4.60-5.80) X10*6/uL Hgb 11.4 L (14.0-18.0) g/dl Hct 31.4 L D (42.0-52.0) % MCV 94.3 (80.0-98.0) fL MCH 34.2 H (27.0-33.0) pg MCHC 36.3 H (31.0-36.0) g/dl Plt Count 228 D (160-400) X10*3/uL MPV 10.0 (9.4-12.4) fL Immature Gran % (Auto) 0.9 H (0.0-0.4) % Neut % (Auto) 69.1 (45-73) % Lymph % (Auto) 18.9 L (20-40) % [place] % (Auto) 10.3 (2-11) % Eos % (Auto) 0.4 (0-4) % Baso % (Auto) 0.4 (0-2) % Lymph # (Auto) 2.6 (1.2-4.9) X10*3/uL [place] # (Auto) 1.4 H (0.1-1.2) X10*3/uL Eos # (Auto) 0.1 (0.0-0.4) X10*3/uL Baso # (Auto) 0.1 (0.0-0.2) X10*3/uL Abs Immat Gran (auto) 0.12 H (0.00-0.03) X10*3/uL Absolute Neuts (auto) 9.6 H (2.0-8.3) x10*3/uL Absolute Nucleated RBC 0.040 H (0.0-0.012) X10*3/uL Nucleated RBC % (auto) 0.3 H (0.0-0.2) /100WBC Sodium 140 (135-145) mmol/L Potassium 3.6 (3.3-5.1) mmol/L Chloride 96 (96-108) mmol/L Carbon Dioxide 30 H (22-29) mmol/L Anion Gap 18 (12-20) BUN 3 L (9-16) mg/dL Creatinine 0.35 L (0.5-1.4) mg/dL Estim Creat Clear Calc 412.9 Estimated GFR > 60 POC Glucose 97 (60-115) mg/dL Random Glucose 103 (60-115) mg/dL Lactic Acid 5.1 H* (0.5-2.0) mmol/L Calcium 9.0 (8.4-10.2) mg/dL Magnesium 1.1 L* (1.6-2.6) mg/dL Total Bilirubin 13.4 H (0.0-1.0) mg/dL Direct Bilirubin 9.1 H (0.0-0.5) mg/dL AST 284 H (5-37) U/L ALT 77 H (0-40) U/L Alkaline Phosphatase 479 H (39-117) U/L Lactate Dehydrogenase 459 H (118-273) U/L Troponin I High Sens 4.5 (<3.5-35.0) ng/L Total Protein 6.3 L (6.5-8.0) g/dL Albumin 2.8 L (3.5-5.0) g/dL Lipase 10 (8-78) U/L Ethyl Alcohol 95 mg/dL Blood Type O Positive Antibody Screen NEGATIVE Independent Interpretation I performed an independent interpretation of an: EKG Interpretation: My independent interpretation patient's 12 EKG done on 05/22/2025 at 06:51 hours is as follows: Sinus tachycardia with a rate of 115, normal UT interval, QRS duration QTC interval, no ST segment elevation, no ST segment depression, inverted T-wave in lead 3, no PACs, no PVCs. Compared to EKG dated 08/04/2025 at 21:05 hours inverted T-wave in his old, sinus tachycardia is new. Radiology Impression Discussion of test interpretation with radiology: I have reviewed the radiologist's reading. Radiologist Impression: CT abdomen and pelvis with contrast Comparison: CT - CT ABDOMEN PELVIS W IV CON - 05/22/25 07:55 EDT Findings: No consolidation or effusion. The liver is enlarged and cirrhotic appearing. The gallbladder is distended and contains stones in the region of the neck. Moderate volume ascites, new from prior. The kidneys, spleen and adrenal glands appear stable. The pancreas enhances expectedly. There is peripancreatic stranding, nonspecific given presence of ascites. No bowel obstruction or free air. No acute osseous finding. Small hiatal hernia. Postsurgical changes along the greater curvature of the stomach. Impression: Cirrhotic appearing liver with new moderate volume ascites. Distended gallbladder with stones in the region of the gallbladder neck. No definite gallbladder wall thickening. Stranding about the pancreas, nonspecific, given diffuse ascites. Pancreatitis unable to be excluded. This document has been electronically signed by: Matthew Chauhan MD on 05/22/2025 09:12:03 Independent Historian Clinical information obtained from an independent historian. History obtained from or confirmed by: Parent (Father) Chronic Conditions Patient?s care impacted by: Other (Alcohol use disorder) Medications Administered Generic Name Dose Route Start Last Admin Trade Name Freq PRN Reason Stop Dose Admin Famotidine 20 mg 05/22/25 21:00 05/22/25 19:35 Famotidine/Pf 20 Mg/2 Ml Vial IVPUSH 20 mg BID MICHAEL Administration Dextrose/Sodium Chloride 1,000 mls @ 100 mls/hr 05/22/25 10:45 05/22/25 22:27 D5ns IVCONT 100 mls/hr .Q10H MICHAEL Administration Metronidazole 500 mg in 100 mls @ 100 mls/hr 05/22/25 11:45 05/23/25 04:03 Flagyl IV Infused Q8H MICHAEL Infusion Magnesium Oxide 400 mg 05/22/25 12:55 05/22/25 16:50 Magnesium Oxide 400 Mg Tablet PO 400 mg BIDPC MICHAEL Administration Morphine Sulfate 2 mg 05/22/25 11:30 05/23/25 05:44 Morphine Sulfate 2 Mg/Ml Cartridge IVPUSH 2 mg Q4H PRN Administration Pain, Severe (Pain Scale 7-10) Protocol Sodium Chloride 3 ml 05/22/25 16:00 05/22/25 16:51 0.9 % Sodium Chloride Flush 3 Ml Syringe IVFLUSH 3 ml QSHIFT MICHAEL Administration Discontinued Medications Generic Name Dose Route Start Last Admin Trade Name Freq PRN Reason Stop Dose Admin Ceftriaxone Sodium 2 gm 05/22/25 09:54 05/22/25 10:29 Ceftriaxone Sodium 2 Gm Vial IVPUSH 05/22/25 09:55 2 gm ONCE ONE Administration Diphenhydramine HCl 50 mg 05/22/25 07:08 05/22/25 07:14 Diphenhydramine Hcl 50 Mg/Ml Vial IVPUSH 05/22/25 07:09 50 mg ONCE STA Administration Diphenhydramine HCl 25 mg 05/22/25 22:54 05/22/25 23:00 Diphenhydramine Hcl 25 Mg Capsule PO 05/22/25 22:55 25 mg ONCE ONE Administration Diphenhydramine HCl 25 mg 05/23/25 03:55 05/23/25 04:09 Diphenhydramine Hcl 50 Mg/Ml Vial IVPUSH 05/23/25 03:56 25 mg ONCE ONE Administration Sodium Chloride 1,000 mls @ 999 mls/hr 05/22/25 07:08 05/22/25 08:04 Ns IV 05/22/25 08:08 Infused .Q1H1M STA Infusion Metronidazole 500 mg in 100 mls @ 100 mls/hr 05/22/25 09:54 05/22/25 14:04 Flagyl IV 05/22/25 10:53 Infused ONCE ONE Infusion Magnesium Sulfate 2 gm in 50 mls @ 25 mls/hr 05/22/25 12:51 05/22/25 16:12 Magnesium Sulfate/H2o IV 05/22/25 14:50 Infused ONCE ONE Infusion Thiamine HCl 500 mg/ Sodium 105 mls @ 210 mls/hr 05/22/25 20:28 05/22/25 23:12 Chloride IV 05/22/25 20:57 Infused ONCE ONE Infusion Lactated Ringer's 500 mls @ 999 mls/hr 05/22/25 20:30 05/22/25 22:51 Lr IV 05/22/25 21:00 Infused .Q31M MICHAEL Infusion Iohexol 100 ml 05/22/25 08:13 05/22/25 08:14 Iohexol 350 Mg/Ml 100 Ml Infus..Btl IV 05/22/25 08:14 85 ml ONCE ONE Administration Metoclopramide HCl 10 mg 05/22/25 07:08 05/22/25 07:14 Metoclopramide Hcl 10 Mg/2 Ml Vial IVPUSH 05/22/25 07:09 10 mg ONCE STA Administration Morphine Sulfate 4 mg 05/22/25 07:08 05/22/25 07:14 Morphine Sulfate 4 Mg/Ml Cartridge IVPUSH 05/22/25 07:09 4 mg ONCE STA Administration Protocol Morphine Sulfate 4 mg 05/22/25 09:54 05/22/25 10:29 Morphine Sulfate 4 Mg/Ml Cartridge IVPUSH 05/22/25 09:55 4 mg ONCE STA Administration Protocol Critical Care Time Critical Care Time Critical Care Time: Yes Total Critical Care Time: 35 Attestation: Critical Care: The patient was critically ill with a high probability of imminent or life threatening deterioration. I spent greater than 30 minutes of discontinuous time evaluating the patient,delivering critical care at the bedside, discussing and evaluating pertinent data with consultants. Critical care time does not include time spent performing separately billable procedures or teaching. Total time spent performing critical care was 35 minutes. Discharge Plan Discharge Clinical Impression: Calculus of gallbladder with acute cholecystitis and obstruction, Alcohol use disorder Alcoholic cirrhosis Qualifiers: Ascites presence: with ascites Qualified Code(s): K70.31 - Alcoholic cirrhosis of liver with ascites Abdominal ascites Qualifiers: Ascites type: due to alcoholic cirrhosis Qualified Code(s): K70.31 - Alcoholic cirrhosis of liver with ascites Patient Disposition: Admitted As Inpatient Interventions: Admission Worksheet (ED) Last Done: 05/22/25 11:56 Discharge Date/Time: 05/22/25 13:12
--- NOTE | 2025-05-22 06:59 | PC.NURSE ---
assumed care of patient at 0700, patient is awake and alert, oriented x4. patient noted to be jaundice, has bruising to left abd. patient presented with lower abd pain, vomiting and nausea. patient states he last drank 2 weeks ago. patient is in sinus tach rate 120s.
[2025-05-22 07:11] LABS: Alanine Aminotransferase 77 U/L (0-40); Albumin Level 2.8 g/dL (3.5-5.0); Alkaline Phosphatase 479 U/L (39-117); Anion Gap 18 (12-20); Aspartate Amino Transferase 284 U/L (5-37); Blood Urea Nitrogen 3 mg/dL (9-16); Calcium 9.0 mg/dL (8.4-10.2); Carbon Dioxide 30 mmol/L (22-29); Chloride 96 mmol/L (96-108); Creatinine Clr Calc Pharmacy 412.9; Estimated Glomerular Filt Rate > 60; Lipase 10 U/L (8-78); Potassium 3.6 mmol/L (3.3-5.1); Sodium 140 mmol/L (135-145); Total Protein 6.3 g/dL (6.5-8.0)
[2025-05-22 07:17] LABS: Troponin-I High Sensitivity 4.5 ng/L (<3.5-35.0)
[2025-05-22] MEDS: iohexoL 350 MG/ML 100 ML INFUS..BTL IV (08:14)
[2025-05-22 10:05] LABS: Reflex Lactate? Lactic Acid Added
[2025-05-22] MEDS: metroNIDAZOLE/NS 500 MG/100 ML PIGGYBACK 100 MG IV ×2 (10:29→19:35)
--- NOTE | 2025-05-22 10:30 | PM.CNGS ---
History of Present Illness Consult details Consult date: 05/22/25 Reason for consult: abdominal pain Requesting physician: Honorio Francisco Narrative: 29-year-old male patient presenting with complaints of abdominal pain mainly in the lower abdomen this sensation of abdominal distention. He reports gaining approximately 20 lb of weight recently along with the increased abdominal girth. His past history is significant for gastric sleeve surgery followed by panniculectomy performed by Dr. Moran at [facility] approximately 10 years ago. He denies any problems following the surgery. More recently he has been drinking more alcohol he reports that he was a recovering alcoholic. He noted his urine to be darker/orange in color. His eyes were noted to be enteric as well. He denies a known history of liver disease. He presented to the emergency department and was noted to be tender throughout his abdomen. Laboratories revealed an elevated WBC of 13.9. LFTs were markedly elevated including total bilirubin of 13.4; lactate was 5.1. CT abdomen and pelvis revealed evidence of cirrhosis with ascites, the gallbladder was also appeared distended with gallstone in the neck. There was no evidence of common bile duct dilatation by CT. Surgical consultation was requested regarding management of the gallbladder stones. Review of Systems Review of Systems: Yes all other systems are reviewed and are negative PMFSH Past Medical History Medical History Hypomagnesemia Low back pain Morbid obesity with BMI of 40.0-44.9, adult Alcohol use disorder, severe, dependence Hyperparathyroidism Vitamin D deficiency Alcohol use disorder Electrolyte imbalance Acidosis, lactic Weakness Acute hypokalemia Alcohol abuse Obesity Hypocalcemia Anxiety ADHD Periodontitis Alcoholism Hernia Surgical History Surgical History H/O gastric sleeve Social History Social History Household Members: Family Household Members Other:: parents, grandma and girlfriend Housing: House Do you presently have visiting nurse or other home services: No Alcohol intake: current Alcohol type: hard liquor Comment: refusing fall risk intervention. Patient Tobacco Use Status: Never used Tobacco e-Cigarette/Vaping Use: Never Used Substance Use Type: Marijuana Advance Directives: No Advance Directives Information Provided: No service: No Current occupational status: unemployed Current occupational exposures/hazards: No Cognitive needs: No Hearing needs: No Vision needs: No Meds Allergies Allergy/AdvReac Type Severity Reaction Status Date / Time amoxicillin Allergy Unknown hives Verified 05/22/25 06:23 Penicillins (PENICILLINS) Allergy Unknown ANAPHYLAXIS Verified 05/22/25 06:23 red dye (RED DYE) Allergy Unknown UNKNOWN Verified 05/22/25 06:23 shrimp (SHRIMP) Allergy Unknown UNKNOWN Verified 05/22/25 06:23 Sulfa (Sulfonamide Allergy Unknown hives Verified 05/22/25 06:23 Antibiotics) sulfamethoxazole (From Allergy Unknown UNKNOWN Verified 05/22/25 06:23 BACTRIM) trimethoprim (From BACTRIM) Allergy Unknown UNKNOWN Verified 05/22/25 06:23 Biaxin Allergy Unknown hives Uncoded 05/22/25 06:23 SEAFOOD Allergy Unknown UNKNOWN Uncoded 05/22/25 06:23 Active Medications: Current Medications Metronidazole (Flagyl) 500 mg in 100 mls @ 100 mls/hr IV ONCE ONE Stop: 05/22/25 10:53 Home Medications ?Medication ?Instructions ?Recorded ?Confirmed ?Last Taken ?Type cholecalciferol (vitamin D3) 50 50 mcg PO DAILY 08/05/24 10/16/24 08/03/24 History mcg (2,000 unit) capsule cyanocobalamin (vitamin B-12) 1,000 mcg PO DAILY 08/05/24 10/16/24 08/03/24 History 1,000 mcg tablet (Vitamin B-12) multivitamin 1 tab PO DAILY 08/05/24 10/16/24 08/03/24 History thiamine HCl (vitamin B1) 100 mg 100 mg PO DAILY 08/05/24 10/16/24 08/03/24 History tablet (Vitamin B-1) Physical Exam Vital Signs: Vital Signs: Last Vital Signs Temp 98.3 F 05/22/25 08:22 Pulse 105 H 05/22/25 08:22 Resp 20 05/22/25 08:22 BP 134/84 05/22/25 08:22 Pulse Ox 94 05/22/25 08:22 O2 Del Method Room Air 05/22/25 08:22 BMI result Body Mass Index 40.2 Const: General: no acute distress Nutritional Appearance: obese Orientation/consciousness: patient oriented x3 Limitations: no limitations HEENT: Head: Yes normocephalic and Yes atraumatic Ears: hearing grossly normal bilaterally Eyes: Sclerae: scleral abnormal (Scleral icterus) Resp: Effort & Inspection: normal respiratory effort, no audible wheezes, no cough and no respiratory distress Cardio: Jugular venous distension: no JVD GI: Inspection: Yes normal to inspection, Yes distended and Yes obesity Palpation (GI): Soft to palpation, Tenderness to palpation present (GI) in the LLQ and in the RLQ; Gold's sign negative, no guarding and not rigid Percussion: Yes Fluid wave present Auscultation: normal bowel sounds Skin: Other: Warm, dry, no rash Neuro: General: patient oriented x3 Extrem: General: Yes no clubbing, cyanosis or edema Results Labs 05/22/25 06:45 05/22/25 06:45 Labs: Abnormal lab results 05/22/25 05/22/25 Range/Units 06:45 07:58 WBC 13.9 H (4.8-10.8) X10*3/uL RBC 3.33 L D (4.60-5.80) X10*6/uL Hgb 11.4 L (14.0-18.0) g/dl Hct 31.4 L D (42.0-52.0) % MCH 34.2 H (27.0-33.0) pg MCHC 36.3 H (31.0-36.0) g/dl Immature Gran % (Auto) 0.9 H (0.0-0.4) % Lymph % (Auto) 18.9 L (20-40) % [place] # (Auto) 1.4 H (0.1-1.2) X10*3/uL Abs Immat Gran (auto) 0.12 H (0.00-0.03) X10*3/uL Absolute Neuts (auto) 9.6 H (2.0-8.3) x10*3/uL Absolute Nucleated RBC 0.040 H (0.0-0.012) X10*3/uL Nucleated RBC % (auto) 0.3 H (0.0-0.2) /100WBC Carbon Dioxide 30 H (22-29) mmol/L BUN 3 L (9-16) mg/dL Creatinine 0.35 L (0.5-1.4) mg/dL Lactic Acid 5.1 H* (0.5-2.0) mmol/L Total Bilirubin 13.4 H (0.0-1.0) mg/dL Direct Bilirubin 9.1 H (0.0-0.5) mg/dL AST 284 H (5-37) U/L ALT 77 H (0-40) U/L Alkaline Phosphatase 479 H (39-117) U/L Lactate Dehydrogenase 459 H (118-273) U/L Total Protein 6.3 L (6.5-8.0) g/dL Albumin 2.8 L (3.5-5.0) g/dL Short CBC 05/22/25 Range/Units 06:45 WBC 13.9 H (4.8-10.8) X10*3/uL Hgb 11.4 L (14.0-18.0) g/dl Hct 31.4 L D (42.0-52.0) % Plt Count 228 D (160-400) X10*3/uL BMP 05/22/25 06:45 Sodium 140 Potassium 3.6 Chloride 96 Carbon Dioxide 30 H BUN 3 L Creatinine 0.35 L Calcium 9.0 Liver Function 05/22/25 Range/Units 06:45 Total Bilirubin 13.4 H (0.0-1.0) mg/dL Direct Bilirubin 9.1 H (0.0-0.5) mg/dL AST 284 H (5-37) U/L ALT 77 H (0-40) U/L Alkaline Phosphatase 479 H (39-117) U/L Albumin 2.8 L (3.5-5.0) g/dL All other labs normal. Imaging Abdomen CT scan report/results: image reviewed CT scan - pelvis: image reviewed Assessment and Plan (1) Alcoholic cirrhosis: Qualifiers: Ascites presence: with ascites Qualified Code(s): K70.31 - Alcoholic cirrhosis of liver with ascites Status: Acute (2) Abdominal ascites: Qualifiers: Ascites type: due to alcoholic cirrhosis Qualified Code(s): K70.31 - Alcoholic cirrhosis of liver with ascites Status: Acute (3) Calculus of gallbladder with acute cholecystitis and obstruction: Status: Acute (4) Elevated liver enzymes: Status: Acute Plan 29-year-old male patient with known alcoholic history now presenting with abdominal distention, weight gain, increased abdominal pain found on workup to have a significant collection of ascites as well as liver enlargement suggestive of biliary cirrhosis. Patient's LFTs are elevated as well. Patient coincidentally has gallstones in the gallbladder but no evidence of ductal dilatation to my review of the CT. Patient's symptoms appear to be related to his liver disease and ascites and less likely to be due to the gallbladder. I would not recommend cholecystectomy at this time. Suggest gastroenterology consultation, drainage of ascites and management of liver disease. Procedures Date of Service Date of Service: 05/22/25
--- NOTE | 2025-05-22 10:41 | P.HPHOSP_ITS ---
History of Present Illness Date of Service: 05/22/25 Chief Complaint: abd pain Year old man presenting to the ER with abdominal pain for the last 2 days and a possible 20 lb weight loss over the last 2 weeks. Patient had initially reported that he had not been drinking alcohol for 2 weeks but after further discussion he reported that he has been drinking a handle of vodka a day. He describes the abdominal pain as constant pressure-like pain towards the right upper quadrant and lower abdomen. He reported that the right side of his abdomen has been feeling distended but actually had felt better today. He reported that his urine had been very dark and orange like and noticed the discoloration in his skin. He denied fever, chills, nausea, vomiting, diarrhea. In the ER, abdominal and pelvic CT showed cirrhotic appearing liver with new moderate volume ascites, distended gallbladder with stones in the region of the gallbladder neck and pancreatic stranding with diffuse ascites. His blood pressure was noted to be in the higher side, mildly tachycardic, initial lactic acid of 5.1, total bilirubin of 13.4, AST 284, ALT 77, alk phos 479, LDH 459. Plan will be to admit patient for further management and treatment of acute cholecystitis, liver cirrhosis and possible pancreatitis Review of Systems 2 Review of Systems: Denies any recent fever chills or decrease in appetite respiratory denies any shortness of breath or cough cardiovascular denies chest pain gastrointestinal see HPI genitourinary see HPI musculoskeletal denies any joint pain or swelling neuropsych denies any weakness or seizures all other systems reviewed are negative [facility] Medical History (Updated 05/22/25 @ 11:23 by Shelia Jackson NP) Low back pain Morbid obesity with BMI of 40.0-44.9, adult Hyperparathyroidism Vitamin D deficiency Alcohol use disorder Weakness Anxiety ADHD Periodontitis Alcoholism Hernia Surgical History H/O gastric sleeve Social History (Updated 05/22/25 @ 11:24 by Shelia Jackson NP) Household Members: Family Household Members Other:: parents, grandma and girlfriend Housing: House Do you presently have visiting nurse or other home services: No Alcohol intake: current Alcohol type: hard liquor Comment: A handle of vodka a day Patient Tobacco Use Status: Never used Tobacco e-Cigarette/Vaping Use: Never Used Substance Use Type: Marijuana Advance Directives: No Advance Directives Information Provided: No service: No Current occupational status: unemployed Current occupational exposures/hazards: No Cognitive needs: No Hearing needs: No Vision needs: No Meds Allergies Allergy/AdvReac Type Severity Reaction Status Date / Time amoxicillin Allergy Unknown hives Verified 05/22/25 06:23 Penicillins (PENICILLINS) Allergy Unknown ANAPHYLAXIS Verified 05/22/25 06:23 red dye (RED DYE) Allergy Unknown UNKNOWN Verified 05/22/25 06:23 shrimp (SHRIMP) Allergy Unknown UNKNOWN Verified 05/22/25 06:23 Sulfa (Sulfonamide Allergy Unknown hives Verified 05/22/25 06:23 Antibiotics) sulfamethoxazole (From Allergy Unknown UNKNOWN Verified 05/22/25 06:23 BACTRIM) trimethoprim (From BACTRIM) Allergy Unknown UNKNOWN Verified 05/22/25 06:23 Biaxin Allergy Unknown hives Uncoded 05/22/25 06:23 SEAFOOD Allergy Unknown UNKNOWN Uncoded 05/22/25 06:23 Active Medications: Current Medications Acetaminophen (Acetaminophen 325 Mg Tablet) 650 mg PO Q6H PRN PRN Reason: Pain, Mild 1-3,fever,headache Calcium Carbonate (Calcium Carbonate 750 Mg Tab.Chew) 750 mg PO Q4H PRN PRN Reason: Heartburn Metronidazole (Flagyl) 500 mg in 100 mls @ 100 mls/hr IV ONCE ONE Stop: 05/22/25 10:53 Last Admin: 05/22/25 10:29 Dose: 100 mls/hr Dextrose/Sodium Chloride (D5ns) 1,000 mls @ 100 mls/hr IVCONT .Q10H MICHAEL Magnesium Hydroxide (Milk Of Magnesia 30 Ml Oral.Susp) 30 ml PO DAILY PRN PRN Reason: Constipation Melatonin (Melatonin 3 Mg Tablet) 6 mg PO BEDTIME PRN PRN Reason: Insomnia Ondansetron HCl (Ondansetron Hcl 4 Mg/2 Ml Vial) 4 mg IVPUSH Q8H PRN PRN Reason: Nausea and Vomiting Sodium Chloride (0.9 % Sodium Chloride Flush 3 Ml Syringe) 3 ml IVFLUSH QSHIFT [facility] Home Medications ?Medication ?Instructions ?Recorded ?Confirmed ?Last Taken ?Type cholecalciferol (vitamin D3) 50 50 mcg PO DAILY 05/22/25 05/20/25 History mcg (2,000 unit) capsule cyanocobalamin (vitamin B-12) 1,000 mcg PO DAILY 08/0505/22/25 05/20/25 History 1,000 mcg tablet (Vitamin B-12) multivitamin 1 tab PO DAILY 08/05/2404/2705/20/25 History thiamine HCl (vitamin B1) 100 mg 100 mg PO DAILY 08/0505/22/25 05/20/25 History tablet (Vitamin B-1) atomoxetine 10 mg capsule 40 mg PO DAILY 05/22/2504/2705/20/25 History ibuprofen 200 mg tablet 400 mg PO Q8H PRN Pain (Scal e 05/22/25 05/22/25 Unknown History Score 4-6) Physical Exam 2 Vital Signs and Narrative: Vital Signs: Last Vital Signs Temp 97.9 F 05/22/25 10:37 Pulse 102 H 05/22/25 10:37 Resp 14 05/22/25 10:37 BP 157/97 H 05/22/25 10:37 Pulse Ox 96 05/22/25 10:37 O2 Del Method Room Air 05/22/25 10:37 BMI result Body Mass Index 40.2 Appearing in no acute distress Skin jaundice head is normocephalic atraumatic eyes pupils are PERRLA sclera icteric mouth throat mucous membranes are intact and dry neck is supple no lymphadenopathy, no JVD noted lung sounds are clear to auscultation heart regular rate rhythm, clear S1, S2 positive bowel sounds, abdomen is soft, nontender neuro patient is alert x3, no focal deficits Results Labs 05/22/25 06:45 05/22/25 06:45 Labs: Laboratory Results - last 24 hr 05/22/25 05/22/25 05/22/25 06:45 06:49 07:58 MCV 94.3 MCH 34.2 H MCHC 36.3 H Plt Count 228 D MPV 10.0 Immature Gran % (Auto) 0.9 H Neut % (Auto) 69.1 Lymph % (Auto) 18.9 L [place] % (Auto) 10.3 Eos % (Auto) 0.4 Baso % (Auto) 0.4 Lymph # (Auto) 2.6 [place] # (Auto) 1.4 H Eos # (Auto) 0.1 Baso # (Auto) 0.1 Abs Immat Gran (auto) 0.12 H Absolute Neuts (auto) 9.6 H Absolute Nucleated RBC 0.040 H Nucleated RBC % (auto) 0.3 H Anion Gap 18 Estim Creat Clear Calc 412.9 Estimated GFR > 60 POC Glucose 97 Random Glucose 103 Lactic Acid 5.1 H* Calcium 9.0 Total Bilirubin 13.4 H Direct Bilirubin 9.1 H AST 284 H ALT 77 H Alkaline Phosphatase 479 H Lactate Dehydrogenase 459 H Troponin I High Sens 4.5 Total Protein 6.3 L Albumin 2.8 L Lipase 10 Ethyl Alcohol 95 Blood Type O Positive Antibody Screen NEGATIVE Assessment and Plan (1) Alcohol use disorder, severe, dependence: Status: Acute Plan 29 year old man admitted for acute kaitlynn, liver cirrhosis with history of drinking vodka daily. Acute cholecystitis consult General surgery Likely no surgery at this time with acute on chronic liver cirrhosis Start Rocephin and Flagyl Pain management Liver cirrhosis secondary to alcohol abuse with concern for withdrawal Secondary to transaminitis we will hold off on phenobarbital Follow CIWA scale for now with medication coverage as needed GI consultation> likely alcoholic hepatitis, get abd us, diagnostic tap and cxr MELD score 23 Multivitamin, thiamine, folic acid Transaminitis Total bili 13.4, AST 284, ALT 77, lactate 459 Secondary to alcohol abuse, liver cirrhosis Monitor Hypomagnesemia replate with IV and oral Leukocytosis Likely secondary to acute cholecystitis Continue antibiotics Lactic acidosis Likely secondary to liver cirrhosis Mental health Continue citalopram DVT prophylaxis with pneumatic compression boots Full code Quality Stroke Does the patient have a stroke diagnosis?: No VTE Prior VTE?: No VTE Risk Level:: Medical - moderate - high VTE Device Contraindication: N/A - Device Ordered VTE Drug Contraindication: Treatment Not Indicated
[2025-05-22 11:20] LABS: Troponin-I High Sensitivity 4.4 ng/L (<3.5-35.0)
--- NOTE | 2025-05-22 11:22 | PHA.MEDREC ---
Addendum entered by Sloane Yates RPh 05/22/25 11:52: Reviewed by [facility] Original Note: Pharmacy Consult ? Medication Reconciliation Pharmacy has completed the medication reconciliation. Confirmed medication list with patient. Patient states he last took all his medications on in the morning, but could not confirm evening dose of acamprosate. Patient purchases and takes vitamin B-12 OTC.
[2025-05-22 11:30] LABS: ~Lactic Acid-LAB USE ONLY 4.4 mmol/L (0.5-2.0)
[2025-05-22 12:01] LABS: Magnesium 1.1 mg/dL (1.6-2.6)
--- NOTE | 2025-05-22 12:05 | HO.NURTONUR ---
Pt arrived to ED c/o abd pain and distention x2 days, dark urine, skin discoloration (jaundice), and approx 20lb weight loss in 2 weeks. Hx ETOH, denies recent alcohol use but further discussion revealed daily drinking of approx 1 handle vodka/day. CT showed 'cirrhotic appearing liver with new moderate volume ascites, distended gallbladder with stones in the region of the gallbladder neck and pancreatic stranding with diffuse ascites.' Pt currently in sinus tach, initial lactic acid of 5.1 to 4.4, t-bili of 13.4, AST 284, ALT 77, alk phos 479, LDH 459. Admit for pain management, tx of acute kaitlynn (currently approved for clear liquid diet), IVF and IV abx. AAox4, ambulatory/independent.
[2025-05-22 12:08] LABS: INTERNATIONAL NORM RATIO 1.8 (0.9-1.1); Prothrombin Time 20.4 SEC (10.9-12.4)
[2025-05-22 12:11] LABS: Partial Thromboplastin Time 31.3 SEC (26.7-34.1)
[2025-05-22 12:55] LABS: Reflex Lactate? 2 Y
[2025-05-22 13:34] LABS: ~Lactic Acid-LAB USE ONLY 4.5 mmol/L (0.5-2.0)
[2025-05-22] MEDS: Magnesium Sulfate/H2O 2 GM/50 ML PIGGYBACK IV (14:12)
[2025-05-22] MEDS: 0.9 % Sodium Chloride Flush 3 ML SYRINGE IVFLUSH (16:51)
[2025-05-22 17:18] LABS: Reflex Lactate? Lactic Acid Added
[2025-05-22 18:12] LABS: ~Lactic Acid-LAB USE ONLY 4.6 mmol/L (0.5-2.0)
[2025-05-22 19:43] LABS: Reflex Lactate? 2 Y
[2025-05-22 20:29] LABS: ~Lactic Acid-LAB USE ONLY 7.3 mmol/L (0.5-2.0)
[2025-05-22] MEDS: Lactated Ringers 500 ML 999 ML IV (20:38)
[2025-05-23] VITALS (10 sets, daily range): BP systolic 128–162; BP diastolic 75–88; PULSE 97–106; RESP 16–20; TEMP 36.3–37.4; O2SAT 92–97
[2025-05-23 00:04] LABS: Anion Gap 14 (12-20); Blood Urea Nitrogen 4 mg/dL (9-16); Calcium 7.9 mg/dL (8.4-10.2); Carbon Dioxide 28 mmol/L (22-29); Chloride 97 mmol/L (96-108); Creatinine Clr Calc Pharmacy 337.6; Estimated Glomerular Filt Rate > 60; Potassium 3.1 mmol/L (3.3-5.1); Sodium 136 mmol/L (135-145)
[2025-05-23 01:28] LABS: Reflex Lactate? Lactic Acid Added
[2025-05-23] MEDS: metroNIDAZOLE/NS 500 MG/100 ML PIGGYBACK 100 MG IV ×3 (03:01→19:24)
[2025-05-23 03:27] LABS: Anion Gap 13 (12-20); Blood Urea Nitrogen 4 mg/dL (9-16); Calcium 7.7 mg/dL (8.4-10.2); Carbon Dioxide 29 mmol/L (22-29); Chloride 98 mmol/L (96-108); Creatinine Clr Calc Pharmacy 365.0; Estimated Glomerular Filt Rate > 60; Potassium 3.0 mmol/L (3.3-5.1); Sodium 137 mmol/L (135-145)
[2025-05-23 03:29] LABS: ~Lactic Acid-LAB USE ONLY 3.4 mmol/L (0.5-2.0)
[2025-05-23 05:01] LABS: Reflex Lactate? 2 Y
[2025-05-23 07:15] LABS: Hematocrit 25.8 % (42.0-52.0); Hemoglobin 9.5 g/dl (14.0-18.0); Mean Corpuscular HGB Conc 36.8 g/dl (31.0-36.0); Mean Corpuscular Hemoglobin 34.8 pg (27.0-33.0); Mean Corpuscular Volume 94.5 fL (80.0-98.0); NRBC Abs Auto 0.030 X10*3/uL (0.0-0.012); NRBC Pct Auto 0.3 /100WBC (0.0-0.2); Platelet Count 141 X10*3/uL (160-400); Red Blood Count 2.73 X10*6/uL (4.60-5.80); White Blood Count 10.0 X10*3/uL (4.8-10.8)
[2025-05-23 07:20] LABS: Alanine Aminotransferase 56 U/L (0-40); Albumin Level 2.3 g/dL (3.5-5.0); Alkaline Phosphatase 365 U/L (39-117); Aspartate Amino Transferase 223 U/L (5-37); Total Protein 5.0 g/dL (6.5-8.0)
[2025-05-23 07:27] LABS: ~Lactic Acid-LAB USE ONLY 3.7 mmol/L (0.5-2.0)
[2025-05-23 07:35] LABS: Cancel Lactic Acid Canceled
--- NOTE | 2025-05-23 08:25 | P.CNGI_ITS ---
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 Patient seen in bedside and reports abdominal pain with nausea and vomiting over the last 2 weeks. This is associated with burning epigastric pain and loss of appetite. He has also noticed increase in abdominal girth around the same time despite weight loss. Reports drinking a handle of vodka (1.75L) daily. Lost his job recently so using etOH as a coping crutch. Has had longstanding history of alcohol use. Has been in detox program a number of times. Family history also positive for alcohol use disorder, in mother. On initial presentation, was noted to be tachycardic and hypertensive. Labs significant for positive alcohol level, leukocytosis, anemia with thrombocytopenia, INR 1.8 bilirubin 13.4, mostly direct, AST greater than ALC CT abdomen and pelvis with cirrhotic appearing liver with ascites as well as distended gallbladder with possible stones in the gallbladder neck. Review of Systems 2 Review of Systems: Yes all other systems are reviewed and are negative PMFSH Past Medical History Medical History (Updated 05/23/25 @ 10:46 by Marta Simental MD) Low back pain Morbid obesity with BMI of 40.0-44.9, adult Hyperparathyroidism Vitamin D deficiency Alcohol use disorder Weakness Anxiety ADHD Periodontitis Alcoholism Hernia Surgical History Surgical History H/O gastric sleeve Social History Social History Household Members: Family Household Members Other:: Father, grandma and girlfriend Housing: House Do you presently have visiting nurse or other home services: No Alcohol intake: current Alcohol type: hard liquor Comment: A handle of vodka a day Patient Tobacco Use Status: Never used Tobacco e-Cigarette/Vaping Use: Never Used Substance Use Type: Marijuana service: No Current occupational status: unemployed Current occupational exposures/hazards: No Cognitive needs: No Hearing needs: No Vision needs: No Meds Allergies Allergy/AdvReac Type Severity Reaction Status Date / Time amoxicillin Allergy Unknown hives Verified 05/22/25 06:23 Penicillins (PENICILLINS) Allergy Unknown ANAPHYLAXIS Verified 05/22/25 06:23 red dye (RED DYE) Allergy Unknown UNKNOWN Verified 05/22/25 06:23 shrimp (SHRIMP) Allergy Unknown UNKNOWN Verified 05/22/25 06:23 Sulfa (Sulfonamide Allergy Unknown hives Verified 05/22/25 06:23 Antibiotics) sulfamethoxazole (From Allergy Unknown UNKNOWN Verified 05/22/25 06:23 BACTRIM) trimethoprim (From BACTRIM) Allergy Unknown UNKNOWN Verified 05/22/25 06:23 Biaxin Allergy Unknown hives Uncoded 05/22/25 06:23 SEAFOOD Allergy Unknown UNKNOWN Uncoded 05/22/25 06:23 Active Medications: Current Medications Acetaminophen (Acetaminophen 325 Mg Tablet) 650 mg PO Q6H PRN PRN Reason: Pain, Mild 1-3,fever,headache Calcium Carbonate (Calcium Carbonate 750 Mg Tab.Chew) 750 mg PO Q4H PRN PRN Reason: Heartburn Ceftriaxone Sodium (Ceftriaxone Sodium 1 Gm Vial) 1 gm IVPUSH Q24H [facility] Escitalopram Oxalate (Escitalopram Oxalate 10 Mg Tablet) 10 mg PO DAILY [facility] Famotidine (Famotidine/Pf 20 Mg/2 Ml Vial) 20 mg IVPUSH BID [facility] Last Admin: 05/22/25 19:35 Dose: 20 mg Folic Acid (Folic Acid 1 Mg Tablet) 1 mg PO DAILY [facility] Stop: 05/26/25 08:59 Dextrose/Sodium Chloride (D5ns) 1,000 mls @ 100 mls/hr IVCONT .Q10H [facility] Last Admin: 05/22/25 22:27 Dose: 100 mls/hr Metronidazole (Flagyl) 500 mg in 100 mls @ 100 mls/hr IV Q8H [facility] Last Infusion: 05/23/25 04:03 Dose: Infused Magnesium Hydroxide (Milk Of Magnesia 30 Ml Oral.Susp) 30 ml PO DAILY PRN PRN Reason: Constipation Magnesium Oxide ([facility] 400 Mg [facility]t) [facility] Last Admin: 05/22/25 16:50 Dose: 400 mg Melatonin (Melatonin 3 Mg Tablet) 6 mg PO BEDTIME PRN PRN Reason: Insomnia Morphine Sulfate (Morphine Sulfate 2 Mg/Ml Cartridge) 2 mg IVPUSH Q4H PRN; Protocol PRN Reason: Pain, Severe (Pain Scale 7-10) Last Admin: 05/23/25 05:44 Dose: 2 mg Multivitamins/Vitamin C (Multivitamin Tablet) 1 tab PO DAILY [facility] Stop: 05/26/25 08:59 Ondansetron HCl (Ondansetron Hcl 4 Mg/2 Ml Vial) 4 mg IVPUSH Q8H PRN PRN Reason: Nausea and Vomiting Sodium Chloride (0.9 % Sodium Chloride Flush 3 Ml Syringe) 3 ml IVFLUSH QSHIFT [facility] Last Admin: 05/22/25 16:51 Dose: 3 ml Thiamine HCl (Thiamine Hcl 100 Mg Tablet) 100 mg PO DAILY [facility] Stop: 05/26/25 08:59 Home Medications ?Medication ?Instructions ?Recorded ?Confirmed ?Last Taken ?Type cholecalciferol (vitamin D3) 50 50 mcg PO DAILY 05/22/25 05/20/25 History mcg (2,000 unit) capsule cyanocobalamin (vitamin B-12) 1,000 mcg PO DAILY 08/0505/22/25 05/20/25 History 1,000 mcg tablet (Vitamin B-12) multivitamin 1 tab PO DAILY 08/05/2404/2705/20/25 History thiamine HCl (vitamin B1) 100 mg 100 mg PO DAILY 08/0505/22/25 05/20/25 History tablet (Vitamin B-1) atomoxetine 10 mg capsule 40 mg PO DAILY 05/22/2504/2705/20/25 History ibuprofen 200 mg tablet 400 mg PO Q8H PRN Pain (Scal e 05/22/25 05/22/25 Unknown History Score 4-6) Physical Exam 2 Exam: Exam: Young male Obese appearing Icteric No overt respiratory distress No lower extremity edema Vital Signs: Vital Signs: Last Vital Signs Temp 97.6 F 05/23/25 07:36 Pulse 99 05/23/25 07:36 Resp 18 05/23/25 07:36 BP 128/75 05/23/25 07:36 Pulse Ox 92 05/23/25 07:36 O2 Del Method Room Air 05/23/25 07:36 BMI result Body Mass Index 35.3 Results Labs 05/23/25 06:41 05/23/25 02:58 Labs: Short CBC 05/23/25 Range/Units 06:41 WBC 10.0 (4.8-10.8) X10*3/uL Hgb 9.5 L (14.0-18.0) g/dl Hct 25.8 L (42.0-52.0) % Plt Count 141 L D (160-400) X10*3/uL BMP 05/22/25 05/23/25 23:22 02:58 Sodium 136 137 Potassium 3.1 L 3.0 L Chloride 97 98 Carbon Dioxide 28 29 BUN 4 L 4 L Creatinine 0.40 L 0.37 L Calcium 7.9 L D 7.7 L Liver Function 05/22/25 05/23/25 Range/Units 06:45 06:41 Total Bilirubin 13.2 H (0.0-1.0) mg/dL Direct Bilirubin 9.1 H 9.1 H (0.0-0.5) mg/dL AST 223 H (5-37) U/L ALT 56 H (0-40) U/L Alkaline Phosphatase 365 H (39-117) U/L Albumin 2.3 L (3.5-5.0) g/dL Assessment and Plan (1) Alcoholic hepatitis with ascites: Status: Acute (2) Alcohol use disorder, severe, dependence: Status: Acute (3) Elevated liver enzymes: Status: Acute (4) Abdominal ascites: Qualifiers: Ascites type: due to alcoholic cirrhosis Qualified Code(s): K70.31 - Alcoholic cirrhosis of liver with ascites Status: Acute (5) Vomiting: Status: Acute (6) Abdominal pain: Qualifiers: Abdominal location: generalized Qualified Code(s): R10.84 - Generalized abdominal pain Status: Inactive (7) Cirrhosis: Status: Acute Plan MDF 59.4 MELD Na 24 Patient presenting with 2 weeks of diffuse abdominal pain with vomiting and worsening jaundice. Found to have possible alcoholic hepatitis with underlying cirrhosis, ascites and question of cholecystitis. Clinically, does not appear to have acute cholecystitis, but HIDA scan is pending. Reviewed with the patient, that given ongoing liver injury, sometimes HIDA can be nondiagnostic but will review results. Appreciate recommendations from surgery. From liver standpoint, as alcoholic hepatitis in the background of cirrhosis. Accurate assessment of underlying liver function to be made after resolution of alcoholic hepatitis in complete sobriety from alcohol for at least 3-6 months. Unfortunately, patient has had multiple relapses in the past, and remains at risk for future relapse. Plan: - Hep serologies pending - Daily MELD labs - If HIDA neg, resume diet. Encourage protein intake - at least 1.2-1.5g/kg of protein intake. (mortality benefit) - Diagnostic paracentesis to r/o SBP - If SBP negative, start prednisolone 40 mg once daily - Obtain Lille score on day 4 or 7 to assess response - Addiction med consultation when pt able to participate - Outpatient GI follow up will also be scheduled for longitudinal cirrhosis care Thank you for allowing me to participate in his care. Please do not hesitate to reach out for any questions or concerns. Procedures Date of Service Date of Service: 05/23/25
--- NOTE | 2025-05-23 09:44 | PM.PNGS ---
Subjective Subjective Date of Service: 05/23/25 Interval history: Patient receiving abdominal ultrasound at time of examination. Patient found to have tenderness in the lower abdomen and right upper quadrant. Physical Exam Vital Signs: Vital Signs: Last Vital Signs Temp 97.6 F 05/23/25 07:36 Pulse 99 05/23/25 07:36 Resp 18 05/23/25 07:36 BP 128/75 05/23/25 07:36 Pulse Ox 92 05/23/25 07:36 O2 Del Method Room Air 05/23/25 07:36 BMI result Body Mass Index 35.3 Const: General: no acute distress Nutritional Appearance: obese Orientation/consciousness: patient oriented x3 Limitations: no limitations Eyes: Sclerae: scleral abnormal (Scleral icterus) Resp: Effort & Inspection: normal respiratory effort, no audible wheezes, no cough and no respiratory distress GI: Inspection: Yes normal to inspection, Yes distended and Yes obesity Palpation (GI): Soft to palpation, Tenderness to palpation present (GI) in the LLQ and in the RLQ; Gold's sign negative, no guarding and not rigid Percussion: Yes Fluid wave present Auscultation: normal bowel sounds Skin: Other: Warm, dry, no rash Neuro: General: patient oriented x3 Extrem: General: Yes no clubbing, cyanosis or edema Objective Data Active Medications Acetaminophen (Acetaminophen 325 Mg Tablet) 650 mg PO Q6H PRN PRN Reason: Pain, Mild 1-3,fever,headache Calcium Carbonate (Calcium Carbonate 750 Mg Tab.Chew) 750 mg PO Q4H PRN PRN Reason: Heartburn Ceftriaxone Sodium (Ceftriaxone Sodium 1 Gm Vial) 1 gm IVPUSH Q24H [facility] Escitalopram Oxalate (Escitalopram Oxalate 10 Mg Tablet) 10 mg PO DAILY [facility] Famotidine (Famotidine/Pf 20 Mg/2 Ml Vial) 20 mg IVPUSH BID [facility] Last Admin: 05/22/25 19:35 Dose: 20 mg Documented By: ELLIE Folic Acid (Folic Acid 1 Mg Tablet) 1 mg PO DAILY [facility] Stop: 05/26/25 08:59 Dextrose/Sodium Chloride (D5ns) 1,000 mls @ 100 mls/hr IVCONT .Q10H [facility] Last Admin: 05/22/25 22:27 Dose: 100 mls/hr Documented By: ELLIE Metronidazole (Flagyl) 500 mg in 100 mls @ 100 mls/hr IV Q8H [facility] Last Infusion: 05/23/25 04:03 Dose: Infused Documented By: ELLIE Magnesium Hydroxide (Milk Of Magnesia 30 Ml Oral.Susp) 30 ml PO DAILY PRN PRN Reason: Constipation Magnesium Oxide (Magnesium Oxide 400 Mg Tablet) 400 mg PO BIDPC [facility] Last Admin: 05/22/25 16:50 Dose: 400 mg Documented By: EUFEMIA Melatonin (Melatonin 3 Mg Tablet) 6 mg PO BEDTIME PRN PRN Reason: Insomnia Morphine Sulfate (Morphine Sulfate 2 Mg/Ml Cartridge) 2 mg IVPUSH Q4H PRN; Protocol PRN Reason: Pain, Severe (Pain Scale 7-10) Last Admin: 05/23/25 05:44 Dose: 2 mg Documented By: ELLIE Multivitamins/Vitamin C (Multivitamin Tablet) 1 tab PO DAILY [facility] Stop: 05/26/25 08:59 Ondansetron HCl (Ondansetron Hcl 4 Mg/2 Ml Vial) 4 mg IVPUSH Q8H PRN PRN Reason: Nausea and Vomiting Sodium Chloride (0.9 % Sodium Chloride Flush 3 Ml Syringe) 3 ml IVFLUSH QSHIFT [facility] Last Admin: 05/22/25 16:51 Dose: 3 ml Documented By: EUFEMIA Thiamine HCl (Thiamine Hcl 100 Mg Tablet) 100 mg PO DAILY [facility] Stop: 05/26/25 08:59 Labs 05/23/25 06:41 05/23/25 02:58 Labs: Laboratory Results - last 24 hr 05/22/25 05/22/25 05/22/25 06:45 10:51 11:43 MCV MCH MCHC RDW Plt Count MPV Absolute Nucleated RBC Nucleated RBC % (auto) PT 20.4 H D INR APTT Anion Gap Estim Creat Clear Calc Estimated GFR Random Glucose Lactic Acid Lactic Acid F/U @ 2Hr 4.4 H* Lactic Acid F/U @ 4Hr Calcium Magnesium 1.1 L* Total Bilirubin Direct Bilirubin AST ALT Alkaline Phosphatase Troponin I High Sens 4.4 Total Protein Albumin 05/22/25 05/22/25 05/22/25 11:43 11:43 11:43 MCV MCH MCHC RDW Plt Count MPV Absolute Nucleated RBC Nucleated RBC % (auto) PT Cancelled INR 1.8 H Cancelled APTT 31.3 Cancelled Anion Gap Estim Creat Clear Calc Estimated GFR Random Glucose Lactic Acid Lactic Acid F/U @ 2Hr Lactic Acid F/U @ 4Hr Calcium Magnesium Total Bilirubin Direct Bilirubin AST ALT Alkaline Phosphatase Troponin I High Sens Total Protein Albumin 05/22/25 05/22/25 05/22/25 13:00 15:10 17:36 MCV MCH MCHC RDW Plt Count MPV Absolute Nucleated RBC Nucleated RBC % (auto) PT INR APTT Anion Gap Estim Creat Clear Calc Estimated GFR Random Glucose Lactic Acid 4.9 H* Lactic Acid F/U @ 2Hr 4.6 H* Lactic Acid F/U @ 4Hr 4.5 H* Calcium Magnesium Total Bilirubin Direct Bilirubin AST ALT Alkaline Phosphatase Troponin I High Sens Total Protein Albumin 05/22/25 05/22/25 05/23/25 19:57 23:22 02:58 MCV MCH MCHC RDW Plt Count MPV Absolute Nucleated RBC Nucleated RBC % (auto) PT INR APTT Anion Gap 14 13 Estim Creat Clear Calc 337.6 365.0 Estimated GFR > 60 > 60 Random Glucose 95 93 Lactic Acid 4.9 H* Lactic Acid F/U @ 2Hr 3.4 H* Lactic Acid F/U @ 4Hr 7.3 H* Calcium 7.9 L D 7.7 L Magnesium Total Bilirubin Direct Bilirubin AST ALT Alkaline Phosphatase Troponin I High Sens Total Protein Albumin 05/23/25 06:41 MCV 94.5 MCH 34.8 H MCHC 36.8 H RDW Not Reportable Plt Count 141 L D MPV 9.7 Absolute Nucleated RBC 0.030 H Nucleated RBC % (auto) 0.3 H PT INR APTT Anion Gap Estim Creat Clear Calc Estimated GFR Random Glucose Lactic Acid Lactic Acid F/U @ 2Hr Lactic Acid F/U @ 4Hr 3.7 H* Calcium Magnesium Total Bilirubin 13.2 H Direct Bilirubin 9.1 H AST 223 H ALT 56 H Alkaline Phosphatase 365 H Troponin I High Sens Total Protein 5.0 L Albumin 2.3 L Procedures Date of Service Date of Service: 05/23/25 Progress Note: A&P Assessment and plan (1) Alcoholic cirrhosis: Status: Acute (2) Abdominal ascites: Status: Acute (3) Elevated liver enzymes: Status: Acute (4) Calculus of gallbladder with acute cholecystitis and obstruction: Status: Acute Plan 29-year-old male patient with cirrhosis due to ETOH abuse, extensive ascites noted by CT and ultrasound. Gallstones noted and gallbladder, possible cholecystitis. I requested HIDA scan to evaluate for acute cholecystitis, discussed with nuclear medicine and we will be performed today. Patient expressed understanding and agrees with the plan. Time Spent With Patient Time: Total time managing care of this patient today ____ minutes. Quality Stroke Does the patient have a stroke diagnosis?: No VTE Prior VTE?: No VTE Risk Level:: Medical - moderate - high VTE Device Contraindication: N/A - Device Ordered VTE Drug Contraindication: Treatment Not Indicated
--- NOTE | 2025-05-23 11:22 | HO.PM.IMPN ---
Subjective Subjective Date of Service: 05/25/25 Interval History: f/u on cholecystitis liver failure d/t alcoholims Physical Exam Vital Signs: Vital Signs: Last Vital Signs Temp 97.6 F 05/23/25 07:36 Pulse 99 05/23/25 07:36 Resp 18 05/23/25 07:36 BP 128/75 05/23/25 07:36 Pulse Ox 92 05/23/25 07:36 O2 Del Method Room Air 05/23/25 07:36 BMI result Body Mass Index 35.3 Objective Data Active Medications Acetaminophen (Acetaminophen 325 Mg Tablet) 650 mg PO Q6H PRN PRN Reason: Pain, Mild 1-3,fever,headache Calcium Carbonate (Calcium Carbonate 750 Mg Tab.Chew) 750 mg PO Q4H PRN PRN Reason: Heartburn Ceftriaxone Sodium (Ceftriaxone Sodium 1 Gm Vial) 1 gm IVPUSH Q24H [facility] Escitalopram Oxalate (Escitalopram Oxalate 10 Mg Tablet) 10 mg PO DAILY [facility] Famotidine (Famotidine/Pf 20 Mg/2 Ml Vial) 20 mg IVPUSH BID [facility] Last Admin: 05/22/25 19:35 Dose: 20 mg Documented By: ELLIE Folic Acid (Folic Acid 1 Mg Tablet) 1 mg PO DAILY [facility] Stop: 05/26/25 08:59 Dextrose/Sodium Chloride (D5ns) 1,000 mls @ 100 mls/hr IVCONT .Q10H [facility] Last Admin: 05/22/25 22:27 Dose: 100 mls/hr Documented By: ELLIE Metronidazole (Flagyl) 500 mg in 100 mls @ 100 mls/hr IV Q8H [facility] Last Infusion: 05/23/25 04:03 Dose: Infused Documented By: ELLIE Magnesium Hydroxide (Milk Of Magnesia 30 Ml Oral.Susp) 30 ml PO DAILY PRN PRN Reason: Constipation Magnesium Oxide (Magnesium Oxide 400 Mg Tablet) 400 mg PO BIDPC [facility] Last Admin: 05/22/25 16:50 Dose: 400 mg Documented By: JANELDONValentin Melatonin (Melatonin 3 Mg Tablet) 6 mg PO BEDTIME PRN PRN Reason: Insomnia Morphine Sulfate (Morphine Sulfate 2 Mg/Ml Cartridge) 2 mg IVPUSH Q4H PRN; Protocol PRN Reason: Pain, Severe (Pain Scale 7-10) Last Admin: 05/23/25 05:44 Dose: 2 mg Documented By: ELLIE Multivitamins/Vitamin C (Multivitamin Tablet) 1 tab PO DAILY [facility] Stop: 05/26/25 08:59 Ondansetron HCl (Ondansetron Hcl 4 Mg/2 Ml Vial) 4 mg IVPUSH Q8H PRN PRN Reason: Nausea and Vomiting Sodium Chloride (0.9 % Sodium Chloride Flush 3 Ml Syringe) 3 ml IVFLUSH QSHIFT [facility] Last Admin: 05/22/25 16:51 Dose: 3 ml Documented By: EUFEMIA Thiamine HCl (Thiamine Hcl 100 Mg Tablet) 100 mg PO DAILY [facility] Stop: 05/26/25 08:59 Labs 05/25/25 06:43 05/25/25 06:43 Labs: Laboratory Results - last 24 hr 05/22/25 05/22/25 05/22/25 06:45 10:51 11:43 MCV MCH MCHC RDW Plt Count MPV Absolute Nucleated RBC Nucleated RBC % (auto) PT 20.4 H D INR APTT Anion Gap Estim Creat Clear Calc Estimated GFR Random Glucose Lactic Acid Lactic Acid F/U @ 2Hr 4.4 H* Lactic Acid F/U @ 4Hr Calcium Magnesium 1.1 L* Total Bilirubin Direct Bilirubin AST ALT Alkaline Phosphatase Total Protein Albumin 05/22/25 05/22/25 05/22/25 11:43 11:43 11:43 MCV MCH MCHC RDW Plt Count MPV Absolute Nucleated RBC Nucleated RBC % (auto) PT Cancelled INR 1.8 H Cancelled APTT 31.3 Cancelled Anion Gap Estim Creat Clear Calc Estimated GFR Random Glucose Lactic Acid Lactic Acid F/U @ 2Hr Lactic Acid F/U @ 4Hr Calcium Magnesium Total Bilirubin Direct Bilirubin AST ALT Alkaline Phosphatase Total Protein Albumin 05/22/25 05/22/25 05/22/25 13:00 15:10 17:36 MCV MCH MCHC RDW Plt Count MPV Absolute Nucleated RBC Nucleated RBC % (auto) PT INR APTT Anion Gap Estim Creat Clear Calc Estimated GFR Random Glucose Lactic Acid 4.9 H* Lactic Acid F/U @ 2Hr 4.6 H* Lactic Acid F/U @ 4Hr 4.5 H* Calcium Magnesium Total Bilirubin Direct Bilirubin AST ALT Alkaline Phosphatase Total Protein Albumin 05/22/25 05/22/25 05/23/25 19:57 23:22 02:58 MCV MCH MCHC RDW Plt Count MPV Absolute Nucleated RBC Nucleated RBC % (auto) PT INR APTT Anion Gap 14 13 Estim Creat Clear Calc 337.6 365.0 Estimated GFR > 60 > 60 Random Glucose 95 93 Lactic Acid 4.9 H* Lactic Acid F/U @ 2Hr 3.4 H* Lactic Acid F/U @ 4Hr 7.3 H* Calcium 7.9 L D 7.7 L Magnesium Total Bilirubin Direct Bilirubin AST ALT Alkaline Phosphatase Total Protein Albumin 05/23/25 06:41 MCV 94.5 MCH 34.8 H MCHC 36.8 H RDW Not Reportable Plt Count 141 L D MPV 9.7 Absolute Nucleated RBC 0.030 H Nucleated RBC % (auto) 0.3 H PT INR APTT Anion Gap Estim Creat Clear Calc Estimated GFR Random Glucose Lactic Acid Lactic Acid F/U @ 2Hr Lactic Acid F/U @ 4Hr 3.7 H* Calcium Magnesium Total Bilirubin 13.2 H Direct Bilirubin 9.1 H AST 223 H ALT 56 H Alkaline Phosphatase 365 H Total Protein 5.0 L Albumin 2.3 L Microbiology Microbiology Results: Microbiology 05/22/25 07:58 Blood Culture - Preliminary Blood - Venous No growth after 24 hours. 05/22/25 07:58 Blood Culture - Preliminary Blood - Venous No growth after 24 hours. Assessment and Plan (1) Elevated liver enzymes: Status: Acute Plan 29 year old man admitted for acute kaitlynn, liver cirrhosis with history of drinking vodka daily. ?Acute cholecystitis IV Abx HIDA has ruled out cholecysitis Surgery following Liver cirrhosis secondary to alcohol abuse with concern for withdrawal Secondary to transaminitis we will hold off on phenobarbital Follow CIWA scale for now with medication coverage as needed GI consultation> likely alcoholic hepatitis, get abd us, diagnostic tap and cxr MELD score 26 Multivitamin, thiamine, folic acid Transaminitis Total bili 13.4, AST 284, ALT 77, lactate 459 Secondary to alcohol abuse, liver cirrhosis Monitor -Seen GI with the following Patient presenting with 2 weeks of diffuse abdominal pain with vomiting and worsening jaundice. Found to have possible alcoholic hepatitis with underlying cirrhosis, ascites and question of cholecystitis. Clinically, does not appear to have acute cholecystitis, but HIDA scan is pending. Reviewed with the patient, that given ongoing liver injury, sometimes HIDA can be nondiagnostic but will review results. Appreciate recommendations from surgery. From liver standpoint, as alcoholic hepatitis in the background of cirrhosis. Accurate assessment of underlying liver function to be made after resolution of alcoholic hepatitis in complete sobriety from alcohol for at least 3-6 months. Unfortunately, patient has had multiple relapses in the past, and remains at risk for future relapse. Plan: - Hep serologies pending - Daily MELD labs - If HIDA neg, resume diet. Encourage protein intake - at least 1.2-1.5g/kg of protein intake. (mortality benefit) - Diagnostic paracentesis to r/o SBP - If SBP negative, start prednisolone 40 mg once daily - Obtain Lille score on day 4 or 7 to assess response - Addiction med consultation when pt able to participate - Outpatient GI follow up will also be scheduled for longitudinal cirrhosis care Hypomagnesemia replate with IV and oral recheck Leukocytosis Likely secondary to acute cholecystitis Continue antibiotics Lactic acidosis Likely secondary to liver cirrhosis trending down, stop checking Mental health Continue citalopram DVT prophylaxis with pneumatic compression boots Full code Thank you for allowing me to participate in his care. Please do not hesitate to reach out for any questions or concerns. Quality Stroke Does the patient have a stroke diagnosis?: No VTE Prior VTE?: No VTE Risk Level:: Medical - moderate - high VTE Device Contraindication: N/A - Device Ordered VTE Drug Contraindication: Treatment Not Indicated
[2025-05-23] MEDS: 0.9 % Sodium Chloride Flush 3 ML SYRINGE IVFLUSH ×2 (11:41→16:38)
[2025-05-23 11:49] LABS: Magnesium 1.4 mg/dL (1.6-2.6)
[2025-05-23] MEDS: Magnesium Sulfate/H2O 2 GM/50 ML PIGGYBACK IV (12:01)
--- NOTE | 2025-05-23 14:31 | MHC.CM.PN ---
THIS CM MET WITH PT, HE REPORTS BEING SELF-CARE, AND LIVES AT HOME WITH HIS GIRLFRIEND, FATHER, AND GRANDMOTHER. PT WILL ARRANGE HIS OWN TRANSPORT HOME AT DISCHARGE. EDUCATION PROVIDED ON HCP, PT DECLINES TO COMPLETE ONE AT THIS TIME. DCP: RETURN HOME SELF-CARE VIA SELF-ARRANGED TRANSPORT. PCP: DR. GREGORY VERA
[2025-05-24] VITALS (9 sets, daily range): BP systolic 119–135; BP diastolic 57–84; PULSE 91–110; RESP 16–20; TEMP 36.1–37.1; O2SAT 94–97
[2025-05-24] MEDS: 0.9 % Sodium Chloride Flush 3 ML SYRINGE IVFLUSH ×4 (00:15→19:51)
[2025-05-24] MEDS: metroNIDAZOLE/NS 500 MG/100 ML PIGGYBACK 100 MG IV ×3 (03:47→19:51)
[2025-05-24 05:01] LABS: HBS Num1 4.21 mIU/mL (0-7.99); HBc Num1 0.11 S/CO (0.00-0.79); Hepatitis A Antibody IgM 0.17 Index (0-0.79); ~HepC Num1 0.17 S/CO (0.00-0.79); ~Hepatitis A Antibody IgM Nonreactive (Nonreactive); ~Hepatitis B Surface Antibody NONREACTIVE (Nonreactive); ~Hepatitis C Antibody Nonreactive (Nonreactive)
[2025-05-24 05:23] LABS: HBsAGNum1 0.61 S/CO (0.00-0.99); Hepatitis B Surface Antigen Negative (Negative)
--- NOTE | 2025-05-24 08:04 | P.PNGS_ITS ---
Subjective Subjective Date of Service: 05/24/25 <Camila Pérez PA-C - Last Filed: 05/24/25 08:07> 05/24/25 <Jaron Osorio MD - Last Filed: 05/24/25 08:52> Interval history: Continues to complain of abdominal pain, not significantly improved but was able to tolerate solid diet yesterday. <Camila Pérez PA-C - Last Filed: 05/24/25 08:07> Physical Exam 2 Vital Signs: Vital Signs: Last Vital Signs Temp 97.6 F 05/24/25 07:13 Pulse 102 H 05/24/25 07:13 Resp 18 05/24/25 07:13 BP 129/62 05/24/25 07:13 Pulse Ox 97 05/24/25 07:13 O2 Del Method Room Air 05/24/25 07:13 BMI result Body Mass Index 35.3 <Camila Pérez PA-C - Last Filed: 05/24/25 08:07> Const: General: comfortable, no acute distress and alert <Camila Pérez PA-C - Last Filed: 05/24/25 08:07> Orientation/consciousness: patient oriented x3 <Camila Pérez PA-C - Last Filed: 05/24/25 08:07> Eyes: Sclerae: scleral abnormal (icteric) <Camila Pérez PA-C - Last Filed: 05/24/25 08:07> Resp: Effort & Inspection: normal respiratory effort <Camila Pérez PA-C - Last Filed: 05/24/25 08:07> GI: Other: markedly corpulent abdomen tender on the right abdomen <Camila Pérez PA-C - Last Filed: 05/24/25 08:07> Skin: General skin exam: jaundice <CHARLOTTE Rodriguez Last Filed: 05/24/25 08:07> Neuro: General: patient oriented x3 <CHARLOTTE Rodriguez Last Filed: 05/24/25 08:07> Objective Data Active Medications Acetaminophen (Acetaminophen 325 Mg Tablet) 650 mg PO Q6H PRN PRN Reason: Pain, Mild 1-3,fever,headache Calcium Carbonate (Calcium Carbonate 750 Mg Tab.Chew) 750 mg PO Q4H PRN PRN Reason: Heartburn Ceftriaxone Sodium (Ceftriaxone Sodium 1 Gm Vial) 1 gm IVPUSH Q24H [facility] Last Admin: 05/23/25 11:41 Dose: 1 gm Documented By: RAF Escitalopram Oxalate (Escitalopram Oxalate 10 Mg Tablet) 10 mg PO DAILY [facility] Last Admin: 05/23/25 11:41 Dose: 10 mg Documented By: RAF Famotidine (Famotidine/Pf 20 Mg/2 Ml Vial) 20 mg IVPUSH BID [facility] Last Admin: 05/23/25 21:03 Dose: 20 mg Documented By: JIMMY Folic Acid (Folic Acid 1 Mg Tablet) 1 mg PO DAILY [facility] Stop: 05/26/25 08:59 Last Admin: 05/23/25 11:41 Dose: 1 mg Documented By: RAF Dextrose/Sodium Chloride (D5ns) 1,000 mls @ 100 mls/hr IVCONT .Q10H [facility] Last Admin: 05/24/25 03:48 Dose: 100 mls/hr Documented By: JIMMY Metronidazole (Flagyl) 500 mg in 100 mls @ 100 mls/hr IV Q8H [facility] Last Infusion: 05/24/25 05:20 Dose: Infused Documented By: JIMMY Magnesium Hydroxide (Milk Of Magnesia 30 Ml Oral.Susp) 30 ml PO DAILY PRN PRN Reason: Constipation Magnesium Oxide (Magnesium Oxide 400 Mg Tablet) 400 mg PO BIDPC [facility] Last Admin: 05/23/25 16:37 Dose: 400 mg Documented By: RAF Melatonin (Melatonin 3 Mg Tablet) 6 mg PO BEDTIME PRN PRN Reason: Insomnia Last Admin: 05/23/25 21:03 Dose: 6 mg Documented By: JIMMY Morphine Sulfate (Morphine Sulfate 2 Mg/Ml Cartridge) 2 mg IVPUSH Q4H PRN; Protocol PRN Reason: Pain, Severe (Pain Scale 7-10) Last Admin: 05/23/25 19:23 Dose: 2 mg Documented By: JIMMY Multivitamins/Vitamin C (Multivitamin Tablet) 1 tab PO DAILY [facility] Stop: 05/26/25 08:59 Last Admin: 05/23/25 11:41 Dose: 1 tab Documented By: RAF Ondansetron HCl (Ondansetron Hcl 4 Mg/2 Ml Vial) 4 mg IVPUSH Q8H PRN PRN Reason: Nausea and Vomiting Sodium Chloride (0.9 % Sodium Chloride Flush 3 Ml Syringe) 3 ml IVFLUSH QSHIFT [facility] Last Admin: 05/24/25 00:15 Dose: 3 ml Documented By: JIMMY Thiamine HCl (Thiamine Hcl 100 Mg Tablet) 100 mg PO DAILY [facility] Stop: 05/26/25 08:59 Last Admin: 05/23/25 11:41 Dose: 100 mg Documented By: RAF <Camila Pérez PA-C - Last Filed: 05/24/25 08:07> Labs CBC & Chem 7: 05/23/25 06:41 05/23/25 02:58 <Camila Pérez PA-C - Last Filed: 05/24/25 08:07> Labs: Laboratory Results - last 24 hr 05/23/25 05/23/25 02:58 06:41 Magnesium 1.4 L* Hepatitis A IgM Ab Nonreactive Hep Bs Antigen Negative Hep Bs Antibody NONREACTIVE Hep B Core Total Ab Nonreactive Hepatitis C Ab (EIA) Nonreactive <Camila Pérez PA-C - Last Filed: 05/24/25 08:07> Microbiology Microbiology Results: Microbiology 05/22/25 07:58 Blood Culture - Preliminary Blood - Venous No growth after 24 hours. 05/22/25 07:58 Blood Culture - Preliminary Blood - Venous No growth after 24 hours. <Camila Pérez PA-C - Last Filed: 05/24/25 08:07> Procedures Date of Service Date of Service: 05/24/25 <Camila Pérez PA-C - Last Filed: 05/24/25 08:07> 05/24/25 <Jaron Osorio MD - Last Filed: 05/24/25 08:52> Progress Note: A&P Assessment and plan (1) Alcoholic hepatitis with ascites: Status: Acute <Camila Pérez PA-C - Last Filed: 05/24/25 08:07> Assessment and Plan: HIDA shows filling of the gallbladder, going against acute cholecystitis however hepatic uptake retention consistent with hepatic dysfunction and known hepatitis. Discussed this with the patient. Advance diet as tolerated. Will sign off for now, please reconsult with changes. <Camila Pérez PA-C - Last Filed: 05/24/25 08:07> HIDA shows filling of the gallbladder, going against acute cholecystitis however hepatic uptake retention consistent with hepatic dysfunction and known hepatitis. Discussed this with the patient. Advance diet as tolerated. Will sign off for now, please reconsult with changes. Patient seen and examined, HIDA scan reviewed as well. Agree with the above assessment and plan. No surgical intervention anticipated. <Jaron Osorio MD - Last Filed: 05/24/25 08:52> Time Spent With Patient Time: Total time managing care of this patient today ____ minutes. <Camila Pérez PA-C - Last Filed: 05/24/25 08:07> Quality Stroke Does the patient have a stroke diagnosis?: No <Camila Pérez PA-C - Last Filed: 05/24/25 08:07> VTE Prior VTE?: No <Camila Pérez PA-C - Last Filed: 05/24/25 08:07> VTE Risk Level:: Medical - moderate - high <Camila Pérez PA-C - Last Filed: 05/24/25 08:07> VTE Device Contraindication: N/A - Device Ordered <Camila Pérez PA-C - Last Filed: 05/24/25 08:07> VTE Drug Contraindication: Treatment Not Indicated <Camila Pérez PA-C - Last Filed: 05/24/25 08:07>
[2025-05-24] MEDS: Lidocaine HCl 1 % MPF 5 ML VIAL SUBCUT (10:59)
[2025-05-24 11:27] LABS: MN% 71.3 %; PMN% 28.7 %; WBC Peritoneal Fluid 0.107 X10*3/uL
[2025-05-24 12:50] LABS: BF Shift QC OK YES; Lymphocyte Peritoneal Fl 32 %; Monocytes Peritoneal Fl 16 %; Neutrophils Peritoneal Fluid 28 %; Other Peritioneal Fl 24 %
--- NOTE | 2025-05-24 15:43 | P.PNGI_ITS ---
Subjective Subjective Date of Service: 05/24/25 Interval History: Pt seen and evaluated at bedside. Father present as well but pt requested him to step outside for the encounter. Reports improvement in abd pain since the paracentesis. Labs reviewed, no SBP. Critical Care Time (minutes): 0 Physical Exam 2 Exam: Exam: grossly jaundiced no acute distress abd soft, mildly tender, distended a/ox3, no asterixis Vital Signs: Vital Signs: Last Vital Signs Temp 98.7 F 05/24/25 11:55 Pulse 91 05/24/25 11:55 Resp 18 05/24/25 11:55 BP 121/60 05/24/25 11:55 Pulse Ox 95 05/24/25 11:55 O2 Del Method Room Air 05/24/25 11:55 BMI result Body Mass Index 35.3 Objective Data Labs 05/23/25 06:41 05/23/25 02:58 Labs: Laboratory Results - last 24 hr 05/23/25 05/24/25 06:41 10:30 Peritoneal WBC 0.107 Peritoneal RBC < 0.002 Periton Neutrophils 28 Periton Lymphocytes 32 Peritoneal Monocytes 16 Peritoneal Other Cells 24 Hepatitis A IgM Ab Nonreactive Hep Bs Antigen Negative Hep Bs Antibody NONREACTIVE Hep B Core Total Ab Nonreactive Hepatitis C Ab (EIA) Nonreactive Microbiology Microbiology Results: Microbiology 05/22/25 07:58 Blood - Venous Blood Culture - Preliminary No growth after 48 hours. 05/22/25 07:58 Blood - Venous Blood Culture - Preliminary No growth after 48 hours. Procedures Date of Service Date of Service: 05/24/25 Progress Note: A&P Assessment and plan (1) Cirrhosis: Status: Acute (2) Abdominal ascites: Status: Acute (3) Elevated liver enzymes: Status: Acute (4) Alcoholic hepatitis with ascites: Status: Acute Plan MDF 59.4 MELD Na 24 HIDA negative. Ascitic fluid neg for SBP. SAAG pending. Plan: - Start prednisolone 40 mg once daily. Can be discharged on prednisone 40 if prednisoLONE not available at outpt pharmacy. - Start spironolactone 100 mg once daily. Check BMP tmrw. - Pt will need repeat CBC and CMP day 4 of pred i.e on 05/28 - No clear indication for Abx at this time from GI standpoint. - Outpt follow up will be set up Time Spent With Patient Time: Total time managing care of this patient today ____ minutes. Quality Stroke Does the patient have a stroke diagnosis?: No VTE Prior VTE?: No VTE Risk Level:: Medical - moderate - high VTE Device Contraindication: N/A - Device Ordered VTE Drug Contraindication: Treatment Not Indicated
[2025-05-24 16:31] LABS: INTERNATIONAL NORM RATIO 2.0 (0.9-1.1); Prothrombin Time 22.5 SEC (10.9-12.4)
[2025-05-24 16:36] LABS: Hematocrit 27.7 % (42.0-52.0); Hemoglobin 10.2 g/dl (14.0-18.0); Mean Corpuscular HGB Conc 36.8 g/dl (31.0-36.0); Mean Corpuscular Hemoglobin 35.4 pg (27.0-33.0); Mean Corpuscular Volume 96.2 fL (80.0-98.0); NRBC Abs Auto 0.040 X10*3/uL (0.0-0.012); NRBC Pct Auto 0.4 /100WBC (0.0-0.2); Platelet Count 172 X10*3/uL (160-400); Red Blood Count 2.88 X10*6/uL (4.60-5.80); White Blood Count 10.6 X10*3/uL (4.8-10.8)
[2025-05-24 16:39] LABS: Alanine Aminotransferase 62 U/L (0-40); Albumin Level 2.5 g/dL (3.5-5.0); Alkaline Phosphatase 368 U/L (39-117); Anion Gap 13 (12-20); Aspartate Amino Transferase 250 U/L (5-37); Blood Urea Nitrogen 6 mg/dL (9-16); Calcium 7.0 mg/dL (8.4-10.2); Carbon Dioxide 27 mmol/L (22-29); Chloride 101 mmol/L (96-108); Creatinine Clr Calc Pharmacy 375.1; Estimated Glomerular Filt Rate > 60; Potassium 3.1 mmol/L (3.3-5.1); Sodium 138 mmol/L (135-145); Total Protein 5.7 g/dL (6.5-8.0)
[2025-05-24 18:48] LABS: Band Neutrophils Percent 2 % (3-5); Eosinophils Absolute Manual 0.1 X10*3/uL (0.0-0.4); Eosinophils Percent Manual 1 % (0-4); Lymphocytes Absolute Manual 1.2 X10*3/uL (1.2-4.9); Lymphocytes Percent Manual 11 % (20-40); Monocytes Absolute Manual 0.7 X10*3/uL (0.1-1.2); Monocytes Percent Manual 7 % (2-11); Neutrophils Absolute Manual 8.6 X10*3/uL (2.0-8.3); Neutrophils Percent Manual 79 % (45-73)
[2025-05-24 18:49] LABS: RBC Morphology NOTED; Target Cells 1+ (5-14) /OIF
[2025-05-24 18:51] LABS: Polychromasia 1+ (0-2) /OIF
[2025-05-25] MEDS: Magnesium Sulfate/H2O 2 GM/50 ML PIGGYBACK IV (01:38)
[2025-05-25 03:32] VITALS: BP 136/73; PULSE 96; RESP 16; TEMP 36.4; O2SAT 98
[2025-05-25] MEDS: metroNIDAZOLE/NS 500 MG/100 ML PIGGYBACK 100 MG IV (04:34)
[2025-05-25 06:52] LABS: MANUAL DIFF FLAG NO
[2025-05-25 07:11] LABS: Alanine Aminotransferase 60 U/L (0-40); Albumin Level 2.4 g/dL (3.5-5.0); Alkaline Phosphatase 344 U/L (39-117); Anion Gap 11 (12-20); Aspartate Amino Transferase 248 U/L (5-37); Blood Urea Nitrogen 6 mg/dL (9-16); Calcium 6.9 mg/dL (8.4-10.2); Carbon Dioxide 29 mmol/L (22-29); Chloride 100 mmol/L (96-108); Creatinine Clr Calc Pharmacy 385.8; Estimated Glomerular Filt Rate > 60; Magnesium 2.1 mg/dL (1.6-2.6); Potassium 3.0 mmol/L (3.3-5.1); Sodium 137 mmol/L (135-145); Total Protein 5.5 g/dL (6.5-8.0)
[2025-05-25 07:17] VITALS: BP 135/78; PULSE 109; RESP 18; TEMP 36.3; O2SAT 96
[2025-05-25 07:18] LABS: Hematocrit 27.8 % (42.0-52.0); Hemoglobin 10.4 g/dl (14.0-18.0); Imm Gran Abs Auto 0.11 X10*3/uL (0.00-0.03); Imm Gran Pct Auto 1.1 % (0.0-0.4); Lymphocytes Absolute Auto 1.5 X10*3/uL (1.2-4.9); Mean Corpuscular HGB Conc 37.4 g/dl (31.0-36.0); Mean Corpuscular Hemoglobin 36.0 pg (27.0-33.0); Mean Corpuscular Volume 96.2 fL (80.0-98.0); NRBC Abs Auto 0.040 X10*3/uL (0.0-0.012); NRBC Pct Auto 0.4 /100WBC (0.0-0.2); Platelet Count 143 X10*3/uL (160-400); Red Blood Count 2.89 X10*6/uL (4.60-5.80); White Blood Count 10.1 X10*3/uL (4.8-10.8)
[2025-05-25 07:20] LABS: Albumin Peritoneal Fluid 0.3
--- NOTE | 2025-05-25 07:22 | HE.PHANOTE ---
Metronidazole iv to po conversion Per protocol patient meets criteria for iv to po switch. Next dose of 500mg q 8h@ 1200 09/30
[2025-05-25] MEDS: 0.9 % Sodium Chloride Flush 3 ML SYRINGE IVFLUSH (09:21)
[2025-05-25 11:17] VITALS: BP 137/90; PULSE 100; RESP 18; TEMP 36.3; O2SAT 94
--- NOTE | 2025-05-25 12:32 | PM.DS ---
DS: Providers Provider Date of Service: 05/25/25 Date of admission: 05/22/25 10:36 Date of discharge: 05/25/25 Primary care physician: Miguel Rebolledo MD Consults: 05/22/25 11:30 Consult to Gastroenterology Routine Consulting Provider: [facility] Reason for consultation: Acute on chronic liver cirrhosis Consult to General Surgery Routine Consulting Provider: [facility] Reason for consultation: Acute kaitlynn 05/22/25 13:49 Addiction Medicine Provider Routine Consulting Provider: Addiction Covering Reason for consultation: Alcohol use Has provider been notified: Yes DS: Diagnosis Discharge Diagnosis (1) Elevated liver enzymes: Status: Acute DS: Summary Hospital Course Hospital Course: Admission hpi Chief Complaint: abd pain Year old man presenting to the ER with abdominal pain for the last 2 days and a possible 20 lb weight loss over the last 2 weeks. Patient had initially reported that he had not been drinking alcohol for 2 weeks but after further discussion he reported that he has been drinking a handle of vodka a day. He describes the abdominal pain as constant pressure-like pain towards the right upper quadrant and lower abdomen. He reported that the right side of his abdomen has been feeling distended but actually had felt better today. He reported that his urine had been very dark and orange like and noticed the discoloration in his skin. He denied fever, chills, nausea, vomiting, diarrhea. In the ER, abdominal and pelvic CT showed cirrhotic appearing liver with new moderate volume ascites, distended gallbladder with stones in the region of the gallbladder neck and pancreatic stranding with diffuse ascites. His blood pressure was noted to be in the higher side, mildly tachycardic, initial lactic acid of 5.1, total bilirubin of 13.4, AST 284, ALT 77, alk phos 479, LDH 459. Plan will be to admit patient for further management and treatment of acute cholecystitis, liver cirrhosis and possible pancreatitis Hospital course 29 year old man admitted for acute kaitlynn, liver cirrhosis with history of drinking vodka daily, he presented with abdominal pain. Initially thought to have acute cholecysitis and treated with Abx, however HiDA showed no evience of cholecystisi. Likely had pain from acute on chronic liver failure. Seen by GI with the following recommendation: MDF 59.4 MELD 24 - Start prednisolone 40 mg once daily. Can be discharged on prednisone 40 if prednisoLONE not available at outpt pharmacy. - Start spironolactone 100 mg once daily. Check BMP tmrw. - Pt will need repeat CBC and CMP day 4 of pred i.e on 05/28 - No clear indication for Abx at this time from GI standpoint. - Outpt follow up will be set up Will prescribe Prednisone 40 for 28 with a 2 weeks dillon and outpatient follow up Hypomagnesemia replate with IV and oral and corrected Leukocytosis, likely reactive due to liver disease Lactic acidosis Likely secondary to liver cirrhosis trending down, stop checking Mental health Continue citalopram Time Attestation Discharge Coordination Time (in mins): 40 Quality: Safe Use of Opioids Does Pt have an Active Cancer Diagnosis on the Problem List?: No Quality: Stroke Does the patient have a stroke diagnosis?: No Physical Exam Vital Signs: Vital Signs: Last Vital Signs Temp 97.3 F 05/25/25 11:17 Pulse 100 05/25/25 11:17 Resp 18 05/25/25 11:17 BP 137/90 H 05/25/25 11:17 Pulse Ox 94 05/25/25 11:17 O2 Del Method Room Air 05/25/25 11:17 BMI result Body Mass Index 35.3 DS: Data Data Completed and Pending Completed studies during hospitalization [Text1]: Procedures Detoxification Services for Substance Abuse Treatment (08/05/24) Pending studies at discharge: Pending at discharge 05/22/25 13:08 Cytology [PTH] Routine Labs on day of discharge: Laboratory Results - last 24 hr 05/24/25 05/24/25 05/25/25 10:30 16:13 06:43 WBC 10.6 10.1 RBC 2.88 L 2.89 L Hgb 10.2 L 10.4 L Hct 27.7 L 27.8 L MCV 96.2 96.2 MCH 35.4 H 36.0 H MCHC 36.8 H 37.4 H RDW Not Reportable Not Reportable Plt Count 172 143 L MPV 9.6 9.4 Immature Gran % (Auto) Cancelled 1.1 H Neut % (Auto) Cancelled 69.0 Lymph % (Auto) Cancelled 15.1 L [place] % (Auto) Cancelled 13.2 H Eos % (Auto) Cancelled 1.1 Baso % (Auto) Cancelled 0.5 Lymph # (Auto) Cancelled 1.5 [place] # (Auto) Cancelled 1.3 H Eos # (Auto) Cancelled 0.1 Baso # (Auto) Cancelled 0.1 Abs Immat Gran (auto) Cancelled 0.11 H Absolute Neuts (auto) Cancelled 7.0 Absolute Nucleated RBC 0.040 H 0.040 H Nucleated RBC % (auto) 0.4 H 0.4 H Neutrophils % (Manual) 79 H Band Neutrophils % 2 L Lymphocytes % (Manual) 11 L Monocytes % (Manual) 7 Eosinophils % (Manual) 1 Abs Neuts (Manual) 8.6 H Lymphocytes # (Manual) 1.2 Monocytes # (Manual) 0.7 Eosinophils # (Manual) 0.1 Platelet Estimate NORMAL Plt Morphology Comment NORMAL RBC Morphology NOTED Polychromasia 1+ (0-2) Target Cells 1+ (5-14) PT 22.5 H INR 2.0 H Sodium 138 137 Potassium 3.1 L 3.0 L Chloride 101 100 Carbon Dioxide 27 29 Anion Gap 13 11 L BUN 6 L 6 L Creatinine 0.36 L 0.35 L Estim Creat Clear Calc 375.1 385.8 Estimated GFR > 60 > 60 Random Glucose 104 92 Calcium 7.0 L D 6.9 L Magnesium 2.1 Total Bilirubin 17.9 H 16.9 H AST 250 H 248 H ALT 62 H 60 H Alkaline Phosphatase 368 H 344 H Total Protein 5.7 L 5.5 L Albumin 2.5 L 2.4 L Periton Neutrophils 28 Periton Lymphocytes 32 Peritoneal Monocytes 16 Peritoneal Other Cells 24 Peritoneal Tot Protein 0.4 Peritoneal Albumin 0.3 Peritoneal LDH 56 Peritoneal Glucose 111 Preliminary micro results at discharge 05/22/25 07:58 Blood Culture - Preliminary Blood - Venous No growth after 48 hours. 05/22/25 07:58 Blood Culture - Preliminary Blood - Venous No growth after 48 hours. Discharge Plan Discharge Anticipated Discharge Date/Time: 05/25/25 12:33 Patient Disposition: Home, Self-Care Discharge Diagnosis: liver failure Referrals: Miguel Rebolledo MD [Primary Care Provider, Internal Medicine] - 1 Week Discharge Medications: Continued magnesium oxide 400 mg (241.3 mg magnesium) tablet 400 mg PO DAILY 30 Days Qty: 30 3RF citalopram 20 mg tablet 20 mg PO DAILY 30 Days Qty: 30 3RF famotidine 40 mg tablet 40 mg PO DAILY 90 Days Qty: 90 3RF multivitamin Tablet 1 tab PO DAILY thiamine HCl (vitamin B1) [Vitamin B-1] 100 mg tablet 100 mg PO DAILY cholecalciferol (vitamin D3) 50 mcg (2,000 unit) capsule 50 mcg PO DAILY cyanocobalamin (vitamin B-12) [Vitamin B-12] 1,000 mcg Tablet 1,000 mcg PO DAILY Patient Comments: Patient claims generally buys and takes OTC. ibuprofen 200 mg Tablet 400 mg PO Q8H PRN (Reason: Pain (Scale Score 4-6)) atomoxetine 10 mg Capsule 40 mg PO DAILY naltrexone 50 mg tablet 50 mg PO DAILY 30 Days Qty: 30 2RF acamprosate 333 mg tablet,delayed release (DR/EC) 333 mg PO BID 60 Days Qty: 120 2RF Patient Comments: Patient states he took morning dose, but could not remember if he took evening dose. Rx Instructions: administer with mid-day and evening meals Diet: Advance to usual diet Activity on Discharge: As tolerated Stand Alone Forms: Patient Portal Discharge page Print Language: Maori Care Plan Goals: reocovery from liver failure Health Concerns: liver failure alcoholism Plan of Treatment: take Prednisone as directed and follow up with your Doctor in a week Assessment: see above
--- NOTE | 2025-05-25 13:12 | MHC.CM.PN ---
Patient has been medically cleared for dc to home today, self care.
--- NOTE | 2025-05-25 17:27 | P.CDIM_ITS ---
PROVIDER RESPONSE TEXT: To clarify, the appropriate diagnosis supported by the clinical indicators: Acute QUERY TEXT: PHYSICIAN'S DOCUMENTATION REQUEST Date of Query: 05/25/2025 07:38 AM EDT Patient Name: Tab Morejon Admit Date: 05/22/2025 Dear Robb Denton MD, A review of the medical record indicates additional documentation may be needed. Please review below and update the documentation accordingly. Clinical Indicators: Progress note 05/24/25 - Lactic acidosis Likely secondary to liver cirrhosis Clarify which of the following accurately represents the acuity of the Lactic acidosis: Possible options might include: Acute Chronic Other specified Other (explain) Clinically unable to determine (explain) Thank you, Marilee Jade, CCS, CDIS Use of terms such as suspected, likely, concern for, or probable (associated with a specific diagnosis that is being evaluated, monitored, or treated as if it exists) are acceptable and can be coded in the inpatient setting, when documented at the time of discharge. Please use your independent medical judgment in providing your response. THIS QUERY IS PART OF THE PERMANENT MEDICAL RECORD
== END 2025-05-25 13:57 | disposition home or self-care (01) | DRG 280 ==
LOC: HO.ED 10:17 → HO.EDOVER 10:55 → HO.IMC 11:52
PROVIDERS: Hospitalist; Internal Medicine; Admitting Provider Nurse Practitioner Acute Care; Emergency Provider Emergency Medicine Emergency Medical Services; PCP Family Medicine; Visit Provider Internal Medicine
DX: K70.31 Alcoholic cirrhosis of liver with ascites (principal); K70.11 Alcoholic hepatitis with ascites; K80.00 Calculus of gallbladder with acute cholecystitis without obstruction; E87.21 Acute metabolic acidosis; E83.42 Hypomagnesemia; F10.20 Alcohol dependence, uncomplicated; Y90.4 Blood alcohol level of 80-99 mg/100 ml; Z98.84 Bariatric surgery status; Z79.899 Other long term (current) drug therapy
CPT/HCPCS: 36415; 49083; 71045; 74177; 76700; 78226; 80048; 80053; 80076; 80307; 82042; 82248; 82945; 82947; 83605; 83615; 83690; 83735; 84157; 84484; 85007; 85025; 85027; 85610; 85730; 86704; 86706; 86709; 86803; 86850; 86900; 86901; 87040; 87116; 87206; 87340; 88112; 89051; 93005; 99285; A9537; J0696; J1200; J1308; J1836; J2003; J2270; J2765; J3411; J3475; J7120; Q9967; S9485

== ENCOUNTER → 2025-05-22 06:30 | Outpatient (BNV) | payer OTHER, SELFPAY | PROVIDERS: Emergency Provider Emergency Medicine Emergency Medical Services; PCP Family Medicine; Visit Provider Surgery | DX: K70.31 Alcoholic cirrhosis of liver with ascites (principal); R74.8 Abnormal levels of other serum enzymes; K80.01 Calculus of gallbladder with acute cholecystitis with obstruction | CPT/HCPCS: 99222; 99232 ==

== ENCOUNTER → 2025-05-22 06:51 | Outpatient (BNV) | payer OTHER, SELFPAY | PROVIDERS: Admitting Provider Nurse Practitioner Acute Care; Emergency Provider Emergency Medicine Emergency Medical Services; PCP Family Medicine; Visit Provider Internal Medicine Cardiovascular Disease | DX: R00.0 Tachycardia, unspecified (principal) | CPT/HCPCS: 93010 ==

== ENCOUNTER → 2025-05-22 07:09 | Outpatient (BNV) | payer OTHER, SELFPAY | PROVIDERS: Emergency Provider Emergency Medicine Emergency Medical Services; PCP Family Medicine; Visit Provider Radiology Vascular & Interventional Radiology | DX: K74.69 Other cirrhosis of liver (principal); R18.8 Other ascites; R91.8 Other nonspecific abnormal finding of lung field | CPT/HCPCS: 71045; 74177 ==

== ENCOUNTER 2025-05-22 10:36 | Outpatient (BNV) | payer OTHER, SELFPAY | END 2025-05-23 08:05 | PROVIDERS: Admitting Provider Nurse Practitioner Acute Care; Emergency Provider Emergency Medicine Emergency Medical Services; PCP Family Medicine; Visit Provider Radiology Vascular & Interventional Radiology | DX: K70.11 Alcoholic hepatitis with ascites (principal); R16.0 Hepatomegaly, not elsewhere classified; K80.20 Calculus of gallbladder without cholecystitis without obstruction | CPT/HCPCS: 76700; 78226 ==

== ENCOUNTER 2025-05-22 10:36 | Outpatient (BNV) | payer OTHER, SELFPAY | END 2025-05-24 10:00 | PROVIDERS: Admitting Provider Nurse Practitioner Acute Care; Emergency Provider Emergency Medicine Emergency Medical Services; PCP Family Medicine; Visit Provider Radiology Diagnostic Radiology | DX: K70.10 Alcoholic hepatitis without ascites (principal); R18.8 Other ascites | CPT/HCPCS: 49083 ==

== ENCOUNTER → 2025-05-22 10:36 | Outpatient (BNV) | payer OTHER, SELFPAY | PROVIDERS: Admitting Provider Nurse Practitioner Acute Care; Emergency Provider Emergency Medicine Emergency Medical Services; PCP Family Medicine; Visit Provider Internal Medicine | DX: K70.11 Alcoholic hepatitis with ascites (principal); F10.20 Alcohol dependence, uncomplicated; R74.8 Abnormal levels of other serum enzymes; K70.31 Alcoholic cirrhosis of liver with ascites; R11.10 Vomiting, unspecified; R10.84 Generalized abdominal pain; K74.60 Unspecified cirrhosis of liver | CPT/HCPCS: 99223 ==

== ENCOUNTER → 2025-05-22 10:36 | Outpatient (BNV) | payer OTHER, SELFPAY | PROVIDERS: Admitting Provider Nurse Practitioner Acute Care; Emergency Provider Emergency Medicine Emergency Medical Services; PCP Family Medicine; Visit Provider Nurse Practitioner Acute Care | DX: F10.20 Alcohol dependence, uncomplicated (principal) | CPT/HCPCS: 99223 ==

== ENCOUNTER 2025-05-27 00:13 | Inpatient (IN) | payer OTHER, SELFPAY ==
[2025-05-27] VITALS (68 sets, daily range): BP systolic 84–163; BP diastolic 33–83; PULSE 80–120; RESP 12–24; TEMP 35–37.1; O2SAT 92–100; BMI 42.4
--- NOTE | ~2025-05-27 | XR_ITS ---
CLINICAL HISTORY: RIJ dialysis port 1 view chest x-ray Comparison: 05/27/2025 Findings: Portions of the exam are obscured by overlying material. There is increased consolidation in the lung bases. Left IJ central line tip crossing of the midline possibly in the right subclavian vein. Right IJ central venous line tip is possibly in the SVC. Endotracheal tube is 3.1 cm above the kelsie The exam is otherwise unchanged IMPRESSION: 1. Increased pulmonary consolidation. 2. Malpositioned left IJ central venous line. This document has been electronically signed by: Gonzalo Heart MD on 05/29/2025 13:19:17
--- NOTE | ~2025-05-27 | XR_ITS ---
EXAMINATION: XR CHEST CLINICAL INFORMATION: TLC Insert COMPARISON: X-ray performed 13 hours earlier TECHNIQUE: Frontal view of the chest was obtained. FINDINGS: Since prior, left IJ central line has been placed. The tip is in the superior vena cava. ET tube remains in the mid to lower thoracic trachea. Linear density left lung base likely represents increasing atelectasis. There are low lung volumes. Cardiac size is likely enlarged. XR/XR chest 1V IMPRESSION: Left-sided IJ central line with tip in the superior vena cava. Cardiomegaly. Low lung volumes and left basilar atelectasis. Electronically signed by: Edmundo Srivastava MD 05/27/2025 05:07 PM EDT RP
--- NOTE | ~2025-05-27 | CT_ITS ---
EXAMINATION: CT HEAD WITHOUT IV CONTRAST HISTORY: ?Intracranial Process. TECHNIQUE: Unenhanced helical CT of the head was performed per standard departmental protocol. Coronal and sagittal reformats of the head were also evaluated. One or more of the following techniques was used for dose reduction: Automated exposure control, adjustment of the mA and/or kV according to patient size, use of iterative reconstruction technique. DLP: 1980 mGy-cm COMPARISON: There are no prior studies available for comparison. FINDINGS: The examination is somewhat degraded by patient motion. BRAIN: The brain parenchyma is unremarkable. There is normal burgos/white differentiation. The ventricular system is normal in size and configuration. There is no mass effect or midline shift. No intra- or extra-axial fluid collections are identified. SINUSES: The visualized paranasal sinuses are clear. The mastoid air cells and middle ear cavities are well pneumatized. ORBITS: The visualized orbits are unremarkable. BONES/SOFT TISSUES: The extracranial soft tissues are unremarkable. The calvarium is intact. No suspicious lytic or sclerotic lesions. CT/CT head/brain wo IV con IMPRESSION: No acute intracranial abnormality. Electronically signed by: Bandar Paul MD 06/01/2025 02:43 PM EDT
--- NOTE | ~2025-05-27 | XR_ITS ---
CLINICAL HISTORY: et 1 view chest x-ray Comparison: CR - XR CHEST 1V - 05/22/25 13:36 EDT Findings: Low lung volumes. Heart size is normal. No acute fracture. IMPRESSION: ET tube 3.5 cm above the kelsie. This document has been electronically signed by: Felicita Heath MD on 05/27/2025 04:27:27
--- NOTE | ~2025-05-27 | CT_ITS ---
CLINICAL HISTORY: CADS CT abdomen and pelvis without contrast Comparison: CT/REG/SR - CT ABDOMEN PELVIS W IV CON - 05/22/25 08:05 EDT Findings: There is diffuse mild liver surface nodularity consistent with cirrhosis. There is mild hepatomegaly and mild hepatic steatosis. The gallbladder is mildly distended. There are small stones layering dependently in the gallbladder. The spleen is upper limits of normal in size. The pancreas and adrenal glands are unremarkable. There is a small hyperdensity in the upper pole of the right kidney likely hemorrhagic/proteinaceous cyst. Left kidney is unremarkable. There is colonic wall thickening/edema predominantly in the ascending colon. There is a rectal tube. Patient is status post sleeve gastrectomy. There is a moderate amount of ascites. There is no free air. The aorta is normal in diameter. There are no enlarged lymph nodes. The bladder is mildly distended. There is a focus of gas in the bladder. There is diffuse body wall edema. There is no acute fracture or suspicious lytic or sclerotic lesion. IMPRESSION: 1. Cirrhosis with moderate amount of ascites. 2. Cholelithiasis. 3. Mild colonic wall thickening/edema predominantly in the right hemicolon which could be due to portal hypertensive colopathy or colitis. 4. Focus of gas in the bladder. Correlate for recent catheterization or urinary tract infection. 5. Body wall edema. This document has been electronically signed by: Cuong Beck MD on 06/04/2025 02:17:02
--- NOTE | ~2025-05-27 | CT_ITS ---
CLINICAL HISTORY: NEDS CT chest without contrast Comparison: None provided Findings: Heart size is within normal limits. There is no pericardial effusion. There is no coronary artery calcification. Thoracic aorta is normal in diameter. No enlarged lymph nodes are seen. Right IJ dialysis catheter is in the upper SVC. Left IJ central venous catheter crosses the midline into the right brachiocephalic vein. There is extensive consolidation in the lower lobes. There are scattered small nodular areas of consolidation and ground-glass opacity in the remainder of the lungs. Trachea and central bronchi are widely patent. Endotracheal tube is in satisfactory position. There are bilateral subacute and chronic rib fractures. There is no acute fracture or suspicious lytic or sclerotic lesion. IMPRESSION: 1. Extensive consolidation in the lower lobes consistent with pneumonia or aspiration pneumonitis. 2. Scattered small nodular areas of consolidation and ground-glass opacity in the remainder of the lungs almost certainly infectious/inflammatory. This document has been electronically signed by: Cuong Beck MD on 06/04/2025 02:24:06
--- NOTE | 2025-05-27 00:23 | ED.GENADULT ---
HPI - General Adult General Chief complaint: GI Bleed Stated complaint: Vomiting Blood , ETOH Time Seen by Provider: 05/27/25 00:19 Source: patient Mode of arrival: ambulatory Limitations: no limitations History of Present Illness ED Provider: Dr. Enriquez HPI narrative: 29 yo m of history of alcoholic liver cirrhosis presented hospital today for active hematemesis. Patient started have hematemesis today. Patient stated that he has been vomiting blood all day long. The patient was brought in pale hypotensive blood over his mouth. Related Data Home Medications ?Medication ?Instructions ?Recorded ?Confirmed cholecalciferol (vitamin D3) 50 50 mcg PO DAILY 08/05/24 05/22/25 mcg (2,000 unit) capsule cyanocobalamin (vitamin B-12) 1,000 mcg PO DAILY 08/05/24 05/22/25 1,000 mcg tablet (Vitamin B-12) multivitamin 1 tab PO DAILY 08/05/24 05/22/25 thiamine HCl (vitamin B1) 100 mg 100 mg PO DAILY 08/05/24 05/22/25 tablet (Vitamin B-1) atomoxetine 10 mg capsule 40 mg PO DAILY 05/22/25 05/22/25 ibuprofen 200 mg tablet 400 mg PO Q8H PRN Pain (Scale 05/22/25 05/22/25 Score 4-6) Previous Rx's ?Medication ?Instructions ?Recorded acamprosate 333 mg tablet,delayed 333 mg PO BID 60 days #120 tabs 12/18/24 release naltrexone 50 mg tablet 50 mg PO DAILY 30 days #30 tabs 12/18/24 magnesium oxide 400 mg (241.3 mg 400 mg PO DAILY 30 days #30 tabs 01/03/25 magnesium) tablet citalopram 20 mg tablet 20 mg PO DAILY 30 days #30 tabs 03/29/25 famotidine 40 mg tablet 40 mg PO DAILY 90 days #90 tabs 03/29/25 prednisone 20 mg tablet 40 mg (2 x 20 mg) PO DAILY 28 days 05/25/25 #56 tabs Allergies Allergy/AdvReac Type Severity Reaction Status Date / Time amoxicillin Allergy Unknown hives Verified 05/27/25 00:20 Penicillins (PENICILLINS) Allergy Unknown ANAPHYLAXIS Verified 05/27/25 00:20 red dye (RED DYE) Allergy Unknown UNKNOWN Verified 05/27/25 00:20 shrimp (SHRIMP) Allergy Unknown UNKNOWN Verified 05/27/25 00:20 Sulfa (Sulfonamide Allergy Unknown hives Verified 05/27/25 00:20 Antibiotics) sulfamethoxazole (From Allergy Unknown UNKNOWN Verified 05/27/25 00:20 BACTRIM) trimethoprim (From BACTRIM) Allergy Unknown UNKNOWN Verified 05/27/25 00:20 Biaxin Allergy Unknown hives Uncoded 05/27/25 00:20 SEAFOOD Allergy Unknown UNKNOWN Uncoded 05/27/25 00:20 Review of Systems Review of Systems: Unable to obtain due to critical illness [facility] Past Medical History [facility] Narrative: Alcoholic liver cirrhosis Medical History Low back pain Morbid obesity with BMI of 40.0-44.9, adult Hyperparathyroidism Vitamin D deficiency Alcohol use disorder Weakness Anxiety ADHD Periodontitis Alcoholism Hernia Surgical History H/O gastric sleeve Social History Social History Household Members: Family Household Members Other:: Father, grandma and girlfriend Housing: House Do you presently have visiting nurse or other home services: No Alcohol intake: current Alcohol type: hard liquor Comment: refusing bed in lowest position, reports it is hard for him to get up. Patient Tobacco Use Status: Never used Tobacco e-Cigarette/Vaping Use: Never Used Substance Use Type: Marijuana Advance Directives: No Advance Directives Information Provided: Yes service: No Current occupational status: unemployed Current occupational exposures/hazards: No Cognitive needs: No Hearing needs: No Vision needs: No Physical Exam ED Exam Exam: General: Pale, responsive to verbal stimuli, blood on his mouth Head: Normacephalic, atraumatic ENT: Blood in the oropharynx, scleral icterus Cardiovascular: Tachycardic rate, regular rhythm, no murmurs, rubbing, gallops Respiratory: CTAB, no wheeze, rales, rhonchi Gastrointestinal: Soft, non distended, non tender, non guarding Extremities: No limb pain or swelling, no calf tenderness Neurological: Awake and alert, no facial droop noted Skin: Warm and dry, jaundice Vital Signs: Vital Signs - 24 hr 05/27/25 00:17 Pulse Rate 109 H Respiratory Rate 12 Blood Pressure 101/53 L Pulse Oximetry 99 Oxygen Delivery Method Room Air BMI result Body Mass Index 42.4 Medications Administered Discontinued Medications Generic Name Dose Route Start Last Admin Trade Name Freq PRN Reason Stop Dose Admin Metronidazole 500 mg in 100 mls @ 100 mls/hr 05/27/25 00:25 05/27/25 00:32 Flagyl IV 05/27/25 01:24 100 mls/hr ONCE ONE Administration Octreotide Acetate 50 mcg 05/27/25 00:19 05/27/25 00:28 Octreotide Acetate 100 Mcg/Ml Ampul IVPUSH 05/27/25 00:20 50 mcg ONCE ONE Administration Ondansetron HCl 4 mg 05/27/25 00:19 05/27/25 00:28 Ondansetron Hcl 4 Mg/2 Ml Vial IVPUSH 05/27/25 00:20 4 mg ONCE ONE Administration Pantoprazole Sodium 80 mg 05/27/25 00:19 05/27/25 00:28 Pantoprazole Sodium 40 Mg/10 Ml Vial IVPUSH 05/27/25 00:20 80 mg ONCE ONE Administration Procedures Central Line Placement Right Femoral: Patient Placed on Monitor/Pulse Ox: Yes MD Prep: gloves Central Line Prep: Chlorhexidine scrub Local Anesthetic: lidocaine 1% Amount of anesthesia used (mL): 5 Ultrasound Used for Placement: Yes Central Line Lumen Inserted: triple Post Procedure: sutured in place, good blood return, all ports aspirated, flushed, capped and sterile dressing applied Patient Tolerated Procedure: well Complications: none Intubation Intubation Type:: Endotracheal Tube Insertion Intubation Date:: 05/27/25 Intubation Time:: 02:17 sedative: Ketamine Mg Given: 130 paralytic: Rocuronium Mg Given: 150 Laryngoscope: other (Glidescope) ET Tube Size: 7.5 ET Tube Uncuffed: No Tube Secured Depth (cm): 24 Tube Secured Location: lips Tube Placement Confirmation: visualized tube passing through cords, equal breath sounds bilaterally and confirmation by capnometry Patient Tolerated Procedure: well Intubation Complications: none Medical Decision Making Medical Decision Making [facility] Narrative: This is a 29-year-old male history of alcoholic cirrhosis presented hospital today for active hematemesis concern for variceal bleed in setting all hemorrhagic shock. The patient appears unstable at this time MTP has been ordered for the patient. In setting of hemorrhagic shock. Patient is hypotensive tachycardic. Appears to be pale. Patient is having active hematemesis. I this started IV Protonix, IV we will place him on octreotide infusion. We will transfuse some FFP as well to the patient. Vitamin K will be ordered for the patient. Patient has remained hypotensive, Levophed initiated. I through an emergent central line and right groin as IV access was difficult. Patient has continued to have active hematemesis. At this time a decision was made to intubate on to protect his airway. I did reach out to GI as well. ET tube was placed inpatient. Without any complication. Ketamine and rocuronium was used for induction. Patient's hemoglobin of 5.9. Patient is in hemorrhagic shock. Plan to continue transfusion for the patient at this time. FFP is going in at this time. Additional RBCs given to the patient. Discuss case with Dr. Blount who recommends resuscitation prior to scoping. Discussed case with Lasha from ICU for admission who will plan to accept patient. Differential Diagnosis Differential Diagnoses: The differential diagnosis associated with the presentation includes Addressed shock, variceal bleed, liver cirrhosis Admission/Observation Consideration of admission/observation: Escalation of care including admission/observation considered Consult Healthcare Provider Management of the patient was discussed with: Space Officer (Dr. Tate (GI), Dr. Saba and Lasha (ICU)) Lab Data MDM Lab Attestation statement: I reviewed the patient's lab results. 05/27/25 00:29 05/27/25 00:29 Labs: Lab Results 05/27/25 05/27/25 Range/Units 00:29 00:37 WBC 17.2 H (4.8-10.8) X10*3/uL RBC 1.67 L D (4.60-5.80) X10*6/uL Hgb 5.9 L* D (14.0-18.0) g/dl Hct 17.1 L* D (42.0-52.0) % MCV 102.4 H D (80.0-98.0) fL MCH 35.3 H (27.0-33.0) pg MCHC 34.5 (31.0-36.0) g/dl RDW TNP Plt Count 222 D (160-400) X10*3/uL MPV 9.7 (9.4-12.4) fL Immature Gran % (Auto) 4.7 H (0.0-0.4) % Neut % (Auto) 60.2 (45-73) % Lymph % (Auto) 19.5 L (20-40) % [place] % (Auto) 14.9 H (2-11) % Eos % (Auto) 0.6 (0-4) % Baso % (Auto) 0.1 (0-2) % Lymph # (Auto) 3.3 (1.2-4.9) X10*3/uL [place] # (Auto) 2.6 H (0.1-1.2) X10*3/uL Eos # (Auto) 0.1 (0.0-0.4) X10*3/uL Baso # (Auto) 0.0 (0.0-0.2) X10*3/uL Abs Immat Gran (auto) 0.80 H (0.00-0.03) X10*3/uL Absolute Neuts (auto) 10.4 H (2.0-8.3) x10*3/uL Absolute Nucleated RBC 0.240 H (0.0-0.012) X10*3/uL Nucleated RBC % (auto) 1.4 H (0.0-0.2) /100WBC Smear Tech's Comments VERIFIED PT 33.8 H D (10.9-12.4) SEC INR 2.9 H (0.9-1.1) Fibrinogen 143 L (259-690) MG/DL Sodium 137 (135-145) mmol/L Potassium 3.4 (3.3-5.1) mmol/L Chloride 103 (96-108) mmol/L Carbon Dioxide 17 L (22-29) mmol/L Anion Gap 20 (12-20) BUN 7 L (9-16) mg/dL Creatinine 0.81 (0.5-1.4) mg/dL Estim Creat Clear Calc 183.7 Estimated GFR > 60 Random Glucose 113 (60-115) mg/dL Lactic Acid 13.7 H* (0.5-2.0) mmol/L Calcium 6.3 L D (8.4-10.2) mg/dL Total Bilirubin 11.9 H (0.0-1.0) mg/dL AST 200 H (5-37) U/L ALT 52 H (0-40) U/L Alkaline Phosphatase 221 H (39-117) U/L Troponin I High Sens 7.0 D (<3.5-35.0) ng/L Total Protein 3.5 L (6.5-8.0) g/dL Albumin 1.6 L (3.5-5.0) g/dL Blood Type O Positive Antibody Screen NEGATIVE Crossmatch See Detail Chronic Conditions Cirrhosis Critical Care Time Critical Care Time Total Critical Care Time: 60 Attestation: Time is exclusive of separately billable procedures. Time includes: direct patient care, patient reassessment, coordination of patient care, interpretation of data (laboratory data, pulse oximetry, arterial blood gases and chest xrays), review of patient's medical records, medical consultation and documentation of patient care. Procedures excluded from critical care time: central intravenous line placement and electrocardiography. Discharge Plan Discharge Clinical Impression: Hemorrhagic shock, Bleeding esophageal varices Patient Disposition: Admitted As Inpatient
[2025-05-27] MEDS: Octreotide Acetate 100 MCG/ML AMPUL 50 MCG IVPUSH (00:28)
[2025-05-27] MEDS: metroNIDAZOLE/NS 500 MG/100 ML PIGGYBACK 100 MG IV (00:32)
[2025-05-27] MEDS: Lactated Ringers 1,000 ML 999 ML IV (00:35)
[2025-05-27 00:55] LABS: Fibrinogen 143 MG/DL (259-690); INTERNATIONAL NORM RATIO 2.9 (0.9-1.1); Prothrombin Time 33.8 SEC (10.9-12.4)
[2025-05-27 00:57] LABS: Imm Gran Abs Auto 0.80 X10*3/uL (0.00-0.03); Imm Gran Pct Auto 4.7 % (0.0-0.4); Lymphocytes Absolute Auto 3.3 X10*3/uL (1.2-4.9); MANUAL DIFF FLAG SCAN; Mean Corpuscular HGB Conc 34.5 g/dl (31.0-36.0); Mean Corpuscular Hemoglobin 35.3 pg (27.0-33.0); Mean Corpuscular Volume 102.4 fL (80.0-98.0); NRBC Abs Auto 0.240 X10*3/uL (0.0-0.012); Platelet Count 222 X10*3/uL (160-400); Red Blood Count 1.67 X10*6/uL (4.60-5.80); SCAN SMEAR FLAG 1; White Blood Count 17.2 X10*3/uL (4.8-10.8)
[2025-05-27 00:58] LABS: NRBC Pct Auto 1.4 /100WBC (0.0-0.2)
[2025-05-27 01:00] LABS: Hematocrit 17.1 % (42.0-52.0); Hemoglobin 5.9 g/dl (14.0-18.0)
[2025-05-27 01:08] LABS: Troponin-I High Sensitivity 7.0 ng/L (<3.5-35.0)
[2025-05-27] MEDS: Ketamine HCl/NS 50 MG/5 ML SYRINGE 150 MG IVPUSH (01:08)
[2025-05-27] MEDS: Hum Prothrombin Cplx(PCC)4Fact 2,500 UNIT in Container,Empty 0 ML 480 UNIT IV (01:15)
[2025-05-27 01:18] LABS: Alanine Aminotransferase 52 U/L (0-40); Albumin Level 1.6 g/dL (3.5-5.0); Alkaline Phosphatase 221 U/L (39-117); Anion Gap 20 (12-20); Aspartate Amino Transferase 200 U/L (5-37); Blood Urea Nitrogen 7 mg/dL (9-16); Calcium 6.3 mg/dL (8.4-10.2); Carbon Dioxide 17 mmol/L (22-29); Chloride 103 mmol/L (96-108); Creatinine Clr Calc Pharmacy 183.7; Estimated Glomerular Filt Rate > 60; Potassium 3.4 mmol/L (3.3-5.1); Sodium 137 mmol/L (135-145); Total Protein 3.5 g/dL (6.5-8.0)
[2025-05-27] MEDS: Tranexamic Acid 1,000 MG in 0.9 % Sodium Chloride 50 ML 360 MG IV (01:25)
--- OUTSIDE RECORDS SUMMARY | 2025-05-27 01:28 | XMS_ITS | Clinical Summary ---
Author Organization [facility] Address [address] [address] Phone Care Team Providers Care Delivery Supervisor Name Role Phone Unknown, Unknown Primary Care [...] did not require to go to the [facility]. No antibiotics necessary. This virtual telephone visit [...] (04/04/2018 12:26 PM EDT) HCV Negative Negative [facility] Comment: This is a screening test and should be confirmed with molecular testing Blood 04/04/2018 12:2 6 PM EDT 04/04/2018 8:09 PM EDT us Annalee Licona NP LAB BLOOD ORDERABLES Final Resu lt [facility] [address] [place] [address] from Last 3 Months or Most Recently Relevant to Health Maintenance Insurance [facility] C3 A[employer] [facility] C[address] [place] [address] [place] [address] C[employer] [facility] C3 ACO Care Teams Delivery Supervisor Relationship Specialty Start Date End Date Unknown, Unknown, PCP - General 11/20/23 Additional Source Comments The information contained in this document represents components of the legal health record. It is not the complete legal health record.[facility]
--- NOTE | 2025-05-27 01:42 | PM.CCHP ---
History of Present Illness Date of Service: 05/27/25 <STEFANI Martinez - Last Filed: 05/27/25 04:10> Attending physician on admission: Andi Saba <STEFANI Martinez - Last Filed: 05/27/25 04:10> Chief Complaint: Acute UGIB <STEFANI Martinez - Last Filed: 05/27/25 04:10> 29-year-old male with underlying history of alcoholism, alcohol withdrawal seizures, anemia, morbid obesity with BMI of 40, hyperparathyroidism, vitamin-D deficiency, anxiety, gastric sleeve 10 years ago at [facility], presented to emergency room vomiting blood. The patient is discharged from this hospital 2 days ago after an admission for abdominal pain and 20 lb weight gain.? The patient had workup for gallbladder disease and there was no evidence of cholecystitis on HIDA scan, he was treated with antibiotics.? He had been seen by office employee team with a MDF score of 59.4 and a MELD score of 24.? He had been started on prednisolone 40 mg daily, spironolactone and outpatient follow-up recommendations. ?He did have a paracentesis and there was was no evidence of SBP.? His abdominal symptoms had improved after fluid removal with a total of 2.4 L of clear yellow fluid. The patient came to the emergency room today with complaints of vomiting blood and having bright red blood per rectum.? In the emergency room he was noted to be hypotensive, massive transfusion protocol was started, given that his INR was elevated a couple days ago case central was ordered, Levaquin.? The patient has subsequently intubated for airway protection and further management. ?A ?dirty? femoral central line was placed, his workup revealed white count 17.2, H and H of 5.9 and 70.1 respectively, platelets 222, INR 2.9, PTT 33.8.? Sodium 137, potassium 3.4, chloride 103, carbon dioxide 17, anion gap 20, BUN 7, creatinine 0.81.? Lactic acid 13.7, calcium 6.3, total bilirubin 11.9, HCT 200, ALT 52, albumin 1.6.? Blood type O positive with antibody negative. ?The patient was started on Levophed, He was transferred to the ICU for further care. <STEFANI Martinez - Last Filed: 05/27/25 04:10> Review of Systems Review of Systems: Yes unobtainable due to endotracheal tube <STEFANI Martinez - Last Filed: 05/27/25 04:10> [facility] Past Medical History Medical History: Medical History Low back pain Morbid obesity with BMI of 40.0-44.9, adult Hyperparathyroidism Vitamin D deficiency Alcohol use disorder Weakness Anxiety ADHD Periodontitis Alcoholism Hernia <STEFANI Martinez - Last Filed: 05/27/25 04:10> Surgical History Surgical History: Surgical History H/O gastric sleeve <STEFANI Martinez - Last Filed: 05/27/25 04:10> Social History Social History: Social History Household Members: Unknown / Unable to assess Household Members Other:: Father, grandma and girlfriend Housing: Unknown / Unable to assess Do you presently have visiting nurse or other home services: No Alcohol intake: current Alcohol type: hard liquor Comment: refusing bed in lowest position, reports it is hard for him to get up. Patient Tobacco Use Status: Never used Tobacco e-Cigarette/Vaping Use: Never Used Substance Use Type: Marijuana service: No Current occupational status: unemployed Current occupational exposures/hazards: No Cognitive needs: No Hearing needs: No Vision needs: No <STEFANI Martinez - Last Filed: 05/27/25 04:10> Meds Allergies/Adverse reactions: Allergies Allergy/AdvReac Type Severity Reaction Status Date / Time amoxicillin Allergy Unknown hives Verified 05/27/25 00:20 Penicillins (PENICILLINS) Allergy Unknown ANAPHYLAXIS Verified 05/27/25 00:20 red dye (RED DYE) Allergy Unknown UNKNOWN Verified 05/27/25 00:20 shrimp (SHRIMP) Allergy Unknown UNKNOWN Verified 05/27/25 00:20 Sulfa (Sulfonamide Allergy Unknown hives Verified 05/27/25 00:20 Antibiotics) sulfamethoxazole (From Allergy Unknown UNKNOWN Verified 05/27/25 00:20 BACTRIM) trimethoprim (From BACTRIM) Allergy Unknown UNKNOWN Verified 05/27/25 00:20 Biaxin Allergy Unknown hives Uncoded 05/27/25 00:20 SEAFOOD Allergy Unknown UNKNOWN Uncoded 05/27/25 00:20 <STEFANI Martinez - Last Filed: 05/27/25 04:10> Active Medications: Current Medications Norepinephrine Bitartrate (Levophed) 8 mg in 250 mls @ 0 mls/hr IVCONT .Q0M MICHAEL; Protocol Octreotide Acetate 500 mcg/ (Sodium Chloride) 501 mls @ 50.1 mls/hr IVCONT .Q10H MICHAEL Ketamine HCl 500 mg/ Sodium (Chloride) 255 mls @ 27.336 mls/hr IVCONT .Q9H20M MICHAEL; Protocol Fentanyl (Sublimaze/Ns) 1,000 mcg in 100 mls @ 0 mls/hr IVCONT .Q0M MICHAEL; Protocol Phytonadione 10 mg/ Sodium (Chloride) 51 mls @ 51 mls/hr IV ONCE ONE Stop: 05/27/25 02:27 Levofloxacin (Levaquin) 500 mg in 100 mls @ 100 mls/hr IV Q24H MICHAEL Naloxone HCl (Naloxone Hcl 0.4 Mg/Ml Vial) 0.2 mg IVPUSH Q2M PRN PRN Reason: Excessive sedation or RR < 8 <STEFANI Martinez - Last Filed: 05/27/25 04:10> Home medications: Home Medications ?Medication ?Instructions ?Recorded ?Confirmed ?Last Taken ?Type cholecalciferol (vitamin D3) 50 50 mcg PO DAILY 08/05/24 05/27/25 05/20/25 History mcg (2,000 unit) capsule cyanocobalamin (vitamin B-12) 1,000 mcg PO DAILY 08/05/24 05/27/25 05/20/25 History 1,000 mcg tablet (Vitamin B-12) multivitamin 1 tab PO DAILY 08/05/24 05/27/25 05/20/25 History thiamine HCl (vitamin B1) 100 mg 100 mg PO DAILY 08/05/24 05/27/25 05/20/25 History tablet (Vitamin B-1) atomoxetine 10 mg capsule 40 mg PO DAILY 05/22/25 05/27/25 05/20/25 History ibuprofen 200 mg tablet 400 mg PO Q8H PRN Pain (Scale 05/22/25 05/27/25 Unknown History Score 4-6) <STEFANI Martinez - Last Filed: 05/27/25 04:10> Physical Exam Vital Signs: Vital Signs: Last Vital Signs Pulse 109 H 05/27/25 00:17 Resp 12 05/27/25 00:17 BP 101/53 L 05/27/25 00:17 Pulse Ox 99 05/27/25 00:17 O2 Del Method Room Air 05/27/25 00:17 BMI result Body Mass Index 42.4 <STEFANI Martinez - Last Filed: 05/27/25 04:10> General:? Intubated and sedated, Skin:? jaundice, Intact, no lesions, edema, erythema, clubbing or cyanosis.? No ulcers. HEENT:? Head is normocephalic, atraumatic, pupils equal. Buccal mucosa is dry.? Cardiac:? Tachycardic at 110 beats per minute, no murmurs, rubs, gallops. Pulmonary:? Diminished lung sounds bilaterally fine expiratory wheezing bilaterally .? No crackles, rales or rhonchi. Abdomen:? Large, distended, no bowel sounds appreciated. ? Musculoskeletal:? Passive range of motion of all 4 extremities reveal no cogwheeling or crepitus at the major joints of all extremities.? No leg edema, no asymmetry. Neurologic:? As above.? No focal deficits noted. Vascular:? 2+ pulses upper and lower extremities distally.? Less than 2nd capillary refill of fingers and toes bilaterally upper and lower extremities <STEFANI Martinez - Last Filed: 05/27/25 04:10> Results Labs CBC and Chem 7: 05/27/25 08:08 05/27/25 05:57 <STEFANI Martinez - Last Filed: 05/27/25 04:10> Labs: Laboratory Results - last 24 hr 05/27/25 05/27/25 00:29 00:37 MCV 102.4 H D MCH 35.3 H MCHC 34.5 RDW TNP Plt Count 222 D MPV 9.7 Immature Gran % (Auto) 4.7 H Neut % (Auto) 60.2 Lymph % (Auto) 19.5 L [place] % (Auto) 14.9 H Eos % (Auto) 0.6 Baso % (Auto) 0.1 Lymph # (Auto) 3.3 [place] # (Auto) 2.6 H Eos # (Auto) 0.1 Baso # (Auto) 0.0 Abs Immat Gran (auto) 0.80 H Absolute Neuts (auto) 10.4 H Absolute Nucleated RBC 0.240 H Nucleated RBC % (auto) 1.4 H Smear Tech's Comments VERIFIED PT 33.8 H D INR 2.9 H Fibrinogen 143 L Anion Gap 20 Estim Creat Clear Calc 183.7 Estimated GFR > 60 Random Glucose 113 Lactic Acid 13.7 H* Calcium 6.3 L D Total Bilirubin 11.9 H AST 200 H ALT 52 H Alkaline Phosphatase 221 H Troponin I High Sens 7.0 D Total Protein 3.5 L Albumin 1.6 L Blood Type O Positive Antibody Screen NEGATIVE Crossmatch See Detail <STEFANI Martinez - Last Filed: 05/27/25 04:10> Assessment and Plan (1) Acute upper gastrointestinal hemorrhage: Status: Acute <STEFANI Martinez - Last Filed: 05/27/25 04:10> ASSESSMENT : 1. Acute upper GI hemorrhage with early shock likely esophageal varices 2. History of alcoholism and risk of delirium tremens 3. Chronic disease anemia with acute blood loss 4. Hypercoagulability due to liver disease 5. Acute lactic and metabolic acidosis due to severity of bleed and hypoperfusion 6. Severe Chronic alcoholic hepatitis andcirrhosis with MDF of 59 and MELD of 24 7. Hypoalbuminemia 8. Polysubstance abuse including marijuana, cocaine and barbiturates 9.Hypoalbuminemia 10.Pseudo hypocalcemia with corrected calcium level of 9 PLAN OF CARE: The patient will be admitted to the ICU, monitor vital signs, I's and o's, H and H q.4 hours, propofol for sedation.? If pressors are needed we will start him on vasopressin, continue with the octreotide and start Protonix drip, levaquin as he is allergic to PCN.? Consult GI.? Avoid OG tube.? IV folic acid, thiamine.? IV fluid support.? Albumin salt replacement. I will discontinue Levophed at this point for his blood pressure is above 140 systolic, the patient is still bleeding from the oral pharynx, nose and now has melena. The patient received 4 units of packed red blood cells and 1 unit fresh frozen plasma, despite it all has ongoing bleeding, we will give him TXA; I have ordered more FFP. Hold steroids for now. Repeat labs in the morning. GI PROPHYLAXIS:? IV PPI and octreotide DVT PROPHYLAXIS:? Pneumatic stockings only 02:[address] Blount given the ongoing bleeding to whom I manifested my concern and asked him if he could urgently scope him. He kindly asked me to continue with current treatment and let him know of the status within an hour. If the patient continues to bleed he will then likely intervene. 0330 the patient remains hemodynamically stable, his H&H is 8.9 and 25.6 respectively, low pressure 132/45, heart rate 104, respirations 20, O2 sat 99% on 30% FiO2. Track Moving Machine Operator was updated given that the patient is still having bleeding around the endotracheal tube, however given the hemodynamic stability he will not proceed with endoscopy until later on this morning. I had a lengthy discussion with the patient's father Vijay regarding his son clinical condition and critical status. This patient counter and care had a high probability of a clinically significant, sudden, or life threatening deterioration of this patient's condition which required my full and direct attention, intervention and personal management. Critical care time used for critical evaluation of this patient, diagnosis, treatment and coordination of care, review her records and documentation TOTAL CRITICAL CARE TIME? 120 MIN . discussion and coordination with consultants, completely separate from any procedures performed. Patient's care was discussed in detail with Dr. Saba who is aware of all the above as well as the plan of care for this patient. <STEFANI Martinez - Last Filed: 05/27/25 04:10> ASSESSMENT : 1. Acute upper GI hemorrhage with early shock likely esophageal varices 2. History of alcoholism and risk of delirium tremens 3. Chronic disease anemia with acute blood loss 4. Hypercoagulability due to liver disease 5. Acute lactic and metabolic acidosis due to severity of bleed and hypoperfusion 6. Severe Chronic alcoholic hepatitis andcirrhosis with MDF of 59 and MELD of 24 7. Hypoalbuminemia 8. Polysubstance abuse including marijuana, cocaine and barbiturates 9.Hypoalbuminemia 10.Pseudo hypocalcemia with corrected calcium level of 9 PLAN OF CARE: The patient will be admitted to the ICU, monitor vital signs, I's and o's, H and H q.4 hours, propofol for sedation.? If pressors are needed we will start him on vasopressin, continue with the octreotide and start Protonix drip, levaquin as he is allergic to PCN.? Consult GI.? Avoid OG tube.? IV folic acid, thiamine.? IV fluid support.? Albumin salt replacement. I will discontinue Levophed at this point for his blood pressure is above 140 systolic, the patient is still bleeding from the oral pharynx, nose and now has melena. The patient received 4 units of packed red blood cells and 1 unit fresh frozen plasma, despite it all has ongoing bleeding, we will give him TXA; I have ordered more FFP. Hold steroids for now. Repeat labs in the morning. GI PROPHYLAXIS:? IV PPI and octreotide DVT PROPHYLAXIS:? Pneumatic stockings only 02:[address] Blount given the ongoing bleeding to whom I manifested my concern and asked him if he could urgently scope him. He kindly asked me to continue with current treatment and let him know of the status within an hour. If the patient continues to bleed he will then likely intervene. 0330 the patient remains hemodynamically stable, his H&H is 8.9 and 25.6 respectively, low pressure 132/45, heart rate 104, respirations 20, O2 sat 99% on 30% FiO2. Track Moving Machine Operator was updated given that the patient is still having bleeding around the endotracheal tube, however given the hemodynamic stability he will not proceed with endoscopy until later on this morning. I had a lengthy discussion with the patient's father Vijay regarding his son clinical condition and critical status. 0900: received 7 of PRBC, 5FFP and 2 platelet. He is planned to get upper GI endoscopy around noon; we will give him 2 more units of PRBC to stabilize him for the procedure increasing requirement of levophed, vasopressin stopped as he is on octreotide. on Flagyl and levoquin for antibiotic coverage for SBP prophylaxis and aspiration pneumonia Ongoing significant ventilator dyssynchrony, we will add fentanyl drip on top of propofol. will switch femoral line to IJ TLC. Patient is admitted with severe upper GI bleed, no concerns for sepsis in the setting of cirrhosis and end-stage liver disease. His elevated bilirubin is secondary to chronic liver disease, hypotension is secondary to hemorrhagic shock. This patient counter and care had a high probability of a clinically significant, sudden, or life threatening deterioration of this patient's condition which required my full and direct attention, intervention and personal management. Critical care time used for critical evaluation of this patient, diagnosis, treatment and coordination of care, review her records and documentation TOTAL CRITICAL CARE TIME? 120 MIN . discussion and coordination with consultants, completely separate from any procedures performed. Patient's care was discussed in detail with Dr. Saba who is aware of all the above as well as the plan of care for this patient. <Andi Saba MD - Last Filed: 05/27/25 11:54>
[2025-05-27 02:32] LABS: Hematocrit 25.6 % (42.0-52.0); Hemoglobin 8.9 g/dl (14.0-18.0)
[2025-05-27 02:41] LABS: Reflex Lactate? Lactic Acid Added
[2025-05-27 03:17] LABS: ~Lactic Acid-LAB USE ONLY 12.0 mmol/L (0.5-2.0)
[2025-05-27] MEDS: Pantoprazole Sodium 80 MG in 0.9 % Sodium Chloride 80 ML 10 MG IV ×3 (03:33→19:57)
[2025-05-27] MEDS: Albumin Human 25 % 100 ML IV ×5 (04:18→23:01)
--- NOTE | 2025-05-27 04:33 | MHC.EDTECH ---
This patient was moved to ICU before this Technicians arrival.
[2025-05-27 04:59] LABS: Reflex Lactate? 2 Y
--- NOTE | 2025-05-27 06:04 | PC.NURSE ---
Addendum entered by Madelyn Maurer RN 05/27/25 06:39: 0150- pt transferred to ICU. Original Note: Late entry- pt biba from home with complaint of blood in vomit and stool. Pt has hx of alcoholic liver cirrhosis. Pt reported only having 2 nips today. Upon arrival pt was ill appearing, skin jaundice, dried blood around mouth and cool to touch. pt CA&O to self and place. Pt placed on monitor, IV access and labs obtained. Pt noted to be hypotensive, labs revealed INR 2.9, PTT 33.8,H&H of 5.9 and 70.1, platelets 222. 0025- Per Dr. Enriquez massive transfusion protocol initiated at this time. 0030- rectal thermometer placed 0033- pt receiving 1 unit of RBC via rapid transfuser. pt remains alert and conversing 0040- pt noted to be vomiting adeola blood 0044- pt remains alert and conversing, STEFANI Manjarerz placing ultrasound guided IV, to RUE. 0046- pt receiving second unit of RBC via rapid transfuser. 0048- US guided IV blown and removed. catheter intact, dry clean dressing applied. 0058- emergent right fem line place by Dr. Enriquez. pt tolerated well. preparing pt for intubation at this time. 0100- pt noted to have another episode of vomiting adeola blood. 0107- pt received first unit of plasma via rapid transfuser. 0105-110 intubation beginning, 150 mg of ketamine and 130mg of leon given via fem line. 7.5 et tube placed 24@ lip. 0112- pt received third unit of RBC via rapid transfuser. 0121-2nd bag of plasma started via IV pump 0125-pt received 1000mg of TXA via IVF. 0127- pt received first bag of platelets via rapid transfuser. 0138- pt received fourth unit of RBC via rapid transfuser. 0141- pt received second bag of platelets via rapid transfuser.
[2025-05-27 06:05] LABS: VBG HCO3 16 mmol/L (22-26); VBG O2 % Saturation 73.0 %
[2025-05-27 06:10] LABS: Hemoglobin 7.5 g/dl (14.0-18.0); Mean Corpuscular HGB Conc 36.4 g/dl (31.0-36.0); Mean Corpuscular Hemoglobin 32.9 pg (27.0-33.0); Mean Corpuscular Volume 90.4 fL (80.0-98.0); NRBC Abs Auto 0.180 X10*3/uL (0.0-0.012); Platelet Count 105 X10*3/uL (160-400); Red Blood Count 2.28 X10*6/uL (4.60-5.80); White Blood Count 17.6 X10*3/uL (4.8-10.8)
[2025-05-27 06:14] LABS: NRBC Pct Auto 1.0 /100WBC (0.0-0.2)
[2025-05-27 06:15] LABS: Hematocrit 20.6 % (42.0-52.0)
[2025-05-27 06:27] LABS: INTERNATIONAL NORM RATIO 1.6 (0.9-1.1); Prothrombin Time 18.2 SEC (10.9-12.4)
[2025-05-27 06:29] LABS: Venous Blood Gas Refer to POC result
[2025-05-27 06:32] LABS: ~Lactic Acid-LAB USE ONLY 13.1 mmol/L (0.5-2.0)
[2025-05-27 06:33] LABS: Alanine Aminotransferase 35 U/L (0-40); Albumin Level 2.2 g/dL (3.5-5.0); Alkaline Phosphatase 163 U/L (39-117); Anion Gap 22 (12-20); Aspartate Amino Transferase 151 U/L (5-37); Blood Urea Nitrogen 7 mg/dL (9-16); Calcium 5.9 mg/dL (8.4-10.2); Carbon Dioxide 16 mmol/L (22-29); Chloride 102 mmol/L (96-108); Creatinine Clr Calc Pharmacy 150.3; Estimated Glomerular Filt Rate > 60; Potassium 3.4 mmol/L (3.3-5.1); Sodium 137 mmol/L (135-145); Total Protein 4.0 g/dL (6.5-8.0)
--- NOTE | 2025-05-27 06:39 | PC.NURSE ---
Pt left the ED via stretcher to ICU with staff and Respiratory at 0149
[2025-05-27] MEDS: Vasopressin 20 UNIT/100 ML INFUS..BTL 6 UNIT IVCONT (06:45)
--- NOTE | 2025-05-27 07:12 | PC.NURSE ---
This RN responded to overhead MTP at 0025 in ED Bed 5. See MTP paperwork for blood?products administered. Patient transported to ICU at approx 0145 where this RN assumed care. Levophed gtt titrated off per STEFANI Mota. Propofol gtt started for sedation and titrated per OCT. Patient does not open eyes or follow commands, agitated when awake and thrashes head back and forth. ST on tele, TLC to R femoral cleaned and redressed. See vent assessment for settings. Patient bleeding from mouth and nose, STEFANI Mota aware. Protonix gtt started per OCT. 1 episode incontinent tarry stool. Per STEFANI no OGT. Johnson catheter?placed with small amount of clear orange urine, see I&O. Skin pale and bruised but intact. Per PA, patient is not to be repositioned r/t risk of bleeding. 2 additional units of FFP (run concurrently per STEFANI) and 1 RBC given, see blood bank paperwork. Patient temperature noted to be 94.8 via core probe, josesito hugger applied with some improvement. Patient with soft BPs at shift change, Vaso gtt started per OCT. STEFANI Mota aware of all critical labs and values, bedside report given to oncoming RN.
--- NOTE | 2025-05-27 07:26 | PHA.MEDREC ---
Pharmacy Consult ? Medication Reconciliation Pharmacy has completed the medication reconciliation. Pt was here on 05/25/25 and discharged, used pharmacy claims and discharge packet to complete med rec
[2025-05-27 07:44] LABS: Band Neutrophils Percent 3 % (3-5); Eosinophils Absolute Manual 0.2 X10*3/uL (0.0-0.4); Eosinophils Percent Manual 1 % (0-4); Lymphocytes Absolute Manual 0.9 X10*3/uL (1.2-4.9); Lymphocytes Percent Manual 5 % (20-40); Metamyelocytes Absolute 0.4 X10*3/uL; Metamyelocytes Percent 2 %; Monocytes Absolute Manual 1.9 X10*3/uL (0.1-1.2); Monocytes Percent Manual 11 % (2-11); Myelocytes Absolute 0.4 X10*/uL; Myelocytes Percent 2 %; Neutrophils Absolute Manual 13.7 X10*3/uL (2.0-8.3); Neutrophils Percent Manual 75 % (45-73); Promyelocytes Absolute 0.2 X10*3/uL; Promyelocytes Percent 1 %
[2025-05-27 07:45] LABS: Acanthocytes 2+ (3-5) /OIF; Basophilic Stippling 1+ (0-2) /OIF; Burr Cells 1+ (0-2) /OIF; Large Platelet PRESENT; Macrocytosis 1+ (5-14) /OIF; Polychromasia 1+ (0-2) /OIF; RBC Morphology NOTED; Spherocytes 1+ (0-2) /OIF; Target Cells 1+ (5-14) /OIF; Tear Drop Cells 1+ (0-2) /OIF
[2025-05-27 07:46] LABS: Hypochromasia 1+ (5-14) /OIF; Smudge Cells PRESENT; Toxic Vacuolation PRESENT
[2025-05-27] MEDS: Lactated Ringers 1,000 ML 100 ML IVCONT ×2 (07:52→20:25)
[2025-05-27] MEDS: Calcium Gluconate/NaCl,Iso-Osm 2 GM/100 ML PLAST..BAG IV (07:53)
--- NOTE | 2025-05-27 08:25 | PM.GICN ---
History of Present Illness Data of Consult Service Date: 05/27/25 Requesting physician: Lasha Mota Primary Care Provider: BLANCA Herrera Reason for consult: UGI bleeding, Cirrhosis 29 YM with alcoholism, alcohol withdrawal seizures, anemia, morbid obesity with BMI of 40, hyperparathyroidism, vitamin-D deficiency, anxiety, gastric sleeve 10 years ago at [facility] seen at [facility] ED early this am with hematemesis. History obtained from pt's Dad since pt is intubated and on propofol. Dad reports his son texted him around 11 pm asking for help since he was vomiting blood. He was brought to [facility] ED with complaints of vomiting blood and having bright red blood per rectum.? In the ED he was noted to be hypotensive, massive transfusion protocol was started, given that his INR was elevated a couple days ago case central was ordered, Levaquin.? The patient has subsequently intubated for airway protection and further management. ? A ?dirty? femoral central line was placed, his workup revealed white count 17.2, H and H of 5.9 and 70.1 respectively, platelets 222, INR 2.9, PTT 33.8.? Sodium 137, potassium 3.4, chloride 103, carbon dioxide 17, anion gap 20, BUN 7, creatinine 0.81.? Lactic acid 13.7, calcium 6.3, total bilirubin 11.9, HCT 200, ALT 52, albumin 1.6.? Blood type O positive with antibody negative. ? The patient was started on Levophed, He was transferred to the ICU for further care. Patient has been transfused 6 units of packed red blood cells, FFP and platelets overnight. The patient is discharged from [facility] on 05/25/25 of the hospitalization for abdominal pain and 20 lb weight gain.? He was workedup for gallbladder disease and there was no evidence of cholecystitis on HIDA scan, he was treated with antibiotics.? Pt was seen by Dr Simental with a MDF score of 59.4 and a MELD score of 24 and was started on prednisolone 40 mg daily, spironolactone and outpatient follow-up recommendations. ? He had a paracentesis and there was was no evidence of SBP.? Pt's abdominal symptoms improved after fluid removal with a total of 2.4 L of clear yellow fluid. Review of Systems Review of Systems: Yes unobtainable due to endotracheal tube PMFSH Past Medical History Medical History Low back pain Morbid obesity with BMI of 40.0-44.9, adult Hyperparathyroidism Vitamin D deficiency Alcohol use disorder Weakness Anxiety ADHD Periodontitis Alcoholism Hernia Surgical History Surgical History H/O gastric sleeve Social History Social History Household Members: Unknown / Unable to assess Household Members Other:: Father, grandma and girlfriend Housing: Unknown / Unable to assess Do you presently have visiting nurse or other home services: No Alcohol intake: current Alcohol type: hard liquor Comment: refusing bed in lowest position, reports it is hard for him to get up. Patient Tobacco Use Status: Never used Tobacco e-Cigarette/Vaping Use: Never Used Substance Use Type: Marijuana service: No Current occupational status: unemployed Current occupational exposures/hazards: No Cognitive needs: No Hearing needs: No Vision needs: No Meds Allergies Allergy/AdvReac Type Severity Reaction Status Date / Time amoxicillin Allergy Unknown hives Verified 05/27/25 00:20 Penicillins (PENICILLINS) Allergy Unknown ANAPHYLAXIS Verified 05/27/25 00:20 red dye (RED DYE) Allergy Unknown UNKNOWN Verified 05/27/25 00:20 shrimp (SHRIMP) Allergy Unknown UNKNOWN Verified 05/27/25 00:20 Sulfa (Sulfonamide Allergy Unknown hives Verified 05/27/25 00:20 Antibiotics) sulfamethoxazole (From Allergy Unknown UNKNOWN Verified 05/27/25 00:20 BACTRIM) trimethoprim (From BACTRIM) Allergy Unknown UNKNOWN Verified 05/27/25 00:20 Biaxin Allergy Unknown hives Uncoded 05/27/25 00:20 SEAFOOD Allergy Unknown UNKNOWN Uncoded 05/27/25 00:20 Active Medications: Current Medications Octreotide Acetate 500 mcg/ (Sodium Chloride) 501 mls @ 50.1 mls/hr IVCONT .Q10H MICHAEL Last Admin: 05/27/25 01:20 Dose: 50 mcg/hr, 50.1 mls/hr Ketamine HCl 500 mg/ Sodium (Chloride) 255 mls @ 27.336 mls/hr IVCONT .Q9H20M MICHAEL; Protocol Last Admin: 05/27/25 06:56 Dose: Not Given Fentanyl (Sublimaze/Ns) 1,000 mcg in 100 mls @ 0 mls/hr IVCONT .Q0M MICHAEL; Protocol Levofloxacin (Levaquin) 500 mg in 100 mls @ 100 mls/hr IV Q24H MICHAEL Last Infusion: 05/27/25 03:34 Dose: Infused Vasopressin (Vasostrict) 20 unit in 100 mls @ 6 mls/hr IVCONT .[id number] MICHAEL; Protocol Last Infusion: 05/27/25 07:56 Dose: 0 unit/min, 0 mls/hr Pantoprazole Sodium 80 mg/ (Sodium Chloride) 100 mls @ 10 mls/hr IV .Q10H MICHAEL Last Admin: 05/27/25 03:33 Dose: 8 mg/hr, 10 mls/hr Albumin Human (Kedbumin 25 %) 100 mls @ 100 mls/hr IV Q6H MICHAEL Stop: 05/27/25 22:59 Last Infusion: 05/27/25 06:11 Dose: Infused Propofol (Diprivan) 1,000 mg in 100 mls @ 0 mls/hr IVCONT .Q0M MICHAEL; Protocol Last Admin: 05/27/25 07:34 Dose: 50 mcg/kg/min, 40.2 mls/hr Calcium Gluconate (Calcium Gluconate) 2 gm in 100 mls @ 50 mls/hr IV ONCE ONE Stop: 05/27/25 09:14 Last Admin: 05/27/25 07:53 Dose: 50 mls/hr Lactated Ringer's (Lr) 1,000 mls @ 100 mls/hr IVCONT .Q10H MICHAEL Last Admin: 05/27/25 07:52 Dose: 100 mls/hr Norepinephrine Bitartrate (Levophed) 8 mg in 250 mls @ 0 mls/hr IVCONT .Q0M MICHAEL; Protocol Home Medications ?Medication ?Instructions ?Recorded ?Confirmed ?Last Taken ?Type cholecalciferol (vitamin D3) 50 50 mcg PO DAILY 08/05/24 05/27/25 05/20/25 History mcg (2,000 unit) capsule cyanocobalamin (vitamin B-12) 1,000 mcg PO DAILY 08/05/24 05/27/25 05/20/25 History 1,000 mcg tablet (Vitamin B-12) multivitamin 1 tab PO DAILY 08/05/24 05/27/25 05/20/25 History thiamine HCl (vitamin B1) 100 mg 100 mg PO DAILY 08/05/24 05/27/25 05/20/25 History tablet (Vitamin B-1) atomoxetine 10 mg capsule 40 mg PO DAILY 05/22/25 05/27/25 05/20/25 History ibuprofen 200 mg tablet 400 mg PO Q8H PRN Pain (Scale 05/22/25 05/27/25 Unknown History Score 4-6) Physical Exam Vital Signs: Vital Signs: Last Vital Signs Temp 96.6 F L 05/27/25 08:00 Pulse 99 05/27/25 08:00 Resp 16 05/27/25 08:00 BP 99/47 L 05/27/25 08:00 Pulse Ox 98 05/27/25 08:00 O2 Del Method Mechanical Ventil ation 05/27/25 08:00 O2 Flow Rate 25 05/27/25 07:00 FiO2 25 05/27/25 08:00 BMI result Body Mass Index 42.4 General:? Intubated and sedated, Skin:? jaundice, Intact, no lesions, edema, erythema, clubbing or cyanosis.? No ulcers. HEENT:? Head is normocephalic, atraumatic, pupils equal. Buccal mucosa is dry.? Cardiac:? Tachycardic at 110 beats per minute, no murmurs, rubs, gallops. Pulmonary:? Diminished lung sounds bilaterally fine expiratory wheezing bilaterally .? No crackles, rales or rhonchi. Abdomen:? Large, distended, no bowel sounds appreciated. ? Musculoskeletal:? Passive range of motion of all 4 extremities reveal no cogwheeling or crepitus at the major joints of all extremities.? No leg edema, no asymmetry. Neurologic:? As above.? No focal deficits noted. Vascular:? 2+ pulses upper and lower extremities distally.? Less than 2nd capillary refill of fingers and toes bilaterally upper and lower extremities Results Labs 05/27/25 08:08 05/27/25 05:57 Labs: Short CBC 05/27/25 05/27/25 05/27/25 Range/Units 00:29 02:30 05:57 WBC 17.2 H 17.6 H (4.8-10.8) X10*3/uL Hgb 5.9 L* D 8.9 L D 7.5 L (14.0-18.0) g/dl Hct 17.1 L* D 25.6 L D 20.6 L* (42.0-52.0) % Plt Count 222 D 105 L D (160-400) X10*3/uL BMP 05/27/25 05/27/25 00:29 05:57 Sodium 137 137 Potassium 3.4 3.4 Chloride 103 102 Carbon Dioxide 17 L 16 L BUN 7 L 7 L Creatinine 0.81 0.99 Calcium 6.3 L D 5.9 L* D Liver Function 05/27/25 05/27/25 Range/Units 00:29 05:57 Total Bilirubin 11.9 H 10.5 H (0.0-1.0) mg/dL AST 200 H 151 H (5-37) U/L ALT 52 H 35 (0-40) U/L Alkaline Phosphatase 221 H 163 H (39-117) U/L Albumin 1.6 L 2.2 L (3.5-5.0) g/dL Assessment and Plan (1) Alcoholic cirrhosis: Qualifiers: Ascites presence: with ascites Qualified Code(s): K70.31 - Alcoholic cirrhosis of liver with ascites Status: Acute (2) Abdominal ascites: Qualifiers: Ascites type: due to alcoholic cirrhosis Qualified Code(s): K70.31 - Alcoholic cirrhosis of liver with ascites Status: Acute (3) Acute upper gastrointestinal hemorrhage: Status: Acute Plan 29 YM with alcoholism, alcohol withdrawal seizures, anemia, morbid obesity with BMI of 40, hyperparathyroidism, vitamin-D deficiency, anxiety, gastric sleeve 10 years ago at [facility] admitted to [facility] ICU early this am with severe UGI bleeding. Pt continues to drink In the ED he was noted to be hypotensive, massive transfusion protocol was started, given that his INR was elevated a couple days ago case central was ordered, Levaquin.? The patient has subsequently intubated for airway protection and further management. ? Labs showed white count 17.2, H and H of 5.9 and 70.1 respectively, platelets 222, INR 2.9, PTT 33.8.? Sodium 137, potassium 3.4, chloride 103, carbon dioxide 17, anion gap 20, BUN 7, creatinine 0.81.? Lactic acid 13.7, calcium 6.3, total bilirubin 11.9, HCT 200, ALT 52, albumin 1.6.? Blood type O positive with antibody negative. ? The patient was started on Levophed, He was transferred to the ICU for further care. Patient has been transfused 6 units of packed red blood cells, FFP and platelets overnight.- Daily MELD labs UGI bleeding likely from esophageal or gastric varices or peptic ulcer disease (hx of Ibuprofen use per pt's Dad) RECOMMENDATIONS: 1. Agree with IV PPI, octreotide infusion and pressors. 2. Transfuse 2 additional units of PRBC and monitor CBC Q 6 hrly x 24 hrs 3. Urgent EGD this am after resuscitation with blood products and IV erythromycin. EGD procedure and potential complications including bleeding, perforation, reaction to anesthetics and aspiration were reviewed with the patient's dad and informed consent was obtained. Procedures Date of Service Date of Service: 05/27/25
[2025-05-27 08:29] LABS: Hemoglobin 7.4 g/dl (14.0-18.0)
[2025-05-27 08:31] LABS: Hematocrit 20.8 % (42.0-52.0)
[2025-05-27] MEDS: fentaNYL citrate/NS 1,000 MCG/100 ML PLAST..BAG 10 MCG IVCONT (10:01)
--- NOTE | 2025-05-27 10:06 | MHC.CM.PN ---
CM MET WITH PT'S FATHER AT BEDSIDE. PT IS CURRENTLY INTUBATED AND SEDATED. PT LIVES WITH FATHER AND USES A CANE PRN FOR MOBILITY. PT HAS NO SERVICES. PER FATHER, HE BELIEVES PT HAS A HCP ON FILE, CM WILL VERIFY. PCP RISHI BARRIOS [employer] DP: HOME, NO SERVICES IS THE GOAL, PT WILL NEED FURTHER EVAL ONCE EXTUBATED AND CONDITION STABILIZES. PT'S FATHER WILL TRANSPORT. CM WILL CONTINUE TO FOLLOW FOR ANY CHANGES TO DC PLANS/NEEDS.
--- NOTE | 2025-05-27 12:07 | MHC.CLN ---
CONSULT PT MAY REQUIRE ALTERNATIVE NUTRITION R/T PROLONGED NPO STATUS SECONDARY TO GIB AND INTUBATION PT IS CURRENTLY NPO INTUBATED AND SEDATED IF TPN NEEDED; PLEASE CONSULT RD FOLLOWING FOR DIET ADVANCEMENT SEE FULL ASSESSMENT
--- NOTE | 2025-05-27 13:28 | W.PM.OPN ---
Operative Note Operative Note Date of Service: 05/27/25 Narrative: FLEXIBLE TRANSORAL UPPER GASTROINTESTINAL ENDOSCOPY WITH HEMOSPRAY Pre-op diagnosis: Cirrhosis with UGI bleeding Post-op diagnosis: Hiatal hernia, severe erosive esophagitis, multiple clots in the esophagus and stomach Endoscopist:Barry Curtis MD Anesthesia:?Pt was in the ICU intubated and sedated with propofol UPPER ENDOSCOPY Consent: Indications for the procedure and potential complications of bleeding, perforation, reaction to medications and missed diagnosis were discussed with the patient and informed consent was obtained. Instrument: Olympus GIF H 190 mid size upper endoscope Monitoring: Vital signs and clinical assessment, continuous EKG monitoring, Pulse oximetry, Carbon Dioxide monitoring and blood pressure monitoring were done throughout the procedure. Procedure: The patient was placed in the left lateral decubitis position and pre-procedure medications were administered and a bite block was placed. The endoscope was inserted into the mouth and advanced under direct vision to the third part of duodenum. A careful inspection was made as the upper endoscope was withdrawn including a retroflexed examination of the proximal stomach; Findings and interventions are described below. Findings: Larynx: ET tube in place Esophagus: Multiple large clots in the distal esophagus - some were flushed and pu pushed into the stomach and some clots were aspirated and removed with the endoscope. GE junction at 37 cms, hiatal hernia 37 to 42 cms. Severe erosive esophagitis (Grade D) from 30-37 cms with ulcers covered with exudate. No esophageal varices seen. No active oozing or potential bleeding source visualized in the esophagus though exam was somewhat compromised due to presence of multiple clots which could not be cleared completely Hemo spray was applied to the distal esophagus at the end of the procedure. Stomach: Moderate portal hypertensive gastropathy involving the entire gastric mucosa without bleeding. No ulcers visualized in the antrum. Unable to exclude gastric varices on retroflexed examination due to presence of a large clot in the fundal area. Duodenum: Normal bulb and descending duodenum - no ulcers visualized in the duodenal bulb Intervention: Hemo spray was applied to the distal esophagus. Impression and Post Procedure Diagnosis: Endoscopy Findings: ESOPHAGUS: hiatal hernia 37 to 42 cms. Severe erosive esophagitis (Grade D) from 30-37 cms with ulcers covered with exudate. No esophageal varices seen. No active oozing or potential bleeding source visualized in the esophagus though exam was somewhat compromised due to presence of multiple clots which could not be cleared completely STOMACH: Moderate portal hypertensive gastropathy involving the entire gastric mucosa without bleeding. No ulcers visualized in the antrum. Unable to exclude gastric varices on retroflexed examination due to presence of a large clot in the fundal area DUODENUM: Normal Upper GI bleeding likely from a Radha-Blount tear Plan: 1. Monitor CBC and transfuse prn 2. Continue IV PPI and octreotide infusion 3. 2nd look EGD on 05/28/[address] angio in case of rebleeding Above findings were reviewed with the patient's dad.
--- NOTE | 2025-05-27 13:29 | PM.EVENT ---
Event Note Date of Service: 05/27/25 Event Note: EGD showed: 1. Multiple large clots in the esophagus 2. Hiatal hernia with severe erosive esophagitis 3. No esophageal varices, gastric or duodenal ulcers seen 4. No active bleeding seen Hemospray applied to the distal esophagus IMP: UGI bleeding likely from a MW tear. NO esophageal varices seen Gastric varices not excluded due to a large clot in the fundus RECOMMENDATIONS: 1. Repeat CBC now 2. If pt remains stable without further bleeding, 2nd look EGD tomorrow 3. CT angio in case of rebleeding Time Spent With Patient Time: Total time managing care of this patient today ____ minutes.
[2025-05-27] MEDS: fentaNYL citrate/NS 1,000 MCG/100 ML PLAST..BAG 20 MCG IVCONT ×3 (13:35→23:20)
[2025-05-27 13:41] LABS: Hematocrit 26.7 % (42.0-52.0); Hemoglobin 9.8 g/dl (14.0-18.0)
[2025-05-27 13:59] LABS: Anion Gap 21 (12-20); Blood Urea Nitrogen 8 mg/dL (9-16); Calcium 6.6 mg/dL (8.4-10.2); Carbon Dioxide 19 mmol/L (22-29); Chloride 101 mmol/L (96-108); Creatinine Clr Calc Pharmacy 129.3; Estimated Glomerular Filt Rate > 60; Potassium 3.8 mmol/L (3.3-5.1); Sodium 137 mmol/L (135-145)
[2025-05-27 14:11] LABS: INR Whole Blood 2.1 (0.9-1.1); Prothrombin Time Whole Blood 25.3 sec (11.1-13.5)
--- NOTE | 2025-05-27 15:16 | HO.WOUND ---
Wound Consult: Initial 29yr old? male admitted to [facility] on 05/27/25 01:25- See progress notes and H&P for detailed history.? Wound consult placed for Adhesive reaction to tele leads.? Patient intubated in ICU father at bedside agreeable to assessment. Patients father reports his son does not seem to have other adhesive related injuries however the observe red sites on his chest are from his last admission not todays admission. He reports the sites did not blister and or open but were red and clearly in relation to the lead placement. See photos below. ? Chest Etiology: ?MARSI (Medical ?Adhesive Related Skin Injury) Wound Bed: intact red dry demarcated edges in shape of tele lead pad Drainage / Odor: None Edges: ? attached Radha wound: ?intact No Induration, Fluctuance or Warmth noted Goals of Treatment: ? Skin prep prior to adhesive use including Tele leads and rotate sites often. Recommendations: 1. Turn and Reposition every 2 hours and as needed for patient comfort.? Use pillows or wedges to support off loading positions. 2. Off Load all bony prominences with use of pillows and heel boots if needed.? Apply Preventative foams where needed. ? 3. Monitor for incontinence and moisture control, use barrier creams when needed for prevention and treatment. 4. Provide adequate and supplemental nutrition.? 5. Order or Continue low air loss mattress. 6. When applicable maintain blood glucose levels per Providers order. Chest Sites - Do not apply adhesive directly to patient?s skin.? Apply skin prep prior to tele pad and rotate site Q shift. ? Re-consult wound care Nurse for wound deterioration or wound changes.
--- NOTE | 2025-05-27 16:35 | W.PM.CCHP ---
Procedures Date of Service Date of Service: 05/27/25 Central Line Placement Left IJ: Consent for Procedure: Elective - informed consent obtained Time out performed: Yes Sterile Technique Used: Yes Patient placed on monitor/pulse ox: Yes MD prep: mask, gown and gloves Central line prep: Povidone-Iodine 1% Ultrasound used for placement: Yes Central line lumen inserted: triple Post procedure: sutured in place, good blood return, all ports aspirated, flushed, capped and sterile dressing applied Post procedure x-ray: tip of catheter in good position and no pneumothorax seen Patient tolerated procedure: well and no complications
[2025-05-27 17:09] LABS: Hematocrit 23.0 % (42.0-52.0); Hemoglobin 8.7 g/dl (14.0-18.0)
--- NOTE | 2025-05-27 19:12 | PC.NURSE ---
Assumed care at 0700- pt. Intubated and sedated with propofol and fentanyl gtts per MAR. Initially on vaso gtt, cross titrated to levophed gtt- see MAR. pt. Continues to have intmt adeola red blood with clots draining from mouth- MD aware, pt. suctioned PRN. 0800 CBC obtained- see results. 1 unit FFP and 2 units RBCs given per TAR. Pt. continues on octreotide and protonix gtts. at approx 1215 GI MD and OR staff at bedside to perform bedside EGD- see report. IVP Succinylcholine given per MAR for procedure tolerance. TLC to L IJ placed by diesel truck driver, R Femoral TLC removed. CXR obtained- see report. Pt. opens eyes intermittently to noxious stimuli, tracks, nods head Y/N, follows some commands but becomes anxious and thrashes head and hands. JAIMES. SR/ST on tele, HR 90s-110s. Tolerating ACVC vent settings- see vent assessment. Scant rust colored inline secretions, bloody oral secretions decreasing through this shift. No OGT in place. Pt. with large amt dark red liquid stool- fecal management system placed and patent. Johnson remains in place, draining dark orange/ tea colored urine, minimal output (0-5cc/hr)- MD aware. Allergic reaction/ welts to chest from previous telemetry leads- engineering faculty member at bedside to assess- see note. Q2 oral care and repositioning performed. Family at bedside, updated by this RN and MD. Plan of care ongoing.
[2025-05-27] MEDS: Furosemide 40 MG/4 ML VIAL IVPUSH (20:08)
[2025-05-27] MEDS: Albumin Human 25 % 100 ML 133.33 ML IV ×2 (20:28→21:13)
[2025-05-27 20:53] LABS: Hematocrit 22.8 % (42.0-52.0); Hemoglobin 8.7 g/dl (14.0-18.0)
[2025-05-27 21:06] LABS: Alanine Aminotransferase 86 U/L (0-40); Albumin Level 3.0 g/dL (3.5-5.0); Alkaline Phosphatase 147 U/L (39-117); Anion Gap 19 (12-20); Aspartate Amino Transferase 488 U/L (5-37); Blood Urea Nitrogen 10 mg/dL (9-16); Calcium 6.7 mg/dL (8.4-10.2); Carbon Dioxide 21 mmol/L (22-29); Chloride 101 mmol/L (96-108); Creatinine Clr Calc Pharmacy 107.0; Estimated Glomerular Filt Rate 60; Magnesium 1.8 mg/dL (1.6-2.6); Potassium 3.6 mmol/L (3.3-5.1); Sodium 137 mmol/L (135-145); Total Protein 5.0 g/dL (6.5-8.0)
[2025-05-27] MEDS: Norepinephrine Bitartrate/NS 32 MG/250 ML PLAST..BAG 18.22 MG IVCONT (21:11)
[2025-05-27] MEDS: dexmedeTOMIDine HCL/NS 400 MCG/100 ML PLAST..BAG 33.5 MCG IVCONT (21:14)
[2025-05-27] MEDS: dexmedeTOMIDine HCL/NS 400 MCG/100 ML PLAST..BAG 40.2 MCG IVCONT (23:19)
[2025-05-28] VITALS (52 sets, daily range): BP systolic 101–130; BP diastolic 51–70; PULSE 82–97; RESP 8–19; TEMP 34.8–38.2; O2SAT 86–99; BMI 43.2
[2025-05-28] MEDS: dexmedeTOMIDine HCL/NS 400 MCG/100 ML PLAST..BAG 33.5 MCG IVCONT ×8 (02:14→22:00)
[2025-05-28] MEDS: Albumin Human 25 % 100 ML IV ×2 (02:55→16:52)
[2025-05-28] MEDS: fentaNYL citrate/NS 1,000 MCG/100 ML PLAST..BAG 20 MCG IVCONT ×4 (04:22→18:13)
[2025-05-28] MEDS: Furosemide 100 MG/10 ML VIAL 80 MG IVPUSH ×2 (04:46→17:23)
[2025-05-28] MEDS: Albuterol Sulfate (0.083%) 2.5 MG/3 ML VIAL.NEB INHALE (04:47)
[2025-05-28] MEDS: Pantoprazole Sodium 80 MG in 0.9 % Sodium Chloride 80 ML 10 MG IV ×3 (05:09→23:39)
[2025-05-28 05:14] LABS: VBG HCO3 27 mmol/L (22-26); VBG O2 % Saturation 81.0 %
[2025-05-28 05:30] LABS: Alanine Aminotransferase 75 U/L (0-40); Albumin Level 4.2 g/dL (3.5-5.0); Alkaline Phosphatase 124 U/L (39-117); Anion Gap 19 (12-20); Aspartate Amino Transferase 474 U/L (5-37); Blood Urea Nitrogen 10 mg/dL (9-16); Calcium 6.9 mg/dL (8.4-10.2); Carbon Dioxide 22 mmol/L (22-29); Chloride 99 mmol/L (96-108); Creatinine Clr Calc Pharmacy 92.8; Estimated Glomerular Filt Rate 50; Magnesium 1.8 mg/dL (1.6-2.6); Potassium 3.3 mmol/L (3.3-5.1); Sodium 137 mmol/L (135-145); Total Protein 6.1 g/dL (6.5-8.0)
[2025-05-28 05:33] LABS: Venous Blood Gas Refer to POC result
[2025-05-28 05:48] LABS: Hemoglobin 7.7 g/dl (14.0-18.0); Mean Corpuscular HGB Conc 37.4 g/dl (31.0-36.0); Mean Corpuscular Hemoglobin 34.1 pg (27.0-33.0); Mean Corpuscular Volume 91.2 fL (80.0-98.0); NRBC Abs Auto 0.070 X10*3/uL (0.0-0.012); NRBC Pct Auto 0.6 /100WBC (0.0-0.2); PLT CLUMP 1; Red Blood Count 2.26 X10*6/uL (4.60-5.80)
[2025-05-28 05:49] LABS: Platelet Count 75 X10*3/uL (160-400); White Blood Count 12.4 X10*3/uL (4.8-10.8)
[2025-05-28 05:50] LABS: Hematocrit 20.6 % (42.0-52.0)
[2025-05-28 06:11] LABS: Band Neutrophils Percent 4 % (3-5); Eosinophils Absolute Manual 0.1 X10*3/uL (0.0-0.4); Eosinophils Percent Manual 1 % (0-4); Lymphocytes Absolute Manual 0.6 X10*3/uL (1.2-4.9); Lymphocytes Percent Manual 5 % (20-40); Macrocytosis 1+ (5-14) /OIF; Microcytosis 1+ (5-14) /OIF; Monocytes Absolute Manual 0.2 X10*3/uL (0.1-1.2); Monocytes Percent Manual 2 % (2-11); Neutrophils Absolute Manual 11.4 X10*3/uL (2.0-8.3); Neutrophils Percent Manual 88 % (45-73); RBC Morphology NOTED
[2025-05-28 06:12] LABS: Burr Cells 1+ (0-2) /OIF; Large Platelet PRESENT; Ovalocytes 1+ (5-14) /OIF; Schistocytes 1+ (0-2) /OIF; Spherocytes 1+ (0-2) /OIF
[2025-05-28 06:13] LABS: Target Cells 1+ (5-14) /OIF
[2025-05-28 06:14] LABS: Hypochromasia 1+ (5-14) /OIF; Polychromasia 1+ (0-2) /OIF
[2025-05-28 06:16] LABS: Smudge Cells PRESENT; Toxic Vacuolation PRESENT
--- NOTE | 2025-05-28 06:36 | PC.NURSE ---
Assumed care at 1900. Upon initial assessment, patient intubated and sedated, propofol and fentanyl gtts running per OCT. Patient easily arousable to light verbal stimuli, able to open eyes and track speaker. Patient nods and shakes head to yes/no questions, but quickly becomes anxious and agitated, thrashing head and extremities. Precedex gtt added per OCT with good effect. SR/ST on tele depending on level of alertness, levophed gtt running per OCT for BP support. Per STEFANI Mota, switched to 4x concentrated Levo. Appreciable pitting edema to BLE and hips, small amount of weeping. Patient mechanically ventilated, minimal?in-line james secretions, notable decrease in bloody oral secretions, see vent assessment for details. Abdomen large and round, hypoactive bowel sounds x4. No OGT per STEFANI r/t risk of bleeding/esophagitis,?FMS intact and patent with small amount of tarry loose stools. Protonix and octreotide gtts running per OCT. Johnson catheter in place draining minimal amount of dark, tea colored urine. 40mg Lasix admin per STEFANI Mota (see MAR) to encourage diuresis with some effect. Skin warm and edematous, scattered bruises and small red patches to chest from old telemetry leads (see wound note). Patient repositioned Q2HR, bed locked in lowest possible position, bed alarm on. Patient's father at bedside updated by this RN and STEFANI Mota on plan of care and patient status.? Approx 0430: patient noted to be hypoxic, RT notified and to bedside. Patient suctioned, lavaged, and FiO2 titrated with minimal improvement. Wheezing auscultated, albuterol ordered and administered, see MAR. STEFANI Mota notified of increasing FiO2 requirements, PA to bedside to assess. 80mg lasix IVP ordered and administered per OCT with good effect. LR stopped per STEFANI Mota for concern of fluid overload. Patient's father remains at bedside, updated by this RN.?
[2025-05-28 06:56] LABS: INTERNATIONAL NORM RATIO 2.6 (0.9-1.1); Prothrombin Time 29.3 SEC (10.9-12.4)
--- NOTE | 2025-05-28 08:50 | PM.CCPN ---
Subjective Subjective Date of Service: 05/28/25 Interval History: Continues to be on ventilator support, on propofol, fentanyl and Precedex for anxiolysis and sedation On Levophed and octreotide for vasopressor support Critical Care Time (minutes): 35 Physical Exam Vital Signs: Vital Signs: Last Vital Signs Temp 99.3 F 05/28/25 08:00 Pulse 91 05/28/25 08:00 Resp 19 05/28/25 08:00 BP 120/62 05/28/25 08:00 Pulse Ox 92 05/28/25 08:00 O2 Del Method Mechanical Ventil ation 05/28/25 08:00 O2 Flow Rate 25 05/27/25 07:00 FiO2 50 05/28/25 08:34 BMI result Body Mass Index 43.2 General: Middle-aged male in severe acute distress, ill appearing and tired appearing Nutritional Appearance: well nourished and overweight Eyes: appearance normal, both eyes and all related structures; Alignment and Position: alignment normal and position normal Neck: No lymphadenopathy, no thyromegaly Resp: bilateral air entry equal, occasional added sounds present Cardio: Regular rate, regular rhythm; Heart sounds: S1 normal heart sound present and S2 normal heart sound present GI: soft, nontender, distended no guarding, no hepatosplenomegaly : bladder normal to inspection, bladder normal to palpation, no renal angle tenderness Skin: no rashes or lesions noted and elasticity normal Neuro: oriented to person, oriented to place, oriented to time and moves all extremities Objective Data Labs 05/28/25 12:33 05/28/25 12:33 Labs: Laboratory Results - last 24 hr 05/27/25 05/27/25 05/27/25 00:25 00:29 13:35 WBC RBC Hgb Hct MCV MCH MCHC RDW Plt Count MPV Immature Gran % (Auto) Neut % (Auto) Lymph % (Auto) [place] % (Auto) Eos % (Auto) Baso % (Auto) Lymph # (Auto) [place] # (Auto) Eos # (Auto) Baso # (Auto) Abs Immat Gran (auto) Absolute Neuts (auto) Absolute Nucleated RBC Nucleated RBC % (auto) Neutrophils % (Manual) Band Neutrophils % Lymphocytes % (Manual) Monocytes % (Manual) Eosinophils % (Manual) Abs Neuts (Manual) Lymphocytes # (Manual) Monocytes # (Manual) Eosinophils # (Manual) Smudge Cells Toxic Vacuolation Platelet Estimate Large Platelets Plt Morphology Comment RBC Morphology Polychromasia Hypochromasia Microcytosis Macrocytosis Spherocytes Target Cells Ovalocytes [place] Cells Schistocytes PT (Fingerstick) 25.3 H PT INR (Fingerstick) 2.1 H INR VBG pH VBG pCO2 VBG pO2 VBG HCO3 VBG O2 Saturation VBG Base Excess Sodium 137 Potassium 3.8 Chloride 101 Carbon Dioxide 19 L Anion Gap 21 H BUN 8 L Creatinine 1.15 Estim Creat Clear Calc 129.3 Estimated GFR > 60 Random Glucose 112 Calcium 6.6 L D Phosphorus Magnesium Total Bilirubin AST ALT Alkaline Phosphatase Total Protein Albumin Blood Type O Positive Antibody Screen NEGATIVE Crossmatch See Detail 05/27/25 05/27/25 05/27/25 13:36 16:58 20:18 WBC RBC Hgb 9.8 L D 8.7 L 8.7 L Hct 26.7 L D 23.0 L 22.8 L MCV MCH MCHC RDW Plt Count MPV Immature Gran % (Auto) Neut % (Auto) Lymph % (Auto) [place] % (Auto) Eos % (Auto) Baso % (Auto) Lymph # (Auto) [place] # (Auto) Eos # (Auto) Baso # (Auto) Abs Immat Gran (auto) Absolute Neuts (auto) Absolute Nucleated RBC Nucleated RBC % (auto) Neutrophils % (Manual) Band Neutrophils % Lymphocytes % (Manual) Monocytes % (Manual) Eosinophils % (Manual) Abs Neuts (Manual) Lymphocytes # (Manual) Monocytes # (Manual) Eosinophils # (Manual) Smudge Cells Toxic Vacuolation Platelet Estimate Large Platelets Plt Morphology Comment RBC Morphology Polychromasia Hypochromasia Microcytosis Macrocytosis Spherocytes Target Cells Ovalocytes [place] Cells Schistocytes PT (Fingerstick) PT INR (Fingerstick) INR VBG pH VBG pCO2 VBG pO2 VBG HCO3 VBG O2 Saturation VBG Base Excess Sodium 137 Potassium 3.6 Chloride 101 Carbon Dioxide 21 L Anion Gap 19 BUN 10 Creatinine 1.39 Estim Creat Clear Calc 107.0 Estimated GFR 60 Random Glucose 129 H Calcium 6.7 L Phosphorus 3.3 Magnesium 1.8 Total Bilirubin 14.9 H AST 488 H ALT 86 H Alkaline Phosphatase 147 H Total Protein 5.0 L Albumin 3.0 L Blood Type Antibody Screen Crossmatch 05/28/25 05/28/25 05/28/25 04:51 05:09 06:45 WBC 12.4 H RBC 2.26 L Hgb 7.7 L Hct 20.6 L* MCV 91.2 MCH 34.1 H MCHC 37.4 H RDW 22.6 H Plt Count 75 L D MPV 9.2 L Immature Gran % (Auto) Cancelled Neut % (Auto) Cancelled Lymph % (Auto) Cancelled [place] % (Auto) Cancelled Eos % (Auto) Cancelled Baso % (Auto) Cancelled Lymph # (Auto) Cancelled [place] # (Auto) Cancelled Eos # (Auto) Cancelled Baso # (Auto) Cancelled Abs Immat Gran (auto) Cancelled Absolute Neuts (auto) Cancelled Absolute Nucleated RBC 0.070 H Nucleated RBC % (auto) 0.6 H Neutrophils % (Manual) 88 H Band Neutrophils % 4 Lymphocytes % (Manual) 5 L Monocytes % (Manual) 2 Eosinophils % (Manual) 1 Abs Neuts (Manual) 11.4 H Lymphocytes # (Manual) 0.6 L Monocytes # (Manual) 0.2 Eosinophils # (Manual) 0.1 Smudge Cells PRESENT Toxic Vacuolation PRESENT Platelet Estimate DECREASED Large Platelets PRESENT Plt Morphology Comment NOTED RBC Morphology NOTED Polychromasia 1+ (0-2) Hypochromasia 1+ (5-14) Microcytosis 1+ (5-14) Macrocytosis 1+ (5-14) Spherocytes 1+ (0-2) Target Cells 1+ (5-14) Ovalocytes 1+ (5-14) [place] Cells 1+ (0-2) Schistocytes 1+ (0-2) PT (Fingerstick) PT 29.3 H D INR (Fingerstick) INR 2.6 H VBG pH 7.50 H VBG pCO2 34 VBG pO2 49 VBG HCO3 27 H VBG O2 Saturation 81.0 VBG Base Excess 4.4 Sodium 137 Potassium 3.3 Chloride 99 Carbon Dioxide 22 Anion Gap 19 BUN 10 Creatinine 1.62 H Estim Creat Clear Calc 92.8 Estimated GFR 50 Random Glucose 99 Calcium 6.9 L Phosphorus 2.9 Magnesium 1.8 Total Bilirubin 13.7 H AST 474 H ALT 75 H Alkaline Phosphatase 124 H Total Protein 6.1 L Albumin 4.2 Blood Type Antibody Screen Crossmatch Progress Note: A&P Assessment and plan (1) Acute blood loss anemia: Status: Acute (2) Upper GI bleed: Status: Acute (3) Alcoholic liver failure: Status: Acute (4) Alcoholic cirrhosis: Status: Acute Plan Neuro: Acute encephalopathy possibly due to metabolic encephalopathy On propofol for sedation, as needed fentanyl for analgesia, Precedex for anxiolysis Close neurological status monitoring in the ICU every hour Cardiac: Hemorrhage Shock: Possibly secondary to upper GI bleed and acute blood loss anemia On Levophed support 0.19, titrate Levophed to keep map above 65 mm Hg Respiratory: Acute hypoxemic respiratory failure due to aspiration pneumonia Currently on ventilator support On PRVC mode FiO2 60%, PEEP 5, TV 400, RR 20 Peak pressures and plateau pressures are under the curve Ventilator management bundle with head end elevation, aspiration precaution, chlorhexidine mouthwash, daily awakening trials, daily spontaneous breathing trials GI: Upper GI bleed: Unclear etiology, underwent upper GI endoscopy yesterday which showed massive blood clots but no active signs of bleeding We will do a repeat upper GI endoscopy today Decompensated liver cirrhosis: Has a ascites, encephalopathy, secondary to alcoholic liver disease We will do lactulose as tolerated once the upper GI bleeding is resolved Renal: Acute kidney injury possibly secondary to ATN will give albumin followed by lasix Baseline creatinine normal, creatinine today is 1.6 We will closely monitor I's and O's Avoid nephrotoxic medications Heme: Acute blood loss anemia: no transfusion overnight Received 7 PRBC, 5 FFP and 2 platelet transusion so far. closely monitor H&H, transfuse for hemoglobin less than 7 grams/deciliter Endocrine: Blood sugars under control Sliding scale insulin as needed Infectious disease: Pending pancultures On Levaquin and Flagyl Musculoskeletal: Decubitus ulcer prevention protocol Lines: Left IJ TLC placed on 05/27/2025 Johnson catheter Prophylaxis: Lovenox, pantoprazole Quality Stroke Does the patient have a stroke diagnosis?: No VTE Prior VTE?: No VTE Risk Level:: Medical - moderate - high VTE Device Contraindication: N/A - Device Ordered VTE Drug Contraindication: Treatment Not Indicated
[2025-05-28 10:18] LABS: Hemoglobin 7.8 g/dl (14.0-18.0)
[2025-05-28 10:24] LABS: Hematocrit 20.3 % (42.0-52.0)
[2025-05-28] MEDS: Norepinephrine Bitartrate/NS 32 MG/250 ML PLAST..BAG 9.42 MG IVCONT (11:38)
--- NOTE | 2025-05-28 11:44 | MHC.CLN ---
F/U PT REMAINS INTUBATED AND SEDATED DISCUSSED AT ROUNDS WITH PT IS DAY 2 NPO PT MAY REQUIRE ALTERNATIVE NUTRITION R/T PROLONGED NPO STATUS SECONDARY TO GIB AND INTUBATION IF TPN NEEDED; RECOMMEND TPN AT 45ML/HR TO PROVIDE 767KCALS, 162G DEXTROSE, 54G PROTEIN REPLETE LYTES NEEDED FOLLOWING FOR DIET ADVANCEMENT RD CAN BE REACHED VIA TIGER CONNECT DURING OFF HOURS IF NEEDED
[2025-05-28 12:37] LABS: MANUAL DIFF FLAG NO
[2025-05-28 12:40] LABS: Hematocrit 22.7 % (42.0-52.0); Hemoglobin 8.5 g/dl (14.0-18.0); Imm Gran Abs Auto 0.15 X10*3/uL (0.00-0.03); Imm Gran Pct Auto 1.3 % (0.0-0.4); Lymphocytes Absolute Auto 2.3 X10*3/uL (1.2-4.9); Mean Corpuscular HGB Conc 37.4 g/dl (31.0-36.0); Mean Corpuscular Hemoglobin 33.9 pg (27.0-33.0); Mean Corpuscular Volume 90.4 fL (80.0-98.0); NRBC Abs Auto 0.070 X10*3/uL (0.0-0.012); NRBC Pct Auto 0.6 /100WBC (0.0-0.2); Platelet Count 65 X10*3/uL (160-400); Red Blood Count 2.51 X10*6/uL (4.60-5.80); White Blood Count 11.4 X10*3/uL (4.8-10.8)
[2025-05-28 12:59] LABS: Anion Gap 17 (12-20); Blood Urea Nitrogen 11 mg/dL (9-16); Calcium 6.8 mg/dL (8.4-10.2); Carbon Dioxide 23 mmol/L (22-29); Chloride 100 mmol/L (96-108); Creatinine Clr Calc Pharmacy 85.0; Estimated Glomerular Filt Rate 45; Potassium 3.2 mmol/L (3.3-5.1); Sodium 137 mmol/L (135-145)
[2025-05-28 13:35] LABS: Ammonia 85 umol/L (13-55)
--- NOTE | 2025-05-28 15:09 | MHC.SHP ---
Pre-Procedural Eval Section A - 24 Hr Update-Section A only Date of Service: 05/28/25 The patient is an INPATIENT: Yes Changes since office visit: Yes New Medical Problems, Yes Changes in Medication and Yes Patient answered all questions; No Cold of Flu in the past 2 weeks The patient has been examined within 24 hours of the surgical procedure. The History & Physical has been completed within 30 days and I have reviewed it.: Yes Section B - Complete if H&P > 30 days Chief Complaint: Acute GIB Allergies: Allergies Allergy/AdvReac Type Severity Reaction Status Date / Time amoxicillin Allergy Unknown hives Verified 05/27/25 00:20 Penicillins (PENICILLINS) Allergy Unknown ANAPHYLAXIS Verified 05/27/25 00:20 red dye (RED DYE) Allergy Unknown UNKNOWN Verified 05/27/25 00:20 shrimp (SHRIMP) Allergy Unknown UNKNOWN Verified 05/27/25 00:20 Sulfa (Sulfonamide Allergy Unknown hives Verified 05/27/25 00:20 Antibiotics) sulfamethoxazole (From Allergy Unknown UNKNOWN Verified 05/27/25 00:20 BACTRIM) trimethoprim (From BACTRIM) Allergy Unknown UNKNOWN Verified 05/27/25 00:20 Biaxin Allergy Unknown hives Uncoded 05/27/25 00:20 SEAFOOD Allergy Unknown UNKNOWN Uncoded 05/27/25 00:20 Plan Diagnosis/Plan: Unchanged I have reviewed the history and physical and performed a pertinent physical examination on my patient. No changes have occurred unless specified. Time Spent With Patient Time: Total time managing care of this patient today ____ minutes.
--- NOTE | 2025-05-28 15:35 | MHC.CM.PN ---
EMR REVIEWED AND PER MD ROUNDS, PT REMAINS IN ICU ON VENTILATORY/PRESSOR SUPPORT. PLAN FOR EGD TODAY. CM WILL CONTINUE TO FOLLOW FOR DC PLAN/NEEDS.
--- NOTE | 2025-05-28 16:09 | W.PM.OPN ---
Operative Note Operative Note Date of Service: 05/28/25 Narrative: FLEXIBLE TRANSORAL UPPER GASTROINTESTINAL ENDOSCOPY WITH BAND LIGATION Pre-op diagnosis: UGI bleed (2nd look EGD) Post-op diagnosis: Hiatal hernia, ulcerated esophageal varices Endoscopist:Barry Curtis MD Anesthesia: Pt was in the ICU intubated and sedated with propofol? UPPER ENDOSCOPY Consent: Indications for the procedure and potential complications of bleeding, perforation, reaction to medications and missed diagnosis were discussed with the patient's Dad and informed consent was obtained. Instrument: Olympus GIF H 190 mid size upper endoscope Monitoring: Vital signs and clinical assessment, continuous EKG monitoring, Pulse oximetry, Carbon Dioxide monitoring and blood pressure monitoring were done throughout the procedure. Procedure: The patient was placed in the left lateral decubitis position and pre-procedure medications were administered and a bite block was placed. The endoscope was inserted into the mouth and advanced under direct vision to the third part of duodenum. A careful inspection was made as the upper endoscope was withdrawn including a retroflexed examination of the proximal stomach; Findings and interventions are described below. Findings: Larynx: ET tube in place Esophagus: A few clots and residual hemospray noted in the distal esophagus and hiatal hernia sac - clots were flushed and pushed into the stomach. GE junction at 37 cms, hiatal hernia 37 to 42 cms. Grade 3-4 four column esophageal varices noted from 30-37 cms covered with ulcers and exudate (not clearly visible on EGD yesterday due to presence of large blood clots) No active bleeding seen in the esophagus. Band ligation was performed and two bands were placed in the distal esophagus. Additional bands could not be placed due to extensive ulcerations. Stomach: Moderate portal hypertensive gastropathy involving the entire gastric mucosa in the gastric pouch without bleeding. No ulcers visualized in the antrum. Unable to exclude gastric varices on retroflexed examination due to presence of a large clot in the fundal area. Duodenum: Normal bulb and descending duodenum - no ulcers visualized in the duodenal bulb Intervention: Location of esophageal varices Impression and Post Procedure Diagnosis: Endoscopy Findings: ESOPHAGUS: A few clots and residual hemospray noted in the distal esophagus and hiatal hernia sac - clots were flushed and pushed into the stomach. GE junction at 37 cms, hiatal hernia 37 to 42 cms. Grade 3-4 four column esophageal varices noted from 30-37 cms covered with ulcers and exudate (not clearly visible on EGD yesterday due to presence of large blood clots). No active bleeding seen in the esophagus. Band ligation was performed and two bands were placed in the distal esophagus. STOMACH: Moderate portal hypertensive gastropathy involving the entire gastric mucosa in the gastric pouch without bleeding. Unable to exclude gastric varices on retroflexed examination due to presence of a large clot in the fundal area DUODENUM: Normal Upper GI bleeding likely from esophageal varices with ulcerations and exudate Plan: 1. Monitor CBC and transfuse prn 2. Continue IV PPI and octreotide infusion x 48 hours 3. Repeat EGD in 1 week if pt remains stable Above findings were reviewed with the patient's dad.
[2025-05-28 18:02] LABS: Hematocrit 22.9 % (42.0-52.0); Hemoglobin 8.2 g/dl (14.0-18.0)
--- NOTE | 2025-05-28 18:32 | PC.NURSE ---
Assumed care at 0700- pt remains intubated and sedated. 1 unit RBCs and 2 units FFP given this shift. Dr. Curtis at bedside at approx. 1400 to perform repeat EGD- see report. IVP Rocuronium given per OCT for procedure tolerance. Pt. with +Cough/gag/pain response, opens eyes with noxious stimuli, does not track or follow commands. SR on tele, HR 80s-90s. Levophed gtt weaned per OCT. Pt tolerating ACVC settings, increased O2 requirements. Scant rust inline secretions, LS dim. IVP lasix and albumin given per OCT. FMS in place, draining dark red liquid stool. Johnson draining dark yellow urine, marginal UO (0-50cc/hr)- MD aware. Q2 repositioning and oral care performed, Plan of care ongoing.
[2025-05-28 18:34] LABS: Alanine Aminotransferase 83 U/L (0-40); Albumin Level 4.4 g/dL (3.5-5.0); Alkaline Phosphatase 133 U/L (39-117); Anion Gap 17 (12-20); Aspartate Amino Transferase 514 U/L (5-37); Blood Urea Nitrogen 13 mg/dL (9-16); Calcium 6.9 mg/dL (8.4-10.2); Carbon Dioxide 23 mmol/L (22-29); Chloride 100 mmol/L (96-108); Creatinine Clr Calc Pharmacy 75.2; Estimated Glomerular Filt Rate 39; Potassium 3.1 mmol/L (3.3-5.1); Sodium 137 mmol/L (135-145); Total Protein 6.1 g/dL (6.5-8.0)
[2025-05-28] MEDS: Chlorhexidine Gluc Oral Rinse 15 ML MOUTHWASH BUCCAL (21:59)
[2025-05-28] MEDS: fentaNYL citrate/NS 1,000 MCG/100 ML PLAST..BAG 15 MCG IVCONT (22:59)
[2025-05-29] VITALS (36 sets, daily range): BP systolic 95–116; BP diastolic 44–60; PULSE 88–998; RESP 16–20; TEMP 33.1–38.6; O2SAT 92–98; BMI 43.2
[2025-05-29] MEDS: dexmedeTOMIDine HCL/NS 400 MCG/100 ML PLAST..BAG 20.1 MCG IVCONT (00:35)
[2025-05-29] MEDS: fentaNYL citrate/NS 1,000 MCG/100 ML PLAST..BAG 12.5 MCG IVCONT (05:20)
[2025-05-29 05:30] LABS: VBG HCO3 24 mmol/L (22-26); VBG O2 % Saturation 83.0 %
[2025-05-29 05:31] LABS: Venous Blood Gas Refer to POC result
[2025-05-29 05:34] LABS: MANUAL DIFF FLAG NO
[2025-05-29 05:36] LABS: Hematocrit 24.3 % (42.0-52.0); Hemoglobin 8.6 g/dl (14.0-18.0); Imm Gran Abs Auto 0.22 X10*3/uL (0.00-0.03); Imm Gran Pct Auto 1.6 % (0.0-0.4); Lymphocytes Absolute Auto 1.9 X10*3/uL (1.2-4.9); Mean Corpuscular HGB Conc 35.4 g/dl (31.0-36.0); Mean Corpuscular Hemoglobin 33.3 pg (27.0-33.0); Mean Corpuscular Volume 94.2 fL (80.0-98.0); NRBC Abs Auto 0.070 X10*3/uL (0.0-0.012); NRBC Pct Auto 0.5 /100WBC (0.0-0.2); Red Blood Count 2.58 X10*6/uL (4.60-5.80); White Blood Count 13.6 X10*3/uL (4.8-10.8)
[2025-05-29 05:52] LABS: Platelet Count 81 X10*3/uL (160-400)
[2025-05-29 06:11] LABS: Alanine Aminotransferase 85 U/L (0-40); Albumin Level 3.9 g/dL (3.5-5.0); Alkaline Phosphatase 132 U/L (39-117); Anion Gap 17 (12-20); Aspartate Amino Transferase 529 U/L (5-37); Blood Urea Nitrogen 15 mg/dL (9-16); Calcium 6.6 mg/dL (8.4-10.2); Carbon Dioxide 21 mmol/L (22-29); Chloride 102 mmol/L (96-108); Creatinine Clr Calc Pharmacy 57.6; Estimated Glomerular Filt Rate 29; Magnesium 1.7 mg/dL (1.6-2.6); Potassium 3.3 mmol/L (3.3-5.1); Sodium 137 mmol/L (135-145); Total Protein 5.4 g/dL (6.5-8.0)
[2025-05-29 06:27] LABS: Glucose, Whole Blood 111 mg/dL (60-115)
[2025-05-29] MEDS: dexmedeTOMIDine HCL/NS 400 MCG/100 ML PLAST..BAG 13.4 MCG IVCONT ×2 (06:52→17:09)
[2025-05-29 07:08] LABS: Glucose, Whole Blood 69 mg/dL (60-115)
--- NOTE | 2025-05-29 07:38 | PC.NURSE ---
Patient sedated on propofol, fentanyl, and Precedex infusions; RASS -4 to -5, titrated down as tolerated. Tmax 101.5 ?F via core bladder probe. NSR on tele, HR 80?90s. Levophed infusion titrated to maintain MAP >65. +2/3 BLE edema, L>R and scrotal edema present. ETT #7.5 at 26 cm at lip. On VCV; FiO2 titrated down as tolerated. NPO. FMS draining blood-tinged/black stool. Protonix and octreotide infusions per OCT. Indwelling urinary catheter in place; UOP 5?10 mL/hr, provider aware. Skin overall intact; see skin integrity assessment. Repositioned q2h with pillows/wedges; on IsoTour mattress. Family updated and aware of patient status and plan of care. Bed locked in lowest position, alarm on. See EMR/flowsheet for additional details.
[2025-05-29] MEDS: Dextrose 10 % 1,000 ML 40 ML IVCONT (07:59)
[2025-05-29] MEDS: Furosemide 100 MG/10 ML VIAL IVPUSH (07:59)
[2025-05-29] MEDS: Chlorhexidine Gluc Oral Rinse 15 ML MOUTHWASH BUCCAL ×3 (07:59→21:04)
--- NOTE | 2025-05-29 09:20 | PC.NURSE ---
Addendum entered by Alec Emery RN 05/30/25 17:21: NEDS ref # [id number] Addendum entered by Alec Emery RN 05/30/25 14:40: informed of pt's temp. per md administer half of IV tylenol d/t liver function and place ice packs. Addendum entered by Alec Emery RN 05/29/25 13:09: R dialysis cath placed by MD Saba, CT obtained and placement confirmed. Timeout was performed and pt's HCP consented and updated by MD at bedside. Pt to be dialyzed today. Addendum entered by Alec Emery RN 05/29/25 12:03: informed of low poc. per md increase d10 Addendum entered by Alec Emery RN 05/29/25 11:04: pt began to shake head, over breath and fight the vent. pt did not follow commands or open eyes. had minimal movement to b/l UE's. informed. drips increased/turned on to maintain sedation. Original Note: informed pt has no urine output, Cr level prior to lasix admin, POC and temp.
[2025-05-29] MEDS: Pantoprazole Sodium 80 MG in 0.9 % Sodium Chloride 80 ML 10 MG IV ×2 (09:49→19:12)
[2025-05-29] MEDS: Norepinephrine Bitartrate/NS 32 MG/250 ML PLAST..BAG 11.93 MG IVCONT (10:04)
--- NOTE | 2025-05-29 10:24 | P.PNCC_ITS ---
Subjective Subjective Date of Service: 05/29/25 Interval History: Continues to be on ventilator support Anuric and has severe anasarca, creatinine and liver function tests trending upwards Hemoglobin stable overnight Critical Care Time (minutes): 35 Physical Exam 2 Vital Signs: Vital Signs: Last Vital Signs Temp 101.3 F H 05/29/25 09:00 Pulse 93 05/29/25 10:04 Resp 16 05/29/25 09:00 BP 101/47 L 05/29/25 10:04 Pulse Ox 94 05/29/25 09:00 O2 Del Method Mechanical Ventil ation 05/29/25 09:00 O2 Flow Rate 25 05/27/25 07:00 FiO2 70 05/29/25 09:00 BMI result Body Mass Index 43.2 General: Young male in severe acute distress, anasarcic Nutritional Appearance: well nourished and overweight Eyes: appearance normal, both eyes and all related structures; Alignment and Position: alignment normal and position normal Neck: No lymphadenopathy, no thyromegaly Resp: bilateral air entry equal, occasional added sounds present Cardio: Regular rate, regular rhythm; Heart sounds: S1 normal heart sound present and S2 normal heart sound present GI: soft, nontender, no guarding, no hepatosplenomegaly : bladder normal to inspection, bladder normal to palpation, no renal angle tenderness Skin: no rashes or lesions noted and elasticity normal Neuro: Sedated, no focal deficits, moves all extremities Objective Data Labs 05/29/25 05:23 05/29/25 05:23 Labs: Laboratory Results - last 24 hr 05/27/25 05/28/25 05/28/25 00:29 10:04 12:32 WBC RBC Hgb 7.8 L Hct 20.3 L* MCV MCH MCHC RDW Plt Count MPV Immature Gran % (Auto) Neut % (Auto) Lymph % (Auto) [place] % (Auto) Eos % (Auto) Baso % (Auto) Lymph # (Auto) [place] # (Auto) Eos # (Auto) Baso # (Auto) Abs Immat Gran (auto) Absolute Neuts (auto) Absolute Nucleated RBC Nucleated RBC % (auto) VBG pH VBG pCO2 VBG pO2 VBG HCO3 VBG O2 Saturation VBG Base Excess Sodium Potassium Chloride Carbon Dioxide Anion Gap BUN Creatinine Estim Creat Clear Calc Estimated GFR POC Glucose Random Glucose Calcium Phosphorus Magnesium Total Bilirubin AST ALT Alkaline Phosphatase Ammonia 85 H Total Protein Albumin Blood Type O Positive Antibody Screen NEGATIVE Crossmatch See Detail 05/28/25 05/28/25 05/28/25 12:33 12:33 12:33 WBC 11.4 H RBC 2.51 L Hgb Cancelled 8.5 L Hct Cancelled 22.7 L MCV 90.4 MCH 33.9 H MCHC 37.4 H RDW 21.4 H Plt Count 65 L MPV 9.0 L Immature Gran % (Auto) 1.3 H Neut % (Auto) 69.5 Lymph % (Auto) 19.8 L [place] % (Auto) 7.7 Eos % (Auto) 1.6 Baso % (Auto) 0.1 Lymph # (Auto) 2.3 [place] # (Auto) 0.9 Eos # (Auto) 0.2 Baso # (Auto) 0.0 Abs Immat Gran (auto) 0.15 H Absolute Neuts (auto) 7.9 Absolute Nucleated RBC 0.070 H Nucleated RBC % (auto) 0.6 H VBG pH VBG pCO2 VBG pO2 VBG HCO3 VBG O2 Saturation VBG Base Excess Sodium 137 Potassium 3.2 L Chloride 100 Carbon Dioxide 23 Anion Gap 17 BUN 11 Creatinine 1.77 H Estim Creat Clear Calc 85.0 Estimated GFR 45 POC Glucose Random Glucose 87 Calcium 6.8 L Phosphorus Magnesium Total Bilirubin AST ALT Alkaline Phosphatase Ammonia Total Protein Albumin Blood Type Antibody Screen Crossmatch 05/28/25 05/29/25 05/29/25 17:56 05:23 05:26 WBC 13.6 H RBC 2.58 L Hgb 8.2 L 8.6 L Hct 22.9 L 24.3 L MCV 94.2 MCH 33.3 H MCHC 35.4 RDW 22.4 H Plt Count 81 L MPV 9.6 Immature Gran % (Auto) 1.6 H Neut % (Auto) 75.7 H Lymph % (Auto) 13.7 L [place] % (Auto) 7.2 Eos % (Auto) 1.3 Baso % (Auto) 0.5 Lymph # (Auto) 1.9 [place] # (Auto) 1.0 Eos # (Auto) 0.2 Baso # (Auto) 0.1 Abs Immat Gran (auto) 0.22 H Absolute Neuts (auto) 10.3 H Absolute Nucleated RBC 0.070 H Nucleated RBC % (auto) 0.5 H VBG pH 7.40 VBG pCO2 39 VBG pO2 53 VBG HCO3 24 VBG O2 Saturation 83.0 VBG Base Excess 0.3 Sodium 137 137 Potassium 3.1 L 3.3 Chloride 100 102 Carbon Dioxide 23 21 L Anion Gap 17 17 BUN 13 15 Creatinine 2.00 H 2.61 H Estim Creat Clear Calc 75.2 57.6 Estimated GFR 39 29 POC Glucose Random Glucose 69 40 L* Calcium 6.9 L 6.6 L Phosphorus 3.5 Magnesium 1.7 Total Bilirubin 13.8 H 14.5 H AST 514 H 529 H ALT 83 H 85 H Alkaline Phosphatase 133 H 132 H Ammonia Total Protein 6.1 L 5.4 L Albumin 4.4 3.9 Blood Type Antibody Screen Crossmatch 05/29/25 05/29/25 06:23 07:04 WBC RBC Hgb Hct MCV MCH MCHC RDW Plt Count MPV Immature Gran % (Auto) Neut % (Auto) Lymph % (Auto) [place] % (Auto) Eos % (Auto) Baso % (Auto) Lymph # (Auto) [place] # (Auto) Eos # (Auto) Baso # (Auto) Abs Immat Gran (auto) Absolute Neuts (auto) Absolute Nucleated RBC Nucleated RBC % (auto) VBG pH VBG pCO2 VBG pO2 VBG HCO3 VBG O2 Saturation VBG Base Excess Sodium Potassium Chloride Carbon Dioxide Anion Gap BUN Creatinine Estim Creat Clear Calc Estimated GFR POC Glucose 111 69 Random Glucose Calcium Phosphorus Magnesium Total Bilirubin AST ALT Alkaline Phosphatase Ammonia Total Protein Albumin Blood Type Antibody Screen Crossmatch Progress Note: A&P Assessment and plan (1) ADHD: Status: Acute (2) Hemorrhagic shock: Status: Acute (3) Acute upper gastrointestinal hemorrhage: Status: Acute (4) Upper GI bleed: Status: Acute (5) Bleeding esophageal varices: Status: Acute (6) Alcoholic cirrhosis: Status: Acute Plan Neuro: Acute encephalopathy possibly due to metabolic encephalopathy On propofol for sedation, as needed fentanyl for analgesia, Precedex for anxiolysis Close neurological status monitoring in the ICU every hour Cardiac: Hemorrhage Shock: Possibly secondary to upper GI bleed and acute blood loss anemia On Levophed support 0.19, titrate Levophed to keep map above 65 mm Hg Respiratory: Acute hypoxemic respiratory failure due to aspiration pneumonia Currently on ventilator support On PRVC mode FiO2 70%, PEEP 5, TV 400, RR 20 Peak pressures and plateau pressures are under the curve Ventilator management bundle with head end elevation, aspiration precaution, chlorhexidine mouthwash, daily awakening trials, daily spontaneous breathing trials GI: Upper GI bleed: Unclear etiology, underwent upper GI endoscopy on 05/27/2025 showed massive blood clots but no active signs of bleeding repeat upper GI endoscopy done on 05/28/2025 showed esophageal varices that was banded and there were esophageal ulcerations noted Currently hemoglobin trend stable possibly the bleeding has subsided. Decompensated liver cirrhosis: Has a ascites, encephalopathy, secondary to alcoholic liver disease Worsening transaminitis and hyperbilirubinemia secondary to alcoholic liver disease. AST 529, bilirubin 14 We will do lactulose as tolerated once the upper GI bleeding is resolved Renal: Acute kidney injury possibly secondary to ATN anuric and edematous, will place an HD line and intiate him on HD mainly for ultrafiltration. Baseline creatinine normal, creatinine today is 2.6 We will closely monitor I's and O's Avoid nephrotoxic medications Heme: Acute blood loss anemia: no transfusion overnight Received 7 PRBC, 5 FFP and 2 platelet transusion so far. closely monitor H&H, transfuse for hemoglobin less than 7 grams/deciliter Endocrine: Blood sugars under control Sliding scale insulin as needed Infectious disease: Pending pancultures On Levaquin and Flagyl Musculoskeletal: Decubitus ulcer prevention protocol Lines: Left IJ TLC placed on 05/27/2025 Johnson catheter Prophylaxis: Lovenox, pantoprazole Patient is critically ill with multiple organ failures including acute encephalopathy, shock on multiple vasopressor support, acute kidney injury needing initiation of renal replacement therapy, decompensated liver failure, upper GI bleed, acute respiratory failure on ventilator support. Total critical care time spent is about 50 minutes on ventilator management, sedation management, changing ventilator settings, close hemodynamic monitoring while patient is hypotensive and needing renal replacement therapy, vasopressor management, sedation management, review of labs and images at this time is excluding any procedural time. Quality Stroke Does the patient have a stroke diagnosis?: No VTE Prior VTE?: No VTE Risk Level:: Medical - moderate - high VTE Device Contraindication: N/A - Device Ordered VTE Drug Contraindication: Treatment Not Indicated
--- NOTE | 2025-05-29 11:40 | HO.POSTANES ---
Post Anesthesia Evaluation Post Anesthesia Evaluation Date of Service: 05/29/25 Vital Signs: Vital Signs Temp Pulse Resp BP Pulse Ox O2 Del Method FiO2 05/29/25 11:25 70 05/29/25 11:10 96 104/48 L 05/29/25 11:00 95 100/45 L 05/29/25 11:00 101.3 F H 96 16 104/48 L 95 Mechanical Ventilation 70 05/29/25 10:53 70 05/29/25 10:04 93 101/47 L 05/29/25 10:04 93 101/47 L 05/29/25 10:00 101.3 F H 95 16 105/48 L 95 Mechanical Ventilation 70 05/29/25 09:14 91 98/46 L 05/29/25 09:00 101.3 F H 91 16 102/48 L 94 Mechanical Ventilation 70 05/29/25 08:00 70 05/29/25 08:00 101.1 F H 92 16 105/50 L 94 Mechanical Ventilation 70 05/29/25 07:46 70 05/29/25 07:00 101.1 F H 94 16 104/53 L 94 Mechanical Ventilation 70 05/29/25 06:00 100.9 F H 91 16 105/49 L 93 Mechanical Ventilation 70 05/29/25 05:00 101.1 F H 91 16 101/49 L 92 Mechanical Ventilation 70 05/29/25 04:43 70 05/29/25 04:16 90 96/50 L 05/29/25 04:00 101.3 F H 91 16 95/49 L 96 Mechanical Ventilation 70 05/29/25 04:00 96 70 05/29/25 03:00 101.5 F H 91 16 97/54 L 95 Mechanical Ventilation 70 05/29/25 02:00 101.3 F H 91 16 99/55 L 94 Mechanical Ventilation 70 05/29/25 01:00 101.3 F H 91 16 103/57 L 94 05/29/25 00:52 80 05/29/25 00:00 95 80 05/29/25 00:00 100.9 F H 90 16 103/58 L 95 Large Bore Nasal Cannula 80 Anesthesia: Local (seems to be a case without anesth involvement) Mental Status: Sedated Pain Control: Satisfactory (impossible to eval) Nausea/Vomiting: None Hydration: Adequate Anesthesia-Related Issues: No Anes. Related Issues (still ventilated)
[2025-05-29 11:56] LABS: Glucose, Whole Blood 61 mg/dL (60-115)
[2025-05-29] MEDS: Artificial Tears 15 ML DROPS 1 DROP EYE-BOTH ×3 (13:03→22:15)
--- NOTE | 2025-05-29 13:07 | W.PM.CCHP ---
Procedures Date of Service Date of Service: 05/29/25 Central Line Placement Right IJ: Central Line Comments: Dialysis line placement Consent for Procedure: Elective - informed consent obtained Time out performed: Yes Sterile Technique Used: Yes Patient placed on monitor/pulse ox: Yes MD prep: mask, gown and gloves Central line prep: Povidone-Iodine 1%, Chlorhexidine scrub and sterile drapes applied Local anesthesia used: other anesthetic Ultrasound used for placement: Yes Central line lumen inserted: triple Post procedure: sutured in place, good blood return, all ports aspirated, flushed, capped and sterile dressing applied Post procedure x-ray: tip of catheter in good position and no pneumothorax seen Patient tolerated procedure: well and no complications
[2025-05-29 15:05] LABS: HBS Num1 7.58 mIU/mL (0-7.99); HBc Num1 0.11 S/CO (0.00-0.79); HBsAGNum1 0.41 S/CO (0.00-0.99); Hepatitis B Surface Antigen Negative (Negative); ~Hepatitis B Surface Antibody NONREACTIVE (Nonreactive)
[2025-05-29] MEDS: fentaNYL citrate/NS 1,000 MCG/100 ML PLAST..BAG 7.5 MCG IVCONT (17:09)
[2025-05-29 18:28] LABS: Glucose, Whole Blood 79 mg/dL (60-115)
[2025-05-29] MEDS: 0.9 % Sodium Chloride Flush 3 ML SYRINGE IVFLUSH (22:15)
[2025-05-29] MEDS: Dextrose 10 % 1,000 ML 60 ML IVCONT (22:33)
[2025-05-29 23:49] LABS: Glucose, Whole Blood 92 mg/dL (60-115)
[2025-05-30] VITALS (39 sets, daily range): BP systolic 96–112; BP diastolic 41–56; PULSE 94–110; RESP 16–21; TEMP 33.1–39.2; O2SAT 90–97; BMI 43.0
[2025-05-30] MEDS: dexmedeTOMIDine HCL/NS 400 MCG/100 ML PLAST..BAG 13.4 MCG IVCONT ×4 (00:11→19:04)
[2025-05-30] MEDS: Norepinephrine Bitartrate/NS 32 MG/250 ML PLAST..BAG 15.7 MG IVCONT (02:03)
[2025-05-30 05:02] LABS: VBG HCO3 24 mmol/L (22-26); VBG O2 % Saturation 82.0 %
[2025-05-30 05:02] LABS: Glucose, Whole Blood 95 mg/dL (60-115)
[2025-05-30 05:04] LABS: Venous Blood Gas Refer to POC result
[2025-05-30] MEDS: Artificial Tears 15 ML DROPS 1 DROP EYE-BOTH ×3 (05:08→17:08)
[2025-05-30] MEDS: Pantoprazole Sodium 80 MG in 0.9 % Sodium Chloride 80 ML 10 MG IV ×2 (05:09→14:09)
[2025-05-30 05:22] LABS: Hematocrit 25.7 % (42.0-52.0); Hemoglobin 8.9 g/dl (14.0-18.0); Imm Gran Abs Auto 0.30 X10*3/uL (0.00-0.03); Imm Gran Pct Auto 2.0 % (0.0-0.4); Lymphocytes Absolute Auto 2.3 X10*3/uL (1.2-4.9); MANUAL DIFF FLAG SCAN; Mean Corpuscular HGB Conc 34.6 g/dl (31.0-36.0); Mean Corpuscular Hemoglobin 32.5 pg (27.0-33.0); Mean Corpuscular Volume 93.8 fL (80.0-98.0); NRBC Abs Auto 0.050 X10*3/uL (0.0-0.012); NRBC Pct Auto 0.3 /100WBC (0.0-0.2); Platelet Count 107 X10*3/uL (160-400); Red Blood Count 2.74 X10*6/uL (4.60-5.80); SCAN SMEAR FLAG 1; White Blood Count 15.2 X10*3/uL (4.8-10.8)
[2025-05-30 05:41] LABS: Alanine Aminotransferase 71 U/L (0-40); Albumin Level 3.5 g/dL (3.5-5.0); Alkaline Phosphatase 146 U/L (39-117); Anion Gap 17 (12-20); Aspartate Amino Transferase 402 U/L (5-37); Blood Urea Nitrogen 14 mg/dL (9-16); Calcium 6.9 mg/dL (8.4-10.2); Carbon Dioxide 20 mmol/L (22-29); Chloride 100 mmol/L (96-108); Creatinine Clr Calc Pharmacy 48.6; Estimated Glomerular Filt Rate 24; Magnesium 1.7 mg/dL (1.6-2.6); Potassium 3.2 mmol/L (3.3-5.1); Sodium 134 mmol/L (135-145); Total Protein 5.7 g/dL (6.5-8.0)
[2025-05-30] MEDS: Potassium Chloride/H20 20 MEQ/100 ML PIGGYBACK 100 MEQ IV (06:52)
--- NOTE | 2025-05-30 07:13 | PC.NURSE ---
Upon initial assessment at 1900 ? patient sedated on propofol, fentanyl, and Precedex infusions; RASS -4 to -5, titrated down as tolerated. Tmax 101.3?F via core bladder probe. NSR on tele, HR 90s. Levophed infusion titrated to maintain MAP >65. ETT #7.5 at 26 cm at lip. On VCV; FiO2 titrated down as tolerated. NPO; D10W infusing per MAR, POC glucose checked q6hr. FMS draining blood-tinged/black stool. Protonix and octreotide infusing per OCT. Indwelling urinary catheter in place; anuric. Skin overall intact; see skin integrity assessment. Repositioned q2h with pillows/wedges; on IsoTour mattress. Family updated and aware of patient status and plan of care. Bed locked in lowest position, alarm on. See EMR/flowsheet for additional details.
[2025-05-30] MEDS: Calcium Gluconate/NaCl,Iso-Osm 2 GM/100 ML PLAST..BAG IV (08:07)
[2025-05-30] MEDS: Chlorhexidine Gluc Oral Rinse 15 ML MOUTHWASH BUCCAL ×3 (08:07→20:20)
[2025-05-30] MEDS: fentaNYL citrate/NS 1,000 MCG/100 ML PLAST..BAG 5 MCG IVCONT (11:01)
--- NOTE | 2025-05-30 12:12 | P.PNCC_ITS ---
Subjective Subjective Date of Service: 05/30/25 Interval History: Hemoglobin still remained stable overnight Slight improvement in the LFTs Received for session of dialysis yesterday Continues to be on ventilator support Critical Care Time (minutes): 35 Physical Exam 2 Vital Signs: Vital Signs: Last Vital Signs Temp 100.8 F H 05/30/25 11:53 Pulse 105 H 05/30/25 11:53 Resp 20 05/30/25 11:53 BP 100/47 L 05/30/25 11:53 Pulse Ox 94 05/30/25 11:53 O2 Del Method Mechanical Ventil ation 05/30/25 11:53 O2 Flow Rate 25 05/27/25 07:00 FiO2 60 05/30/25 11:53 BMI result Body Mass Index 43.0 General: Young male in severe acute distress, icteric Nutritional Appearance: well nourished and overweight Eyes: appearance normal, both eyes and all related structures; Alignment and Position: alignment normal and position normal Neck: No lymphadenopathy, no thyromegaly Resp: bilateral air entry equal, crackles heard Cardio: Regular rate, regular rhythm; Heart sounds: S1 normal heart sound present and S2 normal heart sound present GI: soft, distended, nontender, no guarding, no hepatosplenomegaly : bladder normal to inspection, bladder normal to palpation, no renal angle tenderness Skin: no rashes or lesions noted and elasticity normal Neuro: oriented to person, oriented to place, oriented to time and moves all extremities Objective Data Labs 05/30/25 04:56 05/30/25 04:56 Labs: Laboratory Results - last 24 hr 05/29/25 05/29/25 05/29/25 13:54 17:49 23:34 WBC RBC Hgb Hct MCV MCH MCHC RDW Plt Count MPV Immature Gran % (Auto) Neut % (Auto) Lymph % (Auto) [place] % (Auto) Eos % (Auto) Baso % (Auto) Lymph # (Auto) [place] # (Auto) Eos # (Auto) Baso # (Auto) Abs Immat Gran (auto) Absolute Neuts (auto) Absolute Nucleated RBC Nucleated RBC % (auto) Smear Tech's Comments VBG pH VBG pCO2 VBG pO2 VBG HCO3 VBG O2 Saturation VBG Base Excess Sodium Potassium Chloride Carbon Dioxide Anion Gap BUN Creatinine Estim Creat Clear Calc Estimated GFR POC Glucose 79 92 Random Glucose Calcium Phosphorus Magnesium Total Bilirubin AST ALT Alkaline Phosphatase Total Protein Albumin Hep Bs Antigen Negative Hep Bs Antibody NONREACTIVE Hep B Core Total Ab Nonreactive 05/30/25 05/30/25 05/30/25 04:56 04:57 04:59 WBC 15.2 H RBC 2.74 L Hgb 8.9 L Hct 25.7 L MCV 93.8 MCH 32.5 MCHC 34.6 RDW 22.8 H Plt Count 107 L D MPV 9.6 Immature Gran % (Auto) 2.0 H Neut % (Auto) 68.9 Lymph % (Auto) 15.3 L [place] % (Auto) 10.9 Eos % (Auto) 2.4 Baso % (Auto) 0.5 Lymph # (Auto) 2.3 [place] # (Auto) 1.7 H Eos # (Auto) 0.4 Baso # (Auto) 0.1 Abs Immat Gran (auto) 0.30 H Absolute Neuts (auto) 10.5 H Absolute Nucleated RBC 0.050 H Nucleated RBC % (auto) 0.3 H Smear Tech's Comments VERIFIED VBG pH 7.41 VBG pCO2 37 VBG pO2 52 VBG HCO3 24 VBG O2 Saturation 82.0 VBG Base Excess -0.2 Sodium 134 L Potassium 3.2 L Chloride 100 Carbon Dioxide 20 L Anion Gap 17 BUN 14 Creatinine 3.09 H Estim Creat Clear Calc 48.6 Estimated GFR 24 POC Glucose 95 Random Glucose 88 Calcium 6.9 L Phosphorus 3.2 Magnesium 1.7 Total Bilirubin 16.4 H AST 402 H ALT 71 H Alkaline Phosphatase 146 H Total Protein 5.7 L Albumin 3.5 Hep Bs Antigen Hep Bs Antibody Hep B Core Total Ab Progress Note: A&P Assessment and plan (1) Alcoholic hepatitis with ascites: Status: Acute (2) Hemorrhagic shock: Status: Acute (3) Alcohol use disorder: Status: Acute (4) Acute upper gastrointestinal hemorrhage: Status: Acute (5) Alcoholic cirrhosis: Status: Acute Plan 29-year-old male with PMH of alcohol-related cirrhosis, active alcohol drinker who drinks about a handle of vodka everyday was brought into the ED secondary to upper GI bleed needing massive transfusion, intubation and on ventilator support. Upper GI endoscope showed esophageal varices that has been banded, also has esophageal ulcers; currently hemoglobin trend stable. He has multiorgan dysfunction, oliguric CAIN initiated on hemodialysis since 05/29/2025. Neuro: Acute encephalopathy possibly due to metabolic encephalopathy On propofol for sedation, as needed fentanyl for analgesia, Precedex for anxiolysis Close neurological status monitoring in the ICU every hour Cardiac: Hemorrhage Shock: Possibly secondary to upper GI bleed and acute blood loss anemia On Levophed support 0.19, titrate Levophed to keep map above 65 mm Hg Respiratory: Acute hypoxemic respiratory failure due to aspiration pneumonia Currently on ventilator support On PRVC mode FiO2 60%, PEEP 5, TV 400, RR 20, still high FiO2, we will wean FiO2 as tolerated and possibly we will place him on pressor support trials tomorrow Peak pressures and plateau pressures are under the curve Ventilator management bundle with head end elevation, aspiration precaution, chlorhexidine mouthwash, daily awakening trials, daily spontaneous breathing trials GI: Upper GI bleed: Unclear etiology, underwent upper GI endoscopy on 05/27/2025 showed massive blood clots but no active signs of bleeding repeat upper GI endoscopy done on 05/28/2025 showed esophageal varices that was banded and there were esophageal ulcerations noted Currently hemoglobin trend stable since past 36 hours. Decompensated liver cirrhosis: Has a ascites, encephalopathy, secondary to alcoholic liver disease transaminitis and hyperbilirubinemia secondary to alcoholic liver disease slightly improving when compared to yesterday We will do lactulose as tolerated once the upper GI bleeding is resolved Renal: Acute kidney injury possibly secondary to ATN anuric and edematous, initiated on hemodialysis yesterday Baseline creatinine normal, creatinine today is 2.6 We will closely monitor I's and O's Avoid nephrotoxic medications Heme: Acute blood loss anemia: no transfusion for the past 36 hours Received 9 PRBC, 5 FFP and 2 platelet transusion so far. closely monitor H&H, transfuse for hemoglobin less than 7 grams/deciliter Endocrine: Blood sugars under control Sliding scale insulin as needed Infectious disease: Negative pancultures so far On Levaquin and Flagyl Musculoskeletal: Decubitus ulcer prevention protocol Lines: Left IJ TLC placed on 05/27/2025 Right IJ triple-lumen hemodialysis catheter placed on 05/29/2025 Johnson catheter Prophylaxis: SCD, pantoprazole Quality Stroke Does the patient have a stroke diagnosis?: No VTE Prior VTE?: No VTE Risk Level:: Medical - moderate - high VTE Device Contraindication: N/A - Device Ordered VTE Drug Contraindication: Treatment Not Indicated
[2025-05-30] MEDS: Dextrose 10 % 1,000 ML 60 ML IVCONT (12:30)
[2025-05-30 12:44] LABS: Glucose, Whole Blood 77 mg/dL (60-115)
[2025-05-30] MEDS: Norepinephrine Bitartrate/NS 32 MG/250 ML PLAST..BAG 19.47 MG IVCONT (16:15)
[2025-05-30 17:34] LABS: Glucose, Whole Blood 79 mg/dL (60-115)
[2025-05-31] VITALS (52 sets, daily range): BP systolic 87–157; BP diastolic 46–73; PULSE 11–108; RESP 16–21; TEMP 34.6–38.5; O2SAT 87–94; BMI 42.7
[2025-05-31] MEDS: Artificial Tears 15 ML DROPS 1 DROP EYE-BOTH ×5 (00:01→23:20)
[2025-05-31] MEDS: 0.9 % Sodium Chloride Flush 3 ML SYRINGE IVFLUSH ×4 (00:02→23:30)
[2025-05-31 00:14] LABS: Glucose, Whole Blood 80 mg/dL (60-115)
[2025-05-31] MEDS: fentaNYL citrate/NS 1,000 MCG/100 ML PLAST..BAG 5 MCG IVCONT (00:47)
[2025-05-31] MEDS: dexmedeTOMIDine HCL/NS 400 MCG/100 ML PLAST..BAG 13.4 MCG IVCONT ×2 (00:49→07:43)
[2025-05-31] MEDS: Norepinephrine Bitartrate/NS 32 MG/250 ML PLAST..BAG 21.98 MG IVCONT (02:28)
[2025-05-31] MEDS: Dextrose 10 % 1,000 ML 60 ML IVCONT (02:45)
[2025-05-31 04:50] LABS: VBG HCO3 20 mmol/L (22-26); VBG O2 % Saturation 79.0 %
[2025-05-31 05:03] LABS: Venous Blood Gas Refer to POC result
[2025-05-31 05:10] LABS: Hematocrit 27.9 % (42.0-52.0); Hemoglobin 9.3 g/dl (14.0-18.0); Mean Corpuscular HGB Conc 33.3 g/dl (31.0-36.0); Mean Corpuscular Hemoglobin 31.6 pg (27.0-33.0); Mean Corpuscular Volume 94.9 fL (80.0-98.0); NRBC Abs Auto 0.170 X10*3/uL (0.0-0.012); NRBC Pct Auto 1.0 /100WBC (0.0-0.2); Platelet Count 110 X10*3/uL (160-400); Red Blood Count 2.94 X10*6/uL (4.60-5.80); WBC ABN SCTR FOR CBC 1
[2025-05-31 05:11] LABS: White Blood Count 16.4 X10*3/uL (4.8-10.8)
[2025-05-31 05:31] LABS: Band Neutrophils Percent 14 % (3-5); Eosinophils Absolute Manual 0.3 X10*3/uL (0.0-0.4); Eosinophils Percent Manual 2 % (0-4); Lymphocytes Absolute Manual 0.5 X10*3/uL (1.2-4.9); Lymphocytes Percent Manual 3 % (20-40); Monocytes Absolute Manual 1.0 X10*3/uL (0.1-1.2); Monocytes Percent Manual 6 % (2-11); Neutrophils Absolute Manual 14.6 X10*3/uL (2.0-8.3); Neutrophils Percent Manual 75 % (45-73)
[2025-05-31 05:34] LABS: Alanine Aminotransferase 47 U/L (0-40); Albumin Level 3.0 g/dL (3.5-5.0); Alkaline Phosphatase 151 U/L (39-117); Anion Gap 20 (12-20); Aspartate Amino Transferase 279 U/L (5-37); Blood Urea Nitrogen 19 mg/dL (9-16); Burr Cells 2+ (3-5) /OIF; Calcium 6.8 mg/dL (8.4-10.2); Carbon Dioxide 17 mmol/L (22-29); Chloride 100 mmol/L (96-108); Creatinine Clr Calc Pharmacy 38.1; Estimated Glomerular Filt Rate 18; Large Platelet PRESENT; Magnesium 1.7 mg/dL (1.6-2.6); Polychromasia 1+ (0-2) /OIF; Potassium 3.5 mmol/L (3.3-5.1); RBC Morphology NOTED; Schistocytes 1+ (0-2) /OIF; Sodium 133 mmol/L (135-145); Spherocytes 1+ (0-2) /OIF; Target Cells 1+ (5-14) /OIF; Tear Drop Cells 1+ (0-2) /OIF; Total Protein 5.2 g/dL (6.5-8.0)
[2025-05-31 05:35] LABS: Hypochromasia 1+ (5-14) /OIF; Toxic Granulation PRESENT; Toxic Vacuolation PRESENT
[2025-05-31 06:13] LABS: Glucose, Whole Blood 75 mg/dL (60-115)
--- NOTE | 2025-05-31 06:35 | PC.NURSE ---
Assumed care of patient at 1900. Neuro: Patient currently sedated with propofol, fentanyl and precedex gtt per OCT. Febrile through the night, highest temp reaching 102.6. Patient on cooling blanket, and packed with ice. Temp slowly lowering throughout the night.? Cardiac: Sinus Tach on monitor. On levo gtt, titrated per OCT. Resp: mechanically ventilated. ACVC. Thick petty secretions when suctioned.? GI/: Pt anuric at this time. Minimal output, tea colored.? Endocrine: Q6 POC. POC @ 0000: 80. POC @ 0600: 75 . Patient remains on D10 @ 60/hr. Integumentary/Musculoskeletal:Pt is jaundice. Generalized anasarca, some weeping noted with repositioning. Scrota edema, elevated. Fungal rash in groin, nystatin applied. Blanchable redness to coccyx.? Psychosocial (family etc.): Family at bedside, updated throughout the night.? Central Lines: Left triple lumen IJ. Right IJ HD catheter.?
[2025-05-31] MEDS: Chlorhexidine Gluc Oral Rinse 15 ML MOUTHWASH BUCCAL ×3 (07:44→19:23)
--- NOTE | 2025-05-31 08:32 | P.PNCC_ITS ---
Subjective Subjective Date of Service: 05/31/25 Critical Care Time (minutes): 60 Physical Exam 2 Vital Signs: Vital Signs: Last Vital Signs Temp 99.7 F 05/31/25 08:00 Pulse 106 H 05/31/25 08:00 Resp 20 05/31/25 08:00 BP 101/51 L 05/31/25 08:00 Pulse Ox 92 05/31/25 08:00 O2 Del Method Mechanical Ventil ation 05/31/25 08:00 O2 Flow Rate 25 05/27/25 07:00 FiO2 50 05/31/25 08:00 BMI result Body Mass Index 42.7 Const: Other: intubated, sedated; appreciable jaundice General: no acute distress HEENT: Head: Yes normal to inspection, Yes normocephalic and Yes atraumatic Eyes: General: appearance normal, both eyes and all related structures Neck: Neck: Yes normal visual inspection, Yes full ROM, Yes no meningeal signs, Yes trachea midline and Yes supple Chest: Chest palpation & inspection: normal inspection of the chest Resp: Other: some appreciable rhonchi; no appreciable overt rales, wheezing Effort & Inspection: normal respiratory effort Cardio: Rate: regular rate Rhythm: regular rhythm GI: Inspection: Yes normal to inspection, No Abdominal wall edema and No distended Palpation (GI): Soft to palpation, not firm, nontender, no guarding and not rigid Skin: Other: appreciable jaundice throughout Neuro: General: tone normal and no meningeal signs Extrem: Other: appreciable non-pitting edema throughout General: Yes normal to inspection, Yes full ROM and Yes capillary refill normal Psych: Other: unable to assess Objective Data Labs 05/31/25 04:36 05/31/25 04:36 Labs: Laboratory Results - last 24 hr 05/30/25 05/30/25 05/31/25 12:40 17:27 00:11 WBC RBC Hgb Hct MCV MCH MCHC RDW Plt Count MPV Immature Gran % (Auto) Neut % (Auto) Lymph % (Auto) Coleman % (Auto) Eos % (Auto) Baso % (Auto) Lymph # (Auto) Coleman # (Auto) Eos # (Auto) Baso # (Auto) Abs Immat Gran (auto) Absolute Neuts (auto) Absolute Nucleated RBC Nucleated RBC % (auto) Neutrophils % (Manual) Band Neutrophils % Lymphocytes % (Manual) Monocytes % (Manual) Eosinophils % (Manual) Abs Neuts (Manual) Lymphocytes # (Manual) Monocytes # (Manual) Eosinophils # (Manual) Nucleated RBCs Toxic Granulation Toxic Vacuolation Platelet Estimate Large Platelets Plt Morphology Comment RBC Morphology Polychromasia Hypochromasia Spherocytes Pappenheimer Bodies Target Cells Tear Drop Cells Serjio Cells Schistocytes VBG pH VBG pCO2 VBG pO2 VBG HCO3 VBG O2 Saturation VBG Base Excess Sodium Potassium Chloride Carbon Dioxide Anion Gap BUN Creatinine Estim Creat Clear Calc Estimated GFR POC Glucose 77 79 80 Random Glucose Calcium Phosphorus Magnesium Total Bilirubin AST ALT Alkaline Phosphatase Total Protein Albumin 05/31/25 05/31/25 05/31/25 04:36 04:45 06:10 WBC 16.4 H RBC 2.94 L Hgb 9.3 L Hct 27.9 L MCV 94.9 MCH 31.6 MCHC 33.3 RDW 22.3 H Plt Count 110 L MPV 9.4 Immature Gran % (Auto) Cancelled Neut % (Auto) Cancelled Lymph % (Auto) Cancelled Coleman % (Auto) Cancelled Eos % (Auto) Cancelled Baso % (Auto) Cancelled Lymph # (Auto) Cancelled Coleman # (Auto) Cancelled Eos # (Auto) Cancelled Baso # (Auto) Cancelled Abs Immat Gran (auto) Cancelled Absolute Neuts (auto) Cancelled Absolute Nucleated RBC 0.170 H Nucleated RBC % (auto) 1.0 H Neutrophils % (Manual) 75 H Band Neutrophils % 14 H Lymphocytes % (Manual) 3 L Monocytes % (Manual) 6 Eosinophils % (Manual) 2 Abs Neuts (Manual) 14.6 H Lymphocytes # (Manual) 0.5 L Monocytes # (Manual) 1.0 Eosinophils # (Manual) 0.3 Nucleated RBCs 3 H Toxic Granulation PRESENT Toxic Vacuolation PRESENT Platelet Estimate SLIGHTLY DECREASED Large Platelets PRESENT Plt Morphology Comment NOTED RBC Morphology NOTED Polychromasia 1+ (0-2) Hypochromasia 1+ (5-14) Spherocytes 1+ (0-2) Pappenheimer Bodies PRESENT Target Cells 1+ (5-14) Tear Drop Cells 1+ (0-2) Serjio Cells 2+ (3-5) Schistocytes 1+ (0-2) VBG pH 7.32 VBG pCO2 39 VBG pO2 52 VBG HCO3 20 L VBG O2 Saturation 79.0 VBG Base Excess -4.6 Sodium 133 L Potassium 3.5 Chloride 100 Carbon Dioxide 17 L Anion Gap 20 BUN 19 H Creatinine 3.92 H Estim Creat Clear Calc 38.1 Estimated GFR 18 POC Glucose 75 Random Glucose 67 Calcium 6.8 L Phosphorus 3.5 Magnesium 1.7 Total Bilirubin 17.2 H AST 279 H ALT 47 H Alkaline Phosphatase 151 H Total Protein 5.2 L Albumin 3.0 L Progress Note: A&P Assessment and plan (1) Cirrhosis: Status: Acute (2) Bleeding esophageal varices: Status: Acute (3) Hemorrhagic shock: Status: Acute Plan Patient is a 29 Y M w/ alcohol misuse c/b prior withdrawal seizures, and morbid obesity, s/p gastric sleeve in 2014, presenting to ED on 05/27 w/ hematemesis, found?to be hypotensive, s/p massive transfusion protocol, and subsequently intubated; ICU course c/b persistent shock, c/f septic shock N: intubated, sedated w/ propofol, fentanyl, dexmedetomidine gtt, wean as tolerated CV: shock, likely multifactorial, hemorrhagic and septic, norepinephrine, vasopressin gtts, wean as tolerated, transfuse as needed R: acute hypoxic respiratory failure, c/f aspiration pneumonia, intubated 05/27, wean as tolerated GI: acute renal failure, initiated hemodialysis 05/29 : alcohol misuse c/b cirrhosis, esophageal?variceal bleed c/b hemorrhagic shock, s/p endoscopy 05/27 and 05/28 w/ banding, last transfusion 05/29 H: hemorrhagic shock, transfuse as needed; avoid chemical DVT prophylaxis, mechanical devices ID: c/f septic shock, empiric vanc/laurie E: to monitor hypo-/hyper-glycemia S: daily updates given to [facility] Quality Stroke Does the patient have a stroke diagnosis?: No VTE Prior VTE?: No VTE Risk Level:: Medical - moderate - high VTE Device Contraindication: N/A - Device Ordered VTE Drug Contraindication: Treatment Not Tolerated
--- NOTE | 2025-05-31 09:34 | P.CONNP_ITS ---
History of Present Illness Reason for Consult Consult date: 05/31/25 Reason for consult: Acute kidney injury Chief Complaint Chief complaint: Acute GIB History of Present Illness Narrative: 29-year-old male with underlying history of alcoholism, alcohol withdrawal seizures, anemia, morbid obesity with BMI of 40, hyperparathyroidism, vitamin-D deficiency, anxiety, gastric sleeve 10 years ago at [facility], presented to emergency room vomiting blood. Currently has been due to ICU. He has remained hypotensive. Developed anuria. He was started on hemodialysis on 05/29/2025 by ICU attending. Review of Systems Review of Systems Yes unobtainable due to endotracheal tube PMFSH Past Medical History Medical History Low back pain Morbid obesity with BMI of 40.0-44.9, adult Hyperparathyroidism Vitamin D deficiency Alcohol use disorder Weakness Anxiety ADHD Periodontitis Alcoholism Hernia Surgical History Surgical History H/O gastric sleeve Social History Social History Household Members: Unknown / Unable to assess Household Members Other:: Father, grandma and girlfriend Housing: Unknown / Unable to assess Do you presently have visiting nurse or other home services: No Alcohol intake: current Alcohol type: hard liquor Comment: refusing bed in lowest position, reports it is hard for him to get up. Patient Tobacco Use Status: Never used Tobacco e-Cigarette/Vaping Use: Never Used Substance Use Type: Marijuana service: No Current occupational status: unemployed Current occupational exposures/hazards: No Cognitive needs: No Hearing needs: No Vision needs: No Meds Allergies Allergy/AdvReac Type Severity Reaction Status Date / Time amoxicillin Allergy Unknown hives Verified 05/27/25 00:20 Penicillins (PENICILLINS) Allergy Unknown ANAPHYLAXIS Verified 05/27/25 00:20 red dye (RED DYE) Allergy Unknown UNKNOWN Verified 05/27/25 00:20 shrimp (SHRIMP) Allergy Unknown UNKNOWN Verified 05/27/25 00:20 Sulfa (Sulfonamide Allergy Unknown hives Verified 05/27/25 00:20 Antibiotics) sulfamethoxazole (From Allergy Unknown UNKNOWN Verified 05/27/25 00:20 BACTRIM) trimethoprim (From BACTRIM) Allergy Unknown UNKNOWN Verified 05/27/25 00:20 Biaxin Allergy Unknown hives Uncoded 05/27/25 00:20 SEAFOOD Allergy Unknown UNKNOWN Uncoded 05/27/25 00:20 Active Medications: Current Medications Artificial Tears (Artificial Tears 15 Ml Drops) 1 drop EYE-BOTH Q6H MICHAEL Last Admin: 05/31/25 05:23 Dose: 1 drop Chlorhexidine Gluconate (Chlorhexidine Gluc Oral Rinse 15 Ml Mouthwash) 15 ml BUCCAL TID MICHAEL Last Admin: 05/31/25 07:44 Dose: 15 ml Hydrocortisone Sodium Succinate (Hydrocortisone Sod Succ/Pf 100 Mg Vial) 50 mg IVPUSH Q6H MICHAEL Last Admin: 05/31/25 09:28 Dose: Not Given Hydromorphone HCl (Hydromorphone Hcl 0.5 Mg/0.5 Ml Syringe) 0.5 mg IVPUSH Q2H PRN; Protocol PRN Reason: Pain, Severe (Pain Scale 7-10) Fentanyl (Sublimaze/Ns) 1,000 mcg in 100 mls @ 0 mls/hr IVCONT .Q0M MICHAEL; Protocol Last Admin: 05/31/25 00:47 Dose: 50 mcg/hr, 5 mls/hr Propofol (Diprivan) 1,000 mg in 100 mls @ 0 mls/hr IVCONT .Q0M MICHAEL; Protocol Last Admin: 05/31/25 09:31 Dose: 30 mcg/kg/min, 24.12 mls/hr Norepinephrine Bitartrate (Levophed) 32 mg in 250 mls @ 0 mls/hr IVCONT .Q0M MICHAEL; Protocol Last Admin: 05/31/25 02:28 Dose: 0.35 mcg/kg/min, 21.98 mls/hr Octreotide Acetate 500 mcg/ (Sodium Chloride) 501 mls @ 50.1 mls/hr IVCONT .Q10H MICHAEL Last Admin: 05/31/25 03:45 Dose: 50 mcg/hr, 50.1 mls/hr Dextrose (D10) 1,000 mls @ 60 mls/hr IVCONT .[id number] MICHAEL Last Admin: 05/31/25 02:45 Dose: 60 mls/hr Vasopressin (Vasostrict) 20 unit in 100 mls @ 12 mls/hr IVCONT .Q8H20M MICHAEL; Protocol Vancomycin HCl (Vancomycin/Ns) 2,000 mg in 500 mls @ 250 mls/hr IV ONCE ONE Stop: 05/31/25 10:59 Dexmedetomidine HCl (Precedex) 400 mcg in 100 mls @ 0 mls/hr IVCONT .Q0M [facility]; Protocol Meropenem (Meropenem 500 Mg Vial) 500 mg IVPUSH Q8H [facility] Last Admin: 05/31/25 07:44 Dose: 500 mg Nystatin (Nystatin Powder 15 Gm Bottle) 1 appl TOPICAL BID MICHAEL; Protocol Last Admin: 05/31/25 07:44 Dose: 1 appl Pantoprazole Sodium (Pantoprazole Sodium 40 Mg/10 Ml Vial) 40 mg IVPUSH DAILY@0630 [facility] Last Admin: 05/31/25 05:23 Dose: 40 mg Pharmacy Consult (Consult Rx Vancomycin Dosing) 1 each MISCELLANE DAILY PRN PRN Reason: Consult order Sodium Chloride (0.9 % Sodium Chloride Flush 3 Ml Syringe) 3 ml IVFLUSH QSHIFT [facility] Last Admin: 05/31/25 07:46 Dose: 3 ml Home Medications ?Medication ?Instructions ?Recorded ?Confirmed ?Last Taken ?Type cholecalciferol (vitamin D3) 50 50 mcg PO DAILY 05/27/25 05/20/25 History mcg (2,000 unit) capsule cyanocobalamin (vitamin B-12) 1,000 mcg PO DAILY 08/0505/27/25 05/20/25 History 1,000 mcg tablet (Vitamin B-12) multivitamin 1 tab PO DAILY 08/05/2410/2005/20/25 History thiamine HCl (vitamin B1) 100 mg 100 mg PO DAILY 08/0505/27/25 05/20/25 History tablet (Vitamin B-1) atomoxetine 10 mg capsule 40 mg PO DAILY 05/22/2510/2005/20/25 History ibuprofen 200 mg tablet 400 mg PO Q8H PRN Pain (Scal e 05/22/25 05/27/25 Unknown History Score 4-6) Physical Exam Vital Signs: Last Vital Signs Temp 99.3 F 05/31/25 09:00 Pulse 106 H 05/31/25 09:00 Resp 16 05/31/25 09:00 BP 105/54 L 05/31/25 09:00 Pulse Ox 87 L 05/31/25 09:00 O2 Del Method Mechanical Ventilation 05/31/25 09:00 O2 Flow Rate 25 05/27/25 07:00 FiO2 50 05/31/25 09:00 BMI result Body Mass Index 42.7 Const General: ill appearing Neck Neck: Yes supple Resp Auscultation: clear to auscultation bilaterally Cardio Palpation: no palpable S3 Heart sounds: no rubs GI Palpation (GI): Soft to palpation Auscultation: normal bowel sounds Neuro Motor exam (neuro): no asterixis Results Lab Results 05/31/25 04:36 05/31/25 04:36 Lab results: Chemistry 05/28/25 05/28/25 05/29/25 12:33 17:56 05:23 Sodium 137 137 137 Potassium 3.2 L 3.1 L 3.3 Carbon Dioxide 23 23 21 L BUN 11 13 15 Creatinine 1.77 H 2.00 H 2.61 H Calcium 6.8 L 6.9 L 6.6 L Phosphorus 3.5 05/30/25 05/31/25 04:56 04:36 Sodium 134 L 133 L Potassium 3.2 L 3.5 Carbon Dioxide 20 L 17 L BUN 14 19 H Creatinine 3.09 H 3.92 H Calcium 6.9 L 6.8 L Phosphorus 3.2 3.5 Hematology 05/28/25 05/28/25 05/28/25 10:04 12:33 12:33 WBC 11.4 H Hgb 7.8 L Cancelled 8.5 L Plt Count 65 L 05/28/25 05/29/25 05/30/25 17:56 05:23 04:56 WBC 13.6 H 15.2 H Hgb 8.2 L 8.6 L 8.9 L Plt Count 81 L 107 L D 05/31/25 04:36 WBC 16.4 H Hgb 9.3 L Plt Count 110 L Assessment and Plan (1) CAIN (acute kidney injury): Status: Acute Plan CAIN most likely due to acute tubular necrosis in the setting of shock due to hypovolemia and hemorrhage, sepsis. Currently oliguric. No renal recovery yet. Plan Continue to maintain hemodynamic stability. Shall proceed with the dialysis today and remove fluid cautiously as tolerated. Continue to avoid nephrotoxic agents. Concur with other medical management and we will follow along with the team. Procedures Date of Service Date of Service: 05/31/25
[2025-05-31] MEDS: Vasopressin 20 UNIT/100 ML INFUS..BTL 12 UNIT IVCONT ×3 (09:43→23:18)
[2025-05-31] MEDS: Hydrocortisone Sod Succ/PF 100 MG VIAL IVPUSH (09:51)
[2025-05-31] MEDS: Albumin Human 25 % 50 ML 100 ML IV (09:52)
[2025-05-31] MEDS: Calcium Gluconate/NaCl,Iso-Osm 1 GM/50 ML PLAST..BAG IV (09:52)
--- NOTE | 2025-05-31 09:59 | MHC.CLN ---
F/U PT REMAINS INTUBATED AND SEDATED DISCUSSED WITH MD-PLAN TO START TPN PT REQUIRES ALTERNATIVE NUTRITION R/T PROLONGED NPO STATUS SECONDARY TO GIB AND INTUBATION PT IS DAY 5 NPO RECOMMEND TPN AT 45ML/HR TO PROVIDE 767KCALS, 162G DEXTROSE, 54G PROTEIN NOTED HD STARTED 05/29 HOLD TPN DURING HD REPLETE LYTES NEEDED
[2025-05-31] MEDS: vancomycin/NS 2,000 MG/500 ML PLAST..BAG 250 MG IV (10:08)
--- NOTE | 2025-05-31 10:34 | PHA.PROG ---
Admission Date/Time: May 27, 2025 01:25 Indication: (other) Weight in k kg Serum Creatinine - Last 168 Hours 05/27/25 05/27/25 05/27/25 00:29 05:57 13:35 Creatinine 0.81 0.99 1.15 05/27/25 05/28/25 05/28/25 20:18 04:51 12:33 Creatinine 1.39 1.62 H 1.77 H 05/28/25 05/29/25 05/30/25 17:56 05:23 04:56 Creatinine 2.00 H 2.61 H 3.09 H 05/31/25 04:36 Creatinine 3.92 H Estimated CrCl and GFR - Last 168 Hours 05/27/25 05/27/25 05/27/25 00:29 05:57 13:35 Estim Creat Clear Calc 183.7 150.3 129.3 Estimated GFR > 60 > 60 > 60 05/27/25 05/28/25 05/28/25 20:18 04:51 12:33 Estim Creat Clear Calc 107.0 92.8 85.0 Estimated GFR 60 50 45 05/28/25 05/29/25 05/30/25 17:56 05:23 04:56 Estim Creat Clear Calc 75.2 57.6 48.6 Estimated GFR 39 29 24 05/31/25 04:36 Estim Creat Clear Calc 38.1 Estimated GFR 18 Vancomycin Loading Dose: 2,000 mg Current Vancomycin Dosing Regimen: 1,000 mg q24h Vancomycin Monitoring using AUC goal of 400 - 600 range with trough as surrogate marker: 537, 18 Date and Time for next Vancomycin Level to be drawn: 06/02 @ 0800 Pharmacist Comments on Vancomycin Plan: Vancomycin dosing will take advantage of [employer] as a clinical decision support tool that uses Bayesian modeling to calculate individual patient's pharmacokinetic parameters and forecast the patient's drug concentration time course with the target goal AUC 24 range of 400 - 600 mg/L/hr.
[2025-05-31 11:38] LABS: Glucose, Whole Blood 68 mg/dL (60-115)
[2025-05-31] MEDS: Norepinephrine Bitartrate/NS 32 MG/250 ML PLAST..BAG 9.42 MG IVCONT (12:07)
[2025-05-31] MEDS: dexmedeTOMIDine HCL/NS 400 MCG/100 ML PLAST..BAG 13.5 MCG IVCONT ×2 (12:17→19:21)
--- NOTE | 2025-05-31 14:25 | MHC.CM.PN ---
Pt remains intubated following MTP d/t variceal bleeding - no plans to extubate today - CM to follow
[2025-05-31] MEDS: Hydrocortisone Sod Succ/PF 100 MG VIAL 50 MG IVPUSH ×2 (15:00→19:21)
[2025-05-31] MEDS: Dextrose 10 % 1,000 ML 75 ML IVCONT (16:33)
[2025-05-31 17:28] LABS: Glucose, Whole Blood 112 mg/dL (60-115)
--- NOTE | 2025-05-31 18:12 | PC.NURSE ---
Assumed care at 0700- pt remains intubated and sedated per OCT. RASS -4 for vent asynchrony. SR/ST on tele, HR ranging from 60s-100s through this shift. Vaso gtt added and levo weaned per OCT. Tolerating ACVC settings- see vent assessment. Pt. with thick petty/green inline secretions. SC sent to micro- results pending. 1200 POC 68, D10 gtt increased per OCT. 1800 POC 115. russo remains in place draining dark, tea colored urine. Pt. oliguric. payroll analyst at bedside to start Tx at approx. 1530. Q2 oral care and repositioning performed. Plan of care ongoing.
[2025-05-31] MEDS: Parenteral Nutrition 1,080 ML 45 ML IV (20:04)
[2025-05-31 21:50] LABS: Glucose, Whole Blood 139 mg/dL (60-115)
[2025-05-31 23:40] LABS: Glucose, Whole Blood 158 mg/dL (60-115)
[2025-06-01] VITALS (42 sets, daily range): BP systolic 102–136; BP diastolic 57–76; PULSE 62–78; RESP 12–20; TEMP 32.9–37.1; O2SAT 71–95; BMI 42.9
[2025-06-01] MEDS: Hydrocortisone Sod Succ/PF 100 MG VIAL 50 MG IVPUSH ×4 (02:15→20:15)
[2025-06-01] MEDS: dexmedeTOMIDine HCL/NS 400 MCG/100 ML PLAST..BAG 13.5 MCG IVCONT (02:45)
[2025-06-01 05:18] LABS: VBG HCO3 21 mmol/L (22-26); VBG O2 % Saturation 74.0 %
[2025-06-01 05:31] LABS: Venous Blood Gas Refer to POC result
[2025-06-01 05:53] LABS: Hematocrit 29.4 % (42.0-52.0); Hemoglobin 9.8 g/dl (14.0-18.0); Imm Gran Abs Auto 0.51 X10*3/uL (0.00-0.03); Imm Gran Pct Auto 2.2 % (0.0-0.4); Lymphocytes Absolute Auto 0.8 X10*3/uL (1.2-4.9); MANUAL DIFF FLAG SCAN; Mean Corpuscular HGB Conc 33.3 g/dl (31.0-36.0); Mean Corpuscular Hemoglobin 31.3 pg (27.0-33.0); Mean Corpuscular Volume 93.9 fL (80.0-98.0); NRBC Abs Auto 0.130 X10*3/uL (0.0-0.012); NRBC Pct Auto 0.6 /100WBC (0.0-0.2); Platelet Count 95 X10*3/uL (160-400); Red Blood Count 3.13 X10*6/uL (4.60-5.80); SCAN SMEAR FLAG 1; White Blood Count 23.5 X10*3/uL (4.8-10.8)
[2025-06-01 06:04] LABS: Triglycerides 262 mg/dL (<150)
[2025-06-01 06:05] LABS: Albumin Level 3.0 g/dL (3.5-5.0)
[2025-06-01] MEDS: Artificial Tears 15 ML DROPS 1 DROP EYE-BOTH ×4 (06:06→23:05)
[2025-06-01 06:08] LABS: Anion Gap 19 (12-20); Blood Urea Nitrogen 21 mg/dL (9-16); Calcium 7.0 mg/dL (8.4-10.2); Carbon Dioxide 19 mmol/L (22-29); Chloride 100 mmol/L (96-108); Creatinine Clr Calc Pharmacy 41.1; Estimated Glomerular Filt Rate 20; Magnesium 1.9 mg/dL (1.6-2.6); Potassium 4.1 mmol/L (3.3-5.1); Sodium 134 mmol/L (135-145)
--- NOTE | 2025-06-01 06:15 | PC.NURSE ---
Assumed care at 1900. Upon initial assessment, patient intubated and sedated, propofol and precedex gtts running per OCT. Patient RASS -4 r/t vent asynchrony.?SR on tele, 4x concentrated levophed gtt and vasopressin gtt running per OCT for BP support. Patient profoundly edematous, with areas of weeping. Mechanically ventilated, minimal in-line green secretions, see vent assessment for details. Abdomen large and round, hypoactive bowel sounds x4, no BM this shift. TPN regimen?started, see MAR. Per [employer] TECHNICAL OFFICER Jamie D10 gtt stopped. Johnson catheter in place draining minimal amount of dark, tea colored urine. Skin warm and edematous, scattered bruises and small red patches to chest from old telemetry leads (see wound note). Blanchable redness to buttocks, maceration and fungal rash to mery area and pannus fold, nystatin and interdry per MAR. Patient repositioned Q2HR, bed locked in lowest possible position, bed alarm on. Patient's family at bedside updated by this RN plan of care and patient status.? ?
[2025-06-01] MEDS: Vasopressin 20 UNIT/100 ML INFUS..BTL 12 UNIT IVCONT ×3 (07:38→21:58)
[2025-06-01] MEDS: 0.9 % Sodium Chloride Flush 3 ML SYRINGE IVFLUSH ×3 (08:08→23:06)
[2025-06-01] MEDS: Calcium Gluconate/NaCl,Iso-Osm 1 GM/50 ML PLAST..BAG IV (08:08)
[2025-06-01] MEDS: Albumin Human 25 % 50 ML 100 ML IV ×2 (08:08→08:52)
[2025-06-01] MEDS: Chlorhexidine Gluc Oral Rinse 15 ML MOUTHWASH BUCCAL ×3 (08:09→20:14)
--- NOTE | 2025-06-01 08:19 | P.PNCC_ITS ---
Subjective Subjective Date of Service: 06/01/25 Interval History: no significant overnight events Critical Care Time (minutes): 60 Physical Exam 2 Vital Signs: Vital Signs: Last Vital Signs Temp 98.6 F 06/01/25 08:00 Pulse 76 06/01/25 08:00 Resp 16 06/01/25 08:00 BP 126/68 06/01/25 08:00 Pulse Ox 91 L 06/01/25 08:00 O2 Del Method Mechanical Ventil ation 06/01/25 08:00 O2 Flow Rate 25 05/27/25 07:00 FiO2 50 06/01/25 08:00 BMI result Body Mass Index 42.9 Const: Other: intubated, sedated; no appreciable spontaneous movements; appreciable jaundice throughout General: no acute distress HEENT: Head: Yes normal to inspection, Yes normocephalic and Yes atraumatic Eyes: General: appearance normal, both eyes and all related structures Neck: Neck: Yes normal visual inspection, Yes full ROM, Yes no meningeal signs, Yes trachea midline and Yes supple Chest: Chest palpation & inspection: normal inspection of the chest Resp: Other: some appreciable rhonchi; no appreciable overt rales, wheezing Effort & Inspection: normal respiratory effort Cardio: Rate: regular rate Rhythm: regular rhythm GI: Inspection: Yes normal to inspection, No Abdominal wall edema and No distended Palpation (GI): Soft to palpation, not firm, nontender, no guarding and not rigid Skin: Other: appreciable jaundice throughout Neuro: General: tone normal and no meningeal signs Extrem: Other: appreciable anasarca General: Yes normal to inspection, Yes full ROM and Yes capillary refill normal Psych: Other: unable to assess Objective Data Labs 06/01/25 04:50 06/01/25 04:50 Labs: Laboratory Results - last 24 hr 05/31/25 05/31/25 05/31/25 04:36 11:35 17:25 WBC RBC Hgb Hct MCV MCH MCHC RDW Plt Count MPV Immature Gran % (Auto) Neut % (Auto) Lymph % (Auto) [place] % (Auto) Eos % (Auto) Baso % (Auto) Lymph # (Auto) [place] # (Auto) Eos # (Auto) Baso # (Auto) Abs Immat Gran (auto) Absolute Neuts (auto) Absolute Nucleated RBC Nucleated RBC % (auto) Smear Tech's Comments Smear Path Review SEE NOTE VBG pH VBG pCO2 VBG pO2 VBG HCO3 VBG O2 Saturation VBG Base Excess Sodium Potassium Chloride Carbon Dioxide Anion Gap BUN Creatinine Estim Creat Clear Calc Estimated GFR POC Glucose 68 112 Random Glucose Calcium Phosphorus Magnesium Albumin Triglycerides 05/31/25 05/31/25 06/01/25 21:46 23:36 04:50 WBC 23.5 H RBC 3.13 L Hgb 9.8 L Hct 29.4 L MCV 93.9 MCH 31.3 MCHC 33.3 RDW 21.6 H Plt Count 95 L MPV 9.4 Immature Gran % (Auto) 2.2 H Neut % (Auto) 89.6 H Lymph % (Auto) 3.4 L [place] % (Auto) 4.0 Eos % (Auto) 0.1 Baso % (Auto) 0.7 Lymph # (Auto) 0.8 L [place] # (Auto) 0.9 Eos # (Auto) 0.0 Baso # (Auto) 0.2 Abs Immat Gran (auto) 0.51 H Absolute Neuts (auto) 21.1 H Absolute Nucleated RBC 0.130 H Nucleated RBC % (auto) 0.6 H Smear Tech's Comments VERIFIED Smear Path Review VBG pH VBG pCO2 VBG pO2 VBG HCO3 VBG O2 Saturation VBG Base Excess Sodium 134 L Potassium 4.1 Chloride 100 Carbon Dioxide 19 L Anion Gap 19 BUN 21 H Creatinine 3.63 H Estim Creat Clear Calc 41.1 Estimated GFR 20 POC Glucose 139 H 158 H Random Glucose 171 H Calcium 7.0 L Phosphorus 4.5 Magnesium 1.9 Albumin 3.0 L Triglycerides 262 H 06/01/25 05:13 WBC RBC Hgb Hct MCV MCH MCHC RDW Plt Count MPV Immature Gran % (Auto) Neut % (Auto) Lymph % (Auto) [place] % (Auto) Eos % (Auto) Baso % (Auto) Lymph # (Auto) [place] # (Auto) Eos # (Auto) Baso # (Auto) Abs Immat Gran (auto) Absolute Neuts (auto) Absolute Nucleated RBC Nucleated RBC % (auto) Smear Tech's Comments Smear Path Review VBG pH 7.33 VBG pCO2 40 VBG pO2 49 VBG HCO3 21 L VBG O2 Saturation 74.0 VBG Base Excess -3.7 Sodium Potassium Chloride Carbon Dioxide Anion Gap BUN Creatinine Estim Creat Clear Calc Estimated GFR POC Glucose Random Glucose Calcium Phosphorus Magnesium Albumin Triglycerides Microbiology Microbiology Results: Microbiology 05/31/25 10:02 Trachea Gram Stain - Final Progress Note: A&P Assessment and plan (1) Shock: Status: Acute (2) Respiratory failure: Status: Acute (3) Renal failure: Status: Acute (4) Acute upper gastrointestinal hemorrhage: Status: Acute (5) Alcoholic cirrhosis: Status: Acute Plan Patient is a 29 Y M w/ alcohol misuse c/b prior withdrawal seizures, and morbid obesity, s/p gastric sleeve in 2014, presenting to ED on 05/27 w/ hematemesis, found?to be hypotensive, s/p massive transfusion protocol, and subsequently intubated; ICU course c/b persistent shock, c/f septic shock N: intubated, sedated w/ propofol, dexmedetomidine gtts, wean as tolerated CV: shock, likely multifactorial, hemorrhagic and septic, norepinephrine, vasopressin gtts, wean as tolerated, stress-dose steroids, transfuse as needed R: acute hypoxic respiratory failure, c/f aspiration pneumonia, intubated 05/27, wean as tolerated GI: acute renal failure, initiated hemodialysis 05/29, last session 05/31 : alcohol misuse c/b cirrhosis, esophageal?variceal bleed c/b hemorrhagic shock, s/p endoscopy 05/27 and 05/28 w/ banding, last transfusion 05/29 H: hemorrhagic shock, transfuse as needed; avoid chemical DVT prophylaxis, mechanical devices ID: c/f septic shock, empiric vanc/laurie E: to monitor hypo-/hyper-glycemia S: daily updates given to mother Quality Stroke Does the patient have a stroke diagnosis?: No VTE Prior VTE?: No VTE Risk Level:: Medical - moderate - high VTE Device Contraindication: N/A - Device Ordered VTE Drug Contraindication: Treatment Not Tolerated
[2025-06-01 09:22] LABS: INTERNATIONAL NORM RATIO 2.4 (0.9-1.1); Prothrombin Time 27.7 SEC (10.9-12.4)
--- NOTE | 2025-06-01 09:55 | MHC.CLN ---
F/U PT REMAINS INTUBATED AND SEDATED HD CONTINUES; NOTED TRIGS 262 RECOMMEND INCREASING TPN TO 65ML/HR TO PROVIDE 1108KCALS (1745KCALS WITH SEDATION; 23KCALS/KG), 234G DEXTROSE, 78G PROTEIN (1.04G/KG) HOLD TPN DURING HD HOLD LIPIDS AT THIS TIME REPLETE LYTES NEEDED
[2025-06-01 10:55] LABS: Reflex Lactate? Lactic Acid Added
[2025-06-01 11:51] LABS: Glucose, Whole Blood 169 mg/dL (60-115)
[2025-06-01 12:01] LABS: ~Lactic Acid-LAB USE ONLY 2.5 mmol/L (0.5-2.0)
[2025-06-01] MEDS: Norepinephrine Bitartrate/NS 32 MG/250 ML PLAST..BAG IVCONT (12:24)
--- NOTE | 2025-06-01 12:52 | PM.PNNEP ---
Subjective Subjective Date of Service: 06/01/25 Interval history: . Events noted Remains intubated Pressor requirements have decreased Oliguric Physical Exam Vital Signs: Vital Signs: Last Vital Signs Temp 98.2 F 06/01/25 12:00 Pulse 68 06/01/25 12:24 Resp 16 06/01/25 12:00 BP 108/64 06/01/25 12:24 Pulse Ox 95 06/01/25 12:00 O2 Del Method Mechanical Ventil ation 06/01/25 12:00 O2 Flow Rate 25 05/27/25 07:00 FiO2 50 06/01/25 12:00 BMI result Body Mass Index 42.9 Const: General: ill appearing Neck: Neck: Yes supple Resp: Auscultation: clear to auscultation bilaterally Cardio: Palpation: no palpable S3 Heart sounds: no rubs GI: Palpation (GI): Soft to palpation Auscultation: normal bowel sounds Neuro: Motor exam (neuro): no asterixis Objective Data Labs 06/01/25 04:50 06/01/25 04:50 Labs: Laboratory Results - last 24 hr 05/31/25 05/31/25 05/31/25 17:25 21:46 23:36 WBC RBC Hgb Hct MCV MCH MCHC RDW Plt Count MPV Immature Gran % (Auto) Neut % (Auto) Lymph % (Auto) [place] % (Auto) Eos % (Auto) Baso % (Auto) Lymph # (Auto) [place] # (Auto) Eos # (Auto) Baso # (Auto) Abs Immat Gran (auto) Absolute Neuts (auto) Absolute Nucleated RBC Nucleated RBC % (auto) Smear Tech's Comments PT INR VBG pH VBG pCO2 VBG pO2 VBG HCO3 VBG O2 Saturation VBG Base Excess Sodium Potassium Chloride Carbon Dioxide Anion Gap BUN Creatinine Estim Creat Clear Calc Estimated GFR POC Glucose 112 139 H 158 H Random Glucose Lactic Acid Lactic Acid F/U @ 2Hr Calcium Phosphorus Magnesium Albumin Triglycerides 06/01/25 06/01/25 06/01/25 04:50 05:13 08:47 WBC 23.5 H RBC 3.13 L Hgb 9.8 L Hct 29.4 L MCV 93.9 MCH 31.3 MCHC 33.3 RDW 21.6 H Plt Count 95 L MPV 9.4 Immature Gran % (Auto) 2.2 H Neut % (Auto) 89.6 H Lymph % (Auto) 3.4 L [place] % (Auto) 4.0 Eos % (Auto) 0.1 Baso % (Auto) 0.7 Lymph # (Auto) 0.8 L [place] # (Auto) 0.9 Eos # (Auto) 0.0 Baso # (Auto) 0.2 Abs Immat Gran (auto) 0.51 H Absolute Neuts (auto) 21.1 H Absolute Nucleated RBC 0.130 H Nucleated RBC % (auto) 0.6 H Smear Tech's Comments VERIFIED PT 27.7 H INR 2.4 H VBG pH 7.33 VBG pCO2 40 VBG pO2 49 VBG HCO3 21 L VBG O2 Saturation 74.0 VBG Base Excess -3.7 Sodium 134 L Potassium 4.1 Chloride 100 Carbon Dioxide 19 L Anion Gap 19 BUN 21 H Creatinine 3.63 H Estim Creat Clear Calc 41.1 Estimated GFR 20 POC Glucose Random Glucose 171 H Lactic Acid 2.8 H* Lactic Acid F/U @ 2Hr Calcium 7.0 L Phosphorus 4.5 Magnesium 1.9 Albumin 3.0 L Triglycerides 262 H 06/01/25 06/01/25 11:28 11:35 WBC RBC Hgb Hct MCV MCH MCHC RDW Plt Count MPV Immature Gran % (Auto) Neut % (Auto) Lymph % (Auto) [place] % (Auto) Eos % (Auto) Baso % (Auto) Lymph # (Auto) [place] # (Auto) Eos # (Auto) Baso # (Auto) Abs Immat Gran (auto) Absolute Neuts (auto) Absolute Nucleated RBC Nucleated RBC % (auto) Smear Tech's Comments PT INR VBG pH VBG pCO2 VBG pO2 VBG HCO3 VBG O2 Saturation VBG Base Excess Sodium Potassium Chloride Carbon Dioxide Anion Gap BUN Creatinine Estim Creat Clear Calc Estimated GFR POC Glucose 169 H Random Glucose Lactic Acid Lactic Acid F/U @ 2Hr 2.5 H* Calcium Phosphorus Magnesium Albumin Triglycerides Microbiology Microbiology Results: Microbiology 05/31/25 10:02 Trachea Gram Stain - Final 05/31/25 10:02 Trachea Sputum Culture - Preliminary Culture in progress. Procedures Date of Service Date of Service: 06/01/25 Assessment & Plan Assessment and plan (1) CAIN (acute kidney injury): Status: Acute Plan CAIN most likely due to acute tubular necrosis in the setting of shock due to hypovolemia and hemorrhage, sepsis. Currently oliguric. No renal recovery yet. Plan Continue to maintain hemodynamic stability. We will arrange for dialysis tomorrow and remove fluid cautiously as tolerated. Continue to avoid nephrotoxic agents. Concur with other medical management and we will follow along with the team. Discussed with family Time Spent With Patient Time: Total time managing care of this patient today ____ minutes. Progress Note: Quality Stroke Does the patient have a stroke diagnosis?: No
[2025-06-01 13:28] LABS: Appearance Urine Cloudy; Glucose Urine UA Negative (Negative); PH 6.5 (5.0-9.0); Specific Gravity - Urine 1.025 (1.005-1.025); UMIC TRIGGER UA YES
[2025-06-01 13:33] LABS: Reflex Lactate? 2 Y
[2025-06-01 14:52] LABS: Ammonia 154 umol/L (13-55)
[2025-06-01 15:07] LABS: ~Lactic Acid-LAB USE ONLY 2.4 mmol/L (0.5-2.0)
[2025-06-01 17:33] LABS: Glucose, Whole Blood 157 mg/dL (60-115)
[2025-06-01] MEDS: Parenteral Nutrition 1,560 ML 65 ML IV (20:13)
[2025-06-01] MEDS: Lactulose 320 GM/480 ML SOLUTION 200 GM PR (21:41)
--- NOTE | 2025-06-01 22:15 | HO.SKINPHOTO ---
Location: Gluteal fold Category: MASD
[2025-06-02] VITALS (48 sets, daily range): BP systolic 99–156; BP diastolic 40–83; PULSE 51–74; RESP 12–21; TEMP 34.8–36.9; O2SAT 88–97; BMI 44.1
[2025-06-02 00:07] LABS: Glucose, Whole Blood 154 mg/dL (60-115)
[2025-06-02] MEDS: Hydrocortisone Sod Succ/PF 100 MG VIAL 50 MG IVPUSH ×4 (01:53→21:16)
[2025-06-02] MEDS: Lactulose 320 GM/480 ML SOLUTION 200 GM PR ×4 (01:53→21:44)
[2025-06-02 04:44] LABS: VBG HCO3 22 mmol/L (22-26); VBG O2 % Saturation 81.0 %
[2025-06-02 04:54] LABS: Ammonia 190 umol/L (13-55)
[2025-06-02 05:31] LABS: MANUAL DIFF FLAG NO
[2025-06-02 05:36] LABS: Hematocrit 25.5 % (42.0-52.0); Hemoglobin 8.6 g/dl (14.0-18.0); Imm Gran Abs Auto 0.40 X10*3/uL (0.00-0.03); Imm Gran Pct Auto 1.9 % (0.0-0.4); Lymphocytes Absolute Auto 0.8 X10*3/uL (1.2-4.9); Mean Corpuscular HGB Conc 33.7 g/dl (31.0-36.0); Mean Corpuscular Hemoglobin 31.2 pg (27.0-33.0); Mean Corpuscular Volume 92.4 fL (80.0-98.0); NRBC Abs Auto 0.070 X10*3/uL (0.0-0.012); NRBC Pct Auto 0.3 /100WBC (0.0-0.2); Red Blood Count 2.76 X10*6/uL (4.60-5.80); White Blood Count 21.5 X10*3/uL (4.8-10.8)
[2025-06-02 05:37] LABS: Platelet Count 69 X10*3/uL (160-400)
[2025-06-02 05:41] LABS: Venous Blood Gas Refer to POC result
--- NOTE | 2025-06-02 05:43 | PC.NURSE ---
Assumed care at 1900. Patient remains intubated, sedation off at approx noon 10/. Patient does not open eyes, track, or follow commands, though stronger cough?and gag noted. SR on tele, HR 60s-70s. 4x concentrated levophed and vasopressin gtts running per OCT. Patient edematous, weeping in areas. Remains mechanically ventilated, see vent assessment for settings. Abdomen large and soft, hypoactive bowel sounds?x4, TPN running per OCT. Lactulose ordered r/t rising ammonia levels, FMS inserted and lactulose administered?per OCT with some effect. Patient's stool liquid and melena in color. Patient anuric, male incontinence?wrap applied. Skin notably jaundiced and edematous, with newly open area to gluteal fold ?r/t maceration-- new wound consult placed for evaluation. Area cleansed thoroughly and triad applied. Patient repositioned Q2HR, family remains at bedside. Education and updates provided to family on patient status and plan of care. AFSANEH Ayala also updated family at bedside. Bed locked in lowest position, bed alarm on, see EMR for further details.?
[2025-06-02 05:44] LABS: Albumin Level 3.0 g/dL (3.5-5.0)
[2025-06-02] MEDS: Artificial Tears 15 ML DROPS 1 DROP EYE-BOTH ×4 (05:47→21:25)
[2025-06-02] MEDS: Vasopressin 20 UNIT/100 ML INFUS..BTL 12 UNIT IVCONT ×3 (05:48→21:18)
[2025-06-02 05:51] LABS: Anion Gap 19 (12-20); Blood Urea Nitrogen 38 mg/dL (9-16); Calcium 7.0 mg/dL (8.4-10.2); Carbon Dioxide 20 mmol/L (22-29); Chloride 100 mmol/L (96-108); Creatinine Clr Calc Pharmacy 34.1; Estimated Glomerular Filt Rate 16; Magnesium 1.9 mg/dL (1.6-2.6); Potassium 3.8 mmol/L (3.3-5.1); Sodium 135 mmol/L (135-145)
--- NOTE | 2025-06-02 08:29 | P.PNCC_ITS ---
Subjective Subjective Date of Service: 06/02/25 Interval History: no significant overnight events; persistent critical and guarded clinical status Critical Care Time (minutes): 60 Physical Exam 2 Vital Signs: Vital Signs: Last Vital Signs Temp 96.9 F 06/02/25 08:00 Pulse 74 06/02/25 08:00 Resp 18 06/02/25 08:00 BP 125/66 06/02/25 08:00 Pulse Ox 91 L 06/02/25 08:00 O2 Del Method Mechanical Ventil ation 06/02/25 08:00 O2 Flow Rate 25 05/27/25 07:00 FiO2 55 06/02/25 08:00 BMI result Body Mass Index 44.1 Const: Other: intubated, not sedated; no appreciable spontaneous movements; appreciable jaundice throughout HEENT: Head: Yes normal to inspection, Yes normocephalic and Yes atraumatic Eyes: General: appearance normal, both eyes and all related structures Neck: Neck: Yes normal visual inspection, Yes full ROM, Yes no meningeal signs, Yes trachea midline and Yes supple Chest: Chest palpation & inspection: normal inspection of the chest Resp: Other: diminished breath sounds throughout; no appreciable overt rales, rhonchi, wheezing Effort & Inspection: normal respiratory effort Cardio: Rate: regular rate Rhythm: regular rhythm GI: Inspection: No Abdominal wall edema and No distended Palpation (GI): S oft to palpation, not firm, nontender, no guarding and not rigid Skin: Other: appreciable jaundice throughout Neuro: General: tone normal and no meningeal signs Extrem: Other: appreciable anasarca General: Yes full ROM and Yes capillary refill normal Psych: Other: unable to assess Objective Data Labs 06/02/25 04:31 06/02/25 04:31 Labs: Laboratory Results - last 24 hr 06/01/25 06/01/25 06/01/25 08:47 11:28 11:35 WBC RBC Hgb Hct MCV MCH MCHC RDW Plt Count MPV Immature Gran % (Auto) Neut % (Auto) Lymph % (Auto) [place] % (Auto) Eos % (Auto) Baso % (Auto) Lymph # (Auto) [place] # (Auto) Eos # (Auto) Baso # (Auto) Abs Immat Gran (auto) Absolute Neuts (auto) Absolute Nucleated RBC Nucleated RBC % (auto) PT 27.7 H INR 2.4 H VBG pH VBG pCO2 VBG pO2 VBG HCO3 VBG O2 Saturation VBG Base Excess Sodium Potassium Chloride Carbon Dioxide Anion Gap BUN Creatinine Estim Creat Clear Calc Estimated GFR POC Glucose 169 H Random Glucose Lactic Acid 2.8 H* Lactic Acid F/U @ 2Hr 2.5 H* Lactic Acid F/U @ 4Hr Calcium Phosphorus Magnesium Total Bilirubin Direct Bilirubin Ammonia Albumin Urine Color Urine Appearance Urine pH Ur Specific [place] Urine Protein Urine Glucose (UA) Urine Ketones Urine Blood Urine Nitrite Ur Leukocyte Esterase Urine RBC Urine WBC Ur Squamous Epith Cells Urine Bacteria Hyaline Casts 06/01/25 06/01/25 06/01/25 11:42 14:37 14:38 WBC RBC Hgb Hct MCV MCH MCHC RDW Plt Count MPV Immature Gran % (Auto) Neut % (Auto) Lymph % (Auto) [place] % (Auto) Eos % (Auto) Baso % (Auto) Lymph # (Auto) [place] # (Auto) Eos # (Auto) Baso # (Auto) Abs Immat Gran (auto) Absolute Neuts (auto) Absolute Nucleated RBC Nucleated RBC % (auto) PT INR VBG pH VBG pCO2 VBG pO2 VBG HCO3 VBG O2 Saturation VBG Base Excess Sodium Potassium Chloride Carbon Dioxide Anion Gap BUN Creatinine Estim Creat Clear Calc Estimated GFR POC Glucose Random Glucose Lactic Acid Lactic Acid F/U @ 2Hr Lactic Acid F/U @ 4Hr 2.4 H* Calcium Phosphorus Magnesium Total Bilirubin 18.3 H Direct Bilirubin 12.2 H Ammonia 154 H Albumin Urine Color BROWN Urine Appearance Cloudy Urine pH 6.5 Ur Specific [place] 1.025 Urine Protein 300 (3+) H Urine Glucose (UA) Negative Urine Ketones Trace Urine Blood Large (3+) H Urine Nitrite Positive H Ur Leukocyte Esterase Trace H Urine RBC 3-5 H Urine WBC 0-5 Ur Squamous Epith Cells 6-10 Urine Bacteria 3+ Hyaline Casts 0-2 06/01/25 06/01/25 06/02/25 17:27 23:55 04:31 WBC 21.5 H RBC 2.76 L Hgb 8.6 L Hct 25.5 L MCV 92.4 MCH 31.2 MCHC 33.7 RDW 20.7 H Plt Count 69 L D MPV 10.0 Immature Gran % (Auto) 1.9 H Neut % (Auto) 87.9 H Lymph % (Auto) 3.5 L [place] % (Auto) 6.2 Eos % (Auto) 0.1 Baso % (Auto) 0.4 Lymph # (Auto) 0.8 L [place] # (Auto) 1.3 H Eos # (Auto) 0.0 Baso # (Auto) 0.1 Abs Immat Gran (auto) 0.40 H Absolute Neuts (auto) 18.9 H Absolute Nucleated RBC 0.070 H Nucleated RBC % (auto) 0.3 H PT INR VBG pH VBG pCO2 VBG pO2 VBG HCO3 VBG O2 Saturation VBG Base Excess Sodium 135 Potassium 3.8 Chloride 100 Carbon Dioxide 20 L Anion Gap 19 BUN 38 H Creatinine 4.38 H* Estim Creat Clear Calc 34.1 Estimated GFR 16 POC Glucose 157 H 154 H Random Glucose 147 H Lactic Acid Lactic Acid F/U @ 2Hr Lactic Acid F/U @ 4Hr Calcium 7.0 L Phosphorus 3.8 Magnesium 1.9 Total Bilirubin Direct Bilirubin Ammonia 190 H Albumin 3.0 L Urine Color Urine Appearance Urine pH Ur Specific [place] Urine Protein Urine Glucose (UA) Urine Ketones Urine Blood Urine Nitrite Ur Leukocyte Esterase Urine RBC Urine WBC Ur Squamous Epith Cells Urine Bacteria Hyaline Casts 06/02/25 04:40 WBC RBC Hgb Hct MCV MCH MCHC RDW Plt Count MPV Immature Gran % (Auto) Neut % (Auto) Lymph % (Auto) [place] % (Auto) Eos % (Auto) Baso % (Auto) Lymph # (Auto) [place] # (Auto) Eos # (Auto) Baso # (Auto) Abs Immat Gran (auto) Absolute Neuts (auto) Absolute Nucleated RBC Nucleated RBC % (auto) PT INR VBG pH 7.37 VBG pCO2 38 VBG pO2 53 VBG HCO3 22 VBG O2 Saturation 81.0 VBG Base Excess -1.9 Sodium Potassium Chloride Carbon Dioxide Anion Gap BUN Creatinine Estim Creat Clear Calc Estimated GFR POC Glucose Random Glucose Lactic Acid Lactic Acid F/U @ 2Hr Lactic Acid F/U @ 4Hr Calcium Phosphorus Magnesium Total Bilirubin Direct Bilirubin Ammonia Albumin Urine Color Urine Appearance Urine pH Ur Specific [place] Urine Protein Urine Glucose (UA) Urine Ketones Urine Blood Urine Nitrite Ur Leukocyte Esterase Urine RBC Urine WBC Ur Squamous Epith Cells Urine Bacteria Hyaline Casts Microbiology Microbiology Results: Microbiology 05/31/25 10:02 Trachea Gram Stain - Final 05/31/25 10:02 Trachea Sputum Culture - Preliminary Culture in progress. Progress Note: A&P Assessment and plan (1) Shock: Status: Acute (2) Respiratory failure: Status: Acute (3) Renal failure: Status: Acute (4) Liver failure: Status: Acute (5) Acute upper gastrointestinal hemorrhage: Status: Acute Plan Patient is a 29 Y M w/ alcohol misuse c/b prior withdrawal seizures, and morbid obesity, s/p gastric sleeve in 2014, presenting to ED on 05/27 w/ hematemesis, found?to be hypotensive, s/p massive transfusion protocol, and subsequently intubated; ICU course c/b persistent shock, c/f septic shock N: intubated, off sedation w/ persistent obtundation, likely d/t hyperammonia CV: shock, likely multifactorial, hemorrhagic and septic, norepinephrine, vasopressin gtts, wean as tolerated, stress-dose steroids, transfuse as needed R: acute hypoxic respiratory failure, c/f aspiration pneumonia, intubated 05/27, wean as tolerated GI: acute renal failure, initiated hemodialysis 05/29, last session 05/31 : alcohol misuse c/b cirrhosis, esophageal?variceal bleed c/b hemorrhagic shock, s/p endoscopy 05/27 and 05/28 w/ banding, last transfusion 05/29 H: hemorrhagic shock, transfuse as needed; avoid chemical DVT prophylaxis, mechanical devices ID: c/f septic shock, empiric vanc/laurie E: to monitor hypo-/hyper-glycemia S: daily updates given to mother Quality Stroke Does the patient have a stroke diagnosis?: No VTE Prior VTE?: No VTE Risk Level:: Medical - moderate - high VTE Device Contraindication: N/A - Device Ordered VTE Drug Contraindication: Treatment Not Tolerated
[2025-06-02] MEDS: 0.9 % Sodium Chloride Flush 3 ML SYRINGE IVFLUSH ×3 (08:35→21:19)
[2025-06-02] MEDS: Albumin Human 25 % 50 ML 100 ML IV (08:38)
[2025-06-02] MEDS: Chlorhexidine Gluc Oral Rinse 15 ML MOUTHWASH BUCCAL ×3 (08:38→21:17)
[2025-06-02] MEDS: Calcium Gluconate/NaCl,Iso-Osm 2 GM/100 ML PLAST..BAG IV (08:41)
--- NOTE | 2025-06-02 09:10 | MHC.CLN ---
F/U PT REMAINS INTUBATED; SEDATION OFF SINCE 06/01 RECOMMEND TPN AT 65ML/HR WITH 63G LIPIDS TO PROVIDE 1738 TOTAL KCALS (23KCALS/KG), 234G DEXTROSE, 78G PROTEIN (1.04G/KG) HOLD TPN DURING HD REPLETE LYTES NEEDED
[2025-06-02 11:43] LABS: Glucose, Whole Blood 118 mg/dL (60-115)
[2025-06-02] MEDS: Norepinephrine Bitartrate/NS 32 MG/250 ML PLAST..BAG 8.17 MG IVCONT (12:50)
--- NOTE | 2025-06-02 13:28 | MHC.CM.PN ---
PT REMAINS IN ICU ON VENTILATORY/PRESSOR SUPPORT. CM WILL CONTINUE TO FOLLOW HOSPITAL COURSE.
--- NOTE | 2025-06-02 14:42 | PM.PNNEP ---
Subjective Subjective Date of Service: 06/02/25 Interval history: Events noted. Remains intubated Physical Exam Vital Signs: Vital Signs: Last Vital Signs Temp 96.7 F L 06/02/25 11:48 Pulse 64 06/02/25 14:00 Resp 16 06/02/25 14:00 BP 129/67 06/02/25 14:00 Pulse Ox 97 06/02/25 14:00 O2 Del Method Mechanical Ventil ation 06/02/25 14:00 O2 Flow Rate 25 05/27/25 07:00 FiO2 55 06/02/25 14:00 BMI result Body Mass Index 44.1 Const: General: ill appearing Neck: Neck: Yes supple Resp: Auscultation: clear to auscultation bilaterally Cardio: Palpation: no palpable S3 Heart sounds: no rubs GI: Palpation (GI): Soft to palpation Auscultation: normal bowel sounds Neuro: Motor exam (neuro): no asterixis Objective Data Labs 06/02/25 04:31 06/02/25 04:31 Labs: Laboratory Results - last 24 hr 06/01/25 06/01/25 06/01/25 14:37 14:38 17:27 WBC RBC Hgb Hct MCV MCH MCHC RDW Plt Count MPV Immature Gran % (Auto) Neut % (Auto) Lymph % (Auto) [place] % (Auto) Eos % (Auto) Baso % (Auto) Lymph # (Auto) [place] # (Auto) Eos # (Auto) Baso # (Auto) Abs Immat Gran (auto) Absolute Neuts (auto) Absolute Nucleated RBC Nucleated RBC % (auto) VBG pH VBG pCO2 VBG pO2 VBG HCO3 VBG O2 Saturation VBG Base Excess Sodium Potassium Chloride Carbon Dioxide Anion Gap BUN Creatinine Estim Creat Clear Calc Estimated GFR POC Glucose 157 H Random Glucose Lactic Acid F/U @ 4Hr 2.4 H* Calcium Phosphorus Magnesium Total Bilirubin 18.3 H Direct Bilirubin 12.2 H Ammonia 154 H Albumin Blood Type Antibody Screen 06/01/25 06/02/25 06/02/25 23:55 04:31 04:40 WBC 21.5 H RBC 2.76 L Hgb 8.6 L Hct 25.5 L MCV 92.4 MCH 31.2 MCHC 33.7 RDW 20.7 H Plt Count 69 L D MPV 10.0 Immature Gran % (Auto) 1.9 H Neut % (Auto) 87.9 H Lymph % (Auto) 3.5 L [place] % (Auto) 6.2 Eos % (Auto) 0.1 Baso % (Auto) 0.4 Lymph # (Auto) 0.8 L [place] # (Auto) 1.3 H Eos # (Auto) 0.0 Baso # (Auto) 0.1 Abs Immat Gran (auto) 0.40 H Absolute Neuts (auto) 18.9 H Absolute Nucleated RBC 0.070 H Nucleated RBC % (auto) 0.3 H VBG pH 7.37 VBG pCO2 38 VBG pO2 53 VBG HCO3 22 VBG O2 Saturation 81.0 VBG Base Excess -1.9 Sodium 135 Potassium 3.8 Chloride 100 Carbon Dioxide 20 L Anion Gap 19 BUN 38 H Creatinine 4.38 H* Estim Creat Clear Calc 34.1 Estimated GFR 16 POC Glucose 154 H Random Glucose 147 H Lactic Acid F/U @ 4Hr Calcium 7.0 L Phosphorus 3.8 Magnesium 1.9 Total Bilirubin Direct Bilirubin Ammonia 190 H Albumin 3.0 L Blood Type Antibody Screen 06/02/25 06/02/25 09:16 11:31 WBC RBC Hgb Hct MCV MCH MCHC RDW Plt Count MPV Immature Gran % (Auto) Neut % (Auto) Lymph % (Auto) [place] % (Auto) Eos % (Auto) Baso % (Auto) Lymph # (Auto) [place] # (Auto) Eos # (Auto) Baso # (Auto) Abs Immat Gran (auto) Absolute Neuts (auto) Absolute Nucleated RBC Nucleated RBC % (auto) VBG pH VBG pCO2 VBG pO2 VBG HCO3 VBG O2 Saturation VBG Base Excess Sodium Potassium Chloride Carbon Dioxide Anion Gap BUN Creatinine Estim Creat Clear Calc Estimated GFR POC Glucose 118 H Random Glucose Lactic Acid F/U @ 4Hr Calcium Phosphorus Magnesium Total Bilirubin Direct Bilirubin Ammonia Albumin Blood Type O Positive Antibody Screen NEGATIVE Microbiology Microbiology Results: Microbiology 06/01/25 10:53 Blood - Venous Blood Culture - Preliminary No growth after 24 hours. 06/01/25 10:52 Blood - Venous Blood Culture - Preliminary No growth after 24 hours. 05/31/25 10:02 Trachea Gram Stain - Final 05/31/25 10:02 Trachea Sputum Culture - Preliminary Culture in progress. Procedures Date of Service Date of Service: 06/02/25 Assessment & Plan Assessment and plan (1) CAIN (acute kidney injury): Status: Acute Plan CAIN most likely due to acute tubular necrosis in the setting of shock due to hypovolemia and hemorrhage, sepsis. Currently oliguric. No renal recovery yet. Plan Continue to maintain hemodynamic stability. Hemodialysis today Continue to avoid nephrotoxic agents. Concur with other medical management and we will follow along with the team. Time Spent With Patient Time: Total time managing care of this patient today ____ minutes. Progress Note: Quality Stroke Does the patient have a stroke diagnosis?: No
--- NOTE | 2025-06-02 14:53 | HO.WOUND ---
Addendum entered by Sugey Trimble RN 06/02/25 15:04: Wedges and pillows in use along with Isotour mattres and Heel boot protectors, noted during my assessment. Original Note: Wound Consult: Initial 29yr old? male admitted to [facility] on 05/27/25 - See progress notes and H&P for detailed history.? Wound consult placed for Gluteal Fold.? Patient intubated in ICU remains critically ill with complex medical historey and recent admissions. The patient was recently repositioned and direct care team reports Triad applied and no changes noted from last uploaded photo. Will defer visual assessment to more appropriate time. Based on direct care nurse discussion and photo review topical recommendation and details made below. Patient has Flexiseal in place with frequent / regular high volume Lactulose enemas with leaking noted. Barrier cream in use. Gluteal Fold Etiology: ?MASD - IAD ?Present on Admission Wound Bed: linear and within mirrored fold - pink and red wound bed Drainage / Odor: unknown Edges: ? attached linear and mirrored Radha wound: ? hyperpigmentation noted Goals of Treatment: ? Triad and off load pressure Recommendations: 1. Turn and Reposition every 2 hours and as needed for patient comfort.? Use pillows or wedges to support off loading positions. 2. Off Load all bony prominences with use of pillows and heel boots if needed.? Apply Preventative foams where needed. ? 3. Monitor for incontinence and moisture control, use barrier creams when needed for prevention and treatment. 4. Provide adequate and supplemental nutrition.? 5. Continue low air loss mattress. Isotour Mattress in use. 6. When applicable maintain blood glucose levels per Providers order. Chest Sites - Do not apply adhesive directly to patient?s skin.? Apply skin prep prior to tele pad and rotate site Q shift. Gluteal Fold - Off Load Pressure with Q2 hr turns and use of pillows - Cleanse with PH balance spray or wipes, pat dry. ?Apply thin layer of Triad to wound bed - only pat and dab no scrub and rub when soiling occurs. Reapply thin layer PRN after each episode of incontinence. Re-consult wound care Nurse for wound deterioration or wound changes.
--- NOTE | 2025-06-02 16:48 | HE.PHANOTE ---
RE VANCO DOSE RANDOM LEVEL CAME IN AT 10.3. STILL WAITING TO DETERMINE DIALYSIS SCHEDULE. PT IS BEING TREATED FOR SEPSIS, DECIDED TO GIVE ADDITIONAL GRAM OF VANCOMYCIN TODAY AND RECHECK LEVEL AGAIN TOMORROW AT 1600. WILL HOPEFULLY HAVE DIALYSIS SCHEDULE BY TOMORROW.
[2025-06-02 18:39] LABS: Glucose, Whole Blood 137 mg/dL (60-115)
--- NOTE | 2025-06-02 18:43 | PC.NURSE ---
Patient family updated by MD today about patient outcomes and potential plan of care. Per MD note patient not a candidate for liver transplant. Escalating O2 and Peep requirements today. large amount of inline and oral secretions. During dialysis patient became hypoxic, hypotensive, and bradycardic. titrated levo and O2 as required. -3L today from dialysis. DC'd restraints due to patient flaccid extremities with no intentional/purposeful movement seen.
[2025-06-02] MEDS: Parenteral Nutrition 1,560 ML 65 ML IV (21:17)
[2025-06-03] VITALS (40 sets, daily range): BP systolic 95–152; BP diastolic 35–71; PULSE 69–98; RESP 13–20; TEMP 34.8–36.8; O2SAT 91–100; BMI 44.1
[2025-06-03 00:15] LABS: Glucose, Whole Blood 129 mg/dL (60-115)
[2025-06-03] MEDS: Hydrocortisone Sod Succ/PF 100 MG VIAL 50 MG IVPUSH ×4 (02:00→20:03)
[2025-06-03] MEDS: Lactulose 320 GM/480 ML SOLUTION 200 GM PR ×3 (02:00→17:13)
[2025-06-03] MEDS: Vasopressin 20 UNIT/100 ML INFUS..BTL 12 UNIT IVCONT ×3 (05:00→20:01)
[2025-06-03] MEDS: Artificial Tears 15 ML DROPS 1 DROP EYE-BOTH ×4 (05:15→23:22)
[2025-06-03 05:39] LABS: VBG HCO3 27 mmol/L (22-26)
[2025-06-03 06:00] LABS: MANUAL DIFF FLAG NO
[2025-06-03 06:07] LABS: Hematocrit 22.6 % (42.0-52.0); Hemoglobin 7.7 g/dl (14.0-18.0); Imm Gran Abs Auto 0.20 X10*3/uL (0.00-0.03); Imm Gran Pct Auto 1.2 % (0.0-0.4); Lymphocytes Absolute Auto 0.7 X10*3/uL (1.2-4.9); Mean Corpuscular HGB Conc 34.1 g/dl (31.0-36.0); Mean Corpuscular Hemoglobin 31.2 pg (27.0-33.0); Mean Corpuscular Volume 91.5 fL (80.0-98.0); NRBC Abs Auto 0.040 X10*3/uL (0.0-0.012); NRBC Pct Auto 0.2 /100WBC (0.0-0.2); Red Blood Count 2.47 X10*6/uL (4.60-5.80); White Blood Count 16.7 X10*3/uL (4.8-10.8)
[2025-06-03 06:09] LABS: Platelet Count 51 X10*3/uL (160-400)
[2025-06-03 06:38] LABS: Venous Blood Gas Refer to POC result
[2025-06-03 06:39] LABS: Albumin Level 2.8 g/dL (3.5-5.0); Anion Gap 14 (12-20); Blood Urea Nitrogen 47 mg/dL (9-16); Calcium 7.4 mg/dL (8.4-10.2); Carbon Dioxide 23 mmol/L (22-29); Chloride 100 mmol/L (96-108); Creatinine Clr Calc Pharmacy 38.2; Estimated Glomerular Filt Rate 18; Magnesium 1.9 mg/dL (1.6-2.6); Potassium 3.3 mmol/L (3.3-5.1); Sodium 134 mmol/L (135-145)
[2025-06-03 06:50] LABS: Ammonia 145 umol/L (13-55)
--- NOTE | 2025-06-03 06:59 | PC.NURSE ---
Upon initial assessment at 1900- patient remains off sedation. Unresponsive except for a weak cough and overbreathing ventilator. Afebrile. NSR on tele, HR 60-70s. Vasopressin infusion running per OCT. SBP >90, MAP >65. ETT #7.5, 25 cm at lip. On VCV with frequent mucous plugging and copious oral secretions. NPO; TPN infusing per OCT. POC glucose checked q6hr. FMS draining melanic liquid stool; lactulose enemas administered per OCT. Anuric. Skin overall intact; see skin integrity assessment. Repositioned q2hr with pillows/wedges; on Isotour mattress. Family at bedside throughout shift; updated and aware of patient status and plan of care. Bed locked in lowest position, alarm on. See EMR/flowsheet for additional details.
[2025-06-03] MEDS: Chlorhexidine Gluc Oral Rinse 15 ML MOUTHWASH BUCCAL ×3 (08:03→20:03)
[2025-06-03] MEDS: 0.9 % Sodium Chloride Flush 3 ML SYRINGE IVFLUSH ×3 (08:05→23:20)
[2025-06-03] MEDS: Albumin Human 25 % 50 ML 100 ML IV ×2 (08:05→09:01)
[2025-06-03] MEDS: Potassium Chloride/H20 40 MEQ/100 ML PIGGYBACK 100 MEQ IV (08:05)
--- NOTE | 2025-06-03 08:18 | P.PNCC_ITS ---
Subjective Subjective Date of Service: 06/03/25 Interval History: no significant overnight events; persistent critical and guarded clinical status Critical Care Time (minutes): 60 Physical Exam 2 Vital Signs: Vital Signs: Last Vital Signs Temp 97.7 F 06/03/25 06:00 Pulse 84 06/03/25 07:00 Resp 16 06/03/25 07:00 BP 148/71 H 06/03/25 07:00 Pulse Ox 91 L 06/03/25 07:00 O2 Del Method Mechanical Ventil ation 06/03/25 07:00 O2 Flow Rate 25 05/27/25 07:00 FiO2 90 06/03/25 07:48 BMI result Body Mass Index 44.1 Const: Other: intubated, not sedated; no appreciable spontaneous movements; appreciably jaundiced General: comfortable and no acute distress HEENT: Head: Yes normal to inspection, Yes normocephalic and Yes atraumatic Eyes: General: appearance normal, both eyes and all related structures Neck: Neck: Yes normal visual inspection, Yes full ROM, Yes no meningeal signs, Yes trachea midline and Yes supple Chest: Chest palpation & inspection: normal inspection of the chest Resp: Effort & Inspection: normal respiratory effort Cardio: Rate: regular rate Rhythm: regular rhythm GI: Inspection: Yes normal to inspection, No Abdominal wall edema and No distended Palpation (GI): Soft to palpation, not firm, nontender, no guarding and not rigid Skin: Other: appreciable jaundice throughout Neuro: General: no meningeal signs Extrem: Other: appreciable anasarca General: Yes normal to inspection, Yes full ROM and Yes capillary refill normal Psych: Other: unable to assess Objective Data Labs 06/03/25 05:36 06/03/25 05:36 Labs: Laboratory Results - last 24 hr 06/02/25 06/02/25 06/02/25 09:16 11:31 16:11 WBC RBC Hgb Hct MCV MCH MCHC RDW Plt Count MPV Immature Gran % (Auto) Neut % (Auto) Lymph % (Auto) [place] % (Auto) Eos % (Auto) Baso % (Auto) Lymph # (Auto) [place] # (Auto) Eos # (Auto) Baso # (Auto) Abs Immat Gran (auto) Absolute Neuts (auto) Absolute Nucleated RBC Nucleated RBC % (auto) VBG pH VBG pCO2 VBG pO2 VBG HCO3 VBG O2 Saturation VBG Base Excess Sodium Potassium Chloride Carbon Dioxide Anion Gap BUN Creatinine Estim Creat Clear Calc Estimated GFR POC Glucose 118 H Random Glucose Calcium Phosphorus Magnesium Ammonia Albumin Random Vancomycin 10.3 L Blood Type O Positive Antibody Screen NEGATIVE 06/02/25 06/02/25 06/03/25 18:31 23:49 05:28 WBC RBC Hgb Hct MCV MCH MCHC RDW Plt Count MPV Immature Gran % (Auto) Neut % (Auto) Lymph % (Auto) [place] % (Auto) Eos % (Auto) Baso % (Auto) Lymph # (Auto) [place] # (Auto) Eos # (Auto) Baso # (Auto) Abs Immat Gran (auto) Absolute Neuts (auto) Absolute Nucleated RBC Nucleated RBC % (auto) VBG pH 7.38 VBG pCO2 46 VBG pO2 58 VBG HCO3 27 H VBG O2 Saturation Not Reportable VBG Base Excess 2.4 Sodium Potassium Chloride Carbon Dioxide Anion Gap BUN Creatinine Estim Creat Clear Calc Estimated GFR POC Glucose 137 H 129 H Random Glucose Calcium Phosphorus Magnesium Ammonia Albumin Random Vancomycin Blood Type Antibody Screen 06/03/25 06/03/25 05:36 05:46 WBC 16.7 H RBC 2.47 L Hgb 7.7 L Hct 22.6 L MCV 91.5 MCH 31.2 MCHC 34.1 RDW 20.3 H Plt Count 51 L D MPV 9.6 Immature Gran % (Auto) 1.2 H Neut % (Auto) 86.9 H Lymph % (Auto) 4.4 L [place] % (Auto) 7.0 Eos % (Auto) 0.1 Baso % (Auto) 0.4 Lymph # (Auto) 0.7 L [place] # (Auto) 1.2 Eos # (Auto) 0.0 Baso # (Auto) 0.1 Abs Immat Gran (auto) 0.20 H Absolute Neuts (auto) 14.5 H Absolute Nucleated RBC 0.040 H Nucleated RBC % (auto) 0.2 VBG pH VBG pCO2 VBG pO2 VBG HCO3 VBG O2 Saturation VBG Base Excess Sodium 134 L Potassium 3.3 Chloride 100 Carbon Dioxide 23 Anion Gap 14 BUN 47 H Creatinine 3.98 H Estim Creat Clear Calc 38.2 Estimated GFR 18 POC Glucose Random Glucose 125 H Calcium 7.4 L Phosphorus 4.1 Magnesium 1.9 Ammonia 145 H Albumin 2.8 L Random Vancomycin Blood Type Antibody Screen Microbiology Microbiology Results: Microbiology 05/31/25 10:02 Trachea Gram Stain - Final 05/31/25 10:02 Trachea Sputum Culture - Final 06/01/25 10:53 Blood - Venous Blood Culture - Preliminary No growth after 24 hours. 06/01/25 10:52 Blood - Venous Blood Culture - Preliminary No growth after 24 hours. Progress Note: A&P Assessment and plan (1) Shock: Status: Acute (2) Alcoholic liver failure: Status: Acute (3) Acute upper gastrointestinal hemorrhage: Status: Acute (4) Respiratory failure: Status: Acute (5) Renal failure: Status: Acute Plan Patient is a 29 Y M w/ alcohol misuse c/b prior withdrawal seizures, and morbid obesity, s/p gastric sleeve in 2014, presenting to ED on 05/27 w/ hematemesis, found?to be hypotensive, s/p massive transfusion protocol, and subsequently intubated; ICU course c/b persistent shock, c/f septic shock N: intubated, off sedation w/ persistent obtundation, likely d/t hyperammonia CV: shock, likely multifactorial, hemorrhagic and septic, norepinephrine, vasopressin gtts, wean as tolerated, stress-dose steroids, transfuse as needed R: acute hypoxic respiratory failure, c/f aspiration pneumonia, intubated 05/27, wean as tolerated GI: acute renal failure, initiated hemodialysis 05/29, last session 06/02 : alcohol misuse c/b cirrhosis, esophageal?variceal bleed c/b hemorrhagic shock, s/p endoscopy 05/27 and 05/28 w/ banding, last transfusion 05/29 H: hemorrhagic shock, transfuse as needed; avoid chemical DVT prophylaxis, mechanical devices ID: c/f septic shock, empiric vanc/laurie E: to monitor hypo-/hyper-glycemia S: daily updates given to mother/father at bedside Quality Stroke Does the patient have a stroke diagnosis?: No VTE Prior VTE?: No VTE Risk Level:: Medical - moderate - high VTE Device Contraindication: N/A - Device Ordered VTE Drug Contraindication: Treatment Not Tolerated
--- NOTE | 2025-06-03 08:35 | W.MHC.ACPN ---
Advanced Care Planning Note Advanced Care Planning Note Discussed with: family member(s) Time spent (in minutes): 30 Narrative: I met Mr. Morejon's mother and father at the bedside; we discussed Mr. Morejon's critical and guarded clinical status; we also discussed that Mr. Morejon has not been accepted to outside facilities for liver transplantation consideration; given such, Mr. Morejon's mother and father are concerned the pros of additional medical treatment may not outweigh the cons, and that Mr. Morejon may continue to suffer; we discussed comfort-focused care; Mr. Morejon's mother and father expressed it would be appropriate to transition Mr. Morejon's philosophy of care to comfort-focused care tomorrow after Mr. Morejon's sister is able to see him Problems Discussed (1) Shock: (2) Alcoholic liver failure: (3) Acute upper gastrointestinal hemorrhage: (4) Respiratory failure: (5) Renal failure:
[2025-06-03] MEDS: Calcium Gluconate/NaCl,Iso-Osm 1 GM/50 ML PLAST..BAG IV (09:09)
--- NOTE | 2025-06-03 10:18 | MHC.CLN ---
F/U PT REMAINS INTUBATED; SEDATION OFF SINCE 06/01 NPO REVIEWED LABS DISCUSSED WITH PHARMACY CONTINUE TPN AT 65ML/HR WITH 63G LIPIDS PROVIDES 1738 TOTAL KCALS (23KCALS/KG), 234G DEXTROSE, 78G PROTEIN (1.04G/KG) HOLD TPN DURING HD REPLETE LYTES NEEDED NOTED POSSIBLE TRANSITION TO AIRPLANE PILOT HELPER FOLLOWING WITH TEAM
[2025-06-03] MEDS: Norepinephrine Bitartrate/NS 32 MG/250 ML PLAST..BAG IVCONT (11:50)
[2025-06-03 12:02] LABS: Glucose, Whole Blood 123 mg/dL (60-115)
--- NOTE | 2025-06-03 12:34 | PC.NURSE ---
Assumed care @ 0700? Neuro/Resp: Off sedation/intubated, does not open eyes, does not follow commands,? Flaccid extremities (passive ROM performed)? Cardiac: Sinus Rhythm, on Vaso gtt and? Levophed 4x gtt - per OCT, MAP goal >65.? GI/: LBM 06/03, +bowel sounds, FMD in place, POC Q6hr. Anuric Skin: ?Impaired skin integrity - see skin assessment (repositioning maintained)? Temp: Hypothermic 95.7? placed on a warming blanket Infectious: IV antibiotics? Lines: TLC L IJ, HD cath RIJ,? peripheral IV x2.
--- NOTE | 2025-06-03 14:45 | MHC.CM.PN ---
Pt to be made CAT SITTER once other family arrives. held extensive conversations w/pt's parents about poor pt prognosis. CM to follow for further needs
--- NOTE | 2025-06-03 17:56 | HE.PHANOTE ---
RE VANCO DOSE SCR DECLINING BUT STILL VERY HIGH AT 3.98 TODAY. RANDOM 18.9 SO NO DOSE GIVEN.
[2025-06-03 18:19] LABS: Glucose, Whole Blood 121 mg/dL (60-115)
[2025-06-03 21:57] LABS: ABG HCO3 25 mmol/L (22-26); ABG O2 % Saturation 100.0 %
--- NOTE | 2025-06-03 22:00 | PM.EVENT ---
Documented by User: Niurka Ayala NP 06/04/25 03:17 Event Note Date of Service: 06/04/25 Event Note: NEDS process started at 2200 for potential heart and kidney donations. Consents signed by PT's mother. Plan for OR at 1700 tomorrow. Time Spent With Patient Time: Total time managing care of this patient today ____ minutes. Documented by User: Celeste Pascal MD 06/04/25 06:24 Event Note Date of Service: 06/04/25
[2025-06-03 22:24] LABS: Mean Corpuscular Volume 90.5 fL (80.0-98.0); NRBC Abs Auto 0.000 X10*3/uL (0.0-0.012); NRBC Pct Auto 0.0 /100WBC (0.0-0.2); PLT CLUMP 1; SCAN SMEAR FLAG 1
[2025-06-03 22:26] LABS: Hematocrit 22.8 % (42.0-52.0); Hemoglobin 7.8 g/dl (14.0-18.0); Imm Gran Abs Auto 0.38 X10*3/uL (0.00-0.03); Imm Gran Pct Auto 1.5 % (0.0-0.4); Lymphocytes Absolute Auto 1.1 X10*3/uL (1.2-4.9); MANUAL DIFF FLAG SCAN; Mean Corpuscular HGB Conc 34.2 g/dl (31.0-36.0); Mean Corpuscular Hemoglobin 31.0 pg (27.0-33.0); Red Blood Count 2.52 X10*6/uL (4.60-5.80)
[2025-06-03 22:30] LABS: Platelet Count 63 X10*3/uL (160-400); White Blood Count 25.6 X10*3/uL (4.8-10.8)
[2025-06-03 22:38] LABS: COVID-19 Test Negative (Negative); IDNOW Serial# 55D5AD1C
[2025-06-03 22:46] LABS: INTERNATIONAL NORM RATIO 1.6 (0.9-1.1); Partial Thromboplastin Time 41.0 SEC (26.7-34.1); Prothrombin Time 18.0 SEC (10.9-12.4)
[2025-06-03 22:47] LABS: Alanine Aminotransferase 78 U/L (0-40); Albumin Level 3.3 g/dL (3.5-5.0); Alkaline Phosphatase 130 U/L (39-117); Amylase 111 U/L (28-100); Anion Gap 16 (12-20); Aspartate Amino Transferase 276 U/L (5-37); Blood Urea Nitrogen 64 mg/dL (9-16); Calcium 8.2 mg/dL (8.4-10.2); Carbon Dioxide 24 mmol/L (22-29); Chloride 101 mmol/L (96-108); Creatinine Clr Calc Pharmacy 34.8; Estimated Glomerular Filt Rate 16; Fibrinogen 230 MG/DL (259-690); Lipase 52 U/L (8-78); Potassium 3.5 mmol/L (3.3-5.1); Sodium 137 mmol/L (135-145); Total Protein 5.3 g/dL (6.5-8.0); Troponin-I High Sensitivity 68.7 ng/L (<3.5-35.0)
[2025-06-03 22:55] LABS: D Dimer High Sensitivity 8047 NG/ML
--- NOTE | 2025-06-03 22:55 | PC.RT ---
Pt family refusing ABG draw
[2025-06-03] MEDS: methylPREDNISolone Sod Succ 1,000 MG in 0.9 % Sodium Chloride 50 ML 66 MG IV (23:02)
[2025-06-03 23:12] LABS: NT Pro B Type Natriuretic Pept 13840.2 pg/mL (<300)
[2025-06-03 23:22] LABS: Glucose, Whole Blood 100 mg/dL (60-115)
[2025-06-04] VITALS (32 sets, daily range): BP systolic 97–118; BP diastolic 39–67; PULSE 85–113; RESP 14–20; TEMP 34–36.7; O2SAT 72–98; BMI 44.1
[2025-06-04 03:55] LABS: Hematocrit 22.5 % (42.0-52.0); Hemoglobin 8.0 g/dl (14.0-18.0); Imm Gran Abs Auto 0.34 X10*3/uL (0.00-0.03); Imm Gran Pct Auto 1.4 % (0.0-0.4); Lymphocytes Absolute Auto 0.9 X10*3/uL (1.2-4.9); MANUAL DIFF FLAG SCAN; Mean Corpuscular HGB Conc 35.6 g/dl (31.0-36.0); Mean Corpuscular Hemoglobin 31.9 pg (27.0-33.0); Mean Corpuscular Volume 89.6 fL (80.0-98.0); NRBC Abs Auto 0.000 X10*3/uL (0.0-0.012); NRBC Pct Auto 0.0 /100WBC (0.0-0.2); Platelet Count 67 X10*3/uL (160-400); Red Blood Count 2.51 X10*6/uL (4.60-5.80); SCAN SMEAR FLAG 1; White Blood Count 25.1 X10*3/uL (4.8-10.8)
[2025-06-04 03:56] LABS: Glucose, Whole Blood 100 mg/dL (60-115)
[2025-06-04 04:02] LABS: Fibrinogen 219 MG/DL (259-690); INTERNATIONAL NORM RATIO 1.6 (0.9-1.1); Prothrombin Time 18.6 SEC (10.9-12.4)
[2025-06-04 04:03] LABS: Partial Thromboplastin Time 39.2 SEC (26.7-34.1)
[2025-06-04 04:08] LABS: D Dimer High Sensitivity 7745 NG/ML
[2025-06-04 04:13] LABS: Alanine Aminotransferase 81 U/L (0-40); Albumin Level 3.3 g/dL (3.5-5.0); Alkaline Phosphatase 133 U/L (39-117); Anion Gap 17 (12-20); Aspartate Amino Transferase 292 U/L (5-37); Blood Urea Nitrogen 69 mg/dL (9-16); Calcium 8.1 mg/dL (8.4-10.2); Carbon Dioxide 23 mmol/L (22-29); Chloride 101 mmol/L (96-108); Creatinine Clr Calc Pharmacy 33.1; Estimated Glomerular Filt Rate 15; Potassium 3.7 mmol/L (3.3-5.1); Sodium 137 mmol/L (135-145); Total Protein 5.4 g/dL (6.5-8.0)
[2025-06-04] MEDS: Artificial Tears 15 ML DROPS 1 DROP EYE-BOTH ×2 (06:01→11:41)
--- NOTE | 2025-06-04 06:21 | PC.NURSE ---
Assumed care of patient at 1900. NEDS process began at 2199. Family at bedside. Neuro: Patient remains intubated, no sedation. Unresponsive to voice and pain. Pupils reactive, sluggish. Weak cough, no gag.? Cardiac: SR on monitor. Levo and vaso titrated down per OCT, patient started on Phenylephrine per OCT. Noninvasive hemodynamic monitoring Q4H.? Resp: ACPC on ventilator, see vent settings. Moderate amounts of james sputum.? GI/: FMD in place and patent, lactulose enemas placed on hold per provider. Patient not making any urine.? Endocrine: Q6H POC. 2199 POC: 100.? 0400 POC: 100. Integumentary/Musculoskeletal: Flaccid in all extremities. Assist x 2 turn and reposition. Fungal rash in groin, nystatin applied. MASD to coccyx, triad applied. See Skin assessment.? Family updated throughout night. Plan of care ongoing.
--- NOTE | 2025-06-04 07:00 | CA_ITS ---
Transthoracic Echocardiogram Patient (Last, First, Middle): Tab Morejon Andrew Gender: M Date of : 1995 Age: 29 Procedure Date: 06/04/2025 Procedure Type: Transthoracic Echocardiogram Location: ICU Height: 177.8 cm Weight: 139.26 kg BSA: 2.50 m2 Heart Rate: 97 bpm BP: 113 / 57 mmHg Mattress Maker: DARBY Referring MD: Niurka Ayala FARM LABOR CONTRACTOR System Specialist: Anurag Denson MD Symptoms: NEDS, Organ Donor Study Quality: Technically Difficult w/Contrast ECG Rhythm: Sinus Conclusions: - Essentially normal study with trivial effusion near the left ventricle Findings Procedure Information Contrast agent, definity, is being given per protocol without apparent complications. Left Ventricle Normal left ventricular size, thickness, and systolic function. The visually estimated ejection fraction is between 60-65%. Spectral Doppler is indicative of a normal filling pattern. Right Ventricle Normal right ventricular cavity size. There is normal right ventricular systolic function. Atria The left atrium is likely dilated. Interatrial shunt cannot be excluded. The right atrium is normal in size. Aortic Valve Normal aortic valve structure and function. There is no aortic valve stenosis. There is no aortic valve regurgitation. Mitral Valve Normal mitral valve structure and function. There is no mitral valve regurgitation. There is no mitral valve stenosis. Pulmonic Valve The pulmonic valve is likely normal. There is no pulmonic valve regurgitation. Tricuspid Valve Normal tricuspid valve structure. There is no tricuspid valve regurgitation. Tricuspid regurgitation envelope is inadequate for calculation of right ventricular systolic pressure. Normal right atrial pressure. Great Vessels All visible segments of the aorta are normal in size. The pulmonary artery was not well visualized. Venous The inferior vena cava is normal in size. Pericardium/Pleural There is a trivial loculated pericardial effusion overlying the left ventricle. Prior Study Comparison No prior study available for comparison. Measurements 2D Linear Measurements IVSd: 1.08 0.6-0.9/0.6-1.0 cm LVIDd: 4.88 3.9-5.3/4.2-5.9 cm LVIDd Index: 2.25 2.4-3.2/2.2-3.1 cm/m2 LVIDs: 2.66 2.0-3.6 cm LVPWd: 1.04 0.7-1.1 cm LA Diam: 4.70 2.7-3.8/3.0-4.0 cm LAIDs Index: 1.88 1.5-2.3 cm/m2 LV Mass: 371.21 67-162/88-224 g LV Mass Index: 148.48 43-95/49-115 g/m2 LVOT Diam: 2.40 3.0+(-)1.3 cm Mitral Valve MV Pk E: 1.00 MV PK A: 0.76 MV Decel Time: 139.00 E/A: 1.30 E'Lateral: 12.70 E'Medial: 13.70 E/E' Med: 7.30 E/E' Lat: 7.90 PHT: 41.00 MVA PHT: 5.37 Decel [place]: 7.21 Aortic Valve AoV Pk Geo: 1.69 AoV Mn Geo: 1.15 AoV VTI: 0.36 AoV Pk Grad: 11.00 Aov Mn Grad: 7.00 BRIA Cont.VTI: 3.38 LVOT LVOT Pk Geo: 1.27 LVOT Mn Geo: 0.78 LVOT VTI: 0.27 LVOT Pk Grad: 6.00 LVOT Mn Grad: 3.00 LVOT Diam: 2.40 LVOT Area: 4.52 Diastolic Function MV Pk E: 1.00 MV Pk A: 0.76 E/A: 1.30 E'Medial: 13.70 E/E' Med: 7.30 E' Laterial: 12.70 E/E' Lat: 7.90 Right Ventricle TAPSE (mm): 38.70 TVS' Geo: 25.80 Tricuspid Valve TR Pk Geo: 2.16 TR Pk Grad: 19.00 Great Vessels Aorta Sinus of Valsalva: 3.10 2.0-3.5 cm Ao Asc: 3.20 2.1-3.4 cm Pulmonary Valve PV Pk Geo: 1.62 Peak PV Grad: 10.00 Updated in Other Vendor System with Status of Final Anurag Denson MD electronically signed on 06/04/2025 10:47:45 AM with status of Final
[2025-06-04 07:15] LABS: Hemoglobin A1C 63.1241 umol/L; Total Hemoglobin (HGBA1C) 2287.3477 umol/L
[2025-06-04] MEDS: Chlorhexidine Gluc Oral Rinse 15 ML MOUTHWASH BUCCAL ×2 (08:20→15:33)
[2025-06-04] MEDS: 0.9 % Sodium Chloride Flush 3 ML SYRINGE IVFLUSH ×2 (08:21→15:33)
--- NOTE | 2025-06-04 08:55 | PM.CCPN ---
Subjective Subjective Date of Service: 06/04/25 Interval History: organ donation process initiated 06/03 PM Critical Care Time (minutes): 60 Physical Exam Vital Signs: Vital Signs: Last Vital Signs Temp 97.5 F 06/04/25 08:00 Pulse 95 06/04/25 08:00 Resp 16 06/04/25 08:00 BP 118/60 06/04/25 08:00 Pulse Ox 94 06/04/25 08:00 O2 Del Method Mechanical Ventil ation 06/04/25 08:00 O2 Flow Rate 25 05/27/25 07:00 FiO2 90 06/04/25 08:00 BMI result Body Mass Index 44.1 Const: Other: appreciable jaundice General: no acute distress and well developed HEENT: Head: Yes normal to inspection Eyes: General: appearance normal, both eyes and all related structures Neck: Neck: Yes normal visual inspection Chest: Chest palpation & inspection: normal inspection of the chest Resp: Effort & Inspection: normal respiratory effort Cardio: Rate: regular rate Rhythm: regular rhythm GI: Inspection: Yes normal to inspection Skin: Other: appreciable jaundice Neuro: General: tone normal Extrem: Other: appreciable anasarca Psych: Other: unable to assess Objective Data Labs 06/04/25 03:39 06/04/25 03:39 Labs: Laboratory Results - last 24 hr 06/03/25 06/03/25 06/03/25 11:44 16:23 18:05 WBC RBC Hgb Hct MCV MCH MCHC RDW Plt Count MPV Immature Gran % (Auto) Neut % (Auto) Lymph % (Auto) [place] % (Auto) Eos % (Auto) Baso % (Auto) Lymph # (Auto) [place] # (Auto) Eos # (Auto) Baso # (Auto) Abs Immat Gran (auto) Absolute Neuts (auto) Absolute Nucleated RBC Nucleated RBC % (auto) Smear Tech's Comments PT INR APTT Fibrinogen D-Dimer High Sensitivty O2 Saturation ABG pH at Pt Temp ABG pCO2 at Pt Temp ABG pO2 at Pt Temp ABG HCO3 ABG Base Excess (Actual) Sodium Potassium Chloride Carbon Dioxide Anion Gap BUN Creatinine Estim Creat Clear Calc Estimated GFR POC Glucose 123 H 121 H Random Glucose Estimat Average Glucose Hemoglobin A1c % Lactic Acid Calcium Total Bilirubin AST ALT Alkaline Phosphatase Troponin I High Sens NT-Pro-B Natriuret Pep Total Protein Albumin Amylase Lipase Random Vancomycin 18.9 COVID-19 ([facility]) COVID-19 Clin Com 06/03/25 06/03/25 06/03/25 21:53 22:11 22:15 WBC 25.6 H RBC 2.52 L Hgb 7.8 L Hct 22.8 L MCV 90.5 MCH 31.0 MCHC 34.2 RDW 19.9 H Plt Count 63 L MPV 9.6 Immature Gran % (Auto) 1.5 H Neut % (Auto) 85.9 H Lymph % (Auto) 4.2 L [place] % (Auto) 8.2 Eos % (Auto) 0.0 Baso % (Auto) 0.2 Lymph # (Auto) 1.1 L [place] # (Auto) 2.1 H Eos # (Auto) 0.0 Baso # (Auto) 0.1 Abs Immat Gran (auto) 0.38 H Absolute Neuts (auto) 22.0 H Absolute Nucleated RBC 0.000 Nucleated RBC % (auto) 0.0 Smear Tech's Comments VERIFIED PT 18.0 H D INR 1.6 H APTT 41.0 H D Fibrinogen 230 L D-Dimer High Sensitivty 8047 O2 Saturation 100.0 ABG pH at Pt Temp 7.39 ABG pCO2 at Pt Temp 41 ABG pO2 at Pt Temp 107 ABG HCO3 25 ABG Base Excess (Actual) 1.1 Sodium 137 Potassium 3.5 Chloride 101 Carbon Dioxide 24 Anion Gap 16 BUN 64 H Creatinine 4.37 H* Estim Creat Clear Calc 34.8 Estimated GFR 16 POC Glucose Random Glucose 103 Estimat Average Glucose 88 Hemoglobin A1c % 4.7 Lactic Acid 1.3 Calcium 8.2 L D Total Bilirubin 21.8 H AST 276 H ALT 78 H Alkaline Phosphatase 130 H Troponin I High Sens 68.7 H D NT-Pro-B Natriuret Pep 30756.2 H Total Protein 5.3 L Albumin 3.3 L Amylase 111 H Lipase 52 Random Vancomycin COVID-19 ([facility]) Negative COVID-19 Clin Com See Note 06/03/25 06/04/25 06/04/25 23:18 03:39 03:52 WBC 25.1 H RBC 2.51 L Hgb 8.0 L Hct 22.5 L MCV 89.6 MCH 31.9 MCHC 35.6 RDW 19.9 H Plt Count 67 L MPV 10.5 Immature Gran % (Auto) 1.4 H Neut % (Auto) 89.7 H Lymph % (Auto) 3.7 L [place] % (Auto) 5.0 Eos % (Auto) 0.0 Baso % (Auto) 0.2 Lymph # (Auto) 0.9 L [place] # (Auto) 1.3 H Eos # (Auto) 0.0 Baso # (Auto) 0.1 Abs Immat Gran (auto) 0.34 H Absolute Neuts (auto) 22.5 H Absolute Nucleated RBC 0.000 Nucleated RBC % (auto) 0.0 Smear Tech's Comments PT 18.6 H INR 1.6 H APTT 39.2 H Fibrinogen 219 L D-Dimer High Sensitivty 7745 O2 Saturation ABG pH at Pt Temp ABG pCO2 at Pt Temp ABG pO2 at Pt Temp ABG HCO3 ABG Base Excess (Actual) Sodium 137 Potassium 3.7 Chloride 101 Carbon Dioxide 23 Anion Gap 17 BUN 69 H Creatinine 4.59 H* Estim Creat Clear Calc 33.1 Estimated GFR 15 POC Glucose 100 100 Random Glucose 95 Estimat Average Glucose Hemoglobin A1c % Lactic Acid Calcium 8.1 L Total Bilirubin 22.3 H AST 292 H ALT 81 H Alkaline Phosphatase 133 H Troponin I High Sens NT-Pro-B Natriuret Pep Total Protein 5.4 L Albumin 3.3 L Amylase Lipase Random Vancomycin COVID-19 ([facility]) COVID-19 Clin Com Microbiology Microbiology Results: Microbiology 06/01/25 10:53 Blood - Venous Blood Culture - Preliminary No growth after 48 hours. 06/01/25 10:52 Blood - Venous Blood Culture - Preliminary No growth after 48 hours. 05/31/25 10:02 Trachea Gram Stain - Final 05/31/25 10:02 Trachea Sputum Culture - Final Progress Note: A&P Assessment and plan (1) Shock: Status: Acute (2) Respiratory failure: Status: Acute (3) Renal failure: Status: Acute (4) Acute upper gastrointestinal hemorrhage: Status: Acute (5) Alcoholic cirrhosis: Status: Acute Plan Patient is a 29 Y M w/ alcohol misuse c/b cirrhosis, and morbid obesity, s/p gastric sleeve in 2014, presenting to ED on 05/27 w/ hematemesis, found?to be hypotensive, s/p massive transfusion protocol, and subsequently intubated; ICU course c/b persistent shock, c/f septic shock, and multi-system organ failure including respiratory and renal failure, initiated on hemodialysis 05/29; organ donation process initiated 06/03 - A/P: patient appears to be in no acute distress; ongoing psychosocial support provided to family at bedside Quality Stroke Does the patient have a stroke diagnosis?: No VTE Prior VTE?: No VTE Risk Level:: Medical - moderate - high VTE Device Contraindication: N/A - Device Ordered VTE Drug Contraindication: Treatment Not Tolerated
[2025-06-04 09:59] LABS: Hematocrit 22.2 % (42.0-52.0); Hemoglobin 7.9 g/dl (14.0-18.0); Imm Gran Abs Auto 0.31 X10*3/uL (0.00-0.03); Imm Gran Pct Auto 1.4 % (0.0-0.4); Lymphocytes Absolute Auto 0.9 X10*3/uL (1.2-4.9); MANUAL DIFF FLAG SCAN; Mean Corpuscular HGB Conc 35.6 g/dl (31.0-36.0); Mean Corpuscular Hemoglobin 32.0 pg (27.0-33.0); Mean Corpuscular Volume 89.9 fL (80.0-98.0); NRBC Abs Auto 0.000 X10*3/uL (0.0-0.012); NRBC Pct Auto 0.0 /100WBC (0.0-0.2); Red Blood Count 2.47 X10*6/uL (4.60-5.80); SCAN SMEAR FLAG 1; White Blood Count 22.5 X10*3/uL (4.8-10.8)
[2025-06-04] MEDS: Calcium Gluconate/NaCl,Iso-Osm 1 GM/50 ML PLAST..BAG IV (10:00)
[2025-06-04] MEDS: Albumin Human 25 % 50 ML 100 ML IV (10:00)
--- NOTE | 2025-06-04 10:00 | ECG_ITS ---
Test Reason : NEDS Blood Pressure : */* mmHG Vent. Rate : 89 BPM Atrial Rate : 89 BPM P-R Int : 132 ms QRS Dur : 92 ms QT Int : 368 ms P-R-T Axes : 23 20 -6 degrees QTcB Int : 447 ms Normal sinus rhythm Cannot rule out Anterior infarct , age undetermined Abnormal ECG When compared to the previous EKG of No significant changes seen Referred By: Niurka Ayala Electronically Signed By: BON KELLY MD
[2025-06-04 10:11] LABS: Platelet Count 70 X10*3/uL (160-400)
--- NOTE | 2025-06-04 10:17 | MHC.CLN ---
F/U PT TRANSITIONED TO PLAYERS CLUB REPRESENTATIVE; NEDS CASE PT REMAINS INTUBATED; SEDATION OFF SINCE 06/01 NPO DISCUSSED WITH PHARMACY TPN D/C FOLLOWING WITH TEAM AND WILL PROVIDE SUPPORT NEEDED
[2025-06-04 10:23] LABS: Fibrinogen 210 MG/DL (259-690); INTERNATIONAL NORM RATIO 1.7 (0.9-1.1); Partial Thromboplastin Time 39.1 SEC (26.7-34.1); Prothrombin Time 19.0 SEC (10.9-12.4)
[2025-06-04 10:25] LABS: Alanine Aminotransferase 88 U/L (0-40); Albumin Level 3.2 g/dL (3.5-5.0); Alkaline Phosphatase 136 U/L (39-117); Amylase 127 U/L (28-100); Anion Gap 16 (12-20); Aspartate Amino Transferase 304 U/L (5-37); Blood Urea Nitrogen 77 mg/dL (9-16); Calcium 8.2 mg/dL (8.4-10.2); Carbon Dioxide 24 mmol/L (22-29); Chloride 101 mmol/L (96-108); Creatinine Clr Calc Pharmacy 32.7; Estimated Glomerular Filt Rate 15; Lipase 53 U/L (8-78); Potassium 3.8 mmol/L (3.3-5.1); Sodium 137 mmol/L (135-145); Total Protein 5.3 g/dL (6.5-8.0)
[2025-06-04 10:26] LABS: D Dimer High Sensitivity 7341 NG/ML
[2025-06-04 10:46] LABS: NT Pro B Type Natriuretic Pept 14699.2 pg/mL (<300)
--- NOTE | 2025-06-04 11:09 | PC.NURSE ---
Addendum entered by Brenda Yang RN 06/04/25 19:22: heparin 30,000 unit given IVP per NEDs request prior to Extubation. Addendum entered by Brenda Yang RN 06/04/25 18:24: Transitioned to COLD ROLL OPERATOR and?compassionate extubated approx @ 1810 Family and CARLOS at beside.? Original Note: Assumed care @ 0700? Neuro/Resp: Off sedation/intubated, does not open eyes, does not follow commands,? Flaccid extremities (passive ROM performed)? Cardiac: Sinus Rhythm, on Phenylephrine gtt - per OCT, MAP goal >65.? GI/: LBM 06/03, +bowel sounds, FMD in place, POC Q6hr. Anuric Skin: ?Impaired skin integrity - see skin assessment (repositioning maintained)? Infectious: IV antibiotics? Lines: TLC L IJ, HD cath RIJ,? peripheral IV x2.
[2025-06-04 11:44] LABS: Glucose, Whole Blood 99 mg/dL (60-115)
--- NOTE | 2025-06-04 12:47 | HO.WOUND ---
Wound Consult: follow up Patient with recent transition to DNR/comfort measures. Patient with MASD to buttocks - treatment orders in place. Based on comfort based approach, orders remain appropriate. Please place new wound consult for further needs.
--- NOTE | 2025-06-04 13:07 | MHC.CM.PN ---
Pt is being followed by NEDS - family at bedside. CM available to support family if needed
--- NOTE | 2025-06-04 15:22 | PM.DDS ---
Discharge Sum: Prov Provider Primary care physician: BLANCA Herrera Consults: 05/30/25 17:45 Consult to NEDS ([facility]) Stat Consulting Provider: Loan MaoHanover 06/01/25 22:25 Consult to Wound Care Routine Reason for consultation: Open area to gluteal slit Discharge Sum: Diag Contributing Factors (1) Shock: (2) Respiratory failure: (3) Renal failure: (4) Acute upper gastrointestinal hemorrhage: (5) Alcoholic cirrhosis: Discharge Sum: Summary Date and Time Date of admission: 05/27/25 01:25 Summary Details: Mr. Morejon is a 29 year-old male with morbid obesity status post gastric sleeve in 2014 and alcohol misuse complicated by cirrhosis presenting to emergency department on 05/27 with hematemesis and found to be in hemorrhagic shock for which massive transfusion protocol was performed and he was intubated; Mr. Morejon's ICU course is complicated by multi-system organ failure characterized by hepatic, respiratory, and renal failure for which he was initiated on hemodialysis on 06/03; on 06/04, Mr. Morejon was transitioned to comfort-focused care Additional Data Attending physician: Celeste Pascal MD
[2025-06-04 16:03] LABS: MANUAL DIFF FLAG NO
[2025-06-04 16:06] LABS: Hematocrit 22.2 % (42.0-52.0); Hemoglobin 7.9 g/dl (14.0-18.0); Imm Gran Abs Auto 0.29 X10*3/uL (0.00-0.03); Imm Gran Pct Auto 1.3 % (0.0-0.4); Lymphocytes Absolute Auto 1.1 X10*3/uL (1.2-4.9); Mean Corpuscular HGB Conc 35.6 g/dl (31.0-36.0); Mean Corpuscular Hemoglobin 31.7 pg (27.0-33.0); Mean Corpuscular Volume 89.2 fL (80.0-98.0); NRBC Abs Auto 0.000 X10*3/uL (0.0-0.012); NRBC Pct Auto 0.0 /100WBC (0.0-0.2); Platelet Count 70 X10*3/uL (160-400); Red Blood Count 2.49 X10*6/uL (4.60-5.80); White Blood Count 22.3 X10*3/uL (4.8-10.8)
[2025-06-04 16:31] LABS: Fibrinogen 196 MG/DL (259-690); INTERNATIONAL NORM RATIO 1.7 (0.9-1.1); Partial Thromboplastin Time 37.9 SEC (26.7-34.1); Prothrombin Time 20.0 SEC (10.9-12.4)
[2025-06-04 16:32] LABS: D Dimer High Sensitivity 7583 NG/ML
[2025-06-04 16:52] LABS: Alanine Aminotransferase 90 U/L (0-40); Albumin Level 3.2 g/dL (3.5-5.0); Alkaline Phosphatase 126 U/L (39-117); Anion Gap 19 (12-20); Aspartate Amino Transferase 293 U/L (5-37); Blood Urea Nitrogen 82 mg/dL (9-16); Calcium 8.2 mg/dL (8.4-10.2); Carbon Dioxide 22 mmol/L (22-29); Chloride 101 mmol/L (96-108); Creatinine Clr Calc Pharmacy 33.0; Estimated Glomerular Filt Rate 15; Potassium 3.9 mmol/L (3.3-5.1); Sodium 138 mmol/L (135-145); Total Protein 5.2 g/dL (6.5-8.0)
[2025-06-04] MEDS: fentaNYL citrate/NS 1,000 MCG/100 ML PLAST..BAG 2.5 MCG IVCONT (17:01)
--- NOTE | 2025-06-04 18:19 | PC.RT ---
Pt terminally weaned and extubated per NEDS orders.
[2025-06-05] VITALS: PULSE 108; RESP 18; O2SAT 72
[2025-06-05 01:00] VITALS: PULSE 104; RESP 16; O2SAT 72
[2025-06-05 02:00] VITALS: PULSE 102; RESP 16; O2SAT 72
[2025-06-05] MEDS: fentaNYL citrate/NS 1,000 MCG/100 ML PLAST..BAG 7.5 MCG IVCONT (02:37)
--- NOTE | 2025-06-05 06:36 | PC.NURSE ---
Assumed care at 1900. Patient terminally extubated on prior shift, NEDS at bedside with family. Patient unresponsive, fentanyl gtt running per OCT for patient comfort. Snoring respirations, slightly labored.? 2009: Patient remains ST on tele, pulses noted, snoring RR continue. Patient no longer viable for organ donation. Family updated at the bedside, education and emotional support provided where needed. Patient does not appear to be in distress, repositioned as needed.?Plan of care ongoing.
--- NOTE | 2025-06-05 08:29 | PM.CCPN ---
Subjective Subjective Date of Service: 06/05/25 Interval History: transitioned to comfort-focused care 10 PM; appears comfortable Critical Care Time (minutes): 60 Physical Exam Vital Signs: Vital Signs: Last Vital Signs Temp 98.1 F 06/04/25 16:59 Pulse 102 H 06/05/25 02:00 Resp 16 06/05/25 02:00 BP 97/54 L 06/04/25 23:00 Pulse Ox 72 L 06/05/25 02:00 O2 Del Method Room Air 06/05/25 02:00 O2 Flow Rate 05/27/25 07:00 FiO2 70 06/04/25 16:59 BMI result Body Mass Index 44.1 Const: General: no acute distress HEENT: Head: Yes normal to inspection Eyes: General: appearance normal, both eyes and all related structures Neck: Neck: Yes normal visual inspection Chest: Chest palpation & inspection: normal inspection of the chest Resp: Effort & Inspection: normal respiratory effort GI: Inspection: Yes normal to inspection Skin: Other: appreciable jaundice Neuro: General: tone normal Extrem: Other: appreciable anasarca Psych: Other: unable to assess Objective Data Labs 06/04/25 15:56 06/04/25 15:56 Labs: Laboratory Results - last 24 hr 06/02/25 06/04/25 06/04/25 09:16 09:51 11:40 WBC 22.5 H RBC 2.47 L Hgb 7.9 L Hct 22.2 L MCV 89.9 MCH 32.0 MCHC 35.6 RDW 20.2 H Plt Count 70 L MPV 10.2 Immature Gran % (Auto) 1.4 H Neut % (Auto) 89.5 H Lymph % (Auto) 4.2 L [place] % (Auto) 4.8 Eos % (Auto) 0.0 Baso % (Auto) 0.1 Lymph # (Auto) 0.9 L [place] # (Auto) 1.1 Eos # (Auto) 0.0 Baso # (Auto) 0.0 Abs Immat Gran (auto) 0.31 H Absolute Neuts (auto) 20.1 H Absolute Nucleated RBC 0.000 Nucleated RBC % (auto) 0.0 Smear Tech's Comments VERIFIED PT 19.0 H INR 1.7 H APTT 39.1 H Fibrinogen 210 L D-Dimer High Sensitivty 7341 Sodium 137 Potassium 3.8 Chloride 101 Carbon Dioxide 24 Anion Gap 16 BUN 77 H Creatinine 4.64 H* Estim Creat Clear Calc 32.7 Estimated GFR 15 POC Glucose 99 Random Glucose 107 Lactic Acid 2.0 Calcium 8.2 L Total Bilirubin 22.7 H AST 304 H ALT 88 H Alkaline Phosphatase 136 H NT-Pro-B Natriuret Pep 77574.2 H Total Protein 5.3 L Albumin 3.2 L Amylase 127 H Lipase 53 Random Vancomycin Blood Type O Positive Antibody Screen NEGATIVE Crossmatch See Detail 06/04/25 15:56 WBC 22.3 H RBC 2.49 L Hgb 7.9 L Hct 22.2 L MCV 89.2 MCH 31.7 MCHC 35.6 RDW 18.9 H Plt Count 70 L MPV 10.7 Immature Gran % (Auto) 1.3 H Neut % (Auto) 88.6 H Lymph % (Auto) 4.8 L [place] % (Auto) 5.2 Eos % (Auto) 0.0 Baso % (Auto) 0.1 Lymph # (Auto) 1.1 L [place] # (Auto) 1.2 Eos # (Auto) 0.0 Baso # (Auto) 0.0 Abs Immat Gran (auto) 0.29 H Absolute Neuts (auto) 19.7 H Absolute Nucleated RBC 0.000 Nucleated RBC % (auto) 0.0 Smear Tech's Comments PT 20.0 H INR 1.7 H APTT 37.9 H Fibrinogen 196 L D-Dimer High Sensitivty 7583 Sodium 138 Potassium 3.9 Chloride 101 Carbon Dioxide 22 Anion Gap 19 BUN 82 H Creatinine 4.61 H* Estim Creat Clear Calc 33.0 Estimated GFR 15 POC Glucose Random Glucose 103 Lactic Acid Calcium 8.2 L Total Bilirubin 22.7 H AST 293 H ALT 90 H Alkaline Phosphatase 126 H NT-Pro-B Natriuret Pep Total Protein 5.2 L Albumin 3.2 L Amylase Lipase Random Vancomycin 14.9 L Blood Type Antibody Screen Crossmatch Microbiology Microbiology Results: Microbiology 06/01/25 10:53 Blood - Venous Blood Culture - Preliminary No growth after 48 hours. 06/01/25 10:52 Blood - Venous Blood Culture - Preliminary No growth after 48 hours. 05/31/25 10:02 Trachea Gram Stain - Final 05/31/25 10:02 Trachea Sputum Culture - Final Progress Note: A&P Assessment and plan (1) Shock: Status: Acute (2) Alcoholic liver failure: Status: Acute (3) Respiratory failure: Status: Acute (4) Renal failure: Status: Acute (5) Acute upper gastrointestinal hemorrhage: Status: Acute Plan Mr. Morejon is a 29 year-old male with morbid obesity status post gastric sleeve in 2014 and alcohol misuse complicated by cirrhosis presenting to emergency department on 05/27 with hematemesis and found to be in hemorrhagic shock for which massive transfusion protocol was performed and he was intubated; Mr. Morejon's ICU course is complicated by multi-system organ failure characterized by hepatic, respiratory, and renal failure for which he was initiated on hemodialysis on 06/03; on 06/04, Mr. Morejon was transitioned to comfort-focused care - A/P: appears comfortable; to continue comfort-focused process Quality Stroke Does the patient have a stroke diagnosis?: No VTE Prior VTE?: No VTE Risk Level:: Medical - moderate - high VTE Device Contraindication: N/A - Device Ordered VTE Drug Contraindication: Treatment Not Tolerated
[2025-06-05] MEDS: Morphine Sulfate/NS 100 MG/100 ML PLAST..BAG IVCONT (12:32)
--- NOTE | 2025-06-05 14:14 | PC.NURSE ---
Assumed care of patient 0700. discussed with family that patient may be transferred to Medical-Telemetry floor as comfort measures only. Patient provided bed bath per family request [phone]. 14:00 Patient transferred to Med-tele 471. RN to RN report given. Patient remains on ICU specialty bed to avoid discomfort of sliding to a new bed. Warm handover done at 4th floor bedside with family and Med-tele RNs. Morphine gtt @ 6mg/hr. Family educated on preventing air hunger for patient and availability of PRN medications for comfort measures.
[2025-06-05 22:00] VITALS: RESP 20
--- NOTE | 2025-06-05 23:00 | PM.DDS ---
Discharge Sum: Prov Provider Primary care physician: BLANCA Herrera Discharge Sum: Diag Contributing Factors (1) Shock: (2) Alcoholic liver failure: (3) Respiratory failure: (4) Renal failure: (5) Acute upper gastrointestinal hemorrhage: Discharge Sum: Summary Date and Time Date of admission: 05/27/25 01:25 Date of : 06/05/25 Time of : 10:51 Summary Details: Mr. Morejon is a 29 year-old male with morbid obesity status post gastric sleeve in 2014 and alcohol misuse complicated by cirrhosis presenting to emergency department on 05/27 with hematemesis and found to be in hemorrhagic shock for which massive transfusion protocol was performed and he was intubated; Mr. Morejon's ICU course is complicated by multi-system organ failure characterized by hepatic, respiratory, and renal failure for which he was initiated on hemodialysis on 06/03; on 06/04, Mr. Morejon was transitioned to comfort-focused care On 06/05/2025 at 1045 p.m. RN mentioned that patient appeared to have passed. I went and examined the patient. Patient was not responding . Pupils are fixed and dilated. Patient pronounced at 22:51. Patient's family at bedside. Additional Data Attending physician: Xu Damon MD
[2025-06-08 11:49] LABS: Calcium, Ionized 4.7 mg/dL (4.7-5.5)
[2025-06-09 19:24] LABS: CK-BB None Detected (None Detected); CK-MB 2 % (<5); CK-MM 81 % (95-100); Creatine Kinase,Total,Serum 64 U/L (26-366)
[2025-06-09 19:24] LABS: CK-BB None Detected (None Detected); CK-MB 2 % (<5); CK-MM 85 % (95-100); Creatine Kinase,Total,Serum 86 U/L (26-366)
== END 2025-06-06 03:30 | disposition expired | DRG 280 ==
LOC: HO.ED 01:25 → HO.EDOVER 01:32 → HO.ICU 01:59 → HO.IMC 06-05 12:21
PROVIDERS: Internal Medicine Critical Care Medicine; Internal Medicine Gastroenterology; Nurse Practitioner Family; Admitting Provider Physician Assistant Medical; Emergency Provider Student in an Organized Health Care Education/Training Program; Visit Provider Internal Medicine
PROC: 0DJ08ZZ Inspection of Upper Intestinal Tract, Via Natural or Artificial Opening Endoscopic (ICD-10-PCS; CPT 43235; principal; 2025-05-27 12:00)
DX: K70.31 Alcoholic cirrhosis of liver with ascites (principal); K70.40 Alcoholic hepatic failure without coma; R57.8 Other shock; N17.0 Acute kidney failure with tubular necrosis; J69.0 Pneumonitis due to inhalation of food and vomit; I85.11 Secondary esophageal varices with bleeding; G93.41 Metabolic encephalopathy; K22.11 Ulcer of esophagus with bleeding; K70.10 Alcoholic hepatitis without ascites; K22.6 Gastro-esophageal laceration-hemorrhage syndrome; E87.21 Acute metabolic acidosis; D62 Acute posthemorrhagic anemia; D63.8 Anemia in other chronic diseases classified elsewhere; E88.09 Other disorders of plasma-protein metabolism, not elsewhere classified; E86.1 Hypovolemia; K44.9 Diaphragmatic hernia without obstruction or gangrene; Z66 Do not resuscitate; Z51.5 Encounter for palliative care; K76.6 Portal hypertension; D68.4 Acquired coagulation factor deficiency; K31.89 Other diseases of stomach and duodenum; F10.20 Alcohol dependence, uncomplicated; E66.01 Morbid (severe) obesity due to excess calories; Z98.84 Bariatric surgery status; Z68.41 Body mass index [BMI] 40.0-44.9, adult; Z20.822 Contact with and (suspected) exposure to COVID-19; Z79.899 Other long term (current) drug therapy
CPT/HCPCS: 36415; 36600; 70450; 71045; 71250; 74176; 80048; 80053; 80202; 81001; 82040; 82140; 82150; 82247; 82248; 82330; 82552; 82803; 82947; 83036; 83605; 83690; 83735; 83880; 84100; 84478; 84484; 85007; 85014; 85018; 85025; 85027; 85379; 85384; 85610; 85730; 86704; 86706; 86850; 86900; 86901; 86920; 86923; 87040; 87070; 87205; 87340; 87635; 90999; 93005; 93306; 94002; 94003; 94640; 99283; J0131; J0168; J0330; J0613; J0737; J1364; J1596; J1720; J1836; J1938; J1956; J2151; J2185; J2270; J2354; J2371; J2405; J2470; J2598; J2704; J2919; J3010; J3373; J3374; J3480; J7120; J7168; P9016; P9017; P9047; P9073; Q9957

== ENCOUNTER 2025-05-27 01:25 | Outpatient (BNV) | payer OTHER, SELFPAY | END 2025-06-01 14:25 | PROVIDERS: Admitting Provider Physician Assistant Medical; Emergency Provider Student in an Organized Health Care Education/Training Program; Visit Provider Radiology Diagnostic Radiology | DX: G40.89 Other seizures (principal) | CPT/HCPCS: 70450 ==

== ENCOUNTER 2025-05-27 01:25 | Outpatient (BNV) | payer OTHER, SELFPAY | END 2025-05-27 03:51 | PROVIDERS: Admitting Provider Physician Assistant Medical; Emergency Provider Student in an Organized Health Care Education/Training Program; Visit Provider Radiology Diagnostic Radiology | DX: Z45.2 Encounter for adjustment and management of vascular access device (principal) | CPT/HCPCS: 71045 ==

== ENCOUNTER 2025-05-27 01:25 | Outpatient (BNV) | payer OTHER, SELFPAY | END 2025-06-04 07:00 | PROVIDERS: Admitting Provider Physician Assistant Medical; Emergency Provider Student in an Organized Health Care Education/Training Program; Visit Provider Internal Medicine Cardiovascular Disease | DX: Z52.9 Donor of unspecified organ or tissue (principal); R94.31 Abnormal electrocardiogram [ECG] [EKG]; Z13.6 Encounter for screening for cardiovascular disorders | CPT/HCPCS: 93010; 93306 ==

== ENCOUNTER 2025-05-27 01:25 | Outpatient (BNV) | payer OTHER, SELFPAY | END 2025-06-04 00:40 | PROVIDERS: Admitting Provider Physician Assistant Medical; Emergency Provider Student in an Organized Health Care Education/Training Program; Visit Provider Radiology Diagnostic Radiology | DX: K74.60 Unspecified cirrhosis of liver (principal); K80.20 Calculus of gallbladder without cholecystitis without obstruction; J18.9 Pneumonia, unspecified organism | CPT/HCPCS: 71250; 74176 ==

== ENCOUNTER 2025-05-27 01:25 | Outpatient (BNV) | payer OTHER, SELFPAY | END 2025-05-29 12:13 | PROVIDERS: Admitting Provider Physician Assistant Medical; Emergency Provider Student in an Organized Health Care Education/Training Program; Visit Provider Specialist | DX: K92.0 Hematemesis (principal) | CPT/HCPCS: 71045 ==

== ENCOUNTER → 2025-05-27 01:25 | Outpatient (BNV) | payer OTHER, SELFPAY | PROVIDERS: Admitting Provider Physician Assistant Medical; Emergency Provider Student in an Organized Health Care Education/Training Program; Visit Provider Internal Medicine Hypertension Specialist | DX: N17.9 Acute kidney failure, unspecified (principal) | CPT/HCPCS: 99232 ==

== ENCOUNTER → 2025-05-27 01:25 | Outpatient (BNV) | payer OTHER, SELFPAY | PROVIDERS: Admitting Provider Physician Assistant Medical; Emergency Provider Student in an Organized Health Care Education/Training Program; Visit Provider Internal Medicine Gastroenterology | DX: K70.30 Alcoholic cirrhosis of liver without ascites (principal); K92.2 Gastrointestinal hemorrhage, unspecified; K22.11 Ulcer of esophagus with bleeding; K76.6 Portal hypertension; K31.89 Other diseases of stomach and duodenum | CPT/HCPCS: 43255; 99499 ==

== ENCOUNTER → 2025-05-27 01:25 | Outpatient (BNV) | payer OTHER, SELFPAY | PROVIDERS: Admitting Provider Physician Assistant Medical; Emergency Provider Student in an Organized Health Care Education/Training Program; Visit Provider Hospitalist | DX: R57.9 Shock, unspecified (principal); K70.40 Alcoholic hepatic failure without coma; J96.90 Respiratory failure, unspecified, unspecified whether with hypoxia or hypercapnia; N19 Unspecified kidney failure; K92.2 Gastrointestinal hemorrhage, unspecified | CPT/HCPCS: 99238 ==

== ENCOUNTER → 2025-05-27 01:25 | Outpatient (BNV) | payer OTHER, SELFPAY | PROVIDERS: Admitting Provider Physician Assistant Medical; Emergency Provider Student in an Organized Health Care Education/Training Program; Visit Provider Physician Assistant Medical | DX: K92.2 Gastrointestinal hemorrhage, unspecified (principal) | CPT/HCPCS: 36556; 99233; 99291; 99292 ==